=== PATIENT | male | born 1965 | race Caucasian/White ===

== ENCOUNTER 2017-12-29 09:04 | Observation (INO) ==
[2017-12-29] MEDS ORDERED: Ondansetron 4 MG/2 ML VIAL IVP PRN (09:26)
[2017-12-29] MEDS ORDERED: 0.9 % Sodium Chloride 1,000 ML IVC ONE ×5 (09:26→19:47)
[2017-12-29] MEDS ORDERED: *HR* FentaNYL (PF) 100 MCG/2 ML VIAL IVP ONE ×2 (09:26→11:19)
--- NOTE | 2017-12-29 09:42 | Emergency Department Note ---
Disposition Clinical Impression: Weakness generalized Rhabdomyolysis Qualifiers: Rhabdomyolysis type: traumatic Encounter type: initial encounter Qualified Code (s): T79.6XXA - Traumatic ischemia of muscle, initial encounter Disposition: Admitted As Inpatient Condition: Fair Time of Disposition: 13:53 Fall HPI - General Chief Complaint: ED Fall Stated Complaint: weakness/Fall Time Seen by Provider: 12/29/17 09:07 Source: patient, EMS Mode of arrival: ambulatory Limitations: altered mental status Nursing Notes Reviewed: Yes Vital Signs Reviewed: Yes - History of Present Illness HPI Narrative: 52 yo male cc head and neck pain after a fall three days ago, mechanical fall from standing after getting out of bed and was feeling very weak. He hit his head on the nightstand next to the bed. Patient did not have a loss of consciousness but has sudden onset of neck and pain in back of his head. Due to his weakness he was unable to go any further but was able to climb back into the bed. Patient states he stayed in bed for 3 days after which he tried to get out of bed this morning but fell back into the bed weak. A friend of his daughter came by and noticed him screaming for help. She called EMS. Patient states he got sharp pain in the middle of the spine from his lower cervical spine to his mid thoracic. Patient states the pain 10 out of 10, sharp , constant and worse with movement. Patient denies any recent illness viral or bacterial. - Related Data Home Medications Medication Instructions Recorded Confirmed Albuterol Sulfate [Ventolin Hfa] 2 puff IH Q4-6H PRN 12/29/17 12/29/17 Buspirone HCl [Buspar] 10 mg PO TID 12/29/17 12/29/17 Gabapentin [Neurontin] 800 mg PO QID 12/29/17 12/29/17 HydrOXYzine Pamoate [Vistaril] 50 mg PO TID 12/29/17 12/29/17 Nortriptyline HCl 50 mg PO BID 12/29/17 12/29/17 OLANZapine [Zyprexa] 20 mg PO DAILY 12/29/17 12/29/17 Allergies Allergy/AdvReac Type Severity Reaction Status Date / Time No Known Allergies Allergy Verified 04/02/17 06:02 Constitutional: Reports: weakness. Denies: fever, chills ENT ED: Denies: congestion Cardiovascular: Denies: chest pain Respiratory: Denies: cough Gastrointestinal: Denies: abdominal pain Musculoskeletal: Reports: back pain, neck pain Neurological: Reports: weakness. Denies: headache Fall PMH - Past Medical History Medical history: Reports: non-contributory Surgical history: Reports: non-contributory Psychiatric history: Reports: bipolar - Social History Smoking Status: Current every day smoker Alcohol use: Reports: none Drug use: Reports: none Physical Exam Vital Signs Temperature 98.4 F 12/29/17 09:06 Pulse Rate 73 12/29/17 09:06 Respiratory Rate 15 12/29/17 09:06 Blood Pressure 115/77 12/29/17 09:06 O2 Sat by Pulse Oximetry 93 12/29/17 09:06 Temperature 98.4 F 12/29/17 09:06 Pulse Rate 107 12/29/17 10:36 Respiratory Rate 18 12/29/17 10:36 Blood Pressure 124/75 12/29/17 10:36 O2 Sat by Pulse Oximetry 97 12/29/17 10:36 Oxygen Delivery Oxygen Delivery Nasal Cannula CONSTITUTIONAL: Alert and oriented X3, Pt looks unwell but not toxic. GCS 15, poorly nourished HEAD: Normocephalic; atraumatic. EYES: PERRL, no scleral icterus. NOSE: The nose is normal in appearance without rhinorrhea Mouth: oral mucosa very dry. RESP: Normal chest excursion with respiration; breath sounds clear and equal bilaterally; no wheezes, rhonchi, or rales CARD: Regular rhythm, without murmurs, rub or gallop ABD: Non-distended; non-tender, soft,without rigidity, rebound or guarding SKIN: Normal for age and race; warm and dry; no apparent lesions EXTREMITIES: Pulses are 2 plus and equal times 4 extremities, no peripheral edema or calf muscle pain. Bilateral LE extremely weak against gravity. NEUROLOGICAL: Patient is alert and oriented times three. Cranial nerves III- XII are intact. Sensory and motor functions are intact. Strength is 5/5 for flexion and extension in all 4 extremities. Patellar DTRS are equal and intact. Finger to nose testing is equal and normal bilaterally. No dysdiadochokinesis - General Limitations: no limitations General appearance: alert Course - Reevaluation(s) Reevaluation #1: CK elevated for Rhabdo Pt doing well. Time: 11:03 Reevaluation #2: Repeat dose of fentanyl ordered Time: 11:30 Reevaluation #3: LP accomplished and samples walked down to the lab. Time: 13:15 - Consultations Consultation #1: Dr. Cornejo, the [facility] has accepted Pt for admission at 1117hrs Time: 11:17 Vital Signs Temperature 98.4 F 12/29/17 09:06 Pulse Rate 73 12/29/17 09:06 Respiratory Rate 15 12/29/17 09:06 Blood Pressure 115/77 12/29/17 09:06 O2 Sat by Pulse Oximetry 93 12/29/17 09:06 Temperature 104.0 F H 12/29/17 19:34 Pulse Rate 129 12/29/17 19:34 Respiratory Rate 20 12/29/17 19:34 Blood Pressure 80/47 12/29/17 19:34 O2 Sat by Pulse Oximetry 96 12/29/17 19:34 Oxygen Delivery Oxygen Delivery Nasal Cannula Fall - MDM Narrative Medical decision making narrative: ground level mechanical fall secondary to extreme weakness x 3days ago Pt was be. Pt hit head on night stand, no loss of consciousness. Patient concerns me for possible intracranial hemorrhage, spinal cord injury, rhabdomyolysis, Guillain-[place]. Patient's CK came back elevated at 1657, and patient started on fluids for rhabdomyolysis, and Willis place for strict I/O to monitor renal function. Patient given fentanyl for pain, Lumbar puncture was accomplished. CSF studies sent off to the lab. Current plan is for admission for rhabdomyolysis, generalized weakness with bilateral lower extremities extremely weak when compared to upper extremities. Need to rule out causes for possible ascending weakness of Guillain[place], as well as possible spinal cord injury. Recommend MRI of spine since CT scans were negative for fractures. Patient understands and agrees to treatment and decision for admission. Patient 's daughter at bedside informed of the workup at her father's request. She also agrees with decision for admission. Patient CSF study came back positive for elevated proteins greater than 200 and neutrophils of 169, and placed on droplet precautions for concerns for meningitis but after review by infectious disease and feels more likely viral meningitis. Dr. Cornejo, the [facility] has accepted Pt for admission at 1117hrs - Lab Data Lab results reviewed: Yes I reviewed the patient's lab results. Lab results narrative: Short CBC 12/29/17 Range/Units 09:35 WBC 14.0 H (4.3-11.1) K/mcL Hgb 13.7 (12.9-16.9) g/dL Hct 40.9 (37.5-50.1) % Plt Count 187 (140-400) K/mcL Neutrophils # 12.2 H (1.6-8.9) K/mcL BMP 12/29/17 Range/Units 09:35 Sodium 136 (136-145) mEq/L Potassium 3.2 L (3.5-5.1) mEq/L Chloride 102 (98-107) mEq/L Carbon Dioxide 24 (23-29) mEq/L BUN 20 (6-20) mg/dL Creatinine 1.17 (0.70-1.30) mg/dL Glucose 113 H (70-105) mg/dL Calcium 9.4 (8.6-10.3) mg/dL Cardiac Enzymes 12/29/17 Range/Units 09:35 Troponin I 0.03 (< 0.04) ng/mL Liver Function 12/29/17 Range/Units 09:35 Total Bilirubin 0.8 (0.3-1.0) mg/dL AST 64 H (13-39) Units/L ALT 27 (7-52) Units/L Alkaline Phosphatase 72 (34-104) Units/L Albumin 3.7 (3.5-5.7) g/dL Result diagrams: 12/29/17 09:35 12/29/17 09:35 Lab Results 12/29/17 12/29/17 12/29/17 Range/Units 09:35 09:35 09:35 WBC 14.0 H (4.3-11.1) K/mcL RBC 4.96 (4.19-5.50) M/mcL Hgb 13.7 (12.9-16.9) g/dL Hct 40.9 (37.5-50.1) % MCV 82.5 L (83.0-100.0) fL MCH 27.6 L (28.0-33.3) pg MCHC 33.5 (31.6-35.5) g/dL RDW 13.7 (11.5-14.5) % Plt Count 187 (140-400) K/mcL MPV 10.1 (9.4-12.4) fL Immature Gran % 0.9 (0-4) % Seg Neutrophils % 86.7 % Lymphocytes % 5.0 % Monocytes % 7.3 % Eosinophils % 0.0 % Basophils % 0.1 % Neutrophils # 12.2 H (1.6-8.9) K/mcL Lymphocytes # 0.7 (0.6-4.6) K/mcL Monocytes # 1.0 (0.0-1.3) K/mcL Eosinophils # 0.0 (0.0-0.6) K/mcL Basophils # 0.0 (0.0-0.2) K/mcL Sodium 136 (136-145) mEq/L Potassium 3.2 L (3.5-5.1) mEq/L Chloride 102 (98-107) mEq/L Carbon Dioxide 24 (23-29) mEq/L BUN 20 (6-20) mg/dL Creatinine 1.17 (0.70-1.30) mg/dL Est GFR ( Amer) > 60 (> 60) Est GFR (Non-Af Amer) > 60 (> 60) BUN/Creatinine Ratio 17 (6-26) Glucose 113 H (70-105) mg/dL Calculated Osmolality 285 (280-300) Calcium 9.4 (8.6-10.3) mg/dL Total Bilirubin 0.8 (0.3-1.0) mg/dL AST 64 H (13-39) Units/L ALT 27 (7-52) Units/L Alkaline Phosphatase 72 (34-104) Units/L Creatine Kinase 1857 H (30-223) Units/L Troponin I 0.03 (< 0.04) ng/mL Serum Total Protein 7.6 (6.4-8.9) g/dL Albumin 3.7 (3.5-5.7) g/dL Globulin 3.9 H (2.4-3.5) g/dL Albumin/Globulin Ratio 0.9 L (1.1-2.2) TSH 0.434 (0.340-5.600) mcIU/mL Urine Color (Yellow) Urine Clarity (Clear) Urine pH (5.0-8.0) pH Units Ur Specific [place] (1.010-1.025) Urine Protein (Neg-Trace) mg/dL Urine Glucose (UA) (Normal) mg/dL Urine Ketones (Negative) mg/dL Urine Blood (Negative) Urine Nitrite (Negative) Urine Bilirubin (Negative) Urine Urobilinogen (Normal) mg/dL Ur Leukocyte Esterase (Negative) Urine Microscopic RBC (0-3) per hpf Urine Microscopic WBC (0-3) per hpf Ur Squamous Epith Cells (None-Few) per lpf Ur Renal Epithelial Cell (None-Few) per hpf Urine Bacteria (None-Few) per hpf Hyaline Casts (None-Few) per lpf Urine Mucus (Few) Ur Culture Indicated? (NO) 12/29/17 Range/Units 11:30 WBC (4.3-11.1) K/mcL RBC (4.19-5.50) M/mcL Hgb (12.9-16.9) g/dL Hct (37.5-50.1) % MCV (83.0-100.0) fL MCH (28.0-33.3) pg MCHC (31.6-35.5) g/dL RDW (11.5-14.5) % Plt Count (140-400) K/mcL MPV (9.4-12.4) fL Immature Gran % (0-4) % Seg Neutrophils % % Lymphocytes % % Monocytes % % Eosinophils % % Basophils % % Neutrophils # (1.6-8.9) K/mcL Lymphocytes # (0.6-4.6) K/mcL Monocytes # (0.0-1.3) K/mcL Eosinophils # (0.0-0.6) K/mcL Basophils # (0.0-0.2) K/mcL Sodium (136-145) mEq/L Potassium (3.5-5.1) mEq/L Chloride (98-107) mEq/L Carbon Dioxide (23-29) mEq/L BUN (6-20) mg/dL Creatinine (0.70-1.30) mg/dL Est GFR ( Amer) (> 60) Est GFR (Non-Af Amer) (> 60) BUN/Creatinine Ratio (6-26) Glucose (70-105) mg/dL Calculated Osmolality (280-300) Calcium (8.6-10.3) mg/dL Total Bilirubin (0.3-1.0) mg/dL AST (13-39) Units/L ALT (7-52) Units/L Alkaline Phosphatase (34-104) Units/L Creatine Kinase (30-223) Units/L Troponin I (< 0.04) ng/mL Serum Total Protein (6.4-8.9) g/dL Albumin (3.5-5.7) g/dL Globulin (2.4-3.5) g/dL Albumin/Globulin Ratio (1.1-2.2) TSH (0.340-5.600) mcIU/mL Urine Color Dark Yellow (Yellow) Urine Clarity Hazy (Clear) Urine pH 6.5 (5.0-8.0) pH Units Ur Specific [place] 1.025 (1.010-1.025) Urine Protein 30 H (Neg-Trace) mg/dL Urine Glucose (UA) Normal (Normal) mg/dL Urine Ketones Trace H (Negative) mg/dL Urine Blood Negative (Negative) Urine Nitrite Positive A (Negative) Urine Bilirubin Small H (Negative) Urine Urobilinogen Normal (Normal) mg/dL Ur Leukocyte Esterase Negative (Negative) Urine Microscopic RBC 0-3 (0-3) per hpf Urine Microscopic WBC 3-5 H (0-3) per hpf Ur Squamous Epith Cells Moderate H (None-Few) per lpf Ur Renal Epithelial Cell Few (None-Few) per hpf Urine Bacteria Many H (None-Few) per hpf Hyaline Casts None Seen (None-Few) per lpf Urine Mucus Few (Few) Ur Culture Indicated? YES A (NO) - Radiology Data Radiology results reviewed: Yes I reviewed the patient's radiology results. Cervical Spine CT 12/29/17 09:24 IMPRESSION: No acute abnormality of the cervical spine. Postoperative changes in the cervical spine as described above. D/ / Albin Bray MD / Albin Bray MD Interpreting Provider: Albin Bray MD Head CT 12/29/17 09:24 IMPRESSION: No acute intracranial abnormality. D/ / Jayson Londono MD / Jayson Londono MD Interpreting Provider: Jayson Londono MD Lumbar Spine CT 12/29/17 09:24 IMPRESSION: Multilevel degenerative disc disease of the thoracolumbar spine. No convincing evidence for acute fracture or malalignment. 4 mm right upper lobe pulmonary nodule. Dedicated CT of the chest recommended for further evaluation on a nonemergent/outpatient basis. . D/ / Cliff Huitron MD / Cliff Huitron MD Interpreting Provider: Cliff Huitron MD Thoracic Spine CT 12/29/17 09:24 IMPRESSION: Multilevel degenerative disc disease of the thoracolumbar spine. No convincing evidence for acute fracture or malalignment. 4 mm right upper lobe pulmonary nodule. Dedicated CT of the chest recommended for further evaluation on a nonemergent/outpatient basis. . D/ / Cliff Huitron MD / Cliff Huitron MD Interpreting Provider: Cliff Huitron MD - EKG Data EKG attestation: Yes I reviewed and interpreted this EKG. EKG shows normal: sinus rhythm Rate: tachycardia Rhythm: NSR ST segment depression in: v4 When compared to previous EKG there are: changes noted (04/02/2017) Interpretation: nonspecific ST-T wave changes Attestation Statement - Attestation Attestation: I, Oscar Hankins, examined this patient and my medical decision-making was reviewed with the HRBP/PA/Advanced Practice Nurse/Resident Physician. I agree with the documented findings, disposition and treatment plan as described except to the extent set forth below. History limitations: Patient condition 52-year-old male presents emergency Department with concerns of weakness. Patient states he fell 3 days ago while getting out of his bed, he was able to pull himself back into the bed however he has been unable to move or ambulate since that time. Patient reports pain and lack of sensation to the bilateral lower extremities. He also reports he is unable to flex his hips or knees secondary to weakness. Reflexes are present to the bilateral patellar area. CT of the head and spine are negative for acute fracture or intracranial hemorrhage. Patient has elevated CPK which coincides with his history of being confined to his bed. Initial troponin negative. Lumbar puncture was performed with the resident after a discussion of risks and benefits with the patient and with family. He had elevated white count in his CSF and he was placed on empiric droplet precautions and given 2 g of ceftriaxone until we had further results. I also had concerns of possible Guillain-[place] variant. Neurologist states that this is unlikely with elevated white blood cell count in the CSF. Patient will be admitted to hospital for further care and evaluation.
[2017-12-29 10:28] LABS: Basophils % 0.1 %; Hematocrit 40.9 % (37.5-50.1); Hemoglobin 13.7 g/dL (12.9-16.9); Immature Granulocytes % 0.9 % (0-4); Lymphocytes # 0.7 K/mcL (0.6-4.6); Mean Corpuscular HGB Conc 33.5 g/dL (31.6-35.5); Mean Corpuscular Hemoglobin 27.6 pg (28.0-33.3); Mean Corpuscular Volume 82.5 fL (83.0-100.0); Mean Platelet Volume 10.1 fL (9.4-12.4); Monocytes % 7.3 %; Neutrophils # 12.2 K/mcL (1.6-8.9); Platelet Count 187 K/mcL (140-400); Red Blood Count 4.96 M/mcL (4.19-5.50); Red Cell Distribution Width 13.7 % (11.5-14.5); Segmented Neutrophils % 86.7 %
[2017-12-29 10:31] LABS: Alanine Aminotransferase 27 Units/L (7-52); Albumin 3.7 g/dL (3.5-5.7); Albumin/Globulin Ratio 0.9 (1.1-2.2); Alkaline Phosphatase 72 Units/L (34-104); Aspartate Amino Transferase 64 Units/L (13-39); BUN/Creatinine Ratio 17 (6-26); Bilirubin,Total 0.8 mg/dL (0.3-1.0); Blood Urea Nitrogen 20 mg/dL (6-20); Calcium 9.4 mg/dL (8.6-10.3); Carbon Dioxide 24 mEq/L (23-29); Chloride 102 mEq/L (98-107); Creatine Kinase 1857 Units/L (30-223); Globulin 3.9 g/dL (2.4-3.5); Glucose 113 mg/dL (70-105); Osmolality,Calculated 285 (280-300); Potassium 3.2 mEq/L (3.5-5.1); Sodium 136 mEq/L (136-145); Total Protein 7.6 g/dL (6.4-8.9); eGFR For African Americans > 60 (> 60); eGFR For Non-African Americans > 60 (> 60)
[2017-12-29 10:42] LABS: Thyroid Stimulating Hormone 0.434 mcIU/mL (0.340-5.600)
[2017-12-29 11:42] LABS: Bilirubin,Urine Small (Negative); Blood,Urine Negative (Negative); Color,Urine Dark Yellow (Yellow); Glucose,Urine (UA) Normal (Normal); Ketones,Urine Trace mg/dL (Negative); Leukocyte Esterase,Urine Negative (Negative); Nitrite,Urine Positive (Negative); PH,Urine 6.5 pH Units (5.0-8.0); Protein,Urine 30 mg/dL (Neg-Trace); Specific Gravity,Urine 1.025 (1.010-1.025); Urobilinogen,Urine Normal (Normal)
[2017-12-29 11:44] LABS: Bacteria,Urine Many per hpf (None-Few); Hyaline Casts,Urine None Seen per lpf (None-Few); RBC,Urine 0-3 per hpf (0-3); Squamous Epithelial Cell,Urine Moderate per lpf (None-Few)
[2017-12-29 11:45] LABS: Clarity,Urine Hazy (Clear)
[2017-12-29 11:59] LABS: Mucus,Urine Few (Few)
[2017-12-29 12:00] LABS: Renal Epithelial Cells,Urine Few per hpf (None-Few)
--- NOTE | 2017-12-29 13:00 | Internal Med History&Physical ---
Date of Encounter: 12/29/17 Time of Encounter: 12:58 Assessment and Plan (1) Weakness of both lower extremities Current visit: No Status: Acute CT-Lumbar spine neg for fx or dx MRI L-spine pending Neurology consulted LP done and CSF labs pending (2) Rhabdomyolysis Current visit: No Status: Acute Qualifiers: Rhabdomyolysis type: traumatic Encounter type: initial encounter Qualified Code(s): T79.6XXA - Traumatic ischemia of muscle, initial encounter (3) Acute chest wall pain Current visit: No Status: Acute S/p fall hitting chest on night stand CXR pending Troponin nl but continue to trend (4) UTI (urinary tract infection) Current visit: No Status: Acute Rocephin started Qualifiers: Urinary tract infection type: site unspecified Hematuria presence: without hematuria Qualified Code(s): N39.0 - Urinary tract infection, site not specified Internal Medicine - H&P: HPI Chief complaint: fall History of present illness: 52 year old man who presented in the ER this am c/o of head and neck pain after a fall three days ago. He describes a mechanical fall from standing height landing on a carpeted floor and hitting his chest on the night stand. He hit his head on the floor (he thinks). He recalls he did not pass out and fall but tripped and fell. He lay on the floor about two hours before friends staying with him helped him back into bed where he sttayed for three days. He states he could not feel or move his legs at the time he was placed in bed and EMS was not called. He denies using ETOH or illicit drugs. Today he continues to state he cannot fell or move either leg, but withdrew his hip and lower extremity when either toe was squeezed. He felt pain too. He appears to have a UTI and has a leukocytosis. A UDS was ordered and the ER attending performed a LP. Labs are pending. His CT-head, C-spine, T-spine and L-Spine do not show acute fractures or dislocations. An MRI L-spine is also pending. He's A&Ox3 and hemodymaically stable. Additionally his CK is elevated raising concern for impending rhabdomyolysis but he has normal renal function now. . Past Med Surg Social Fam HX - Past Medical History Medical history: non-contributory Psychiatric history: bipolar - Past Surgical History Surgical History: non-contributory - Social History Smoking Status: Current every day smoker Smokeless Tobacco Status: No Alcohol use: none Drug use: none Internal Medicine - H&P: Meds Albuterol Sulfate [Ventolin Hfa] 2 puff IH Q4-6H PRN 12/29/17 [History] Buspirone HCl [Buspar] 10 mg PO TID 12/29/17 [History] Gabapentin [Neurontin] 800 mg PO QID 12/29/17 [History] HydrOXYzine Pamoate [Vistaril] 50 mg PO TID 12/29/17 [History] Nortriptyline HCl 50 mg PO BID 12/29/17 [History] OLANZapine [Zyprexa] 20 mg PO DAILY 12/29/17 [History] 3 Allergy/AdvReac Type Severity Reaction Status Date / Time No Known Allergies Allergy Verified 04/02/17 06:02 All Systems PM: A 10-system review of systems was performed and is negative for pertinent findings except as documented above in the HPI. - Constitutional Constitutional: falls, lethargy, weakness, no anorexia, no chills, no excessive sweating - EENT Eyes: no blurry vision, no change in vision, no diplopia, no photophobia, no seeing flashes, no tunnel vision Nose, mouth and throat: no bleeding gums, no dry mouth, no mouth lesions, no nasal congestion, no nasal obstruction - Cardiovascular Cardiovascular ROS IM: chest pain, no diaphoresis, no dyspnea, no edema, no irregular heart rhythm, no palpitations - Respiratory Respiratory: pain on inspiration, no cough, no dyspnea, no hemoptysis - Genitourinary Genitourinary ROS male: no dysuria, no nocturia, no urinary frequency, no urinary hesitancy, no urinary incontinence - Musculoskeletal Musculoskeletal ROS IM: muscle weakness, numbness, no atrophy, no deformity, no muscle cramps - Integumentary Integumentary IM: no erythema, no rash, no jaundice - Neurological Neurological ROS: abnormal movements, focal weakness, frequent falls, numbness, no loss of vision, no memory loss, no paresthesias, no radicular pain, no tingling - Psychiatric Psychiatric: no hallucinations, no suicidal ideation - Allergic/Immunologic Allergic/Immunologic: no tongue swelling, no throat swelling - Constitutional Vitals: Temp Pulse Resp BP Pulse Ox 98.4 F 113 14 126/76 94 12/29/17 09:06 12/29/17 12:11 12/29/17 12:11 12/29/17 12:11 12/29/17 12:11 General appearance: Present: mild distress, A&O X 3, pleasant - Head Head exam: Present: atraumatic, normocephalic - Eye Eye exam: Present: conjunctival injection, PERRL, conjuntiva pink, sclera anicteric. Absent: nystagmus Pupils: Present: PERRL - Neck Neck exam general surgery: Present: supple, trachea midline. Absent: lymphadenopathy - Respiratory Respiratory exam: Present: CTAB. Absent: accessory muscle use, rales, rhonchi, wheezes - Cardiovascular Cardiovascular exam: Present: RRR, +S1, +S2. Absent: diastolic murmur, gallop, rubs, systolic murmur - GI/Abdominal GI/Abdominal exam: Present: normal bowel sounds, soft, no peritoneal signs. Absent: distended, tenderness - Extremities Exam Extremities exam: Present: warm, radial pulses palpable and symmetrical. Absent : calf tenderness, cyanotic, pedal edema - Neurological Exam Neurological exam: Present: CN II-XII intact, oriented X3, no focal deficits. Absent: pronater drift, facial droop, speech deficit - Skin Skin exam: Present: abrasion, dry, intact. Absent: petechiae, rash Internal Med - H&P Results - Labs CBC & Chem 7: 12/29/17 09:35 12/29/17 09:35 Labs: Short CBC 12/29/17 Range/Units 09:35 WBC 14.0 H (4.3-11.1) K/mcL Hgb 13.7 (12.9-16.9) g/dL Hct 40.9 (37.5-50.1) % Plt Count 187 (140-400) K/mcL Neutrophils # 12.2 H (1.6-8.9) K/mcL BMP 12/29/17 09:35 Sodium 136 Potassium 3.2 L Chloride 102 Carbon Dioxide 24 BUN 20 Creatinine 1.17 Glucose 113 H Calcium 9.4 Cardiac Enzymes 12/29/17 Range/Units 09:35 Troponin I 0.03 (< 0.04) ng/mL Liver Function 12/29/17 Range/Units 09:35 Total Bilirubin 0.8 (0.3-1.0) mg/dL AST 64 H (13-39) Units/L ALT 27 (7-52) Units/L Alkaline Phosphatase 72 (34-104) Units/L Albumin 3.7 (3.5-5.7) g/dL Urine 12/29/17 Range/Units 11:30 Urine Color Dark Yellow (Yellow) Urine Clarity Hazy (Clear) Urine pH 6.5 (5.0-8.0) pH Units Ur Specific [place] 1.025 (1.010-1.025) Urine Protein 30 H (Neg-Trace) mg/dL Urine Glucose (UA) Normal (Normal) mg/dL - Impressions ITS Impressions Cervical Spine CT 12/29/17 09:24 IMPRESSION: No acute abnormality of the cervical spine. Postoperative changes in the cervical spine as described above. D/ / Albin Bray MD / Albin Bray MD Interpreting Provider: Albin Bray MD Head CT 12/29/17 09:24 IMPRESSION: No acute intracranial abnormality. D/ / Jayson Londono MD / Jayson Londono MD Interpreting Provider: Jayson Londono MD Lumbar Spine CT 12/29/17 09:24 IMPRESSION: Multilevel degenerative disc disease of the thoracolumbar spine. No convincing evidence for acute fracture or malalignment. 4 mm right upper lobe pulmonary nodule. Dedicated CT of the chest recommended for further evaluation on a nonemergent/outpatient basis. . D/ / Cliff Huitron MD / Cliff Huitron MD Interpreting Provider: Cliff Huitron MD Thoracic Spine CT 12/29/17 09:24
[2017-12-29] MEDS ORDERED: cefTRIAXone 1,000 MG in Water for inj. (sterile) 10 ML IVP SCH (14:00)
[2017-12-29 14:01] LABS: Red Blood Cell,CSF < 0.002 M/mcL
[2017-12-29 15:41] LABS: Glucose,CSF 55 mg/dL (40-70); Total Protein,CSF > 200 mg/dL (15-45)
[2017-12-29] MEDS: hydrOXYzine pamoate 25 MG CAPSULE PO SCH ×2 (15:49→19:12)
[2017-12-29] MEDS: Gabapentin 400 MG CAPSULE PO SCH ×2 (15:50→19:22)
[2017-12-29] MEDS ORDERED: CefTRIAXone 1,000 MG VIAL ONE (15:54)
--- NOTE | 2017-12-29 16:11 | Neurology - Consult Note ---
<Nicanor Franklin - Last Filed: 12/29/17 17:01> Date of Encounter: 12/29/17 Time of Encounter: 16:00 Assessment and Plan (1) Meningeoencephalitis, bacterial Current Visit: Yes Status: Acute 52yo male with AMS, nucal ragidity, diaphoresis and generalized weakness described as ascending has findings concerning for meningeoencephalitis. Supporting laboratory results: WBC 14, CSF nucleated cells 169, bands cells 11, glucose 55, segmented neutrophils 85, protein >200. - CSF Gram stain negative for bacteria or cells There is possibility for meningitis ( preserved glucose is less likely for bacterial, but does not rule out) there is a possibility of [place] with elevated protein and no bacteria but less likely with nucleated cells 169. Will add Meningioencephalitis coverage including coverage for Listeria and cryptococcus. Plan: - Ampicillin 2gm - Vancomycin dosed by pharmacy - Ceftriaxone 2gm Q12hrs - Acyclovir Labs to add: HSV 1&2 of CSF, Cryptococcus antigen (Lab no longer dose Ink stain) Discussed with Hospitalist Dr. Rodriguez regarding findings and recommendations and he will consult Infectious Disease. (2) Weakness generalized Current Visit: No Status: Acute Mr. Carrasco 52yo male brought to the emergency department secondary to a fall and progressive weakness over the past few days. His mental status is not quite clear and he demonstrates signs of delirium, historical facts are not accurate. He does complain of weakness, numbness and loss of sensation bilateral lower extremities, difficulty with exhibit carpenter and coordination in his upper extremities. His generalized appearance he looks uncomfortable and diaphoretic. He resists flexion of his neck and says it is too painful. Clinical examination demonstrates poor muscle strength in bilateral lower extremities, numerous injuries on the anterior shins and knees and split toenail on the left hallux likely secondary to poor sensation. Patient denies feeling up light touch to bilateral lower extremities. He demonstrates poor coordination of bilateral upper extremities and very poor exhibit carpenter. CT imaging of the spine demonstrates status post posterior instrumented fusion at C2-3 and C6-7. There is minimal lucency surrounding the bilateral C2 screws , may be related to minimal hardware loosening. The patient is status post bilateral laminectomies at C2 and C3. There is no evidence of an acute cervical spine fracture. CT imaging of the lumbar spine has multilevel degenerative disc disease no evidence of fracture or malignancies. Supporting laboratory results: WBC 14, MCV 82, creatinine kinase 1857, CSF nucleated cells 169, bands cells 11, glucose 55, segmented neutrophils 85, protein >200. - CSF Gram stain negative for bacteria or cells - No current drug screen, previous drug screens positive for benzodiazepines and cocaine There is possibility for meningitis ( preserved glucose is less likely for bacterial) there is a possibility of [place] with elevated protein and no bacteria but less likely with nucleated cells 169. Plan: - MRI of the lumbar spine - Patient may benefit from MRI of the brain and cervical spine - UDS with hx of Cocaine (3) Rhabdomyolysis Current Visit: No Status: Acute CK elevated at 1857 maybe elevated secondary to prolonged period of down time secondary to fall - review of his previous UDS screens they have been positive for Cocaine and Benzodiazapines, Cocaine could also be a factor in elevated CK. Qualifiers: Rhabdomyolysis type: traumatic Encounter type: initial encounter Qualified Code(s): T79.6XXA - Traumatic ischemia of muscle, initial encounter (4) History of cervical fracture Current Visit: Yes Status: Acute Mr Carrasco was seen in the emergency department in 03/03 secondary to a fall down stairs resulting in nondisplaced fractures of C3-C4 spinous processes and DISH. At that time it was documented that he had Cerebellar function: finger to nose: Abnormal Left, Motor strength - LUE: 0/5, Motor strength - LLE: 1/5, Motor strength - RUE: 4/5, Motor strength - RLE: 4/5, diandra neglect: Present on left, Babinski sign: Present on left (Up going on the left lower extremity). At that time sensory was intact to light touch and pin prick. CT scan from today 12/29/2017: FINDINGS: BONES/ALIGNMENT: There is bridging anterior osteophytes, likely related to DISH. The patient is status post posterior instrumented fusion at C2-3 and C6-7. There is minimal lucency surrounding the bilateral C2 screws, may be related to minimal hardware loosening. The patient is status post bilateral laminectomies at C2 and C3. There is no evidence of an acute cervical spine fracture. There is osseous fusion of C4 and C5 spinous processes and bilateral facet joints. There is mild splaying of the spinous processes at C7 and T1, likely chronic. There is normal alignment of the cervical spine. DEGENERATIVE CHANGES: There is multilevel degenerative disc disease with disc space narrowing, endplate changes and endplate osteophyte formation. SOFT TISSUES: There is no prevertebral soft tissue swelling. Today he demonstrated diffuse weakness as discussed in the physical examination , Babinski sign: Present bilaterally more so on the left. - Likely has residual neurologic deficits vs. findings secondary to cervical injury. Plan: - Continue to monitor inpatient - Lumbar MRI pending. History of Present Illness Chief complaint: Weakness HPI: Mr. Carrasco is a 52 year old male who presents as a poor historian was seen and evaluated patient bedside this afternoon. His presentation of his current medical situation is up visiting clearly. From what he is saying he started having numbness tingling and weakness starting in his toes and working its way up his lower extremities over the past few days. He has been feeling very weak and having difficulty getting up and moving around and states that he has loss of sensation in his lower extremities. He states that he fell at home and is unsure if he had his head, neck, back but thinks it may have been his chest. When asked about his upper extremities as he demonstrates diminished ability to exhibit carpenter or smooth coordination he states that he is having difficulty over the past 4 days has progressively gotten worse to. He is unable to provide any further medical history without episodes of delirium. Past Med Surg Social Fam HX - Past Medical History Medical history: non-contributory Psychiatric history: bipolar - Past Surgical History Surgical History: non-contributory - Social History Smoking Status: Current every day smoker Smokeless Tobacco Status: No Alcohol use: none Drug use: none Medications and Allergies Albuterol Sulfate [Ventolin Hfa] 2 puff IH Q4-6H PRN 12/29/17 [History] Buspirone HCl [Buspar] 10 mg PO TID 12/29/17 [History] Gabapentin [Neurontin] 800 mg PO QID 12/29/17 [History] HydrOXYzine Pamoate [Vistaril] 50 mg PO TID 12/29/17 [History] Nortriptyline HCl 50 mg PO BID 12/29/17 [History] OLANZapine [Zyprexa] 20 mg PO DAILY 12/29/17 [History] 3 Allergy/AdvReac Type Severity Reaction Status Date / Time No Known Allergies Allergy Verified 04/02/17 06:02 ROS unobtainable: due to mental status All Systems: A 10-system review of systems was performed and is negative for pertinent findings except as documented above in the HPI. Physical Examination - Vital Signs Vital Signs: Initial Vital Signs Temp Pulse Resp BP Pulse Ox 98.4 F 73 15 115/77 93 12/29/17 09:06 12/29/17 09:06 12/29/17 09:06 12/29/17 09:06 12/29/17 09:06 - Exam Exam: + nuchal ragidity + Babinski reflex - Constitutional General appearance: uncomfortable, acutely ill - Neurologic Sensorimotor examination: rigidity (There appears to be rigidity in his neck and he has slight extension while laying at rest.) Detailed motor examination: other Motor examination - right side: 1/5: exhibit carpenter, 2/5: wrist flexion, wrist extension, hip flexors, quadriceps, toe extension (EHL), plantarflexion, 3/5: deltoids, biceps, triceps Motor examination - left side: 1/5: exhibit carpenter, 2/5: triceps, wrist flexion, hip flexors, quadriceps, toe extension (EHL), plantarflexion, 3/5: deltoids, biceps Posture: rigid Mental Status Examination: oriented to person, opens eyes to voice, rambling Cranial nerve examination: no facial asymmetry is present Results - Laboratory Findings CBC and BMP: 12/29/17 09:35 12/29/17 09:35 Abnormal lab findings: Abnormal lab results WBC 14.0 K/mcL (4.3-11.1) H 12/29/17 09:35 MCV 82.5 fL (83.0-100.0) L 12/29/17 09:35 MCH 27.6 pg (28.0-33.3) L 12/29/17 09:35 Neutrophils # 12.2 K/mcL (1.6-8.9) H 12/29/17 09:35 Potassium 3.2 mEq/L (3.5-5.1) L 12/29/17 09:35 Glucose 113 mg/dL (70-105) H 12/29/17 09:35 AST 64 Units/L (13-39) H 12/29/17 09:35 Creatine Kinase 1857 Units/L (30-223) H 12/29/17 09:35 Globulin 3.9 g/dL (2.4-3.5) H 12/29/17 09:35 Albumin/Globulin Ratio 0.9 (1.1-2.2) L 12/29/17 09:35 Vitamin B12 207 pg/mL (250-1100) L 12/29/17 13:51 Urine Protein 30 mg/dL (Neg-Trace) H 12/29/17 11:30 Urine Ketones Trace mg/dL (Negative) H 12/29/17 11:30 Urine Nitrite Positive (Negative) A 12/29/17 11:30 Urine Bilirubin Small (Negative) H 12/29/17 11:30 Urine Microscopic WBC 3-5 per hpf (0-3) H 12/29/17 11:30 Ur Squamous Epith Cells Moderate per lpf (None-Few) H 12/29/17 11:30 Urine Bacteria Many per hpf (None-Few) H 12/29/17 11:30 Ur Culture Indicated? YES (NO) A 12/29/17 11:30 CSF Tot Nucleated Cells 169 TNC/mcL (0-5) H* 12/29/17 13:15 CSF Total Protein > 200 mg/dL (15-45) H 12/29/17 13:15 Consult Discharge Plan - Plan Referrals: NONE,PCP [Primary Care Provider] - <Tiffany Avila I - Last Filed: 12/29/17 21:33> Date of Encounter: 12/29/17 History of Present Illness HPI: Mr. Carrasco is a 52 year old male All Systems: A 10-system review of systems was performed and is negative for pertinent findings except as documented above in the HPI. Physical Examination - Vital Signs Vital Signs: Initial Vital Signs Temp Pulse Resp BP Pulse Ox 98.4 F 73 15 115/77 93 12/29/17 09:06 12/29/17 09:06 12/29/17 09:06 12/29/17 09:06 12/29/17 09:06 Results - Laboratory Findings CBC and BMP: 12/29/17 09:35 12/29/17 09:35 Abnormal lab findings: Abnormal lab results WBC 14.0 K/mcL (4.3-11.1) H 12/29/17 09:35 MCV 82.5 fL (83.0-100.0) L 12/29/17 09:35 MCH 27.6 pg (28.0-33.3) L 12/29/17 09:35 Neutrophils # 12.2 K/mcL (1.6-8.9) H 12/29/17 09:35 Potassium 3.2 mEq/L (3.5-5.1) L 12/29/17 09:35 Glucose 113 mg/dL (70-105) H 12/29/17 09:35 POC Glucose 133 (58-89) H 12/29/17 11:19 AST 64 Units/L (13-39) H 12/29/17 09:35 Creatine Kinase 1857 Units/L (30-223) H 12/29/17 09:35 Globulin 3.9 g/dL (2.4-3.5) H 12/29/17 09:35 Albumin/Globulin Ratio 0.9 (1.1-2.2) L 12/29/17 09:35 Vitamin B12 207 pg/mL (250-1100) L 12/29/17 13:51 Urine Protein 30 mg/dL (Neg-Trace) H 12/29/17 11:30 Urine Ketones Trace mg/dL (Negative) H 12/29/17 11:30 Urine Nitrite Positive (Negative) A 12/29/17 11:30 Urine Bilirubin Small (Negative) H 12/29/17 11:30 Urine Microscopic WBC 3-5 per hpf (0-3) H 12/29/17 11:30 Ur Squamous Epith Cells Moderate per lpf (None-Few) H 12/29/17 11:30 Urine Bacteria Many per hpf (None-Few) H 12/29/17 11:30 Ur Culture Indicated? YES (NO) A 12/29/17 11:30 CSF Tot Nucleated Cells 169 TNC/mcL (0-5) H* 12/29/17 13:15 CSF Total Protein > 200 mg/dL (15-45) H 12/29/17 13:15 - Attending Attestation Pt seen and examined agree with Resident documentation, my medical decision- making was reviewed with the Resident Physician, I agree with the documented findings, disposition and treatment plan as described except to the extent set forth below. Pt has significant abnormal CSF, suggest Broad spectrum antibiotic coverage as well as Acylovir, as cause seem to be more bacterial than viral , as far as weakness of both lower extremities is he is able to move with stimulation, and did t have flaccid paralysis, could be due to fall and laying down for some time, will get MRI of lumbar spine when stable, less likley GBS, specially CSF not consistent with it recommend ID input as well. will follow with you Tiffany Avila MD
[2017-12-29 17:19] LABS: Appearance,CSF Clear (Clear)
--- NOTE | 2017-12-29 17:50 | Event Note ---
Date of Encounter: 12/29/17 Time of Encounter: 17:41 I've spoken with infectious disease and he recommend Ceftriaxone 2g IVPB Q12 hours, Vancomycin with RPh dosing and Acylovir. No droplet precautions and no need for prophylaxic treatment of staff exposed per ID. We will try to determine his reaction and unless anaphylaxis go ahead with Rocephin. Otherwise change to Merrem. He's developed a 103.6 temp within the last few minutes. Give 1 gram IV tylenol.
[2017-12-29] MEDS ORDERED: Ketorolac 15 MG/ML VIAL IVP PRN (18:55)
[2017-12-29] MEDS ORDERED: Vancomycin 2,000 MG in D5% in Water 500 ML IVPB ONE (19:00)
[2017-12-29] MEDS: Acetaminophen IV 1,000 MG/100 ML INFUS..BTL IVPB ONE ×2 (19:06→23:21)
[2017-12-29] MEDS: cefTRIAXone 2,000 MG in Water for inj. (sterile) 20 ML 20 ML IVPB SCH (19:12)
[2017-12-29] MEDS: Acyclovir 750 MG in D5% in Water 250 ML IVPB SCH ×2 (19:22→23:24)
[2017-12-29] MEDS ORDERED: Ampicillin 2 GM in 0.9 % Sodium Chloride Mini Bag 100 ML IVPB SCH (20:00)
[2017-12-29] MEDS ORDERED: *HR* FentaNYL (PF) 100 MCG/2 ML VIAL IVP PRN (20:32)
[2017-12-29] MEDS ORDERED: Cyanocobalamin (B-12) 1,000 MCG/ML VIAL IM ONE (21:20)
[2017-12-29] MEDS: 0.9 % Sodium Chloride 1,000 ML IVC SCH (21:39)
[2017-12-29 21:55] LABS: ABG Base Excess -3 mEq/L (-2 to 3); ABG HCO3 22 mEq/L (21-27); ABG Oxygen Saturation 88 % (95-98); ABG PCO2 37 mmHg (35-45); ABG PH 7.38 pH Units (7.32-7.45); ABG PO2 55 mmHg (85-104); ABG TCO2 23 mEq/L (20-26)
[2017-12-29] MEDS ORDERED: Acetaminophen IV 1,000 MG/100 ML INFUS..BTL IVPB ONE (23:00)
[2017-12-29] MEDS ORDERED: Magnesium Sulfate 2 GM in D5% in Water 100 ML IVPB ONE (23:11)
[2017-12-29] MEDS: Pantoprazole 40 MG VIAL IVP SCH (23:43)
[2017-12-30 00:45] LABS: Adenovirus Not Detected (Not Detect); Coronavirus 229E Not Detected (Not Detect); Coronavirus HKU1 Not Detected (Not Detect); Coronavirus NL63 Not Detected (Not Detect); Coronavirus OC43 Not Detected (Not Detect); Human Metapneumovirus Not Detected (Not Detect); Human Rhinovirus/Enterovirus Not Detected (Not Detect)
[2017-12-30 00:46] LABS: Bordetella Pertussis Not Detected (Not Detect); Chlamydophila pneumoniae Not Detected (Not Detect); Influenza A Subtype 2009 H1 Not Detected (Not Detect); Influenza A Untypeable Not Detected (Not Detect); Influenza B Not Detected (Not Detect); Mycoplasma pneumoniae Not Detected (Not Detect); Parainfluenza Virus 1 Not Detected (Not Detect); Parainfluenza Virus 2 Not Detected (Not Detect); Parainfluenza Virus 3 Not Detected (Not Detect); Parainfluenza Virus 4 Not Detected (Not Detect); Respiratory Syncytial Virus Not Detected (Not Detect)
[2017-12-30] MEDS: Levalbuterol Neb 0.63 MG/3 ML IH SCH ×5 (01:10→21:15)
--- NOTE | 2017-12-30 04:14 | Event Note ---
Date of Encounter: 12/30/17 Time of Encounter: 03:15 I was approached by nurse of patient stating that she was concerned that the patient may have had a stroke. I immediately went to patient's bedside for evaluation. The patient was alert and orientedx3, however somewhat somnolent. 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 Cranial nerves 2-12 were grossly intact. The nurse did express concern that the left arm may have more weakness than the right, however I was not able to initially appreciate a significant difference. Additionally, the patient does have documented residual left sided weakness due to c-spine injury one year ago. I ordered a stat non-contrast head CT to ensure that no changes were present from prior exam. I contacted the Attending physician regarding my findings, and he agreed with stat head CT, and stated that he would come to examine the patient. I sought out Dr. Santoyo for second opinion, who found similar results with addition of complete loss of rectal tone. The CT of the head demonstrated no new acute findings. Based on these findings, we are not concerned for stroke, and we believe these symptoms and changes in neurological status is more associated with known encephalitis. CT of the head does rule out any significant edema, however we will schedule and MRI in the morning. We will continue regular neuro checks, and we will give particular attention to the patient's respiratory status in case he develops weakness in this musculature. The patient could be at risk for worsening respiratory status requiring ventilator assistance.
[2017-12-30] MEDS: Ketorolac 15 MG/ML VIAL IVP PRN ×2 (04:29→18:17)
[2017-12-30] MEDS: 0.9 % Sodium Chloride 1,000 ML IVC SCH ×3 (04:29→21:39)
[2017-12-30 05:53] LABS: Basophils % 0.2 %; Hematocrit 33.3 % (37.5-50.1); Immature Granulocytes % 0.7 % (0-4); Lymphocytes # 0.5 K/mcL (0.6-4.6); Lymphocytes % 4.5 %; Mean Corpuscular HGB Conc 33.3 g/dL (31.6-35.5); Mean Corpuscular Hemoglobin 27.6 pg (28.0-33.3); Mean Corpuscular Volume 82.8 fL (83.0-100.0); Mean Platelet Volume 9.6 fL (9.4-12.4); Monocytes # 0.7 K/mcL (0.0-1.3); Monocytes % 5.6 %; Neutrophils # 10.7 K/mcL (1.6-8.9); Platelet Count 138 K/mcL (140-400); Red Blood Count 4.02 M/mcL (4.19-5.50)
[2017-12-30 05:55] LABS: Hemoglobin 11.1 g/dL (12.9-16.9)
[2017-12-30 06:03] LABS: INR 1.1; Prothrombin Time 12.1 Seconds (9.4-12.1)
[2017-12-30 06:09] LABS: BUN/Creatinine Ratio 25 (6-26); Blood Urea Nitrogen 19 mg/dL (6-20); Carbon Dioxide 21 mEq/L (23-29); Chloride 109 mEq/L (98-107); Glucose 109 mg/dL (70-105); Osmolality,Calculated 283 (280-300); Potassium 3.9 mEq/L (3.5-5.1); Sodium 135 mEq/L (136-145); eGFR For African Americans > 60 (> 60); eGFR For Non-African Americans > 60 (> 60)
[2017-12-30 06:16] LABS: Platelet Estimate Decreased (Normal)
[2017-12-30 06:17] LABS: Toxic Vacuolation Present (Not Present)
--- NOTE | 2017-12-30 07:15 | Procedure Note ---
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 Consent: Detailed explanation of the procedure, treatment options, risks including but not limited to infection and bleeding, and benefits were explained to the patient. A verbal informed consent was obtained however the patient was unable to provide written consent due to muscle weakness. It was witnessed by nurse and attending. Technique: A time out was preformed identifying the correct procedure, the correct location with the nursing staff. The right neck was prepped with 2% chlorhexidine and draped with a full length sterile sheet in the usual fashion. The internal jugular vein was accessed under ultrasound guidance with an 18 gauge thin wall needle. A triple lumen was inserted via the seldinger technique. Blood was withdrawn from all lumens and flushed with normal saline. The catheter was sutured in place and a sterile dressing was applied over the site prior to removal of drapes. The patient tolerated the procedure well and there were no complications. Chest x ray: pending EBL: 5cc Complication: None Anesthesia: local Surgeon: Inocencio Camara Was there an medical assistant instructor present: Yes Cell Technician: Marilee Romeo Estimated blood loss (cc): 5 IV fluids (cc): 10 Specimen: None Pathology: none sent Condition: critical Disposition: ICU
--- NOTE | 2017-12-30 07:26 | Pulmonology Consult Note ---
<Inocencio Camara - Last Filed: 12/30/17 07:27> Date of Encounter: 12/30/17 Time of Encounter: 21:30 Assessment and Plan (1) Acute respiratory failure with hypoxia Current Visit: Yes Status: Acute Acute hypoxic respiratory failure Patient does have history of COPD, has had worsening respiratory status throughout his stay at the hospital He has been tachypneic, and has developed severe rails while on fluids for sepsis The patient has been placed on BiPAP and is oxygenating at 89% We will check NIF plus vital capacity, if vital capacity lower than 1 L and might need intubation Breathing treatments as needed We will watch this patient very carefully (2) Sepsis Current Visit: Yes Status: Acute 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 Suspected encephalitis, Temp 104, HR 125, RR 20, BP 68/42 Patient appears to be maintaining MAP > 70 on IVF, recieved total of 4.5 L normal saline He became fluid overloaded later in the morning, and fluids needed to be stopped at which time he became hypotensive with map <60 Dopamine was started peripherally to maintain BP initially while CVC was placed Patient BP will be maintained with pressors as needed Infectious disease was consulted from the ED, recommendations appreciated Qualifiers: Sepsis type: sepsis due to unspecified organism Qualified Code(s): A41.9 - Sepsis, unspecified organism (3) Meningeoencephalitis, bacterial Current Visit: Yes Status: 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 Gram stain initially negative Head CT negative in ED, repeat overnight negative. MRI of the head pending Patient was placed on IV antibiotics including Ampicillin, vancomycin, ceftriaxone, and acyclovir Neurology is on board, appreciate recommendations - may need to start IVIG We will closely watch respiratory status and be prepared to intubate if needed (4) COPD (chronic obstructive pulmonary disease) Current Visit: Yes Status: Acute COPD without acute exacerbation The patient has documented history of COPD Physical exam consistent, wheezes present, rhonchi throughout The patient is on broad spectrum antibiotics We will check NIF and Vital Capacity, May require intubation Breathing treatments as needed Qualifiers: COPD type: unspecified COPD Qualified Code(s): J44.9 - Chronic obstructive pulmonary disease, unspecified (5) History of cervical fracture Current Visit: No Status: Chronic History of cervical fracture with repair about one year ago, stable (6) DVT prophylaxis Current Visit: Yes Status: Acute SQ Heparin History of Present Illness Consult date: 12/29/17 Requesting physician: Inocencio Camara Reason for consult: other (Septic shock) Chief complaint: Meningioencephalitis History of present illness: Mr. Carrasco is a 52-year-old gentleman with history of cervical fracture status post surgical repair one year ago, COPD, psychiatric complaints who presented to the emergency department with pain in his head and hip after a mechanical fall at home approximately 3 days ago. The patient has been developing severe pain ever since the fall. Apparently he called for help from her friend earlier today, and when his friend came he called EMS for him. Apparently the patient was experiencing total weakness in both of his legs as well as loss of sensation in his legs. He was taken to the edema ER at which time imaging was done of his entire axial spine as well as his head which did not demonstrate any acute injuries. While in the emergency room the patient did have a lumbar puncture which demonstrated elevated protein and white blood cells and his CSF. Further, the patient developed rapidly a high fever of 104 and began to become very hypotensive. Neurology and infectious disease for consultation and began treatment for meningeal encephalitis. He was admitted by the hospitalist to the ICU where he could receive treatment for severe sepsis, and possibly pressors. The patient did state that he was having problems with his legs, however he was now able to move them again. The patient received IV Tylenol and Toradol which did bring his fevers down, however he did have hypotension throughout the night. Apparently at around 4 AM the patient did develop severe weakness bordering on paralysis as well as complete loss of sensation in his lower extremities, and started to develop severe weakness in his hands and distal upper extremity. At that time the patient received a repeat head CT which did not demonstrate any acute changes. Further, the patient continued to become more hypotensive and somnolent. Upon speaking to the patient, he states that he's feeling significantly worse. He does admit to flu vaccine in september. Past Med Surg Social Fam HX - Past Medical History Medical history: non-contributory Psychiatric history: bipolar - Past Surgical History Surgical History: non-contributory - Social History Smoking Status: Current every day smoker Smokeless Tobacco Status: No Alcohol use: none Drug use: none Medications and Allergies Albuterol Sulfate [Ventolin Hfa] 2 puff IH Q4-6H PRN 12/29/17 [History] Buspirone HCl [Buspar] 10 mg PO TID 12/29/17 [History] Gabapentin [Neurontin] 800 mg PO QID 12/29/17 [History] HydrOXYzine Pamoate [Vistaril] 50 mg PO TID 12/29/17 [History] Nortriptyline HCl 50 mg PO BID 12/29/17 [History] OLANZapine [Zyprexa] 20 mg PO DAILY 12/29/17 [History] 3 Allergy/AdvReac Type Severity Reaction Status Date / Time No Known Allergies Allergy Verified 04/02/17 06:02 All Systems: A 10-system review of systems was performed and is negative for pertinent findings except as documented above in the HPI. Review of Systems: Constitutional: Admits to fevers, chills, generalized fatigue Head/Neck: Admits to SHANE, neck stiffness EENT: Denies vision changes/blurriness, rhinorrhea, congestion, sore throat CVS: Admits to intermittent chest pain. Denies palpitations, JAMES, orthopnea, edema, PND Pulm: Admits to SOB that is worsening, cough with sputum, wheezing, pleuritic pain. Denies hemoptysis GI: Denies abdominal pain, nausea, vomiting, diarrhea, constipation, melena, hematemasis : Denies dysuria, increased frequency, urgency, hematuria, urinary incontinence Heme: Denies ease of bleeding or bruising MSK: Admits to weakness/paralysis in his lower extremities, and in his hands. He does have chronic left sided weakness following cervical spin injury one year ago. Skin: Denies rashes, ulcers, color changes Neuro: Admits to SHANE, parasthesias/paralysis. Denies confusion, disorientation, loss of consciousness Physical Examination Vital Signs: Vital Signs, Last 4 Hours Temp Pulse Resp BP Pulse Ox 12/30/17 06:00 98 14 86/57 94 12/30/17 05:41 21 78/53 88 12/30/17 05:35 98 20 68/42 89 12/30/17 05:15 102 12/30/17 04:20 97.9 F 12/30/17 04:00 97 16 92/66 95 12/30/17 03:47 19 99/70 95 Gen: Vitals noted. Patient is mildly to moderately distressed at time of exam. AAOx3 HEENT: PERRL/EOMI, oropharynx clear, Normocephalic, atraumatic Neck: Supple. No adenopathy. Cardiac: RRR but rapid, no murmur, +S1/S2 Pulmonary: B/L wheezes L>R with worsening rhonchi throughout and developing coarse rales bibasilarly Abdomen: soft, nontender, BS noted, no guarding Back: Nontender throughout. Extremities: no BLE edema, nontender calf, no cyanosis or clubbing Neuro: A&Ox3. CN 2-12 grossly intact. 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 There is no sensation in the LEs b/l Reflexes: 2/4 in b/l LE DTRs at patellar and achilles. 2/4 in UEs at brachioradialis Babinski positive b/l Results - Laboratory Findings CBC and BMP: 12/30/17 05:42 12/30/17 05:42 ABG ABG pH 7.38 pH Units (7.32-7.45) 12/29/17 21:49 ABG pCO2 37 mmHg (35-45) 12/29/17 21:49 ABG pO2 55 mmHg (85-104) L 12/29/17 21:49 ABG O2 Saturation 88 % (95-98) L 12/29/17 21:49 PT/INR, D-dimer PT 12.1 Seconds (9.4-12.1) 12/30/17 05:42 Abnormal lab findings: Abnormal lab results WBC 12.0 K/mcL (4.3-11.1) H 12/30/17 05:42 RBC 4.02 M/mcL (4.19-5.50) L 12/30/17 05:42 Hgb 11.1 g/dL (12.9-16.9) L D 12/30/17 05:42 Hct 33.3 % (37.5-50.1) L 12/30/17 05:42 MCV 82.8 fL (83.0-100.0) L 12/30/17 05:42 MCH 27.6 pg (28.0-33.3) L 12/30/17 05:42 Plt Count 138 K/mcL (140-400) L 12/30/17 05:42 Neutrophils # 10.7 K/mcL (1.6-8.9) H 12/30/17 05:42 Lymphocytes # 0.5 K/mcL (0.6-4.6) L 12/30/17 05:42 Toxic Vacuolation Present (Not Present) A 12/30/17 05:42 Platelet Estimate Decreased (Normal) L 12/30/17 05:42 ABG pO2 55 mmHg (85-104) L 12/29/17 21:49 ABG O2 Saturation 88 % (95-98) L 12/29/17 21:49 ABG Base Excess -3 mEq/L (-2 to 3) L 12/29/17 21:49 Sodium 135 mEq/L (136-145) L 12/30/17 05:42 Chloride 109 mEq/L (98-107) H 12/30/17 05:42 Carbon Dioxide 21 mEq/L (23-29) L 12/30/17 05:42 Glucose 109 mg/dL (70-105) H 12/30/17 05:42 POC Glucose 158 (58-89) H 12/29/17 21:17 Calcium 8.0 mg/dL (8.6-10.3) L 12/30/17 05:42 AST 64 Units/L (13-39) H 12/29/17 09:35 Creatine Kinase 821 Units/L (30-223) H 12/29/17 22:36 Globulin 3.9 g/dL (2.4-3.5) H 12/29/17 09:35 Albumin/Globulin Ratio 0.9 (1.1-2.2) L 12/29/17 09:35 Prealbumin 3.4 mg/dL (17.0-34.0) L 12/29/17 22:31 Vitamin B12 207 pg/mL (250-1100) L 12/29/17 13:51 Urine Protein 30 mg/dL (Neg-Trace) H 12/29/17 11:30 Urine Ketones Trace mg/dL (Negative) H 12/29/17 11:30 Urine Nitrite Positive (Negative) A 12/29/17 11:30 Urine Bilirubin Small (Negative) H 12/29/17 11:30 Urine Microscopic WBC 3-5 per hpf (0-3) H 12/29/17 11:30 Ur Squamous Epith Cells Moderate per lpf (None-Few) H 12/29/17 11:30 Urine Bacteria Many per hpf (None-Few) H 12/29/17 11:30 Ur Culture Indicated? YES (NO) A 12/29/17 11:30 CSF Tot Nucleated Cells 169 TNC/mcL (0-5) H* 12/29/17 13:15 CSF Total Protein > 200 mg/dL (15-45) H 12/29/17 13:15 - Microbiology Findings Microbiology Findings: Microbiology, Last 48 Hours 12/29/17 23:37 Legionella Antigen - Final Urine,Catheterized Streptococcus pneumoniae Antigen (M - Final 12/29/17 13:15 Gram Stain - Final Cerebral Spinal Fluid - Clinical Findings Intake & Output: Intake & Output 12/29/17 12/29/17 12/30/17 15:59 23:59 07:59 Intake Total 1000 / 2000 1730 / 1730 1531 / 1531 Output Total 1200 / 1200 350 / 350 550 / 550 Balance -200 / 800 1380 / 1380 981 / 981 Weight 91.7 kg 91.7 kg Consult Discharge Plan - Plan Referrals: NONE,PCP [Primary Care Provider] - <Moshe Tee - Last Filed: 12/30/17 13:06> Date of Encounter: 12/30/17 All Systems: A 10-system review of systems was performed and is negative for pertinent findings except as documented above in the HPI. Physical Examination Vital Signs: Vital Signs, Last 4 Hours Temp Pulse Resp BP Pulse Ox 12/30/17 12:36 98.1 F 12/30/17 11:00 90 13 108/70 96 12/30/17 10:46 20 96 12/30/17 10:00 85 13 96/63 96 12/30/17 09:00 97.5 F L 96 19 102/67 93 Results - Laboratory Findings CBC and BMP: 12/30/17 05:42 12/30/17 05:42 ABG ABG pH 7.38 pH Units (7.32-7.45) 12/29/17 21:49 ABG pCO2 37 mmHg (35-45) 12/29/17 21:49 ABG pO2 55 mmHg (85-104) L 12/29/17 21:49 ABG O2 Saturation 88 % (95-98) L 12/29/17 21:49 PT/INR, D-dimer PT 12.1 Seconds (9.4-12.1) 12/30/17 05:42 Abnormal lab findings: Abnormal lab results WBC 12.0 K/mcL (4.3-11.1) H 12/30/17 05:42 RBC 4.02 M/mcL (4.19-5.50) L 12/30/17 05:42 Hgb 11.1 g/dL (12.9-16.9) L D 12/30/17 05:42 Hct 33.3 % (37.5-50.1) L 12/30/17 05:42 MCV 82.8 fL (83.0-100.0) L 12/30/17 05:42 MCH 27.6 pg (28.0-33.3) L 12/30/17 05:42 Plt Count 138 K/mcL (140-400) L 12/30/17 05:42 Neutrophils # 10.7 K/mcL (1.6-8.9) H 12/30/17 05:42 Lymphocytes # 0.5 K/mcL (0.6-4.6) L 12/30/17 05:42 Toxic Vacuolation Present (Not Present) A 12/30/17 05:42 Platelet Estimate Decreased (Normal) L 12/30/17 05:42 ABG pO2 55 mmHg (85-104) L 12/29/17 21:49 ABG O2 Saturation 88 % (95-98) L 12/29/17 21:49 ABG Base Excess -3 mEq/L (-2 to 3) L 12/29/17 21:49 Sodium 135 mEq/L (136-145) L 12/30/17 05:42 Chloride 109 mEq/L (98-107) H 12/30/17 05:42 Carbon Dioxide 21 mEq/L (23-29) L 12/30/17 05:42 Glucose 109 mg/dL (70-105) H 12/30/17 05:42 POC Glucose 158 (58-89) H 12/29/17 21:17 Calcium 8.0 mg/dL (8.6-10.3) L 12/30/17 05:42 AST 64 Units/L (13-39) H 12/29/17 09:35 Creatine Kinase 821 Units/L (30-223) H 12/29/17 22:36 Globulin 3.9 g/dL (2.4-3.5) H 12/29/17 09:35 Albumin/Globulin Ratio 0.9 (1.1-2.2) L 12/29/17 09:35 Prealbumin 3.4 mg/dL (17.0-34.0) L 12/29/17 22:31 Vitamin B12 207 pg/mL (250-1100) L 12/29/17 13:51 Urine Protein 30 mg/dL (Neg-Trace) H 12/29/17 11:30 Urine Ketones Trace mg/dL (Negative) H 12/29/17 11:30 Urine Nitrite Positive (Negative) A 12/29/17 11:30 Urine Bilirubin Small (Negative) H 12/29/17 11:30 Urine Microscopic WBC 3-5 per hpf (0-3) H 12/29/17 11:30 Ur Squamous Epith Cells Moderate per lpf (None-Few) H 12/29/17 11:30 Urine Bacteria Many per hpf (None-Few) H 12/29/17 11:30 Ur Culture Indicated? YES (NO) A 12/29/17 11:30 CSF Tot Nucleated Cells 169 TNC/mcL (0-5) H* 12/29/17 13:15 CSF Total Protein > 200 mg/dL (15-45) H 12/29/17 13:15 - Microbiology Findings Microbiology Findings: Microbiology, Last 48 Hours 12/29/17 23:37 Legionella Antigen - Final Urine,Catheterized Streptococcus pneumoniae Antigen (M - Final 12/29/17 13:15 Gram Stain - Final Cerebral Spinal Fluid - Clinical Findings Intake & Output: Intake & Output 12/29/17 12/30/17 12/30/17 23:59 07:59 15:59 Intake Total 1730 / 1730 1781 / 1781 Output Total 350 / 350 550 / 550 325 / 325 Balance 1380 / 1380 1231 / 1231 -325 / -325 Weight 91.7 kg 91.7 kg - Attending Attestation I examined this patient and my medical decision-making was reviewed with the Resident Physician. I agree with the documented findings, disposition and treatment plan as described except to the extent set forth below. Patient seen and examined. Labs, radiology, chart personally reviewed. Agree with resident's history and physical, assessment, plan with following comments: REFERRAL AGENT: Patient follows commands, Patient has neurodeficit sensory and motor mainly in the lower extremities which is asymmetrical and he remained to have reflexes. I have discussed with neurologist and also infectious disease to follow up with patient. Since picture is not clear I have treated patient with IVIG and patient clinically felt better after that. The picture is favoring infectious etiology, however we will wait for more recommendations and there is possibility that patient might need to be transferred to [place]. Pulmonary: Acceptable oxygenation and ventilation on noninvasive ventilation and patient has history of smoking. I have checked his NIF and vital capacity and both are good numbers and no need for mechanical invasive invasion. We will continue monitoring. Will start patient on bronchodilators. Cardiovascular: Patient is requiring dopamine and echocardiogram to check his cardiac function. GI: Nutrition per dietary and GI prophylaxis per routine Heme: DVT prophylaxis per routine ID: Continue antibiotics and plan to de-escalation. Patient's lactic acid is not elevated however his hypotensive and requiring dopamine with all his picture septic shock in the differential diagnosis Renal; urine out put and renal funtion reviewed Endorcine: blood glucose is monitored Lines: all lines checked and no evidence of infections Skin: skin care to prevent pressure ulcers per nursing routine care I spent 45 min of Critical Care time with this patient. It involved decision making of high complexity to assess, manipulate, and support vital organ system failure and/or to prevent further life threatening deterioration of the patient' s condition. The time involved in the performance of separately reportable procedures was not counted toward critical care time.
[2017-12-30] MEDS: cefTRIAXone 2,000 MG in Water for inj. (sterile) 20 ML 20 ML IVPB SCH ×2 (08:13→18:17)
[2017-12-30] MEDS: Vancomycin 1,500 MG in D5% in Water 250 ML IVPB SCH ×2 (08:13→18:19)
[2017-12-30] MEDS: Pantoprazole 40 MG VIAL IVP SCH (08:13)
[2017-12-30] MEDS ORDERED: *HR* Heparin 5,000 UNIT/ML VIAL SQ SCH (08:15)
[2017-12-30] MEDS ORDERED: OLANZapine 10 MG TAB.RAPDIS PO SCH (09:00)
[2017-12-30] MEDS ORDERED: Thiamine (B-1) 100 MG in 0.9 % Sodium Chloride 50 ML IVPB SCH (09:15)
[2017-12-30] MEDS ORDERED: IVIG (wt based) 5 GM/50 ML INFUS..BTL IVC ONE (09:40)
[2017-12-30] MEDS ORDERED: Immune Globulin, Gamma (IGG) 10 GM/100 ML INFUS..BTL IVC ONE (09:45)
[2017-12-30] MEDS ORDERED: Immune Globulin, Gamma (IGG) 20 GM/200 ML INFUS..BTL IVC ONE (09:45)
[2017-12-30] MEDS ORDERED: Immune Globulin, Gamma (IGG) 5 GM/50 ML INFUS..BTL IVC ONE (09:45)
[2017-12-30] MEDS: Budesonide/Formoterol 160/4.5 MDI IH SCH ×2 (10:46→21:15)
--- NOTE | 2017-12-30 11:15 | Infectious Disease Consult ---
Date of Encounter: 12/30/17 Time of Encounter: 08:45 Assessment and Plan (1) Septic shock Status: Acute Assessment and plan: Patient presented with an elevated temperature at 104.4, tachycardia at 130, tachypnea at 20 and leukocytosis of 14.0 Suspected source of infection being meningeoencephalitis and pneumonia Patient received 5 L of fluids in the ER is still required pressor support with dopamine in order to maintain blood pressure in the 80s to 90s systolic He has had extensive imaging performed including CTs of his head, cervical, lumbar, and thoracic spine, MRI of his brain, thoracic and lumbar spine, and chest x-ray The CT of the spine and head showed no acute abnormalities and redemonstrated hardware is cervical vertebra CT of lumbar and thoracic spine showed degenerative disc changes and incidental pulmonary nodule MRI of the lumbar spine shows mild spinal canal stenosis at L2-L3 and L3-L4 MRI of brain showed moderate chronic small vessel ischemic disease, but no acute findings or evidence of encephalitis MRI of thoracic spine showed question of epidural hematoma as 3 mm max thickness and not contributing to spinal canal narrowing Chest x-ray showed some right greater than left infiltrates and vascular congestion (2) Meningeoencephalitis, 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 He does report having mild photophobia on exam. White count elevated to 14.0 Lumbar puncture showed increased protein and nucleated cells, decreased glucose , and mildly elevated white blood cell count. Although one would expect a greater number of white blood cells, his CSF findings are concerning for bacterial meningitis Patient also has/had some encephalopathy being slightly lethargic suggestive of encephalopathy contributing Encephalitis was not seen on imaging nor were any acute cranial findings Some degenerative disease and spinal canal stenosis were observed however Patient was started on ampicillin, ceftriaxone, vancomycin, and acyclovir in the emergency room We will stop the ampicillin Continue ceftriaxone, vancomycin, and acyclovir We will wait for results of CSF Gram stain and cultures We will obtain additional lab work investigating potential pathogen responsible , including: HSV 1 and 2 PCR in the CSF, VZV PCR in the CSF, AFB smear and the CSF, VDRL and the CSF, strep pneumo antigen (3) Pneumonia Status: Acute Assessment and plan: Patient does report mild cough that the nurse says is productive of thick brownish mucus. Pulmonary exam reveals right greater than left rhonchi and chest x-ray suggest pulmonary infiltrates. These findings suggest pneumonia. Streptococcus pneumoniae could cause both pneumonia and meningeal encephalitis Patient is on ceftriaxone and vancomycin already and these will likely treat his pneumonia Will obtain strep pneumo antigen as above Qualifiers: Pneumonia type: due to unspecified organism Laterality: right Lung location: unspecified part of lung Qualified Code(s): J18.9 - Pneumonia, unspecified organism (4) Hepatitis C Status: Chronic Assessment and plan: Patient reports having history of hepatitis C. He also reports history of IV drug usage with last use 3 months ago. Qualifiers: Viral hepatitis chronicity: unspecified Hepatic coma status: without hepatic coma Qualified Code(s): B19.20 - Unspecified viral hepatitis C without hepatic coma (5) Drug abuse, IV Status: Acute Assessment and plan: Patient reports having history of IV drug usage. Reports he is trying to stop those last usage was 3 months ago. He does report that his girlfriend also uses IV drugs and that recently she has stopped using pain needles. (6) Tobacco use Status: Acute Assessment and plan: Patient has 20 year smoking history, smoking 1 PPD. 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 Carrasco is a 52 year old male with prior medical history of COPD, hepatitis C, IV drug use, and prior cervical spine injury following fall in 03/03. He presented to [facility] on 12/29/17 having suffered a fall at home while getting out of bed and was noticed to have significant weakness in bilateral lower extremities. He was admitted under concerns for meningeoencephalitis. Neurology and infectious disease were consulted at the time of admission for concerns recommendations for meningeoencephalitis. Patient arrived at [facility] via squad having been found down at home for 2 hours. He reportedly had a fall on getting out of bed during which time he had his chest on a nightstand and his head on the floor. Due to the weakness in his lower extremities he was unable to stand up and had been on the floor. He does report that he had been feeling under the weather for several days prior to this incident, not having moved much from bed since last . Since that time he has felt like he has had a mild headache, fatigue, and general body aches. He does report that he has had worsened weakness the last 3 days from his baseline. Following his fall with neck injury last year he required hardware for fusion and C 12/20 and 04/23 and developed DISH. This event left him with residual neurological deficits including numbness in bilateral lower extremities up to and including the saddle region. Since that incident he also reports having occasional neck pain, neck stiffness and mild headaches. He does report having history of hepatitis C and history of IV drug use with last usage 3 months ago. Currently he lives at home alone, without pets, as his girlfriend is currently incarcerated. He reports that she also uses IV drugs that recently she has not been using clean needles. He denies having any sick exposures, exposures to children, or travel. 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 At the time of presentation he was found to have a highly elevated temperature at 104.2, tachycardia of 136, and tachypnea up to 24. He was initially slightly encephalopathic at presentation, but did improve shortly thereafter. He was complaining of slight headache, but it was unclear whether he had nuclear rigidity even his previous neck surgeries. He was also having leukocytosis of 14.0 and underwent lumbar puncture that showed a significant quantity of protein and nucleated cells. Given his blood glucose at the time of presentation, his glucose was reduced. A UA obtained at the time of admission is suggestive of UTI. Although his prior cervical injury had left him with residual deficits, he appeared to have significantly worsened to the point were he couldn't walk and had significant weakness in his upper extremities as well. Imaging was obtained with CT head and neck that showed no acute findings, CT of the lumbar and thoracic spine that showed degenerative changes but no acute findings, lumbar MRI showed mild spinal stenosis in L2-4, Brain MRI that showed chronic small vessel disease without evidence of abnormality or encephalitis, Thoracic spine MRI showed epidural hematoma (3 mm max, non-contributory to stenosis), and CXR that shows improved aeration of the lung bases with R>L infiltrates. He was started on acyclovir, ceftriaxone, ampicillin, and vancomycin at presentation. He was given 5 L of fluids total, but was still having problems maintain his blood pressure necessitating starting dopamine to help bolster his bp. At this time, the patient has not had elevation in his temperature since 1930 yesterday, but continues to have tachycardia, tachypnea, and requiring oxymask to maintain oxygenation in the mid-90s.His WBC went down to 12 and hemoglobin went down to 11.1. A respiratory infection panel did not show any pathogens. CC: Manuel Mann MD Past Med Surg Social Fam HX - Past Medical History Medical history: COPD, other (Hepatitis C, prior neck injury with hardware in C2 -C3 and C6-C7, significant bilateral lower extremity numbness with saddle anesthesia) Psychiatric history: bipolar - Past Surgical History Surgical History: non-contributory - Social History Smoking Status: Current every day smoker Smokeless Tobacco Status: No Alcohol use: none Drug use: none Infectious Disease-CN:Meds Albuterol Sulfate [Ventolin Hfa] 2 puff IH Q4-6H PRN 12/29/17 [History] Buspirone HCl [Buspar] 10 mg PO TID 12/29/17 [History] Gabapentin [Neurontin] 800 mg PO QID 12/29/17 [History] HydrOXYzine Pamoate [Vistaril] 50 mg PO TID 12/29/17 [History] Nortriptyline HCl 50 mg PO BID 12/29/17 [History] OLANZapine [Zyprexa] 20 mg PO DAILY 12/29/17 [History] 3 Allergy/AdvReac Type Severity Reaction Status Date / Time No Known Allergies Allergy Verified 04/02/17 06:02 Review of systems: Gen: Denies fever, denies chills, denies diaphoresis, reports weakness and fatigue CV: Denies chest pain, denies palpitations HEENT: Denies photophobia, denies photophobia, denies vision changes, denies floaters in vision, denies sore throat, denies difficulty swallowing Resp: Denies shortness of breath, reports mild, nonproductive cough, denies changes in phlegm production GI: Denies nausea, denies vomiting, denies abdominal pain, denies constipation, denies diarrhea MSK: denies arthralgia, reports significant lower extremity weakness and significant upper extremity weakness, reports chronic loss of sensation in bilateral lower extremities, reports significant neck stiffness at baseline Neuro: Reports mild headache, denies confusion, reports focal weakness, reports chronic numbness, denies vision changes Skin: Denies bruising, denies rash : Denies flank pain, denies dysuria, denies hematuria Exam - Constitutional Vitals: Temp Pulse Resp BP Pulse Ox 97.5 F L 87 13 108/70 96 12/30/17 09:00 12/30/17 11:00 12/30/17 11:00 12/30/17 11:00 12/30/17 11:00 - Additional findings Additional findings: General: Cooperative, pleasant, moderate to severe acute distress, alert and oriented 3, answers questions appropriately HEENT: Normocephalic, atraumatic, neck stiff and tender to palpation and movement, uncertain nuchal rigidity due to prior traumatic injuries, photophobia present, trachea midline, Conjunctiva pink, sclera anicteric, EOMI, PERRL, oral mucosa dry Respiratory: Diffuse, bilateral wheezes and rhonchi present R>L Cardiovascular: Tachycardia, regular rhythm, S1 and S2 present, no murmurs/rubs/ gallops/clicks appreciated GI/abdominal: Nondistended, nontender, soft, normal bowel sounds, no peritoneal signs Extremities: No calf tenderness, noncyanotic, no pedal edema appreciated, warm, lower extremity pulses palpable and symmetrical Neurological: Alert and oriented 3, cranial nerves II through XII grossly intact without deficits, finger to nose inaccurate in uncertain with right hand , unable to perform with left hand, flat surfacer jewel strength 3/5 in right hand, 2/5 in left hand, strength 0/5 in right lower extremity, 1/5 in left lower extremity, Babinski upturned in bilateral lower extremities Skin: Dry, intact, normal color Infectious Disease CN: Results - Labs CBC & Chem 7: 12/30/17 05:42 12/30/17 05:42 Cultures: Cultures 12/29/17 23:37 Legionella Antigen - Final Urine,Catheterized Streptococcus pneumoniae Antigen (M - Final 12/29/17 13:15 Gram Stain - Final Cerebral Spinal Fluid Serology: Serology 12/29/17 12/29/17 Range/Units 23:37 13:15 CSF Volume 4.0 mL CSF Appearance Clear (Clear) CSF Color Colorless (Colorless) CSF RBC < 0.002 (0.000 - 0.002) M/mcL CSF Tot Nucleated Cells 169 H* (0-5) TNC/mcL CSF Seg Neutrophils 85.0 % CSF Band Neutrophils % 11.0 % CSF Lymphocytes % 4.0 % CSF Glucose 55 (40-70) mg/dL CSF Xanth Comm Not Observed (Not Observe) CSF Total Protein > 200 H (15-45) mg/dL Chlamy pneumoniae PCR Not Detected (Not Detect) Adenovirus (PCR) Not Detected (Not Detect) B. pertussis DNA (PCR) Not Detected (Not Detect) B.parapertussis DNA PCR Not Detected (Not Detect) Coronavirus OC43 (PCR) Not Detected (Not Detect) Coronavirus HKU1 (PCR) Not Detected (Not Detect) Coronavirus 229E (PCR) Not Detected (Not Detect) Coronavirus NL63 (PCR) Not Detected (Not Detect) Human Metapneumovir PCR Not Detected (Not Detect) Influenza A (H1) PCR Not Detected (Not Detect) Influ A (H1N1/09) PCR Not Detected (Not Detect) Influenza A (H3) PCR Not Detected (Not Detect) Influenza A Untype (PCR) Not Detected (Not Detect) Influenza Type B (PCR) Not Detected (Not Detect) M.pneumoniae DNA (PCR) Not Detected (Not Detect) Parainfluenza 1 (PCR) Not Detected (Not Detect) Parainfluenza 2 (PCR) Not Detected (Not Detect) Parainfluenza 3 (PCR) Not Detected (Not Detect) Parainfluenza 4 (PCR) Not Detected (Not Detect) RSV (PCR) Not Detected (Not Detect) Entero/Rhino (PCR) Not Detected (Not Detect) - Imaging and Cardiology Other Images Additional comments: CT cervical spine CT head CT lumbar spine CT thoracic spine MRI lumbar spine Head CT Brain MRI Chest x-ray Thoracic spine MRI Consult Discharge Plan - Plan Referrals: NONE,PCP [Primary Care Provider] - - Attending Attestation I examined this patient and my medical decision-making was reviewed with the Resident Physician. I agree with the documented findings, disposition and treatment plan as described except to the extent set forth below. This is an addendum to original report dictated by resident physician. Please refer to residents note for full detail. Patient is a 52-year-old gentleman who has a past medical history significant for COPD, hepatitis C and history of cervical spine injury requiring surgeries of the cervical spine with residual weakness in the upper and lower extremities and chronic neck pain also has a pulse social history positive for tobacco use and IV drug use who denies any travel outside of the [place], denies any sick contacts, denies any incarceration was in the usual state of health until about a week or 2 prior to admission. Patient tells me that he started having cough and worsening headache and neck pain. Patient apparently has smokers cough but has been getting progressively worse. Patient states that no children or grandchildren visited him home. Patient apparently fell and was found at home on the floor for a few hours and couldnt get up. On presentation patient was febrile with a MAXIMUM TEMPERATURE of 104.2, tachycardic and tachypneic. Patient also had leukocytosis. The lumbar puncture was obtained and revealed pleocytosis, elevated proteins over 200 and glucose of 55. I received a phone call yesterday from the hospitalist on the case asking for recommendations. Currently patient appears sick and is laying in bed with severe headache 9 out of 10 and neck pain is 9 out of 10. Patient tells me his neck pain is usually 3- 4 out of 10. Patient also has photophobia and has significant rhonchi bilaterally lungs worse on the left. Patients abdomen is fairly benign. Skin exam is unremarkable. 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 Differential diagnosis on him is vast. Patient already had an LP with Gram stain and cultures are pending. Gram stain is negative for gram-negative diplococci. Patient also had Cryptococcus and urine legionella and pneumococcal antigen ordered. Rest infection panel has been negative. Discussed also with neurology. MRI noted. At this point we will check HSV, VZV PCR in the CSF. Well also do and AFB smear on the CSF. Well check VDRL and the CSF and continue current treatment with ceftriaxone and vancomycin and acyclovir. Well discuss with pharmacy to see if there are dosing acyclovir appropriately at 10 mg/kg every 8 hours. Maybe theyre using ideal body weight is the patient weighs 92 kg and his ideal body weight I think would be about 75-77 kg. Patient does not need isolation at this point..
[2017-12-30] MEDS: Gabapentin 400 MG CAPSULE PO SCH ×4 (11:18→19:56)
[2017-12-30] MEDS: hydrOXYzine pamoate 25 MG CAPSULE PO SCH ×3 (11:18→19:56)
[2017-12-30] MEDS: Acyclovir 750 MG in D5% in Water 250 ML IVPB SCH ×2 (11:25→18:18)
--- NOTE | 2017-12-30 14:32 | Electrocardiograph Report ---
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
--- NOTE | 2017-12-30 15:51 | Neurology Progress Note ---
Date of Encounter: 12/30/17 Time of Encounter: 07:35 Assessment and Plan (1) Meningeoencephalitis, bacterial Current Visit: Yes Status: Suspected CSF analysis seems to be consistent with meningeal encephalitis. Though possibility of bacterial but so far Gram stain has been negative considering significant neutrophil counts and significantly elevated white counts bacterial in the differential suggested to continue on broad-spectrum antibiotics along with acyclovir Follow ID recommendations. MRI of the brain reviewed and did not show any acute abnormality and particularly no evidence of any ischemia and no evidence of any abnormality in the temporal lobes (2) Weakness of both lower extremities Current Visit: No Status: Acute And also an history of weakness both lower extremities that been having for quite some time and gradually getting worse he was using a walker earlier but in the last week or so he has gotten significantly worse to the point that he been having difficulty with ambulation. Certainly peripheral disorder like GBS is in the differential but considering the CSF analysis is seems to be less likely despite possible that he could have both conditions at the same time or perhaps it may have triggered by the infection but at the same time with the decrease in sensation I would suggest checking his thoracic spine and lumbar spine did not show any evidence of caudina equina and he has a significant critical stenosis that would explain his weakness but at the same time other thoracic abnormalities could produce same symptoms in fact I do have to exclude any structural abnormalities in particularly any abscess as well as possibility of transverse myelitis likely in the thoracic area as he did not have much symptoms in the upper extremities will get an MRI of his thoracic spine in the meantime he will continue on his other medications as well as antibiotics as per ID recommendations. Also has a low vitamin B12 that has been replaced is also on time and suggested to continue on it as well as probably contributing to his weakness in the lower extremities Subjective Interval history: The patient seen as an follow-up from yesterday. Seems to be more awake and able to follow commands able to answer questions more appropriate less lethargic as he was yesterday. Patient remains on broad-spectrum antibiotics as well as on acyclovir started due to abnormal CSF profile. MRI of the lumbar spine did not show any acute abnormality except some degenerative changes. CT scan of the head was negative. This morning patient did have an episode of generalized weakness and not able to respond with generalized weakness and increasing weakness in the lower extremities. Stat CT scan of the head was negative. He has also had a MRI of the brain this morning. Continued to have weakness in both lower extremities right more than the left Objective - Constitutional Vitals: Temp Pulse Resp BP Pulse Ox 98.1 F 111 18 127/75 93 12/30/17 12:36 12/30/17 15:00 12/30/17 15:00 12/30/17 15:00 12/30/17 15:00 - Neurological Exam Sensorimotor examination: Present: intact, rigidity (There appears to be rigidity in his neck and he has slight extension while laying at rest.) Motor Examination: Present: other Motor examination - right side: 3/5: hip flexors, tibialis Anterior, quadriceps , toe extension (EHL), plantarflexion, 4/5: deltoids, biceps, triceps, wrist flexion, wrist extension, drain tiler Motor examination - left side: 3/5: hip flexors, drain tiler, quadriceps, tibialis Anterior, toe extension (EHL), plantarflexion, 4/5: deltoids, biceps, triceps, wrist flexion, wrist extension Sensation intact: Present: other (Decreased to pinprick in both lower extremities more on the right than on the left pubic tubercle to the deep pain) Reflexes: Biceps: 1+, Triceps: 1+, Brachioradialis: 1+, Patella: 1+, Achilles: 1 + Mental Status Examination: Present: awake, alert, oriented to person, follows commands appropriately, answers questions appropriately, opens eyes to voice, opens eyes to noxious stimulation, follows simple commands, localizes noxious stimulation Cranial nerve examination: Present: PERRL, EOMI, visual arnold intact, no facial asymmetry is present Results - Laboratory Findings CBC and BMP: 12/30/17 05:42 12/30/17 05:42 Abnormal lab findings: Abnormal lab results WBC 12.0 K/mcL (4.3-11.1) H 12/30/17 05:42 RBC 4.02 M/mcL (4.19-5.50) L 12/30/17 05:42 Hgb 11.1 g/dL (12.9-16.9) L D 12/30/17 05:42 Hct 33.3 % (37.5-50.1) L 12/30/17 05:42 MCV 82.8 fL (83.0-100.0) L 12/30/17 05:42 MCH 27.6 pg (28.0-33.3) L 12/30/17 05:42 Plt Count 138 K/mcL (140-400) L 12/30/17 05:42 Neutrophils # 10.7 K/mcL (1.6-8.9) H 12/30/17 05:42 Lymphocytes # 0.5 K/mcL (0.6-4.6) L 12/30/17 05:42 Toxic Vacuolation Present (Not Present) A 12/30/17 05:42 Platelet Estimate Decreased (Normal) L 12/30/17 05:42 ABG pO2 55 mmHg (85-104) L 12/29/17 21:49 ABG O2 Saturation 88 % (95-98) L 12/29/17 21:49 ABG Base Excess -3 mEq/L (-2 to 3) L 12/29/17 21:49 Sodium 135 mEq/L (136-145) L 12/30/17 05:42 Chloride 109 mEq/L (98-107) H 12/30/17 05:42 Carbon Dioxide 21 mEq/L (23-29) L 12/30/17 05:42 Glucose 109 mg/dL (70-105) H 12/30/17 05:42 POC Glucose 158 (58-89) H 12/29/17 21:17 Calcium 8.0 mg/dL (8.6-10.3) L 12/30/17 05:42 AST 64 Units/L (13-39) H 12/29/17 09:35 Creatine Kinase 821 Units/L (30-223) H 12/29/17 22:36 Myoglobin 194 ng/mL (28-72) H 12/29/17 13:51 Globulin 3.9 g/dL (2.4-3.5) H 12/29/17 09:35 Albumin/Globulin Ratio 0.9 (1.1-2.2) L 12/29/17 09:35 Prealbumin 3.4 mg/dL (17.0-34.0) L 12/29/17 22:31 Vitamin B12 207 pg/mL (250-1100) L 12/29/17 13:51 Urine Protein 30 mg/dL (Neg-Trace) H 12/29/17 11:30 Urine Ketones Trace mg/dL (Negative) H 12/29/17 11:30 Urine Nitrite Positive (Negative) A 12/29/17 11:30 Urine Bilirubin Small (Negative) H 12/29/17 11:30 Urine Microscopic WBC 3-5 per hpf (0-3) H 12/29/17 11:30 Ur Squamous Epith Cells Moderate per lpf (None-Few) H 12/29/17 11:30 Urine Bacteria Many per hpf (None-Few) H 12/29/17 11:30 Ur Culture Indicated? YES (NO) A 12/29/17 11:30 CSF Tot Nucleated Cells 169 TNC/mcL (0-5) H* 12/29/17 13:15 CSF Total Protein > 200 mg/dL (15-45) H 12/29/17 13:15 Consult Discharge Plan - Plan Referrals: NONE,PCP [Primary Care Provider] -
[2017-12-30] MEDS ORDERED: *HR* LORazepam 2 MG/ML VIAL IVP ONE (15:54)
[2017-12-30] MEDS ORDERED: Cyanocobalamin (B-12) 1,000 MCG/ML VIAL IM ONE (16:01)
--- NOTE | 2017-12-30 17:40 | Event Note ---
<Arlyn Silva - Last Filed: 12/30/17 17:37> Date of Encounter: 12/30/17 Time of Encounter: 17:37 MRI thoracic spine demonstrated an epidural hematoma that is 3mm without compressing the spinal cord. Neurology was notified and stated that heparin should be stopped. Spine surgeon was consulted and agreed to come see the patient. Consider transfer to [facility]. <Moshe Tee - Last Filed: 12/30/17 20:24> Date of Encounter: 12/30/17 Dr. Mejia was called immediately after MRI result was available. Discussed with the resident and I was available at the time Dr. Mejia called ICU and talked to Dr. Silva. I have talked to charge nurse and if this is complicated and needs to be transferred, then will arrange it for the patient.
--- NOTE | 2017-12-30 18:46 | Electrocardiograph Report ---
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
[2017-12-30] MEDS ORDERED: Acetaminophen IV 1,000 MG/100 ML INFUS..BTL IVPB ONE (20:09)
[2017-12-30 22:14] VITALS: BP 83/52
--- NOTE | 2017-12-30 23:12 | Discharge Summary ---
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 (4) COPD (chronic obstructive pulmonary disease) Priority: Secondary Status: Acute Qualifiers: COPD type: unspecified COPD Qualified Code(s): J44.9 - Chronic obstructive pulmonary disease, unspecified (5) UTI (urinary tract infection) Priority: Secondary Status: Acute Qualifiers: Urinary tract infection type: site unspecified Hematuria presence: without hematuria Qualified Code(s): N39.0 - Urinary tract infection, site not specified (6) History of cervical fracture Priority: Secondary Status: Chronic (7) DVT prophylaxis Priority: Secondary Status: Acute - Discharge Medications Home Medications: Albuterol Sulfate [Ventolin Hfa] 2 puff IH Q4-6H PRN 12/29/17 [History] Buspirone HCl [Buspar] 10 mg PO TID 12/29/17 [History] Gabapentin [Neurontin] 800 mg PO QID 12/29/17 [History] HydrOXYzine Pamoate [Vistaril] 50 mg PO TID 12/29/17 [History] Nortriptyline HCl 50 mg PO BID 12/29/17 [History] OLANZapine [Zyprexa] 20 mg PO DAILY 12/29/17 [History] Albuterol Sulfate [Albuterol Inhaler] 2 puff IH Q4H PRN inhaler 12/30/17 [Rx] Aspirin 81 mg PO DAILY tab.chew 12/30/17 [Rx] Budesonide/Formoterol 160/4.5 [Symbicort 160/4.5] 2 puff IH BIDR inhaler [Rx] Ketorolac [Toradol] 15 mg IVP Q6HR PRN vial 12/30/17 [Rx] Levalbuterol Neb [Xopenex Neb] 0.63 mg IH [id number] vial.neb 12/30/17 [Rx] Pantoprazole [Protonix] 40 mg IVP DAILY vial 12/30/17 [Rx] Allergies/Adverse Reactions: 3 Allergy/AdvReac Type Severity Reaction Status Date / Time No Known Allergies Allergy Verified 04/02/17 06:02 Labs on day of discharge: Labs from last 24 hours 12/30/17 12/30/17 12/30/17 05:42 05:42 05:42 WBC RBC Hgb Hct MCV MCH MCHC RDW Plt Count MPV Immature Gran % Seg Neutrophils % Lymphocytes % Monocytes % Eosinophils % Basophils % Neutrophils # Lymphocytes # Monocytes # Eosinophils # Basophils # Toxic Vacuolation Platelet Estimate PT 12.1 INR 1.1 Sodium 135 L Potassium 3.9 Chloride 109 H Carbon Dioxide 21 L BUN 19 Creatinine 0.75 Est GFR ( Amer) > 60 Est GFR (Non-Af Amer) > 60 BUN/Creatinine Ratio 25 Glucose 109 H POC Glucose Calculated Osmolality 283 Lactic Acid Calcium 8.0 L Magnesium Creatine Kinase Myoglobin Troponin I B-Natriuretic Peptide 76 Prealbumin Chlamy pneumoniae PCR Adenovirus (PCR) B. pertussis DNA (PCR) B.parapertussis DNA PCR Coronavirus OC43 (PCR) Coronavirus HKU1 (PCR) Coronavirus 229E (PCR) Coronavirus NL63 (PCR) Human Metapneumovir PCR Influenza A (H1) PCR Influ A (H1N1/09) PCR Influenza A (H3) PCR Influenza A Untype (PCR) Influenza Type B (PCR) M.pneumoniae DNA (PCR) Parainfluenza 1 (PCR) Parainfluenza 2 (PCR) Parainfluenza 3 (PCR) Parainfluenza 4 (PCR) RSV (PCR) Entero/Rhino (PCR) 12/30/17 12/30/17 12/30/17 05:42 05:42 05:41 WBC 12.0 H RBC 4.02 L Hgb 11.1 L D Hct 33.3 L MCV 82.8 L MCH 27.6 L MCHC 33.3 RDW 14.0 Plt Count 138 L MPV 9.6 Immature Gran % 0.7 Seg Neutrophils % 89.0 Lymphocytes % 4.5 Monocytes % 5.6 Eosinophils % 0.0 Basophils % 0.2 Neutrophils # 10.7 H Lymphocytes # 0.5 L Monocytes # 0.7 Eosinophils # 0.0 Basophils # 0.0 Toxic Vacuolation Present A Platelet Estimate Decreased L PT INR Sodium Potassium Chloride Carbon Dioxide BUN Creatinine Est GFR ( Amer) Est GFR (Non-Af Amer) BUN/Creatinine Ratio Glucose POC Glucose Calculated Osmolality Lactic Acid 0.9 Calcium Magnesium Creatine Kinase Myoglobin Troponin I < 0.03 B-Natriuretic Peptide Prealbumin Chlamy pneumoniae PCR Adenovirus (PCR) B. pertussis DNA (PCR) B.parapertussis DNA PCR Coronavirus OC43 (PCR) Coronavirus HKU1 (PCR) Coronavirus 229E (PCR) Coronavirus NL63 (PCR) Human Metapneumovir PCR Influenza A (H1) PCR Influ A (H1N1) PCR Influenza A (H3) PCR Influenza A Untype (PCR) Influenza Type B (PCR) M.pneumoniae DNA (PCR) Parainfluenza 1 (PCR) Parainfluenza 2 (PCR) Parainfluenza 3 (PCR) Parainfluenza 4 (PCR) RSV (PCR) Entero/Rhino (PCR) 12/29/17 12/29/17 12/29/17 23:37 22:36 22:36 WBC RBC Hgb Hct MCV MCH MCHC RDW Plt Count MPV Immature Gran % Seg Neutrophils % Lymphocytes % Monocytes % Eosinophils % Basophils % Neutrophils # Lymphocytes # Monocytes # Eosinophils # Basophils # Toxic Vacuolation Platelet Estimate PT INR Sodium Potassium Chloride Carbon Dioxide BUN Creatinine Est GFR ( Amer) Est GFR (Non-Af Amer) BUN/Creatinine Ratio Glucose POC Glucose Calculated Osmolality Lactic Acid 1.4 Calcium Magnesium 1.7 Creatine Kinase Myoglobin Troponin I B-Natriuretic Peptide Prealbumin Chlamy pneumoniae PCR Not Detected Adenovirus (PCR) Not Detected B. pertussis DNA (PCR) Not Detected B.parapertussis DNA PCR Not Detected Coronavirus OC43 (PCR) Not Detected Coronavirus HKU1 (PCR) Not Detected Coronavirus 229E (PCR) Not Detected Coronavirus NL63 (PCR) Not Detected Human Metapneumovir PCR Not Detected Influenza A (H1) PCR Not Detected Influ A (H1N1/) PCR Not Detected Influenza A (H3) PCR Not Detected Influenza A Untype (PCR) Not Detected Influenza Type B (PCR) Not Detected M.pneumoniae DNA (PCR) Not Detected Parainfluenza 1 (PCR) Not Detected Parainfluenza 2 (PCR) Not Detected Parainfluenza 3 (PCR) Not Detected Parainfluenza 4 (PCR) Not Detected RSV (PCR) Not Detected Entero/Rhino (PCR) Not Detected 12/29/17 12/29/17 12/29/17 22:36 22:31 21:17 WBC RBC Hgb Hct MCV MCH MCHC RDW Plt Count MPV Immature Gran % Seg Neutrophils % Lymphocytes % Monocytes % Eosinophils % Basophils % Neutrophils # Lymphocytes # Monocytes # Eosinophils # Basophils # Toxic Vacuolation Platelet Estimate PT INR Sodium Potassium Chloride Carbon Dioxide BUN Creatinine Est GFR ( Amer) Est GFR (Non-Af Amer) BUN/Creatinine Ratio Glucose POC Glucose 158 H Calculated Osmolality Lactic Acid Calcium Magnesium Creatine Kinase 821 H Myoglobin Troponin I B-Natriuretic Peptide Prealbumin 3.4 L Chlamy pneumoniae PCR Adenovirus (PCR) B. pertussis DNA (PCR) B.parapertussis DNA PCR Coronavirus OC43 (PCR) Coronavirus HKU1 (PCR) Coronavirus 229E (PCR) Coronavirus NL63 (PCR) Human Metapneumovir PCR Influenza A (H1) PCR Influ A (H1N1) PCR Influenza A (H3) PCR Influenza A Untype (PCR) Influenza Type B (PCR) M.pneumoniae DNA (PCR) Parainfluenza 1 (PCR) Parainfluenza 2 (PCR) Parainfluenza 3 (PCR) Parainfluenza 4 (PCR) RSV (PCR) Entero/Rhino (PCR) 12/29/17 13:51 WBC RBC Hgb Hct MCV MCH MCHC RDW Plt Count MPV Immature Gran % Seg Neutrophils % Lymphocytes % Monocytes % Eosinophils % Basophils % Neutrophils # Lymphocytes # Monocytes # Eosinophils # Basophils # Toxic Vacuolation Platelet Estimate PT INR Sodium Potassium Chloride Carbon Dioxide BUN Creatinine Est GFR ( Amer) Est GFR (Non-Af Amer) BUN/Creatinine Ratio Glucose POC Glucose Calculated Osmolality Lactic Acid Calcium Magnesium Creatine Kinase Myoglobin 194 H Troponin I B-Natriuretic Peptide Prealbumin Chlamy pneumoniae PCR Adenovirus (PCR) B. pertussis DNA (PCR) B.parapertussis DNA PCR Coronavirus OC43 (PCR) Coronavirus HKU1 (PCR) Coronavirus 229E (PCR) Coronavirus NL63 (PCR) Human Metapneumovir PCR Influenza A (H1) PCR Influ A (H1N1/) PCR Influenza A (H3) PCR Influenza A Untype (PCR) Influenza Type B (PCR) M.pneumoniae DNA (PCR) Parainfluenza 1 (PCR) Parainfluenza 2 (PCR) Parainfluenza 3 (PCR) Parainfluenza 4 (PCR) RSV (PCR) Entero/Rhino (PCR) - Impressions ITS Impressions Lumbar Spine MRI 12/29/17 13:55 IMPRESSION: 1. No acute abnormality identified of the lumbar spine. 2. Degenerative changes contribute to mild spinal canal stenosis at L2-L3 and L3-L4. 3. Degenerative changes contribute to neural foraminal narrowing as above. D/ / Jerome Monzon MD / Jerome Monzon MD Interpreting Provider: Jerome Monzon MD Head CT 12/30/17 02:50 IMPRESSION: No acute intracranial abnormality or mass. Stable exam. If there is ongoing concern for stroke, recommend further evaluation with MRI. Stable mild white matter disease which likely reflects sequela of chronic microvascular ischemia. Paranasal sinusitis. D/ / Greg Stevenson / Greg Stevenson Interpreting Provider: Greg Stevenson Brain MRI 12/30/17 04:16 IMPRESSION: Moderate chronic small vessel ischemic disease within the periventricular white matter with associated mild cerebral atrophy. No evidence of acute intracranial abnormality or MRI evidence for encephalitis. Mild paranasal sinus disease. D/ / 12/30/2017 11:03:40 Aleksandar Parada MD / roseann Interpreting Provider: Aleksandar Parada MD Chest X-Ray 12/30/17 06:47 IMPRESSION: Right IJ central line appears in satisfactory position without evidence of pneumothorax. Bibasilar airspace disease could be related to atelectasis and/or infiltrate. Recommend follow-up to ensure resolution. D/ / Froilan Dias MD / Froilan Dias MD Interpreting Provider: Froilan Dias MD Thoracic Spine MRI 12/30/17 13:44 IMPRESSION: Limited by motion artifact. Question of epidural hematoma along the posterior aspect of the mid thoracic spinal canal measuring up to 3 mm in maximal thickness, without contributing to spinal canal narrowing. Follow-up imaging is recommended. Mild degenerative disc disease. Spinal canal narrowing, mild at T11-12. No foraminal narrowing. D/ / Albin Bray MD / Albin Bray MD Interpreting Provider: Albin Bray MD Chest X-Ray 12/30/17 15:01 IMPRESSION: Some improved aeration at the lung bases bilaterally, with right greater than left infiltrates. Improved vascular congestion. D/ / Ismael Yuen MD / Ismael Yuen MD Interpreting Provider: Ismael Yuen MD Date of admission: 12/29/17 13:10 Primary care physician: PCP NONE Consults: 12/29/17 13:57 Consult to Neurology [CONS] Routine Consulting Provider: Neurology [facility] Reason for Consult: Pt states he cannot feel his legs cannot feel legs Time Notified: 14:00 Call Completed: No 12/29/17 18:04 Consult to Infectious Diseases [CONS] Routine Consulting Provider: Infectious [facility] Reason for Consult: concern for meningitis Time Notified: 17:30 Call Completed: Yes 12/30/17 04:18 Consult to Pulmonology [CONS] Routine Consulting Provider: [facility]m [facility] Reason for Consult: encephalitis Call Completed: No 12/30/17 17:29 Consult to Orthopedic Surgery [CONS] Routine Consulting Provider: Orthopedics [facility] Reason for Consult: epidural hematoma not compressing the spinal cord Call Completed: Yes Discharging clinician: Inocencio Camara Anticipated date of discharge: 12/30/17 - Patient Status Disposition: Transfer Critical Access Hosp Condition: Serious Functional capacity at discharge: bed bound Overall status at discharge: patient is not back to baseline - Discharge Instructions Follow Up With: NONE,PCP [Primary Care Provider] - - Diet and Activity Activity: other (as directed by physicians at [facility]) Diet: other (NPO) - Hospital Course Hospital course: Mr. Carrasco is a 52 year old male with history of COPD and cervical fracture status post surgical repair who presents to the ED yesterday with complaints of headache and hip pain following a mechanical fall approximately 3 days prior. The patient also complained of ascending muscle weakness and loss of sensation in his legs which should been occurring over the past few days. he says that this has never happened before. In the ED he did not have any of these symptoms present and had full muscle strength in his lower extremities. At that time he also had a lumbar puncture which demonstrated an increasein protein and WBCs but did not grow anything on culture thus far. While in the ED , the Patient developed severe fever of 104, became tachycardic, tachypneic, and hypotensive. At this time it was noted that he became very somnolent, and appeared encephalopathic. He did have CT of the head and the entirety of his axial spine, which did not indicate any acute process. The patient was given a total of 3L bolus normal saline, and was placed on maintenance fluids, which appeared to maintain his blood pressure at an acceptable level. At the recommendation of ID and Neuro, the patient was placed on Ampicillin, ceftriaxone, vancomycin, and acyclovir. He was admitted to the ICU with presumptive diagnosis of meningeoencephalitis, sepsis, and hypoxic respiratory failure. Later in the night, the patient developed worsening hypoxia, significant rales and rhonchi in the right lung suspicious for pulmonary edema and possible pneumonia. The patient's fluids were stopped, and he became hypotensive without fluids and required addition of dopamine for hemodynamic support. A central line was placed. Further, the patient again complained of loss of motor and sensory function in his lower extremeties. Prompt exam demostrated total paresis of lower extremities from the level of the pelvis down , with mildly positive babinski b/l, and lack of rectal tone. Additionally, the patient developed weakness in his distal upper extremities b/l, and could not form a community administrator. A stat head CT demonstrated no acute changes, and so an MRI was ordered which also demonstrated no acute findings. MRI of the T-spine showed small 3mm spinal hematoma on the posterior wall of the spinal canal without narrowing. The patient was started on IVIG due to his symptoms. Dr. Nunez was called for consultation and expressed that he would see the patient, however he specified later that he did not believe this was a surgical emergency and did not intend to see the patient until the following day. At this time, transfer to [facility] was initiated for prompt neurosurgical evaluation. I discussed the case with Dr. Mckeon, neurosurgeon, who agreed to see this patient promptly but requested the patient be admitted to medicine service. The patient was accepted to the MICU at [facility] by Dr. Dominic Reinoso. - Time Spent with Patient Total time spent providing and/or coordinating discharge services: Greater than 30 minutes Physical Examination Vital Signs: Vital Signs, Last 4 Hours Temp Pulse Resp BP Pulse Ox 12/30/17 22:00 114 27 83/52 98 12/30/17 21:34 15 85/64 93 12/30/17 21:00 114 14 86/52 92 12/30/17 20:33 117 12/30/17 20:26 101.6 F H 12/30/17 20:10 117 14 98/59 95 12/30/17 19:50 117 12/30/17 19:45 113 14 99/56 95 Gen: Vitals noted. Patient is mildly to moderately distressed at time of exam, patient appears anxious. AAOx3 HEENT: PERRL/EOMI, oropharynx clear, Normocephalic, atraumatic Neck: Supple. No adenopathy. Cardiac: RRR but rapid, no murmur, +S1/S2 Pulmonary: B/L wheezes L>R with worsening rhonchi throughout and developing coarse rales bibasilarly Abdomen: soft, nontender, BS noted, no guarding Back: Nontender throughout. Extremities: no BLE edema, nontender calf, no cyanosis or clubbing Neuro: A&Ox3 but confused and encephalopathic. CN 2-12 grossly intact. Motor: LUE 3/5 with worsened strength distal in the hands RUE 3/5 with worsened strength distal in the hands but mildly improved community administrator compared to L LLE 3/5, no movement RLE 4/5, no movement Sensation: full sensation to light, dull, sharp touch in b/l upper and lower extremeties Reflexes: 2/4 in b/l LE DTRs at patellar and achilles. 2/4 in UEs at brachioradialis <Moshe Tee M - Last Filed: 12/31/17 06:15> Date of Encounter: 12/31/17 Labs on day of discharge: Labs from last 24 hours 12/30/17 12/30/17 12/30/17 11:38 05:42 05:42 Immature Gran % 0.7 Seg Neutrophils % 89.0 Lymphocytes % 4.5 Monocytes % 5.6 Eosinophils % 0.0 Basophils % 0.2 Neutrophils # 10.7 H Lymphocytes # 0.5 L Monocytes # 0.7 Eosinophils # 0.0 Basophils # 0.0 Toxic Vacuolation Present A Platelet Estimate Decreased L POC Glucose 109 H Myoglobin Troponin I B-Natriuretic Peptide 76 12/30/17 12/30/17 12/29/17 05:42 02:48 13:51 Immature Gran % Seg Neutrophils % Lymphocytes % Monocytes % Eosinophils % Basophils % Neutrophils # Lymphocytes # Monocytes # Eosinophils # Basophils # Toxic Vacuolation Platelet Estimate POC Glucose 99 H Myoglobin 194 H Troponin I < 0.03 B-Natriuretic Peptide - Impressions ITS Impressions Lumbar Spine MRI 12/29/17 13:55 IMPRESSION: 1. No acute abnormality identified of the lumbar spine. 2. Degenerative changes contribute to mild spinal canal stenosis at L2-L3 and L3-L4. 3. Degenerative changes contribute to neural foraminal narrowing as above. D/ / Jerome Monzon MD / Jerome Monzon MD Interpreting Provider: Jerome Monzon MD Head CT 12/30/17 02:50 IMPRESSION: No acute intracranial abnormality or mass. Stable exam. If there is ongoing concern for stroke, recommend further evaluation with MRI. Stable mild white matter disease which likely reflects sequela of chronic microvascular ischemia. Paranasal sinusitis. D/ / Greg Stevenson / Greg Stevenson Interpreting Provider: Greg Stevenson Brain MRI 12/30/17 04:16 IMPRESSION: Moderate chronic small vessel ischemic disease within the periventricular white matter with associated mild cerebral atrophy. No evidence of acute intracranial abnormality or MRI evidence for encephalitis. Mild paranasal sinus disease. D/ / 12/30/2017 11:03:40 Aleksandar Parada MD / roseann Interpreting Provider: Aleksandar Parada MD Chest X-Ray 12/30/17 06:47 IMPRESSION: Right IJ central line appears in satisfactory position without evidence of pneumothorax. Bibasilar airspace disease could be related to atelectasis and/or infiltrate. Recommend follow-up to ensure resolution. D/ / Froilan Dias MD / Froilan Dias MD Interpreting Provider: Froilan Dias MD Thoracic Spine MRI 12/30/17 13:44 IMPRESSION: Limited by motion artifact. Question of epidural hematoma along the posterior aspect of the mid thoracic spinal canal measuring up to 3 mm in maximal thickness, without contributing to spinal canal narrowing. Follow-up imaging is recommended. Mild degenerative disc disease. Spinal canal narrowing, mild at T11-12. No foraminal narrowing. D/ / Albin Bray MD / Albin Bray MD Interpreting Provider: Albin Bray MD Chest X-Ray 12/30/17 15:01 IMPRESSION: Some improved aeration at the lung bases bilaterally, with right greater than left infiltrates. Improved vascular congestion. D/ / Ismael Yuen MD / Ismael Yuen MD Interpreting Provider: Ismael Yuen MD Date of admission: 12/29/17 13:10 Primary care physician: PCP NONE Consults: 12/29/17 13:57 Consult to Neurology [CONS] Routine Consulting Provider: [facility] Reason for Consult: Pt states he cannot feel his legs cannot feel legs Time Notified: 14:00 Call Completed: No 12/29/17 18:04 Consult to Infectious Diseases [CONS] Routine Consulting Provider: Infectious Disease [place] Reason for Consult: concern for meningitis Time Notified: 17:30 Call Completed: Yes 12/30/17 04:18 Consult to Pulmonology [CONS] Routine Consulting Provider: [facility]m [facility] Reason for Consult: encephalitis Call Completed: No - Hospital Course Hospital course: Mr. Carrasco is a 52 year old male - Time Spent with Patient Total time spent providing and/or coordinating discharge services: - Attending Attestation I examined this patient and my medical decision-making was reviewed with the Resident Physician. I agree with the documented findings, disposition and treatment plan as described except to the extent set forth below. Patient condition was deteriorating from the admission and he had no neurological deficits mainly in his lower extremities which was asymmetrical. I have discussed with the neurologist as well as the infectious disease regarding his management. His respiratory status was carefully monitored with measuring vital capacity and negative inspiratory force and patient was tolerating BiPAP. Patient had multiple images and most critical on Ivers[place] MRI of the spine with evidence of hematoma. Dr. Mejia was consulted to evaluate the patient and his assessment was to evaluate the patient next day because it was not emergency in his opinion for that reason patient was transferred to [facility] because he remained to have neurological deficits and he was accepted there subsequently he was transferred to after. I had discussed with the resident regarding the transfer and urgency for intervention due to his presentation. Neurologist has agreed with the transfer as well. Time arranging transfer was greater than 1 hour.
[2017-12-30] MEDS ORDERED: Aminoglycoside Consult 1 EACH MC ONE (23:41)
--- NOTE | 2017-12-31 | Event Note ---
<Inocencio Camara - Last Filed: 12/30/17 23:57> Date of Encounter: 12/30/17 Time of Encounter: 21:00 The patient continues to be encephalopathic. The patient had not yet been evaluated by Dr. Nunez, so I called and spoke with him. He expressed that based on all tests and imaging, as well as his understanding of the patient's clinical status at this time, he has no indication that the patient requires emergent surgical intervention at this time and that he will wait until the morning to see and evaluate the patient. At this time, I spoke with Dr. Tee who agreed that transfer to another hospital for prompt neurosurgical evaluation is appropriate. I spoke with the patient and his daughter and they agreed to the plan. Transfer to [facility] was arranged immediately. <Moshe Tee - Last Filed: 12/31/17 06:17> Date of Encounter: 12/31/17 I examined this patient and my medical decision-making was reviewed with the Resident Physician. I agree with the documented findings, disposition and treatment plan as described except to the extent set forth below. Dr. Camara and I we discussed this case and in my opinion he needs urgent intervention and patient will be transferred to [facility] for neurosurgical evaluation.
[2017-12-31] MEDS ORDERED: Aspirin 81 MG TAB.CHEW PO SCH (09:00)
[2017-12-31 15:19] LABS: HSV 2 Glycoprotein G IgG CSF 0.09 IV (<=0.89)
[2017-12-31 17:12] LABS: Amphetamines NEGATIVE ng/mL (Cutoff 30); Barbiturates NEGATIVE ng/mL (Cutoff 75); Benzodiazepines NEGATIVE ng/mL (Cutoff 75); Cocaine NEGATIVE ng/mL (Cutoff 30); Methadone NEGATIVE ng/mL (Cutoff 40); Opiates NEGATIVE ng/mL (Cutoff 30); Phencyclidine NEGATIVE ng/mL (Cutoff 15)
[2018-01-01 09:51] LABS: Methamphetamines POSITIVE ng/mL (Cutoff 30)
[2018-01-01 09:58] LABS: Mycoplasma pneumoniae IgG 0.52 U/L (<=0.09)
[2018-01-02 18:00] LABS: HSV Source CSF
[2018-01-03 07:14] LABS: HSV 1 Glycoprotein G IgG CSF 6.43 IV (<=0.89)
[2018-01-03 13:50] LABS: Norbuprenorphine 2.7 ng/mL
[2018-01-03 15:03] LABS: Methylenedioxyamphetamine <20 ng/mL; Methylenedioxymethamphetamine <20 ng/mL
[2018-01-05 07:17] LABS: Buprenorphine <1.0 ng/mL; Methamphetamine Confirmation 48 ng/mL; Methylenedioxyethylamphetamine <20 ng/mL
== END 2017-12-30 23:42 | disposition critical access hospital (66) ==
LOC: EMEROO 09:04 → 2SOUTHHOLD 09:04 → ICNU 21:29
PROVIDERS: ADMIT Student in an Organized Health Care Education/Training Program; ATTEND Internal Medicine

== ENCOUNTER 2018-06-30 21:38 | Observation (INO) ==
[2018-06-30] MEDS ORDERED: 0.9 % Sodium Chloride 1,000 ML IVC ONE (21:58)
--- NOTE | 2018-06-30 22:02 | Emergency Department Note ---
Disposition Clinical Impression: Pressure ulcer of sacral region, stage 4 Fever Qualifiers: Fever type: due to other condition Qualified Code(s): R50.81 - Fever presenting with conditions classified elsewhere Sepsis Qualifiers: Sepsis type: sepsis due to unspecified organism Qualified Code(s): A41.9 - Sepsis, unspecified organism Disposition: Admitted As Inpatient Condition: Good Instructions: Fever in Adults (ED), Sepsis (GEN) Forms: ED Satisfaction Letter, Work/School Release Time of Disposition: 00:52 Fever HPI - General Chief Complaint: ED General Medical Stated Complaint: rule out sepsis Time Seen by Provider: 06/30/18 21:52 Source: patient, EMS Limitations: no limitations Nursing Notes Reviewed: Yes Vital Signs Reviewed: Yes - History of Present Illness HPI Narrative: This is a 52-year-old male with a history of 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 He also reports nausea. He denies shortness of breath. He denies vomiting or diarrhea. - Related Data Home Medications Medication Instructions Recorded Confirmed Albuterol Sulfate [Ventolin Hfa] 2 puff IH Q4-6H PRN 12/29/17 12/29/17 Buspirone HCl [Buspar] 10 mg PO TID 12/29/17 12/29/17 Gabapentin [Neurontin] 800 mg PO QID 12/29/17 12/29/17 HydrOXYzine Pamoate [Vistaril] 50 mg PO TID 12/29/17 12/29/17 Nortriptyline HCl 50 mg PO BID 12/29/17 12/29/17 OLANZapine [Zyprexa] 20 mg PO DAILY 12/29/17 12/29/17 Previous Rx's Medication Instructions Recorded Albuterol Sulfate [Albuterol 2 puff IH Q4H PRN inhaler 12/30/17 Inhaler] Aspirin 81 mg PO DAILY tab.chew 12/30/17 Budesonide/Formoterol 160/4.5 2 puff IH BIDR inhaler 12/30/17 [Symbicort 160/4.5] Ketorolac [Toradol] 15 mg IVP Q6HR PRN vial 12/30/17 Levalbuterol Neb [Xopenex Neb] 0.63 mg IH [id number] vial.neb 12/30/17 Pantoprazole [Protonix] 40 mg IVP DAILY vial 12/30/17 Allergies Allergy/AdvReac Type Severity Reaction Status Date / Time No Known Allergies Allergy Verified 04/02/17 06:02 All systems ED: reviewed and negative except as stated. Constitutional: Reports: fever Gastrointestinal: Reports: nausea Fever PMH - Past Medical History Medical history: Reports: COPD, GERD, hepatitis, other Surgical history: Reports: non-contributory Psychiatric history: Reports: bipolar, schizophrenia - Social History Smoking Status: Current every day smoker Alcohol use: Reports: none Drug use: Reports: none Physical Exam - General Limitations: no limitations General appearance: alert - Head Head exam: atraumatic, normocephalic, normal inspection - Neck Neck exam: Present: normal inspection, full ROM, trachea midline - Chest Chest inspection: Present: normal inspection, symmetric chest wall rise - Respiratory Respiratory exam: Present: normal lung sounds bilaterally - Cardiovascular Cardiovascular exam: Present: tachycardia, normal heart sounds, systolic murmur - Abdominal Exam Abdominal exam: Present: soft, Non-Tender - Extremities Exam Extremities exam: Present: normal inspection, normal capillary refill. Absent: tenderness, pedal edema - Neurological Exam Neurological exam: Present: alert, oriented X3 - Psychiatric Psychiatric exam: Present: normal affect, normal mood - Skin Skin exam: Present: warm, dry, other (There is an approximately 10 cm x 14 cm sacral pressure ulcer that is certainly stage IV plus.) Course Course Narrative: This is a 52-year-old male with sacral pressure ulcers and symptoms concerning for serious infection. Vancomycin and then Zosyn were given for antimicrobial coverage IV fluid was given Vital Signs Temperature 99.4 F 06/30/18 21:43 Pulse Rate 121 06/30/18 21:43 Respiratory Rate 19 06/30/18 21:43 Blood Pressure 108/68 06/30/18 21:43 O2 Sat by Pulse Oximetry 98 06/30/18 21:43 Temperature 99.4 F 06/30/18 21:43 Pulse Rate 102 06/30/18 23:33 Respiratory Rate 16 06/30/18 23:33 Blood Pressure 100/57 06/30/18 23:33 O2 Sat by Pulse Oximetry 98 06/30/18 23:33 Oxygen Delivery Oxygen Delivery Room Air Fever - Lab Data Lab results reviewed: Yes I reviewed the patient's lab results. Lab results narrative: CBC shows grossly doses of 12.9 with anemia at 10.4 and 32.6 CMP was unremarkable UA showed no bacteria but a large number of white cells and moderate leukocyte esterase Result diagrams: 06/30/18 22:01 06/30/18 22:01 Lab Results 06/30/18 06/30/18 06/30/18 Range/Units 22:01 22:01 22:01 WBC 12.9 H (4.3-11.1) K/mcL RBC 3.83 L (4.19-5.50) M/mcL Hgb 10.4 L (12.9-16.9) g/dL Hct 32.6 L (37.5-50.1) % MCV 85.1 (83.0-100.0) fL MCH 27.2 L (28.0-33.3) pg MCHC 31.9 (31.6-35.5) g/dL RDW 17.0 H (11.5-14.5) % Plt Count 385 (140-400) K/mcL MPV 8.7 L (9.4-12.4) fL Immature Gran % 0.5 (0-4) % Seg Neutrophils % 66.3 % Lymphocytes % 22.0 % Monocytes % 8.4 % Eosinophils % 2.6 % Basophils % 0.2 % Neutrophils # 8.5 (1.6-8.9) K/mcL Lymphocytes # 2.8 (0.6-4.6) K/mcL Monocytes # 1.1 (0.0-1.3) K/mcL Eosinophils # 0.3 (0.0-0.6) K/mcL Basophils # 0.0 (0.0-0.2) K/mcL Sodium 131 L (136-145) mEq/L Potassium 4.2 (3.5-5.1) mEq/L Chloride 100 (98-107) mEq/L Carbon Dioxide 23 (23-29) mEq/L BUN 13 (6-20) mg/dL Creatinine 0.56 L (0.70-1.30) mg/dL Est GFR ( Amer) > 60 (> 60) Est GFR (Non-Af Amer) > 60 (> 60) BUN/Creatinine Ratio 23 (6-26) Glucose 112 H (70-105) mg/dL Calculated Osmolality 273 L (280-300) Lactic Acid 1.4 (0.5-2.2) mmol/L Calcium 9.0 (8.6-10.3) mg/dL Phosphorus 3.5 (2.7-4.5) mg/dL Magnesium 1.6 (1.6-2.6) mg/dL Total Bilirubin 0.4 (0.3-1.0) mg/dL Direct Bilirubin 0.1 (0.0-0.2) mg/dL Indirect Bilirubin 0.3 (0.0-1.2) mg/dL AST 17 (13-39) Units/L ALT 9 (7-52) Units/L Alkaline Phosphatase 54 (34-104) Units/L Troponin I < 0.03 (< 0.04) ng/mL Serum Total Protein 6.9 (6.4-8.9) g/dL Albumin 3.1 L (3.5-5.7) g/dL Globulin 3.8 H (2.4-3.5) g/dL Albumin/Globulin Ratio 0.8 L (1.1-2.2) Urine Color (Yellow) Urine Clarity (Clear) Urine pH (5.0-8.0) pH Units Ur Specific [place] (1.010-1.025) Urine Protein (Neg-Trace) mg/dL Urine Glucose (UA) (Normal) mg/dL Urine Ketones (Negative) mg/dL Urine Blood (Negative) Urine Nitrite (Negative) Urine Bilirubin (Negative) Urine Urobilinogen (Normal) mg/dL Ur Leukocyte Esterase (Negative) Urine Microscopic RBC (0-3) per hpf Urine Microscopic WBC (0-3) per hpf Ur Squamous Epith Cells (None-Few) per lpf Urine Bacteria (None-Few) per hpf Hyaline Casts (None-Few) per lpf Urine Mucus (Few) Ur Culture Indicated? (NO) 06/30/18 Range/Units 22:09 WBC (4.3-11.1) K/mcL RBC (4.19-5.50) M/mcL Hgb (12.9-16.9) g/dL Hct (37.5-50.1) % MCV (83.0-100.0) fL MCH (28.0-33.3) pg MCHC (31.6-35.5) g/dL RDW (11.5-14.5) % Plt Count (140-400) K/mcL MPV (9.4-12.4) fL Immature Gran % (0-4) % Seg Neutrophils % % Lymphocytes % % Monocytes % % Eosinophils % % Basophils % % Neutrophils # (1.6-8.9) K/mcL Lymphocytes # (0.6-4.6) K/mcL Monocytes # (0.0-1.3) K/mcL Eosinophils # (0.0-0.6) K/mcL Basophils # (0.0-0.2) K/mcL Sodium (136-145) mEq/L Potassium (3.5-5.1) mEq/L Chloride (98-107) mEq/L Carbon Dioxide (23-29) mEq/L BUN (6-20) mg/dL Creatinine (0.70-1.30) mg/dL Est GFR ( Amer) (> 60) Est GFR (Non-Af Amer) (> 60) BUN/Creatinine Ratio (6-26) Glucose (70-105) mg/dL Calculated Osmolality (280-300) Lactic Acid (0.5-2.2) mmol/L Calcium (8.6-10.3) mg/dL Phosphorus (2.7-4.5) mg/dL Magnesium (1.6-2.6) mg/dL Total Bilirubin (0.3-1.0) mg/dL Direct Bilirubin (0.0-0.2) mg/dL Indirect Bilirubin (0.0-1.2) mg/dL AST (13-39) Units/L ALT (7-52) Units/L Alkaline Phosphatase (34-104) Units/L Troponin I (< 0.04) ng/mL Serum Total Protein (6.4-8.9) g/dL Albumin (3.5-5.7) g/dL Globulin (2.4-3.5) g/dL Albumin/Globulin Ratio (1.1-2.2) Urine Color Red A (Yellow) Urine Clarity Turbid A (Clear) Urine pH 5.5 (5.0-8.0) pH Units Ur Specific [place] 1.026 H (1.010-1.025) Urine Protein >=300 H (Neg-Trace) mg/dL Urine Glucose (UA) 100 H (Normal) mg/dL Urine Ketones 15 H (Negative) mg/dL Urine Blood Large H (Negative) Urine Nitrite Positive A (Negative) Urine Bilirubin Moderate H (Negative) Urine Urobilinogen Normal (Normal) mg/dL Ur Leukocyte Esterase Moderate H (Negative) Urine Microscopic RBC TNTC H (0-3) per hpf Urine Microscopic WBC TNTC H (0-3) per hpf Ur Squamous Epith Cells Many H (None-Few) per lpf Urine Bacteria None Seen (None-Few) per hpf Hyaline Casts None Seen (None-Few) per lpf Urine Mucus Many H (Few) Ur Culture Indicated? NO. A (NO) - EKG Data EKG attestation: Yes I reviewed and interpreted this EKG. EKG results narrative: EKG shows sinus tachycardia, 119 bpm, normal intervals, normal axis, normal ST and T waves
[2018-06-30 22:15] LABS: Basophils % 0.2 %; Eosinophils # 0.3 K/mcL (0.0-0.6); Eosinophils % 2.6 %; Hematocrit 32.6 % (37.5-50.1); Hemoglobin 10.4 g/dL (12.9-16.9); Immature Granulocytes % 0.5 % (0-4); Lymphocytes # 2.8 K/mcL (0.6-4.6); Mean Corpuscular HGB Conc 31.9 g/dL (31.6-35.5); Mean Corpuscular Hemoglobin 27.2 pg (28.0-33.3); Mean Corpuscular Volume 85.1 fL (83.0-100.0); Mean Platelet Volume 8.7 fL (9.4-12.4); Monocytes # 1.1 K/mcL (0.0-1.3); Monocytes % 8.4 %; Neutrophils # 8.5 K/mcL (1.6-8.9); Platelet Count 385 K/mcL (140-400); Red Blood Count 3.83 M/mcL (4.19-5.50); Segmented Neutrophils % 66.3 %
[2018-06-30 22:20] LABS: Bilirubin,Urine Moderate (Negative); Blood,Urine Large (Negative); Clarity,Urine Turbid (Clear); Color,Urine Red (Yellow); Glucose,Urine (UA) 100 mg/dL (Normal); Ketones,Urine 15 mg/dL (Negative); Leukocyte Esterase,Urine Moderate (Negative); Nitrite,Urine Positive (Negative); PH,Urine 5.5 pH Units (5.0-8.0); Protein,Urine >=300 mg/dL (Neg-Trace); Specific Gravity,Urine 1.026 (1.010-1.025); Urobilinogen,Urine Normal (Normal)
[2018-06-30 22:22] LABS: Bacteria,Urine None Seen per hpf (None-Few); RBC,Urine TNTC per hpf (0-3); Squamous Epithelial Cell,Urine Many per lpf (None-Few); WBC,Urine TNTC per hpf (0-3)
[2018-06-30 22:37] LABS: Troponin I < 0.03 ng/mL (< 0.04)
[2018-06-30 22:38] LABS: Alanine Aminotransferase 9 Units/L (7-52); Albumin 3.1 g/dL (3.5-5.7); Albumin/Globulin Ratio 0.8 (1.1-2.2); Alkaline Phosphatase 54 Units/L (34-104); Aspartate Amino Transferase 17 Units/L (13-39); BUN/Creatinine Ratio 23 (6-26); Bilirubin,Direct 0.1 mg/dL (0.0-0.2); Bilirubin,Indirect 0.3 mg/dL (0.0-1.2); Bilirubin,Total 0.4 mg/dL (0.3-1.0); Blood Urea Nitrogen 13 mg/dL (6-20); Carbon Dioxide 23 mEq/L (23-29); Chloride 100 mEq/L (98-107); Globulin 3.8 g/dL (2.4-3.5); Glucose 112 mg/dL (70-105); Magnesium 1.6 mg/dL (1.6-2.6); Osmolality,Calculated 273 (280-300); Phosphorous 3.5 mg/dL (2.7-4.5); Potassium 4.2 mEq/L (3.5-5.1); Sodium 131 mEq/L (136-145); Total Protein 6.9 g/dL (6.4-8.9); eGFR For Non-African Americans > 60 (> 60)
[2018-06-30 22:44] LABS: Hyaline Casts,Urine None Seen per lpf (None-Few); Mucus,Urine Many (Few)
[2018-07-01] MEDS ORDERED: Piperacillin/Tazobactam 3.375 GM in 0.9 % Sodium Chloride Mini Bag 100 ML IVPB ONE (00:39)
[2018-07-01] MEDS: 0.9 % Sodium Chloride 1,000 ML IVC SCH ×5 (00:53→21:45)
[2018-07-01] MEDS ORDERED: Aminoglycoside Consult 1 EACH MC ONE (01:03)
[2018-07-01] MEDS ORDERED: Gabapentin 300 MG CAPSULE PO ONE (01:12)
[2018-07-01] MEDS ORDERED: *HR* FentaNYL (PF) 100 MCG/2 ML VIAL IVP ONE (01:12)
[2018-07-01] MEDS ORDERED: Acetaminophen 325 MG TABLET PO PRN (02:23)
[2018-07-01] MEDS ORDERED: Naloxone 0.4 MG/ML INJ IVP PRN (02:23)
[2018-07-01] MEDS ORDERED: *HR* HYDROcodone/Acet 5/325 mg TABLET PO PRN (02:23)
[2018-07-01] MEDS ORDERED: Isovue-370 500 ML INFUS..BTL IV ONE (02:45)
--- NOTE | 2018-07-01 02:50 | Internal Med History&Physical ---
<LynneChiraggiselbeena - Last Filed: 07/01/18 03:11> Date of Encounter: 07/01/18 Internal Medicine - H&P: HPI History of present illness: Mr. Carrasco is a 52 year old male Internal Medicine - H&P: Meds Albuterol Sulfate [Ventolin Hfa] 2 puff IH Q4-6H PRN 12/29/17 [History] Buspirone HCl [Buspar] 10 mg PO TID 12/29/17 [History] Gabapentin [Neurontin] 800 mg PO QID 12/29/17 [History] HydrOXYzine Pamoate [Vistaril] 50 mg PO TID 12/29/17 [History] Nortriptyline HCl 50 mg PO BID 12/29/17 [History] OLANZapine [Zyprexa] 20 mg PO DAILY 12/29/17 [History] Albuterol Sulfate [Albuterol Inhaler] 2 puff IH Q4H PRN inhaler 12/30/17 [Rx] Aspirin 81 mg PO DAILY tab.chew 12/30/17 [Rx] Budesonide/Formoterol 160/4.5 [Symbicort 160/4.5] 2 puff IH BIDR inhaler [Rx] Ketorolac [Toradol] 15 mg IVP Q6HR PRN vial 12/30/17 [Rx] Levalbuterol Neb [Xopenex Neb] 0.63 mg IH [id number] vial.neb 12/30/17 [Rx] Pantoprazole [Protonix] 40 mg IVP DAILY vial 12/30/17 [Rx] 3 Allergy/AdvReac Type Severity Reaction Status Date / Time No Known Allergies Allergy Verified 04/02/17 06:02 All Systems PM: A 10-system review of systems was performed and is negative for pertinent findings except as documented above in the HPI. - Constitutional Vitals: Temp Pulse Resp BP Pulse Ox 97.8 F 104 16 105/65 98 07/01/18 02:47 07/01/18 02:47 07/01/18 02:47 07/01/18 02:47 07/01/18 02:47 Internal Med - H&P Results - Labs CBC & Chem 7: 06/30/18 22:01 06/30/18 22:01 - Attending Attestation The patient is a 52-year-old male with a history of COPD who became paraplegic after spinal surgery for removal of a mass, unspecified. He has been in a fdc ever since and is brought in now for complaints of generalized malaise, abdominal pain and concerns for an infection due to formation and extension of decubitus ulcers. He was noted tachycardic and has reports of fever from the fdc, seen here to have mild leukocytosis as well. Urinalysis was obtained from the port of his Willis catheter and remarkable for leukocyte esterase, nitrites and white blood cells. There was also concern that his that he was also might be infected and for these reasons he has been started on broad-spectrum antibiotics of vancomycin and PIP/tazo. On my physical exam he is lying in bed in no acute distress but feels on well as per him and says his stomach is queasy. He reports feeling more cold than usual and occasionally sweaty. He reports being on antibiotics recently being treated in "[place]" which he says was for his back. On my exam he has pale skin and is able to move both lower extremities with minute movements which he says is new. His decubitus ulcers were reviewed and while large and extensive affecting his trochanter and lumbosacral area, they are non-foul smelling and without purulence with no extension to the bone visualized. Borders appear clean. Based on the local assessment of these wounds they do not appear acutely infected however he may have recently underwent wound care and his recent course of antibiotics may have helped. His urinalysis is of greater concern and will follow-up with a culture. For now, based on his history of prior infections and MRSA it is prudent to keep him on vancomycin for these 24 hours after which this can be discontinued pending further results. Obtain a contrast CT of the area and continue coverage for gram-negative enteric organisms and anaerobes. Can narrow antibiotic based on urine culture results as well. Wound care nurse necessary for adequate dressing. Obtain records from [facility] to see what was done for him recently so we do not duplicate measures. Further mgmt per resident's note. - Time Spent With Patient Total time spent is greater than 50% in coordination of care (as documented) at patient's floor/unit and/or counseling patient: <Uriah Whittaker - Last Filed: 07/01/18 03:57> Date of Encounter: 07/01/18 Time of Encounter: 02:47 Internal Medicine - H&P: HPI Chief complaint: fevers Admitted From: Emergency Dept Plans for Post Hospital Care: [facility] History of present illness: Mr. Carrasco is a 52 year old male with past medical history of COPD, paraplegia secondary to spinal mass removal who presents to emergency department with complaint of fevers. He is presenting from senior living facility where he states that he has had fevers off and on for the past couple weeks and states they have measured as high as 102 with associated chills in upper extremities. He does state he is getting over a upper respiratory infection with a productive cough with thin white sputum. He admit to some nausea without vomiting, denies abdominal pain, changes in bowel movements, dysuria or frequency. Due to his paraplegia, patient does have a chronic indwelling Willis catheter. He is also known to have extensive sacral decubitus ulcers. He states that he has had multiple treatments in [place] including antibiotics but is unsure what kind. In the ED, vitals were significant for tachycardia of 121, temperature 99.4. Labs significant for WBC elevation of 12.9, low albumin at 3.1, urinalysis showing White blood cells, leukocyte esterase, nitrates with epithelial cells. He does have previous urine cultures that did grow MRSA. Past medical history as above Past surgical history includes multiple orthopedic involving spine in [place] Past social history: Current smoker approximately 8 cigarettes per day, denies alcohol use, states he is a former drug user and has been on Suboxone the past. Past Med Surg Social [facility] - Past Medical History Medical history: COPD, GERD, hepatitis, other Additional medical history: spinal stenosis, anemia, encephalopathy, GI hemorrhage,MRSA, osteomyelitis, pressure ulcer Psychiatric history: bipolar, schizophrenia - Past Surgical History Surgical History: non-contributory Additional surgical history: back/spine surgery - Social History Smoking Status: Current every day smoker Smokeless Tobacco Status: No Alcohol use: none Drug use: none All Systems PM: A 10-system review of systems was performed and is negative for pertinent findings except as documented above in the HPI. - Constitutional Constitutional: chills, fever(s), weakness, no anorexia - Cardiovascular Cardiovascular ROS IM: no chest pain, no diaphoresis, no dyspnea, no dyspnea on exertion, no edema, no orthopnea, no palpitations - Respiratory Respiratory: cough, chest congestion, change in phlegm color, no dyspnea, no dyspnea on exertion - Gastrointestinal Gastrointestinal: nausea, no abdominal pain, no constipation, no diarrhea, no hematochezia, no loose stools, no vomiting - Genitourinary Genitourinary ROS male: no dysuria, no urinary frequency - Musculoskeletal Musculoskeletal ROS IM: muscle weakness, numbness - Neurological Neurological ROS: numbness, weakness, no tingling - Constitutional Vitals: Temp Pulse Resp BP Pulse Ox 99.4 F 105 16 115/71 100 06/30/18 21:43 07/01/18 01:04 07/01/18 01:04 07/01/18 01:04 07/01/18 01:04 Exam: Gen.: Vitals noted. No acute distress. AAOx3, resting comfortably in bed HEENT: PERRL/EOMI, oropharynx clear, Normocephalic, atraumatic, moist membranes Cardiac: RRR, no murmur, +S1/S2. Mildly tachycardic. Pulmonary: CTA bilaterally, no wheezes, rales or rhonchi, equal chest expansion Abdomen: soft, nontender, BS noted, no guarding Integumentary: Extensive lumbosacral decubitus ulcers 4, largest one measuring 10 cm x 6 cm and approximately 1.5 cm in depth. No purulent drainage or foul smell. Borders are clear. MSK: 2/5 muscle strength in lower extremities consistent with his baseline Extremities: no BLE edema, nontender calf, no cyanosis or clubbing. pale, cool limbs Neuro: A&Ox3, moves all extremities with twitching of lower extremities. Numbness of bilateral lower extremity with decreased sensation, more prominent distally Psych: Appropriate mood and behavior Internal Med - H&P Results - Labs CBC & Chem 7: 06/30/18 22:01 06/30/18 22:01 - Assessment and plan (1) Sepsis Current Visit: Yes Status: Acute Assessment and plan: - 2/4 of SIRS criteria with heart rate in presentation of 121, WBC of 12.9. Patient also states he was febrile prior to presentation with a MAXIMUM TEMPERATURE of 102 - Lactic acid within normal limits at 1.4 - Previous culture results show MRSA in the urine - Most likely source is urinary tract infection as below however also may be related to extensive sacral ulcers - Patient states he has had multiple antibiotics in [place], but is unsure which ones - Blood cultures, urine cultures obtained emergency department. We will also obtain wound cultures to de-escalate antibiotics Plan - Continue vancomycin, Zosyn - Follow up on culture results - Wound care. Daily dressing changes. - We will continue giving fluids which has been improving his heart rate - Obtain CT scan as below to rule out osteomyelitis. Also CRP, ESR Qualifiers: Sepsis type: sepsis due to unspecified organism Qualified Code(s): A41.9 - Sepsis, unspecified organism (2) UTI (urinary tract infection) Current Visit: Yes Status: Acute Assessment and plan: - Urinalysis in emergency room positive for white blood cells, leukocyte esterase, nitrites - Previous urine cultures have grown MRSA positive - Does meet sepsis criteria as above - We will start on vancomycin and Zosyn and follow up urine cultures and blood cultures obtained in ED - Willis catheter in place secondary to incontinence with wounds Qualifiers: Urinary tract infection type: acute cystitis Hematuria presence: with hematuria Qualified Code(s): N30.01 - Acute cystitis with hematuria (3) Pressure ulcer of sacral region, stage 4 Current Visit: Yes Status: Chronic Assessment and plan: - Extensive sacral decubitus ulcers as noted and physical exam - Possible source of infection however no purulence or foul smell was noted - No visible bone - Wound care has been consulted Plan - Daily wound care and dressing changes - We will obtain ESR and CRP - We will obtain CT with contrast of the lumbar region to rule out osteomyelitis - Antibiotics as above vancomycin and Zosyn - We will obtain records from [place] (4) Weakness of both lower extremities Current Visit: Yes Status: Chronic Assessment and plan: Chronic at Baseline secondary to spinal mass removal surgery (5) COPD (chronic obstructive pulmonary disease) Current Visit: Yes Status: Chronic Assessment and plan: - Does not appear to be in acute exacerbation - Patient counseled about smoking cessation and he states he is trying Qualifiers: COPD type: emphysema Emphysema type: unspecified Qualified Code(s): J43.9 - Emphysema, unspecified (6) Tobacco use Current Visit: Yes Status: Chronic Assessment and plan: Patient states he is trying to quit and is down to 8 cigarettes per day. We agreed that full cessation is highly beneficial. He was offered a nicotine patch and is declining at this time (7) Fever Current Visit: Yes Status: Acute Assessment and plan: As above for sepsis, likely infectious in etiology Qualifiers: Fever type: due to other condition Qualified Code(s): R50.81 - Fever presenting with conditions classified elsewhere (8) Drug abuse, IV Current Visit: Yes Status: Chronic Assessment and plan: Patient states he has a history of IV drug use however states it has been years. He explains to me it was heroin, however cocaine and demonstrated per chart review most recently 1 year ago. Of note for chart review, he is hepatitis C positive. We will obtain a UDS (9) DVT prophylaxis Current Visit: Yes Status: Acute Assessment and plan: Heparin 5000 units every 12 hours - Time Spent With Patient Total time spent is greater than 50% in coordination of care (as documented) at patient's floor/unit and/or counseling patient:
[2018-07-01] MEDS: *HR* OxyCODONE Immed Rel 5 MG TABLET PO PRN ×3 (03:56→19:15)
[2018-07-01] MEDS ORDERED: Ondansetron 4 MG/2 ML VIAL IVP PRN (05:00)
[2018-07-01 06:18] LABS: Basophils % 0.5 %; Eosinophils # 0.3 K/mcL (0.0-0.6); Eosinophils % 3.4 %; Hematocrit 30.3 % (37.5-50.1); Hemoglobin 9.5 g/dL (12.9-16.9); Immature Granulocytes % 0.4 % (0-4); Lymphocytes # 2.2 K/mcL (0.6-4.6); Mean Corpuscular HGB Conc 31.4 g/dL (31.6-35.5); Mean Corpuscular Hemoglobin 27.1 pg (28.0-33.3); Mean Corpuscular Volume 86.3 fL (83.0-100.0); Mean Platelet Volume 8.9 fL (9.4-12.4); Monocytes # 0.8 K/mcL (0.0-1.3); Monocytes % 9.5 %; Neutrophils # 4.7 K/mcL (1.6-8.9); Platelet Count 282 K/mcL (140-400); Red Blood Count 3.51 M/mcL (4.19-5.50); Red Cell Distribution Width 17.1 % (11.5-14.5); Segmented Neutrophils % 59.2 %
[2018-07-01] MEDS: *HR* Heparin 5,000 UNIT/ML VIAL SQ SCH ×3 (06:21→20:19)
[2018-07-01 06:38] LABS: BUN/Creatinine Ratio 21 (6-26); Blood Urea Nitrogen 9 mg/dL (6-20); Calcium 8.5 mg/dL (8.6-10.3); Carbon Dioxide 23 mEq/L (23-29); Chloride 106 mEq/L (98-107); Glucose 99 mg/dL (70-105); Osmolality,Calculated 277 (280-300); Potassium 3.8 mEq/L (3.5-5.1); Sodium 134 mEq/L (136-145); eGFR For Non-African Americans > 60 (> 60)
[2018-07-01] MEDS: Piperacillin/Tazobactam 3.375 GM in 0.9 % Sodium Chloride Mini Bag 100 ML IVPB SCH ×2 (08:50→15:03)
--- NOTE | 2018-07-01 10:40 | Sepsis Event Note ---
Sepsis Reassessment Note - Evaluation Sepsis Screen: No Definite Risk Current Stage of Sepsis: sepsis Possible Source of Sepsis: genitourinary - Focused Exam Date of Encounter: 07/01/18 Time of Encounter: 10:39 Vital Signs: Vital Signs Temp Pulse Resp BP Pulse Ox 07/01/18 09:07 100 07/01/18 07:07 97.5 F L 86 16 107/69 100 07/01/18 05:59 98.1 F 101 16 87/54 98 07/01/18 02:47 97.8 F 104 16 105/65 98 07/01/18 01:04 105 16 115/71 100 Respiratory Exam: Present: CTA bilaterally Cardiovascular Exam: Present: tachycardia, S1, S2. Absent: murmur, rubs Capillary Refill: < 2 seconds Peripheral Pulse Strength: 3+ normal Peripheral Pulse Location: Radial Skin Exam: pale - Reassessment Comments Comments: decubitis sacral ulcer with areas of questionable purulence and brown borders
[2018-07-01] MEDS ORDERED: traMADol 50 MG TABLET PO PRN ×2 (13:17→13:29)
[2018-07-01] MEDS ORDERED: Albuterol 2.5 MG/3 ML NEBULIZER IH PRN (13:17)
[2018-07-01] MEDS ORDERED: Famotidine 20 MG TABLET PO SCH (13:30)
--- NOTE | 2018-07-01 13:41 | Internal Med Progress Note ---
<Irene Fofana - Last Filed: 07/01/18 18:25> Hospitalist Progress Note - Encounter Date of Encounter: 07/01/18 Time of Encounter: 13:34 - Subjective Interval History: 52 year old male with history of paraplegia secondary to spinal surgery, lives at half-way, has indwelling mccallum catheter and stage 4 sacral decubitus ulcer, previously had PICC line and IV antibiotics for spinal surgery. Admitted 07/01 with fevers and sepsis. UA positive for leukocyte esterase and WBCs. BC and UC pending. Started on vancomycin and zosyn due to history of MRSA UTI. Subjective Patient complains of pain in his leg, back, and sacral ulcers. Has mild nausea, no vomiting or abdominal pain. Continues to have subjective fevers. - Exam Vitals: Temp Pulse Resp BP Pulse Ox 97.5 F L 102 20 104/59 99 07/01/18 10:45 07/01/18 10:45 07/01/18 10:45 07/01/18 10:45 07/01/18 10:45 Exam: Gen.: No acute distress. AAOx3, resting comfortably in bed HEENT: PERRL/EOMI, oropharynx clear, poor dentition, Normocephalic, atraumatic, moist membranes Cardiac: RRR, no murmur, +S1/S2. Mildly tachycardic. Pulmonary: CTA bilaterally, no wheezes, rales or rhonchi, equal chest expansion Abdomen: soft, nontender, BS noted, no guarding Integumentary: Extensive lumbosacral decubitus ulcers 4, largest one measuring 10 cm x 6 cm and approximately 1.5 cm in depth. No purulent drainage but there is a foul smell. Borders are clear. MSK: 2/5 muscle strength in lower extremities consistent with his baseline Extremities: no BLE edema, nontender calf, no cyanosis or clubbing. pale, cool limbs Neuro: A&Ox3, moves all extremities with twitching of lower extremities. Numbness of bilateral lower extremity with decreased sensation, more prominent distally Psych: Appropriate mood and behavior - Assessment and Plan (1) Osteomyelitis of coccyx Status: Acute Assessment and Plan: - Chronic vs acute on chronic - Per ID recommendations, will d/c Vanc/Zosyn and undergo IR guided biopsy and pathology tomorrow -Discussed case with surgery who recommended transfer to [facility] given need for pressure-relieving beds and potential for needing higher acuity of care, following and offered debridement if necessary - Patient was offered transfer to [facility] for higher level of care but he wants to think about it overnight - Continue daily rechecks, appreciate ID recommendations - Previously on IV abx, was sent home on PO doxycycline for chronic immunosuppressive therapy after spinal surgery (2) Pressure ulcer of sacral region, stage 4 Status: Chronic Assessment and Plan: - Wound consult - Cultures pending - Has transitioned to osteomyelitis but unsure if acutely infected (3) COPD (chronic obstructive pulmonary disease) Status: Chronic Assessment and Plan: - Continue to monitor vitals, not hypoxic at this time (4) Weakness of both lower extremities Status: Chronic Assessment and Plan: Chronic at Baseline secondary to spinal mass removal surgery (5) Tobacco use Status: Chronic Assessment and Plan: Patient states he is trying to quit and is down to 8 cigarettes per day. We agreed that full cessation is highly beneficial. He was offered a nicotine patch and is declining at this time (6) DVT prophylaxis Status: Acute Assessment and Plan: Heparin 5000 units every 8 hours (7) Fever Status: Acute Assessment and Plan: - On presentation the patient was afebrile but at home it was up to 102F, currently afebrile - Will attempt to identify source, likely urinary vs decubitis ulcer infection vs URI given recent congestion and cough - cultures pending, will recheck CBC in am - Time Spent with Patient Total time spent is greater than 50% in coordination of care (as documented) at patient's floor/unit and/or counseling patient: Greater than 35 minutes Internal Medicine: Result - Labs CBC & Chem 7: 07/01/18 05:31 07/01/18 05:31 Labs: Short CBC 07/01/18 Range/Units 05:31 WBC 8.0 (4.3-11.1) K/mcL Hgb 9.5 L (12.9-16.9) g/dL Hct 30.3 L (37.5-50.1) % Plt Count 282 (140-400) K/mcL Neutrophils # 4.7 (1.6-8.9) K/mcL BMP 07/01/18 05:31 Sodium 134 L Potassium 3.8 Chloride 106 Carbon Dioxide 23 BUN 9 Creatinine 0.42 L Glucose 99 Calcium 8.5 L - Impressions Impressions Lumbar Spine CT 07/01/18 08:00 IMPRESSION: Deep sacral decubitus ulcer with evidence of osteomyelitis involving the mid coccyx. [id number] lumbar spondylosis. No spinal stenosis or significant foraminal stenosis. D/ / Omar Santos MD / Omar Santos MD Interpreting Provider: Omar Santos MD Consult Discharge Plan - Plan Referrals: Jayson Gutierrez, PAC [Primary Care Provider] - <Aftab Cornejo - Last Filed: 07/02/18 21:00> Hospitalist Progress Note - Encounter Date of Encounter: 07/02/18 - Exam Vitals: Temp Pulse Resp BP Pulse Ox 97.7 F 100 18 96/52 99 07/02/18 15:08 07/02/18 15:08 07/02/18 15:08 07/02/18 15:08 07/02/18 15:08 - Assessment and Plan (1) Sepsis Status: Acute (2) Osteomyelitis of coccyx Status: Acute (3) Weakness of both lower extremities Status: Chronic (4) UTI (urinary tract infection) Status: Acute (5) COPD (chronic obstructive pulmonary disease) Status: Chronic (6) DVT prophylaxis Status: Acute (7) Drug abuse, IV Status: Chronic (8) Tobacco use Status: Chronic (9) Pressure ulcer of sacral region, stage 4 Status: Chronic - Time Spent with Patient Total time spent is greater than 50% in coordination of care (as documented) at patient's floor/unit and/or counseling patient: Internal Medicine: Result - Labs CBC & Chem 7: 07/02/18 04:48 07/02/18 04:48 Labs: Short CBC 07/02/18 Range/Units 04:48 WBC 9.6 (4.3-11.1) K/mcL Hgb 9.2 L (12.9-16.9) g/dL Hct 29.1 L (37.5-50.1) % Plt Count 298 (140-400) K/mcL Neutrophils # 5.8 (1.6-8.9) K/mcL BMP 07/02/18 04:48 Sodium 134 L Potassium 4.0 Chloride 104 Carbon Dioxide 23 BUN 6 Creatinine 0.44 L Glucose 91 Calcium 8.8 - ABG Interpretation ABG results: PT/INR, D-dimer PT 14.1 Seconds (9.4-12.1) H 07/02/18 13:28 - Attending Attestation I examined this patient and my medical decision-making was reviewed with the Resident Physician Dr. Vasquez. I agree with the documented findings, disposition and treatment plan as described except to the extent set forth below. <Irene Fofana - Last Filed: 07/01/18 18:25> (3) COPD (chronic obstructive pulmonary disease) Qualifiers: COPD type: emphysema Emphysema type: unspecified Qualified Code(s): J43.9 - Emphysema, unspecified (7) Fever Qualifiers: Fever type: due to other condition Qualified Code(s): R50.81 - Fever presenting with conditions classified elsewhere <Aftab Cornejo - Last Filed: 07/02/18 21:00> (1) Sepsis Qualifiers: Sepsis type: sepsis due to unspecified organism Qualified Code(s): A41.9 - Sepsis, unspecified organism (4) UTI (urinary tract infection) Qualifiers: Urinary tract infection type: acute cystitis Hematuria presence: with hematuria Qualified Code(s): N30.01 - Acute cystitis with hematuria (5) COPD (chronic obstructive pulmonary disease) Qualifiers: COPD type: emphysema Emphysema type: unspecified Qualified Code(s): J43.9 - Emphysema, unspecified
[2018-07-01 14:51] LABS: Bilirubin,Urine Negative (Negative); Blood,Urine Negative (Negative); Clarity,Urine Clear (Clear); Color,Urine Yellow (Yellow); Glucose,Urine (UA) Normal (Normal); Ketones,Urine Negative (Negative); Leukocyte Esterase,Urine Negative (Negative); Nitrite,Urine Negative (Negative); PH,Urine 6.5 pH Units (5.0-8.0); Protein,Urine Negative (Neg-Trace); Specific Gravity,Urine > 1.030 (1.010-1.025); Urobilinogen,Urine Normal (Normal)
[2018-07-01] MEDS: Gabapentin 300 MG CAPSULE PO SCH ×2 (15:03→20:20)
[2018-07-01] MEDS: Baclofen 10 MG TABLET PO SCH ×2 (15:03→20:20)
--- NOTE | 2018-07-01 16:20 | Infectious Disease Consult ---
Date of Encounter: 07/01/18 Time of Encounter: 16:11 Assessment and Plan (1) Sepsis Status: Acute Assessment and plan: The patient had to search criteria on admission plus fevers documented at the halfway. Etiology unclear. He does have what appears to be osteomyelitis of the coccyx, but I am unsure if this is new osteomyelitis or findings left over from his previously treated osteomyelitis. He does report some upper respiratory tract infection symptoms that are improved. White blood cell count has normalized. Tachycardia has resolved and he has not had any documented fevers here. Blood culture obtained 1 set emergency department is pending. Repeat blood cultures 2 sets now. Qualifiers: Qualified Code(s): A41.9 - Sepsis, unspecified organism (2) Osteomyelitis of coccyx Status: Acute Assessment and plan: Location: Mid coccyx per CT of L-spine. Cause of organism: Unclear. Unsure if this is acute osteomyelitis versus chronic. The patient has received 12 weeks of various IV antibiotics for osteomyelitis. Previously, cultures were positive for Morganella, Klebsiella, yeast, and Pseudomonas. He received 6 weeks of IV ertapenem and fluconazole. He then received an additional 6 weeks of IV cefepime and by mouth Flagyl. He was also given oral doxycycline for chronic oral suppressive therapy or the infection in his back due to the presence of hardware. We have recommended transfer to [facility] for further evaluation by plastic surgery and wound care. The patient has declined and states he wants to think about it. ESR is elevated at 85 with a CRP of 46. Wound culture has been obtained and is pending Recommend holding additional antibiotics at this point. If the patient becomes toxic or spikes a fever, then can restart broad-spectrum antibiotics. I would like to get cultures via CT-guided biopsy per interventional radiology tomorrow before restarting antibiotics if at all possible. Consult IR to assist with CT-guided biopsy. Send specimens for culture, aerobic and anaerobic, and pathology. Can restart vancomycin and Zosyn after the procedure or if the patient becomes acutely ill/toxic. Duration of treatment depends on the clinical picture. Monitor renal function and for drug toxicity and dose-adjust antibiotics (3) Pressure ulcer of sacral region, stage 4 Status: Chronic Assessment and plan: Location: Sacrum/coccyx. Etiology: Likely secondary from poor offloading and lack of wound care. Wound care team consulted and recommend general surgery to evaluate. General surgery recommends transfer to [facility] for plastic surgery and wound care evaluation given the extent of his wounds, but the patient currently declines transfer and wants to think about it. Dressing changes per the wound care/general surgery teams. (4) Weakness of both lower extremities Status: Chronic Assessment and plan: Residual from previous surgeries. Recommend PT/OT to evaluate. (5) Tobacco use Status: Chronic (6) Hepatitis C Status: Chronic Assessment and plan: Secondary to previous history of IVDU. Reports last IVDU in November 2017. Consider checking HIV status. Qualifiers: Qualified Code(s): B19.20 - Unspecified viral hepatitis C without hepatic coma Infectious Disease HPI - Data of Consult Patient: known to practice within the last 3 years Consult date: 07/01/18 Requesting Physician: Nick Jose MD Primary Care Provider: Jayson Gutierrez - Consult Narrative Reason for consult: Sacral osteomyelitis History of present illness: Mr. Carrasco is a 52 year old male with a past medical history of COPD, GERD, hepatitis C, spinal stenosis, bipolar disorder, schizophrenia, GI bleed, status post cervical fusion in February 2017, status post epidural abscess evacuation and laminectomy in December 2017, MRSA bacteremia in December 2017, and osteomyelitis of the sacrum in March 2018 status post 12 weeks of IV antibiotic therapy completed on June 22. The patient was admitted to the hospital June 30 for fever. We are consulted July 01 for further recommendations for osteomyelitis of the coccyx. Briefly, the patient is a 52-year-old male with past medical history as stated above. The patient is noted to the ID services were consulted on this case when he was hospitalized here back in December. At that time, the patient came in with altered mental status and concern for bacterial meningitis. He ended up having some progressive paralysis to the bilateral lower extremities underwent an MRI of the lumbar spine that revealed findings consistent with an epidural abscess. He was subsequently transferred to [facility] where he underwent treatment for MRSA bacteremia and epidural abscess. On December 31, he had an I&D and C5-T1 laminectomy. He was treated with 8 weeks of IV vancomycin and by mouth rifampin, which were discontinued on March 09. He was then started on oral doxycycline for chronic suppressive therapy given the hardware in his neck. In March, the patient was admitted at [facility] and was noted to have regression of the decubitus ulcers that he had developed while hospitalized. He underwent an MRI that showed ostial myelitis of the sacrum. Cultures at that time grew out Morganella, Klebsiella and yeast. He was discharged to complete a 6-8 week course of IV ertapenem and fluconazole. He followed up with the geriatrics Department at [facility] and had a repeat wound culture on May 01 that grew out Pseudomonas. The ertapenem was discontinued and he was started on cefepime 2 g IV every 8 hours and by mouth Flagyl with plans to complete an additional 6 weeks. The oral fluconazole and oral doxycycline were continued as well. On May 14, the patient was seen back in the office and was complaining of nausea and vomiting since changing his medications. Since the most recent wound culture did not grow any anaerobes or yeast, the Flagyl and fluconazole were discontinued to see if that would help with his nausea and vomiting. He was seen by [facility] infectious disease on June 22 and the cefepime was discontinued with plans to continue the doxycycline for an additional 3 months. Apparently, the patient has had low-grade fevers for about the past week since he came to the ER for evaluation. Upon arrival, the patient was afebrile. He was tachycardic and had a mild leukocytosis. Laboratory studies revealed a normal kidney function and normal lactic acid. Troponin was negative. LFTs were normal. His urinalysis appeared contaminated. Blood cultures were obtained 1 set and are pending. He was started empirically on Vanco and Zosyn and admitted to the hospital for further evaluation. Since admission, the patient's leukocytosis has resolved. He had a CT of the L- spine that showed findings consistent with ostial myelitis of the mid coccyx. His ESR is elevated at 85 with a CRP of 46. General surgery has been consulted to assist with wound care and they are recommending transfer to [facility]. We have been asked to evaluate and make further recommendations. During my exam today, the patient endorses a history as stated above. He states that last week he had some upper respiratory tract system symptoms that made him think he had bronchitis. He states the halfway physician put him on a 5 day course of Mucinex which did not seem to really help his symptoms. He states he had low-grade fevers at that time as well. He states overall his URI symptoms have improved, but he continues to have low-grade fevers. He denies any headache. He does report chronic neck pain from his recent surgery. He denies any chest pain, shortness of breath, or cough. He reports some intermittent nausea, but denies vomiting. He denies abdominal pain. He does have a chronic indwelling Willis catheter. He states his appetite has been okay. He is not able to tell me if the wounds are getting better or if they are worse. He states that overall his paresis is improving and he is able to move his legs a little bit. The patient currently resides in a local extended care facility. He smokes about half pack cigarettes per day. He denies any alcohol or illicit drug use. He is hep C positive due to previous history of IV drug use. CC: Nick Jose MD Past Med Surg Social Fam HX - Past Medical History Attestation: Yes The following information was validated with the patient. Source: patient, old records reviewed, nursing notes reviewed Medical history: COPD, GERD, hepatitis, other Additional medical history: spinal stenosis, anemia, encephalopathy, GI hemorrhage,MRSA, osteomyelitis, pressure ulcer Psychiatric history: bipolar, schizophrenia - Past Surgical History Surgical History: non-contributory Additional surgical history: back/spine surgery, evacuation of epidural abscess , I&D, C5-T1 laminectomy December 2017 - Social History Smoking Status: Current every day smoker Packs per day: 0.5 Smokeless Tobacco Status: No Alcohol use: none Drug use: none Occupational status: disabled Current living situation: [facility] Activity Level: Bed bound Recent Out of Country Travel Within the Last 8 Weeks: No Exposure or Possible Exposure to Illness During Travel: No Infectious Disease-CN:Meds Aspirin 81 mg PO DAILY tab.chew 12/30/17 [Rx] Albuterol Neb [Proventil Neb] 2.5 mg IH Q6H PRN 07/01/18 [History] Baclofen [Lioresal] 10 mg PO TID 07/01/18 [History] Dicyclomine [Bentyl] 10 mg PO DAILY 07/01/18 [History] Doxycycline Hyclate [Vibramycin] 100 mg PO BID 07/01/18 [History] Famotidine [Heartburn Prevention] 20 mg PO Q12H 07/01/18 [History] Fluticasone/Vilanterol [Breo Ellipta 100-25 Mcg INH] 1 puff IH DAILY 07/01/18 [ History] Gabapentin [Neurontin] 600 mg PO TID 07/01/18 [History] Heparin 5,000 unit SQ Q12HR 07/01/18 [History] Iron Polysaccharide Complex [Ferrex 150] 150 mg PO BID 07/01/18 [History] Lactobacillus Acidophilus [Acidophilus Lactobacillus] 2 cap PO BID 07/01/18 [ History] Nortriptyline [Pamelor] 25 mg PO HS 07/01/18 [History] OLANZapine [Zyprexa] 7.5 mg PO DAILY 07/01/18 [History] Polyethylene Glycol 3350 [MiraLAX Powder Bulk 17.9 Oz] 1 scoop PO DAILY [History] Tramadol HCl [Ultram] 50 mg PO Q8H PRN 07/01/18 [History] Valproic Acid (As Sodium Salt) [Valproic Acid] 500 mg PO HS 07/01/18 [History] metroNIDAZOLE [Flagyl] 500 mg PO TID 07/01/18 [History] 3 Allergy/AdvReac Type Severity Reaction Status Date / Time No Known Allergies Allergy Verified 04/02/17 06:02 All systems: reviewed and no additional remarkable complaints except as stated Exam - Constitutional Vitals: Temp Pulse Resp BP Pulse Ox 98.0 F 91 18 99/62 91 07/01/18 16:06 07/01/18 16:06 07/01/18 16:06 07/01/18 16:06 07/01/18 16:06 General appearance: average body habitus, cooperative, no acute distress - Head Head exam: Present: atraumatic, normal inspection, normocephalic - Eye Eye exam: Present: EOMI, normal appearance, PERRL Pupils: Present: normal accommodation - ENT ENT exam: Present: mucous membranes moist - Neck Neck exam: Present: normal inspection - Respiratory Respiratory exam: Present: CTAB. Absent: rales, respiratory distress, rhonchi, wheezes - Cardiovascular Cardiovascular exam: Present: RRR, +S1, +S2 - GI/Abdominal GI/Abdominal exam: Present: normal bowel sounds, soft. Absent: distended, tenderness Additional comments: Willis catheter noted to be draining clear urine. - Extremities Exam Extremities exam: Present: normal inspection. Absent: joint swelling, pedal edema, tenderness - Back Exam Back exam: Present: normal inspection. Absent: paraspinal tenderness, vertebral tenderness Additional comments: Multiple stage IV decubitus ulcers noted to the sacrum and coccyx and bilateral buttocks. Wound beds appear pink and moist with some slough. There is a foul odor, but no obvious purulent drainage. No erythema or fluctuance noted. - Neurological Exam Neurological exam: Present: alert, oriented X3. Absent: no focal deficits ( Paresis noted to the bilateral lower extremities) - Psychiatric Psychiatric exam: Present: normal affect, normal mood - Skin Skin exam: Present: dry, intact, normal color, warm Infectious Disease CN: Results - Labs CBC & Chem 7: 07/02/18 04:48 07/02/18 04:48 Serology: Serology 07/01/18 Range/Units 13:30 Urine Color Yellow (Yellow) Urine Clarity Clear (Clear) Urine pH 6.5 (5.0-8.0) pH Units Ur Specific [place] > 1.030 H (1.010-1.025) Urine Protein Negative (Neg-Trace) mg/dL Urine Glucose (UA) Normal (Normal) mg/dL Urine Ketones Negative (Negative) mg/dL Urine Blood Negative (Negative) Urine Nitrite Negative (Negative) Urine Bilirubin Negative (Negative) Urine Urobilinogen Normal (Normal) mg/dL Ur Leukocyte Esterase Negative (Negative) Consult Discharge Plan - Plan Referrals: Jayson Gutierrez, PAC [Primary Care Provider] - - Attending Attestation I examined this patient and my medical decision-making was reviewed with the Resident Physician. I agree with the documented findings, disposition and treatment plan as described except to the extent set forth below. This is an addendum to original report dictated by Nataly Hartley CNP. Please refer to Nataly's note for full detail. Patient is a 50-year-old gentleman with extensive past medical history mentioned below and multiple psychiatric history who had an epidural abscess evacuation a maximum December 2017 with status post hemiparesis. 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 Patient has been treated at [facility]. Patient was on IV antibiotics for 6 weeks followed by doxycycline for quite some time. Patient initially was being transferred to [facility] by then decided to stay. At this point patient appears comfortable lying in bed. His wound appears deep stage IV but no visible bone. MRI is reviewed. We were asked to evaluate the patient and make further recommendations. At this point unsure this is acute osteomyelitis versus acute on chronic versus just delayed radiological findings post treatment. Patient's inflammatory markers are elevated at ESR 85 and CRP 46. Wound cultures were obtained and still pending. Broad-spectrum antibiotics were initially started. We were asked to evaluate the patient and make further recommendations. Hold antibiotics currently unless signs of sepsis appear Once we get CT-guided biopsy her IR then we can resume broad-spectrum antibiotics until cultures finalize and then we will tailor antibiotics accordingly. Monitor for drug toxicity I had a very long discussion with the patient I explained to him that aggressive surgical intervention is keeping to his improvement. He tells me he will think about it and make a decision by the morning.
--- NOTE | 2018-07-01 17:29 | Electrocardiograph Report ---
[address] [place], [place] [address] Test Date: 2018-06-30 Pat Name: Fausto Carrasco Department: Room: 2A45 Gender: M Clinic Administrator: : 1965 Requested By: Nick Jose Order Number: [id number] Reading MD: Zulay Ramires Measurements Intervals [place] Rate: 119 P: 75 [place]: 143 QRS: 27 QRSD: 82 T: 63 QT: 307 QTc: 432 Interpretive Statements Sinus tachycardia Probable left atrial enlargement Electronically Signed On 07-01-2018 17:27:56 EDT by Zulay Ramires
[2018-07-01] MEDS ORDERED: *HR* Heparin 5,000 UNIT/ML VIAL SQ SCH (18:00)
[2018-07-01] MEDS: Lactobacillus 1 EACH CAP.SPRINK PO SCH (20:20)
[2018-07-01] MEDS: Iron Polysaccharide Complex 150 MG CAPSULE PO SCH (20:20)
[2018-07-01] MEDS ORDERED: Valproic Acid 250 MG CAPSULE PO SCH (21:00)
[2018-07-01] MEDS: *HR* HYDROcodone/Acet 5/325 mg TABLET PO PRN (21:45)
[2018-07-01] MEDS: Budesonide/Formoterol 160/4.5 MDI IH SCH (22:35)
[2018-07-02] MEDS: *HR* OxyCODONE Immed Rel 5 MG TABLET PO PRN ×2 (04:50→13:57)
[2018-07-02] MEDS: *HR* Heparin 5,000 UNIT/ML VIAL SQ SCH ×2 (04:55→13:49)
[2018-07-02 05:34] LABS: Basophils % 0.3 %; Eosinophils # 0.3 K/mcL (0.0-0.6); Eosinophils % 2.8 %; Hematocrit 29.1 % (37.5-50.1); Hemoglobin 9.2 g/dL (12.9-16.9); Immature Granulocytes % 0.3 % (0-4); Lymphocytes # 2.6 K/mcL (0.6-4.6); Lymphocytes % 27.5 %; Mean Corpuscular HGB Conc 31.6 g/dL (31.6-35.5); Mean Corpuscular Hemoglobin 27.2 pg (28.0-33.3); Mean Corpuscular Volume 86.1 fL (83.0-100.0); Mean Platelet Volume 8.5 fL (9.4-12.4); Monocytes # 0.9 K/mcL (0.0-1.3); Monocytes % 8.9 %; Neutrophils # 5.8 K/mcL (1.6-8.9); Platelet Count 298 K/mcL (140-400); Red Blood Count 3.38 M/mcL (4.19-5.50); Red Cell Distribution Width 16.6 % (11.5-14.5); Segmented Neutrophils % 60.2 %
[2018-07-02 05:50] LABS: BUN/Creatinine Ratio 14 (6-26); Blood Urea Nitrogen 6 mg/dL (6-20); Calcium 8.8 mg/dL (8.6-10.3); Carbon Dioxide 23 mEq/L (23-29); Chloride 104 mEq/L (98-107); Glucose 91 mg/dL (70-105); Osmolality,Calculated 275 (280-300); Sodium 134 mEq/L (136-145); eGFR For Non-African Americans > 60 (> 60)
[2018-07-02] MEDS: Budesonide/Formoterol 160/4.5 MDI IH SCH (07:35)
[2018-07-02] MEDS ORDERED: 0.9 % Sodium Chloride 1,000 ML IVC ONE ×2 (08:37→15:47)
[2018-07-02] MEDS ORDERED: Piperacillin/Tazobactam 3.375 GM in 0.9 % Sodium Chloride Mini Bag 100 ML IVPB STA (08:46)
--- NOTE | 2018-07-02 08:50 | Internal Med Progress Note ---
Hospitalist Progress Note - Encounter Date of Encounter: 07/02/18 Time of Encounter: 08:48 - Exam Vitals: Temp Pulse Resp BP Pulse Ox 97.6 F 112 18 91/53 99 07/02/18 08:29 07/02/18 08:29 07/02/18 08:29 07/02/18 08:29 07/02/18 08:29 Exam: Gen.: NAD. AAOx3 HEENT: PERRL/EOMI, MMM Cardiac: RRR, no murmur, +S1/S2. Mildly tachycardic. Pulmonary: CTA bilaterally, no wheezes, rales or rhonchi, equal chest expansion Abdomen: soft, nontender, BS noted, no guarding Integumentary: Extensive lumbosacral decubitus ulcers 4, largest one measuring 10 cm x 6 cm and approximately 1.5 cm in depth. No purulent drainage. - Assessment and Plan (1) Sepsis Current Visit: Yes Status: Acute Assessment and Plan: - 2/4 of SIRS criteria with heart rate in presentation of 121, WBC of 12.9. Patient also states he was febrile prior to presentation with a MAXIMUM TEMPERATURE of 102 Source is likely OM of coccyx versus UTI. OM was seen on CT exam, UA c/w UTI. - Lactic acid within normal limits at 1.4 - Previous culture results show MRSA in the urine - Most likely source is urinary tract infection as below however also may be related to extensive sacral ulcers - Patient states he has had multiple antibiotics in [place], but is unsure which ones - Blood cultures, urine cultures obtained emergency department. We will also obtain wound cultures to de-escalate antibiotics Antibiotics were held when patient was stable for IR guided bone biopsy. However patient hypotensive and tachycardic and there is concern for sepsis returning. Unfortunately, we will need to resume Vanc/Zosyn instead of waiting for bone biopsy. We will give IV fluids and monitor hemodynamics. Patient agrees to transfer to [facility]. When patient hemodynamically stable, will arrange for this. Follow-up Today repeat LA and repeat BCx. (2) Osteomyelitis of coccyx Current Visit: Yes Status: Acute (3) Weakness of both lower extremities Current Visit: Yes Status: Chronic Assessment and Plan: Chronic at Baseline secondary to spinal mass removal surgery (4) UTI (urinary tract infection) Current Visit: Yes Status: Acute Assessment and Plan: - Urinalysis in emergency room positive for white blood cells, leukocyte esterase, nitrites - Previous urine cultures have grown MRSA positive - Does meet sepsis criteria as above - We will start on vancomycin and Zosyn and follow up urine cultures and blood cultures obtained in ED - Willis catheter in place secondary to incontinence with wounds (5) COPD (chronic obstructive pulmonary disease) Current Visit: Yes Status: Chronic Assessment and Plan: - Does not appear to be in acute exacerbation - Patient counseled about smoking cessation and he states he is trying (6) DVT prophylaxis Current Visit: Yes Status: Acute Assessment and Plan: Heparin 5000 units every 12 hours (7) Drug abuse, IV Current Visit: Yes Status: Chronic Assessment and Plan: Patient states he has a history of IV drug use however states it has been years. He explains to me it was heroin, however cocaine and demonstrated per chart review most recently 1 year ago. Of note for chart review, he is hepatitis C positive. We will obtain a UDS (8) Tobacco use Current Visit: Yes Status: Chronic Assessment and Plan: Patient states he is trying to quit and is down to 8 cigarettes per day. We agreed that full cessation is highly beneficial. He was offered a nicotine patch and is declining at this time (9) Pressure ulcer of sacral region, stage 4 Current Visit: Yes Status: Chronic Assessment and Plan: - Extensive sacral decubitus ulcers as noted and physical exam - Possible source of infection however no purulence or foul smell was noted - No visible bone - Wound care has been consulted Plan - Daily wound care and dressing changes - We will obtain ESR and CRP - We will obtain CT with contrast of the lumbar region to rule out osteomyelitis - Antibiotics as above vancomycin and Zosyn - We will obtain records from [place] - Time Spent with Patient Total time spent is greater than 50% in coordination of care (as documented) at patient's floor/unit and/or counseling patient: Internal Medicine: Result - Labs CBC & Chem 7: 07/02/18 04:48 07/02/18 04:48 Labs: Short CBC 07/02/18 Range/Units 04:48 WBC 9.6 (4.3-11.1) K/mcL Hgb 9.2 L (12.9-16.9) g/dL Hct 29.1 L (37.5-50.1) % Plt Count 298 (140-400) K/mcL Neutrophils # 5.8 (1.6-8.9) K/mcL BMP 07/02/18 04:48 Sodium 134 L Potassium 4.0 Chloride 104 Carbon Dioxide 23 BUN 6 Creatinine 0.44 L Glucose 91 Calcium 8.8 Urine 07/01/18 Range/Units 13:30 Urine Color Yellow (Yellow) Urine Clarity Clear (Clear) Urine pH 6.5 (5.0-8.0) pH Units Ur Specific [place] > 1.030 H (1.010-1.025) Urine Protein Negative (Neg-Trace) mg/dL Urine Glucose (UA) Normal (Normal) mg/dL - Impressions Impressions Lumbar Spine CT 07/01/18 08:00 IMPRESSION: Deep sacral decubitus ulcer with evidence of osteomyelitis involving the mid coccyx. [id number] lumbar spondylosis. No spinal stenosis or significant foraminal stenosis. D/ / Omar Santos MD / Omar Santos MD Interpreting Provider: Omar Santos MD Consult Discharge Plan - Plan Referrals: Jayson Gutierrez, PAC [Primary Care Provider] - (1) Sepsis Qualifiers: Sepsis type: sepsis due to unspecified organism Qualified Code(s): A41.9 - Sepsis, unspecified organism (4) UTI (urinary tract infection) Qualifiers: Urinary tract infection type: acute cystitis Hematuria presence: with hematuria Qualified Code(s): N30.01 - Acute cystitis with hematuria (5) COPD (chronic obstructive pulmonary disease) Qualifiers: COPD type: emphysema Emphysema type: unspecified Qualified Code(s): J43.9 - Emphysema, unspecified
[2018-07-02] MEDS ORDERED: Aspirin 81 MG TAB.CHEW PO SCH (09:00)
[2018-07-02] MEDS ORDERED: (Fluticasone/Vilanterol [Breo Ellipta 100-25 Mcg Inh]) IH SCH (09:00)
[2018-07-02] MEDS: *HR* HYDROcodone/Acet 5/325 mg TABLET PO PRN (09:00)
[2018-07-02] MEDS ORDERED: OLANZapine 5 MG TAB.RAPDIS PO SCH (09:00)
[2018-07-02] MEDS: Baclofen 10 MG TABLET PO SCH ×2 (09:00→13:48)
[2018-07-02] MEDS: Iron Polysaccharide Complex 150 MG CAPSULE PO SCH (09:01)
[2018-07-02] MEDS: Famotidine 20 MG TABLET PO SCH ×2 (09:01→16:58)
[2018-07-02] MEDS: Lactobacillus 1 EACH CAP.SPRINK PO SCH (09:02)
[2018-07-02] MEDS: Gabapentin 300 MG CAPSULE PO SCH ×2 (09:03→13:48)
[2018-07-02] MEDS: 0.9 % Sodium Chloride 1,000 ML IVC SCH (10:11)
--- NOTE | 2018-07-02 10:25 | Discharge Summary ---
<Irene Fofana - Last Filed: 07/02/18 17:47> Orders not resulted at time of discharge: Pending orders 07/01/18 13:30 Culture,Wound [RM] Routine 07/02/18 10:00 Culture,Blood [BC] Stat 07/02/18 10:05 Lactic Acid Stat 07/03/18 04:00 BMP [Basic Metabolic Panel] AM 0400 Complete Blood Count [HEME] AM 0400 07/04/18 04:00 BMP [Basic Metabolic Panel] AM 0400 Complete Blood Count [HEME] AM 0400 07/05/18 04:00 BMP [Basic Metabolic Panel] AM 0400 Complete Blood Count [HEME] AM 0400 07/06/18 04:00 BMP [Basic Metabolic Panel] AM 0400 Complete Blood Count [HEME] AM 0400 Date of Encounter: 07/02/18 Time of Encounter: 10:18 - Discharge Diagnosis (1) Osteomyelitis of coccyx Priority: Primary Status: Acute (2) Pressure ulcer of sacral region, stage 4 Priority: Secondary Status: Chronic (3) COPD (chronic obstructive pulmonary disease) Priority: Secondary Status: Chronic Qualifiers: COPD type: emphysema Emphysema type: unspecified Qualified Code(s): J43.9 - Emphysema, unspecified (4) Weakness of both lower extremities Priority: Secondary Status: Chronic (5) Tobacco use Priority: Secondary Status: Chronic (6) DVT prophylaxis Priority: Secondary Status: Acute Hospital course: Mr. Carrasco is a 52 year old male with history of osteomyelitis and weakness of bilateral lower extremities as a result of spinal surgery at [facility] in December 2017 who presented on 07/01/18 with fever. Initially the patient's source was unknown but given his extensive decubius ulcer and catheter it was believed to be UTI vs osteomyelitis. Workup including CBC revealed leukocytosis, tachycardia , and hypotension. He was started on vancomycin and zosyn. Surgery consulted who recommended transfer to [facility] due to his high level of aftercare needs after debridement and possibility of plastic surgery intervention. The patient declined immediate transfer to [facility] thus ID recommended discontinuance of antibiotics to proceed with IR guided biopsy and pathology. Overnight the patient became hypotensive and he responded well to a 1L bolus thus repeat lactate and blood cultures were drawn. Vancomycin/Zosyn were resumed. He is now amenable to transfer. Given another 1 L bolus prior to transport. He will be transferred to [facility]. He has been accepted by Dr. Lopez. All questions answered. The patient is stable for transfer. Discharge discussed with: patient Time spent discussing smoking cessation with patient: 3 to 10 minutes - Time Spent with Patient Total time spent providing and/or coordinating discharge services: Greater than 30 minutes - Discharge Medications Home Medications: Aspirin 81 mg PO DAILY tab.chew 12/30/17 [Rx] Albuterol Neb [Proventil Neb] 2.5 mg IH Q6H PRN 07/01/18 [History] Baclofen [Lioresal] 10 mg PO TID 07/01/18 [History] Dicyclomine [Bentyl] 10 mg PO DAILY 07/01/18 [History] Doxycycline Hyclate [Vibramycin] 100 mg PO BID 07/01/18 [History] Famotidine [Heartburn Prevention] 20 mg PO Q12H 07/01/18 [History] Fluticasone/Vilanterol [Breo Ellipta 100-25 Mcg INH] 1 puff IH DAILY 07/01/18 [ History] Gabapentin [Neurontin] 600 mg PO TID 07/01/18 [History] Heparin 5,000 unit SQ Q12HR 07/01/18 [History] Iron Polysaccharide Complex [Ferrex 150] 150 mg PO BID 07/01/18 [History] Lactobacillus Acidophilus [Acidophilus Lactobacillus] 2 cap PO BID 07/01/18 [ History] Nortriptyline [Pamelor] 25 mg PO HS 07/01/18 [History] OLANZapine [Zyprexa] 7.5 mg PO DAILY 07/01/18 [History] Polyethylene Glycol 3350 [MiraLAX Powder Bulk 17.9 Oz] 1 scoop PO DAILY [History] Tramadol HCl [Ultram] 50 mg PO Q8H PRN 07/01/18 [History] Valproic Acid (As Sodium Salt) [Valproic Acid] 500 mg PO HS 07/01/18 [History] metroNIDAZOLE [Flagyl] 500 mg PO TID 07/01/18 [History] Allergies/Adverse Reactions: 3 Allergy/AdvReac Type Severity Reaction Status Date / Time No Known Allergies Allergy Verified 04/02/17 06:02 Date of admission: 07/01/18 01:02 Primary care physician: Jayson Gutierrez Consults: 07/01/18 09:32 Consult to Wound Care [CONS] Routine Reason for Consult: multiple wounds Call Completed: Yes 07/01/18 11:06 Consult to Electrotherapist [CONS] Routine Reason for SW Consult: rtn wmp 07/01/18 12:21 Consult to Infectious Diseases [CONS] Routine Consulting Provider: Infectious Disease Catherine Reason for Consult: osteomyelitis Time Notified: 12:22 Call Completed: Yes 07/01/18 13:44 Consult to Surgery [CONS] Routine Consulting Provider: Surgery Catherine Surgical Reason for Consult: extensive wounds on buttocks and lower extremities Call Completed: Yes 07/01/18 18:24 Consult to Interventional Radiology [CONS] Routine Consulting Provider: Radiology Interventional Cols Reason for Consult: osteomyelitis, ID recommends IR guided biopsy/culture Call Completed: Yes 07/02/18 08:48 Consult to Occupational Therapy [CONS] Routine Comment: Evaluate, develop and implement POC Reason for Consult: pt needs pre-cert to rtn to [facility] Does patient have active BEDREST order?: No Is patient medically & hemodynamically stable?: Yes Consult to Physical Therapy [CONS] Routine Comment: Evaluate, develop and implement POC Reason for Consult: pts needs pre-cert to rtn to [facility] Does patient have active BEDREST order?: No Is patient medically & hemodynamically stable?: Yes Discharging clinician: Irene Fofana Anticipated date of discharge: 07/02/18 - Constitutional Vitals: Temp Pulse Resp BP Pulse Ox 97.6 F 112 18 91/53 99 07/02/18 08:29 07/02/18 08:29 07/02/18 08:29 07/02/18 08:29 07/02/18 08:29 General appearance: Present: A&O X 3, pleasant, no acute distress Exam: General: NAD. AAOx3 HEENT: PERRL/EOMI, MMM Cardiac: Regular rhythm, no murmur, +S1/S2. Tachycardic Pulmonary: CTA bilaterally, no wheezes, rales or rhonchi, equal chest expansion Abdomen: soft, nontender, BS noted, no guarding Integumentary: Extensive lumbosacral decubitus ulcers 4, largest one measuring 10 cm x 6 cm and approximately 1.5 cm in depth. No purulent drainage but foul- smelling. Extremities: Atrophied lower extremities Psych: Normal mood and affect - Patient Status Disposition: Transfer Intermediate Care Fac Condition: Fair Overall status at discharge: patient is not back to baseline - Discharge Instructions Follow Up With: Jayson Gutierrez, PAC [Primary Care Provider] - <Aftab Cornejo - Last Filed: 07/02/18 21:01> Orders not resulted at time of discharge: Pending orders 07/01/18 13:30 Culture,Wound [RM] Routine 07/02/18 10:00 Culture,Blood [BC] Stat Date of Encounter: 07/02/18 - Discharge Diagnosis (1) Sepsis Status: Acute Qualifiers: Sepsis type: sepsis due to unspecified organism Qualified Code(s): A41.9 - Sepsis, unspecified organism (2) Osteomyelitis of coccyx Status: Acute (3) Weakness of both lower extremities Status: Chronic (4) UTI (urinary tract infection) Status: Acute Qualifiers: Urinary tract infection type: acute cystitis Hematuria presence: with hematuria Qualified Code(s): N30.01 - Acute cystitis with hematuria (5) COPD (chronic obstructive pulmonary disease) Status: Chronic Qualifiers: COPD type: emphysema Emphysema type: unspecified Qualified Code(s): J43.9 - Emphysema, unspecified (6) DVT prophylaxis Status: Acute (7) Drug abuse, IV Status: Chronic (8) Tobacco use Status: Chronic (9) Pressure ulcer of sacral region, stage 4 Status: Chronic Hospital course: Mr. Carrasco is a 52 year old male - Time Spent with Patient Total time spent providing and/or coordinating discharge services: Date of admission: 07/01/18 01:02 Primary care physician: Jayson Gutierrez Consults: 07/01/18 09:32 Consult to Wound Care [CONS] Routine Reason for Consult: multiple wounds Call Completed: Yes 07/01/18 11:06 Consult to Electrotherapist [CONS] Routine Reason for SW Consult: rtn wmp 07/01/18 12:21 Consult to Infectious Diseases [CONS] Routine Consulting Provider: Infectious Disease Catherine Reason for Consult: osteomyelitis Time Notified: 12:22 Call Completed: Yes 07/01/18 13:44 Consult to Surgery [CONS] Routine Consulting Provider: Surgery Ewen Surgical Reason for Consult: extensive wounds on buttocks and lower extremities Call Completed: Yes 07/01/18 18:24 Consult to Interventional Radiology [CONS] Routine Consulting Provider: Radiology Interventional Cols Reason for Consult: osteomyelitis, ID recommends IR guided biopsy/culture Call Completed: Yes 07/02/18 08:48 Consult to Physical Therapy [CONS] Routine Comment: Evaluate, develop and implement POC Reason for Consult: pts needs pre-cert to rtn to [facility] Does patient have active BEDREST order?: No Is patient medically & hemodynamically stable?: Yes - Constitutional Vitals: Temp Pulse Resp BP Pulse Ox 97.7 F 100 18 96/52 99 07/02/18 15:08 07/02/18 15:08 07/02/18 15:08 07/02/18 15:08 07/02/18 15:08 - Attending Attestation I examined this patient and my medical decision-making was reviewed with the Resident Physician Dr. Vasquez. I agree with the documented findings, disposition and treatment plan as described except to the extent set forth below.
[2018-07-02] MEDS: Piperacillin/Tazobactam 3.375 GM in 0.9 % Sodium Chloride Mini Bag 100 ML IVPB SCH ×2 (11:00→16:57)
--- NOTE | 2018-07-02 11:20 | Infectious Disease Progress No ---
Date of Encounter: 07/02/18 Time of Encounter: 09:30 - Assessment and Plan (1) Sepsis Current Visit: Yes Status: Acute The patient had two SIRS criteria on admission plus fevers documented at the shelter. Etiology unclear. He does have what appears to be osteomyelitis of the coccyx, but I am unsure if this is new osteomyelitis or findings left over from his previously treated osteomyelitis. He does report some upper respiratory tract infection symptoms that are improved. White blood cell count has normalized. Tachycardia noted this morning. Afebrile. Blood pressure is a little low, but could be secondary to narcotic pain medication. Blood culture obtained 1 set emergency department is NGTD. Repeat blood cultures 2 sets now. Check lactic acid. IV fluids per the primary team. Antibiotics re-started per the primary team this AM. Qualifiers: Sepsis type: sepsis due to unspecified organism Qualified Code(s): A41.9 - Sepsis, unspecified organism (2) Osteomyelitis of coccyx Current Visit: Yes Status: Acute Location: Mid coccyx per CT of L-spine. Cause of organism: Unclear. Unsure if this is acute osteomyelitis versus chronic. The patient has received 12 weeks of various IV antibiotics for osteomyelitis. Previously, cultures were positive for Morganella, Klebsiella, yeast, and Pseudomonas. He received 6 weeks of IV ertapenem and fluconazole. He then received an additional 6 weeks of IV cefepime and by mouth Flagyl. He was also given oral doxycycline for chronic oral suppressive therapy or the infection in his back due to the presence of hardware. We have recommended transfer to [facility] for further evaluation by plastic surgery and wound care. The patient initially declined, but is now agreeable to transfer. ESR is elevated at 85 with a CRP of 46. Wound culture has been obtained and is pending Antibiotics started this morning due to concern that the patient's blood pressure was low and his heart rate was elevated. Consult IR to assist with CT-guided biopsy. Send specimens for culture, aerobic and anaerobic, and pathology. Continue Vancomycin IV. Pharmacy to dose. Goal trough ~15. Continue Zosyn 3.375 grams IV Q8H. Duration of treatment depends on the clinical picture. Monitor renal function and for drug toxicity and dose-adjust antibiotics (3) Pressure ulcer of sacral region, stage 4 Current Visit: Yes Status: Chronic Location: Sacrum/coccyx. Etiology: Likely secondary from poor offloading and lack of wound care. Wound care team consulted and recommend general surgery to evaluate. General surgery recommends transfer to [facility] for plastic surgery and wound care evaluation given the extent of his wounds. Patient initially declined, but is now agreeable to transfer. Dressing changes per the wound care/general surgery teams. (4) Weakness of both lower extremities Current Visit: Yes Status: Chronic Residual from previous surgeries. Recommend PT/OT to evaluate. (5) Tobacco use Current Visit: Yes Status: Chronic (6) Hepatitis C Current Visit: No Status: Chronic Secondary to previous history of IVDU. Reports last IVDU in November 2017. Consider checking HIV status. Qualifiers: Viral hepatitis chronicity: unspecified Hepatic coma status: without hepatic coma Qualified Code(s): B19.20 - Unspecified viral hepatitis C without hepatic coma (7) Pressure ulcer of both feet, unstageable Current Visit: Yes Status: Acute Location: Bilateral heels. Likely pressure-related due to the patient's paresis. Wound care to evaluate. May need to consider Podiatry consult for possible debridement. Also consider imaging of the bilateral feet. The patient was unable to tolerate evaluation of the left foot due to pain in his legs, but the right foot ulcer is necrotic. Recommend aggressive wound care and offloading. - Subjective Interval history: Patient seen and examined. No acute events noted overnight. Patient states he feels a little better today. Denies fevers, chills, or rigors. Denies chest pain , shortness of breath, or cough. Denies nausea, vomiting, or diarrhea. Had a BM yesterday. Willis catheter remains patent, draining clear yellow urine. He states he feels a little hungry this morning but did not get any breakfast. Denies oral thrush or new skin lesions. Complains of chronic pain in his back and muscle spasms to the BLE. Per the primary team, concern that the patient is tachycardic and hypotensive. WBC and lactic acid remain normal. Clinically, the patient does not appear toxic. He did receive pain medication which could have impacted his blood pressure. Antibiotics and fluid bolus were initiated by the primary team this morning. The patient is now agreeable to transfer to [facility]. Infect Dis PN-Objective Data - Labs CBC & Chem 7: 07/02/18 04:48 07/02/18 04:48 Labs: Laboratory Results - last 24 hr 0807/02/18 07/02/18 13:30 04:48 04:48 WBC 9.6 RBC 3.38 L Hgb 9.2 L Hct 29.1 L MCV 86.1 MCH 27.2 L MCHC 31.6 RDW 16.6 H Plt Count 298 MPV 8.5 L Immature Gran % 0.3 Seg Neutrophils % 60.2 Lymphocytes % 27.5 Monocytes % 8.9 Eosinophils % 2.8 Basophils % 0.3 Neutrophils # 5.8 Lymphocytes # 2.6 Monocytes # 0.9 Eosinophils # 0.3 Basophils # 0.0 Sodium 134 L Potassium 4.0 Chloride 104 Carbon Dioxide 23 BUN 6 Creatinine 0.44 L Est GFR ( Amer) > 60 Est GFR (Non-Af Amer) > 60 BUN/Creatinine Ratio 14 Glucose 91 Calculated Osmolality 275 L Lactic Acid Calcium 8.8 Urine Color Yellow Urine Clarity Clear Urine pH 6.5 Ur Specific [place] > 1.030 H Urine Protein Negative Urine Glucose (UA) Normal Urine Ketones Negative Urine Blood Negative Urine Nitrite Negative Urine Bilirubin Negative Urine Urobilinogen Normal Ur Leukocyte Esterase Negative 07/02/18 10:05 WBC RBC Hgb Hct MCV MCH MCHC RDW Plt Count MPV Immature Gran % Seg Neutrophils % Lymphocytes % Monocytes % Eosinophils % Basophils % Neutrophils # Lymphocytes # Monocytes # Eosinophils # Basophils # Sodium Potassium Chloride Carbon Dioxide BUN Creatinine Est GFR ( Amer) Est GFR (Non-Af Amer) BUN/Creatinine Ratio Glucose Calculated Osmolality Lactic Acid 1.2 Calcium Urine Color Urine Clarity Urine pH Ur Specific [place] Urine Protein Urine Glucose (UA) Urine Ketones Urine Blood Urine Nitrite Urine Bilirubin Urine Urobilinogen Ur Leukocyte Esterase Cultures: Cultures 07/02/18 10:00 Blood Culture - Preliminary Peripheral Venipuncture Culture is incubating and being continuously monitored for growth. Final report to follow. 07/02/18 10:05 Blood Culture - Preliminary Peripheral Venipuncture Culture is incubating and being continuously monitored for growth. Final report to follow. Serology 07/01/18 Range/Units 13:30 Urine Color Yellow (Yellow) Urine Clarity Clear (Clear) Urine pH 6.5 (5.0-8.0) pH Units Ur Specific [place] > 1.030 H (1.010-1.025) Urine Protein Negative (Neg-Trace) mg/dL Urine Glucose (UA) Normal (Normal) mg/dL Urine Ketones Negative (Negative) mg/dL Urine Blood Negative (Negative) Urine Nitrite Negative (Negative) Urine Bilirubin Negative (Negative) Urine Urobilinogen Normal (Normal) mg/dL Ur Leukocyte Esterase Negative (Negative) Exam - Constitutional Vitals: Temp Pulse Resp BP Pulse Ox 98.0 F 90 18 114/70 98 07/02/18 10:20 07/02/18 10:20 07/02/18 10:20 07/02/18 10:20 07/02/18 10:20 General appearance: average body habitus, cooperative, no acute distress - Head Head exam: Present: atraumatic, normal inspection, normocephalic - Eye Eye exam: Present: EOMI, normal appearance, PERRL Pupils: Present: normal accommodation - ENT ENT exam: Present: mucous membranes moist - Neck Neck exam: Present: normal inspection - Respiratory Respiratory exam: Present: CTAB. Absent: rales, respiratory distress, rhonchi, wheezes - Cardiovascular Cardiovascular exam: Present: +S1, +S2, tachycardia. Absent: irregular rhythm - GI/Abdominal GI/Abdominal exam: Present: normal bowel sounds, soft. Absent: distended, tenderness Additional comments: Willis catheter noted to be draining clear yellow urine. - Extremities Exam Extremities exam: Absent: joint swelling, pedal edema, tenderness Additional comments: Heel protector boots noted to the bilateral feet. Right foot dressing removed and large unstageable pressure ulcer noted to the right heel with 100% eschar. No tenderness of fluctuance noted. Patient unable to tolerate removal of the left foot dressing at this time. - Back Exam Back exam: Absent: normal inspection (Dressings noted to the decubitus ulcers appear C/D/I. Patient's pain prevents him from allowing me complete assessment of the wound. Foul odor noted.) - Neurological Exam Neurological exam: Present: alert, oriented X3. Absent: strengths equal and symetr throughout (Weakness noted to the BLE, but GRANT x 4 on command.) - Psychiatric Psychiatric exam: Present: normal affect, normal mood - Skin Skin exam: Present: dry, intact, normal color, warm Consult Discharge Plan - Plan Referrals: Jayson Gutierrez, PAC [Primary Care Provider] - - Attending Attestation I examined this patient and my medical decision-making was reviewed with the awilda martin CNP. I agree with the documented findings, disposition and treatment plan as described except to the extent set forth below.
[2018-07-02 14:11] LABS: INR 1.3; Prothrombin Time 14.1 Seconds (9.4-12.1)
[2018-07-02 15:12] VITALS: BP 96/52
== END 2018-07-02 17:05 ==
LOC: EMEROOARM 21:38 → 2ANU 21:38 → SUATTDRO 07-01 01:02 → 2ANU 07-01 01:33
PROVIDERS: ADMIT Family Medicine; ATTEND Student in an Organized Health Care Education/Training Program

== ENCOUNTER 2018-07-27 22:03 | Inpatient (IN) ==
[2018-07-27] MEDS ORDERED: Isovue-370 500 ML INFUS..BTL IV ONE (22:37)
[2018-07-27] MEDS ORDERED: Vancomycin 1,000 MG in D5% in Water 250 ML IVPB ONE (22:41)
[2018-07-27] MEDS ORDERED: Piperacillin/Tazobactam 3.375 GM in 0.9 % Sodium Chloride Mini Bag 100 ML IVPB ONE (22:41)
[2018-07-27] MEDS ORDERED: Acetaminophen 325 MG TABLET PO ONE (22:41)
[2018-07-27] MEDS ORDERED: 0.9 % Sodium Chloride 1,000 ML IVC ONE (22:41)
[2018-07-27 23:32] LABS: Basophils # 0.1 K/mcL (0.0-0.2); Basophils % 0.5 %; Eosinophils # 0.8 K/mcL (0.0-0.6); Eosinophils % 5.7 %; Hematocrit 27.6 % (37.5-50.1); Hemoglobin 8.7 g/dL (12.9-16.9); Immature Granulocytes % 0.7 % (0-4); Lymphocytes # 3.1 K/mcL (0.6-4.6); Mean Corpuscular HGB Conc 31.5 g/dL (31.6-35.5); Mean Corpuscular Hemoglobin 27.9 pg (28.0-33.3); Mean Corpuscular Volume 88.5 fL (83.0-100.0); Mean Platelet Volume 8.3 fL (9.4-12.4); Monocytes # 0.8 K/mcL (0.0-1.3); Monocytes % 6.1 %; Neutrophils # 8.5 K/mcL (1.6-8.9); Platelet Count 355 K/mcL (140-400); Red Blood Count 3.12 M/mcL (4.19-5.50); Red Cell Distribution Width 15.8 % (11.5-14.5)
[2018-07-27 23:52] LABS: BUN/Creatinine Ratio 33 (6-26); Blood Urea Nitrogen 17 mg/dL (6-20); Calcium 9.7 mg/dL (8.6-10.3); Carbon Dioxide 25 mEq/L (23-29); Chloride 99 mEq/L (98-107); Glucose 112 mg/dL (70-105); Osmolality,Calculated 274 (280-300); Potassium 4.3 mEq/L (3.5-5.1); Sodium 131 mEq/L (136-145); eGFR For Non-African Americans > 60 (> 60)
[2018-07-28 00:10] LABS: Bilirubin,Urine Negative (Negative); Blood,Urine Moderate (Negative); Clarity,Urine Cloudy (Clear); Color,Urine Yellow (Yellow); Glucose,Urine (UA) Normal (Normal); Ketones,Urine Negative (Negative); Leukocyte Esterase,Urine Negative (Negative); Nitrite,Urine Negative (Negative); Protein,Urine Trace mg/dL (Neg-Trace); Specific Gravity,Urine 1.011 (1.010-1.025); Urobilinogen,Urine Normal (Normal)
[2018-07-28 00:12] LABS: Bacteria,Urine None Seen per hpf (None-Few); Hyaline Casts,Urine None Seen per lpf (None-Few); Squamous Epithelial Cell,Urine Few per lpf (None-Few); WBC,Urine 0-3 per hpf (0-3)
--- NOTE | 2018-07-28 00:57 | Emergency Department Note ---
Disposition Clinical Impression: Fever, Tachycardia, Fatigue Disposition: Admitted As Inpatient Condition: Fair Fever HPI - General Chief Complaint: ED Fever Stated Complaint: elevated temp Time Seen by Provider: 07/27/18 22:07 Source: EMS Mode of arrival: ambulatory Limitations: no limitations, physical limitation Nursing Notes Reviewed: Yes Vital Signs Reviewed: Yes - History of Present Illness HPI Narrative: 52-year-old male presents emergency Department with concerns of fever at the nursing care facility and fatigue. Patient is paraplegic from the waist down and lives at an extended care facility full-time. He apparently was concerned about possible shortness of breath and a cough at the nursing facility, he has not coughed during my evaluation and is satting 100%. Patient has a very large decubitus ulcer which she states is chronic but is unsure if it has been worsening. Patient has a chronic Willis which is filled with dark cloudy urine. Patient is a poor historian and is unable to give me a full history regarding his case presentation. - Related Data Home Medications Medication Instructions Recorded Confirmed Albuterol Neb [Proventil Neb] 2.5 mg IH Q6H PRN 07/01/18 07/28/18 Baclofen [Lioresal] 5 mg PO TID 07/01/18 07/28/18 Doxycycline Hyclate [Vibramycin] 100 mg PO BID 07/01/18 07/28/18 Famotidine [Heartburn Prevention] 20 mg PO Q12H 07/01/18 07/28/18 Gabapentin [Neurontin] 400 mg PO TID 07/01/18 07/28/18 Heparin 5,000 unit SQ Q8H 07/01/18 07/28/18 Iron Polysaccharide Complex 150 mg PO BID 07/01/18 07/28/18 [Ferrex 150] Nortriptyline [Pamelor] 25 mg PO HS 07/01/18 07/28/18 Tramadol HCl [Ultram] 50 mg PO Q8H PRN 07/01/18 07/28/18 Valproic Acid (As Sodium Salt) 500 mg PO Q8H 07/01/18 07/28/18 [Valproic Acid] Ascorbic Acid [Vitamin C] 500 mg PO DAILY 07/28/18 07/28/18 Budesonide/Formoterol 80/4.5 2 puff IH BID 07/28/18 07/28/18 [Symbicort 80/4.5] Ertapenem [INVanz] 1,000 mg IVPB DAILY 07/28/18 07/28/18 Lactulose [Enulose] 30 gm PO TIDWM 07/28/18 07/28/18 Lidocaine [Aspercreme] 1 each TP DAILY 07/28/18 07/28/18 Melatonin [Melatin] 3 mg PO HS 07/28/18 07/28/18 Multivitamin [Multivitamins] 1 each PO DAILY 07/28/18 07/28/18 OLANZapine [Zyprexa] 10 mg PO QPM 07/28/18 07/28/18 Zinc Sulfate 220 mg PO BID 07/28/18 07/28/18 Previous Rx's Medication Instructions Recorded Aspirin 81 mg PO DAILY tab.chew 12/30/17 Allergies Allergy/AdvReac Type Severity Reaction Status Date / Time No Known Allergies Allergy Verified 07/24/18 18:38 All systems ED: reviewed and negative except as stated. Review of Systems: As Per HPI Fever PMH - Past Medical History Medical history: Reports: COPD, GERD, hepatitis, other Surgical history: Reports: non-contributory Psychiatric history: Reports: bipolar, schizophrenia - Social History Smoking Status: Current every day smoker Alcohol use: Reports: none Drug use: Reports: none Physical Exam General: Alert and in no acute distress Skin: Warm, dry, large sacral decubitus ulcer Head: Normocephalic and atraumatic Neck: Supple, trachea midline and no tenderness Cardiovascular: Tachycardia, no murmur, normal perfusion Respiratory: Rhonchi in the bilateral lower lung arnold. Musculoskeletal: Paraplegic of lower extremities, moving upper extremities well GI: Soft, nontender, nondistended. Bowel sounds present Neuro: Answering questions with slow and slurred speech although he answers them correctly. Moving upper extremities well, paraplegic of lower extremities - General Limitations: physical limitation General appearance: lethargic Course Vital Signs Temperature 98.3 F 07/27/18 22:12 Pulse Rate 122 07/27/18 22:12 Respiratory Rate 16 07/27/18 22:12 Blood Pressure 103/61 07/27/18 22:12 O2 Sat by Pulse Oximetry 99 07/27/18 22:12 Temperature 97.9 F 07/28/18 12:02 Pulse Rate 114 07/28/18 12:02 Respiratory Rate 17 07/28/18 12:02 Blood Pressure 88/57 07/28/18 12:02 O2 Sat by Pulse Oximetry 100 07/28/18 12:02 Oxygen Delivery Oxygen Delivery Room Air Fever - MDM Narrative Medical decision making narrative: Patient likely has source of infection of decubitus ulcer. Patient started on antibiotics after the initial evaluation. He has been increasingly fatigued at the [facility] facility. Laboratory evaluation and imaging pending at this time. Patient care transferred to Dr. Don pending further evaluation and likely admission to the hospital - Medical Records Medical records reviewed: Yes I reviewed the patient's medical records. - Lab Data Lab results reviewed: Yes I reviewed the patient's lab results. Result diagrams: 07/27/18 23:21 07/27/18 23:21 Lab Results 07/27/18 07/27/18 07/27/18 Range/Units 23:21 23:21 23:45 WBC 13.3 H (4.3-11.1) K/mcL RBC 3.12 L (4.19-5.50) M/mcL Hgb 8.7 L (12.9-16.9) g/dL Hct 27.6 L (37.5-50.1) % MCV 88.5 (83.0-100.0) fL MCH 27.9 L (28.0-33.3) pg MCHC 31.5 L (31.6-35.5) g/dL RDW 15.8 H (11.5-14.5) % Plt Count 355 (140-400) K/mcL MPV 8.3 L (9.4-12.4) fL Immature Gran % 0.7 (0-4) % Seg Neutrophils % 64.0 % Lymphocytes % 23.0 % Monocytes % 6.1 % Eosinophils % 5.7 % Basophils % 0.5 % Neutrophils # 8.5 (1.6-8.9) K/mcL Lymphocytes # 3.1 (0.6-4.6) K/mcL Monocytes # 0.8 (0.0-1.3) K/mcL Eosinophils # 0.8 H (0.0-0.6) K/mcL Basophils # 0.1 (0.0-0.2) K/mcL Sodium 131 L (136-145) mEq/L Potassium 4.3 (3.5-5.1) mEq/L Chloride 99 (98-107) mEq/L Carbon Dioxide 25 (23-29) mEq/L BUN 17 (6-20) mg/dL Creatinine 0.51 L (0.70-1.30) mg/dL Est GFR ( Amer) > 60 (> 60) Est GFR (Non-Af Amer) > 60 (> 60) BUN/Creatinine Ratio 33 H (6-26) Glucose 112 H (70-105) mg/dL Calculated Osmolality 274 L (280-300) Calcium 9.7 (8.6-10.3) mg/dL Urine Color Yellow (Yellow) Urine Clarity Cloudy A (Clear) Urine pH 6.0 (5.0-8.0) pH Units Ur Specific [place] 1.011 (1.010-1.025) Urine Protein Trace (Neg-Trace) mg/dL Urine Glucose (UA) Normal (Normal) mg/dL Urine Ketones Negative (Negative) mg/dL Urine Blood Moderate H (Negative) Urine Nitrite Negative (Negative) Urine Bilirubin Negative (Negative) Urine Urobilinogen Normal (Normal) mg/dL Ur Leukocyte Esterase Negative (Negative) Urine Microscopic RBC 5-15 H (0-3) per hpf Urine Microscopic WBC 0-3 (0-3) per hpf Ur Squamous Epith Cells Few (None-Few) per lpf Urine Bacteria None Seen (None-Few) per hpf Hyaline Casts None Seen (None-Few) per lpf Ur Culture Indicated? NO (NO) S.B.A.R. - S.B.A.R. Transition of Care: Patient care transferred to Dr. Don at 0100 pending imaging and likely admission to hospital
[2018-07-28] MEDS ORDERED: 0.9 % Sodium Chloride 1,000 ML IVC SCH (02:00)
[2018-07-28] MEDS: 0.9 % Sodium Chloride 1,000 ML IVC SCH ×3 (04:26→18:23)
[2018-07-28] MEDS: Gabapentin 400 MG CAPSULE PO SCH ×4 (11:17→21:11)
[2018-07-28] MEDS ORDERED: Naloxone 0.4 MG/ML INJ IVP PRN (14:44)
[2018-07-28] MEDS ORDERED: Piperacillin/Tazobactam 3.375 GM in 0.9 % Sodium Chloride Mini Bag 100 ML IVPB SCH (16:00)
--- NOTE | 2018-07-28 16:14 | Internal Med History&Physical ---
Date of Encounter: 07/28/18 Time of Encounter: 10:00 Internal Medicine - H&P: HPI Chief complaint: Fevers Admitted From: Long-term Nursing Facility Plans for Post Hospital Care: Transfer [facility] History of present illness: Patient is a 52-year-old male with past medical history significant for spinal stenosis and paraplegic, mood disorder and hepatitis C who was recently discharged on 07/02/18 for the same symptoms of fever and found to have acute versus chronic sacral osteomyelitis and was transferred to [facility] by the recommendations of general surgery due to possible intervention from plastic surgery. Patient again presents from the [facility] with fevers and in the ER CT of the abdomen/ pelvis showed a large sacral decubitus ulcer with underlying osseous irregularity involving the sacrum and coccyx, (possibly the left ischium and left greater trochanter as well) suggesting osteomyelitis. Patient with a slight white blood cell count of 13.3 and afebrile. Patients sacral wound cultures last time (07/01/18) grew Proteus mirabilis and Morganella which were both only sensitive to ertapenem and tobramycin. Patient will be admitted to medical surgical floor with a general surgery and infectious disease consult for evaluation. Past Med Surg Social Fam HX - Past Medical History Medical history: COPD, GERD, hepatitis, other Additional medical history: spinal stenosis, anemia, encephalopathy, GI hemorrhage,MRSA, osteomyelitis, pressure ulcer Psychiatric history: bipolar, schizophrenia - Past Surgical History Surgical History: non-contributory Additional surgical history: back/spine surgery, evacuation of epidural abscess , I&D, C5-T1 laminectomy December 2017 - Social History Smoking Status: Current every day smoker Smokeless Tobacco Status: No Alcohol use: none Drug use: none - Additional Family History Additional family history: Noncontributory Internal Medicine - H&P: Meds Aspirin 81 mg PO DAILY tab.chew 12/30/17 [Rx] Albuterol Neb [Proventil Neb] 2.5 mg IH Q6H PRN 07/01/18 [History] Baclofen [Lioresal] 5 mg PO TID 07/01/18 [History] Doxycycline Hyclate [Vibramycin] 100 mg PO BID 07/01/18 [History] Famotidine [Heartburn Prevention] 20 mg PO Q12H 07/01/18 [History] Gabapentin [Neurontin] 400 mg PO TID 07/01/18 [History] Heparin 5,000 unit SQ Q8H 07/01/18 [History] Iron Polysaccharide Complex [Ferrex 150] 150 mg PO BID 07/01/18 [History] Nortriptyline [Pamelor] 25 mg PO HS 07/01/18 [History] Tramadol HCl [Ultram] 50 mg PO Q8H PRN 07/01/18 [History] Valproic Acid (As Sodium Salt) [Valproic Acid] 500 mg PO Q8H 07/01/18 [History] Ascorbic Acid [Vitamin C] 500 mg PO DAILY 07/28/18 [History] Budesonide/Formoterol 80/4.5 [Symbicort 80/4.5] 2 puff IH BID 07/28/18 [History ] Ertapenem [INVanz] 1,000 mg IVPB DAILY 07/28/18 [History] Lactulose [Enulose] 30 gm PO TIDWM 07/28/18 [History] Lidocaine [Aspercreme] 1 each TP DAILY 07/28/18 [History] Melatonin [Melatin] 3 mg PO HS 07/28/18 [History] Multivitamin [Multivitamins] 1 each PO DAILY 07/28/18 [History] OLANZapine [Zyprexa] 10 mg PO QPM 07/28/18 [History] Zinc Sulfate 220 mg PO BID 07/28/18 [History] 3 Allergy/AdvReac Type Severity Reaction Status Date / Time No Known Allergies Allergy Verified 07/24/18 18:38 All Systems PM: A 10-system review of systems was performed and is negative for pertinent findings except as documented above in the HPI. - Constitutional Vitals: Temp Pulse Resp BP Pulse Ox 97.8 F 102 12 130/72 100 07/28/18 16:03 07/28/18 16:03 07/28/18 16:03 07/28/18 16:03 07/28/18 16:03 General appearance: Present: A&O X 3, no acute distress Exam: As below - Eye Eye exam: Present: normal appearance - ENT ENT exam: Present: mucous membranes moist - Respiratory Respiratory exam: Present: CTAB. Absent: accessory muscle use, rales, rhonchi, wheezes - Cardiovascular Cardiovascular exam: Present: RRR, +S1, +S2. Absent: diastolic murmur, gallop, rubs, systolic murmur - GI/Abdominal GI/Abdominal exam: Present: soft - Extremities Exam Extremities exam: Absent: pedal edema - Neurological Exam Neurological exam: Present: alert - Psychiatric Psychiatric exam: Present: normal mood - Skin Skin exam: Present: erythema (Patient with large decubitus sacral ulcer which is packed with surrounding erythematous rim) Internal Med - H&P Results - Labs CBC & Chem 7: 07/27/18 23:21 07/27/18 23:21 - Impressions ITS Impressions Abdomen/Pelvis CT 07/28/18 22:38 IMPRESSION: Large sacral decubitus ulcer with underlying osseous irregularity involving the sacrum and coccyx, (possibly the left ischium and left greater trochanter as well) suggesting osteomyelitis. Circumferential urinary bladder wall thickening may be seen with cystitis. Nondependent foci of gas are presumably from Willis catheterization, although may also be seen in the setting of infection. Large colonic stool volume without evidence of obstruction. Query constipation. Foci of gas within the right periumbilical ventral abdominal soft tissues are presumably related to medication administration. No overlying skin thickening. D/ / Greg Stevenson / Greg Stevenson Interpreting Provider: Greg Stevenson - Assessment and plan (1) Fever Current Visit: Yes Status: Acute Assessment and plan: Patient presents for ECF due to fevers although has been afebrile so far since admission. Suspect fevers could be secondary to sacral osteomyelitis and management as below Qualifiers: Encounter type: initial encounter Qualified Code(s): T88.3XXA - Malignant hyperthermia due to anesthesia, initial encounter (2) Osteomyelitis of coccyx Current Visit: No Status: Acute Assessment and plan: Patient was recently discharged on 07/02/18 for the same symptoms of fever and found to have acute versus chronic sacral osteomyelitis and was transferred to [facility] by the recommendations of general surgery due to possible intervention from plastic surgery. CT of the abdomen/pelvis showed a large sacral decubitus ulcer with underlying osseous irregularity involving the sacrum and coccyx, (possibly the left ischium and left greater trochanter as well) suggesting osteomyelitis. Patients sacral wound cultures last time (07/01/18) grew Proteus mirabilis and Morganella which were both only sensitive to ertapenem and tobramycin. Infectious disease consulted with recommendations to start patient on ertapenem and will await general surgery was recommendations for potential debridement. (3) Pressure ulcer of sacral region, stage 4 Current Visit: No Status: Chronic Assessment and plan: Patient with sacral ulcer and concerns for osteomyelitis as above. Wound care consulted and appreciate recommendations (4) Pressure ulcer of both feet, unstageable Current Visit: No Status: Acute Assessment and plan: Wound care consulted and appreciate recommendations (5) Hepatitis C Current Visit: No Status: Chronic Assessment and plan: Suspect secondary to history of IV drug use Patient with a history of IV drug use in November 2017 Qualifiers: Viral hepatitis chronicity: unspecified Hepatic coma status: without hepatic coma Qualified Code(s): B19.20 - Unspecified viral hepatitis C without hepatic coma (6) Mood disorder Current Visit: Yes Status: Acute Assessment and plan: Continue home medications (7) Tobacco use Current Visit: No Status: Chronic Assessment and plan: Smoking cessation (8) DVT prophylaxis Current Visit: No Status: Acute Assessment and plan: lovenox subcutaneous - Time Spent With Patient Total time spent is greater than 50% in coordination of care (as documented) at patient's floor/unit and/or counseling patient:
[2018-07-28] MEDS ORDERED: Albuterol 2.5 MG/3 ML NEBULIZER IH PRN (18:05)
[2018-07-28] MEDS ORDERED: traMADol 50 MG TABLET PO PRN (18:05)
[2018-07-28] MEDS: traMADol 50 MG TABLET PO PRN ×2 (18:22→21:09)
[2018-07-28] MEDS: Budesonide/Formoterol 80/4.5 MDI IH SCH (20:47)
[2018-07-28] MEDS ORDERED: Ertapenem 1,000 MG in 0.9 % Sodium Chloride Mini Bag 100 ML IVPB SCH (21:00)
[2018-07-28] MEDS: Baclofen 10 MG TABLET PO SCH (21:09)
[2018-07-28] MEDS: Iron Polysaccharide Complex 150 MG CAPSULE PO SCH (21:09)
[2018-07-28] MEDS: Melatonin 3 MG TABLET PO SCH (21:10)
[2018-07-28] MEDS: Zinc Sulfate 220 MG CAPSULE PO SCH (21:10)
[2018-07-28] MEDS: Famotidine 20 MG TABLET PO SCH (21:13)
[2018-07-28] MEDS: Valproic Acid 250 MG CAPSULE PO SCH (22:50)
[2018-07-29] MEDS: *HR* Heparin 5,000 UNIT/ML VIAL SQ SCH ×4 (00:30→22:07)
[2018-07-29] MEDS: 0.9 % Sodium Chloride 1,000 ML IVC SCH ×2 (04:42→14:33)
[2018-07-29 05:06] LABS: Hematocrit 23.9 % (37.5-50.1); Hemoglobin 7.3 g/dL (12.9-16.9); Mean Corpuscular HGB Conc 30.5 g/dL (31.6-35.5); Mean Corpuscular Hemoglobin 26.9 pg (28.0-33.3); Mean Corpuscular Volume 88.2 fL (83.0-100.0); Mean Platelet Volume 8.2 fL (9.4-12.4); Platelet Count 286 K/mcL (140-400); Red Blood Count 2.71 M/mcL (4.19-5.50); Red Cell Distribution Width 16.2 % (11.5-14.5)
[2018-07-29 05:22] LABS: BUN/Creatinine Ratio 31 (6-26); Blood Urea Nitrogen 16 mg/dL (6-20); Calcium 8.4 mg/dL (8.6-10.3); Carbon Dioxide 30 mEq/L (23-29); Chloride 105 mEq/L (98-107); Glucose 103 mg/dL (70-105); Osmolality,Calculated 287 (280-300); Potassium 3.9 mEq/L (3.5-5.1); Sodium 138 mEq/L (136-145); eGFR For Non-African Americans > 60 (> 60)
[2018-07-29] MEDS: Valproic Acid 250 MG CAPSULE PO SCH ×3 (05:44→22:07)
[2018-07-29] MEDS: Famotidine 20 MG TABLET PO SCH ×2 (05:44→18:49)
[2018-07-29] MEDS ORDERED: *HR* Enoxaparin 40 MG/0.4 ML SYRINGE SQ SCH (06:00)
[2018-07-29] MEDS: Zinc Sulfate 220 MG CAPSULE PO SCH ×2 (10:06→22:08)
[2018-07-29] MEDS: Baclofen 10 MG TABLET PO SCH ×3 (10:06→22:07)
[2018-07-29] MEDS: Iron Polysaccharide Complex 150 MG CAPSULE PO SCH ×2 (10:06→22:08)
[2018-07-29] MEDS: Ertapenem 1,000 MG in 0.9 % Sodium Chloride Mini Bag 100 ML IVPB SCH (10:06)
[2018-07-29] MEDS: Aspirin 81 MG TAB.CHEW PO SCH (10:07)
[2018-07-29] MEDS: Gabapentin 400 MG CAPSULE PO SCH ×4 (10:07→22:08)
[2018-07-29] MEDS: Multivit/Ca/Min/Fe/FA 1 TAB TABLET PO SCH (10:07)
[2018-07-29] MEDS: Ascorbic Acid 500 MG TABLET PO SCH (10:07)
[2018-07-29] MEDS: Lactulose Oral Soln 20 GM/30 ML UDC PO SCH ×3 (10:08→15:44)
[2018-07-29] MEDS: Budesonide/Formoterol 80/4.5 MDI IH SCH ×2 (10:36→19:19)
[2018-07-29] MEDS: Trolamine Salicylate/Aloe Vera 35.4 GM TUBE TP SCH (14:33)
--- NOTE | 2018-07-29 15:00 | General Surgery Consult Note ---
Date of Encounter: 07/29/18 Time of Encounter: 14:54 Assessment and Plan (1) Pressure ulcer of sacral region, stage 4 Current Visit: Yes Status: Chronic Continue current wound care orders. No acute surgical intervention indicated. No debridement indicated. Can follow-up in wound care one week after d/c (first available), (2) Osteomyelitis of coccyx Current Visit: Yes Status: Acute see assessment and plan above (3) Pressure ulcer of both feet, unstageable Current Visit: Yes Status: Acute Daily wound care feet/ankle: apply gentamycin ointment to eschar. Then apply santyl sheree thick. Cover with a saline moistened gauze. Cover with a dry dressing. Tape to secure. Pressure reduction booties. pressure reduction mattress History of Present Illness Consult date: 07/28/18 (Dr. Mathieu Malloy) Reason for consult: wound care (possible osteomyolitis; possible debridement) Requesting physician: Lj Ramos History of present illness: Surgery has been consulted for recommendations regarding wound care and/or possible osteomyolitis. Past medical ,surgical, and social history reviewed per EMR and updated accordingly. Pt presented from skilled nursing on 07/28/2018 d/t concerns of fever at the skilled nursing. He is know paraplegic and most recently admitted then transferred to [facility] in June 2018. At that time he underwent a diverting colostomy d/t severity of osteomyolitis and decubiti. He reports he was d.c.'d back to ECF on 30 days of doxycycline. Pt reports he is adherent to turning recommendations, but review of chart shows non-adherence. He is somewhat of a poor historian making subjective information difficult and limited. Most information is obtained via chart review as noted above. He states he is unable to remember the names of procedures or diagnoses. Presently he denies discomfort. Past Med Surg Social Fam HX - Past Medical History Source: old records reviewed Medical history: COPD, GERD, hepatitis, other Additional medical history: spinal stenosis, anemia, encephalopathy, GI hemorrhage,MRSA, osteomyelitis, pressure ulcer Psychiatric history: bipolar, schizophrenia - Past Surgical History Additional surgical history: back/spine surgery, evacuation of epidural abscess , I&D, C5-T1 laminectomy December 2017 - Social History Smoking Status: Current every day smoker Smokeless Tobacco Status: No Alcohol use: none Drug use: none Occupational status: unemployed Current living situation: [facility] Activity Level: Bed bound Recent Out of Country Travel Within the Last 8 Weeks: No Exposure or Possible Exposure to Illness During Travel: No Medications and Allergies Aspirin 81 mg PO DAILY tab.chew 12/30/17 [Rx] Albuterol Neb [Proventil Neb] 2.5 mg IH Q6H PRN 07/01/18 [History] Baclofen [Lioresal] 5 mg PO TID 07/01/18 [History] Doxycycline Hyclate [Vibramycin] 100 mg PO BID 07/01/18 [History] Famotidine [Heartburn Prevention] 20 mg PO Q12H 07/01/18 [History] Gabapentin [Neurontin] 400 mg PO TID 07/01/18 [History] Heparin 5,000 unit SQ Q8H 07/01/18 [History] Iron Polysaccharide Complex [Ferrex 150] 150 mg PO BID 07/01/18 [History] Nortriptyline [Pamelor] 25 mg PO HS 07/01/18 [History] Tramadol HCl [Ultram] 50 mg PO Q8H PRN 07/01/18 [History] Valproic Acid (As Sodium Salt) [Valproic Acid] 500 mg PO Q8H 07/01/18 [History] Ascorbic Acid [Vitamin C] 500 mg PO DAILY 07/28/18 [History] Budesonide/Formoterol 80/4.5 [Symbicort 80/4.5] 2 puff IH BID 07/28/18 [History ] Ertapenem [INVanz] 1,000 mg IVPB DAILY 07/28/18 [History] Lactulose [Enulose] 30 gm PO TIDWM 07/28/18 [History] Lidocaine [Aspercreme] 1 each TP DAILY 07/28/18 [History] Melatonin [Melatin] 3 mg PO HS 07/28/18 [History] Multivitamin [Multivitamins] 1 each PO DAILY 07/28/18 [History] OLANZapine [Zyprexa] 10 mg PO QPM 07/28/18 [History] Zinc Sulfate 220 mg PO BID 07/28/18 [History] 3 Allergy/AdvReac Type Severity Reaction Status Date / Time No Known Allergies Allergy Verified 07/24/18 18:38 Review of Systems ROS unobtainable: other (poor historian, denies pain) All systems PM: The remainder of the systems were reviewed and are negative General Surgery Exam Initial Vital Signs Temp Pulse Resp BP Pulse Ox 98.3 F 122 16 103/61 99 07/27/18 22:12 07/27/18 22:12 07/27/18 22:12 07/27/18 22:12 07/27/18 22:12 - General physical appearance no distress, chronically ill - Eyes normal ocular movement - ENT poor care home ([facility]) - Neck trachea midline - Respiratory normal respiratory effort - Integumentary Integumentary general surgery: Present: warm and dry, other (multiple decubitus ulcers (see wound care notes)) - Musculoskeletal Present: other (paraplegia) - Psychiatric Psychiatric general surgery: Present: oriented to person, oriented to place Exam Initial Vital Signs Temp Pulse Resp BP Pulse Ox 98.3 F 122 16 103/61 99 07/27/18 22:12 07/27/18 22:12 07/27/18 22:12 07/27/18 22:12 07/27/18 22:12 Results - Labs 07/29/18 04:51 07/29/18 04:51 Abnormal lab results RBC 2.71 M/mcL (4.19-5.50) L 07/29/18 04:51 Hgb 7.3 g/dL (12.9-16.9) L 07/29/18 04:51 Hct 23.9 % (37.5-50.1) L 07/29/18 04:51 MCH 26.9 pg (28.0-33.3) L 07/29/18 04:51 MCHC 30.5 g/dL (31.6-35.5) L 07/29/18 04:51 RDW 16.2 % (11.5-14.5) H 07/29/18 04:51 MPV 8.2 fL (9.4-12.4) L 07/29/18 04:51 Eosinophils # 0.8 K/mcL (0.0-0.6) H 07/27/18 23:21 Carbon Dioxide 30 mEq/L (23-29) H 07/29/18 04:51 Creatinine 0.51 mg/dL (0.70-1.30) L 07/29/18 04:51 BUN/Creatinine Ratio 31 (6-26) H 07/29/18 04:51 POC Glucose 107 mg/dL (70-99) H 07/28/18 11:44 Calcium 8.4 mg/dL (8.6-10.3) L 07/29/18 04:51 Urine Clarity Cloudy (Clear) A 07/27/18 23:45 Urine Blood Moderate (Negative) H 07/27/18 23:45 Urine Microscopic RBC 5-15 per hpf (0-3) H 07/27/18 23:45 Diabetes panel 07/29/18 Range/Units 04:51 Sodium 138 (136-145) mEq/L Potassium 3.9 (3.5-5.1) mEq/L Chloride 105 (98-107) mEq/L Carbon Dioxide 30 H (23-29) mEq/L BUN 16 (6-20) mg/dL Creatinine 0.51 L (0.70-1.30) mg/dL Glucose 103 (70-105) mg/dL Calcium 8.4 L (8.6-10.3) mg/dL Calcium panel 07/29/18 Range/Units 04:51 Calcium 8.4 L (8.6-10.3) mg/dL Pituitary panel 07/29/18 Range/Units 04:51 Sodium 138 (136-145) mEq/L Potassium 3.9 (3.5-5.1) mEq/L Chloride 105 (98-107) mEq/L Carbon Dioxide 30 H (23-29) mEq/L BUN 16 (6-20) mg/dL Creatinine 0.51 L (0.70-1.30) mg/dL Glucose 103 (70-105) mg/dL Calcium 8.4 L (8.6-10.3) mg/dL Adrenal panel 07/29/18 Range/Units 04:51 Sodium 138 (136-145) mEq/L Potassium 3.9 (3.5-5.1) mEq/L Chloride 105 (98-107) mEq/L Carbon Dioxide 30 H (23-29) mEq/L BUN 16 (6-20) mg/dL Creatinine 0.51 L (0.70-1.30) mg/dL Glucose 103 (70-105) mg/dL Calcium 8.4 L (8.6-10.3) mg/dL All other labs normal. - Imaging CT scan - abdomen: report reviewed CT scan - pelvis: report reviewed Consult Discharge Plan - Plan Referrals: Jayson Gutierrez, PAC [Primary Care Provider] -
--- NOTE | 2018-07-29 15:24 | Infectious Disease Consult ---
Date of Encounter: 07/29/18 Time of Encounter: 15:22 Assessment and Plan (1) Osteomyelitis of coccyx Status: Acute Assessment and plan: CT of the abdomen and pelvis reveals large sacral decubitus ulcer with underlying osseous irregularity involving the sacrum and coccyx. Possibly the left ischium and left greater filippo as well suggesting osteomyelitis. Most recent culture from 07/01/18 grew Proteus mirabilis S: Ertapenem, Zosyn, tobramycin and Morganella Morgagni S: Carbapenems, aminoglycosides, Bactrim I did speak with radiology to discuss the CT findings and this appears to be acute on chronic osteomyelitis Need to get records from [facility] to see what antibiotics he was discharged home the most recent time We will need to check inflammatory markers including ESR and CRP Agree with starting ertapenem Monitor labs and for drug toxicity Duration of treatment likely 6-8 weeks Appreciate surgery's recommendation, might need plastics, we will defer decision to transfer back to [facility] to the hospitalist team Patient needs to be in contact isolation (2) Pressure ulcer of sacral region, stage 4 Status: Chronic Assessment and plan: Surgery following Aggressive wound care Might benefit from an air mattress (3) COPD (chronic obstructive pulmonary disease) Status: Chronic Qualifiers: COPD type: emphysema Emphysema type: unspecified Qualified Code(s): J43.9 - Emphysema, unspecified (4) Drug abuse, IV Status: Chronic (5) Hepatitis C Status: Chronic Qualifiers: Viral hepatitis chronicity: unspecified Hepatic coma status: without hepatic coma Qualified Code(s): B19.20 - Unspecified viral hepatitis C without hepatic coma (6) History of cervical fracture Status: Chronic Infectious Disease HPI - Data of Consult Patient: new to practice Consult date: 07/29/18 Requesting Physician: Lj Ramos Primary Care Provider: Jayson Gutierrez - Consult Narrative Reason for consult: osteomyelitis History of present illness: Mr. Carrasco is a 52 year old male Patient is a 52-year-old gentleman who presented to [facility] on 07/28/2018 with fever and we are consulted for sacral osteomyelitis. Patient is a 52-year-old gentleman with extensive past medical history including COPD, GERD, hepatitis C, spinal stenosis, bipolars disorder and schizophrenia GI bleed with history of cervical fusion in February 2017 and epidural abscess with evacuation and laminectomy in December 2017 and her history of MRSA bacteremia in December 2017 and osteomyelitis of the sacrum in March 2018 at [facility] and he grew Morganella, Klebsiella and yeast. Patient was discharged on 8 week course of IV ertapenem and fluconazole. Patient apparently had a follow-up appointment at [facility] on May 01 and at that time another culture was obtained and it grew pseudomonas. There is a 10 and was given discontinue that the patient was started on cefepime and Flagyl for another 6 weeks. Patient was seen by us couple weeks ago for tachycardia leukocytosis and likely osteomyelitis. Patient at that time we will start with empiric vancomycin and Zosyn. Cultures were obtained at that time and grew Proteus mirabilis that is fatima resistant with exception of ertapenem, Zosyn and tobramycin and grew Morganella that was also multidrug resistant with the exception of cefepime, ertapenem, gentamicin, imipenem, tobramycin and Bactrim. On that admission patient ESR was 85 and CRP was 46. Patient was continued on vancomycin and Zosyn and then later transferred to [facility] for further workup and evaluation. We will attempt to get the [facility] records On further questioning patient is alert and oriented does not appear toxic. I asked him what they did the last time at [facility] and apparently they did a diverting colostomy.. CC: Lj Ramos Past Med Surg Social Fam HX - Past Medical History Medical history: COPD, GERD, hepatitis, other Additional medical history: spinal stenosis, anemia, encephalopathy, GI hemorrhage,MRSA, osteomyelitis, pressure ulcer Psychiatric history: bipolar, schizophrenia - Past Surgical History Surgical History: non-contributory Additional surgical history: back/spine surgery, evacuation of epidural abscess , I&D, C5-T1 laminectomy December 2017 - Social History Smoking Status: Current every day smoker Smokeless Tobacco Status: No Alcohol use: none Drug use: none Infectious Disease-CN:Meds Aspirin 81 mg PO DAILY tab.chew 12/30/17 [Rx] Albuterol Neb [Proventil Neb] 2.5 mg IH Q6H PRN 07/01/18 [History] Baclofen [Lioresal] 5 mg PO TID 07/01/18 [History] Doxycycline Hyclate [Vibramycin] 100 mg PO BID 07/01/18 [History] Famotidine [Heartburn Prevention] 20 mg PO Q12H 07/01/18 [History] Gabapentin [Neurontin] 400 mg PO TID 07/01/18 [History] Heparin 5,000 unit SQ Q8H 07/01/18 [History] Iron Polysaccharide Complex [Ferrex 150] 150 mg PO BID 07/01/18 [History] Nortriptyline [Pamelor] 25 mg PO HS 07/01/18 [History] Tramadol HCl [Ultram] 50 mg PO Q8H PRN 07/01/18 [History] Valproic Acid (As Sodium Salt) [Valproic Acid] 500 mg PO Q8H 07/01/18 [History] Ascorbic Acid [Vitamin C] 500 mg PO DAILY 07/28/18 [History] Budesonide/Formoterol 80/4.5 [Symbicort 80/4.5] 2 puff IH BID 07/28/18 [History ] Ertapenem [INVanz] 1,000 mg IVPB DAILY 07/28/18 [History] Lactulose [Enulose] 30 gm PO TIDWM 07/28/18 [History] Lidocaine [Aspercreme] 1 each TP DAILY 07/28/18 [History] Melatonin [Melatin] 3 mg PO HS 07/28/18 [History] Multivitamin [Multivitamins] 1 each PO DAILY 07/28/18 [History] OLANZapine [Zyprexa] 10 mg PO QPM 07/28/18 [History] Zinc Sulfate 220 mg PO BID 07/28/18 [History] 3 Allergy/AdvReac Type Severity Reaction Status Date / Time No Known Allergies Allergy Verified 07/24/18 18:38 Review of systems: 10 point review of systems done, negative other for what mentioned in history of present illness. Exam - Constitutional Vitals: Temp Pulse Resp BP Pulse Ox 98.0 F 102 16 98/61 96 07/29/18 11:58 07/29/18 11:58 07/29/18 11:58 07/29/18 11:58 07/29/18 11:58 General appearance: no acute distress, no febrile - Head Head exam: Present: atraumatic, normocephalic - Eye Eye exam: Present: EOMI, PERRL, sclera anicteric - ENT ENT exam: Present: mucous membranes moist Additional comments: No oral lesions - Neck Neck exam: Present: full ROM, normal inspection - Respiratory Respiratory exam: Present: CTAB. Absent: wheezes - Cardiovascular Cardiovascular exam: Present: RRR, +S1, +S2 - GI/Abdominal Additional comments: Soft, nontender, colostomy bag intact with normal consistency stool - Extremities Exam Extremities exam: Present: full ROM, normal inspection - Back Exam Additional comments: Multiple stage IV decubitus ulcer. There is no surrounding erythema or obvious drainage. - Neurological Exam Neurological exam: Present: alert, oriented X3 - Skin Skin exam: Present: normal color. Absent: rash Infectious Disease CN: Results - Labs CBC & Chem 7: 07/29/18 04:51 07/29/18 04:51 Consult Discharge Plan - Plan Referrals: WoundCare,Clinic [Other] (Please follow up one week after discharge, in the Wound Care Clinic. Thank you) Jayson Gutierrez, PAC [Primary Care Provider] -
[2018-07-29] MEDS: traMADol 50 MG TABLET PO PRN (15:51)
--- NOTE | 2018-07-29 18:21 | Internal Med Progress Note ---
Hospitalist Progress Note - Encounter Date of Encounter: 07/29/18 Time of Encounter: 11:00 - Subjective Interval History: Patient with history of spinal stenosis and paraplegic with sacral decubitus ulcer presents from [facility] due to fever. CT of the abdomen/pelvis showed large sacral decubitus ulcer with concerns for osteomyelitis Patient does not have much feeling due to paralysis but leukocytosis has resolved and patient has been afebrile since starting on ertapenem which was sensitive to Proteus mirabilis and Morganella grown on 07/01/18 - Exam Vitals: Temp Pulse Resp BP Pulse Ox 98.0 F 102 16 98/61 96 07/29/18 11:58 07/29/18 11:58 07/29/18 11:58 07/29/18 11:58 07/29/18 11:58 Exam: Gen.: Nonacute distress, alert and oriented 3 ENT: Mucosal membranes moist Cardiovascular: Normal S1 and S2 regular rate rhythm no murmurs rubs or gallops Abdomen: Soft, nontender and nondistended with positive bowel sounds Extremities: No lower extremity edema Skin: Normal color - Assessment and Plan (1) Fever Current Visit: Yes Status: Acute Assessment and Plan: Patient presents for ECF due to fevers although has been afebrile so far since admission. Suspect fevers could be secondary to sacral osteomyelitis and management as below (2) Osteomyelitis of coccyx Current Visit: Yes Status: Acute Assessment and Plan: Patient was recently discharged on 07/02/18 for the same symptoms of fever and found to have acute versus chronic sacral osteomyelitis and was transferred to [facility] by the recommendations of general surgery due to possible intervention from plastic surgery. CT of the abdomen/pelvis showed a large sacral decubitus ulcer with underlying osseous irregularity involving the sacrum and coccyx, (possibly the left ischium and left greater trochanter as well) suggesting osteomyelitis. Patients sacral wound cultures last time (07/01/18) grew Proteus mirabilis and Morganella which were both only sensitive to ertapenem and tobramycin. Infectious disease consulted with recommendations to start patient on ertapenem Patient's leukocytosis has resolved and has been afebrile. Appreciate any further recommendations (3) Pressure ulcer of sacral region, stage 4 Current Visit: Yes Status: Chronic Assessment and Plan: Patient with sacral ulcer and concerns for osteomyelitis as above. Wound care consulted and appreciate recommendations (4) Pressure ulcer of both feet, unstageable Current Visit: Yes Status: Acute Assessment and Plan: Wound care consulted and appreciate recommendations (5) Hepatitis C Current Visit: No Status: Chronic Assessment and Plan: Suspect secondary to history of IV drug use Patient with a history of IV drug use in November 2017 (6) Mood disorder Current Visit: Yes Status: Acute Assessment and Plan: Continue home medications (7) Tobacco use Current Visit: No Status: Chronic Assessment and Plan: Smoking cessation DVT Prophylaxis: lovenox subcutaneous - Time Spent with Patient Total time spent is greater than 50% in coordination of care (as documented) at patient's floor/unit and/or counseling patient: Internal Medicine: Result - Labs CBC & Chem 7: 07/29/18 04:51 07/29/18 04:51 Labs: Short CBC 07/29/18 Range/Units 04:51 WBC 9.6 (4.3-11.1) K/mcL Hgb 7.3 L (12.9-16.9) g/dL Hct 23.9 L (37.5-50.1) % Plt Count 286 (140-400) K/mcL BMP 07/29/18 04:51 Sodium 138 Potassium 3.9 Chloride 105 Carbon Dioxide 30 H BUN 16 Creatinine 0.51 L Glucose 103 Calcium 8.4 L Consult Discharge Plan - Plan Referrals: WoundCare,Clinic [Other] (Please follow up one week after discharge, in the Wound Care Clinic. Thank you) Jayson Gutierrez, PAC [Primary Care Provider] - (1) Fever Qualifiers: Encounter type: initial encounter Qualified Code(s): T88.3XXA - Malignant hyperthermia due to anesthesia, initial encounter (5) Hepatitis C Qualifiers: Viral hepatitis chronicity: unspecified Hepatic coma status: without hepatic coma Qualified Code(s): B19.20 - Unspecified viral hepatitis C without hepatic coma
[2018-07-29] MEDS: OLANZapine 5 MG TAB.RAPDIS PO SCH (18:49)
[2018-07-29] MEDS: Melatonin 3 MG TABLET PO SCH (22:08)
[2018-07-30] MEDS: *HR* Heparin 5,000 UNIT/ML VIAL SQ SCH ×3 (05:39→20:08)
[2018-07-30] MEDS: Valproic Acid 250 MG CAPSULE PO SCH ×3 (05:39→20:08)
[2018-07-30] MEDS: 0.9 % Sodium Chloride 1,000 ML IVC SCH ×3 (05:39→14:45)
[2018-07-30] MEDS: Famotidine 20 MG TABLET PO SCH ×2 (05:39→18:36)
--- NOTE | 2018-07-30 09:47 | Internal Med Progress Note ---
Hospitalist Progress Note - Encounter Date of Encounter: 07/30/18 Time of Encounter: 11:00 - Subjective Interval History: Patient with history of spinal stenosis and paraplegic with sacral decubitus ulcer presents from ECF due to fever. CT of the abdomen/pelvis showed large sacral decubitus ulcer with concerns for osteomyelitis Patient has been afebrile and leukocytosis has resolved since starting on ertapenem - Exam Vitals: Temp Pulse Resp BP Pulse Ox 99.0 F 100 20 99/61 97 07/30/18 07:13 07/30/18 07:13 07/30/18 07:13 07/30/18 07:13 07/30/18 07:13 Exam: Gen.: Nonacute distress, alert and oriented 3 ENT: Mucosal membranes moist Cardiovascular: Normal S1 and S2 regular rate rhythm no murmurs rubs or gallops Abdomen: Soft, nontender and nondistended with positive bowel sounds Extremities: No lower extremity edema Skin: Normal color - Assessment and Plan (1) Fever Current Visit: Yes Status: Acute Assessment and Plan: Patient presents for ECF due to fevers although has been afebrile so far since admission. Suspect fevers could be secondary to sacral osteomyelitis and management as below (2) Osteomyelitis of coccyx Current Visit: Yes Status: Acute Assessment and Plan: Patient was recently discharged on 07/02/18 for the same symptoms of fever and found to have acute versus chronic sacral osteomyelitis and was transferred to [facility] by the recommendations of general surgery due to possible intervention from plastic surgery. CT of the abdomen/pelvis showed a large sacral decubitus ulcer with underlying osseous irregularity involving the sacrum and coccyx, (possibly the left ischium and left greater trochanter as well) suggesting osteomyelitis. Patients sacral wound cultures last time (07/01/18) grew Proteus mirabilis and Morganella which were both only sensitive to ertapenem and tobramycin. Patient's leukocytosis has resolved and has been afebrile. Continue day 3 of IV ertapenem Appreciate any further recommendations (3) Pressure ulcer of sacral region, stage 4 Current Visit: Yes Status: Chronic Assessment and Plan: Patient with sacral ulcer and concerns for osteomyelitis as above. Wound care consulted and appreciate recommendations (4) Pressure ulcer of both feet, unstageable Current Visit: Yes Status: Acute Assessment and Plan: Wound care consulted and appreciate recommendations (5) Hepatitis C Current Visit: No Status: Chronic Assessment and Plan: Suspect secondary to history of IV drug use Patient with a history of IV drug use in November 2017 (6) Mood disorder Current Visit: Yes Status: Acute Assessment and Plan: Continue home medications (7) Tobacco use Current Visit: No Status: Chronic Assessment and Plan: Smoking cessation DVT Prophylaxis: Subcutaneous heparin - Time Spent with Patient Total time spent is greater than 50% in coordination of care (as documented) at patient's floor/unit and/or counseling patient: Internal Medicine: Result - Labs CBC & Chem 7: 07/30/18 09:56 07/30/18 09:56 Consult Discharge Plan - Plan Referrals: WoundCare,Clinic [Other] (Please follow up one week after discharge, in the Wound Care Clinic. Thank you) Jayson Gutierrez, PAC [Primary Care Provider] - (1) Fever Qualifiers: Encounter type: initial encounter (5) Hepatitis C Qualifiers: Viral hepatitis chronicity: unspecified Hepatic coma status: without hepatic coma Qualified Code(s): B19.20 - Unspecified viral hepatitis C without hepatic coma
[2018-07-30] MEDS: Lactulose Oral Soln 20 GM/30 ML UDC PO SCH ×3 (10:04→18:36)
[2018-07-30] MEDS: Trolamine Salicylate/Aloe Vera 35.4 GM TUBE TP SCH (10:04)
[2018-07-30] MEDS: Aspirin 81 MG TAB.CHEW PO SCH (10:05)
[2018-07-30] MEDS: Iron Polysaccharide Complex 150 MG CAPSULE PO SCH ×2 (10:05→20:09)
[2018-07-30] MEDS: Ertapenem 1,000 MG in 0.9 % Sodium Chloride Mini Bag 100 ML IVPB SCH (10:06)
[2018-07-30] MEDS: Ascorbic Acid 500 MG TABLET PO SCH (10:07)
[2018-07-30] MEDS: Zinc Sulfate 220 MG CAPSULE PO SCH ×2 (10:07→20:09)
[2018-07-30] MEDS: Baclofen 10 MG TABLET PO SCH ×3 (10:07→20:08)
[2018-07-30] MEDS: Gabapentin 400 MG CAPSULE PO SCH ×3 (10:09→20:09)
[2018-07-30] MEDS: Gentamicin Oint 15 GM TUBE TP SCH (10:09)
[2018-07-30] MEDS: Multivit/Ca/Min/Fe/FA 1 TAB TABLET PO SCH (10:09)
[2018-07-30 10:12] LABS: Basophils % 0.3 %; Eosinophils # 0.5 K/mcL (0.0-0.6); Eosinophils % 5.6 %; Hematocrit 27.1 % (37.5-50.1); Hemoglobin 8.5 g/dL (12.9-16.9); Immature Granulocytes % 0.3 % (0-4); Lymphocytes # 2.2 K/mcL (0.6-4.6); Lymphocytes % 24.3 %; Mean Corpuscular HGB Conc 31.4 g/dL (31.6-35.5); Mean Corpuscular Hemoglobin 27.6 pg (28.0-33.3); Mean Platelet Volume 8.2 fL (9.4-12.4); Monocytes # 0.6 K/mcL (0.0-1.3); Monocytes % 6.5 %; Neutrophils # 5.7 K/mcL (1.6-8.9); Platelet Count 331 K/mcL (140-400); Red Blood Count 3.08 M/mcL (4.19-5.50); Red Cell Distribution Width 15.9 % (11.5-14.5)
[2018-07-30 10:34] LABS: BUN/Creatinine Ratio 18 (6-26); Blood Urea Nitrogen 9 mg/dL (6-20); Calcium 8.8 mg/dL (8.6-10.3); Carbon Dioxide 28 mEq/L (23-29); Chloride 103 mEq/L (98-107); Glucose 107 mg/dL (70-105); Osmolality,Calculated 281 (280-300); Potassium 3.9 mEq/L (3.5-5.1); Sodium 136 mEq/L (136-145); eGFR For Non-African Americans > 60 (> 60)
--- NOTE | 2018-07-30 15:14 | Infectious Disease Progress No ---
Date of Encounter: 07/30/18 Time of Encounter: 11:50 - Assessment and Plan (1) Sepsis Current Visit: No Status: Acute The patient had two SIRS criteria on admission. Likely secondary to osteomyelitis of the sacrum. Improved. WBC has normalized. Tachycardia has improved. Blood cultures drawn 07/27/18 are NGTD x 2 sets. Qualifiers: Sepsis type: sepsis due to unspecified organism Qualified Code(s): A41.9 - Sepsis, unspecified organism (2) Osteomyelitis of coccyx Current Visit: Yes Status: Acute CT of the abdomen and pelvis reveals large sacral decubitus ulcer with underlying osseous irregularity involving the sacrum and coccyx. Possibly the left ischium and left greater filippo as well suggesting osteomyelitis. Most recent culture from 07/01/18 grew Proteus mirabilis S: Ertapenem, Zosyn, tobramycin and Morganella Morgagni S: Carbapenems, aminoglycosides, Bactrim Dr. Durham did speak with radiology to discuss the CT findings and this appears to be acute on chronic osteomyelitis. Review of [facility] records reveals that the patient was discharged from [facility] on Ertapenem. We will need to check inflammatory markers including ESR and CRP. Continue Ertapenem 1 gram IV Q24H. Duration of treatment likely 6-8 weeks. Appreciate surgery's recommendation, might need plastics, we will defer decision to transfer back to [facility] to the hospitalist team. Continue contact isolation per protocol. Monitor renal function and for drug toxicity and dose-adjust antibiotics. (3) Pressure ulcer of sacral region, stage 4 Current Visit: Yes Status: Chronic Surgery following Aggressive wound care Might benefit from an air mattress (4) Pressure ulcer of both feet, unstageable Current Visit: Yes Status: Acute (5) Hepatitis C Current Visit: No Status: Chronic Qualifiers: Viral hepatitis chronicity: unspecified Hepatic coma status: without hepatic coma Qualified Code(s): B19.20 - Unspecified viral hepatitis C without hepatic coma (6) COPD (chronic obstructive pulmonary disease) Current Visit: No Status: Chronic Qualifiers: COPD type: emphysema Emphysema type: unspecified Qualified Code(s): J43.9 - Emphysema, unspecified (7) Epidural abscess Current Visit: Yes Status: Resolved Diagnosed in December. Discharged from [facility] on chronic oral doxycycline for chronic suppressive therapy due to hardware in his back. Start doxycycline 100mg PO BID. Per [facility], continue through 09/22/18. - Subjective Interval history: Patient seen and examined. No acute events noted overnight. Patient states overall he feels okay. Reports pain and spasms in the left thigh area. Denies fevers, chills, or rigors. Denies chest pain, shortness of breath, or cough. Denies nausea, vomiting, or diarrhea. Reports normal output from his colostomy. Denies oral thrush or skin lesions. Denies abdominal pain or appetite changes. Willis catheter remains patent draining clear yellow urine. Infect Dis PN-Objective Data - Labs CBC & Chem 7: 07/31/18 04:00 07/31/18 04:00 Exam - Constitutional Vitals: Temp Pulse Resp BP Pulse Ox 97.8 F 98 18 94/60 98 07/30/18 10:42 07/30/18 10:42 07/30/18 10:42 07/30/18 10:42 07/30/18 10:42 General appearance: cooperative, no acute distress, thin - Head Head exam: Present: atraumatic, normal inspection, normocephalic - Eye Eye exam: Present: EOMI, normal appearance, PERRL Pupils: Present: normal accommodation - ENT ENT exam: Present: mucous membranes moist - Neck Neck exam: Present: normal inspection - Respiratory Respiratory exam: Present: CTAB. Absent: rales, respiratory distress, rhonchi, wheezes - Cardiovascular Cardiovascular exam: Present: RRR, +S1, +S2 - GI/Abdominal GI/Abdominal exam: Present: normal bowel sounds, soft. Absent: distended, tenderness Additional comments: Colostomy noted to the left abdomen with small amount of liquid brown stool noted in the collection bag. Stoma is beefy red and moist. Wafer and collection bag remain intact. Willis catheter noted to be draining clear yellow urine. - Extremities Exam Extremities exam: Absent: joint swelling, normal inspection (Contractures and muscle wasting noted to the BLE.), pedal edema, tenderness Additional comments: Bilateral foot dressing and heel protector boots noted to the bilateral LE. - Back Exam Additional comments: Deferred per the patient's request. - Neurological Exam Neurological exam: Present: alert, oriented X3. Absent: no focal deficits ( Decreased movement and sensation noted to the BLE) - Psychiatric Psychiatric exam: Present: normal affect, normal mood - Skin Skin exam: Present: dry, intact, normal color, warm Consult Discharge Plan - Plan Referrals: WoundCare,Clinic [Other] (Please follow up one week after discharge, in the Wound Care Clinic. Thank you) Jayson Gutierrez, PAC [Primary Care Provider] - - Attending Attestation I examined this patient and my medical decision-making was reviewed with the Resident Physician. I agree with the documented findings, disposition and treatment plan as described except to the extent set forth below.
[2018-07-30] MEDS: OLANZapine 5 MG TAB.RAPDIS PO SCH (18:36)
[2018-07-30] MEDS: Doxycycline 100 MG CAPSULE PO SCH (20:09)
[2018-07-30] MEDS: Melatonin 3 MG TABLET PO SCH (20:09)
[2018-07-31] MEDS: 0.9 % Sodium Chloride 1,000 ML IVC SCH ×3 (01:29→10:15)
[2018-07-31 04:27] LABS: Basophils % 0.3 %; Eosinophils # 0.5 K/mcL (0.0-0.6); Eosinophils % 6.2 %; Hematocrit 25.3 % (37.5-50.1); Hemoglobin 7.9 g/dL (12.9-16.9); Immature Granulocytes % 0.4 % (0-4); Lymphocytes % 25.7 %; Mean Corpuscular HGB Conc 31.2 g/dL (31.6-35.5); Mean Corpuscular Hemoglobin 27.5 pg (28.0-33.3); Mean Corpuscular Volume 88.2 fL (83.0-100.0); Mean Platelet Volume 8.2 fL (9.4-12.4); Monocytes # 0.7 K/mcL (0.0-1.3); Monocytes % 9.2 %; Neutrophils # 4.4 K/mcL (1.6-8.9); Platelet Count 291 K/mcL (140-400); Red Blood Count 2.87 M/mcL (4.19-5.50); Red Cell Distribution Width 15.9 % (11.5-14.5); Segmented Neutrophils % 58.2 %
[2018-07-31 04:41] LABS: BUN/Creatinine Ratio 14 (6-26); Blood Urea Nitrogen 9 mg/dL (6-20); Calcium 8.7 mg/dL (8.6-10.3); Carbon Dioxide 26 mEq/L (23-29); Chloride 103 mEq/L (98-107); Glucose 114 mg/dL (70-105); Osmolality,Calculated 280 (280-300); Sodium 135 mEq/L (136-145); eGFR For Non-African Americans > 60 (> 60)
[2018-07-31] MEDS: Famotidine 20 MG TABLET PO SCH ×2 (05:20→17:07)
[2018-07-31] MEDS: Valproic Acid 250 MG CAPSULE PO SCH ×2 (05:20→17:15)
[2018-07-31] MEDS: *HR* Heparin 5,000 UNIT/ML VIAL SQ SCH ×2 (05:21→16:58)
[2018-07-31] MEDS: Lactulose Oral Soln 20 GM/30 ML UDC PO SCH ×3 (10:14→16:58)
[2018-07-31] MEDS: Gentamicin Oint 15 GM TUBE TP SCH (10:15)
[2018-07-31] MEDS: Trolamine Salicylate/Aloe Vera 35.4 GM TUBE TP SCH (10:16)
[2018-07-31] MEDS: Zinc Sulfate 220 MG CAPSULE PO SCH (10:19)
[2018-07-31] MEDS: Iron Polysaccharide Complex 150 MG CAPSULE PO SCH (10:20)
[2018-07-31] MEDS: Doxycycline 100 MG CAPSULE PO SCH (10:20)
[2018-07-31] MEDS: Baclofen 10 MG TABLET PO SCH ×2 (10:20→16:58)
[2018-07-31] MEDS: Gabapentin 400 MG CAPSULE PO SCH ×2 (10:20→16:58)
[2018-07-31] MEDS: Multivit/Ca/Min/Fe/FA 1 TAB TABLET PO SCH (10:21)
[2018-07-31] MEDS: Ascorbic Acid 500 MG TABLET PO SCH (10:21)
[2018-07-31] MEDS: Aspirin 81 MG TAB.CHEW PO SCH (10:21)
[2018-07-31] MEDS: Ertapenem 1,000 MG in 0.9 % Sodium Chloride Mini Bag 100 ML IVPB SCH (10:21)
--- NOTE | 2018-07-31 11:18 | Infectious Disease Progress No ---
Date of Encounter: 07/31/18 Time of Encounter: 11:16 - Assessment and Plan (1) Sepsis Current Visit: No Status: Acute The patient had two SIRS criteria on admission. Likely secondary to osteomyelitis of the sacrum. Improved. WBC has normalized. Tachycardia has improved. Blood cultures drawn 07/27/18 are NGTD x 2 sets. Qualifiers: Sepsis type: sepsis due to unspecified organism Qualified Code(s): A41.9 - Sepsis, unspecified organism (2) Osteomyelitis of coccyx Current Visit: Yes Status: Acute CT of the abdomen and pelvis reveals large sacral decubitus ulcer with underlying osseous irregularity involving the sacrum and coccyx. Possibly the left ischium and left greater filippo as well suggesting osteomyelitis. Most recent culture from 07/01/18 grew Proteus mirabilis S: Ertapenem, Zosyn, tobramycin and Morganella Morgagni S: Carbapenems, aminoglycosides, Bactrim Dr. Durham did speak with radiology to discuss the CT findings and this appears to be acute on chronic osteomyelitis. Review of [facility] records reveals that the patient was discharged from [facility] on Ertapenem. We will need to check inflammatory markers including ESR and CRP.--> 74 and 50, respectively. Continue Ertapenem 1 gram IV Q24H. Duration of treatment likely 6-8 weeks. Appreciate surgery's recommendation, might need plastics, we will defer decision to transfer back to [facility] to the hospitalist team. The patient is declining transfer to [facility] at this time despite discussing the risks, benefits, and alternatives. I advised him that without adequate debridement, the antibiotics cannot do what they are supposed to do. He continues to refuse transfer and states he wants to go back to [facility] and continue his physical therapy. Continue contact isolation per protocol. Monitor renal function and for drug toxicity and dose-adjust antibiotics. (3) Pressure ulcer of sacral region, stage 4 Current Visit: Yes Status: Chronic Surgery following Aggressive wound care Might benefit from an air mattress (4) Pressure ulcer of both feet, unstageable Current Visit: Yes Status: Acute (5) Hepatitis C Current Visit: No Status: Chronic Qualifiers: Viral hepatitis chronicity: unspecified Hepatic coma status: without hepatic coma Qualified Code(s): B19.20 - Unspecified viral hepatitis C without hepatic coma (6) COPD (chronic obstructive pulmonary disease) Current Visit: No Status: Chronic Qualifiers: COPD type: emphysema Emphysema type: unspecified Qualified Code(s): J43.9 - Emphysema, unspecified (7) Epidural abscess Current Visit: Yes Status: Resolved Diagnosed in December. Discharged from [facility] on chronic oral doxycycline for chronic suppressive therapy due to hardware in his back. Continue doxycycline 100mg PO BID. Per [facility], continue through 09/22/18. - Subjective Interval history: Patient seen and examined. No acute events noted overnight. Patient undergoing dressing changes during my exam. Denies chest pain, shortness of breath, or cough. Denies nausea, vomiting, or diarrhea. Willis catheter remains patient. Denies abdominal pain or appetite changes. Wants to go back to the [facility] to continue his therapy so he can walk again. He is declining transfer to [facility] for plastic surgery evaluation. Infect Dis PN-Objective Data - Labs CBC & Chem 7: 07/31/18 04:00 07/31/18 04:00 Labs: Laboratory Results - last 24 hr 07/31/18 07/31/18 04:00 04:00 WBC 7.6 RBC 2.87 L Hgb 7.9 L Hct 25.3 L MCV 88.2 MCH 27.5 L MCHC 31.2 L RDW 15.9 H Plt Count 291 MPV 8.2 L Immature Gran % 0.4 Seg Neutrophils % 58.2 Lymphocytes % 25.7 Monocytes % 9.2 Eosinophils % 6.2 Basophils % 0.3 Neutrophils # 4.4 Lymphocytes # 2.0 Monocytes # 0.7 Eosinophils # 0.5 Basophils # 0.0 Sodium 135 L Potassium 4.0 Chloride 103 Carbon Dioxide 26 BUN 9 Creatinine 0.63 L Est GFR ( Amer) > 60 Est GFR (Non-Af Amer) > 60 BUN/Creatinine Ratio 14 Glucose 114 H Calculated Osmolality 280 Calcium 8.7 Exam - Constitutional Vitals: Temp Pulse Resp BP Pulse Ox 98.4 F 107 16 95/57 97 07/31/18 07:14 07/31/18 07:14 07/31/18 07:14 07/31/18 07:14 07/31/18 07:14 General appearance: cooperative, no acute distress, thin - Head Head exam: Present: atraumatic, normal inspection, normocephalic - Eye Eye exam: Present: EOMI, normal appearance, PERRL Pupils: Present: normal accommodation - ENT ENT exam: Present: mucous membranes moist - Neck Neck exam: Present: normal inspection - Respiratory Respiratory exam: Present: CTAB. Absent: rales, respiratory distress, rhonchi, wheezes - Cardiovascular Cardiovascular exam: Present: RRR, +S1, +S2 - GI/Abdominal GI/Abdominal exam: Present: normal bowel sounds, soft. Absent: distended, tenderness Additional comments: Colostomy noted to the left abdomen with small amount of liquid brown stool noted in the bag. Willis catheter noted to be draining clear yellow urine. - Extremities Exam Extremities exam: Absent: joint swelling, pedal edema, tenderness Additional comments: Bilateral foot dressing and heel protector boots noted. - Neurological Exam Neurological exam: Present: alert, oriented X3. Absent: no focal deficits ( Decreased sensation and motor to the BLE.) - Psychiatric Psychiatric exam: Present: normal affect, normal mood - Skin Additional comments: Stage 4 decubitus ulcers noted to the left hip, left ischium, Right ischium, and sacrum. Wound beds are pink and moist with small amount of slough noted. Large amount of dark yellow drainage noted on old dressings. No foul odor, necrosis, or surrounding cellulitis noted.. Consult Discharge Plan - Plan Referrals: WoundCare,Clinic [Other] (Please follow up one week after discharge, in the Wound Care Clinic. Thank you) Jayson Gutierrez, PAC [Primary Care Provider] - - Attending Attestation I examined this patient and my medical decision-making was reviewed with the Resident Physician. I agree with the documented findings, disposition and treatment plan as described except to the extent set forth below.
[2018-07-31 14:02] VITALS: BP 100/62
[2018-07-31] MEDS: OLANZapine 5 MG TAB.RAPDIS PO SCH (17:07)
--- NOTE | 2018-07-31 17:36 | Discharge Summary ---
- NOTES TO OUTPATIENT PROVIDER Notes to Outpatient Provider: She will need to follow-up for persistent osteomyelitis and to complete a 6-8 week course of IV ertapenem Orders not resulted at time of discharge: Pending orders 08/01/18 04:00 Basic Metabolic Panel AM 0400 Complete Blood Count [HEME] AM 0400 08/02/18 04:00 Basic Metabolic Panel AM 0400 Complete Blood Count [HEME] AM 0400 Date of Encounter: 07/31/18 Time of Encounter: 11:00 - Discharge Diagnosis (1) Osteomyelitis of coccyx Priority: Primary Status: Acute (2) Pressure ulcer of sacral region, stage 4 Priority: Primary Status: Chronic (3) Pressure ulcer of both feet, unstageable Priority: Secondary Status: Acute (4) Hepatitis C Priority: Secondary Status: Chronic Qualifiers: Viral hepatitis chronicity: unspecified Hepatic coma status: without hepatic coma Qualified Code(s): B19.20 - Unspecified viral hepatitis C without hepatic coma (5) Mood disorder Priority: Secondary Status: Acute (6) Tobacco use Priority: Secondary Status: Chronic Hospital course: Patient is a 52-year-old male with past medical history significant for spinal stenosis and paraplegic, mood disorder and hepatitis C who was recently discharged on 07/02/18 for the same symptoms of fever and found to have acute versus chronic sacral osteomyelitis and was transferred to [facility] by the recommendations of general surgery due to possible intervention from plastic surgery. Patient again presents from the [facility] with fevers and in the ER CT of the abdomen/ pelvis showed a large sacral decubitus ulcer with underlying osseous irregularity involving the sacrum and coccyx, (possibly the left ischium and left greater trochanter as well) suggesting osteomyelitis. Patient with a slight white blood cell count of 13.3 and afebrile. Patients sacral wound cultures last time (07/01/18) grew Proteus mirabilis and Morganella which were both only sensitive to ertapenem and tobramycin. Patient will be admitted to medical surgical floor with a general surgery and infectious disease consult for evaluation. During patients hospital stay he was treated with IV ertapenem. Infectious disease was consulted with recommendations that patient be transferred to [facility] for evaluation and management by plastic surgery for deep debridement of bone due to persistent osteomyelitis. Patient however declined to be transferred to [facility] and [facility] Patient will therefore be discharged at patients wish [facility] to [facility] facility to continue a 6-8 week course of ertapenem. Patient will need to be follow-up for resolution of osteomyelitis. - Time Spent with Patient Total time spent providing and/or coordinating discharge services: Less than 30 minutes - Discharge Medications Home Medications: Aspirin 81 mg PO DAILY tab.chew 12/30/17 [Rx] Albuterol Neb [Proventil Neb] 2.5 mg IH Q6H PRN 07/01/18 [History] Baclofen [Lioresal] 5 mg PO TID 07/01/18 [History] Doxycycline Hyclate [Vibramycin] 100 mg PO BID 07/01/18 [History] Famotidine [Heartburn Prevention] 20 mg PO Q12H 07/01/18 [History] Gabapentin [Neurontin] 400 mg PO TID 07/01/18 [History] Heparin 5,000 unit SQ Q8H 07/01/18 [History] Iron Polysaccharide Complex [Ferrex 150] 150 mg PO BID 07/01/18 [History] Nortriptyline [Pamelor] 25 mg PO HS 07/01/18 [History] Tramadol HCl [Ultram] 50 mg PO Q8H PRN 07/01/18 [History] Valproic Acid (As Sodium Salt) [Valproic Acid] 500 mg PO Q8H 07/01/18 [History] Ascorbic Acid [Vitamin C] 500 mg PO DAILY 07/28/18 [History] Budesonide/Formoterol 80/4.5 [Symbicort 80/4.5] 2 puff IH BID 07/28/18 [History ] Ertapenem [INVanz] 1,000 mg IVPB DAILY 07/28/18 [History] Lactulose [Enulose] 30 gm PO TIDWM 07/28/18 [History] Lidocaine [Aspercreme] 1 each TP DAILY 07/28/18 [History] Melatonin [Melatin] 3 mg PO HS 07/28/18 [History] Multivitamin [Multivitamins] 1 each PO DAILY 07/28/18 [History] OLANZapine [Zyprexa] 10 mg PO QPM 07/28/18 [History] Zinc Sulfate 220 mg PO BID 07/28/18 [History] Allergies/Adverse Reactions: 3 Allergy/AdvReac Type Severity Reaction Status Date / Time No Known Allergies Allergy Verified 07/24/18 18:38 Date of admission: 07/30/18 10:49 Primary care physician: Jayson Gutierrez - Constitutional Vitals: Temp Pulse Resp BP Pulse Ox 98.0 F 96 14 100/62 97 07/31/18 14:00 07/31/18 14:00 07/31/18 14:00 07/31/18 14:00 07/31/18 14:00 General appearance: Present: A&O X 3, no acute distress Exam: Gen.: Nonacute distress, alert and oriented 3 ENT: Mucosal membranes moist Cardiovascular: Normal S1 and S2 regular rate rhythm no murmurs rubs or gallops Abdomen: Soft, nontender and nondistended with positive bowel sounds Extremities: No lower extremity edema Skin: Normal color - Patient Status Disposition: Transfer SNF Condition: Fair - Discharge Instructions Follow Up With: WoundCare,Clinic [Other] (Please follow up one week after discharge, in the Wound Care Clinic. Thank you) Jayson Gutierrez, PAC [Primary Care Provider] -
--- NOTE | 2018-07-31 17:39 | Physician Discharge Referral ---
ExtendedCare Referral Info Institutional Level of Care: Skilled - Diagnosis (1) Fever Status: Acute (2) Osteomyelitis of coccyx Status: Acute (3) Pressure ulcer of sacral region, stage 4 Status: Chronic (4) Pressure ulcer of both feet, unstageable Status: Acute (5) Hepatitis C Status: Chronic (6) Mood disorder Status: Acute (7) Tobacco use Status: Chronic - Transfer Medications Home Medications: Aspirin 81 mg PO DAILY tab.chew 12/30/17 [Rx] Albuterol Neb [Proventil Neb] 2.5 mg IH Q6H PRN 07/01/18 [History] Baclofen [Lioresal] 5 mg PO TID 07/01/18 [History] Doxycycline Hyclate [Vibramycin] 100 mg PO BID 07/01/18 [History] Famotidine [Heartburn Prevention] 20 mg PO Q12H 07/01/18 [History] Gabapentin [Neurontin] 400 mg PO TID 07/01/18 [History] Heparin 5,000 unit SQ Q8H 07/01/18 [History] Iron Polysaccharide Complex [Ferrex 150] 150 mg PO BID 07/01/18 [History] Nortriptyline [Pamelor] 25 mg PO HS 07/01/18 [History] Tramadol HCl [Ultram] 50 mg PO Q8H PRN 07/01/18 [History] Valproic Acid (As Sodium Salt) [Valproic Acid] 500 mg PO Q8H 07/01/18 [History] Ascorbic Acid [Vitamin C] 500 mg PO DAILY 07/28/18 [History] Budesonide/Formoterol 80/4.5 [Symbicort 80/4.5] 2 puff IH BID 07/28/18 [History ] Ertapenem [INVanz] 1,000 mg IVPB DAILY 07/28/18 [History] Lactulose [Enulose] 30 gm PO TIDWM 07/28/18 [History] Lidocaine [Aspercreme] 1 each TP DAILY 07/28/18 [History] Melatonin [Melatin] 3 mg PO HS 07/28/18 [History] Multivitamin [Multivitamins] 1 each PO DAILY 07/28/18 [History] OLANZapine [Zyprexa] 10 mg PO QPM 07/28/18 [History] Zinc Sulfate 220 mg PO BID 07/28/18 [History] Allergies/Adverse Reactions: 3 Allergy/AdvReac Type Severity Reaction Status Date / Time No Known Allergies Allergy Verified 07/24/18 18:38 - Respiratory Orders Smoking Cessation: Smoking cessation has been advised. For more information, call the [place] Tobacco Quit Line at 4-439-RVWH-NOW. CERTIFICATION: I certify that the transfer of the above named patient to an Extended Care Facility is necessary for the continuing treatment of the diagnosis listed. The above information is true and accurate reflection of patient's current condition. Confidential - Redisclosure prohibited without a patient's written consent.
== END 2018-07-31 19:36 | DRG 720 ==
LOC: EMEROOARM 22:03 → 2SOUTHHOLD 22:03 → SUATTDRO 07-28 02:06 → 2SOUTHHOLD 07-28 03:06 → 3ANU 07-28 17:57
PROVIDERS: ADMIT Pediatrics; ATTEND Hospitalist

== ENCOUNTER 2018-08-02 22:12 | Inpatient (IN) ==
[2018-08-02] MEDS ORDERED: Piperacillin/Tazobactam 3.375 GM in Water for inj. (sterile) 20 ML 20 ML IVP ONE (22:32)
[2018-08-02 23:05] LABS: Basophils # 0.1 K/mcL (0.0-0.2); Basophils % 0.4 %; Eosinophils # 0.8 K/mcL (0.0-0.6); Eosinophils % 6.1 %; Hematocrit 31.1 % (37.5-50.1); Hemoglobin 10.1 g/dL (12.9-16.9); Immature Granulocytes % 0.6 % (0-4); Lymphocytes # 3.2 K/mcL (0.6-4.6); Lymphocytes % 23.7 %; Mean Corpuscular HGB Conc 32.5 g/dL (31.6-35.5); Mean Corpuscular Hemoglobin 28.1 pg (28.0-33.3); Mean Corpuscular Volume 86.4 fL (83.0-100.0); Mean Platelet Volume 8.3 fL (9.4-12.4); Monocytes # 1.2 K/mcL (0.0-1.3); Monocytes % 8.6 %; Neutrophils # 8.1 K/mcL (1.6-8.9); Platelet Count 298 K/mcL (140-400); Red Cell Distribution Width 15.4 % (11.5-14.5); Segmented Neutrophils % 60.6 %
[2018-08-02 23:08] LABS: Bilirubin,Urine Negative (Negative); Blood,Urine Moderate (Negative); Clarity,Urine Clear (Clear); Color,Urine Yellow (Yellow); Glucose,Urine (UA) Normal (Normal); Ketones,Urine Negative (Negative); Leukocyte Esterase,Urine Negative (Negative); Nitrite,Urine Negative (Negative); PH,Urine 5.5 pH Units (5.0-8.0); Protein,Urine >=300 mg/dL (Neg-Trace); Specific Gravity,Urine >= 1.030 (1.010-1.025); Urobilinogen,Urine Normal (Normal)
[2018-08-02 23:10] LABS: INR 1.1; Prothrombin Time 12.4 Seconds (9.4-12.1)
[2018-08-02 23:13] LABS: Activated Partial Thrombo Time 31.6 Seconds (26.0-36.0)
--- NOTE | 2018-08-02 23:13 | Emergency Department Note ---
Disposition Clinical Impression: Tachycardia, Sacral decubitus ulcer, stage IV Sepsis Qualifiers: Sepsis type: sepsis due to unspecified organism Qualified Code(s): A41.9 - Sepsis, unspecified organism Osteomyelitis Qualifiers: Osteomyelitis type: other Osteomyelitis location: multiple sites Qualified Code (s): M86.8X0 - Other osteomyelitis, multiple sites Skin ulcer Qualifiers: Non-pressure ulcer stage: with necrosis of muscle Qualified Code(s): L98.493 - Non-pressure chronic ulcer of skin of other sites with necrosis of muscle Disposition: Admitted As Inpatient Condition: Serious Referrals: Jayson Gutierrez, PAC [Primary Care Provider] - Forms: ED Satisfaction Letter Time of Disposition: 00:47 General Adult HPI - General Chief complaint: ED Fever Stated complaint: Septic Time Seen by Provider: 08/02/18 22:29 Source: patient, EMS Limitations: no limitations Nursing Notes Reviewed: Yes Vital Signs Reviewed: Yes - History of Present Illness HPI Narrative: 52-year-old male presents from [facility] via EMS for evaluation of fever 104. Patient was discharged from this facility for an infection. Per EMS, this facility recommended transfer to [place] for continued management. Family patient refused thus discharged [place]. He presents for fever and continued concern for recurrence of this infection. ROS: Slight positive: As above Negative: Nausea, vomiting, cough, dyspnea, abdominal pain Pain Scale: 0 - Related Data Home Medications Medication Instructions Recorded Confirmed Albuterol Neb [Proventil Neb] 2.5 mg IH Q6H PRN 07/01/18 07/28/18 Baclofen [Lioresal] 5 mg PO TID 07/01/18 07/28/18 Doxycycline Hyclate [Vibramycin] 100 mg PO BID 07/01/18 07/28/18 Famotidine [Heartburn Prevention] 20 mg PO Q12H 07/01/18 07/28/18 Gabapentin [Neurontin] 400 mg PO TID 07/01/18 07/28/18 Heparin 5,000 unit SQ Q8H 07/01/18 07/28/18 Iron Polysaccharide Complex 150 mg PO BID 07/01/18 07/28/18 [Ferrex 150] Nortriptyline [Pamelor] 25 mg PO HS 07/01/18 07/28/18 Tramadol HCl [Ultram] 50 mg PO Q8H PRN 07/01/18 07/28/18 Valproic Acid (As Sodium Salt) 500 mg PO Q8H 07/01/18 07/28/18 [Valproic Acid] Ascorbic Acid [Vitamin C] 500 mg PO DAILY 07/28/18 07/28/18 Budesonide/Formoterol 80/4.5 2 puff IH BID 07/28/18 07/28/18 [Symbicort 80/4.5] Ertapenem [INVanz] 1,000 mg IVPB DAILY 07/28/18 07/28/18 Lactulose [Enulose] 30 gm PO TIDWM 07/28/18 07/28/18 Lidocaine [Aspercreme] 1 each TP DAILY 07/28/18 07/28/18 Melatonin [Melatin] 3 mg PO HS 07/28/18 07/28/18 Multivitamin [Multivitamins] 1 each PO DAILY 07/28/18 07/28/18 OLANZapine [Zyprexa] 10 mg PO QPM 07/28/18 07/28/18 Zinc Sulfate 220 mg PO BID 07/28/18 07/28/18 Previous Rx's Medication Instructions Recorded Aspirin 81 mg PO DAILY tab.chew 12/30/17 Allergies Allergy/AdvReac Type Severity Reaction Status Date / Time No Known Allergies Allergy Verified 08/02/18 22:22 All systems ED: reviewed and negative except as stated. Review of Systems: As Per HPI Past Medical History - Past Medical History Medical history: Reports: COPD, GERD, hepatitis, other Surgical history: Reports: non-contributory Psychiatric history: Reports: bipolar, schizophrenia - Social History Smoking Status: Current every day smoker Smokeless Tobacco Status: No Alcohol use: Reports: none Drug use: Reports: none Physical Exam Vital Signs Reviewed General: Patient is alert, oriented, and in no acute distress. Chronic indwelling Willis in place. Head: atraumatic, normocephalic Eye: normal appearance, PERRL, EOMI, no scleral icterus, no conjunctival injection ENT: mucous membranes moist, normal external ear exam Neck: normal inspection, trachea midline, full ROM Chest: normal inspection, symmetric chest rise Respiratory: Good respiratory effort. Bilateral breath sounds are clear without wheezing, crackles, or rhonchi. Cardiovascular: Regular rate and rhythm. No clicks, rubs, gallops, or murmors. Normal heart sounds. Abdomen: Bowel sounds present normoactive x-4 quadrants. Abdomen is soft, nondistended, and nontender. No guarding or rebound. No organomegaly noted. Musculoskeletal: Spontaneously moving all extremities.Extremity atrophy due to nonuse. Skin: warm, dry. Left lateral malleoli: Stage II ulcer approximately to 3 cm in diameter. Right heel: Stage II ulcer approximately 4-5 Center meters in diameter. Patient's sacrum and bilateral Botox have stage III ulcer with foul smell. Neuro: Alert and oriented x4. Sensation light touch intact. Psych: Patient's affect is appropriate for situation. - General Limitations: no limitations General appearance: alert Course Course Narrative: PMH: Spinal stenosis, paraplegia, mood disorder, hepatitis C. Chronic sacral osteomyelitis previously transferred to [facility] (June 2018 ) at the [facility] general surgery for possible plastic surgery intervention. Patient was admitted to 07/28 for fevers and subsequent sepsis. Blood cultures show no growth. Sacral decub ulcer cultures from June 2018 grew Proteus her bowels and Morganella sensitive to ertapenem and tobramycin. Patient was on ertapenem 1 g every 24-hour on last admission. Patient was offered and declined transfer to [facility]. EKG dated 2017 at 22:31 interpreted as sinus tachycardia with a rate of 129. KS 145, QTC 413. Normal axis. Nonspecific ST-T changes. Compared to previous dated 06/30/2018 showing no acute ischemic changes or comparison. Though afebrile on intake, patient is tachycardic with leukocytosis of 13.6. Leukocytosis nearly twice what it was 2 days ago. We will begin broad-spectrum antibiotics with the inclusion of ertapenem. Urinalysis drawn on fresh Willis catheter. Chest x-ray not taken secondary to patient's most likely source of skin versus urine. Lung sounds were clear. Vital Signs Temperature 99.5 F 08/02/18 22:23 Pulse Rate 126 08/02/18 22:23 Respiratory Rate 18 08/02/18 22:23 Blood Pressure 107/70 08/02/18 22:23 O2 Sat by Pulse Oximetry 98 08/02/18 22:23 Temperature 99.5 F 08/02/18 22:23 Pulse Rate 106 08/03/18 00:52 Respiratory Rate 14 08/03/18 00:52 Blood Pressure 106/61 08/03/18 00:52 O2 Sat by Pulse Oximetry 95 08/03/18 00:52 Oxygen Delivery Oxygen Delivery Room Air Medical Decision Making - Lab Data Result diagrams: 08/02/18 22:55 08/02/18 22:55 Lab Results 08/02/18 08/02/18 08/02/18 Range/Units 22:55 22:55 22:55 WBC 13.4 H D (4.3-11.1) K/mcL RBC 3.60 L (4.19-5.50) M/mcL Hgb 10.1 L D (12.9-16.9) g/dL Hct 31.1 L (37.5-50.1) % MCV 86.4 (83.0-100.0) fL MCH 28.1 (28.0-33.3) pg MCHC 32.5 (31.6-35.5) g/dL RDW 15.4 H (11.5-14.5) % Plt Count 298 (140-400) K/mcL MPV 8.3 L (9.4-12.4) fL Immature Gran % 0.6 (0-4) % Seg Neutrophils % 60.6 % Lymphocytes % 23.7 % Monocytes % 8.6 % Eosinophils % 6.1 % Basophils % 0.4 % Neutrophils # 8.1 (1.6-8.9) K/mcL Lymphocytes # 3.2 (0.6-4.6) K/mcL Monocytes # 1.2 (0.0-1.3) K/mcL Eosinophils # 0.8 H (0.0-0.6) K/mcL Basophils # 0.1 (0.0-0.2) K/mcL PT 12.4 H (9.4-12.1) Seconds INR 1.1 APTT 31.6 (26.0-36.0) Seconds Sodium 132 L (136-145) mEq/L Potassium 4.7 (3.5-5.1) mEq/L Chloride 99 (98-107) mEq/L Carbon Dioxide 27 (23-29) mEq/L BUN 22 H (6-20) mg/dL Creatinine 0.66 L (0.70-1.30) mg/dL Est GFR ( Amer) > 60 (> 60) Est GFR (Non-Af Amer) > 60 (> 60) BUN/Creatinine Ratio 33 H (6-26) Glucose 109 H (70-105) mg/dL Calculated Osmolality 278 L (280-300) Lactic Acid (0.5-2.2) mmol/L Calcium 9.5 (8.6-10.3) mg/dL Magnesium 2.0 (1.6-2.6) mg/dL Total Bilirubin 0.3 (0.3-1.0) mg/dL Direct Bilirubin 0.2 (0.0-0.2) mg/dL Indirect Bilirubin 0.1 (0.0-1.2) mg/dL AST 26 (13-39) Units/L ALT 29 (7-52) Units/L Alkaline Phosphatase 80 (34-104) Units/L Troponin I < 0.03 (< 0.04) ng/mL Serum Total Protein 7.1 (6.4-8.9) g/dL Albumin 3.0 L (3.5-5.7) g/dL Globulin 4.1 H (2.4-3.5) g/dL Albumin/Globulin Ratio 0.7 L (1.1-2.2) Urine Color (Yellow) Urine Clarity (Clear) Urine pH (5.0-8.0) pH Units Ur Specific [place] (1.010-1.025) Urine Protein (Neg-Trace) mg/dL Urine Glucose (UA) (Normal) mg/dL Urine Ketones (Negative) mg/dL Urine Blood (Negative) Urine Nitrite (Negative) Urine Bilirubin (Negative) Urine Urobilinogen (Normal) mg/dL Ur Leukocyte Esterase (Negative) Urine Microscopic RBC (0-3) per hpf Urine Microscopic WBC (0-3) per hpf Ur Squamous Epith Cells (None-Few) per lpf Calcium Oxalate Crystal Amorphous Sediment (Few) Urine Bacteria (None-Few) per hpf Ur Culture Indicated? (NO) 08/02/18 08/02/18 08/03/18 Range/Units 22:55 22:57 00:41 WBC (4.3-11.1) K/mcL RBC (4.19-5.50) M/mcL Hgb (12.9-16.9) g/dL Hct (37.5-50.1) % MCV (83.0-100.0) fL MCH (28.0-33.3) pg MCHC (31.6-35.5) g/dL RDW (11.5-14.5) % Plt Count (140-400) K/mcL MPV (9.4-12.4) fL Immature Gran % (0-4) % Seg Neutrophils % % Lymphocytes % % Monocytes % % Eosinophils % % Basophils % % Neutrophils # (1.6-8.9) K/mcL Lymphocytes # (0.6-4.6) K/mcL Monocytes # (0.0-1.3) K/mcL Eosinophils # (0.0-0.6) K/mcL Basophils # (0.0-0.2) K/mcL PT (9.4-12.1) Seconds INR APTT (26.0-36.0) Seconds Sodium (136-145) mEq/L Potassium (3.5-5.1) mEq/L Chloride (98-107) mEq/L Carbon Dioxide (23-29) mEq/L BUN (6-20) mg/dL Creatinine (0.70-1.30) mg/dL Est GFR ( Amer) (> 60) Est GFR (Non-Af Amer) (> 60) BUN/Creatinine Ratio (6-26) Glucose (70-105) mg/dL Calculated Osmolality (280-300) Lactic Acid 0.7 (0.5-2.2) mmol/L Calcium (8.6-10.3) mg/dL Magnesium (1.6-2.6) mg/dL Total Bilirubin (0.3-1.0) mg/dL Direct Bilirubin (0.0-0.2) mg/dL Indirect Bilirubin (0.0-1.2) mg/dL AST (13-39) Units/L ALT (7-52) Units/L Alkaline Phosphatase (34-104) Units/L Troponin I (< 0.04) ng/mL Serum Total Protein (6.4-8.9) g/dL Albumin (3.5-5.7) g/dL Globulin (2.4-3.5) g/dL Albumin/Globulin Ratio (1.1-2.2) Urine Color Yellow Yellow (Yellow) Urine Clarity Clear Clear (Clear) Urine pH 5.5 6.0 (5.0-8.0) pH Units Ur Specific [place] >= 1.030 H >= 1.030 H (1.010-1.025) Urine Protein >=300 H 100 H (Neg-Trace) mg/dL Urine Glucose (UA) Normal Normal (Normal) mg/dL Urine Ketones Negative Negative (Negative) mg/dL Urine Blood Moderate H Small H (Negative) Urine Nitrite Negative Negative (Negative) Urine Bilirubin Negative Negative (Negative) Urine Urobilinogen Normal Normal (Normal) mg/dL Ur Leukocyte Esterase Negative Small H (Negative) Urine Microscopic RBC 5-15 H (0-3) per hpf Urine Microscopic WBC 3-5 H (0-3) per hpf Ur Squamous Epith Cells Moderate H (None-Few) per lpf Calcium Oxalate Crystal Present Amorphous Sediment Moderate H (Few) Urine Bacteria Few (None-Few) per hpf Ur Culture Indicated? NO (NO)
[2018-08-02 23:15] LABS: Amorphous Sediment,Urine Moderate (Few); Bacteria,Urine Few per hpf (None-Few); Squamous Epithelial Cell,Urine Moderate per lpf (None-Few)
[2018-08-02] MEDS ORDERED: Ertapenem 1,000 MG in 0.9 % Sodium Chloride Mini Bag 100 ML IVPB STA (23:15)
[2018-08-02 23:18] LABS: Calcium Oxalate Crystals,Urine Present
[2018-08-02] MEDS: 0.9 % Sodium Chloride 1,000 ML IVC SCH (23:19)
[2018-08-02 23:29] LABS: Alanine Aminotransferase 29 Units/L (7-52); Albumin/Globulin Ratio 0.7 (1.1-2.2); Alkaline Phosphatase 80 Units/L (34-104); Aspartate Amino Transferase 26 Units/L (13-39); BUN/Creatinine Ratio 33 (6-26); Bilirubin,Direct 0.2 mg/dL (0.0-0.2); Bilirubin,Indirect 0.1 mg/dL (0.0-1.2); Bilirubin,Total 0.3 mg/dL (0.3-1.0); Blood Urea Nitrogen 22 mg/dL (6-20); Calcium 9.5 mg/dL (8.6-10.3); Carbon Dioxide 27 mEq/L (23-29); Chloride 99 mEq/L (98-107); Globulin 4.1 g/dL (2.4-3.5); Glucose 109 mg/dL (70-105); Osmolality,Calculated 278 (280-300); Potassium 4.7 mEq/L (3.5-5.1); Sodium 132 mEq/L (136-145); Total Protein 7.1 g/dL (6.4-8.9); Troponin I < 0.03 ng/mL (< 0.04); eGFR For Non-African Americans > 60 (> 60)
[2018-08-03] MEDS: 0.9 % Sodium Chloride 1,000 ML IVC SCH ×3 (00:16→15:07)
[2018-08-03 00:58] LABS: Bilirubin,Urine Negative (Negative); Blood,Urine Small (Negative); Clarity,Urine Clear (Clear); Color,Urine Yellow (Yellow); Glucose,Urine (UA) Normal (Normal); Ketones,Urine Negative (Negative); Leukocyte Esterase,Urine Small (Negative); Nitrite,Urine Negative (Negative); Protein,Urine 100 mg/dL (Neg-Trace); Specific Gravity,Urine >= 1.030 (1.010-1.025); Urobilinogen,Urine Normal (Normal)
--- NOTE | 2018-08-03 00:59 | Emergency Department Note ---
Disposition Clinical Impression: Tachycardia, Sacral decubitus ulcer, stage IV Sepsis Qualifiers: Sepsis type: sepsis due to unspecified organism Qualified Code(s): A41.9 - Sepsis, unspecified organism Osteomyelitis Qualifiers: Osteomyelitis type: other Osteomyelitis location: multiple sites Qualified Code (s): M86.8X0 - Other osteomyelitis, multiple sites Skin ulcer Qualifiers: Non-pressure ulcer stage: with necrosis of muscle Qualified Code(s): L98.493 - Non-pressure chronic ulcer of skin of other sites with necrosis of muscle Disposition: Admitted As Inpatient Condition: Serious General Adult HPI - General Chief complaint: ED Fever Stated complaint: Septic Time Seen by Provider: 08/02/18 22:29 Source: patient, EMS Limitations: no limitations Nursing Notes Reviewed: Yes Vital Signs Reviewed: Yes - History of Present Illness Pain Scale: 0 - Related Data Home Medications Medication Instructions Recorded Confirmed Albuterol Neb [Proventil Neb] 2.5 mg IH Q6H PRN 07/01/18 07/28/18 Baclofen [Lioresal] 5 mg PO TID 07/01/18 07/28/18 Doxycycline Hyclate [Vibramycin] 100 mg PO BID 07/01/18 07/28/18 Famotidine [Heartburn Prevention] 20 mg PO Q12H 07/01/18 07/28/18 Gabapentin [Neurontin] 400 mg PO TID 07/01/18 07/28/18 Heparin 5,000 unit SQ Q8H 07/01/18 07/28/18 Iron Polysaccharide Complex 150 mg PO BID 07/01/18 07/28/18 [Ferrex 150] Nortriptyline [Pamelor] 25 mg PO HS 07/01/18 07/28/18 Tramadol HCl [Ultram] 50 mg PO Q8H PRN 07/01/18 07/28/18 Valproic Acid (As Sodium Salt) 500 mg PO Q8H 07/01/18 07/28/18 [Valproic Acid] Ascorbic Acid [Vitamin C] 500 mg PO DAILY 07/28/18 07/28/18 Budesonide/Formoterol 80/4.5 2 puff IH BID 07/28/18 07/28/18 [Symbicort 80/4.5] Ertapenem [INVanz] 1,000 mg IVPB DAILY 07/28/18 07/28/18 Lactulose [Enulose] 30 gm PO TIDWM 07/28/18 07/28/18 Lidocaine [Aspercreme] 1 each TP DAILY 07/28/18 07/28/18 Melatonin [Melatin] 3 mg PO HS 07/28/18 07/28/18 Multivitamin [Multivitamins] 1 each PO DAILY 07/28/18 07/28/18 OLANZapine [Zyprexa] 10 mg PO QPM 07/28/18 07/28/18 Zinc Sulfate 220 mg PO BID 07/28/18 07/28/18 Previous Rx's Medication Instructions Recorded Aspirin 81 mg PO DAILY tab.chew 12/30/17 Allergies Allergy/AdvReac Type Severity Reaction Status Date / Time No Known Allergies Allergy Verified 08/02/18 22:22 Past Medical History - Past Medical History Medical history: Reports: COPD, GERD, hepatitis, other Surgical history: Reports: non-contributory Psychiatric history: Reports: bipolar, schizophrenia - Social History Smoking Status: Current every day smoker Smokeless Tobacco Status: No Alcohol use: Reports: none Drug use: Reports: none Physical Exam - General Limitations: no limitations General appearance: alert Course Vital Signs Temperature 99.5 F 08/02/18 22:23 Pulse Rate 126 08/02/18 22:23 Respiratory Rate 18 08/02/18 22:23 Blood Pressure 107/70 08/02/18 22:23 O2 Sat by Pulse Oximetry 98 08/02/18 22:23 Temperature 99.5 F 08/02/18 22:23 Pulse Rate 100 08/03/18 02:11 Respiratory Rate 12 08/03/18 02:11 Blood Pressure 116/69 08/03/18 02:11 O2 Sat by Pulse Oximetry 97 08/03/18 02:11 Oxygen Delivery Oxygen Delivery Room Air Medical Decision Making - Medical Records Medical records reviewed: Yes I reviewed the patient's medical records. - Lab Data Lab results reviewed: Yes I reviewed the patient's lab results. Result diagrams: 08/02/18 22:55 08/02/18 22:55 Lab Results 08/02/18 08/02/18 08/02/18 Range/Units 22:55 22:55 22:55 WBC 13.4 H D (4.3-11.1) K/mcL RBC 3.60 L (4.19-5.50) M/mcL Hgb 10.1 L D (12.9-16.9) g/dL Hct 31.1 L (37.5-50.1) % MCV 86.4 (83.0-100.0) fL MCH 28.1 (28.0-33.3) pg MCHC 32.5 (31.6-35.5) g/dL RDW 15.4 H (11.5-14.5) % Plt Count 298 (140-400) K/mcL MPV 8.3 L (9.4-12.4) fL Immature Gran % 0.6 (0-4) % Seg Neutrophils % 60.6 % Lymphocytes % 23.7 % Monocytes % 8.6 % Eosinophils % 6.1 % Basophils % 0.4 % Neutrophils # 8.1 (1.6-8.9) K/mcL Lymphocytes # 3.2 (0.6-4.6) K/mcL Monocytes # 1.2 (0.0-1.3) K/mcL Eosinophils # 0.8 H (0.0-0.6) K/mcL Basophils # 0.1 (0.0-0.2) K/mcL PT 12.4 H (9.4-12.1) Seconds INR 1.1 APTT 31.6 (26.0-36.0) Seconds Sodium 132 L (136-145) mEq/L Potassium 4.7 (3.5-5.1) mEq/L Chloride 99 (98-107) mEq/L Carbon Dioxide 27 (23-29) mEq/L BUN 22 H (6-20) mg/dL Creatinine 0.66 L (0.70-1.30) mg/dL Est GFR ( Amer) > 60 (> 60) Est GFR (Non-Af Amer) > 60 (> 60) BUN/Creatinine Ratio 33 H (6-26) Glucose 109 H (70-105) mg/dL Calculated Osmolality 278 L (280-300) Lactic Acid (0.5-2.2) mmol/L Calcium 9.5 (8.6-10.3) mg/dL Magnesium 2.0 (1.6-2.6) mg/dL Total Bilirubin 0.3 (0.3-1.0) mg/dL Direct Bilirubin 0.2 (0.0-0.2) mg/dL Indirect Bilirubin 0.1 (0.0-1.2) mg/dL AST 26 (13-39) Units/L ALT 29 (7-52) Units/L Alkaline Phosphatase 80 (34-104) Units/L Troponin I < 0.03 (< 0.04) ng/mL Serum Total Protein 7.1 (6.4-8.9) g/dL Albumin 3.0 L (3.5-5.7) g/dL Globulin 4.1 H (2.4-3.5) g/dL Albumin/Globulin Ratio 0.7 L (1.1-2.2) Urine Color (Yellow) Urine Clarity (Clear) Urine pH (5.0-8.0) pH Units Ur Specific [place]far[place] (1.010-1.025) Urine Protein (Neg-Trace) mg/dL Urine Glucose (UA) (Normal) mg/dL Urine Ketones (Negative) mg/dL Urine Blood (Negative) Urine Nitrite (Negative) Urine Bilirubin (Negative) Urine Urobilinogen (Normal) mg/dL Ur Leukocyte Esterase (Negative) Urine Microscopic RBC (0-3) per hpf Urine Microscopic WBC (0-3) per hpf Ur Squamous Epith Cells (None-Few) per lpf Calcium Oxalate Crystal Amorphous Sediment (Few) Urine Bacteria (None-Few) per hpf Hyaline Casts (None-Few) per lpf Urine Mucus (Few) Ur Culture Indicated? (NO) 08/02/18 08/02/18 08/03/18 Range/Units 22:55 22:57 00:41 WBC (4.3-11.1) K/mcL RBC (4.19-5.50) M/mcL Hgb (12.9-16.9) g/dL Hct (37.5-50.1) % MCV (83.0-100.0) fL MCH (28.0-33.3) pg MCHC (31.6-35.5) g/dL RDW (11.5-14.5) % Plt Count (140-400) K/mcL MPV (9.4-12.4) fL Immature Gran % (0-4) % Seg Neutrophils % % Lymphocytes % % Monocytes % % Eosinophils % % Basophils % % Neutrophils # (1.6-8.9) K/mcL Lymphocytes # (0.6-4.6) K/mcL Monocytes # (0.0-1.3) K/mcL Eosinophils # (0.0-0.6) K/mcL Basophils # (0.0-0.2) K/mcL PT (9.4-12.1) Seconds INR APTT (26.0-36.0) Seconds Sodium (136-145) mEq/L Potassium (3.5-5.1) mEq/L Chloride (98-107) mEq/L Carbon Dioxide (23-29) mEq/L BUN (6-20) mg/dL Creatinine (0.70-1.30) mg/dL Est GFR ( Amer) (> 60) Est GFR (Non-Af Amer) (> 60) BUN/Creatinine Ratio (6-26) Glucose (70-105) mg/dL Calculated Osmolality (280-300) Lactic Acid 0.7 (0.5-2.2) mmol/L Calcium (8.6-10.3) mg/dL Magnesium (1.6-2.6) mg/dL Total Bilirubin (0.3-1.0) mg/dL Direct Bilirubin (0.0-0.2) mg/dL Indirect Bilirubin (0.0-1.2) mg/dL AST (13-39) Units/L ALT (7-52) Units/L Alkaline Phosphatase (34-104) Units/L Troponin I (< 0.04) ng/mL Serum Total Protein (6.4-8.9) g/dL Albumin (3.5-5.7) g/dL Globulin (2.4-3.5) g/dL Albumin/Globulin Ratio (1.1-2.2) Urine Color Yellow Yellow (Yellow) Urine Clarity Clear Clear (Clear) Urine pH 5.5 6.0 (5.0-8.0) pH Units Ur Specific [place] >= 1.030 H >= 1.030 H (1.010-1.025) Urine Protein >=300 H 100 H (Neg-Trace) mg/dL Urine Glucose (UA) Normal Normal (Normal) mg/dL Urine Ketones Negative Negative (Negative) mg/dL Urine Blood Moderate H Small H (Negative) Urine Nitrite Negative Negative (Negative) Urine Bilirubin Negative Negative (Negative) Urine Urobilinogen Normal Normal (Normal) mg/dL Ur Leukocyte Esterase Negative Small H (Negative) Urine Microscopic RBC 5-15 H 3-5 H (0-3) per hpf Urine Microscopic WBC 3-5 H 5-15 H (0-3) per hpf Ur Squamous Epith Cells Moderate H Few (None-Few) per lpf Calcium Oxalate Crystal Present Amorphous Sediment Moderate H (Few) Urine Bacteria Few Few (None-Few) per hpf Hyaline Casts None Seen (None-Few) per lpf Urine Mucus Few (Few) Ur Culture Indicated? NO YES A (NO) - Radiology Data Radiology results reviewed: Yes I reviewed the patient's radiology results. Chest X-Ray 08/03/18 00:54 IMPRESSION: Left basilar atelectasis or pneumonia. D/ / Lambert Alfonso MD / Lambert Alfonso MD Interpreting Provider: Lambert Alfonso MD - EKG Data EKG #1 EKG attestation: Yes I reviewed and interpreted this EKG. EKG results narrative: EKG shows a sinus tachycardia with ventricular rate of 129. Nonspecific ST elevation, probable normal early repolarization. Attestation Statement - Attestation Attestation: I, Derek Packer MD, personally evaluated this patient and discussed their management with the resident physician. I reviewed the resident's note and agree with the documented findings, medical decision making, and plan of care. 52-year-old male who appears much older than actual age presents to the emergency department from a local group home for probable sepsis. Patient was recently in the hospital here for sepsis and transferred to the group home. long term reported he spiked a temperature to 104 tonight. He has a large infected sacral decubitus which is dressed. Patient appears somewhat drowsy however he responds appropriately to verbal stimuli and answers questions appropriately. He is oriented 3. No cyanosis or diaphoresis. He complains of pain in his lower back and sacral area which is chronic. He denies chest pain. He denies feeling short of breath. On examination patient is a cachectic male in no acute distress. He responds to verbal stimuli and is oriented. There is no cyanosis or diaphoresis. Mucous membranes are extremely dry. Patient is hot to touch. Breath sounds are decreased but equal bilaterally. No definite rales or wheezes noted. Heart is tachycardic and regular. Abdomen is soft with normal bowel sounds. No obvious tenderness. Patient has a large deep sacral decubitus with some greenish drainage and foul odor. Labs reviewed. EKG shows a sinus tachycardia. Blood cultures obtained and antibiotics initiated. The hospitalist, Dr. Batista, was consulted and accepted admission of the patient.
[2018-08-03] MEDS ORDERED: Ertapenem 1,000 MG in 0.9 % Sodium Chloride Mini Bag 100 ML IVPB STA ×2 (01:02→01:16)
[2018-08-03 01:07] LABS: Bacteria,Urine Few per hpf (None-Few); Hyaline Casts,Urine None Seen per lpf (None-Few); Mucus,Urine Few (Few); Squamous Epithelial Cell,Urine Few per lpf (None-Few)
[2018-08-03] MEDS ORDERED: Naloxone 0.4 MG/ML INJ IVP PRN ×2 (01:07→01:13)
--- NOTE | 2018-08-03 01:22 | Internal Med History&Physical ---
Date of Encounter: 08/04/18 Time of Encounter: 01:16 Internal Medicine - H&P: HPI Chief complaint: Fever History of present illness: Patient is 52 y/o male wiith past medical history significant for spinal stenosis and paraplegic, mood disorder and hepatitis C who was recently discharged 3 days ago for treatment of acute versus chronic sacral osteomyelitis and discharged on IV antibiotics. Patient again presents from the [facility] with a reported fever spike of 104. Patient found to be mildly tachycardic in the 120s. His laboratory findings are again notable for a slight white blood cell count of 13.3 and afebrile. Patients sacral wound cultures last time (07/01/18) grew Proteus mirabilis and Morganella which were both only sensitive to ertapenem. Patient was seen by Infectious disease with recommendations that patient be transferred to [facility] for evaluation and management by plastic surgery for deep debridement of bone due to persistent osteomyelitis. Patient however declined to be transferred to [facility] and wished to be transferred back to [facility] facility. Patient currently denies any fever, chills or pain. Past Med Surg Social Fam HX - Past Medical History Medical history: COPD, GERD, hepatitis, other Additional medical history: spinal stenosis, anemia, encephalopathy, GI hemorrhage,MRSA, osteomyelitis, pressure ulcer Psychiatric history: bipolar, schizophrenia - Past Surgical History Surgical History: non-contributory Additional surgical history: back/spine surgery, evacuation of epidural abscess , I&D, C5-T1 laminectomy December 2017 - Social History Smoking Status: Current every day smoker Smokeless Tobacco Status: No Alcohol use: none Drug use: none - Family History Father Living Status: Hx Family Cardiac Disorders: Yes ([place]) Mother Living Status: Hx Family Cancer: Yes Internal Medicine - H&P: Meds Aspirin 81 mg PO DAILY tab.chew 12/30/17 [Rx] Albuterol Neb [Proventil Neb] 2.5 mg IH Q6H PRN 07/01/18 [History] Baclofen [Lioresal] 5 mg PO TID 07/01/18 [History] Doxycycline Hyclate [Vibramycin] 100 mg PO BID 07/01/18 [History] Famotidine [Heartburn Prevention] 20 mg PO Q12H 07/01/18 [History] Gabapentin [Neurontin] 400 mg PO TID 07/01/18 [History] Heparin 5,000 unit SQ Q8H 07/01/18 [History] Iron Polysaccharide Complex [Ferrex 150] 150 mg PO BID 07/01/18 [History] Nortriptyline [Pamelor] 25 mg PO HS 07/01/18 [History] Tramadol HCl [Ultram] 50 mg PO Q8H PRN 07/01/18 [History] Valproic Acid (As Sodium Salt) [Valproic Acid] 500 mg PO Q8H 07/01/18 [History] Ascorbic Acid [Vitamin C] 500 mg PO DAILY 07/28/18 [History] Budesonide/Formoterol 80/4.5 [Symbicort 80/4.5] 2 puff IH BID 07/28/18 [History ] Ertapenem [INVanz] 1,000 mg IVPB DAILY 07/28/18 [History] Lactulose [Enulose] 30 gm PO TIDWM 07/28/18 [History] Lidocaine [Aspercreme] 1 each TP DAILY 07/28/18 [History] Melatonin [Melatin] 3 mg PO HS 07/28/18 [History] Multivitamin [Multivitamins] 1 each PO DAILY 07/28/18 [History] OLANZapine [Zyprexa] 10 mg PO QPM 07/28/18 [History] Zinc Sulfate 220 mg PO BID 07/28/18 [History] 3 Allergy/AdvReac Type Severity Reaction Status Date / Time No Known Allergies Allergy Verified 08/02/18 22:22 All Systems PM: A 10-system review of systems was performed and is negative for pertinent findings except as documented above in the HPI. - Constitutional Constitutional: no chills, no fever(s), no night sweats - EENT Eyes: no change in vision, no discharge, no pain, no photophobia Ears: no ear discharge, no ear pain, no tinnitus Nose, mouth and throat: no dysphagia, no nasal discharge, no neck pain, no sore throat - Cardiovascular Cardiovascular ROS IM: no chest pain, no diaphoresis, no dyspnea, no lightheadedness, no palpitations, no syncope - Respiratory Respiratory: no cough, no dyspnea, no wheezing, no excessive phlegm production - Gastrointestinal Gastrointestinal: no abdominal pain, no diarrhea, no hematemesis, no hematochezia, no melena, no nausea, no vomiting - Musculoskeletal Musculoskeletal ROS IM: no numbness, no tingling - Integumentary Integumentary IM: no rash, no unusual bruising - Neurological Neurological ROS: no confusion, no convulsions, no focal weakness, no numbness, no tingling, no tremor(s) - Hematologic/Lymphatic Hematologic/Lymphatic: no easy bruising - Constitutional Vitals: Temp Pulse Resp BP Pulse Ox 99.5 F 106 14 106/61 95 08/02/18 22:23 08/03/18 00:52 08/03/18 00:52 08/03/18 00:52 08/03/18 00:52 Exam: General: Alert and oriented 3. Patient lying in bed in no acute distress Skin: Several large decubitus ulcers. The largest one measuring approximately 10 cm in diameter. No evidence of drainage or surrounding erythema. Foul- smelling. 4 cm ulcer near the left [place]. No evidence of surrounding erythema or purulent drainage 5 cm ulcer involving the right heel with black eschar covering the wound. HEENT:EOM, pupils equal, round and reactive. Cardiovascular:Normal S1 & S2, no rubs, murmurs or gallops. No JVD. Pulse regular. Lungs:Normal breath sounds, no wheezes or crackles. Abdomen:Soft, non-tender, no rigidity. Extremities:No deformity, no edema or tenderness, no joint swelling or clubbing. Neurological:Normal cognition and motor skills. Pulses:Carotid and radial pulses normal +2. Rest of the physical exam is non contributory Internal Med - H&P Results - Labs CBC & Chem 7: 08/04/18 05:48 08/04/18 05:48 - Assessment and plan (1) Fever Current Visit: Yes Status: Acute Assessment and plan: Reported fever of 104 at [facility] facility in the setting of multiple large sacral ulcers and Osteomyelitis. Patient currently afebrile. Will obtain blood cultures. Add Vanco and switched to meropenem for broader spectrum coverage. ID and Wound care consult. Qualifiers: Fever type: unspecified Qualified Code(s): R50.9 - Fever, unspecified (2) Osteomyelitis Current Visit: Yes Status: Acute Assessment and plan: Currently on long-term Ertapenem at facility for treatment of osteomyelitis involving the sacrum and coccyx. We will switch to meropenem and add vancomycin for broader spectrum coverage in the setting of fever and elevated white blood cell count. Qualifiers: Osteomyelitis type: other Osteomyelitis location: multiple sites Qualified Code(s): M86.8X0 - Other osteomyelitis, multiple sites (3) Sepsis Current Visit: Yes Status: Acute Assessment and plan: Patient presents with fever and elevated white blood cell count with likely source of infection underlying osteomyelitis and decubitus ulcers. No evidence of severe sepsis or septic shock. Lactic acid 0.7. Extend spectrum of antibiotic coverage. Supportive care. Qualifiers: Sepsis type: sepsis due to unspecified organism Qualified Code(s): A41.9 - Sepsis, unspecified organism (4) Pressure ulcer of sacral region, stage 4 Current Visit: Yes Status: Chronic Assessment and plan: During previous admission, Infectious disease recommended that patient be transferred to [facility] for evaluation and management by plastic surgery for deep debridement of bone due to persistent osteomyelitis. I reiterated to the patient that evaluation by plastic surgery would be needed. Unclear if he is more amenable at this time. (5) Tachycardia Current Visit: Yes Status: Acute Assessment and plan: Tachycardia with a heart rate in the 120s upon presentation. Sinus rhythm. Heart rate has responded to fluid administration. We will continue to monitor on telemetry. (6) DVT prophylaxis Current Visit: Yes Status: Acute Assessment and plan: Subcutaneous heparin - Time Spent With Patient Total time spent is greater than 50% in coordination of care (as documented) at patient's floor/unit and/or counseling patient:
[2018-08-03] MEDS ORDERED: Piperacillin/Tazobactam 3.375 GM in 0.9 % Sodium Chloride Mini Bag 100 ML IVP ONE (06:00)
[2018-08-03] MEDS: *HR* Heparin 5,000 UNIT/ML VIAL SQ SCH ×2 (08:01→15:06)
[2018-08-03 08:17] LABS: Basophils % 0.3 %; Eosinophils # 0.7 K/mcL (0.0-0.6); Eosinophils % 6.4 %; Hematocrit 27.5 % (37.5-50.1); Hemoglobin 8.7 g/dL (12.9-16.9); Immature Granulocytes % 0.6 % (0-4); Lymphocytes # 2.1 K/mcL (0.6-4.6); Lymphocytes % 19.3 %; Mean Corpuscular HGB Conc 31.6 g/dL (31.6-35.5); Mean Corpuscular Hemoglobin 27.8 pg (28.0-33.3); Mean Corpuscular Volume 87.9 fL (83.0-100.0); Mean Platelet Volume 8.5 fL (9.4-12.4); Monocytes % 9.2 %; Platelet Count 236 K/mcL (140-400); Red Blood Count 3.13 M/mcL (4.19-5.50); Red Cell Distribution Width 15.4 % (11.5-14.5); Segmented Neutrophils % 64.2 %
[2018-08-03 08:37] LABS: Alanine Aminotransferase 23 Units/L (7-52); Albumin 2.5 g/dL (3.5-5.7); Albumin/Globulin Ratio 0.7 (1.1-2.2); Alkaline Phosphatase 68 Units/L (34-104); Aspartate Amino Transferase 19 Units/L (13-39); BUN/Creatinine Ratio 37 (6-26); Bilirubin,Total 0.3 mg/dL (0.3-1.0); Blood Urea Nitrogen 18 mg/dL (6-20); Calcium 8.9 mg/dL (8.6-10.3); Carbon Dioxide 29 mEq/L (23-29); Chloride 101 mEq/L (98-107); Globulin 3.4 g/dL (2.4-3.5); Glucose 108 mg/dL (70-105); Osmolality,Calculated 278 (280-300); Potassium 3.8 mEq/L (3.5-5.1); Sodium 133 mEq/L (136-145); Total Protein 5.9 g/dL (6.4-8.9); eGFR For Non-African Americans > 60 (> 60)
[2018-08-03] MEDS ORDERED: Ertapenem 1,000 MG in 0.9 % Sodium Chloride Mini Bag 100 ML IVPB SCH (09:00)
[2018-08-03] MEDS: Meropenem 1,000 MG in 0.9 % Sodium Chloride Mini Bag 100 ML IVPB SCH ×2 (09:08→15:05)
--- NOTE | 2018-08-03 11:22 | Infectious Disease Consult ---
Date of Encounter: 08/03/18 Time of Encounter: 11:18 Assessment and Plan (1) Sepsis Status: Acute Assessment and plan: The patient had two SIRS Criteria on admission plus fever at the F. Etiology unclear. The patient does have known osteomyelitis of the sacrum/coccyx , but has been on appropriate antibiotic therapy. Additionally, his CXR shows possible PNA. He also has a large pressure ulcer to the right heel, although clinically it does not appear infected. He also has a RUE PICC line, but it does not appear infected on exam. Improved. WBC has normalized. Tachycardia improved. He has been afebrile since admission. Blood culture drawn 08/02/18 x 1 set is pending. Repeat blood cultures x 2 sets now. Qualifiers: Sepsis type: sepsis due to unspecified organism Qualified Code(s): A41.9 - Sepsis, unspecified organism (2) Osteomyelitis Status: Acute Assessment and plan: CT of the abdomen and pelvis completed during his most recent hospitalization reveals large sacral decubitus ulcer with underlying osseous irregularity involving the sacrum and coccyx. Possibly the left ischium and left greater trochanter as well suggesting osteomyelitis. Most recent culture from 07/01/18 grew Proteus mirabilis S: Ertapenem, Zosyn, tobramycin and Morganella Morgagni S: Carbapenems, aminoglycosides, Bactrim Dr. Durham did speak with radiology to discuss the CT findings and this appears to be acute on chronic osteomyelitis. Review of [facility] records reveals that the patient was discharged from [facility] on Ertapenem. The patient declines exammination of the wounds today, but documentation reveals grossly purulent drainage and foul odor from the wounds. He again declines transfer to [facility] despite our recommendations. Repeat ESR and CRP. Continue Meropenem 1 gram IV Q8H. Continue Vancomycin IV. Pharmacy to dose. Goal trough ~15. Duration of treatment likely 6-8 weeks. Again recommend transfer to [facility] for wound care and plastic surgery evaluation. Continue contact isolation per protocol. Monitor renal function and for drug toxicity and dose-adjust antibiotics. Qualifiers: Osteomyelitis type: other Osteomyelitis location: multiple sites Qualified Code(s): M86.8X0 - Other osteomyelitis, multiple sites (3) Pneumonia Status: Suspected Assessment and plan: Causative organism: Unclear. CXR shows left basilar atelectasis vs. PNA. Get RIP. Check S. pneumo and Legionella UATs. Send sputum for culture if the patient is able to provide an adequate specimen. Get CT chest with contrast to evaluate. Continue Vanc and Talib as above. Duration of treatment depends on the clinical picture. Monitor renal function and for drug toxicity and dose-adjust antibiotics. Qualifiers: Pneumonia type: due to unspecified organism Laterality: right Lung location: unspecified part of lung Qualified Code(s): J18.9 - Pneumonia, unspecified organism (4) UTI (urinary tract infection) Status: Suspected Assessment and plan: Urinalysis positive for pyuria, but the patient is asymptomatic, although I'm not sure if the patient has full sensation of his bladder given his paresis to the BLE. Await urine culture that is pending. Continue antibiotics as above. If positive for UTI, recommend mccallum catheter exchange. Qualifiers: Urinary tract infection type: acute cystitis Hematuria presence: with hematuria Qualified Code(s): N30.01 - Acute cystitis with hematuria (5) Pressure ulcer of both feet, unstageable Status: Acute Assessment and plan: Location: Right heel and left lateral ankle. Likely secondary to ongoing pressure. Clinically, does not appear infected, but there is a large amount of eschar noted. Recommend podiatry to evaluate. Wound care per the Podiatry team. (6) Pressure ulcer of sacral region, stage 4 Status: Chronic Assessment and plan: Follows with [facility] wound care. Aggressive offloading and wound care required. Recommend transfer to [facility] for plastic surgery evaluation. (7) Weakness of both lower extremities Status: Chronic (8) COPD (chronic obstructive pulmonary disease) Status: Chronic Qualifiers: COPD type: emphysema Emphysema type: unspecified Qualified Code(s): J43.9 - Emphysema, unspecified (9) Hepatitis C Status: Chronic Qualifiers: Viral hepatitis chronicity: unspecified Hepatic coma status: without hepatic coma Qualified Code(s): B19.20 - Unspecified viral hepatitis C without hepatic coma (10) Tobacco use Status: Chronic (11) Epidural abscess Status: Resolved Assessment and plan: Diagnosed in December. Discharged from [facility] on chronic oral doxycycline for chronic suppressive therapy due to hardware in his back. Continue Vancomycin as above for now, but re-start doxycycline if/when Vanc is stopped. Per [facility], continue through 09/22/18. Infectious Disease HPI - Data of Consult Patient: known to practice within the last 3 years Consult date: 08/03/18 Requesting Physician: Wilbur Batista MD Primary Care Provider: Jayson Gutierrez - Consult Narrative Reason for consult: Fever History of present illness: Mr. Carrasco is a 52 year old male with past medical history of COPD, GERD, hepatitis C, spinal stenosis, bipolar disorder, status post cervical fusion in February 2017, and epidural abscess with evacuation of laminectomy in December 2017 with multiple chronic sacral decubitus ulcers stage IV currently undergoing treatment for chronic osteomyelitis. The patient was admitted to the hospital August 02 for fever. We are consulted August 03 for further recommendations for fever. Briefly, the patient is a 52-year-old male with past medical history as stated above. The patient is well-known to the ID service as we have been consulted on his case in the past. Most recently, the patient was admitted to the hospital on July 28 for fever. While hospitalized, the patient remained afebrile, but imaging revealed acute osteomyelitis of the sacral region. We recommended that he be transferred to [facility] for evaluation by the plastic surgery and wound care team as he had been established with them previously, but the patient declined. His white blood cell count normalized and he remained afebrile so he was discharged back to the extended care facility on Friday on Iv Ertapenem. Apparently, yesterday, he developed a fever of 100.4 and came back to the emergency room for evaluation. Upon arrival, the patient was afebrile, but he was tachycardic and have leukocytosis with neutrophilic predominance. His lactic acid and serum creatinine levels were normal. LFTs were within normal limits. Urine was negative. Urinalysis was obtained that appeared contaminated. He had a chest x-ray that showed left basilar atelectasis or pneumonia. Peripheral blood cultures were obtained 1 set and he was admitted to the hospital for further evaluation. Since admission, the patient has remained afebrile. His tachycardia has improved. His white blood cell count is normal today. Repeat urinalysis is positive for small amounts of leukocyte esterase, 5-15 white blood cells, and few bacteria. Culture is pending. Currently, the patient is on Vanco and meropenem. We have been asked to evaluate and make further recommendations. During my exam today, the patient states that she overall he has been feeling fine. He reports chronic neck, back, and bilateral lower extremity pain that are at baseline. He states that his heart rate was a little elevated after he worked with physical therapy, and he thinks that is why they sent him to the emergency department. He denies any headache or dizziness. He denies any congestion, earache, or sore throat. He denies any chest pain, shortness of breath, or cough. He denies any nausea, vomiting, diarrhea, constipation. He reports the output from his colostomy has been adequate. He denies any abdominal pain or appetite changes. The patient currently lives at the [facility]. He smokes 1 pack cigarettes per day. He denies any alcohol or illicit drug use currently. He does have a history of IV drug use that led to an epidural abscess back in December. He is hep C positive. Denies HIV or tuberculosis or other chronic infectious diseases. CC: Wilbur Batista MD Past Med Surg Social Fam HX - Past Medical History Attestation: Yes The following information was validated with the patient. Source: patient, old records reviewed, nursing notes reviewed Medical history: COPD, GERD, hepatitis, other Additional medical history: spinal stenosis, anemia, encephalopathy, GI hemorrhage,MRSA, osteomyelitis, pressure ulcer Psychiatric history: bipolar, schizophrenia - Past Surgical History Surgical History: non-contributory Additional surgical history: back/spine surgery, evacuation of epidural abscess , I&D, C5-T1 laminectomy December 2017 - Social History Smoking Status: Current every day smoker Smokeless Tobacco Status: No Alcohol use: none Drug use: none - Family History Father Living Status: Hx Family Cardiac Disorders: Yes ([place]) Mother Living Status: Hx Family Cancer: Yes Infectious Disease-CN:Meds Aspirin 81 mg PO DAILY tab.chew 12/30/17 [Rx] Albuterol Neb [Proventil Neb] 2.5 mg IH Q6H PRN 07/01/18 [History] Baclofen [Lioresal] 5 mg PO TID 07/01/18 [History] Doxycycline Hyclate [Vibramycin] 100 mg PO BID 07/01/18 [History] Famotidine [Heartburn Prevention] 20 mg PO Q12H 07/01/18 [History] Gabapentin [Neurontin] 400 mg PO TID 07/01/18 [History] Heparin 5,000 unit SQ Q8H 07/01/18 [History] Iron Polysaccharide Complex [Ferrex 150] 150 mg PO DAILY 07/01/18 [History] Nortriptyline [Pamelor] 25 mg PO HS 07/01/18 [History] Tramadol HCl [Ultram] 50 mg PO Q8H PRN 07/01/18 [History] Valproic Acid (As Sodium Salt) [Valproic Acid] 500 mg PO Q8H 07/01/18 [History] Ascorbic Acid [Vitamin C] 500 mg PO BID 07/28/18 [History] Budesonide/Formoterol 80/4.5 [Symbicort 80/4.5] 2 puff IH BID 07/28/18 [History ] Ertapenem [INVanz] 1,000 mg IVPB DAILY 07/28/18 [History] Lactulose [Enulose] 20 gm PO TIDWM 07/28/18 [History] Lidocaine [Aspercreme] 1 each TP DAILY 07/28/18 [History] Melatonin [Melatin] 3 mg PO HS 07/28/18 [History] Multivitamin [Multivitamins] 1 each PO DAILY 07/28/18 [History] OLANZapine [Zyprexa] 10 mg PO QPM 07/28/18 [History] Zinc Sulfate 220 mg PO BID 07/28/18 [History] 0.9 % Sodium Chloride [Monoject Prefill] 1 appl IV BID 08/04/18 [History] Acetaminophen [Tylenol] 650 mg PO Q8H PRN 08/04/18 [History] Patient Taking Own Medication [Patient Taking Own Medication] 30 ml IR Q12H PRN 08/04/18 [History] 3 Allergy/AdvReac Type Severity Reaction Status Date / Time No Known Allergies Allergy Verified 08/02/18 22:22 All systems: reviewed and no additional remarkable complaints except as stated Exam - Constitutional Vitals: Temp Pulse Resp BP Pulse Ox 97.5 F L 94 18 117/70 99 08/03/18 11:04 08/03/18 11:04 08/03/18 11:04 08/03/18 11:04 08/03/18 11:04 General appearance: cooperative, no acute distress, thin - Head Head exam: Present: atraumatic, normal inspection, normocephalic - Eye Eye exam: Present: EOMI, normal appearance, PERRL Pupils: Present: normal accommodation - ENT ENT exam: Present: mucous membranes dry - Neck Neck exam: Present: normal inspection - Respiratory Respiratory exam: Present: CTAB. Absent: rales, respiratory distress, rhonchi, wheezes - Cardiovascular Cardiovascular exam: Present: RRR, +S1, +S2 - GI/Abdominal GI/Abdominal exam: Present: normal bowel sounds, soft. Absent: distended, tenderness Additional comments: Mccallum catheter noted to be draining clear yellow urine. Colostomy noted to the left side of the abdomen was soft brown stool noted in the collection bag. - Extremities Exam Extremities exam: Absent: joint swelling, normal inspection (Contractures noted to the bilateral lower extremities with severe muscle atrophy.), pedal edema, tenderness Additional comments: Unstageable ulcer noted to the right heel with large area of necrosis. No foul odor or drainage noted. No surrounding fluctuance, erythema, or tenderness noted. Brand grade 2 ulcer noted to the lateral aspect of the left ankle. Wound bed is pink and dry with scant yellow drainage noted. No surrounding erythema, fluctuance, tenderness, or warmth noted. Superficial ulcerations noted to the medial and lateral aspects of the left foot without evidence of infection. - Back Exam Additional comments: Deferred per patient request. - Neurological Exam Neurological exam: Present: alert, oriented X3, no focal deficits (Moves all extremities 4 on command with severe weakness noted to the bilateral lower extremities) - Psychiatric Psychiatric exam: Present: normal affect, normal mood - Skin Skin exam: Present: dry, intact, normal color, warm - Additional findings Additional findings: PICC line noted to the right upper extremity with transparent dressing clean, dry, and intact. No surrounding erythema, warmth, fluctuance, or tenderness noted. Infectious Disease CN: Results - Labs CBC & Chem 7: 08/04/18 05:48 08/04/18 05:48 Consult Discharge Plan - Plan Referrals: Jayson Gutierrez, PAC [Primary Care Provider] - - Attending Attestation I examined this patient and my medical decision-making was reviewed with the Resident Physician. I agree with the documented findings, disposition and treatment plan as described except to the extent set forth below. Patient is a 50-year-old gentleman with a unfortunate past medical history who is well-known to our service who has severe osteomyelitis of the coccyx with large decubitus ulcer of the sacrum and coccyx presented last week with sepsis like picture. At that time recommended patient gets transferred to [facility] for plastics to the aggressive debridement. Cultures grew Proteus mirabilis and Morganella morganii. We treated the patient with ertapenem. Patient apparently was transferred back to the senior care. Came back with sepsis like picture. Assessment and plan: Sepsis could be still due to the osteomyelitis but there is a possibility of new pneumonia Continue ertapenem And vancomycin check urine legionella and pneumococcal antigen repeat blood cultures monitor labs and for drug toxicity prognosis is guarded I still recommended patient gets transferred to [facility] without treatment with aggressive debridement and removal "he was having continuous nidus of infection and he will never get better.
--- NOTE | 2018-08-03 11:31 | Internal Med Progress Note ---
Hospitalist Progress Note - Encounter Date of Encounter: 08/03/18 Time of Encounter: 09:20 - Subjective Interval History: Pt was seen and assessed at [facility] at 0920. He is alert, awake, good historian. Pt states that he does not want to go to [facility] for surgical debridement. Medication list has not been reconciled yet, no home meds have been restarted. Pt is aware that he will be here for a few days and that he will be seen by ID again. Per primary RN, pt is refusing to be turned, she is going to order a bed that will turn him. - Exam Vitals: Temp Pulse Resp BP Pulse Ox 97.5 F L 94 18 117/70 99 08/03/18 11:04 08/03/18 11:04 08/03/18 11:04 08/03/18 11:04 08/03/18 11:04 Exam: General: Pt resting quietly on bed, no distress. Skin: pwd, no rashes, lesions, redness, pt with pressure ulcers that were present prior to admission. Neurological: Pt is alert and awake, oriented x 3, Speech is clear, PERRLA, EOMI , no nystagmus, no pronator drift. strength equal x 4 extremities HEENT: mucous mumbranes moist, no conjuctival pallor Neck: supple, no tracheal deviation, no lymphadenopathy, tenderness, no thyromegaly Heart: S1S2 heard without gallops, clicks, murmurs, no bradycardia or tachycardia, bilateral radial pulses palpable +2. Lungs: clear throughout without wheezing, rales, or ronchi, respirations are unlabored Abdomen: soft and non tender with bowel sound present, no hepatomegaly. Psych: Normal affect with good eye contact - Assessment and Plan (1) DVT prophylaxis Current Visit: Yes Status: Acute Assessment and Plan: Heparin SQ (2) Sepsis Current Visit: Yes Status: Acute Assessment and Plan: Pt admitted with fever, leukocytosis. Likely source decubitus ulcers and osteomyelitis. Lactic 0.7 on admission Leukocytosis and fever resolved today, but pt was hypotensive and tachycardic this a.m. Vitals increased to q1h and pt was given a 500ml bolus, vitals returned to baseline. Vitals q4h Continue to monitor closely for sepsis/SIRS IVF, IV antibiotics, cardic monitor, vitals q4 h, monitor labs. (3) Pressure ulcer of sacral region, stage 4 Current Visit: Yes Status: Chronic Assessment and Plan: Chronic. Pt was to be transferred to [facility] last admission for surgical debridement of bone due to persistent osteomyelitis. Pt declined last time and his condition improved, he was sent back to [facility]. Returns for same symptoms and today was not agreeable to transfer to [facility]. Pt is also refusing to be turned per primary RN. New bed is being ordered per primary RN. ID is following and we appreciate their recommendations. Continue IV Vanco and Meropenem (4) Fever Current Visit: No Status: Resolved Assessment and Plan: Resolved. Plan as above. (5) Tachycardia Current Visit: Yes Status: Acute Assessment and Plan: Tachycardia with a heart rate in the 120s upon presentation ,rate has slowed to 90s today. Monitor remains NSR. Secondary to fever and sepsis. Plan as above. Continue telemetry. (6) Osteomyelitis Current Visit: Yes Status: Acute Assessment and Plan: Currently on long-term Ertapenem at facility for treatment of osteomyelitis involving the sacrum and coccyx. Meropenem and Vancomycin have been added Pt septic on arrival, has responded well to IVF and IV antibiotics. Pt was to be transferred to [facility] for surgical debridement of bone last admission , pt declined and his condition improved. He was sent back to [facility] and continue IV antibiotics, however, he has returned with fever, leukocytosis. Again, he has declined transfer. ID following, We appreciate their recommendations. Continue IV antibiotics Monitor labs and vitals DVT Prophylaxis: As above - Time Spent with Patient Total time spent is greater than 50% in coordination of care (as documented) at patient's floor/unit and/or counseling patient: less than 15 minutes Plan of Care Discussed with: patient Internal Medicine: Result - Labs CBC & Chem 7: 08/03/18 08:08 08/03/18 08:08 Labs: Short CBC 08/03/18 Range/Units 08:08 WBC 10.9 (4.3-11.1) K/mcL Hgb 8.7 L (12.9-16.9) g/dL Hct 27.5 L (37.5-50.1) % Plt Count 236 (140-400) K/mcL Neutrophils # 7.0 (1.6-8.9) K/mcL BMP 08/03/18 08:08 Sodium 133 L Potassium 3.8 Chloride 101 Carbon Dioxide 29 BUN 18 Creatinine 0.49 L Glucose 108 H Calcium 8.9 Liver Function 08/03/18 Range/Units 08:08 Total Bilirubin 0.3 (0.3-1.0) mg/dL AST 19 (13-39) Units/L ALT 23 (7-52) Units/L Alkaline Phosphatase 68 (34-104) Units/L Albumin 2.5 L (3.5-5.7) g/dL - ABG Interpretation ABG results: PT/INR, D-dimer PT 12.4 Seconds (9.4-12.1) H 08/02/18 22:55 Consult Discharge Plan - Plan Referrals: Jayson Gutierrez, PAC [Primary Care Provider] - (2) Sepsis Qualifiers: Sepsis type: sepsis due to unspecified organism Qualified Code(s): A41.9 - Sepsis, unspecified organism (4) Fever Qualifiers: Encounter type: initial encounter (6) Osteomyelitis Qualifiers: Osteomyelitis type: other Osteomyelitis location: multiple sites Qualified Code(s): M86.8X0 - Other osteomyelitis, multiple sites
[2018-08-03 14:37] LABS: Hematocrit 27.5 % (37.5-50.1); Hemoglobin 8.8 g/dL (12.9-16.9)
[2018-08-03 22:02] LABS: Hematocrit 26.6 % (37.5-50.1); Hemoglobin 8.4 g/dL (12.9-16.9)
[2018-08-04] MEDS: Meropenem 1,000 MG in 0.9 % Sodium Chloride Mini Bag 100 ML IVPB SCH ×3 (00:25→16:15)
[2018-08-04] MEDS: *HR* Heparin 5,000 UNIT/ML VIAL SQ SCH ×3 (00:26→16:15)
[2018-08-04] MEDS: traMADol 50 MG TABLET PO PRN (01:21)
[2018-08-04 06:47] LABS: Basophils % 0.3 %; Eosinophils # 0.7 K/mcL (0.0-0.6); Eosinophils % 9.8 %; Hematocrit 25.7 % (37.5-50.1); Hemoglobin 8.2 g/dL (12.9-16.9); Immature Granulocytes % 0.1 % (0-4); Lymphocytes # 1.8 K/mcL (0.6-4.6); Mean Corpuscular HGB Conc 31.9 g/dL (31.6-35.5); Mean Corpuscular Hemoglobin 27.3 pg (28.0-33.3); Mean Corpuscular Volume 85.7 fL (83.0-100.0); Mean Platelet Volume 8.8 fL (9.4-12.4); Monocytes # 0.5 K/mcL (0.0-1.3); Monocytes % 7.1 %; Neutrophils # 4.2 K/mcL (1.6-8.9); Platelet Count 262 K/mcL (140-400); Red Cell Distribution Width 15.2 % (11.5-14.5); Segmented Neutrophils % 57.7 %
[2018-08-04 07:19] LABS: BUN/Creatinine Ratio 22 (6-26); Blood Urea Nitrogen 10 mg/dL (6-20); Carbon Dioxide 26 mEq/L (23-29); Chloride 104 mEq/L (98-107); Glucose 94 mg/dL (70-105); Osmolality,Calculated 281 (280-300); Sodium 136 mEq/L (136-145); eGFR For Non-African Americans > 60 (> 60)
[2018-08-04] MEDS: Gabapentin 400 MG CAPSULE PO SCH ×3 (07:50→21:44)
[2018-08-04] MEDS ORDERED: Gabapentin 400 MG CAPSULE PO SCH (09:00)
[2018-08-04 11:53] LABS: Adenovirus Not Detected (Not Detect); Bordetella Pertussis Not Detected (Not Detect); Chlamydophila pneumoniae Not Detected (Not Detect); Coronavirus 229E Not Detected (Not Detect); Coronavirus HKU1 Not Detected (Not Detect); Coronavirus NL63 Not Detected (Not Detect); Coronavirus OC43 Not Detected (Not Detect); Human Metapneumovirus Not Detected (Not Detect); Human Rhinovirus/Enterovirus Not Detected (Not Detect); Influenza A Subtype 2009 H1 Not Detected (Not Detect); Influenza A Untypeable Not Detected (Not Detect); Influenza B Not Detected (Not Detect); Mycoplasma pneumoniae Not Detected (Not Detect); Parainfluenza Virus 1 Not Detected (Not Detect); Parainfluenza Virus 2 Not Detected (Not Detect); Parainfluenza Virus 3 Not Detected (Not Detect); Parainfluenza Virus 4 Not Detected (Not Detect); Respiratory Syncytial Virus Not Detected (Not Detect)
[2018-08-04] MEDS ORDERED: VALPROIC ACID PO SCH (13:00)
[2018-08-04] MEDS ORDERED: Valproic Acid Oral Soln 250 MG/5 ML UDC PO SCH (13:45)
--- NOTE | 2018-08-04 14:47 | Infectious Disease Progress No ---
Date of Encounter: 08/04/18 Time of Encounter: 10:30 - Assessment and Plan (1) Sepsis Current Visit: Yes Status: Acute The patient had two SIRS Criteria on admission plus fever at the F. Etiology unclear. The patient does have known osteomyelitis of the sacrum/coccyx , but has been on appropriate antibiotic therapy. Additionally, his CXR shows possible PNA. He also has a large pressure ulcer to the right heel, although clinically it does not appear infected. He also has a RUE PICC line, but it does not appear infected on exam. Improved. WBC has normalized. Tachycardia improved. He has been afebrile since admission. Blood culture drawn 08/02/18 x 1 set is no growth to date. Repeat blood cultures x 2 sets drawn 08/03/18 are pending. Qualifiers: Sepsis type: sepsis due to unspecified organism Qualified Code(s): A41.9 - Sepsis, unspecified organism (2) Osteomyelitis Current Visit: Yes Status: Acute CT of the abdomen and pelvis completed during his most recent hospitalization reveals large sacral decubitus ulcer with underlying osseous irregularity involving the sacrum and coccyx. Possibly the left ischium and left greater trochanter as well suggesting osteomyelitis. Most recent culture from 07/01/18 grew Proteus mirabilis S: Ertapenem, Zosyn, tobramycin and Morganella Morgagni S: Carbapenems, aminoglycosides, Bactrim Dr. Durham did speak with radiology to discuss the CT findings and this appears to be acute on chronic osteomyelitis. Review of [facility] records reveals that the patient was discharged from [facility] on Ertapenem. The patient declines exammination of the wounds again today, but documentation reveals grossly purulent drainage and foul odor from the wounds. He again declines transfer to [facility] despite our recommendations. Repeat ESR and CRP.--> 89, 91 Continue Meropenem 1 gram IV Q8H. Continue Vancomycin IV. Pharmacy to dose. Goal trough ~15. Duration of treatment likely 6-8 weeks. Again recommend transfer to [facility] for wound care and plastic surgery evaluation. Continue contact isolation per protocol. Monitor renal function and for drug toxicity and dose-adjust antibiotics. Qualifiers: Osteomyelitis type: other Osteomyelitis location: multiple sites Qualified Code(s): M86.8X0 - Other osteomyelitis, multiple sites (3) Pneumonia Current Visit: No Status: Suspected Causative organism: Unclear. CXR shows left basilar atelectasis vs. PNA. Get RIP.--> negative. Check S. pneumo and Legionella UATs.--> negative. Send sputum for culture if the patient is able to provide an adequate specimen. Get CT chest with contrast to evaluate. Continue Vanc and Talib as above. Duration of treatment depends on the clinical picture. Monitor renal function and for drug toxicity and dose-adjust antibiotics. Qualifiers: Pneumonia type: due to unspecified organism Laterality: right Lung location: unspecified part of lung Qualified Code(s): J18.9 - Pneumonia, unspecified organism (4) UTI (urinary tract infection) Current Visit: No Status: Ruled-out Urinalysis positive for pyuria, but the patient is asymptomatic, although I'm not sure if the patient has full sensation of his bladder given his paresis to the BLE. Urine culture negative. Qualifiers: Urinary tract infection type: acute cystitis Hematuria presence: with hematuria Qualified Code(s): N30.01 - Acute cystitis with hematuria (5) Pressure ulcer of both feet, unstageable Current Visit: No Status: Acute Location: Right heel and left lateral ankle. Likely secondary to ongoing pressure. Clinically, does not appear infected, but there is a large amount of eschar noted. Recommend podiatry to evaluate. Wound care per the Podiatry team. (6) Pressure ulcer of sacral region, stage 4 Current Visit: Yes Status: Chronic Follows with [facility] wound care. Aggressive offloading and wound care required. Recommend transfer to [facility] for plastic surgery evaluation. (7) Weakness of both lower extremities Current Visit: No Status: Chronic (8) COPD (chronic obstructive pulmonary disease) Current Visit: No Status: Chronic Qualifiers: COPD type: emphysema Emphysema type: unspecified Qualified Code(s): J43.9 - Emphysema, unspecified (9) Hepatitis C Current Visit: No Status: Chronic Qualifiers: Viral hepatitis chronicity: unspecified Hepatic coma status: without hepatic coma Qualified Code(s): B19.20 - Unspecified viral hepatitis C without hepatic coma (10) Tobacco use Current Visit: No Status: Chronic (11) Epidural abscess Current Visit: Yes Status: Resolved Diagnosed in December. Discharged from [facility] on chronic oral doxycycline for chronic suppressive therapy due to hardware in his back. Continue Vancomycin as above for now, but re-start doxycycline if/when Vanc is stopped. Per [facility], continue through 09/22/18. - Subjective Interval history: Patient seen and examined. No acute events noted overnight. Patient states overall he feels the same. Denies any fevers, chills, rigors. Denies chest pain, shortness of breath, or cough. Denies nausea, vomiting, diarrhea, or constipation. Denies abdominal pain and states his Willis catheter remains patent. Reports good output from his colostomy. Denies appetite changes. Reports some mild back pain. Denies oral thrush or new skin lesions. Infect Dis PN-Objective Data - Labs CBC & Chem 7: 08/04/18 05:48 08/04/18 05:48 Labs: Laboratory Results - last 24 hr 08/03/18 08/03/18 08/03/18 15:03 15:03 20:00 WBC RBC Hgb 8.4 L Hct 26.6 L MCV MCH MCHC RDW Plt Count MPV Immature Gran % Seg Neutrophils % Lymphocytes % Monocytes % Eosinophils % Basophils % Neutrophils # Lymphocytes # Monocytes # Eosinophils # Basophils # ESR 89 H Sodium Potassium Chloride Carbon Dioxide BUN Creatinine Est GFR ( Amer) Est GFR (Non-Af Amer) BUN/Creatinine Ratio Glucose Calculated Osmolality Calcium C-Reactive Protein 91 H Vancomycin Trough Chlamy pneumoniae PCR Adenovirus (PCR) B. pertussis DNA (PCR) B.parapertussis DNA PCR Coronavirus OC43 (PCR) Coronavirus HKU1 (PCR) Coronavirus 229E (PCR) Coronavirus NL63 (PCR) Human Metapneumovir PCR Influenza A (H1) PCR Influ A (H1N1/09) PCR Influenza A (H3) PCR Influenza A Untype (PCR) Influenza Type B (PCR) M.pneumoniae DNA (PCR) Parainfluenza 1 (PCR) Parainfluenza 2 (PCR) Parainfluenza 3 (PCR) Parainfluenza 4 (PCR) RSV (PCR) Entero/Rhino (PCR) 08/04/18 08/04/18 08/04/18 05:48 05:48 05:57 WBC 7.2 RBC 3.00 L Hgb 8.2 L Hct 25.7 L MCV 85.7 MCH 27.3 L MCHC 31.9 RDW 15.2 H Plt Count 262 MPV 8.8 L Immature Gran % 0.1 Seg Neutrophils % 57.7 Lymphocytes % 25.0 Monocytes % 7.1 Eosinophils % 9.8 Basophils % 0.3 Neutrophils # 4.2 Lymphocytes # 1.8 Monocytes # 0.5 Eosinophils # 0.7 H Basophils # 0.0 ESR Sodium 136 Potassium 4.0 Chloride 104 Carbon Dioxide 26 BUN 10 Creatinine 0.45 L Est GFR ( Amer) > 60 Est GFR (Non-Af Amer) > 60 BUN/Creatinine Ratio 22 Glucose 94 Calculated Osmolality 281 Calcium 9.0 C-Reactive Protein Vancomycin Trough Chlamy pneumoniae PCR Not Detected Adenovirus (PCR) Not Detected B. pertussis DNA (PCR) Not Detected B.parapertussis DNA PCR Not Detected Coronavirus OC43 (PCR) Not Detected Coronavirus HKU1 (PCR) Not Detected Coronavirus 229E (PCR) Not Detected Coronavirus NL63 (PCR) Not Detected Human Metapneumovir PCR Not Detected Influenza A (H1) PCR Not Detected Influ A (H1N1) PCR Not Detected Influenza A (H3) PCR Not Detected Influenza A Untype (PCR) Not Detected Influenza Type B (PCR) Not Detected M.pneumoniae DNA (PCR) Not Detected Parainfluenza 1 (PCR) Not Detected Parainfluenza 2 (PCR) Not Detected Parainfluenza 3 (PCR) Not Detected Parainfluenza 4 (PCR) Not Detected RSV (PCR) Not Detected Entero/Rhino (PCR) Not Detected 08/04/18 11:14 WBC RBC Hgb Hct MCV MCH MCHC RDW Plt Count MPV Immature Gran % Seg Neutrophils % Lymphocytes % Monocytes % Eosinophils % Basophils % Neutrophils # Lymphocytes # Monocytes # Eosinophils # Basophils # ESR Sodium Potassium Chloride Carbon Dioxide BUN Creatinine Est GFR ( Amer) Est GFR (Non-Af Amer) BUN/Creatinine Ratio Glucose Calculated Osmolality Calcium C-Reactive Protein Vancomycin Trough 20 H Chlamy pneumoniae PCR Adenovirus (PCR) B. pertussis DNA (PCR) B.parapertussis DNA PCR Coronavirus OC43 (PCR) Coronavirus HKU1 (PCR) Coronavirus 229E (PCR) Coronavirus NL63 (PCR) Human Metapneumovir PCR Influenza A (H1) PCR Influ A (H1N1) PCR Influenza A (H3) PCR Influenza A Untype (PCR) Influenza Type B (PCR) M.pneumoniae DNA (PCR) Parainfluenza 1 (PCR) Parainfluenza 2 (PCR) Parainfluenza 3 (PCR) Parainfluenza 4 (PCR) RSV (PCR) Entero/Rhino (PCR) Cultures: Cultures 08/03/18 15:05 Blood Culture - Preliminary Peripheral Venipuncture Culture is incubating and being continuously monitored for growth. Final report to follow. 08/03/18 15:00 Blood Culture - Preliminary Peripheral Venipuncture Culture is incubating and being continuously monitored for growth. Final report to follow. 08/03/18 13:59 Legionella Antigen - Final Urine,[place] Streptococcus pneumoniae Antigen (M - Final Serology 08/04/18 Range/Units 05:57 Chlamy pneumoniae PCR Not Detected (Not Detect) Adenovirus (PCR) Not Detected (Not Detect) B. pertussis DNA (PCR) Not Detected (Not Detect) B.parapertussis DNA PCR Not Detected (Not Detect) Coronavirus OC43 (PCR) Not Detected (Not Detect) Coronavirus HKU1 (PCR) Not Detected (Not Detect) Coronavirus 229E (PCR) Not Detected (Not Detect) Coronavirus NL63 (PCR) Not Detected (Not Detect) Human Metapneumovir PCR Not Detected (Not Detect) Influenza A (H1) PCR Not Detected (Not Detect) Influ A (H1N1/09) PCR Not Detected (Not Detect) Influenza A (H3) PCR Not Detected (Not Detect) Influenza A Untype (PCR) Not Detected (Not Detect) Influenza Type B (PCR) Not Detected (Not Detect) M.pneumoniae DNA (PCR) Not Detected (Not Detect) Parainfluenza 1 (PCR) Not Detected (Not Detect) Parainfluenza 2 (PCR) Not Detected (Not Detect) Parainfluenza 3 (PCR) Not Detected (Not Detect) Parainfluenza 4 (PCR) Not Detected (Not Detect) RSV (PCR) Not Detected (Not Detect) Entero/Rhino (PCR) Not Detected (Not Detect) Exam - Constitutional Vitals: Temp Pulse Resp BP Pulse Ox 98.1 F 102 16 99/59 98 08/04/18 11:14 08/04/18 11:14 08/04/18 11:14 08/04/18 11:14 08/04/18 11:14 General appearance: cooperative, no acute distress, thin - Head Head exam: Present: atraumatic, normal inspection, normocephalic - Eye Eye exam: Present: EOMI, normal appearance, PERRL Pupils: Present: normal accommodation - ENT ENT exam: Present: mucous membranes moist - Neck Neck exam: Present: normal inspection - Respiratory Respiratory exam: Present: CTAB. Absent: rales, respiratory distress, rhonchi, wheezes - Cardiovascular Cardiovascular exam: Present: RRR, +S1, +S2 - GI/Abdominal GI/Abdominal exam: Present: normal bowel sounds, soft. Absent: distended, tenderness Additional comments: Willis catheter remains patent draining clear yellow urine. Colostomy noted to the left side of the abdomen with small amount of dark brown formed stool noted in the bag. - Extremities Exam Extremities exam: Absent: joint swelling, normal inspection (Contractures noted to the bilateral lower extremities with severe muscle atrophy noted.), pedal edema, tenderness Additional comments: Bilateral foot dressings are clean, dry, and intact. Heel boots noted to the bilateral lower extremities. - Back Exam Additional comments: Deferred per patient request. - Neurological Exam Neurological exam: Present: alert, oriented X3. Absent: no focal deficits ( Decreased sensation and movement noted to the bilateral lower extremities) - Psychiatric Psychiatric exam: Present: normal affect, normal mood - Skin Skin exam: Present: dry, intact, normal color, warm - Additional findings Additional findings: PICC line noted to the right upper extremity with transparent dressing clean, dry, and intact. Consult Discharge Plan - Plan Referrals: Jayson Gutierrez, PAC [Primary Care Provider] -
[2018-08-04] MEDS ORDERED: Albuterol 2.5 MG/3 ML NEBULIZER IH PRN (16:00)
[2018-08-04] MEDS: Famotidine 20 MG TABLET PO SCH (16:14)
[2018-08-04] MEDS: Baclofen 10 MG TABLET PO SCH ×2 (16:15→21:45)
[2018-08-04] MEDS: Lactulose Oral Soln 20 GM/30 ML UDC PO SCH (16:16)
[2018-08-04] MEDS: OLANZapine 10 MG TAB.RAPDIS PO SCH (16:46)
--- NOTE | 2018-08-04 17:30 | Electrocardiograph Report ---
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
--- NOTE | 2018-08-04 18:35 | Internal Med Progress Note ---
Hospitalist Progress Note - Encounter Date of Encounter: 08/04/18 Time of Encounter: 18:35 - Subjective Interval History: Pt refuses to be transferred. States he would like to follow up out pt in 2 weeks with plastics. Pt also refusing dressing changes. He denies, fever, chills, N/V, diarrhea. Denies CP or SOB. - Exam Vitals: Temp Pulse Resp BP Pulse Ox 98.1 F 94 16 93/59 99 08/04/18 15:29 08/04/18 15:29 08/04/18 15:29 08/04/18 15:29 08/04/18 15:29 Exam: General: Alert and oriented 3. Patient lying in bed in no acute distress Skin: Several large decubitus ulcers. The largest one measuring approximately 10 cm in diameter. No evidence of drainage or surrounding erythema. Foul- smelling. 4 cm ulcer near the left [place]. No evidence of surrounding erythema or purulent drainage 5 cm ulcer involving the right heel with black eschar covering the wound. HEENT:EOM, pupils equal, round and reactive. Cardiovascular:Normal S1 & S2, no rubs, murmurs or gallops. No JVD. Pulse regular. Lungs:Normal breath sounds, no wheezes or crackles. Abdomen:Soft, non-tender, no rigidity. Extremities:No deformity, no edema or tenderness, no joint swelling or clubbing. Neurological:Normal cognition and motor skills. Pulses:Carotid and radial pulses normal +2. Rest of the physical exam is non contributory - Assessment and Plan (1) Osteomyelitis of coccyx Current Visit: No Status: Acute Assessment and Plan: Pt being followed by ID and CT reviewed with raiolopgist and appears to be acute on chronic OM. Most recent culture from 07/01/18 grew Proteus mirabilis S: Ertapenem, Zosyn, tobramycin and Morganella Morgagni S: Carbapenems, aminoglycosides, Bactrim. patient declines exammination of the wounds again today, but documentation reveals grossly purulent drainage and foul odor from the wounds. He again declines transfer to [facility] despite our recommendations. Currently on Vanc, Meropenem with plan to treat for 6-8 weeks. (2) Pressure ulcer of sacral region, stage 4 Current Visit: Yes Status: Chronic Assessment and Plan: Wound care consult (3) Fever Current Visit: Yes Status: Acute Assessment and Plan: Resolved. (4) Tachycardia Current Visit: Yes Status: Acute Assessment and Plan: improving (5) Hepatitis C Current Visit: No Status: Chronic (6) Drug abuse, IV Current Visit: No Status: Chronic (7) Abnormal urinalysis Current Visit: Yes Status: Acute Assessment and Plan: Will send for culture and await results (8) Medical non-compliance Current Visit: Yes Status: Acute Assessment and Plan: Pt refusing dressing changes and refusing to be transferred to [facility] for plastic surgery evaluation. DVT Prophylaxis: Heparin - Summary of Assessment and Plan Summary of Assessment and Plan: Patient is 52 y/o male wiith past medical history significant for spinal stenosis and paraplegic, mood disorder and hepatitis C who was recently discharged 3 days ago for treatment of acute versus chronic sacral osteomyelitis and discharged on IV antibiotics. Patient again presents from the [facility] with a reported fever spike of 104. Patient found to be mildly tachycardic in the 120s. His laboratory findings are again notable for a slight white blood cell count of 13.3 and afebrile. Patients sacral wound cultures last time (07/01/18) grew Proteus mirabilis and Morganella which were both only sensitive to ertapenem. Patient was seen by Infectious disease with recommendations that patient be transferred to [facility] for evaluation and management by plastic surgery for deep debridement of bone due to persistent osteomyelitis. Patient however declined to be transferred to [facility] and wished to be transferred back to custodial facility. Patient currently denies any fever, chills or pain. - Time Spent with Patient Total time spent is greater than 50% in coordination of care (as documented) at patient's floor/unit and/or counseling patient: 25 - 35 minutes Plan of Care Discussed with: patient Internal Medicine: Result - Labs CBC & Chem 7: 08/04/18 05:48 08/04/18 05:48 Labs: Short CBC 08/03/18 08/04/18 Range/Units 20:00 05:48 WBC 7.2 (4.3-11.1) K/mcL Hgb 8.4 L 8.2 L (12.9-16.9) g/dL Hct 26.6 L 25.7 L (37.5-50.1) % Plt Count 262 (140-400) K/mcL Neutrophils # 4.2 (1.6-8.9) K/mcL BMP 08/04/18 05:48 Sodium 136 Potassium 4.0 Chloride 104 Carbon Dioxide 26 BUN 10 Creatinine 0.45 L Glucose 94 Calcium 9.0 - ABG Interpretation ABG results: PT/INR, D-dimer PT 12.4 Seconds (9.4-12.1) H 08/02/18 22:55 - Impressions Impressions Chest CT 08/04/18 17:00 IMPRESSION: No convincing evidence of pneumonia is identified. There is mild airspace disease within the lower lungs bilaterally, seen mainly within a dependent location, which is most likely atelectasis. There is mild bronchial wall thickening which suggests acute and/or chronic bronchitis. There is a background of emphysema. Nodular opacity within the right lung apex measuring approximately 5 mm. Follow-up recommendations below. RECOMMENDATIONS: Fleischner Society guidelines for follow-up and management of incidentally detected pulmonary nodules: Single Solid Nodule: Nodule size less than 6 mm In a low-risk patient, no routine follow-up. In a high-risk patient, optional CT at 12 months. - Low risk patients include individuals with minimal or absent history of smoking and other known risk factors. - High risk patients include individuals with a history or smoking or known risk factors. Radiology 2017 http://pubs.rsna.org/doi/full/10.1148/radiol.6440179889 D/ / Dorian Nazario MD / Dorian Nazario MD Interpreting Provider: Dorian Nazario MD Consult Discharge Plan - Plan Referrals: Jayson Gutierrez, PAC [Primary Care Provider] - (3) Fever Qualifiers: Fever type: malignant hyperthermia due to anesthesia Encounter type: initial encounter Qualified Code(s): T88.3XXA - Malignant hyperthermia due to anesthesia, initial encounter (5) Hepatitis C Qualifiers: Viral hepatitis chronicity: unspecified Hepatic coma status: without hepatic coma Qualified Code(s): B19.20 - Unspecified viral hepatitis C without hepatic coma
--- NOTE | 2018-08-04 19:09 | Podiatry Consult Note ---
Date of Encounter: 08/04/18 Time of Encounter: 07:00 Assessment and Plan (1) Pressure ulcer of right heel, unstageable Current visit: Yes Status: Acute Discussed condition and my findings with the patient. This appears to be a dry stable eschar. Does not appear infected clinically. Did order an x-ray to evaluate the underlying bone this wound is been present for a while. We will perform wound care with Santyl daily on this area. Continue with offloading boot to reduce pressure on heel. (2) Pressure ulcer of left ankle, stage 3 Current visit: Yes Status: Acute Discussed condition with patient and clinically the wound does not appear infected. Did order an x-ray to rule out any underlying infection as the wound is over the fibula bone but does not probe to the bone currently. Will use santyl for woundcare. Continue with offloading boot as this wound is do to pressure. History of Present Illness HPI: 52 year old male who is a paraplegic with a past medical history significant for spinal stenosis, mood disorder and hepatitis C who was recently admitted with a sacral wound and osteomyelitis being treated with IV antibiotics. Patient had a fever and was readmitted from [facility]. He says the wounds on the feet have been present for approximately 2 months. He says the long term takes care of them. He says since january of this year he has been paralyzed and it started with a tumor on his spine. He says he woke up and could not walk. Previously recommended the doctors at [place] had recommended transfer to [facility] for his sacral wound and osteomyelitis and it is reported the patient declined. Patient noted to have a pressure wound bilateral and podiatry was consulted. Past Med Surg Social Fam HX - Past Medical History Medical history: COPD, GERD, hepatitis, other Additional medical history: spinal stenosis, anemia, encephalopathy, GI hemorrhage,MRSA, osteomyelitis, pressure ulcer Psychiatric history: bipolar, schizophrenia - Past Surgical History Surgical History: non-contributory Additional surgical history: back/spine surgery, evacuation of epidural abscess , I&D, C5-T1 laminectomy December 2017 - Social History Smoking Status: Current every day smoker Smokeless Tobacco Status: No Alcohol use: none Drug use: none - Family History Father Living Status: Hx Family Cardiac Disorders: Yes ([place]) Mother Living Status: Hx Family Cancer: Yes Medications and Allergies Aspirin 81 mg PO DAILY tab.chew 12/30/17 [Rx] Albuterol Neb [Proventil Neb] 2.5 mg IH Q6H PRN 07/01/18 [History] Baclofen [Lioresal] 5 mg PO TID 07/01/18 [History] Doxycycline Hyclate [Vibramycin] 100 mg PO BID 07/01/18 [History] Famotidine [Heartburn Prevention] 20 mg PO Q12H 07/01/18 [History] Gabapentin [Neurontin] 400 mg PO TID 07/01/18 [History] Heparin 5,000 unit SQ Q8H 07/01/18 [History] Iron Polysaccharide Complex [Ferrex 150] 150 mg PO DAILY 07/01/18 [History] Nortriptyline [Pamelor] 25 mg PO HS 07/01/18 [History] Tramadol HCl [Ultram] 50 mg PO Q8H PRN 07/01/18 [History] Valproic Acid (As Sodium Salt) [Valproic Acid] 500 mg PO Q8H 07/01/18 [History] Ascorbic Acid [Vitamin C] 500 mg PO BID 07/28/18 [History] Budesonide/Formoterol 80/4.5 [Symbicort 80/4.5] 2 puff IH BID 07/28/18 [History ] Ertapenem [INVanz] 1,000 mg IVPB DAILY 07/28/18 [History] Lactulose [Enulose] 20 gm PO TIDWM 07/28/18 [History] Lidocaine [Aspercreme] 1 each TP DAILY 07/28/18 [History] Melatonin [Melatin] 3 mg PO HS 07/28/18 [History] Multivitamin [Multivitamins] 1 each PO DAILY 07/28/18 [History] OLANZapine [Zyprexa] 10 mg PO QPM 07/28/18 [History] Zinc Sulfate 220 mg PO BID 07/28/18 [History] 0.9 % Sodium Chloride [Monoject Prefill] 1 appl IV BID 08/04/18 [History] Acetaminophen [Tylenol] 650 mg PO Q8H PRN 08/04/18 [History] Patient Taking Own Medication [Patient Taking Own Medication] 30 ml IR Q12H PRN 08/04/18 [History] 3 Allergy/AdvReac Type Severity Reaction Status Date / Time No Known Allergies Allergy Verified 08/02/18 22:22 All Systems Reviewed: The remainder of the systems were reviewed and are negative - Constitutional Constitutional: fever(s), no frequent falls - Cardiovascular Cardiovascular: no chest pain, no dyspnea - Respiratory Respiratory: no cough - Musculoskeletal Musculoskeletal: muscle cramps, muscle weakness, numbness Physical Exam - Constitutional Vitals: Temp Pulse Resp BP Pulse Ox 98.1 F 94 16 93/59 99 08/04/18 15:29 08/04/18 15:29 08/04/18 15:29 08/04/18 15:29 08/04/18 15:29 General appearance: cooperative, no acute distress, thin - Ankle & Foot Exam: in no acute distress Vasc: feet are warm to touch. minimal edema. Derm: posterior heel wound on the right 1hpr2lo has an eschar. no fluctuance. appears dry, no surrounding erythema. left lateral ankle 1.3cmx1.3cm wound with fibrogranular base. no fluctuance of either wound. no erythema of the soft tissue. no purulence expressed. Musc: unable to assess due to condition. patient is contracted on b/l extremities. muscle atrophy. paraplegic. Neuro: absent protective sensation Results - Labs Result Diagrams: 08/04/18 05:48 08/04/18 05:48 Labs: Abnormal lab results RBC 3.00 M/mcL (4.19-5.50) L 08/04/18 05:48 Hgb 8.2 g/dL (12.9-16.9) L 08/04/18 05:48 Hct 25.7 % (37.5-50.1) L 08/04/18 05:48 MCH 27.3 pg (28.0-33.3) L 08/04/18 05:48 RDW 15.2 % (11.5-14.5) H 08/04/18 05:48 MPV 8.8 fL (9.4-12.4) L 08/04/18 05:48 Eosinophils # 0.7 K/mcL (0.0-0.6) H 08/04/18 05:48 ESR 89 mm/hr (0-10) H 08/03/18 15:03 PT 12.4 Seconds (9.4-12.1) H 08/02/18 22:55 Creatinine 0.45 mg/dL (0.70-1.30) L 08/04/18 05:48 C-Reactive Protein 91 mg/L (Less than 10) H 08/03/18 15:03 Serum Total Protein 5.9 g/dL (6.4-8.9) L 08/03/18 08:08 Albumin 2.5 g/dL (3.5-5.7) L 08/03/18 08:08 Albumin/Globulin Ratio 0.7 (1.1-2.2) L 08/03/18 08:08 Ur Specific [place] >= 1.030 (1.010-1.025) H 08/03/18 00:41 Urine Protein 100 mg/dL (Neg-Trace) H 08/03/18 00:41 Urine Blood Small (Negative) H 08/03/18 00:41 Ur Leukocyte Esterase Small (Negative) H 08/03/18 00:41 Urine Microscopic RBC 3-5 per hpf (0-3) H 08/03/18 00:41 Urine Microscopic WBC 5-15 per hpf (0-3) H 08/03/18 00:41 Amorphous Sediment Moderate (Few) H 08/02/18 22:57 Ur Culture Indicated? YES (NO) A 08/03/18 00:41 Vancomycin Trough 20 mcg/mL (5-10) H 08/04/18 11:14 H & H 08/03/18 08/04/18 Range/Units 20:00 05:48 Hgb 8.4 L 8.2 L (12.9-16.9) g/dL Hct 26.6 L 25.7 L (37.5-50.1) % All other labs normal. Consult Discharge Plan - Plan Referrals: Jayson Gutierrez, PAC [Primary Care Provider] -
[2018-08-04] MEDS: Budesonide/Formoterol 80/4.5 MDI IH SCH (20:12)
[2018-08-04] MEDS: Valproic Acid 250 MG CAPSULE PO SCH (21:44)
[2018-08-04] MEDS: Melatonin 3 MG TABLET PO SCH (21:45)
[2018-08-05] MEDS: Meropenem 1,000 MG in 0.9 % Sodium Chloride Mini Bag 100 ML IVPB SCH ×3 (00:18→18:00)
[2018-08-05] MEDS: *HR* Heparin 5,000 UNIT/ML VIAL SQ SCH ×3 (00:18→17:55)
[2018-08-05] MEDS: traMADol 50 MG TABLET PO PRN (00:20)
[2018-08-05] MEDS: Valproic Acid 250 MG CAPSULE PO SCH ×3 (06:29→17:55)
[2018-08-05] MEDS: Famotidine 20 MG TABLET PO SCH ×2 (06:29→17:56)
[2018-08-05] MEDS: Iron Polysaccharide Complex 150 MG CAPSULE PO SCH (09:00)
[2018-08-05] MEDS: Lactulose Oral Soln 20 GM/30 ML UDC PO SCH (09:00)
[2018-08-05] MEDS: Aspirin 81 MG TAB.CHEW PO SCH (09:01)
[2018-08-05] MEDS: Baclofen 10 MG TABLET PO SCH ×3 (09:01→21:47)
[2018-08-05] MEDS: Gabapentin 400 MG CAPSULE PO SCH ×3 (09:01→21:47)
[2018-08-05] MEDS: Budesonide/Formoterol 80/4.5 MDI IH SCH ×2 (10:22→20:04)
[2018-08-05] MEDS ORDERED: Lactulose Oral Soln 20 GM/30 ML UDC PO PRN (10:54)
--- NOTE | 2018-08-05 13:59 | Infectious Disease Progress No ---
Date of Encounter: 08/05/18 Time of Encounter: 10:20 - Assessment and Plan (1) Sepsis Current Visit: Yes Status: Acute The patient had two SIRS Criteria on admission plus fever at the ECF. Etiology unclear. The patient does have known osteomyelitis of the sacrum/coccyx , but has been on appropriate antibiotic therapy. Additionally, his CXR shows possible PNA. He also has a large pressure ulcer to the right heel, although clinically it does not appear infected. He also has a RUE PICC line, but it does not appear infected on exam. Improved. WBC has normalized. Tachycardia improved. He has been afebrile since admission. Blood culture drawn 08/02/18 x 1 set is no growth to date. Repeat blood cultures x 2 sets drawn 08/03/18 are NGTD. Qualifiers: Sepsis type: sepsis due to unspecified organism Qualified Code(s): A41.9 - Sepsis, unspecified organism (2) Osteomyelitis Current Visit: Yes Status: Acute CT of the abdomen and pelvis completed during his most recent hospitalization reveals large sacral decubitus ulcer with underlying osseous irregularity involving the sacrum and coccyx. Possibly the left ischium and left greater trochanter as well suggesting osteomyelitis. Most recent culture from 07/01/18 grew Proteus mirabilis S: Ertapenem, Zosyn, tobramycin and Morganella Morgagni S: Carbapenems, aminoglycosides, Bactrim Dr. Durham did speak with radiology to discuss the CT findings and this appears to be acute on chronic osteomyelitis. Review of [facility] records reveals that the patient was discharged from [facility] on Ertapenem. The patient declines transfer to [facility] despite our recommendations, but states he is willing to see them as an outpatient. Repeat ESR and CRP.--> 89, 91 Discontinue Meropenem. Start Ertapenem 1 gram IV daily. Continue Vancomycin IV. Pharmacy to dose. Goal trough ~15. Duration of treatment likely 6-8 weeks. Again recommend transfer to [facility] for wound care and plastic surgery evaluation. Continue contact isolation per protocol. Monitor renal function and for drug toxicity and dose-adjust antibiotics. Qualifiers: Osteomyelitis type: other Osteomyelitis location: multiple sites Qualified Code(s): M86.8X0 - Other osteomyelitis, multiple sites (3) Pneumonia Current Visit: No Status: Ruled-out Ruled out. CXR shows left basilar atelectasis vs. PNA. Get RIP.--> negative. Check S. pneumo and Legionella UATs.--> negative. Send sputum for culture if the patient is able to provide an adequate specimen. CT chest negative for PNA. Qualifiers: Pneumonia type: due to unspecified organism Laterality: right Lung location: unspecified part of lung Qualified Code(s): J18.9 - Pneumonia, unspecified organism (4) UTI (urinary tract infection) Current Visit: No Status: Ruled-out Urinalysis positive for pyuria, but the patient is asymptomatic, although I'm not sure if the patient has full sensation of his bladder given his paresis to the BLE. Urine culture negative. Qualifiers: Urinary tract infection type: acute cystitis Hematuria presence: with hematuria Qualified Code(s): N30.01 - Acute cystitis with hematuria (5) Pressure ulcer of both feet, unstageable Current Visit: No Status: Acute Location: Right heel and left lateral ankle. Likely secondary to ongoing pressure. Clinically, does not appear infected, but there is a large amount of eschar noted. Podiatry consulted. Appreciate recommendations. Wound care per the Podiatry team. X-rays of the bilateral ankles negative for OM. (6) Pressure ulcer of sacral region, stage 4 Current Visit: Yes Status: Chronic Follows with [facility] wound care. Aggressive offloading and wound care required. Recommend transfer to [facility] for plastic surgery evaluation. (7) Weakness of both lower extremities Current Visit: No Status: Chronic (8) COPD (chronic obstructive pulmonary disease) Current Visit: No Status: Chronic Qualifiers: COPD type: emphysema Emphysema type: unspecified Qualified Code(s): J43.9 - Emphysema, unspecified (9) Hepatitis C Current Visit: No Status: Chronic Qualifiers: Viral hepatitis chronicity: unspecified Hepatic coma status: without hepatic coma Qualified Code(s): B19.20 - Unspecified viral hepatitis C without hepatic coma (10) Tobacco use Current Visit: No Status: Chronic (11) Epidural abscess Current Visit: Yes Status: Resolved Diagnosed in December. Discharged from [facility] on chronic oral doxycycline for chronic suppressive therapy due to hardware in his back. Continue Vancomycin as above for now, but re-start doxycycline if/when Vanc is stopped. Per [facility], continue through 09/22/18. - Subjective Interval history: Patient seen and examined. No acute events noted overnight. Patient states overall he feels the same. Denies any fevers, chills, rigors. Denies chest pain, shortness of breath, or cough. Denies nausea, vomiting, diarrhea, or constipation. Denies abdominal pain and states his Willis catheter remains patent. Reports good output from his colostomy. Denies appetite changes. Reports some mild back pain. Denies oral thrush or new skin lesions. Infect Dis PN-Objective Data - Labs CBC & Chem 7: 08/04/18 05:48 08/04/18 05:48 Cultures: Cultures 08/03/18 15:05 Blood Culture - Preliminary Peripheral Venipuncture Culture is incubating and being continuously monitored for growth. Final report to follow. 08/03/18 15:00 Blood Culture - Preliminary Peripheral Venipuncture Culture is incubating and being continuously monitored for growth. Final report to follow. 08/03/18 13:59 Legionella Antigen - Final Urine,[place] Streptococcus pneumoniae Antigen (M - Final Serology 08/04/18 Range/Units 05:57 Chlamy pneumoniae PCR Not Detected (Not Detect) Adenovirus (PCR) Not Detected (Not Detect) B. pertussis DNA (PCR) Not Detected (Not Detect) B.parapertussis DNA PCR Not Detected (Not Detect) Coronavirus OC43 (PCR) Not Detected (Not Detect) Coronavirus HKU1 (PCR) Not Detected (Not Detect) Coronavirus 229E (PCR) Not Detected (Not Detect) Coronavirus NL63 (PCR) Not Detected (Not Detect) Human Metapneumovir PCR Not Detected (Not Detect) Influenza A (H1) PCR Not Detected (Not Detect) Influ A (H1N1/09) PCR Not Detected (Not Detect) Influenza A (H3) PCR Not Detected (Not Detect) Influenza A Untype (PCR) Not Detected (Not Detect) Influenza Type B (PCR) Not Detected (Not Detect) M.pneumoniae DNA (PCR) Not Detected (Not Detect) Parainfluenza 1 (PCR) Not Detected (Not Detect) Parainfluenza 2 (PCR) Not Detected (Not Detect) Parainfluenza 3 (PCR) Not Detected (Not Detect) Parainfluenza 4 (PCR) Not Detected (Not Detect) RSV (PCR) Not Detected (Not Detect) Entero/Rhino (PCR) Not Detected (Not Detect) - Impressions Impressions Chest CT 08/04/18 17:00 IMPRESSION: No convincing evidence of pneumonia is identified. There is mild airspace disease within the lower lungs bilaterally, seen mainly within a dependent location, which is most likely atelectasis. There is mild bronchial wall thickening which suggests acute and/or chronic bronchitis. There is a background of emphysema. Nodular opacity within the right lung apex measuring approximately 5 mm. Follow-up recommendations below. RECOMMENDATIONS: Fleischner Society guidelines for follow-up and management of incidentally detected pulmonary nodules: Single Solid Nodule: Nodule size less than 6 mm In a low-risk patient, no routine follow-up. In a high-risk patient, optional CT at 12 months. - Low risk patients include individuals with minimal or absent history of smoking and other known risk factors. - High risk patients include individuals with a history or smoking or known risk factors. Radiology 2017 http://pubs.rsna.org/doi/full/10.1148/radiol.8310446073 D/ / Dorian Nazario MD / Dorian Nazario MD Interpreting Provider: Dorian Nazario MD Ankle X-Ray 08/04/18 19:58 IMPRESSION: No convincing radiographic evidence of osteomyelitis. D/ / Dorian Nazario MD / Dorian Nazario MD Interpreting Provider: Dorian Nazario MD Ankle X-Ray 08/04/18 19:58 IMPRESSION: Ulceration of the heel. No definite radiographic evidence of osteomyelitis. D/ / Dorian Nazario MD / Dorian Nazario MD Interpreting Provider: Dorian Nazario MD Exam - Constitutional Vitals: Temp Pulse Resp BP Pulse Ox 98.0 F 89 18 98/57 98 08/05/18 11:26 08/05/18 11:26 08/05/18 11:26 08/05/18 11:26 08/05/18 11:26 General appearance: cooperative, no acute distress, thin - Head Head exam: Present: atraumatic, normal inspection, normocephalic - Eye Eye exam: Present: EOMI, normal appearance, PERRL Pupils: Present: normal accommodation - ENT ENT exam: Present: mucous membranes moist - Neck Neck exam: Present: normal inspection - Respiratory Respiratory exam: Present: CTAB. Absent: rales, respiratory distress, rhonchi, wheezes - Cardiovascular Cardiovascular exam: Present: RRR, +S1, +S2 - GI/Abdominal GI/Abdominal exam: Present: normal bowel sounds, soft. Absent: distended, tenderness Additional comments: Colostomy noted to the left abdomen with small amount of soft brown stool noted in the collection bag. Willis catheter noted to be draining clear yellow urine. - Extremities Exam Extremities exam: Absent: joint swelling, normal inspection (Contractures and muscle atrophy noted to the BLE.), pedal edema, tenderness Additional comments: Bilateral foot dressings C/D/I. - Back Exam Additional comments: Dressing to the sacrum/coccyx and buttocks with moderate amount of dark green drainage. No surrounding erythema or tenderness noted. - Neurological Exam Neurological exam: Present: alert, oriented X3. Absent: no focal deficits ( Diminished movement and sensation noted to the BLE.) - Psychiatric Psychiatric exam: Present: normal affect, normal mood - Skin Skin exam: Present: dry, intact, normal color, warm Consult Discharge Plan - Plan Referrals: Jayson Gutierrez, PAC [Primary Care Provider] -
[2018-08-05] MEDS: OLANZapine 10 MG TAB.RAPDIS PO SCH (17:55)
--- NOTE | 2018-08-05 18:01 | Discharge Summary ---
- NOTES TO OUTPATIENT PROVIDER Notes to Outpatient Provider: PCP in 5 to 7 days Orders not resulted at time of discharge: Pending orders 08/03/18 13:59 Culture,Sputum with Gram Stain [RM] Routine 08/03/18 15:05 Culture,Blood [BC] Stat 08/05/18 04:00 Basic Metabolic Panel AM 0400 Complete Blood Count [HEME] AM 0400 08/05/18 10:13 C diff [C.difficile Toxin PCR (>=2yo)] [MOLMIC] Stat 08/05/18 16:05 RACH [EV ankle brachial index BI] Routine 08/06/18 04:00 Basic Metabolic Panel AM 0400 Complete Blood Count [HEME] AM 0400 08/06/18 06:00 Vancomycin,Trough Timed Vancomycin for 6 to 8 weeks then restart Doxycycline when Vancomycin is stopped and continue till 10/02/2018 per [facility] recommendation. Date of Encounter: 08/07/18 Time of Encounter: 17:58 - Discharge Diagnosis (1) Osteomyelitis of coccyx Priority: Primary Status: Acute Assessment and Plan: Pt being followed by ID and CT reviewed with radiologist and appears to be acute on chronic OM. Most recent culture from 07/01/18 grew Proteus mirabilis S: Ertapenem, Zosyn, tobramycin and Morganella Morgagni S: Carbapenems, aminoglycosides, Bactrim. Patient declines examination of the wounds again today, but documentation reveals grossly purulent drainage and foul odor from the wounds. He again declines transfer to [facility] despite our recommendations. Given history of epidural abscess, ID checked CT cervical, thoracic, and lumbar spines, and they where all negative for acute abnormality. Vancomycin has been discontinued. Currently Meropenem with plan to treat for 6 weeks. Also will be on Doxycycline chronically. Thoracic spine CT/CT thoracic spine w con IMPRESSION: 1. New C7-T1 destructive endplate changes with surrounding vertebral body sclerosis consistent with chronic osteomyelitis. If there is clinical concern for acute osteomyelitis, MRI would be recommended for further evaluation. 2. No evidence of epidural abscess in the thoracic spine, however CT is insensitive to abnormalities within the spinal canal. Cervical spine CT/CT cervical spine w con IMPRESSION: Postsurgical changes compatible with posterior fusion at C2-3 and at C6-7. Laminectomy at C4-5, new since previous exam. Suspected old discitis/osteomyelitis at C7-T1. No gross evidence for abscess. MRI, however, is a better modality for evaluation of the contents of the spinal canal and for evaluation of epidural abscess. Lumbar spine CT/CT lumbar spine w con IMPRESSION: 1. No acute abnormality of the lumbar spine. 2. Partially imaged soft tissue swelling over the left sacrum similar to prior study and consistent with cellulitis. No underlying erosive osseous change to suggest osteomyelitis, although the sacrum and coccyx are incompletely imaged. 3. Mild spinal canal stenosis at L2-3 and L3-4 secondary to disc bulges. D/ / Aldair Ceballos / Aldair Ceballos (2) Pressure ulcer of sacral region, stage 4 Priority: Primary Status: Chronic Assessment and Plan: Wound care consult (3) Fever Priority: Primary Status: Acute Assessment and Plan: Resolved. Qualifiers: Fever type: malignant hyperthermia due to anesthesia Encounter type: initial encounter Qualified Code(s): T88.3XXA - Malignant hyperthermia due to anesthesia, initial encounter (4) Tachycardia Priority: Primary Status: Acute Assessment and Plan: Improving (5) Hepatitis C Priority: Secondary Status: Chronic Qualifiers: Viral hepatitis chronicity: unspecified Hepatic coma status: without hepatic coma Qualified Code(s): B19.20 - Unspecified viral hepatitis C without hepatic coma (6) Drug abuse, IV Priority: Secondary Status: Chronic (7) Abnormal urinalysis Priority: Secondary Status: Acute Assessment and Plan: Will send for culture and await results (8) Medical non-compliance Priority: Primary Status: Acute Assessment and Plan: Pt refusing dressing changes and refusing to be transferred to [facility] for plastic surgery evaluation. Hospital course: Mr. Carrasco is a 52 year old male wiith past medical history significant for spinal stenosis and paraplegic, mood disorder and hepatitis C who was recently discharged 3 days ago for treatment of acute versus chronic sacral osteomyelitis and discharged on IV antibiotics. Patient again presents from the [facility] with a reported fever spike of 104. Patient found to be mildly tachycardic in the 120s. His laboratory findings are again notable for a slight white blood cell count of 13.3 and afebrile. Patients sacral wound cultures last time (07/01/18) grew Proteus mirabilis and Morganella which were both only sensitive to ertapenem. Patient was seen by Infectious disease with recommendations that patient be transferred to [facility] for evaluation and management by plastic surgery for deep debridement of bone due to persistent osteomyelitis. Patient however declined to be transferred to [facility] and [facility]. Patient currently denies any fever, chills or pain. Discharge discussed with: patient - Time Spent with Patient Total time spent providing and/or coordinating discharge services: Greater than 30 minutes - Discharge Medications Home Medications: Aspirin 81 mg PO DAILY tab.chew 12/30/17 [Rx] Albuterol Neb [Proventil Neb] 2.5 mg IH Q6H PRN 07/01/18 [History] Baclofen [Lioresal] 5 mg PO TID 07/01/18 [History] Doxycycline Hyclate [Vibramycin] 100 mg PO BID 07/01/18 [History] Famotidine [Heartburn Prevention] 20 mg PO Q12H 07/01/18 [History] Gabapentin [Neurontin] 400 mg PO TID 07/01/18 [History] Heparin 5,000 unit SQ Q8H 07/01/18 [History] Iron Polysaccharide Complex [Ferrex 150] 150 mg PO DAILY 07/01/18 [History] Nortriptyline [Pamelor] 25 mg PO HS 07/01/18 [History] Valproic Acid (As Sodium Salt) [Valproic Acid] 500 mg PO Q8H 07/01/18 [History] Ascorbic Acid [Vitamin C] 500 mg PO BID 07/28/18 [History] Budesonide/Formoterol 80/4.5 [Symbicort 80/4.5] 2 puff IH BID 07/28/18 [History ] Lactulose [Enulose] 20 gm PO TIDWM 07/28/18 [History] Lidocaine [Aspercreme] 1 each TP DAILY 07/28/18 [History] Melatonin [Melatin] 3 mg PO HS 07/28/18 [History] Multivitamin [Multivitamins] 1 each PO DAILY 07/28/18 [History] OLANZapine [Zyprexa] 10 mg PO QPM 07/28/18 [History] Zinc Sulfate 220 mg PO BID 07/28/18 [History] 0.9 % Sodium Chloride [Monoject Prefill] 1 appl IV BID 08/04/18 [History] Acetaminophen [Tylenol] 650 mg PO Q8H PRN 08/04/18 [History] Patient Taking Own Medication [Patient Taking Own Medication] 30 ml IR Q12H PRN 08/04/18 [History] Meropenem [Merrem] 1,000 mg IVPB Q8HR #30 vial 08/07/18 [Rx] Tramadol HCl [Ultram] 50 mg PO Q8H PRN 10 Days #30 tablet 08/07/18 [Rx] Allergies/Adverse Reactions: 3 Allergy/AdvReac Type Severity Reaction Status Date / Time No Known Allergies Allergy Verified 08/02/18 22:22 Date of admission: 08/03/18 01:10 Primary care physician: Jayson Gutierrez Consults: 08/03/18 03:29 Consult to Infectious Diseases [CONS] Routine Consulting Provider: Infectious Disease Catherine Reason for Consult: Decubitis Ulcer complicated by Osteomylitis Call Completed: No 08/03/18 05:05 Consult to Pastoral Services [CONS] Routine Comment: 08/03/18 05:59 Consult to Wound Care [CONS] Routine Reason for Consult: Patient has multiple extensive wounds and ulcers located on the buttock area. Call Completed: No 08/04/18 14:55 Consult to Podiatry [CONS] Routine Consulting Provider: [facility] Reason for Consult: Right heel ulcer, ? source of sepsis Time Notified: 14:55 Call Completed: Yes Discharging clinician: Kaelyn Alcala Anticipated date of discharge: 08/07/18 - Constitutional Vitals: Temp Pulse Resp BP Pulse Ox 98.0 F 89 18 98/57 98 08/05/18 11:26 08/05/18 11:26 08/05/18 11:26 08/05/18 11:26 08/05/18 11:26 Exam: General: Alert and oriented 3. Patient lying in bed in no acute distress Skin: Several large decubitus ulcers. The largest one measuring approximately 10 cm in diameter. No evidence of drainage or surrounding erythema. Foul- smelling. 4 cm ulcer near the left Bartok. No evidence of surrounding erythema or purulent drainage 5 cm ulcer involving the right heel with black eschar covering the wound. HEENT:EOM, pupils equal, round and reactive. Cardiovascular:Normal S1 & S2, no rubs, murmurs or gallops. No JVD. Pulse regular. Lungs:Normal breath sounds, no wheezes or crackles. Abdomen:Soft, non-tender, no rigidity. Extremities:No deformity, no edema or tenderness, no joint swelling or clubbing. Neurological:Normal cognition and motor skills. Pulses:Carotid and radial pulses normal +2. Rest of the physical exam is non contributory - Patient Status Disposition: Transfer SNF Condition: Serious Overall status at discharge: patient is not back to baseline - Discharge Instructions Follow Up With: Jayson Gutierrez PAC [Primary Care Provider] - - Diet and Activity Activity: as per physical therapy Diet: regular diet
--- NOTE | 2018-08-05 18:17 | Physician Discharge Referral ---
ExtendedCare Referral Info Provider in Charge after Transfer: PCP Institutional Level of Care: Skilled - Diagnosis (1) Osteomyelitis of coccyx Priority: Primary Status: Acute (2) Pressure ulcer of sacral region, stage 4 Priority: Primary Status: Chronic (3) Fever Priority: Primary Status: Acute (4) Tachycardia Priority: Primary Status: Acute (5) Hepatitis C Priority: Secondary Status: Chronic (6) Drug abuse, IV Priority: Secondary Status: Chronic (7) Abnormal urinalysis Priority: Secondary Status: Acute (8) Medical non-compliance Priority: Secondary Status: Acute - Transfer Medications Home Medications: Aspirin 81 mg PO DAILY tab.chew 12/30/17 [Rx] Albuterol Neb [Proventil Neb] 2.5 mg IH Q6H PRN 07/01/18 [History] Baclofen [Lioresal] 5 mg PO TID 07/01/18 [History] Doxycycline Hyclate [Vibramycin] 100 mg PO BID 07/01/18 [History] Famotidine [Heartburn Prevention] 20 mg PO Q12H 07/01/18 [History] Gabapentin [Neurontin] 400 mg PO TID 07/01/18 [History] Heparin 5,000 unit SQ Q8H 07/01/18 [History] Iron Polysaccharide Complex [Ferrex 150] 150 mg PO DAILY 07/01/18 [History] Nortriptyline [Pamelor] 25 mg PO HS 07/01/18 [History] Tramadol HCl [Ultram] 50 mg PO Q8H PRN 07/01/18 [History] Valproic Acid (As Sodium Salt) [Valproic Acid] 500 mg PO Q8H 07/01/18 [History] Ascorbic Acid [Vitamin C] 500 mg PO BID 07/28/18 [History] Budesonide/Formoterol 80/4.5 [Symbicort 80/4.5] 2 puff IH BID 07/28/18 [History ] Ertapenem [INVanz] 1,000 mg IVPB DAILY 07/28/18 [History] Lactulose [Enulose] 20 gm PO TIDWM 07/28/18 [History] Lidocaine [Aspercreme] 1 each TP DAILY 07/28/18 [History] Melatonin [Melatin] 3 mg PO HS 07/28/18 [History] Multivitamin [Multivitamins] 1 each PO DAILY 07/28/18 [History] OLANZapine [Zyprexa] 10 mg PO QPM 07/28/18 [History] Zinc Sulfate 220 mg PO BID 07/28/18 [History] 0.9 % Sodium Chloride [Monoject Prefill] 1 appl IV BID 08/04/18 [History] Acetaminophen [Tylenol] 650 mg PO Q8H PRN 08/04/18 [History] Patient Taking Own Medication [Patient Taking Own Medication] 30 ml IR Q12H PRN 08/04/18 [History] Allergies/Adverse Reactions: 3 Allergy/AdvReac Type Severity Reaction Status Date / Time No Known Allergies Allergy Verified 08/02/18 22:22 - Respiratory Orders Smoking Cessation: Smoking cessation has been advised. For more information, call the [place] Tobacco Quit Line at 7-528-QGEY-NOW. - Ancillary Orders May use pressure relief devices daily prn - Advance Directives Code Status: Full Code - Rehabiliation Orders Rehab Orders: Evaluation for Physical Therapy - Diet Orders Regular CERTIFICATION: I certify that the transfer of the above named patient to an Extended Care Facility is necessary for the continuing treatment of the diagnosis listed. The above information is true and accurate reflection of patient's current condition. Confidential - Redisclosure prohibited without a patient's written consent.
--- NOTE | 2018-08-05 18:31 | Internal Med Progress Note ---
Hospitalist Progress Note - Encounter Date of Encounter: 08/05/18 Time of Encounter: 18:24 - Subjective Interval History: Pt refuses to be transferred. States he would like to follow up out pt in 2 weeks with plastics. Pt also refusing dressing changes. He denies, fever, chills, N/V, diarrhea. Denies CP or SOB. - Exam Vitals: Temp Pulse Resp BP Pulse Ox 98.0 F 89 18 98/57 98 08/05/18 11:26 08/05/18 11:26 08/05/18 11:26 08/05/18 11:08/05/18 11:26 Exam: General: Alert and oriented 3. Patient lying in bed in no acute distress Skin: Several large decubitus ulcers. The largest one measuring approximately 10 cm in diameter. No evidence of drainage or surrounding erythema. Foul- smelling. 4 cm ulcer near the left Bartok. No evidence of surrounding erythema or purulent drainage 5 cm ulcer involving the right heel with black eschar covering the wound. HEENT:EOM, pupils equal, round and reactive. Cardiovascular:Normal S1 & S2, no rubs, murmurs or gallops. No JVD. Pulse regular. Lungs:Normal breath sounds, no wheezes or crackles. Abdomen:Soft, non-tender, no rigidity. Extremities:No deformity, no edema or tenderness, no joint swelling or clubbing. Neurological:Normal cognition and motor skills. Pulses:Carotid and radial pulses normal +2. Rest of the physical exam is non contributory - Assessment and Plan (1) Osteomyelitis of coccyx Current Visit: No Status: Acute Assessment and Plan: Pt being followed by ID and CT reviewed with raiolopgist and appears to be acute on chronic OM. Most recent culture from 07/01/18 grew Proteus mirabilis S: Ertapenem, Zosyn, tobramycin and Morganella Morgagni S: Carbapenems, aminoglycosides, Bactrim. patient had wound dressing change done.documentation on admission revealed purulent drainage and foul odor from the wounds. He again declines transfer to [facility] despite our recommendations. LIZ Dced Meropenem and started on INvanz. Debating on Vanc for 6-8 weeks. Would like patient's to stay 1 -2 more days. (2) Pressure ulcer of sacral region, stage 4 Current Visit: Yes Status: Chronic Assessment and Plan: Wound care consulting (3) Fever Current Visit: Yes Status: Acute Assessment and Plan: Resolved. (4) Tachycardia Current Visit: Yes Status: Acute Assessment and Plan: Improving (5) Hepatitis C Current Visit: No Status: Chronic (6) Drug abuse, IV Current Visit: No Status: Chronic (7) Abnormal urinalysis Current Visit: Yes Status: Acute Assessment and Plan: Will send for culture and await results (8) Medical non-compliance Current Visit: Yes Status: Acute Assessment and Plan: Pt refusing dressing changes 08/04/18 but finally agreed to it today. Pt refusing to be transferred to [facility] for plastic surgery evaluation. DVT Prophylaxis: Heparin - Summary of Assessment and Plan Summary of Assessment and Plan: Patient is 52 y/o male wiith past medical history significant for spinal stenosis and paraplegic, mood disorder and hepatitis C who was recently discharged 3 days ago for treatment of acute versus chronic sacral osteomyelitis and discharged on IV antibiotics. Patient again presents from the [facility] with a reported fever spike of 104. Patient found to be mildly tachycardic in the 120s. His laboratory findings are again notable for a slight white blood cell count of 13.3 and afebrile. Patients sacral wound cultures last time (07/01/18) grew Proteus mirabilis and Morganella which were both only sensitive to ertapenem. Patient was seen by Infectious disease with recommendations that patient be transferred to [facility] for evaluation and management by plastic surgery for deep debridement of bone due to persistent osteomyelitis. Patient however declined to be transferred to [facility] and [facility]. Patient currently denies any fever, chills or pain. - Time Spent with Patient Total time spent is greater than 50% in coordination of care (as documented) at patient's floor/unit and/or counseling patient: less than 15 minutes Internal Medicine: Result - Labs CBC & Chem 7: 08/04/18 05:48 08/04/18 05:48 - ABG Interpretation ABG results: PT/INR, D-dimer PT 12.4 Seconds (9.4-12.1) H 08/02/18 22:55 - Impressions Impressions Chest CT 08/04/18 17:00 IMPRESSION: No convincing evidence of pneumonia is identified. There is mild airspace disease within the lower lungs bilaterally, seen mainly within a dependent location, which is most likely atelectasis. There is mild bronchial wall thickening which suggests acute and/or chronic bronchitis. There is a background of emphysema. Nodular opacity within the right lung apex measuring approximately 5 mm. Follow-up recommendations below. RECOMMENDATIONS: Fleischner Society guidelines for follow-up and management of incidentally detected pulmonary nodules: Single Solid Nodule: Nodule size less than 6 mm In a low-risk patient, no routine follow-up. In a high-risk patient, optional CT at 12 months. - Low risk patients include individuals with minimal or absent history of smoking and other known risk factors. - High risk patients include individuals with a history or smoking or known risk factors. Radiology 2017 http://pubs.rsna.org/doi/full/10.1148/radiol.[email or web address] D/ / Dorian Nazario MD / Dorian Nazario MD Interpreting Provider: Dorian Nazario MD Ankle X-Ray 08/04/18 19:58 IMPRESSION: No convincing radiographic evidence of osteomyelitis. D/ / Dorian Nazario MD / Dorian Nazario MD Interpreting Provider: Dorian Nazario MD Ankle X-Ray 08/04/18 19:58 IMPRESSION: Ulceration of the heel. No definite radiographic evidence of osteomyelitis. D/ / Dorian Nazario MD / Dorian Nazario MD Interpreting Provider: Dorian Nazario MD Consult Discharge Plan - Plan Referrals: Jayson Gutierrez, PAC [Primary Care Provider] - (3) Fever Qualifiers: Fever type: malignant hyperthermia due to anesthesia Encounter type: initial encounter Qualified Code(s): T88.3XXA - Malignant hyperthermia due to anesthesia, initial encounter (5) Hepatitis C Qualifiers: Viral hepatitis chronicity: unspecified Hepatic coma status: without hepatic coma Qualified Code(s): B19.20 - Unspecified viral hepatitis C without hepatic coma
[2018-08-05] MEDS: Melatonin 3 MG TABLET PO SCH (21:47)
[2018-08-06] MEDS: *HR* Heparin 5,000 UNIT/ML VIAL SQ SCH ×3 (00:32→16:04)
[2018-08-06] MEDS: Valproic Acid 250 MG CAPSULE PO SCH ×3 (00:35→16:04)
[2018-08-06] MEDS: Meropenem 1,000 MG in 0.9 % Sodium Chloride Mini Bag 100 ML IVPB SCH ×3 (00:35→16:03)
[2018-08-06] MEDS: Famotidine 20 MG TABLET PO SCH ×2 (00:37→12:42)
[2018-08-06] MEDS: Budesonide/Formoterol 80/4.5 MDI IH SCH ×2 (07:36→21:19)
[2018-08-06 08:20] LABS: BUN/Creatinine Ratio 21 (6-26); Blood Urea Nitrogen 11 mg/dL (6-20); Calcium 9.6 mg/dL (8.6-10.3); Carbon Dioxide 29 mEq/L (23-29); Chloride 102 mEq/L (98-107); Glucose 91 mg/dL (70-105); Osmolality,Calculated 281 (280-300); Potassium 4.2 mEq/L (3.5-5.1); Sodium 136 mEq/L (136-145); eGFR For Non-African Americans > 60 (> 60)
[2018-08-06 08:24] LABS: Basophils % 0.4 %; Eosinophils # 0.7 K/mcL (0.0-0.6); Hematocrit 29.7 % (37.5-50.1); Hemoglobin 9.3 g/dL (12.9-16.9); Immature Granulocytes % 0.4 % (0-4); Lymphocytes # 2.4 K/mcL (0.6-4.6); Lymphocytes % 29.6 %; Mean Corpuscular HGB Conc 31.3 g/dL (31.6-35.5); Mean Corpuscular Hemoglobin 27.8 pg (28.0-33.3); Mean Corpuscular Volume 88.7 fL (83.0-100.0); Mean Platelet Volume 8.9 fL (9.4-12.4); Monocytes # 0.7 K/mcL (0.0-1.3); Monocytes % 8.1 %; Neutrophils # 4.4 K/mcL (1.6-8.9); Platelet Count 317 K/mcL (140-400); Red Blood Count 3.35 M/mcL (4.19-5.50); Segmented Neutrophils % 53.5 %
[2018-08-06] MEDS: Iron Polysaccharide Complex 150 MG CAPSULE PO SCH (09:02)
[2018-08-06] MEDS: Aspirin 81 MG TAB.CHEW PO SCH (09:02)
[2018-08-06] MEDS: Gabapentin 400 MG CAPSULE PO SCH ×3 (09:02→21:22)
[2018-08-06] MEDS: Baclofen 10 MG TABLET PO SCH ×3 (09:02→21:21)
--- NOTE | 2018-08-06 13:47 | Internal Med Progress Note ---
Hospitalist Progress Note - Encounter Date of Encounter: 08/06/18 Time of Encounter: 13:35 - Subjective Interval History: Pt refuses to be transferred. States he would like to follow up out pt in 2 weeks with plastics. Pt also refusing dressing changes. He denies, fever, chills, N/V, diarrhea. Denies CP or SOB. - Exam Vitals: Temp Pulse Resp BP Pulse Ox 97.4 F L 98 17 97/63 99 08/06/18 10:13 08/06/18 10:13 08/06/18 10:13 08/06/18 10:13 08/06/18 10:13 Exam: General: Alert and oriented 3. Patient lying in bed in no acute distress Skin: Several large decubitus ulcers. The largest one measuring approximately 10 cm in diameter. No evidence of drainage or surrounding erythema. Foul- smelling. 4 cm ulcer near the left Bartok. No evidence of surrounding erythema or purulent drainage 5 cm ulcer involving the right heel with black eschar covering the wound. HEENT:EOM, pupils equal, round and reactive. Cardiovascular:Normal S1 & S2, no rubs, murmurs or gallops. No JVD. Pulse regular. Lungs:Normal breath sounds, no wheezes or crackles. Abdomen:Soft, non-tender, no rigidity. Extremities:No deformity, no edema or tenderness, no joint swelling or clubbing. Neurological:Normal cognition and motor skills. Pulses:Carotid and radial pulses normal +2. Rest of the physical exam is non contributory - Assessment and Plan (1) Osteomyelitis of coccyx Current Visit: No Status: Acute Assessment and Plan: Pt being followed by ID and CT reviewed with radiologist and appears to be acute on chronic OM. Most recent culture from 07/01/18 grew Proteus mirabilis S: Ertapenem, Zosyn, tobramycin and Morganella Morgagni S: Carbapenems, aminoglycosides, Bactrim. Patient had wound dressing change done.documentation on admission revealed purulent drainage and foul odor from the wounds. He again declines transfer to [facility] despite our recommendations. ID continuing Meropenem and Vanc for now. Debating on Vanc for 6-8 weeks. Plan on re imaging the pt's CT lumbar, thoracic, and cervical spine to rule out abscess. Would like patient's to stay 1 -2 more days. (2) Pressure ulcer of sacral region, stage 4 Current Visit: Yes Status: Chronic Assessment and Plan: Wound care consulting. (3) Fever Current Visit: Yes Status: Acute Assessment and Plan: Resolved. (4) Tachycardia Current Visit: Yes Status: Acute Assessment and Plan: Resolved (5) Hepatitis C Current Visit: No Status: Chronic (6) Drug abuse, IV Current Visit: No Status: Chronic (7) Abnormal urinalysis Current Visit: Yes Status: Acute Assessment and Plan: Urine culture no growth (8) Medical non-compliance Current Visit: Yes Status: Acute Assessment and Plan: Pt was refusing dressing changes 08/04/18 but finally agreed to it today. Pt refusing to be transferred to [facility] for plastic surgery evaluation. DVT Prophylaxis: Heparin - Summary of Assessment and Plan Summary of Assessment and Plan: Patient is 52 y/o male wiith past medical history significant for spinal stenosis and paraplegic, mood disorder and hepatitis C who was recently discharged 3 days ago for treatment of acute versus chronic sacral osteomyelitis and discharged on IV antibiotics. Patient again presents from the [facility] with a reported fever spike of 104. Patient found to be mildly tachycardic in the 120s. His laboratory findings are again notable for a slight white blood cell count of 13.3 and afebrile. Patients sacral wound cultures last time (07/01/18) grew Proteus mirabilis and Morganella which were both only sensitive to ertapenem. Patient was seen by Infectious disease with recommendations that patient be transferred to [facility] for evaluation and management by plastic surgery for deep debridement of bone due to persistent osteomyelitis. Patient however declined to be transferred to [facility] and wished to be transferred back [facility]. Patient currently denies any fever, chills or pain. - Time Spent with Patient Total time spent is greater than 50% in coordination of care (as documented) at patient's floor/unit and/or counseling patient: 25 - 35 minutes Plan of Care Discussed with: patient Internal Medicine: Result - Labs CBC & Chem 7: 08/06/18 04:00 08/06/18 04:00 Labs: Short CBC 08/06/18 Range/Units 04:00 WBC 8.3 (4.3-11.1) K/mcL Hgb 9.3 L (12.9-16.9) g/dL Hct 29.7 L (37.5-50.1) % Plt Count 317 (140-400) K/mcL Neutrophils # 4.4 (1.6-8.9) K/mcL BMP 08/06/18 04:00 Sodium 136 Potassium 4.2 Chloride 102 Carbon Dioxide 29 BUN 11 Creatinine 0.53 L Glucose 91 Calcium 9.6 - ABG Interpretation ABG results: PT/INR, D-dimer PT 12.4 Seconds (9.4-12.1) H 08/02/18 22:55 Consult Discharge Plan - Plan Referrals: Jayson Gutierrez, PAC [Primary Care Provider] - (3) Fever Qualifiers: Fever type: malignant hyperthermia due to anesthesia Encounter type: initial encounter Qualified Code(s): T88.3XXA - Malignant hyperthermia due to anesthesia, initial encounter (5) Hepatitis C Qualifiers: Viral hepatitis chronicity: unspecified Hepatic coma status: without hepatic coma Qualified Code(s): B19.20 - Unspecified viral hepatitis C without hepatic coma
--- NOTE | 2018-08-06 14:08 | Infectious Disease Progress No ---
Date of Encounter: 08/06/18 Time of Encounter: 11:25 - Assessment and Plan (1) Sepsis Current Visit: Yes Status: Acute The patient had two SIRS Criteria on admission plus fever at the ECF. Etiology unclear. The patient does have known osteomyelitis of the sacrum/coccyx , but has been on appropriate antibiotic therapy. Additionally, his CXR shows possible PNA. He also has a large pressure ulcer to the right heel, although clinically it does not appear infected. He also has a RUE PICC line, but it does not appear infected on exam. Improved. WBC has normalized. Tachycardia improved. He has been afebrile since admission. Blood culture drawn 08/02/18 x 1 set is no growth to date. Repeat blood cultures x 2 sets drawn 08/03/18 are NGTD. Given the patient's history of epidural abscess, will check CT of the cervical, thoracic, and lumbar spines to evaluation for recurrence of infection. If negative, can discontinue Vancomycin and discharge to ECF on Meropenem and oral doxycycline. Qualifiers: Sepsis type: sepsis due to unspecified organism Qualified Code(s): A41.9 - Sepsis, unspecified organism (2) Osteomyelitis Current Visit: Yes Status: Acute CT of the abdomen and pelvis completed during his most recent hospitalization reveals large sacral decubitus ulcer with underlying osseous irregularity involving the sacrum and coccyx. Possibly the left ischium and left greater trochanter as well suggesting osteomyelitis. Most recent culture from 07/01/18 grew Proteus mirabilis S: Ertapenem, Zosyn, tobramycin and Morganella Morgagni S: Carbapenems, aminoglycosides, Bactrim. Repeat cultures from [facility] on 07/11 were positive for PSEA. Dr. Durham did speak with radiology to discuss the CT findings and this appears to be acute on chronic osteomyelitis. Review of [facility] records reveals that the patient was discharged from [facility] on Ertapenem. The patient declines transfer to [facility] despite our recommendations, but states he is willing to see them as an outpatient. Repeat ESR and CRP.--> 89, 91 Continue meropenem 1 gram IV Q8H. Continue Vancomycin IV. Pharmacy to dose. Goal trough ~15. Duration of treatment likely 6-8 weeks. Again recommend transfer to [facility] for wound care and plastic surgery evaluation. Continue contact isolation per protocol. Monitor renal function and for drug toxicity and dose-adjust antibiotics. Qualifiers: Osteomyelitis type: other Osteomyelitis location: multiple sites Qualified Code(s): M86.8X0 - Other osteomyelitis, multiple sites (3) Pressure ulcer of both feet, unstageable Current Visit: No Status: Acute Location: Right heel and left lateral ankle. Likely secondary to ongoing pressure. Clinically, does not appear infected, but there is a large amount of eschar noted. Podiatry consulted. Appreciate recommendations. Wound care per the Podiatry team. X-rays of the bilateral ankles negative for OM. (4) Pressure ulcer of sacral region, stage 4 Current Visit: Yes Status: Chronic Follows with [facility] wound care. Aggressive offloading and wound care required. Recommend transfer to [facility] for plastic surgery evaluation. (5) Weakness of both lower extremities Current Visit: No Status: Chronic (6) COPD (chronic obstructive pulmonary disease) Current Visit: No Status: Chronic Qualifiers: COPD type: emphysema Emphysema type: unspecified Qualified Code(s): J43.9 - Emphysema, unspecified (7) Hepatitis C Current Visit: No Status: Chronic Qualifiers: Viral hepatitis chronicity: unspecified Hepatic coma status: without hepatic coma Qualified Code(s): B19.20 - Unspecified viral hepatitis C without hepatic coma (8) Tobacco use Current Visit: No Status: Chronic (9) Epidural abscess Current Visit: Yes Status: Resolved Diagnosed in December. Discharged from [facility] on chronic oral doxycycline for chronic suppressive therapy due to hardware in his back. Get CT of the cervical, thoracic, and lumbar spines to evaluate for recurrence given the patient's recent history of fevers. Continue Vancomycin as above for now, but re-start doxycycline if/when Vanc is stopped. Per [facility], continue through 09/22/18. - Subjective Interval history: Patient seen and examined. No acute events noted overnight. Patient states overall he feels the same. Denies any fevers, chills, rigors. Denies chest pain, shortness of breath, or cough. Denies nausea, vomiting, diarrhea, or constipation. Denies abdominal pain and states his Willis catheter remains patent. Reports good output from his colostomy. Denies appetite changes. Reports some mild back pain. Denies oral thrush or new skin lesions. Infect Dis PN-Objective Data - Labs CBC & Chem 7: 08/06/18 04:00 08/06/18 04:00 Labs: Laboratory Results - last 24 hr 08/06/18 08/06/18 08/06/18 04:00 04:00 06:00 WBC 8.3 RBC 3.35 L Hgb 9.3 L Hct 29.7 L MCV 88.7 MCH 27.8 L MCHC 31.3 L RDW 15.0 H Plt Count 317 MPV 8.9 L Immature Gran % 0.4 Seg Neutrophils % 53.5 Lymphocytes % 29.6 Monocytes % 8.1 Eosinophils % 8.0 Basophils % 0.4 Neutrophils # 4.4 Lymphocytes # 2.4 Monocytes # 0.7 Eosinophils # 0.7 H Basophils # 0.0 Sodium 136 Potassium 4.2 Chloride 102 Carbon Dioxide 29 BUN 11 Creatinine 0.53 L Est GFR ( Amer) > 60 Est GFR (Non-Af Amer) > 60 BUN/Creatinine Ratio 21 Glucose 91 Calculated Osmolality 281 Calcium 9.6 Vancomycin Trough 16 H Cultures: Cultures 08/03/18 15:05 Blood Culture - Preliminary Peripheral Venipuncture Culture is incubating and being continuously monitored for growth. Final report to follow. 08/03/18 15:00 Blood Culture - Preliminary Peripheral Venipuncture Culture is incubating and being continuously monitored for growth. Final report to follow. 08/03/18 13:59 Legionella Antigen - Final Urine,[place] Streptococcus pneumoniae Antigen (M - Final Serology 08/04/18 Range/Units 05:57 Chlamy pneumoniae PCR Not Detected (Not Detect) Adenovirus (PCR) Not Detected (Not Detect) B. pertussis DNA (PCR) Not Detected (Not Detect) B.parapertussis DNA PCR Not Detected (Not Detect) Coronavirus OC43 (PCR) Not Detected (Not Detect) Coronavirus HKU1 (PCR) Not Detected (Not Detect) Coronavirus 229E (PCR) Not Detected (Not Detect) Coronavirus NL63 (PCR) Not Detected (Not Detect) Human Metapneumovir PCR Not Detected (Not Detect) Influenza A (H1) PCR Not Detected (Not Detect) Influ A (H1N1/09) PCR Not Detected (Not Detect) Influenza A (H3) PCR Not Detected (Not Detect) Influenza A Untype (PCR) Not Detected (Not Detect) Influenza Type B (PCR) Not Detected (Not Detect) M.pneumoniae DNA (PCR) Not Detected (Not Detect) Parainfluenza 1 (PCR) Not Detected (Not Detect) Parainfluenza 2 (PCR) Not Detected (Not Detect) Parainfluenza 3 (PCR) Not Detected (Not Detect) Parainfluenza 4 (PCR) Not Detected (Not Detect) RSV (PCR) Not Detected (Not Detect) Entero/Rhino (PCR) Not Detected (Not Detect) Exam - Constitutional Vitals: Temp Pulse Resp BP Pulse Ox 97.4 F L 98 17 97/63 99 08/06/18 10:13 08/06/18 10:13 08/06/18 10:13 08/06/18 10:13 08/06/18 10:13 General appearance: cooperative, no acute distress, thin - Head Head exam: Present: atraumatic, normal inspection, normocephalic - Eye Eye exam: Present: EOMI, normal appearance, PERRL Pupils: Present: normal accommodation - ENT ENT exam: Present: mucous membranes moist - Neck Neck exam: Present: normal inspection - Respiratory Respiratory exam: Present: CTAB. Absent: rales, respiratory distress, rhonchi, wheezes - Cardiovascular Cardiovascular exam: Present: RRR, +S1, +S2 - GI/Abdominal GI/Abdominal exam: Present: normal bowel sounds, soft. Absent: distended, tenderness Additional comments: Colostomy noted to the left abdomen with soft brown stool noted in the collection bag. Willis catheter noted to be draining clear yellow urine. - Extremities Exam Extremities exam: Absent: joint swelling, normal inspection (Contractures noted to the BLE), pedal edema, tenderness - Neurological Exam Neurological exam: Present: alert, oriented X3. Absent: no focal deficits ( Diminished sensation and movement noted to the BLE.) - Psychiatric Psychiatric exam: Present: normal affect, normal mood - Skin Skin exam: Present: dry, intact, normal color, warm Consult Discharge Plan - Plan Referrals: Jayson Gutierrez, PAC [Primary Care Provider] - - Attending Attestation I examined this patient and my medical decision-making was reviewed with the Resident Physician. I agree with the documented findings, disposition and treatment plan as described except to the extent set forth below.
[2018-08-06] MEDS: OLANZapine 10 MG TAB.RAPDIS PO SCH (17:42)
[2018-08-06] MEDS ORDERED: Isovue-370 500 ML INFUS..BTL IV ONE (18:27)
[2018-08-06] MEDS: Melatonin 3 MG TABLET PO SCH (21:22)
[2018-08-06] MEDS: traMADol 50 MG TABLET PO PRN (21:35)
[2018-08-07] MEDS: *HR* Heparin 5,000 UNIT/ML VIAL SQ SCH ×3 (02:13→15:15)
[2018-08-07] MEDS: Meropenem 1,000 MG in 0.9 % Sodium Chloride Mini Bag 100 ML IVPB SCH ×3 (02:13→15:13)
[2018-08-07] MEDS: Valproic Acid 250 MG CAPSULE PO SCH ×3 (02:15→15:16)
[2018-08-07] MEDS: Famotidine 20 MG TABLET PO SCH ×2 (02:16→11:38)
[2018-08-07] MEDS: Budesonide/Formoterol 80/4.5 MDI IH SCH (07:44)
[2018-08-07] MEDS: Aspirin 81 MG TAB.CHEW PO SCH (07:47)
[2018-08-07] MEDS: Iron Polysaccharide Complex 150 MG CAPSULE PO SCH (07:47)
[2018-08-07] MEDS: Baclofen 10 MG TABLET PO SCH ×2 (07:48→15:16)
[2018-08-07] MEDS: Gabapentin 400 MG CAPSULE PO SCH ×2 (07:48→15:16)
[2018-08-07 11:25] VITALS: BP 93/64
[2018-08-07] MEDS: traMADol 50 MG TABLET PO PRN (11:38)
--- NOTE | 2018-08-07 12:32 | Infectious Disease Progress No ---
Date of Encounter: 08/07/18 Time of Encounter: 12:30 - Assessment and Plan (1) Sepsis Current Visit: Yes Status: Acute The patient had two SIRS Criteria on admission plus fever at the ECF. Etiology unclear. The patient does have known osteomyelitis of the sacrum/coccyx , but has been on appropriate antibiotic therapy. Additionally, his CXR shows possible PNA. He also has a large pressure ulcer to the right heel, although clinically it does not appear infected. He also has a RUE PICC line, but it does not appear infected on exam. Improved. WBC has normalized. Tachycardia improved. He has been afebrile since admission. Blood culture drawn 08/02/18 x 1 set is no growth to date. Repeat blood cultures x 2 sets drawn 08/03/18 are NGTD. Given the patient's history of epidural abscess, will check CT of the cervical, thoracic, and lumbar spines to evaluation for recurrence of infection. --> negative for acute abnormality. Discontinue Vancomycin. Start PO doxycycline 100mg PO BID. Continue Meropenem 1 gram IV Q8H. Qualifiers: Sepsis type: sepsis due to unspecified organism Qualified Code(s): A41.9 - Sepsis, unspecified organism (2) Osteomyelitis Current Visit: Yes Status: Acute CT of the abdomen and pelvis completed during his most recent hospitalization reveals large sacral decubitus ulcer with underlying osseous irregularity involving the sacrum and coccyx. Possibly the left ischium and left greater trochanter as well suggesting osteomyelitis. Most recent culture from 07/01/18 grew Proteus mirabilis S: Ertapenem, Zosyn, tobramycin and Morganella Morgagni S: Carbapenems, aminoglycosides, Bactrim. Repeat cultures from [facility] on 07/11 were positive for PSEA. Dr. Durham did speak with radiology to discuss the CT findings and this appears to be acute on chronic osteomyelitis. Review of [facility] records reveals that the patient was discharged from [facility] on Ertapenem. The patient declines transfer to [facility] despite our recommendations, but states he is willing to see them as an outpatient. Repeat ESR and CRP.--> 89, 91 Continue meropenem 1 gram IV Q8H. Discontinue vancomycin. Duration of treatment likely 6-8 weeks. Again recommend transfer to [facility] for wound care and plastic surgery evaluation. Patient refuses transfer there, but is agreeable to follow up with wound care and ID there. Continue contact isolation per protocol. Monitor renal function and for drug toxicity and dose-adjust antibiotics. Qualifiers: Osteomyelitis type: other Osteomyelitis location: multiple sites Qualified Code(s): M86.8X0 - Other osteomyelitis, multiple sites (3) Pneumonia Current Visit: No Status: Ruled-out Ruled out. CXR shows left basilar atelectasis vs. PNA. Get RIP.--> negative. Check S. pneumo and Legionella UATs.--> negative. Send sputum for culture if the patient is able to provide an adequate specimen. CT chest negative for PNA. Qualifiers: Pneumonia type: due to unspecified organism Laterality: right Lung location: unspecified part of lung Qualified Code(s): J18.9 - Pneumonia, unspecified organism (4) UTI (urinary tract infection) Current Visit: No Status: Ruled-out Urinalysis positive for pyuria, but the patient is asymptomatic, although I'm not sure if the patient has full sensation of his bladder given his paresis to the BLE. Urine culture negative. Qualifiers: Urinary tract infection type: acute cystitis Hematuria presence: with hematuria Qualified Code(s): N30.01 - Acute cystitis with hematuria (5) Pressure ulcer of both feet, unstageable Current Visit: No Status: Acute Location: Right heel and left lateral ankle. Likely secondary to ongoing pressure. Clinically, does not appear infected, but there is a large amount of eschar noted. Podiatry consulted. Appreciate recommendations. Wound care per the Podiatry team. X-rays of the bilateral ankles negative for OM. (6) Pressure ulcer of sacral region, stage 4 Current Visit: Yes Status: Chronic Follows with [facility] wound care. Aggressive offloading and wound care required. Recommend transfer to [facility] for plastic surgery evaluation. (7) Weakness of both lower extremities Current Visit: No Status: Chronic (8) COPD (chronic obstructive pulmonary disease) Current Visit: No Status: Chronic Qualifiers: COPD type: emphysema Emphysema type: unspecified Qualified Code(s): J43.9 - Emphysema, unspecified (9) Hepatitis C Current Visit: No Status: Chronic Qualifiers: Viral hepatitis chronicity: unspecified Hepatic coma status: without hepatic coma Qualified Code(s): B19.20 - Unspecified viral hepatitis C without hepatic coma (10) Tobacco use Current Visit: No Status: Chronic (11) Epidural abscess Current Visit: Yes Status: Resolved Diagnosed in December. Discharged from [facility] on chronic oral doxycycline for chronic suppressive therapy due to hardware in his back. Get CT of the cervical, thoracic, and lumbar spines to evaluate for recurrence given the patient's recent history of fevers. Vanc/doxycycline recommendations as above. Per [facility], continue through 09/22/18. - Subjective Interval history: Patient seen and examined. No acute events noted overnight. Patient states overall he feels the same. Denies any fevers, chills, rigors. Denies chest pain, shortness of breath, or cough. Denies nausea, vomiting, diarrhea, or constipation. Denies abdominal pain and states his Willis catheter remains patent. Reports good output from his colostomy. Denies appetite changes. Reports some mild back pain. Denies oral thrush or new skin lesions. Infect Dis PN-Objective Data - Labs CBC & Chem 7: 08/06/18 04:00 08/06/18 04:00 Labs: Laboratory Results - last 24 hr 08/06/18 10:38 Nasal Screen MRSA (PCR) Negative Cultures: Cultures 08/03/18 15:05 Blood Culture - Preliminary Peripheral Venipuncture Culture is incubating and being continuously monitored for growth. Final report to follow. 08/03/18 15:00 Blood Culture - Preliminary Peripheral Venipuncture Culture is incubating and being continuously monitored for growth. Final report to follow. 08/03/18 13:59 Legionella Antigen - Final Urine,[place] Streptococcus pneumoniae Antigen (M - Final Serology 08/06/18 08/04/18 Range/Units 10:38 05:57 Nasal Screen MRSA (PCR) Negative (Negative) Chlamy pneumoniae PCR Not Detected (Not Detect) Adenovirus (PCR) Not Detected (Not Detect) B. pertussis DNA (PCR) Not Detected (Not Detect) B.parapertussis DNA PCR Not Detected (Not Detect) Coronavirus OC43 (PCR) Not Detected (Not Detect) Coronavirus HKU1 (PCR) Not Detected (Not Detect) Coronavirus 229E (PCR) Not Detected (Not Detect) Coronavirus NL63 (PCR) Not Detected (Not Detect) Human Metapneumovir PCR Not Detected (Not Detect) Influenza A (H1) PCR Not Detected (Not Detect) Influ A (H1N1/09) PCR Not Detected (Not Detect) Influenza A (H3) PCR Not Detected (Not Detect) Influenza A Untype (PCR) Not Detected (Not Detect) Influenza Type B (PCR) Not Detected (Not Detect) M.pneumoniae DNA (PCR) Not Detected (Not Detect) Parainfluenza 1 (PCR) Not Detected (Not Detect) Parainfluenza 2 (PCR) Not Detected (Not Detect) Parainfluenza 3 (PCR) Not Detected (Not Detect) Parainfluenza 4 (PCR) Not Detected (Not Detect) RSV (PCR) Not Detected (Not Detect) Entero/Rhino (PCR) Not Detected (Not Detect) - Impressions Impressions Cervical Spine CT 08/06/18 14:30 IMPRESSION: Postsurgical changes compatible with posterior fusion at C2-3 and at C6-7. Laminectomy at C4-5, new since previous exam. Suspected old discitis/osteomyelitis at C7-T1. No gross evidence for abscess. MRI, however, is a better modality for evaluation of the contents of the spinal canal and for evaluation of epidural abscess. D/ / 08/06/2018 20:32:26 Aleksandar Parada MD / ejssa Interpreting Provider: Aleksandar Parada MD Lumbar Spine CT 08/06/18 14:30 IMPRESSION: 1. No acute abnormality of the lumbar spine. 2. Partially imaged soft tissue swelling over the left sacrum similar to prior study and consistent with cellulitis. No underlying erosive osseous change to suggest osteomyelitis, although the sacrum and coccyx are incompletely imaged. 3. Mild spinal canal stenosis at L2-3 and L3-4 secondary to disc bulges. D/ / Aldair Ceballos / Aldair Ceballos Interpreting Provider: Aldair Ceballos Thoracic Spine CT 08/06/18 14:30 IMPRESSION: 1. New C7-T1 destructive endplate changes with surrounding vertebral body sclerosis consistent with chronic osteomyelitis. If there is clinical concern for acute osteomyelitis, MRI would be recommended for further evaluation. 2. No evidence of epidural abscess in the thoracic spine, however CT is insensitive to abnormalities within the spinal canal. D/ / Aldair Ceballos / Aldair Ceballos Interpreting Provider: Aldair Ceballos Exam - Constitutional Vitals: Temp Pulse Resp BP Pulse Ox 97.6 F 96 18 93/64 98 08/07/18 11:23 08/07/18 11:23 08/07/18 11:23 08/07/18 11:23 08/07/18 11:23 General appearance: cooperative, no acute distress, thin - Head Head exam: Present: atraumatic, normal inspection, normocephalic - Eye Eye exam: Present: EOMI, normal appearance, PERRL Pupils: Present: normal accommodation - ENT ENT exam: Present: mucous membranes moist - Neck Neck exam: Present: normal inspection - Respiratory Respiratory exam: Present: CTAB. Absent: rales, respiratory distress, rhonchi, wheezes - Cardiovascular Cardiovascular exam: Present: RRR, +S1, +S2 - GI/Abdominal GI/Abdominal exam: Present: normal bowel sounds, soft. Absent: distended, tenderness Additional comments: Colostomy noted to the left abdomen with formed brown stool noted in the collection bag. Willis catheter noted to be draining clear yellow urine. - Extremities Exam Extremities exam: Absent: joint swelling, normal inspection (Contractures and muscle atrophy noted to the BLE), pedal edema, tenderness Additional comments: Bilateral foot dressings C/D/I. - Neurological Exam Neurological exam: Present: alert, oriented X3. Absent: no focal deficits ( Diminished sensation and movement noted to the BLE.) - Psychiatric Psychiatric exam: Present: normal affect, normal mood - Skin Skin exam: Present: dry, intact, normal color, warm Consult Discharge Plan - Plan Referrals: Jayson Gutierrez, PAC [Primary Care Provider] -
--- NOTE | 2018-08-07 15:23 | Event Note ---
Date of Encounter: 08/07/18 Time of Encounter: 15:20 Discharge date 08/07/2018. Refer to discharge summary note started 08/05/2018 but completed 08/07/2018. DC held on 08/05/2018 per ID request. Actual date of encounter 08/07/2018.
--- NOTE | 2018-08-07 15:24 | Physician Discharge Referral ---
Extended[facility] Referral Info Provider in Charge after Transfer: PCP Institutional Level of Care: Skilled - Diagnosis (1) Osteomyelitis of coccyx Status: Acute (2) Pressure ulcer of sacral region, stage 4 Status: Chronic (3) Fever Status: Acute (4) Tachycardia Status: Acute (5) Hepatitis C Status: Chronic (6) Drug abuse, IV Status: Chronic (7) Abnormal urinalysis Status: Acute (8) Medical non-compliance Status: Acute - Transfer Medications Prescriptions: Meropenem [Merrem] 1,000 mg IVPB Q8HR #30 vial Tramadol HCl [Ultram] 50 mg PO Q8H PRN 10 Days #30 tablet PRN Reason: Pain Home Medications: Aspirin 81 mg PO DAILY tab.chew 12/30/17 [Rx] Albuterol Neb [Proventil Neb] 2.5 mg IH Q6H PRN 07/01/18 [History] Baclofen [Lioresal] 5 mg PO TID 07/01/18 [History] Doxycycline Hyclate [Vibramycin] 100 mg PO BID 07/01/18 [History] Famotidine [Heartburn Prevention] 20 mg PO Q12H 07/01/18 [History] Gabapentin [Neurontin] 400 mg PO TID 07/01/18 [History] Heparin 5,000 unit SQ Q8H 07/01/18 [History] Iron Polysaccharide Complex [Ferrex 150] 150 mg PO DAILY 07/01/18 [History] Nortriptyline [Pamelor] 25 mg PO HS 07/01/18 [History] Valproic Acid (As Sodium Salt) [Valproic Acid] 500 mg PO Q8H 07/01/18 [History] Ascorbic Acid [Vitamin C] 500 mg PO BID 07/28/18 [History] Budesonide/Formoterol 80/4.5 [Symbicort 80/4.5] 2 puff IH BID 07/28/18 [History ] Lactulose [Enulose] 20 gm PO TIDWM 07/28/18 [History] Lidocaine [Aspercreme] 1 each TP DAILY 07/28/18 [History] Melatonin [Melatin] 3 mg PO HS 07/28/18 [History] Multivitamin [Multivitamins] 1 each PO DAILY 07/28/18 [History] OLANZapine [Zyprexa] 10 mg PO QPM 07/28/18 [History] Zinc Sulfate 220 mg PO BID 07/28/18 [History] 0.9 % Sodium Chloride [Monoject Prefill] 1 appl IV BID 08/04/18 [History] Acetaminophen [Tylenol] 650 mg PO Q8H PRN 08/04/18 [History] Patient Taking Own Medication [Patient Taking Own Medication] 30 ml IR Q12H PRN 08/04/18 [History] Meropenem [Merrem] 1,000 mg IVPB Q8HR #30 vial 08/07/18 [Rx] Tramadol HCl [Ultram] 50 mg PO Q8H PRN 10 Days #30 tablet 08/07/18 [Rx] Allergies/Adverse Reactions: 3 Allergy/AdvReac Type Severity Reaction Status Date / Time No Known Allergies Allergy Verified 08/02/18 22:22 - Respiratory Orders Smoking Cessation: Smoking cessation has been advised. For more information, call the [place] Tobacco Quit Line at 6-381-PPMP-NOW. - Advance Directives Code Status: Full Code - Mobility Orders Other - Rehabiliation Orders Rehab Orders: Evaluation for Physical Therapy, Evaluation for Occupational Therapy - Diet Orders Regular CERTIFICATION: I certify that the transfer of the above named patient to an Extended Care Facility is necessary for the continuing treatment of the diagnosis listed. The above information is true and accurate reflection of patient's current condition. Confidential - Redisclosure prohibited without a patient's written consent.
[2018-08-07] MEDS: OLANZapine 10 MG TAB.RAPDIS PO SCH (17:15)
[2018-08-07] MEDS ORDERED: Aminoglycoside Consult 1 EACH MC ONE (17:36)
[2018-08-07] MEDS ORDERED: Doxycycline 100 MG CAPSULE PO SCH (21:00)
== END 2018-08-07 17:37 | DRG 720 ==
LOC: 3ANU 22:12 → EMEROOARM 22:12 → SUATTDRO 08-03 01:10 → 3ANU 08-03 02:45
PROVIDERS: ADMIT Internal Medicine; ATTEND Internal Medicine

== ENCOUNTER 2018-09-09 04:41 | Inpatient (IN) ==
[2018-09-09 05:30] LABS: Basophils % 0.2 %; Eosinophils # 0.6 K/mcL (0.0-0.6); Eosinophils % 4.8 %; Hematocrit 31.4 % (37.5-50.1); Hemoglobin 9.9 g/dL (12.9-16.9); Immature Granulocytes % 0.5 % (0-4); Lymphocytes # 2.4 K/mcL (0.6-4.6); Lymphocytes % 19.7 %; Mean Corpuscular HGB Conc 31.5 g/dL (31.6-35.5); Mean Corpuscular Hemoglobin 26.3 pg (28.0-33.3); Mean Corpuscular Volume 83.5 fL (83.0-100.0); Mean Platelet Volume 8.7 fL (9.4-12.4); Monocytes # 1.2 K/mcL (0.0-1.3); Monocytes % 9.6 %; Platelet Count 351 K/mcL (140-400); Red Blood Count 3.76 M/mcL (4.19-5.50); Red Cell Distribution Width 15.9 % (11.5-14.5); Segmented Neutrophils % 65.2 %
[2018-09-09 05:37] LABS: INR 1.2; Prothrombin Time 13.1 Seconds (9.4-12.1)
[2018-09-09 05:40] LABS: Activated Partial Thrombo Time 32.6 Seconds (26.0-36.0)
--- NOTE | 2018-09-09 05:47 | Emergency Department Note ---
Disposition Clinical Impression: Osteomyelitis of sacrum Fever Qualifiers: Fever type: unspecified Qualified Code(s): R50.9 - Fever, unspecified Disposition: Admitted As Inpatient Condition: Serious Fever HPI - General Chief Complaint: ED Fever Stated Complaint: poss sepsis Time Seen by Provider: 09/09/18 04:44 Source: patient, EMS, other ([facility] document) Mode of arrival: EMS Limitations: other (dementia, difficult to understand) Nursing Notes Reviewed: Yes Vital Signs Reviewed: Yes (BP historically low) - History of Present Illness Pt Subjective Complaint: other ("I rolled off the bed so they made me come in here." Fever and concerns for sepsis per [facility] report) Onset (ago): hour(s) Maximum Temperature Reported: 99 F Temperature Source: oral Context: sick contacts, recent antibiotic use (on Doxy for osteomyelitis of sacrum second to sacral decubitus ulcers) Associated symptoms: Denies: chills, rigors, myalgias, headache, rhinorrhea, nasal congestion, sore throat, stiff neck, cough, chest pain, dyspnea, abdominal pain, nausea, vomiting, diarrhea, dysuria, rash, altered mental status, night sweats, weight loss, other Improves with: nothing Worsens with: nothing Treatments prior to arrival fever: none - Related Data Home Medications Medication Instructions Recorded Confirmed RX: Albuterol Neb [Proventil Neb] 2.5 mg IH Q6H PRN 07/01/18 09/09/18 RX: Baclofen [Lioresal] 5 mg PO TID 07/01/18 09/09/18 RX: Doxycycline Hyclate 100 mg PO BID 07/01/18 09/09/18 [Vibramycin] RX: Famotidine [Heartburn 20 mg PO Q12H 07/01/18 09/09/18 Prevention] RX: Gabapentin [Neurontin] 600 mg PO TID 07/01/18 09/09/18 RX: Heparin 5,000 unit SQ Q8H 07/01/18 09/09/18 RX: Iron Polysaccharide Complex 150 mg PO DAILY 07/01/18 09/09/18 [Ferrex 150] RX: Nortriptyline [Pamelor] 25 mg PO HS 07/01/18 09/09/18 RX: Valproic Acid (As Sodium Salt) 500 mg PO Q8H 07/01/18 09/09/18 [Valproic Acid] RX: Ascorbic Acid [Vitamin C] 500 mg PO BID 07/28/18 09/09/18 RX: Budesonide/Formoterol 80/4.5 2 puff IH BID 07/28/18 09/09/18 [Symbicort 80/4.5] RX: Lactulose [Enulose] 20 gm PO TIDWM 07/28/18 09/09/18 RX: Lidocaine [Aspercreme] 1 each TP DAILY 07/28/18 09/09/18 RX: Melatonin [Melatin] 3 mg PO HS 07/28/18 09/09/18 RX: Multivitamin [Multivitamins] 1 each PO DAILY 07/28/18 09/09/18 RX: OLANZapine [Zyprexa] 10 mg PO QPM 07/28/18 09/09/18 RX: Zinc Sulfate 220 mg PO BID 07/28/18 09/09/18 RX: Acetaminophen [Tylenol] 650 mg PO Q8H PRN 08/04/18 09/09/18 RX: Patient Taking Own Medication 30 ml IR Q12H PRN 08/04/18 09/09/18 Amino Acids/Protein Hydrolys 30 ml PO BID 09/09/18 09/09/18 [Pro-Stat Awc Liquid] Buspirone HCl [Buspar] 5 mg PO TID 09/09/18 09/09/18 Previous Rx's Medication Instructions Recorded RX: Aspirin 81 mg PO DAILY tab.chew 12/30/17 RX: Tramadol HCl [Ultram] 50 mg PO Q8H PRN 10 Days #30 tablet 08/07/18 Allergies Allergy/AdvReac Type Severity Reaction Status Date / Time No Known Allergies Allergy Verified 08/02/18 22:22 All systems ED: reviewed and negative except as stated. Review of Systems: As Per HPI Constitutional: Denies: fever, chills, weakness Eyes: Denies: vision change ENT ED: Denies: ear pain, throat pain, congestion, dysphagia Cardiovascular: Denies: chest pain, palpitations, dyspnea on exertion Respiratory: Denies: cough, dyspnea, wheezes Gastrointestinal: Denies: abdominal pain, nausea, vomiting, diarrhea Genitourinary: Denies: dysuria, hematuria Musculoskeletal: Denies: back pain, neck pain, joint swelling Neurological: Denies: headache, weakness, vertigo Endocrine: Reports: fatigue. Denies: heat or cold intolerance, polydipsia, polyuria Hematological/Lymphatic: Denies: easy bleeding, easy bruising Fever PMH - Past Medical History Medical history: Reports: COPD, GERD, hepatitis, other Reports: Paraplegia/Quadriplegia Surgical history: Reports: non-contributory Surgical history: Reports: orthopedic, other Psychiatric history: Reports: bipolar, schizophrenia - Social History Smoking Status: Current every day smoker Alcohol use: Reports: none Drug use: Reports: none Physical Exam - General Limitations: no limitations General appearance: alert, in no apparent distress - Head Head exam: atraumatic, normocephalic, normal inspection - Eye Eye exam: Present: normal appearance. Absent: scleral icterus, conjunctival injection, periorbital swelling - ENT ENT exam: mucous membranes dry - Neck Neck exam: Present: normal inspection, full ROM, trachea midline. Absent: tenderness, meningismus - Expanded Neck Exam Neck exam focused ED: Absent: midline tenderness, paraspinal tenderness, tenderness (other), anterior neck swelling - Chest Chest inspection: Present: normal inspection - Respiratory Respiratory exam: Present: normal lung sounds bilaterally. Absent: respiratory distress, wheezes, stridor, accessory muscle use, prolonged expiratory phase - Cardiovascular Cardiovascular exam: Present: normal rhythm, tachycardia - Abdominal Exam Abdominal exam: Present: soft, Non-Tender, scar, other (colostomy). Absent: distention, guarding, rebound, rigidity, mass, pulsatile mass - Extremities Exam Extremities exam: Present: normal capillary refill, other (ulcer on left anterior knee). Absent: tenderness, joint swelling - Expanded Lower Extremity Exam Hip/Pelvis exam: Present: erythema (lateral left - stage three decubitus ulcer), pelvis stable. Absent: normal inspection, tenderness, swelling, deformity, dislocation, external rotation, internal rotation, shortening Upper leg exam: Absent: tenderness Knee exam: Present: other (left anterior ulceration - healing). Absent: tenderness, erythema Lower leg exam: Present: normal inspection. Absent: tenderness Ankle exam: Present: normal inspection. Absent: tenderness Foot/toe exam: Present: normal inspection. Absent: tenderness Neurovascular/Tendon exam: Present: normal capillary refill. Absent: pulse deficit, sensory deficit, pallor, normal 2-point discrimination, normal fine/light touch, foot drop, significant pain with passive ROM of distal joint Gait: not tested/not observed - Back Exam Back exam: Absent: normal inspection, paraspinal tenderness, vertebral tenderness, rashes - Neurological Exam Neurological exam: Present: alert, oriented X3 - Psychiatric Psychiatric exam: Present: normal mood, flat affect - Skin Skin exam: Present: warm, dry, intact, normal color - Expanded Skin Exam Type of lesion: Present: other (decubitus ulcers - stage 3 - left sacrum, left hip, left perineum) Distribution: genitals, LLE Description: Present: erythematous, swelling, discharge. Absent: tenderness Course Course Narrative: Patient was sent from [facility] for evaluation of fever and concern for sepsis. Patient has history of lower extremity paresis and weakness, status post epidural abscess and meningitis. He has had recurrent sacral decubitus ulcers and now osteomyelitis of the sacrum, thus was sent to [facility] for diverting colostomy earlier this year. He also has an indwelling Willis. He is a very poor historian and at times is difficult to understand. He states that he does not have dementia or Alzheimer's as it states on his [facility] record. He states that he does not have a wound on his backside that it is "just a little red". He is unable to describe why he has his multiple medical problems. On exam he is A&Ox3, no complaints of pain. He has three large decubitus ulcers - one on left buttock, one in perineum and one on lateral left hip. All are draining purulent foul smelling fluid. Mild erythema surrounding all as well. Labs, EKG, cultures and fluids ordered. Case discussed with Dr. Packer. He has had face to face time with the patient and agrees with the assessment and plan. Case discussed with Jonatan Tao CNP at shift change. She will take over care of t his patient. Vital Signs Temperature 99.5 F 09/09/18 04:45 Pulse Rate 112 09/09/18 04:45 Respiratory Rate 16 09/09/18 04:45 Blood Pressure 98/61 09/09/18 04:45 O2 Sat by Pulse Oximetry 95 09/09/18 04:45 Temperature 97.9 F 09/09/18 19:24 Pulse Rate 88 09/09/18 19:24 Respiratory Rate 14 09/09/18 19:24 Blood Pressure 103/61 09/09/18 19:24 O2 Sat by Pulse Oximetry 95 09/09/18 19:24 Oxygen Delivery Oxygen Delivery Room Air Fever - Lab Data Result diagrams: 09/09/18 05:13 09/09/18 05:13 Lab Results 09/09/18 09/09/18 09/09/18 Range/Units 05:13 05:13 05:13 WBC 12.3 H (4.3-11.1) K/mcL RBC 3.76 L (4.19-5.50) M/mcL Hgb 9.9 L (12.9-16.9) g/dL Hct 31.4 L (37.5-50.1) % MCV 83.5 (83.0-100.0) fL MCH 26.3 L (28.0-33.3) pg MCHC 31.5 L (31.6-35.5) g/dL RDW 15.9 H (11.5-14.5) % Plt Count 351 (140-400) K/mcL MPV 8.7 L (9.4-12.4) fL Immature Gran % 0.5 (0-4) % Seg Neutrophils % 65.2 % Lymphocytes % 19.7 % Monocytes % 9.6 % Eosinophils % 4.8 % Basophils % 0.2 % Neutrophils # 8.0 (1.6-8.9) K/mcL Lymphocytes # 2.4 (0.6-4.6) K/mcL Monocytes # 1.2 (0.0-1.3) K/mcL Eosinophils # 0.6 (0.0-0.6) K/mcL Basophils # 0.0 (0.0-0.2) K/mcL PT 13.1 H (9.4-12.1) Seconds INR 1.2 APTT 32.6 (26.0-36.0) Seconds Sodium 134 L (136-145) mEq/L Potassium 4.1 (3.5-5.1) mEq/L Chloride 100 (98-107) mEq/L Carbon Dioxide 27 (23-29) mEq/L BUN 20 (6-20) mg/dL Creatinine 0.74 (0.70-1.30) mg/dL Est GFR ( Amer) > 60 (> 60) Est GFR (Non-Af Amer) > 60 (> 60) BUN/Creatinine Ratio 27 H (6-26) Glucose 103 (70-105) mg/dL Calculated Osmolality 281 (280-300) Lactic Acid (0.5-2.2) mmol/L Calcium 9.6 (8.6-10.3) mg/dL Phosphorus 3.1 (2.7-4.5) mg/dL Magnesium 1.8 (1.6-2.6) mg/dL Total Bilirubin 0.3 (0.3-1.0) mg/dL Direct Bilirubin 0.1 (0.0-0.2) mg/dL Indirect Bilirubin 0.2 (0.0-1.2) mg/dL AST 12 L (13-39) Units/L ALT 8 (7-52) Units/L Alkaline Phosphatase 74 (34-104) Units/L Troponin I < 0.03 (< 0.04) ng/mL Serum Total Protein 6.9 (6.4-8.9) g/dL Albumin 3.0 L (3.5-5.7) g/dL Globulin 3.9 H (2.4-3.5) g/dL Albumin/Globulin Ratio 0.8 L (1.1-2.2) Urine Color (Yellow) Urine Clarity (Clear) Urine pH (5.0-8.0) pH Units Ur Specific [place] (1.010-1.025) Urine Protein (Neg-Trace) mg/dL Urine Glucose (UA) (Normal) mg/dL Urine Ketones (Negative) mg/dL Urine Blood (Negative) Urine Nitrite (Negative) Urine Bilirubin (Negative) Urine Urobilinogen (Normal) mg/dL Ur Leukocyte Esterase (Negative) Urine Microscopic RBC (0-3) per hpf Urine Microscopic WBC (0-3) per hpf Ur Squamous Epith Cells (None-Few) per lpf Urine Bacteria (None-Few) per hpf Hyaline Casts (None-Few) per lpf Ur Culture Indicated? (NO) 09/09/18 09/09/18 Range/Units 05:13 05:35 WBC (4.3-11.1) K/mcL RBC (4.19-5.50) M/mcL Hgb (12.9-16.9) g/dL Hct (37.5-50.1) % MCV (83.0-100.0) fL MCH (28.0-33.3) pg MCHC (31.6-35.5) g/dL RDW (11.5-14.5) % Plt Count (140-400) K/mcL MPV (9.4-12.4) fL Immature Gran % (0-4) % Seg Neutrophils % % Lymphocytes % % Monocytes % % Eosinophils % % Basophils % % Neutrophils # (1.6-8.9) K/mcL Lymphocytes # (0.6-4.6) K/mcL Monocytes # (0.0-1.3) K/mcL Eosinophils # (0.0-0.6) K/mcL Basophils # (0.0-0.2) K/mcL PT (9.4-12.1) Seconds INR APTT (26.0-36.0) Seconds Sodium (136-145) mEq/L Potassium (3.5-5.1) mEq/L Chloride (98-107) mEq/L Carbon Dioxide (23-29) mEq/L BUN (6-20) mg/dL Creatinine (0.70-1.30) mg/dL Est GFR ( Amer) (> 60) Est GFR (Non-Af Amer) (> 60) BUN/Creatinine Ratio (6-26) Glucose (70-105) mg/dL Calculated Osmolality (280-300) Lactic Acid 1.4 (0.5-2.2) mmol/L Calcium (8.6-10.3) mg/dL Phosphorus (2.7-4.5) mg/dL Magnesium (1.6-2.6) mg/dL Total Bilirubin (0.3-1.0) mg/dL Direct Bilirubin (0.0-0.2) mg/dL Indirect Bilirubin (0.0-1.2) mg/dL AST (13-39) Units/L ALT (7-52) Units/L Alkaline Phosphatase (34-104) Units/L Troponin I (< 0.04) ng/mL Serum Total Protein (6.4-8.9) g/dL Albumin (3.5-5.7) g/dL Globulin (2.4-3.5) g/dL Albumin/Globulin Ratio (1.1-2.2) Urine Color Dark Yellow (Yellow) Urine Clarity Cloudy A (Clear) Urine pH 7.0 (5.0-8.0) pH Units Ur Specific [place] 1.028 H (1.010-1.025) Urine Protein 100 H (Neg-Trace) mg/dL Urine Glucose (UA) Normal (Normal) mg/dL Urine Ketones Trace H (Negative) mg/dL Urine Blood Small H (Negative) Urine Nitrite Positive A (Negative) Urine Bilirubin Negative (Negative) Urine Urobilinogen Normal (Normal) mg/dL Ur Leukocyte Esterase Large H (Negative) Urine Microscopic RBC 30-50 H (0-3) per hpf Urine Microscopic WBC TNTC H (0-3) per hpf Ur Squamous Epith Cells Moderate H (None-Few) per lpf Urine Bacteria Many H (None-Few) per hpf Hyaline Casts None Seen (None-Few) per lpf Ur Culture Indicated? YES A (NO) Attestation Statement - Attestation Attestation: I, Derek Packer MD, personally evaluated this patient and discussed their management with the midlevel provicer, PAC/DUST HANDLER. I reviewed the midlevel provider's note and agree with the documented findings, medical decision making, and plan of care. 52-year-old male sent from a local [facility] for possible sepsis. Patient developed a fever and generalized weakness tonight at the [facility]. He has a prior history of sepsis episodes. He has multiple infected sacral decubiti. He also has a chronic indwelling Willis catheter with chronic urinary infection. On examination patient is a well-developed well-nourished male in no acute distress. He is alert. No cyanosis or diaphoresis. Breath sounds are equal bilaterally. Heart regular with a mild tachycardia. Abdomen soft with present bowel sounds. Nontender to palpation. Labs reviewed. EKG shows sinus tachycardia with ventricular rate of 109. No acute ST segment elevation or depression. No arrhythmia or ectopy. Chest x-ray negative. The hospitalist, Dr. Abdi, was consulted and accepted admission of the patient.
[2018-09-09] MEDS: 0.9 % Sodium Chloride 1,000 ML IVC SCH ×4 (05:49→20:23)
[2018-09-09 05:52] LABS: Troponin I < 0.03 ng/mL (< 0.04)
[2018-09-09 05:54] LABS: Alanine Aminotransferase 8 Units/L (7-52); Albumin/Globulin Ratio 0.8 (1.1-2.2); Alkaline Phosphatase 74 Units/L (34-104); Aspartate Amino Transferase 12 Units/L (13-39); BUN/Creatinine Ratio 27 (6-26); Bilirubin,Direct 0.1 mg/dL (0.0-0.2); Bilirubin,Indirect 0.2 mg/dL (0.0-1.2); Bilirubin,Total 0.3 mg/dL (0.3-1.0); Blood Urea Nitrogen 20 mg/dL (6-20); Calcium 9.6 mg/dL (8.6-10.3); Carbon Dioxide 27 mEq/L (23-29); Chloride 100 mEq/L (98-107); Globulin 3.9 g/dL (2.4-3.5); Glucose 103 mg/dL (70-105); Magnesium 1.8 mg/dL (1.6-2.6); Osmolality,Calculated 281 (280-300); Phosphorous 3.1 mg/dL (2.7-4.5); Potassium 4.1 mEq/L (3.5-5.1); Sodium 134 mEq/L (136-145); Total Protein 6.9 g/dL (6.4-8.9); eGFR For Non-African Americans > 60 (> 60)
[2018-09-09 05:57] LABS: Bilirubin,Urine Negative (Negative); Blood,Urine Small (Negative); Clarity,Urine Cloudy (Clear); Color,Urine Dark Yellow (Yellow); Glucose,Urine (UA) Normal (Normal); Ketones,Urine Trace mg/dL (Negative); Leukocyte Esterase,Urine Large (Negative); Nitrite,Urine Positive (Negative); Protein,Urine 100 mg/dL (Neg-Trace); Specific Gravity,Urine 1.028 (1.010-1.025); Urobilinogen,Urine Normal (Normal)
[2018-09-09 05:58] LABS: Bacteria,Urine Many per hpf (None-Few); Hyaline Casts,Urine None Seen per lpf (None-Few); RBC,Urine 30-50 per hpf (0-3); Squamous Epithelial Cell,Urine Moderate per lpf (None-Few); WBC,Urine TNTC per hpf (0-3)
--- NOTE | 2018-09-09 07:34 | Emergency Department Note ---
Disposition Clinical Impression: Osteomyelitis of sacrum Fever Qualifiers: Fever type: unspecified Qualified Code(s): R50.9 - Fever, unspecified Disposition: Admitted As Inpatient Condition: Serious Fever HPI - General Chief Complaint: ED Fever Stated Complaint: poss sepsis Time Seen by Provider: 09/09/18 04:44 Source: patient, EMS, other ([facility] document) Mode of arrival: EMS Limitations: no limitations - History of Present Illness Context: sick contacts, recent antibiotic use (on Doxy for osteomyelitis of sacrum second to sacral decubitus ulcers) Associated symptoms: Denies: chills, rigors, myalgias, headache, rhinorrhea, nasal congestion, sore throat, stiff neck, cough, chest pain, dyspnea, abdominal pain, nausea, vomiting, diarrhea, dysuria, rash, altered mental status, night sweats, weight loss, other Treatments prior to arrival fever: none - Related Data Home Medications Medication Instructions Recorded Confirmed Albuterol Neb [Proventil Neb] 2.5 mg IH Q6H PRN 07/01/18 08/04/18 Baclofen [Lioresal] 5 mg PO TID 07/01/18 08/04/18 Doxycycline Hyclate [Vibramycin] 100 mg PO BID 07/01/18 08/04/18 Famotidine [Heartburn Prevention] 20 mg PO Q12H 07/01/18 08/04/18 Gabapentin [Neurontin] 400 mg PO TID 07/01/18 08/04/18 Heparin 5,000 unit SQ Q8H 07/01/18 08/04/18 Iron Polysaccharide Complex 150 mg PO DAILY 07/01/18 08/04/18 [Ferrex 150] Nortriptyline [Pamelor] 25 mg PO HS 07/01/18 08/04/18 Valproic Acid (As Sodium Salt) 500 mg PO Q8H 07/01/18 08/04/18 [Valproic Acid] Ascorbic Acid [Vitamin C] 500 mg PO BID 07/28/18 08/04/18 Budesonide/Formoterol 80/4.5 2 puff IH BID 07/28/18 08/04/18 [Symbicort 80/4.5] Lactulose [Enulose] 20 gm PO TIDWM 07/28/18 08/04/18 Lidocaine [Aspercreme] 1 each TP DAILY 07/28/18 08/04/18 Melatonin [Melatin] 3 mg PO HS 07/28/18 08/04/18 Multivitamin [Multivitamins] 1 each PO DAILY 07/28/18 08/04/18 OLANZapine [Zyprexa] 10 mg PO QPM 07/28/18 08/04/18 Zinc Sulfate 220 mg PO BID 07/28/18 08/04/18 0.9 % Sodium Chloride [Monoject 1 appl IV BID 08/04/18 08/04/18 Prefill] Acetaminophen [Tylenol] 650 mg PO Q8H PRN 08/04/18 08/04/18 Patient Taking Own Medication 30 ml IR Q12H PRN 08/04/18 08/04/18 Previous Rx's Medication Instructions Recorded Aspirin 81 mg PO DAILY tab.chew 12/30/17 Meropenem [Merrem] 1,000 mg IVPB Q8HR #30 vial 08/07/18 Tramadol HCl [Ultram] 50 mg PO Q8H PRN 10 Days #30 tablet 08/07/18 Allergies Allergy/AdvReac Type Severity Reaction Status Date / Time No Known Allergies Allergy Verified 08/02/18 22:22 Constitutional: Denies: fever, chills, weakness Eyes: Denies: vision change ENT ED: Denies: ear pain, throat pain, congestion, dysphagia Cardiovascular: Denies: chest pain, palpitations, dyspnea on exertion Respiratory: Denies: cough, dyspnea, wheezes Gastrointestinal: Denies: abdominal pain, nausea, vomiting, diarrhea Genitourinary: Denies: dysuria, hematuria Musculoskeletal: Denies: back pain, neck pain, joint swelling Neurological: Denies: headache, weakness, vertigo Endocrine: Reports: fatigue. Denies: heat or cold intolerance, polydipsia, polyuria Hematological/Lymphatic: Denies: easy bleeding, easy bruising Fever PMH - Past Medical History Medical history: Reports: COPD, GERD, hepatitis, other Reports: Paraplegia/Quadriplegia Surgical history: Reports: non-contributory Surgical history: Reports: orthopedic, other Psychiatric history: Reports: bipolar, schizophrenia - Social History Smoking Status: Current every day smoker Alcohol use: Reports: none Drug use: Reports: none Physical Exam - General Limitations: no limitations General appearance: alert, in no apparent distress Course Vital Signs Temperature 99.5 F 09/09/18 04:45 Pulse Rate 112 09/09/18 04:45 Respiratory Rate 16 09/09/18 04:45 Blood Pressure 98/61 09/09/18 04:45 O2 Sat by Pulse Oximetry 95 09/09/18 04:45 Temperature 99.5 F 09/09/18 04:45 Pulse Rate 95 09/09/18 06:32 Respiratory Rate 16 09/09/18 06:32 Blood Pressure 103/48 09/09/18 06:32 O2 Sat by Pulse Oximetry 98 09/09/18 06:32 Oxygen Delivery Oxygen Delivery Room Air Fever - MDM Narrative Medical decision making narrative: Received report from Kim REYNAGA. 52-year-old male sent from [facility] for evaluation of fever and possible sepsis. Patient has current osteomyelitis and open wound. Patient is on doxycycline. Patient was found to fever and gene ralized weakness in [facility]. History of epidural abscess and meningitis, IV drug abuse. Patient's temperature was 99.5, Pulse > 100 in ER, Blood pressure 90s/60s, open wound with pus drainage in sacrum area. white cell 12 elevated, negative lactic acid, positive Nitrite. Pt is given IV fluids and vancomycin. Spoke with hospitalist Dr. Abdi. pt is accepted for IV antibiotics. - Lab Data Result diagrams: 09/09/18 05:13 09/09/18 05:13 Lab Results 09/09/18 09/09/18 09/09/18 Range/Units 05:13 05:13 05:13 WBC 12.3 H (4.3-11.1) K/mcL RBC 3.76 L (4.19-5.50) M/mcL Hgb 9.9 L (12.9-16.9) g/dL Hct 31.4 L (37.5-50.1) % MCV 83.5 (83.0-100.0) fL MCH 26.3 L (28.0-33.3) pg MCHC 31.5 L (31.6-35.5) g/dL RDW 15.9 H (11.5-14.5) % Plt Count 351 (140-400) K/mcL MPV 8.7 L (9.4-12.4) fL Immature Gran % 0.5 (0-4) % Seg Neutrophils % 65.2 % Lymphocytes % 19.7 % Monocytes % 9.6 % Eosinophils % 4.8 % Basophils % 0.2 % Neutrophils # 8.0 (1.6-8.9) K/mcL Lymphocytes # 2.4 (0.6-4.6) K/mcL Monocytes # 1.2 (0.0-1.3) K/mcL Eosinophils # 0.6 (0.0-0.6) K/mcL Basophils # 0.0 (0.0-0.2) K/mcL PT 13.1 H (9.4-12.1) Seconds INR 1.2 APTT 32.6 (26.0-36.0) Seconds Sodium 134 L (136-145) mEq/L Potassium 4.1 (3.5-5.1) mEq/L Chloride 100 (98-107) mEq/L Carbon Dioxide 27 (23-29) mEq/L BUN 20 (6-20) mg/dL Creatinine 0.74 (0.70-1.30) mg/dL Est GFR ( Amer) > 60 (> 60) Est GFR (Non-Af Amer) > 60 (> 60) BUN/Creatinine Ratio 27 H (6-26) Glucose 103 (70-105) mg/dL Calculated Osmolality 281 (280-300) Lactic Acid (0.5-2.2) mmol/L Calcium 9.6 (8.6-10.3) mg/dL Phosphorus 3.1 (2.7-4.5) mg/dL Magnesium 1.8 (1.6-2.6) mg/dL Total Bilirubin 0.3 (0.3-1.0) mg/dL Direct Bilirubin 0.1 (0.0-0.2) mg/dL Indirect Bilirubin 0.2 (0.0-1.2) mg/dL AST 12 L (13-39) Units/L ALT 8 (7-52) Units/L Alkaline Phosphatase 74 (34-104) Units/L Troponin I < 0.03 (< 0.04) ng/mL Serum Total Protein 6.9 (6.4-8.9) g/dL Albumin 3.0 L (3.5-5.7) g/dL Globulin 3.9 H (2.4-3.5) g/dL Albumin/Globulin Ratio 0.8 L (1.1-2.2) Urine Color (Yellow) Urine Clarity (Clear) Urine pH (5.0-8.0) pH Units Ur Specific [place] (1.010-1.025) Urine Protein (Neg-Trace) mg/dL Urine Glucose (UA) (Normal) mg/dL Urine Ketones (Negative) mg/dL Urine Blood (Negative) Urine Nitrite (Negative) Urine Bilirubin (Negative) Urine Urobilinogen (Normal) mg/dL Ur Leukocyte Esterase (Negative) Urine Microscopic RBC (0-3) per hpf Urine Microscopic WBC (0-3) per hpf Ur Squamous Epith Cells (None-Few) per lpf Urine Bacteria (None-Few) per hpf Hyaline Casts (None-Few) per lpf Ur Culture Indicated? (NO) 09/09/18 09/09/18 Range/Units 05:13 05:35 WBC (4.3-11.1) K/mcL RBC (4.19-5.50) M/mcL Hgb (12.9-16.9) g/dL Hct (37.5-50.1) % MCV (83.0-100.0) fL MCH (28.0-33.3) pg MCHC (31.6-35.5) g/dL RDW (11.5-14.5) % Plt Count (140-400) K/mcL MPV (9.4-12.4) fL Immature Gran % (0-4) % Seg Neutrophils % % Lymphocytes % % Monocytes % % Eosinophils % % Basophils % % Neutrophils # (1.6-8.9) K/mcL Lymphocytes # (0.6-4.6) K/mcL Monocytes # (0.0-1.3) K/mcL Eosinophils # (0.0-0.6) K/mcL Basophils # (0.0-0.2) K/mcL PT (9.4-12.1) Seconds INR APTT (26.0-36.0) Seconds Sodium (136-145) mEq/L Potassium (3.5-5.1) mEq/L Chloride (98-107) mEq/L Carbon Dioxide (23-29) mEq/L BUN (6-20) mg/dL Creatinine (0.70-1.30) mg/dL Est GFR ( Amer) (> 60) Est GFR (Non-Af Amer) (> 60) BUN/Creatinine Ratio (6-26) Glucose (70-105) mg/dL Calculated Osmolality (280-300) Lactic Acid 1.4 (0.5-2.2) mmol/L Calcium (8.6-10.3) mg/dL Phosphorus (2.7-4.5) mg/dL Magnesium (1.6-2.6) mg/dL Total Bilirubin (0.3-1.0) mg/dL Direct Bilirubin (0.0-0.2) mg/dL Indirect Bilirubin (0.0-1.2) mg/dL AST (13-39) Units/L ALT (7-52) Units/L Alkaline Phosphatase (34-104) Units/L Troponin I (< 0.04) ng/mL Serum Total Protein (6.4-8.9) g/dL Albumin (3.5-5.7) g/dL Globulin (2.4-3.5) g/dL Albumin/Globulin Ratio (1.1-2.2) Urine Color Dark Yellow (Yellow) Urine Clarity Cloudy A (Clear) Urine pH 7.0 (5.0-8.0) pH Units Ur Specific [place] 1.028 H (1.010-1.025) Urine Protein 100 H (Neg-Trace) mg/dL Urine Glucose (UA) Normal (Normal) mg/dL Urine Ketones Trace H (Negative) mg/dL Urine Blood Small H (Negative) Urine Nitrite Positive A (Negative) Urine Bilirubin Negative (Negative) Urine Urobilinogen Normal (Normal) mg/dL Ur Leukocyte Esterase Large H (Negative) Urine Microscopic RBC 30-50 H (0-3) per hpf Urine Microscopic WBC TNTC H (0-3) per hpf Ur Squamous Epith Cells Moderate H (None-Few) per lpf Urine Bacteria Many H (None-Few) per hpf Hyaline Casts None Seen (None-Few) per lpf Ur Culture Indicated? YES A (NO)
[2018-09-09] MEDS ORDERED: Naloxone 0.4 MG/ML INJ IVP PRN (08:24)
--- NOTE | 2018-09-09 08:27 | Internal Med History&Physical ---
Date of Encounter: 09/09/18 Time of Encounter: 08:27 Internal Medicine - H&P: HPI Chief complaint: Fever History of present illness: Mr. Carrasco is a 52 year old male with history of sacral decubitus ulcers and now osteomyelitis of the sacrum, lower extremity paresis and weakness, status post epidural abscess and meningitis that presented for evaluation of fever and possible sepsis. He has diverting colostomy and indwelling Willis. The patient is sleepy and most of the history was obtained from medical records Past Med Surg Social Fam HX - Past Medical History Medical history: COPD, GERD, hepatitis, other Additional medical history: spinal stenosis, anemia, encephalopathy, GI hemorrhage,MRSA, osteomyelitis, pressure ulcer Psychiatric history: bipolar, schizophrenia - Past Surgical History Surgical History: non-contributory Additional surgical history: back/spine surgery, evacuation of epidural abscess, I&D, C5-T1 laminectomy December 2017 - Social History Smoking Status: Current every day smoker Smokeless Tobacco Status: No Alcohol use: none Drug use: none - Family History Father Living Status: Hx Family Cardiac Disorders: Yes ([place]) Mother Living Status: Hx Family Cancer: Yes Internal Medicine - H&P: Meds RX: Aspirin 81 mg PO DAILY tab.chew 12/30/17 [Rx] RX: Albuterol Neb [Proventil Neb] 2.5 mg IH Q6H PRN 07/01/18 [History] RX: Baclofen [Lioresal] 5 mg PO TID 07/01/18 [History] RX: Doxycycline Hyclate [Vibramycin] 100 mg PO BID 07/01/18 [History] RX: Famotidine [Heartburn Prevention] 20 mg PO Q12H 07/01/18 [History] RX: Gabapentin [Neurontin] 600 mg PO TID 07/01/18 [History] RX: Heparin 5,000 unit SQ Q8H 07/01/18 [History] RX: Iron Polysaccharide Complex [Ferrex 150] 150 mg PO DAILY 07/01/18 [History] RX: Nortriptyline [Pamelor] 25 mg PO HS 07/01/18 [History] RX: Valproic Acid (As Sodium Salt) [Valproic Acid] 500 mg PO Q8H 07/01/18 [History] RX: Ascorbic Acid [Vitamin C] 500 mg PO BID 07/28/18 [History] RX: Budesonide/Formoterol 80/4.5 [Symbicort 80/4.5] 2 puff IH BID 07/28/18 [History] RX: Lactulose [Enulose] 20 gm PO TIDWM 07/28/18 [History] RX: Lidocaine [Aspercreme] 1 each TP DAILY 07/28/18 [History] RX: Melatonin [Melatin] 3 mg PO HS 07/28/18 [History] RX: Multivitamin [Multivitamins] 1 each PO DAILY 07/28/18 [History] RX: OLANZapine [Zyprexa] 10 mg PO QPM 07/28/18 [History] RX: Zinc Sulfate 220 mg PO BID 07/28/18 [History] RX: Acetaminophen [Tylenol] 650 mg PO Q8H PRN 08/04/18 [History] RX: Patient Taking Own Medication 30 ml IR Q12H PRN 08/04/18 [History] RX: Tramadol HCl [Ultram] 50 mg PO Q8H PRN 10 Days #30 tablet 08/07/18 [Rx] RX: Amino Acids/Protein Hydrolys [Pro-Stat Awc Liquid] 30 ml PO BID 09/09/18 [History] RX: Buspirone HCl [Buspar] 5 mg PO TID 09/09/18 [History] Ertapenem [INVanz] 1,000 mg IVPB DAILY 14 Days #14 vial 09/11/18 [Rx] Allergy/AdvReac Type Severity Reaction Status Date / Time No Known Allergies Allergy Verified 08/02/18 22:22 ROS unobtainable: due to mental status All Systems PM: A 10-system review of systems was performed and is negative for pertinent findings except as documented above in the HPI. - Constitutional Vitals: Temp Pulse Resp BP Pulse Ox 99.5 F 95 16 121/58 98 09/09/18 04:45 09/09/18 06:32 09/09/18 08:00 09/09/18 08:00 09/09/18 06:32 General appearance: Present: A&O X 3 Exam: as below - Head Head exam: Present: atraumatic, normocephalic - Neck Neck exam general surgery: Present: supple, trachea midline. Absent: lymphadenopathy - Respiratory Respiratory exam: Present: CTAB. Absent: accessory muscle use, rales, rhonchi, wheezes - Cardiovascular Cardiovascular exam: Present: RRR, +S1, +S2. Absent: diastolic murmur, gallop, rubs, systolic murmur - Extremities Exam Extremities exam: Present: warm, radial pulses palpable and symmetrical. Absent: calf tenderness, cyanotic, pedal edema Internal Med - H&P Results - Labs CBC & Chem 7: 09/10/18 03:45 09/10/18 03:45 Labs: Short CBC 09/09/18 Range/Units 05:13 WBC 12.3 H (4.3-11.1) K/mcL Hgb 9.9 L (12.9-16.9) g/dL Hct 31.4 L (37.5-50.1) % Plt Count 351 (140-400) K/mcL Neutrophils # 8.0 (1.6-8.9) K/mcL BMP 09/09/18 05:13 Sodium 134 L Potassium 4.1 Chloride 100 Carbon Dioxide 27 BUN 20 Creatinine 0.74 Glucose 103 Calcium 9.6 Cardiac Enzymes 09/09/18 Range/Units 05:13 Troponin I < 0.03 (< 0.04) ng/mL Liver Function 09/09/18 Range/Units 05:13 Total Bilirubin 0.3 (0.3-1.0) mg/dL Direct Bilirubin 0.1 (0.0-0.2) mg/dL AST 12 L (13-39) Units/L ALT 8 (7-52) Units/L Alkaline Phosphatase 74 (34-104) Units/L Albumin 3.0 L (3.5-5.7) g/dL Urine 09/09/18 Range/Units 05:35 Urine Color Dark Yellow (Yellow) Urine Clarity Cloudy A (Clear) Urine pH 7.0 (5.0-8.0) pH Units Ur Specific [place] 1.028 H (1.010-1.025) Urine Protein 100 H (Neg-Trace) mg/dL Urine Glucose (UA) Normal (Normal) mg/dL - Impressions ITS Impressions Chest X-Ray 09/09/18 05:11 IMPRESSION: No acute process. D/ / Catarina Gerardo MD / Catarina Gerardo MD Interpreting Provider: Catarina Gerardo MD - Assessment and plan (1) Sepsis Status: Resolved Assessment and plan: ASSESSMENT: - Most likely 2/2 Decubitus, also UA is suggestive of UTI - We will continue ABs, and urine culture blood culture and adjust - CBCD, BMP in AM - Tylenol 650 mg PO q 4-6 hr PRN pain or fever -Protonix 40 mg IV QD -Heparin 5000 U SQ BID Qualifiers: Sepsis type: sepsis due to unspecified organism Qualified Code(s): A41.9 - Sepsis, unspecified organism (2) COPD (chronic obstructive pulmonary disease) Status: Chronic Assessment and plan: We will continue home meds and start patient on DuoNeb when necessary Qualifiers: COPD type: emphysema Emphysema type: unspecified Qualified Code(s): J43.9 - Emphysema, unspecified (3) Hepatitis C Status: Chronic Qualifiers: Viral hepatitis chronicity: unspecified Hepatic coma status: without hepatic coma Qualified Code(s): B19.20 - Unspecified viral hepatitis C without hepatic coma (4) Osteomyelitis of sacrum Status: Acute (5) DVT prophylaxis Status: Acute - Time Spent With Patient Total time spent is greater than 50% in coordination of care (as documented) at patient's floor/unit and/or counseling patient:
[2018-09-09] MEDS ORDERED: Vancomycin 500 MG in 0.9 % Sodium Chloride Mini Bag 100 ML IVPB ONE (08:54)
[2018-09-09] MEDS ORDERED: Vancomycin (wt based) 1,000 MG VIAL IVPB SCH (09:00)
--- NOTE | 2018-09-09 09:18 | Electrocardiograph Report ---
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
[2018-09-09 09:45] LABS: Chol/HDL Ratio 6.7 (0-4.9)
[2018-09-09] MEDS: Piperacillin/Tazobactam 3.375 GM in 0.9 % Sodium Chloride Mini Bag 100 ML IVPB SCH ×2 (15:46→23:48)
[2018-09-09] MEDS: Acetaminophen 325 MG TABLET PO PRN (20:41)
[2018-09-09] MEDS ORDERED: Acetaminophen IV 1,000 MG/100 ML INFUS..BTL IVPB ONE (22:32)
[2018-09-10 04:01] LABS: Hematocrit 28.4 % (37.5-50.1); Hemoglobin 8.5 g/dL (12.9-16.9); Mean Corpuscular HGB Conc 29.9 g/dL (31.6-35.5); Mean Corpuscular Hemoglobin 25.6 pg (28.0-33.3); Mean Corpuscular Volume 85.5 fL (83.0-100.0); Mean Platelet Volume 8.3 fL (9.4-12.4); Platelet Count 309 K/mcL (140-400); Red Blood Count 3.32 M/mcL (4.19-5.50); Red Cell Distribution Width 15.7 % (11.5-14.5)
[2018-09-10] MEDS ORDERED: *HR* OxyCODONE Immed Rel 5 MG TABLET PO ONE (04:09)
[2018-09-10 04:11] LABS: INR 1.2; Prothrombin Time 13.6 Seconds (9.4-12.1)
[2018-09-10 04:14] LABS: Activated Partial Thrombo Time 31.8 Seconds (26.0-36.0)
[2018-09-10 04:20] LABS: Alanine Aminotransferase 6 Units/L (7-52); Albumin 2.5 g/dL (3.5-5.7); Albumin/Globulin Ratio 0.8 (1.1-2.2); Alkaline Phosphatase 60 Units/L (34-104); Aspartate Amino Transferase 11 Units/L (13-39); BUN/Creatinine Ratio 19 (6-26); Bilirubin,Total 0.2 mg/dL (0.3-1.0); Blood Urea Nitrogen 12 mg/dL (6-20); Calcium 8.7 mg/dL (8.6-10.3); Carbon Dioxide 25 mEq/L (23-29); Chloride 108 mEq/L (98-107); Globulin 3.2 g/dL (2.4-3.5); Glucose 114 mg/dL (70-105); Magnesium 1.7 mg/dL (1.6-2.6); Osmolality,Calculated 287 (280-300); Phosphorous 3.3 mg/dL (2.7-4.5); Potassium 3.6 mEq/L (3.5-5.1); Sodium 138 mEq/L (136-145); Total Protein 5.7 g/dL (6.4-8.9); eGFR For Non-African Americans > 60 (> 60)
[2018-09-10] MEDS: Acetaminophen 325 MG TABLET PO PRN (10:58)
[2018-09-10] MEDS: Piperacillin/Tazobactam 3.375 GM in 0.9 % Sodium Chloride Mini Bag 100 ML IVPB SCH ×2 (11:20→22:30)
[2018-09-10] MEDS ORDERED: Albuterol 2.5 MG/3 ML NEBULIZER IH PRN (11:22)
[2018-09-10] MEDS: Valproic Acid 250 MG CAPSULE PO SCH ×2 (12:44→22:26)
[2018-09-10] MEDS: Lactulose Oral Soln 20 GM/30 ML UDC PO SCH ×2 (12:44→17:36)
[2018-09-10] MEDS: traMADol 50 MG TABLET PO PRN ×2 (12:45→22:32)
[2018-09-10] MEDS: Famotidine 20 MG TABLET PO SCH ×2 (12:45→23:57)
[2018-09-10] MEDS: Gabapentin 300 MG CAPSULE PO SCH ×2 (15:12→22:26)
[2018-09-10] MEDS: Baclofen 10 MG TABLET PO SCH ×2 (15:12→22:25)
[2018-09-10] MEDS: *HR* Heparin 5,000 UNIT/ML VIAL SQ SCH (17:43)
[2018-09-10] MEDS: OLANZapine 10 MG TAB.RAPDIS PO SCH (17:43)
[2018-09-10] MEDS: Budesonide/Formoterol 80/4.5 MDI IH SCH (20:18)
[2018-09-10] MEDS ORDERED: PROTEIN HYDROLYS PO SCH (21:00)
[2018-09-10] MEDS ORDERED: AMINO ACIDS PO SCH (21:00)
[2018-09-10] MEDS ORDERED: Melatonin 3 MG TABLET PO SCH (21:00)
--- NOTE | 2018-09-10 21:03 | Internal Med Progress Note ---
Hospitalist Progress Note - Encounter Date of Encounter: 09/10/18 Time of Encounter: 19:00 - Subjective Interval History: SUBJECTIVE: The patient feels better. He does not seem to be septic anymore. He is insisting for sending him back to his shelter. He does not want any changes to his treatments he was getting better. Denies chest pain. Denies difficulty breathing. Denies abdominal pain, nausea and vomiting. He continues to have low back pain. OBJECTIVE: Skin: Free of rash and discoloration. See description of his decubitus wounds in the area of low back and feetby the wound care nurse specialist. ENMT: Oral/pharyngeal mucosa is normal in appearance. Eyes: Sclera is white. There is no discharge from eyes. Respiratory: Normal breath sounds; no crackles or wheezes. CV: Heart is regular; no gallop or murmur. GI: Abdomen is soft and not tender. There is no palpable mass or visceromegaly. Neuro: There is no focal deficits. ASSESSMENT AND PLAN: It looks like this patient had sepsis at admission. Likely secondary to osteomyelitis in his coccyx/sacrum. See notes from the wound care nurse specialist. I am forced to get this patient back to the shelter tomorrow. Unless, I will be able to convince him to stay with us a low bit longer. I would like to know the results of his wound culture before sending [facility]. At this moment I will continue his IV vancomycin and IV Zosyn; the patient showed good response to that treatment. Chronic anemia. Secondary to the problems mentioned above. Stable. Chronic low back pain. We will continue his previously used analgesics. - Exam Vitals: Temp Pulse Resp BP Pulse Ox 98.4 F 87 19 131/69 94 09/10/18 19:28 09/10/18 19:28 09/10/18 20:18 09/10/18 19:28 09/10/18 20:18 Exam: xx - Assessment and Plan (1) Sepsis Current Visit: Yes Status: Acute (2) Osteomyelitis of sacrum Current Visit: Yes Status: Acute (3) Osteomyelitis of coccyx Current Visit: No Status: Acute (4) Anemia Current Visit: Yes Status: Chronic (5) Chronic low back pain Current Visit: Yes Status: Acute (6) COPD (chronic obstructive pulmonary disease) Current Visit: No Status: Chronic (7) Paraplegia Current Visit: Yes Status: Chronic - Time Spent with Patient Total time spent is greater than 50% in coordination of care (as documented) at patient's floor/unit and/or counseling patient: 25 - 35 minutes Plan of Care Discussed with: patient Internal Medicine: Result - Labs CBC & Chem 7: 09/10/18 03:45 09/10/18 03:45 Labs: Short CBC 09/10/18 Range/Units 03:45 WBC 8.7 (4.3-11.1) K/mcL Hgb 8.5 L (12.9-16.9) g/dL Hct 28.4 L (37.5-50.1) % Plt Count 309 (140-400) K/mcL BMP 09/10/18 03:45 Sodium 138 Potassium 3.6 Chloride 108 H Carbon Dioxide 25 BUN 12 Creatinine 0.62 L Glucose 114 H Calcium 8.7 Liver Function 09/10/18 Range/Units 03:45 Total Bilirubin 0.2 L (0.3-1.0) mg/dL AST 11 L (13-39) Units/L ALT 6 L (7-52) Units/L Alkaline Phosphatase 60 (34-104) Units/L Albumin 2.5 L (3.5-5.7) g/dL - ABG Interpretation ABG results: PT/INR, D-dimer PT 13.6 Seconds (9.4-12.1) H 09/10/18 03:45 Consult Discharge Plan - Plan Referrals: Jayson Gutierrez, PAC [Primary Care Provider] - (1) Sepsis Qualifiers: Sepsis type: sepsis due to unspecified organism Qualified Code(s): A41.9 - Sepsis, unspecified organism (4) Anemia Qualifiers: Anemia type: unspecified type Qualified Code(s): D64.9 - Anemia, unspecified (5) Chronic low back pain Qualifiers: Back pain laterality: midline Sciatica presence: without sciatica Qualified Code(s): M54.5 - Low back pain; G89.29 - Other chronic pain (6) COPD (chronic obstructive pulmonary disease) Qualifiers: COPD type: emphysema Emphysema type: unspecified Qualified Code(s): J43.9 - Emphysema, unspecified
[2018-09-10] MEDS: Ascorbic Acid 500 MG TABLET PO SCH (22:26)
[2018-09-10] MEDS: Zinc Sulfate 220 MG CAPSULE PO SCH (22:26)
[2018-09-11] MEDS: Piperacillin/Tazobactam 3.375 GM in 0.9 % Sodium Chloride Mini Bag 100 ML IVPB SCH ×2 (05:16→13:12)
[2018-09-11] MEDS: *HR* Heparin 5,000 UNIT/ML VIAL SQ SCH ×2 (05:17→18:55)
[2018-09-11] MEDS: Valproic Acid 250 MG CAPSULE PO SCH ×3 (05:17→18:55)
[2018-09-11] MEDS: Acetaminophen 325 MG TABLET PO PRN (05:34)
[2018-09-11] MEDS: Lactulose Oral Soln 20 GM/30 ML UDC PO SCH ×3 (08:39→16:51)
[2018-09-11] MEDS ORDERED: Iron Polysaccharide Complex 150 MG CAPSULE PO SCH (09:00)
[2018-09-11] MEDS ORDERED: Multivit/Ca/Min/Fe/FA 1 TAB TABLET PO SCH (09:00)
[2018-09-11] MEDS ORDERED: (Lidocaine [Aspercreme] 1 EACH) TP SCH (09:00)
[2018-09-11] MEDS ORDERED: Aspirin 81 MG TAB.CHEW PO SCH (09:00)
[2018-09-11] MEDS: Baclofen 10 MG TABLET PO SCH ×2 (10:00→16:45)
[2018-09-11] MEDS: Gabapentin 300 MG CAPSULE PO SCH ×2 (10:00→16:45)
[2018-09-11] MEDS: Zinc Sulfate 220 MG CAPSULE PO SCH (10:00)
[2018-09-11] MEDS: Ascorbic Acid 500 MG TABLET PO SCH (10:00)
[2018-09-11] MEDS: Famotidine 20 MG TABLET PO SCH (11:33)
[2018-09-11] MEDS: Budesonide/Formoterol 80/4.5 MDI IH SCH ×2 (11:42→19:45)
[2018-09-11 14:47] VITALS: BP 119/69
[2018-09-11] MEDS ORDERED: WATER FOR INJ IVP SCH (16:00)
[2018-09-11] MEDS ORDERED: MEROPENEM IVP SCH (16:00)
[2018-09-11] MEDS: OLANZapine 10 MG TAB.RAPDIS PO SCH (18:55)
--- NOTE | 2018-09-11 19:44 | Discharge Summary ---
Orders not resulted at time of discharge: Pending orders 09/09/18 05:35 Culture,Wound [RM] Stat 09/09/18 06:06 Culture,Blood [BC] Stat Date of Encounter: 09/11/18 Time of Encounter: 18:30 - Discharge Diagnosis (1) Decubitus ulcer, stage 4 with infection Priority: Primary Status: Acute (2) Sepsis Priority: Primary Status: Resolved Qualifiers: Sepsis type: sepsis due to unspecified organism Qualified Code(s): A41.9 - Sepsis, unspecified organism (3) Osteomyelitis of sacrum Priority: Primary Status: Acute (4) Osteomyelitis of coccyx Priority: Primary Status: Acute (5) Anemia Priority: Secondary Status: Chronic Qualifiers: Anemia type: unspecified type Qualified Code(s): D64.9 - Anemia, unspecified (6) Chronic low back pain Priority: Secondary Status: Chronic Qualifiers: Back pain laterality: midline Sciatica presence: without sciatica Qualified Code(s): M54.5 - Low back pain; G89.29 - Other chronic pain (7) COPD (chronic obstructive pulmonary disease) Priority: Secondary Status: Chronic Qualifiers: COPD type: emphysema Emphysema type: unspecified Qualified Code(s): J43.9 - Emphysema, unspecified (8) Paraplegia Priority: Secondary Status: Chronic Hospital course: HOSPITAL COURSE: The patient is a 52-year-old male. He became paraplegic at ICU when he got surgery for treatment of a mass in the area of lower spine. Subsequently, he developed osteomyelitis in sacrum and coccyx together with decubitus wound of lower back. He also developed some small decubitus wounds in the area of his feet. See description made by the wound care nurse specialist. We [facility] from his [facility] with symptoms/signs of early sepsis. We made the diagnosis of infected stage IV decubitus ulcer of sacral area. We put him on IV vancomycin and IV Zosyn. He quickly got better. Wound cultures are growing Proteus mirabilis sensitive to carbapenems. During this hospitalization the patient was demanding transfer to [facility] as soon as possible. He agreed only the treatments he was getting very. As soon as we got authorization for further stay at his SNF, we transferred him there. I requested 2 weeks of IV Invanz in that facility. He will continue treatments of his woundsas it was done before. The patient is under care of [facility] wound [facility]. CONDITION AT DISCHARGE: He feels good. His pain is under control. Fever and chills are gone. Skin: See wound care nurse specialist notes. Respiratory: Normal breath sounds with no crackles and wheezes bilaterally. CV: Heart is regular with no gallop or murmur. GI: Abdomen is flat and soft with no palpable mass or visceromegaly. Neuro exam: There is no focal deficits. Normal speech, swallowing and gait. SEE DISCHARGE ORDERS/MEDICATIONS.. - Time Spent with Patient Total time spent providing and/or coordinating discharge services: Greater than 30 minutes (45 minutes..) - Discharge Medications Prescriptions: Ertapenem [INVanz] 1,000 mg IVPB DAILY 14 Days #14 vial Home Medications: Aspirin 81 mg PO DAILY tab.chew 12/30/17 [Rx] Albuterol Neb [Proventil Neb] 2.5 mg IH Q6H PRN 07/01/18 [History] Baclofen [Lioresal] 5 mg PO TID 07/01/18 [History] Doxycycline Hyclate [Vibramycin] 100 mg PO BID 07/01/18 [History] Famotidine [Heartburn Prevention] 20 mg PO Q12H 07/01/18 [History] Gabapentin [Neurontin] 600 mg PO TID 07/01/18 [History] Heparin 5,000 unit SQ Q8H 07/01/18 [History] Iron Polysaccharide Complex [Ferrex 150] 150 mg PO DAILY 07/01/18 [History] Nortriptyline [Pamelor] 25 mg PO HS 07/01/18 [History] Valproic Acid (As Sodium Salt) [Valproic Acid] 500 mg PO Q8H 07/01/18 [History] Ascorbic Acid [Vitamin C] 500 mg PO BID 07/28/18 [History] Budesonide/Formoterol 80/4.5 [Symbicort 80/4.5] 2 puff IH BID 07/28/18 [History] Lactulose [Enulose] 20 gm PO TIDWM 07/28/18 [History] Lidocaine [Aspercreme] 1 each TP DAILY 07/28/18 [History] Melatonin [Melatin] 3 mg PO HS 07/28/18 [History] Multivitamin [Multivitamins] 1 each PO DAILY 07/28/18 [History] OLANZapine [Zyprexa] 10 mg PO QPM 07/28/18 [History] Zinc Sulfate 220 mg PO BID 07/28/18 [History] Acetaminophen [Tylenol] 650 mg PO Q8H PRN 08/04/18 [History] Patient Taking Own Medication 30 ml IR Q12H PRN 08/04/18 [History] Tramadol HCl [Ultram] 50 mg PO Q8H PRN 10 Days #30 tablet 08/07/18 [Rx] Amino Acids/Protein Hydrolys [Pro-Stat Awc Liquid] 30 ml PO BID 09/09/18 [Hi story] Buspirone HCl [Buspar] 5 mg PO TID 09/09/18 [History] Ertapenem [INVanz] 1,000 mg IVPB DAILY 14 Days #14 vial 09/11/18 [Rx] Allergies/Adverse Reactions: Allergy/AdvReac Type Severity Reaction Status Date / Time No Known Allergies Allergy Verified 08/02/18 22:22 Date of admission: 09/11/18 16:55 Primary care physician: Jayson Gutierrez Consults: 09/09/18 09:45 Consult to Textile Artist [CONS] Routine Reason for SW Consult: Pt from [facility] 09/09/18 16:21 Consult to Wound Care [CONS] Routine Reason for Consult: chronic pressure injuries Call Completed: No Discharging clinician: Liang Joseph Anticipated date of discharge: 09/11/18 - Constitutional Vitals: Temp Pulse Resp BP Pulse Ox 97.5 F L 83 13 119/69 94 09/11/18 14:39 09/11/18 14:39 09/11/18 14:39 09/11/18 14:39 09/11/18 14:39 General appearance: Present: A&O X 3, answers questions appropriately Exam: xx - Patient Status Disposition: Transfer SNF Condition: Fair Overall status at discharge: patient is back to baseline - Discharge Instructions Follow Up With: Jayson Gutierrez, PAC [Primary Care Provider] - Additional Instructions: WOUND CARE -- PREVIOUSLY USED IN HIS SNF.. FOLLOW-UP WITH WOUND CARE CANTER -- SCHEDULED BEFORE.. - Diet and Activity Activity: other (BED REST..) Diet: regular diet - VTE Deep Vein Thrombosis/Pulmonary Embolism Present on Admission: No
--- NOTE | 2018-09-11 19:45 | Physician Discharge Referral ---
ExtendedCare Referral Info Transfer To: SNF Provider in Charge: Zeny Joseph MD Provider in Charge after Transfer: Other (A SNF physician..) Institutional Level of Care: Skilled - Diagnosis (1) Decubitus ulcer, stage 4 with infection Priority: Primary Status: Acute (2) Sepsis Priority: Primary Status: Resolved (3) Osteomyelitis of sacrum Priority: Primary Status: Acute (4) Osteomyelitis of coccyx Priority: Primary Status: Acute (5) Anemia Priority: Secondary Status: Chronic (6) Chronic low back pain Priority: Secondary Status: Chronic (7) COPD (chronic obstructive pulmonary disease) Status: Chronic (8) Paraplegia Priority: Secondary Status: Chronic - Transfer Medications Prescriptions: Ertapenem [INVanz] 1,000 mg IVPB DAILY 14 Days #14 vial Home Medications: Aspirin 81 mg PO DAILY tab.chew 12/30/17 [Rx] Albuterol Neb [Proventil Neb] 2.5 mg IH Q6H PRN 07/01/18 [History] Baclofen [Lioresal] 5 mg PO TID 07/01/18 [History] Doxycycline Hyclate [Vibramycin] 100 mg PO BID 07/01/18 [History] Famotidine [Heartburn Prevention] 20 mg PO Q12H 07/01/18 [History] Gabapentin [Neurontin] 600 mg PO TID 07/01/18 [History] Heparin 5,000 unit SQ Q8H 07/01/18 [History] Iron Polysaccharide Complex [Ferrex 150] 150 mg PO DAILY 07/01/18 [History] Nortriptyline [Pamelor] 25 mg PO HS 07/01/18 [History] Valproic Acid (As Sodium Salt) [Valproic Acid] 500 mg PO Q8H 07/01/18 [History] Ascorbic Acid [Vitamin C] 500 mg PO BID 07/28/18 [History] Budesonide/Formoterol 80/4.5 [Symbicort 80/4.5] 2 puff IH BID 07/28/18 [History] Lactulose [Enulose] 20 gm PO TIDWM 07/28/18 [History] Lidocaine [Aspercreme] 1 each TP DAILY 07/28/18 [History] Melatonin [Melatin] 3 mg PO HS 07/28/18 [History] Multivitamin [Multivitamins] 1 each PO DAILY 07/28/18 [History] OLANZapine [Zyprexa] 10 mg PO QPM 07/28/18 [History] Zinc Sulfate 220 mg PO BID 07/28/18 [History] Acetaminophen [Tylenol] 650 mg PO Q8H PRN 08/04/18 [History] Patient Taking Own Medication 30 ml IR Q12H PRN 08/04/18 [History] Tramadol HCl [Ultram] 50 mg PO Q8H PRN 10 Days #30 tablet 08/07/18 [Rx] Amino Acids/Protein Hydrolys [Pro-Stat Awc Liquid] 30 ml PO BID 09/09/18 [History] Buspirone HCl [Buspar] 5 mg PO TID 09/09/18 [History] Ertapenem [INVanz] 1,000 mg IVPB DAILY 14 Days #14 vial 09/11/18 [Rx] Allergies/Adverse Reactions: Allergy/AdvReac Type Severity Reaction Status Date / Time No Known Allergies Allergy Verified 08/02/18 22:22 - Respiratory Orders None Smoking Cessation: Smoking cessation has been advised. For more information, call the [place] Tobacco Quit Line at 2-671-VCBS-NOW. - Mobility Orders Bedrest - Rehabiliation Orders Rehab Potential: Poor - Treatments List/Other: WOUND CARE -- PREVIOUSLY USED AT SNF.. - Diet Orders Regular CERTIFICATION: I certify that the transfer of the above named patient to an Extended Care Facility is necessary for the continuing treatment of the diagnosis listed. The above information is true and accurate reflection of patient's current condition. Confidential - Redisclosure prohibited without a patient's written consent.
[2018-09-11] MEDS ORDERED: Doxycycline 100 MG CAPSULE PO SCH (21:00)
[2018-09-11] MEDS ORDERED: Aminoglycoside Consult 1 EACH MC ONE (21:28)
== END 2018-09-11 21:29 | DRG 720 ==
LOC: EMEROOARM 04:41 → 3ANU 04:41 → SUATTDRO 06:55 → 3ANU 08:02
PROVIDERS: ADMIT Internal Medicine; ATTEND Internal Medicine

== ENCOUNTER 2018-10-14 21:11 | Observation (INO) ==
[2018-10-14] MEDS ORDERED: 0.9 % Sodium Chloride 1,000 ML IVC ONE (21:23)
--- NOTE | 2018-10-14 21:39 | Emergency Department Note ---
Disposition Clinical Impression: Weakness of both lower extremities, Pressure ulcer of sacral region, stage 4 Urinary tract infection Qualifiers: Urinary tract infection type: site unspecified Hematuria presence: without hematuria Qualified Code(s): N39.0 - Urinary tract infection, site not specified Sepsis Qualifiers: Sepsis type: sepsis due to unspecified organism Qualified Code(s): A41.9 - Sepsis, unspecified organism Disposition: Admitted As Inpatient Condition: Fair Time of Disposition: 01:22 General Adult HPI - General Chief complaint: ED General Medical Stated complaint: sepsis Time Seen by Provider: 10/14/18 21:15 Source: patient, EMS Mode of arrival: EMS Limitations: no limitations Nursing Notes Reviewed: Yes Vital Signs Reviewed: Yes - History of Present Illness HPI Narrative: 53-year-old male with history of chronic decubitus ulcers and bilateral lower extremity weakness presents emergency department via EMS from [facility] with concern for elevated heart rate and fever. Initial concern is for infection. Patient reports that he is been feeling short of breath and has been coughing recently. He is also complaining of abdominal pain. The pain is mostly in the lower quadrants mostly suprapubic. Denies any nausea or vomiting. He presents with a chronic Willis catheter states no issues with it. He also has decubitus ulcers that he states wound care is currently treating him for it. Pain Scale: 8 - Related Data Home Medications Medication Instructions Recorded Confirmed Albuterol Neb [Proventil Neb] 2.5 mg IH Q6H PRN 07/01/18 09/18/18 Baclofen [Lioresal] 5 mg PO TID 07/01/18 09/18/18 Famotidine [Heartburn Prevention] 20 mg PO Q12H 07/01/18 09/18/18 Gabapentin [Neurontin] 600 mg PO TID 07/01/18 09/18/18 Heparin 5,000 unit SQ Q8H 07/01/18 09/18/18 Iron Polysaccharide Complex 150 mg PO DAILY 07/01/18 09/18/18 [Ferrex 150] Nortriptyline [Pamelor] 25 mg PO HS 07/01/18 09/18/18 Ascorbic Acid [Vitamin C] 500 mg PO BID 07/28/18 09/18/18 Budesonide/Formoterol 80/4.5 2 puff IH BID 09/11/18 11/02/18 [Symbicort 80/4.5] Lactulose [Enulose] 20 gm PO TIDWM 07/28/18 09/18/18 Lidocaine [Aspercreme] 1 each TP DAILY 07/28/18 09/18/18 Melatonin [Melatin] 3 mg PO HS 07/28/18 09/18/18 Multivitamin [Multivitamins] 1 each PO DAILY 07/28/18 09/18/18 OLANZapine [Zyprexa] 10 mg PO QPM 07/28/18 09/18/18 Zinc Sulfate 220 mg PO BID 07/28/18 09/18/18 Acetaminophen [Tylenol] 650 mg PO Q8H PRN 08/04/18 09/18/18 Patient Taking Own Medication 30 ml IR Q12H PRN 08/04/18 09/18/18 Amino Acids/Protein Hydrolys 30 ml PO BID 09/09/18 09/18/18 [Pro-Stat Awc Liquid] Buspirone HCl [Buspar] 5 mg PO TID 09/09/18 09/18/18 Valproic Acid [Depakene] 500 mg PO Q8H 09/18/18 09/18/18 Previous Rx's Medication Instructions Recorded Aspirin 81 mg PO DAILY tab.chew 12/30/17 Tramadol HCl [Ultram] 50 mg PO Q8H PRN 10 Days #30 tablet 08/07/18 Allergies Allergy/AdvReac Type Severity Reaction Status Date / Time No Known Allergies Allergy Verified 08/02/18 22:22 All systems ED: reviewed and negative except as stated. Review of Systems: As Per HPI Constitutional: Reports: fever ENT ED: Denies: congestion Cardiovascular: Denies: chest pain Respiratory: Reports: cough, dyspnea Gastrointestinal: Reports: abdominal pain. Denies: nausea, vomiting Genitourinary: Denies: urgency, dysuria Musculoskeletal: Denies: back pain Integumentary: Denies: rash, abrasion Neurological: Reports: weakness Past Medical History - Past Medical History Attestation: Yes The following information was validated with the patient. Source: patient, old records reviewed Medical history: Reports: COPD, GERD, hepatitis, other Surgical history: Reports: non-contributory Psychiatric history: Reports: bipolar, schizophrenia - Social History Smoking Status: Current every day smoker Smokeless Tobacco Status: No Alcohol use: Reports: none Drug use: Reports: none Physical Exam - General Limitations: no limitations General appearance: alert, in no apparent distress, other (Chronically ill) - Head Head exam: atraumatic, normocephalic, normal inspection - Eye Eye exam: Present: normal appearance, PERRL, EOMI - ENT ENT exam: normal oropharynx, mucous membranes dry, other (edentulous) - Chest Chest inspection: Present: normal inspection, symmetric chest wall rise. Absent: tenderness - Respiratory Respiratory exam: Present: normal lung sounds bilaterally. Absent: respiratory distress, wheezes - Cardiovascular Cardiovascular exam: Present: regular rate, normal rhythm, normal heart sounds - Abdominal Exam Abdominal exam: Present: soft, tenderness, normal bowel sounds. Absent: Non- Tender, distention, guarding, rebound, rigidity Abdominal tenderness: Present: suprapubic - Male exam: Present: normal inspection, circumcised, other (Willis catheter in place, it appeared the catheter was clamped) - Extremities Exam Extremities exam: Present: other (Bilateral decubitus ulcers to the heels) - Back Exam Back exam: Present: other (Large extensive decubitus ulcer to the sacral lumbar region) - Neurological Exam Neurological exam: Present: alert, oriented X3 - Expanded Neurological Exam Patient oriented to: Present: person, place, time Speech: Present: fluid speech Motor strength - LUE: 4/5 Motor strength - RUE: 4/5 Motor strength - LLE: 1/5 Motor strength - RLE: 1/5 Coma Scale Eye Opening: Spontaneous Coma Scale Motor Response: Obeys Commands Coma Scale Verbal Response: Oriented Coma Scale Total: 15 - Psychiatric Psychiatric exam: Present: normal affect, normal mood - Expanded Skin Exam 1 - Decubitus ulcers, spares the inter-gluteal fold, crepitus or eschar 2 - Decubitus ulcers to the inner thigh, spares the scrotum Course Course Narrative: Patient presents with concern for sepsis as he presents with elevated heart rate and reported fever at nursing facility. Patient is afebrile here. He is awake alert and oriented to person place and time. He is complaining of some abdominal discomfort. During my examination we realized his Willis catheter was clamped and when it was on clamped he immediately had urine output that was cloudy and purulent. He had almost a total of 1.5 L of urine output. He also says extensive decubitus ulcers to sacral region and inner thighs. Otherwise patient's blood pressure is stable. Sepsis workup initiated. Also obtain a CT of the abdomen as well as a chest x-ray to evaluate for other sources of infection. - Reevaluation(s) Reevaluation #1: Urinalysis is consistent with infection. Review of his prior urine culture shows that he is sensitive to Zosyn. Will treat with Zosyn at this time. Chest x-ray does not reveal pneumonia. His lactate is 1.1. His magnesium is low at 1.1 and will replete. His hemoglobin is stable. His white blood cell count is significantly elevated at 20. Concern for sepsis likely urinary. Will admit him to the hospital for continued treatment and the wound care. Patients in agreement with this plan. He is not meet septic shock. - Consultations Consultation #1: Spoke with on-call hospitalist louann Han to admit for UTI, sepsis, chr onic decubitus ulcers. No further orders at this time Vital Signs Temperature 98.6 F 10/14/18 21:14 Pulse Rate 126 10/14/18 21:14 Respiratory Rate 16 10/14/18 21:14 Blood Pressure 148/72 10/14/18 21:14 O2 Sat by Pulse Oximetry 98 10/14/18 21:14 Temperature 98.6 F 10/14/18 21:14 Pulse Rate 94 10/15/18 01:22 Respiratory Rate 14 10/15/18 02:57 Blood Pressure 106/54 10/15/18 02:57 O2 Sat by Pulse Oximetry 97 10/15/18 01:22 Oxygen Delivery Oxygen Delivery Room Air Medical Decision Making - MDM Narrative Medical decision making narrative: Patient was discussed with my attending physician who agrees with ED management and final disposition. They independently evaluated the patient. Please refer to their attestation to this encounter for additional information. This note was generated by [employer] voice recognition software and as a result grammatical or spelling errors may occur using this program. - Medical Records Medical records reviewed: Yes I reviewed the patient's medical records. - Lab Data Lab results reviewed: Yes I reviewed the patient's lab results. Result diagrams: 11/28/18 21:24 10/14/18 21:24 Lab Results 10/14/18 10/14/18 10/14/18 Range/Units 21:24 21:24 21:24 WBC 20.3 H (4.3-11.1) K/mcL RBC 3.44 L (4.19-5.50) M/mcL Hgb 8.6 L (12.9-16.9) g/dL Hct 27.9 L (37.5-50.1) % MCV 81.1 L (83.0-100.0) fL MCH 25.0 L (28.0-33.3) pg MCHC 30.8 L (31.6-35.5) g/dL RDW 15.9 H (11.5-14.5) % Plt Count 226 (140-400) K/mcL MPV 9.0 L (9.4-12.4) fL Immature Gran % 0.8 (0-4) % Seg Neutrophils % 78.1 % Lymphocytes % 12.3 % Monocytes % 7.8 % Eosinophils % 0.8 % Basophils % 0.2 % Neutrophils # 15.8 H (1.6-8.9) K/mcL Lymphocytes # 2.5 (0.6-4.6) K/mcL Monocytes # 1.6 H (0.0-1.3) K/mcL Eosinophils # 0.2 (0.0-0.6) K/mcL Basophils # 0.1 (0.0-0.2) K/mcL PT 15.3 H (9.4-12.1) Seconds INR 1.4 APTT 34.7 (26.0-36.0) Seconds Sodium (136-145) mEq/L Potassium (3.5-5.1) mEq/L Chloride (98-107) mEq/L Carbon Dioxide (23-29) mEq/L BUN (6-20) mg/dL Creatinine (0.70-1.30) mg/dL Est GFR ( Amer) (> 60) Est GFR (Non-Af Amer) (> 60) BUN/Creatinine Ratio (6-26) Glucose (70-105) mg/dL Calculated Osmolality (280-300) Lactic Acid (0.5-2.2) mmol/L Calcium (8.6-10.3) mg/dL Phosphorus (2.7-4.5) mg/dL Magnesium (1.6-2.6) mg/dL Total Bilirubin (0.3-1.0) mg/dL Direct Bilirubin (0.0-0.2) mg/dL Indirect Bilirubin (0.0-1.2) mg/dL AST (13-39) Units/L ALT (7-52) Units/L Alkaline Phosphatase (34-104) Units/L Troponin I (< 0.04) ng/mL Serum Total Protein (6.4-8.9) g/dL Albumin (3.5-5.7) g/dL Globulin (2.4-3.5) g/dL Albumin/Globulin Ratio (1.1-2.2) Urine Color Dark Yellow (Yellow) Urine Clarity Turbid A (Clear) Urine pH 5.5 (5.0-8.0) pH Units Ur Specific [place] 1.018 (1.010-1.025) Urine Protein 100 H (Neg-Trace) mg/dL Urine Glucose (UA) Normal (Normal) mg/dL Urine Ketones Trace H (Negative) mg/dL Urine Blood Large H (Negative) Urine Nitrite Positive A (Negative) Urine Bilirubin Negative (Negative) Urine Urobilinogen Normal (Normal) mg/dL Ur Leukocyte Esterase Large H (Negative) Urine Microscopic RBC 5-15 H (0-3) per hpf Urine Microscopic WBC TNTC H (0-3) per hpf Urine Bacteria Moderate H (None-Few) per hpf Ur Culture Indicated? YES A (NO) 10/14/18 10/14/18 Range/Units 21:24 21:24 WBC (4.3-11.1) K/mcL RBC (4.19-5.50) M/mcL Hgb (12.9-16.9) g/dL Hct (37.5-50.1) % MCV (83.0-100.0) fL MCH (28.0-33.3) pg MCHC (31.6-35.5) g/dL RDW (11.5-14.5) % Plt Count (140-400) K/mcL MPV (9.4-12.4) fL Immature Gran % (0-4) % Seg Neutrophils % % Lymphocytes % % Monocytes % % Eosinophils % % Basophils % % Neutrophils # (1.6-8.9) K/mcL Lymphocytes # (0.6-4.6) K/mcL Monocytes # (0.0-1.3) K/mcL Eosinophils # (0.0-0.6) K/mcL Basophils # (0.0-0.2) K/mcL PT (9.4-12.1) Seconds INR APTT (26.0-36.0) Seconds Sodium 134 L (136-145) mEq/L Potassium 4.4 (3.5-5.1) mEq/L Chloride 99 (98-107) mEq/L Carbon Dioxide 27 (23-29) mEq/L BUN 19 (6-20) mg/dL Creatinine 0.86 (0.70-1.30) mg/dL Est GFR ( Amer) > 60 (> 60) Est GFR (Non-Af Amer) > 60 (> 60) BUN/Creatinine Ratio 22 (6-26) Glucose 107 H (70-105) mg/dL Calculated Osmolality 281 (280-300) Lactic Acid 1.1 (0.5-2.2) mmol/L Calcium 9.1 (8.6-10.3) mg/dL Phosphorus 2.9 (2.7-4.5) mg/dL Magnesium 1.1 L (1.6-2.6) mg/dL Total Bilirubin 0.4 (0.3-1.0) mg/dL Direct Bilirubin 0.0 (0.0-0.2) mg/dL Indirect Bilirubin 0.4 (0.0-1.2) mg/dL AST 8 L (13-39) Units/L ALT 6 L (7-52) Units/L Alkaline Phosphatase 77 (34-104) Units/L Troponin I < 0.03 (< 0.04) ng/mL Serum Total Protein 6.7 (6.4-8.9) g/dL Albumin 2.7 L (3.5-5.7) g/dL Globulin 4.0 H (2.4-3.5) g/dL Albumin/Globulin Ratio 0.7 L (1.1-2.2) Urine Color (Yellow) Urine Clarity (Clear) Urine pH (5.0-8.0) pH Units Ur Specific [place] (1.010-1.025) Urine Protein (Neg-Trace) mg/dL Urine Glucose (UA) (Normal) mg/dL Urine Ketones (Negative) mg/dL Urine Blood (Negative) Urine Nitrite (Negative) Urine Bilirubin (Negative) Urine Urobilinogen (Normal) mg/dL Ur Leukocyte Esterase (Negative) Urine Microscopic RBC (0-3) per hpf Urine Microscopic WBC (0-3) per hpf Urine Bacteria (None-Few) per hpf Ur Culture Indicated? (NO) - Radiology Data Radiology results reviewed: Yes I reviewed the patient's radiology results. Chest X-Ray 10/14/18 21:23 IMPRESSION: Stable chest without acute process. D/ / Lamin Wall MD / Lamin Wall MD Interpreting Provider: Lamin Wall MD Abdomen/Pelvis CT 10/14/18 21:24 IMPRESSION: There is unchanged thickening of the wall of the urinary bladder. There is perivesical fat stranding. Correlate for possible acute cystitis. There is unchanged thickening of the wall of the rectum with perirectal fat stranding. There are unchanged decubitus ulcers involving the sacrum, both ischial tuberosities and left greater trochanter with adjacent bone changes consistent with osteomyelitis. Debris or mucous plugs filling the left lower lobe bronchi. This may represent debris from aspiration and/or mucous plugs. D/ / Scout Loomis MD / Scout Loomis MD Interpreting Provider: Scout Loomis MD - EKG Data EKG #1 EKG attestation: Yes I reviewed and interpreted this EKG. EKG results narrative: EKG performed 2122 sinus tachycardia 126 beats per minute, normal axis, poor R wave progression, no ST elevation or depression, intervals appear within normal limits. Compared to prior EKG performed 09/18/2018 shows similar consistent findings of sinus rhythm 76 beats per minute. No acute ischemic changes. Attestation Statement - Attestation Attestation: I, Oscar Hankins, examined this patient and my medical decision-making was reviewed with the [employer]IC/PA/Advanced Practice Nurse/Resident Physician. I agree with the documented findings, disposition and treatment plan as described except to the extent set forth below. 53-year-old male presents emergency Department with concerns of tachycardia and possible sepsis. Patient has large decubitus ulcers. He had tenderness to palpation of the abdomen on the initial evaluation. Also on initial evaluation and noted that his Willis catheter had been clamped for an unknown period of time. After was clamped he drained almost a liter and a half of urine which was had a purulent appearance. Patient was given antibiotics emergency department and he will be admitted to hospitalist for further care and evaluation.
[2018-10-14 21:44] LABS: Basophils # 0.1 K/mcL (0.0-0.2); Basophils % 0.2 %; Eosinophils # 0.2 K/mcL (0.0-0.6); Eosinophils % 0.8 %; Hematocrit 27.9 % (37.5-50.1); Hemoglobin 8.6 g/dL (12.9-16.9); Immature Granulocytes % 0.8 % (0-4); Lymphocytes # 2.5 K/mcL (0.6-4.6); Lymphocytes % 12.3 %; Mean Corpuscular HGB Conc 30.8 g/dL (31.6-35.5); Mean Corpuscular Volume 81.1 fL (83.0-100.0); Monocytes # 1.6 K/mcL (0.0-1.3); Monocytes % 7.8 %; Neutrophils # 15.8 K/mcL (1.6-8.9); Platelet Count 226 K/mcL (140-400); Red Blood Count 3.44 M/mcL (4.19-5.50); Red Cell Distribution Width 15.9 % (11.5-14.5); Segmented Neutrophils % 78.1 %
[2018-10-14 21:47] LABS: Bilirubin,Urine Negative (Negative); Blood,Urine Large (Negative); Clarity,Urine Turbid (Clear); Color,Urine Dark Yellow (Yellow); Glucose,Urine (UA) Normal (Normal); Ketones,Urine Trace mg/dL (Negative); Leukocyte Esterase,Urine Large (Negative); Nitrite,Urine Positive (Negative); PH,Urine 5.5 pH Units (5.0-8.0); Protein,Urine 100 mg/dL (Neg-Trace); Specific Gravity,Urine 1.018 (1.010-1.025); Urobilinogen,Urine Normal (Normal)
[2018-10-14 22:02] LABS: INR 1.4; Prothrombin Time 15.3 Seconds (9.4-12.1)
[2018-10-14 22:05] LABS: Activated Partial Thrombo Time 34.7 Seconds (26.0-36.0); Alanine Aminotransferase 6 Units/L (7-52); Albumin 2.7 g/dL (3.5-5.7); Albumin/Globulin Ratio 0.7 (1.1-2.2); Alkaline Phosphatase 77 Units/L (34-104); Aspartate Amino Transferase 8 Units/L (13-39); BUN/Creatinine Ratio 22 (6-26); Bilirubin,Indirect 0.4 mg/dL (0.0-1.2); Bilirubin,Total 0.4 mg/dL (0.3-1.0); Blood Urea Nitrogen 19 mg/dL (6-20); Calcium 9.1 mg/dL (8.6-10.3); Carbon Dioxide 27 mEq/L (23-29); Chloride 99 mEq/L (98-107); Glucose 107 mg/dL (70-105); Magnesium 1.1 mg/dL (1.6-2.6); Osmolality,Calculated 281 (280-300); Phosphorous 2.9 mg/dL (2.7-4.5); Potassium 4.4 mEq/L (3.5-5.1); Sodium 134 mEq/L (136-145); Total Protein 6.7 g/dL (6.4-8.9); Troponin I < 0.03 ng/mL (< 0.04); eGFR For Non-African Americans > 60 (> 60)
[2018-10-14 22:10] LABS: WBC,Urine TNTC per hpf (0-3)
[2018-10-14 22:11] LABS: Bacteria,Urine Moderate per hpf (None-Few)
[2018-10-14] MEDS ORDERED: Piperacillin/Tazobactam 3.375 GM in Water for inj. (sterile) 20 ML 20 ML IVP ONE (22:30)
[2018-10-14] MEDS ORDERED: D5% in 0.45% NACL 1,000 ML IVC ONE (22:47)
[2018-10-15] MEDS ORDERED: 0.9 % Sodium Chloride 1,000 ML IVC SCH (01:45)
--- NOTE | 2018-10-15 02:34 | Internal Med History&Physical ---
Addendum entered and electronically signed by Nick Jose MD 10/15/18 07:31: I saw and evaluated the patient. I reviewed the residents note, performed my own physical examination and agree with findings and plan as documented in the residents note. Patient seen and examined on 10/15/18. Patient presented with abdominal pain, with a clamped mccallum catheter. This abdominal pain was improved after mccallum catheter was unclamped. Has a long history of UTIs, growing various organisms on culture. Patient was started on zosyn in the ER, as UA indicated infection. Continue to monitor. Original Note: Date of Encounter: 10/15/18 Time of Encounter: 02:33 Internal Medicine - H&P: HPI Chief complaint: Abdominal Pain/ Back Pain Admitted From: [facility] Plans for Post Hospital Care[facility] History of present illness: Mr. Carrasco is a 53 year old male with PMHx significant for paraplegia, chronic osteomyelitis, multiple decubitus ulcers, chronic anemia, mood disorders, epidural abscess, COPD, GERD who presents to the ED from [facility] due to abdominal pain/ back pain, and elevated HR with fever. Pt is a poor historian, and most of information was obtained via chart review. Per ED physician, pt initially complained of abdominal pain. Associated with cough, mild dyspnea. Pain was noted to be in suprapubic region. Pt denied headache, ear pain, SOB, chest pain, nausea, vomiting, diarrhea. Pt has indwelling mccallum catheter, and reports having no problem with catheter. Also has multiple decubi tus ulcers managed by wound care. Pt has multiple previous admissions over the course of the past three months with similar symptoms. On exam, ED physician Dr. Eagle noted that patient's Mccallum catheter was clamped, and when it was unclamped, pt immediately had nearly 1.5L cloudy, purulent urine output. Afterwards, pt reported relief of abdominal symptoms. Currently resting comfortably in no acute distress at time of my exam. In the ED, pt was evaluated for sepsis, possibly secondary to urinary infection and/or decubitus ulcers. Remained afebrile here (reported to be febrile at nursing facility), but found to be tachycardic with leukocytosis, and had a UA suggestive of UTI. Lactic acid was normal. Blood cultures were drawn, and Urine culture was sent. CXR was not suggestive of pneumonia, and EKG was similar to previous EKGs. Trop was negative. Mg was low and was repleted in th e ED. Pt was treated with Zosyn, as previous urine cultures showed sensitivity to Zosyn, and was given IVF. Initial Vitals in the ED: T = 98.6; HR = 126; RR = 16; BP = 148/72; O2 on RA = 98% CBC: WBC = 20.3; Hb/Hct = 8.6/27.9; Plts = 226 BMP: Within normal limits Mg = 1.1 --> repleted in the ED Lactic Acid = 1.1 Trop: Negative UA: Dark, Turbid urine; Large blood; Positive Nitrites; Large Leuk Est; WBC TNTC --> Pending Urine Culture Most recent urine cultures (09/09/18) have grown Proteus Mirabilis: sensitive only to Carbapenems, tobramycin and Zosyn Previous Urine Cultures (12/29/17) have grown MRSA: Pansensitive except Bactrim and oxacillin CXR: Stable without acute process CT Abd/Pelvis w/o contrast: - There is unchanged thickening of the wall of the urinary bladder. There is perivesical fat stranding. Correlate for possible acute cystitis. - There is unchanged thickening of the wall of the rectum with perirectal fat stranding. - There are unchanged decubitus ulcers involving the sacrum, both ischial tuberosities and left greater trochanter with adjacent bone changes consistent with osteomyelitis. - Debris or mucous plugs filling the left lower lobe bronchi. This may represent debris from aspiration and/or mucous plugs. EKG: Sinus tachycardia; HR = 126; Normal axis; poor R wave progression; No acute ST changes; normal intervals; similar to previous EKGs Patient to be admitted to hospitalist floor for management of sepsis, UTI, and chronic decubitus ulcers. Past Med Surg Social Fam HX - Past Medical History Source: old records reviewed Medical history: COPD, GERD, hepatitis (Hepatitis C), other Additional medical history: spinal stenosis, anemia, encephalopathy, GI hemorrhage,MRSA, osteomyelitis, pressure ulcer Psychiatric history: bipolar, schizophrenia - Past Surgical History Surgical History: colostomy, orthopedic, other Additional surgical history: back/spine surgery, evacuation of epidural abscess, I&D, C5-T1 laminectomy December 2017 - Social History Smoking Status: Current every day smoker Smokeless Tobacco Status: No Alcohol use: none Drug use: none - Family History Father Living Status: Hx Family Cardiac Disorders: Yes ([place]) Mother Living Status: Hx Family Cancer: Yes Internal Medicine - H&P: Meds Aspirin 81 mg PO DAILY tab.chew 12/30/17 [Rx] Albuterol Neb [Proventil Neb] 2.5 mg IH Q6H PRN 07/01/18 [History] Baclofen [Lioresal] 5 mg PO TID 07/01/18 [History] Famotidine [Heartburn Prevention] 20 mg PO Q12H 07/01/18 [History] Gabapentin [Neurontin] 600 mg PO TID 07/01/18 [History] Heparin 5,000 unit SQ Q8H 07/01/18 [History] Iron Polysaccharide Complex [Ferrex 150] 150 mg PO DAILY 07/01/18 [History] Nortriptyline [Pamelor] 25 mg PO HS 07/01/18 [History] Ascorbic Acid [Vitamin C] 500 mg PO BID 07/28/18 [History] Budesonide/Formoterol 80/4.5 [Symbicort 80/4.5] 2 puff IH BID 07/28/18 [History] Lactulose [Enulose] 20 gm PO TIDWM 07/28/18 [History] Lidocaine [Aspercreme] 1 each TP DAILY 07/28/18 [History] Melatonin [Melatin] 3 mg PO HS 07/28/18 [History] Multivitamin [Multivitamins] 1 each PO DAILY 07/28/18 [History] OLANZapine [Zyprexa] 10 mg PO QPM 07/28/18 [History] Zinc Sulfate 220 mg PO BID 07/28/18 [History] Acetaminophen [Tylenol] 650 mg PO Q8H PRN 08/04/18 [History] Patient Taking Own Medication 30 ml IR Q12H PRN 08/04/18 [History] Tramadol HCl [Ultram] 50 mg PO Q8H PRN 10 Days #30 tablet 08/07/18 [Rx] Amino Acids/Protein Hydrolys [Pro-Stat Awc Liquid] 30 ml PO BID 09/09/18 [History] Buspirone HCl [Buspar] 5 mg PO TID 09/09/18 [History] Valproic Acid [Depakene] 500 mg PO Q8H 09/18/18 [History] Allergy/AdvReac Type Severity Reaction Status Date / Time No Known Allergies Allergy Verified 08/02/18 22:22 All Systems PM: A 10-system review of systems was performed and is negative for pertinent findings except as documented above in the HPI. - Constitutional Constitutional: weakness, no anorexia, no chills, no fatigue, no fever(s), no lethargy, no malaise - EENT Eyes: no change in vision Nose, mouth and throat: no dry mouth, no facial pain, no nasal congestion, no neck pain - Cardiovascular Cardiovascular ROS IM: no chest pain, no dyspnea - Respiratory Respiratory: cough, no dyspnea, no hemoptysis - Gastrointestinal Gastrointestinal: abdominal pain, no constipation, no diarrhea, no nausea, no vomiting - Genitourinary Genitourinary ROS male: no dysuria, no urinary frequency, no urinary urgency - Musculoskeletal Musculoskeletal ROS IM: no back pain, no myalgias, no neck pain - Integumentary Integumentary IM: non-healing lesions, skin ulcer, sores - Neurological Neurological ROS: confusion, no headache(s) - Constitutional Vitals: Temp Pulse Resp BP Pulse Ox 98.6 F 94 16 104/64 97 10/14/18 21:14 10/15/18 01:22 10/15/18 01:22 10/15/18 01:22 10/15/18 01:22 General appearance: Present: cooperative, A&O X 3, pleasant, no acute distress, answers questions appropriately Exam: GEN: AOx3; NAD; resting comfortably in bed; Paraplegic; Chronic Indwelling mccallum catheter HEENT: Atraumatic, normocephalic, EOMI, mucous membranes moist CARDIO: RRR, no murmurs, rubs, gallops PULM: CTAB, no wheezes, rales, rhonchi ABD: Soft, non-distended, non-tender; bowel sounds present; no guarding or rebound NEURO: AOx3; CN 2-12 intact; 5/5 strength upper extremities; paraplegia of lower extremities EXT: No lower extremity edema; bandaging of bilateral feet; multiple sacral decubitus ulcers in various stages of healing Internal Med - H&P Results - Labs CBC & Chem 7: 10/14/18 21:24 10/14/18 21:24 Labs: Short CBC 10/14/18 Range/Units 21:24 WBC 20.3 H (4.3-11.1) K/mcL Hgb 8.6 L (12.9-16.9) g/dL Hct 27.9 L (37.5-50.1) % Plt Count 226 (140-400) K/mcL Neutrophils # 15.8 H (1.6-8.9) K/mcL BMP 10/14/18 21:24 Sodium 134 L Potassium 4.4 Chloride 99 Carbon Dioxide 27 BUN 19 Creatinine 0.86 Glucose 107 H Calcium 9.1 Cardiac Enzymes 10/14/18 Range/Units 21:24 Troponin I < 0.03 (< 0.04) ng/mL Liver Function 10/14/18 Range/Units 21:24 Total Bilirubin 0.4 (0.3-1.0) mg/dL Direct Bilirubin 0.0 (0.0-0.2) mg/dL AST 8 L (13-39) Units/L ALT 6 L (7-52) Units/L Alkaline Phosphatase 77 (34-104) Units/L Albumin 2.7 L (3.5-5.7) g/dL Urine 10/14/18 Range/Units 21:24 Urine Color Dark Yellow (Yellow) Urine Clarity Turbid A (Clear) Urine pH 5.5 (5.0-8.0) pH Units Ur Specific [place] 1.018 (1.010-1.025) Urine Protein 100 H (Neg-Trace) mg/dL Urine Glucose (UA) Normal (Normal) mg/dL - Impressions ITS Impressions Chest X-Ray 10/14/18 21:23 IMPRESSION: Stable chest without acute process. D/ / Lamin Wall MD / Lamin Wall MD Interpreting Provider: Lamin Wall MD Abdomen/Pelvis CT 10/14/18 21:24 IMPRESSION: There is unchanged thickening of the wall of the urinary bladder. There is perivesical fat stranding. Correlate for possible acute cystitis. There is unchanged thickening of the wall of the rectum with perirectal fat stranding. There are unchanged decubitus ulcers involving the sacrum, both ischial tuberosities and left greater trochanter with adjacent bone changes consistent with osteomyelitis. Debris or mucous plugs filling the left lower lobe bronchi. This may represent debris from aspiration and/or mucous plugs. D/ / Scout Loomis MD / Scout Loomis MD Interpreting Provider: Scout Loomis MD - Assessment and plan (1) Sepsis Current Visit: Yes Status: Acute Assessment and plan: Mr. Carrasco is a 53 year old male with PMHx significant for paraplegia, chronic osteomyelitis, multiple decubitus ulcers, chronic anemia, mood disorders, epidural abscess, COPD, GERD who presents to the ED from [facility] due to abdominal pain/ back pain, and elevated HR with fever. Pt met sepsis criteria on admission: Initial Vitals in the ED: T = 98.6; HR = 126; RR = 16; BP = 148/72; O2 on RA = 98% CBC: WBC = 20.3; Hb/Hct = 8.6/27.9; Plts = 226 Lactic Acid = 1.1 UA: Dark, Turbid urine; Large blood; Positive Nitrites; Large Leuk Est; WBC TNTC --> Pending Urine Culture CXR: Stable without acute process Status post IVF, IV Zosyn in the ED. Sepsis likely secondary to UTI, possibly secondary to sacral decubitus ulcers. Remains afebrile currently. Tachycardia has resolved PLAN: Cont IVF Cont Zosyn - previous urine cultures grew Proteus Mirabilis which is susceptible to Zosyn Follow up blood cultures; follow up urine culture - adjustment treatment acco rdingly Monitor vitals; monitor for fevers CBC in the AM Treat empirically based on previous urine cultures Wound care recommendations appreciated Qualifiers: Sepsis type: sepsis due to unspecified organism Qualified Code(s): A41.9 - Sepsis, unspecified organism (2) UTI (urinary tract infection) Current Visit: No Status: Ruled-out Assessment and plan: ED physician Dr. Eagle noted that patient's Mccallum catheter was clamped, and when it was unclamped, pt immediately had nearly 1.5L cloudy, purulent urine output. Afterwards, pt reported relief of abdominal symptoms. Hx of multiple UTIs in the past, with multiple admissions to rule out sepsis. UA: Dark, Turbid urine; Large blood; Positive Nitrites; Large Leuk Est; WBC TNTC --> Pending Urine Culture Most recent urine cultures (09/09/18) have grown Proteus Mirabilis: sensitive only to Carbapenems and Zosyn Previous Urine Cultures (12/29/17) have grown MRSA: Pansensitive except Bactrim and oxacillin PLAN: Cont IVF Cont Zosyn - previous urine cultures have grown proteus mirabilis which is susceptible to zosyn Follow up urine cultures Cont with indwelling mccallum catheter Monitor Is & Os Qualifiers: Urinary tract infection type: acute cystitis Hematuria presence: with hematuria Qualified Code(s): N30.01 - Acute cystitis with hematuria (3) Pressure ulcer Current Visit: No Status: Acute Assessment and plan: Hx of multiple decubitus ulcers in various stages PLAN: Wound care recommendations appreciated Qualifiers: Pressure injury location: sacral region Pressure injury stage: stage 4 Qualified Code(s): L89.154 - Pressure ulcer of sacral region, stage 4 (4) COPD (chronic obstructive pulmonary disease) Current Visit: No Status: Chronic Assessment and plan: O2 sats 94-97 on room air PE: CTAB, no wheezes, rales, rhonchi PLAN: Cont home meds Duonebs PRN Qualifiers: COPD type: emphysema Emphysema type: unspecified Qualified Code(s): J43.9 - Emphysema, unspecified (5) Hepatitis C Current Visit: No Status: Chronic Assessment and plan: Chronic PLAN: Follow up outpatient Qualifiers: Viral hepatitis chronicity: unspecified Hepatic coma status: without hepatic coma Qualified Code(s): B19.20 - Unspecified viral hepatitis C without hepatic coma (6) Osteomyelitis of sacrum Current Visit: No Status: Chronic Assessment and plan: Chronic (7) Hypomagnesemia Current Visit: Yes Status: Acute Assessment and plan: Mg in ED = 1.1 Replaced PLAN: Monitor Mg Replete as needed (8) Anemia Current Visit: No Status: Chronic Assessment and plan: Chronic Anemia Hb/Hct on admission = 8.6/27.9 PLAN: Cont to monitor CBC Qualifiers: Anemia type: unspecified type Qualified Code(s): D64.9 - Anemia, unspecified (9) Mood disorder Current Visit: No Status: Acute Assessment and plan: Cont home meds (10) Paraplegia Current Visit: No Status: Chronic Assessment and plan: Chronic (11) DVT prophylaxis Current Visit: No Status: Acute Assessment and plan: Heparin SQ BID - Time Spent With Patient Total time spent is greater than 50% in coordination of care (as documented) at patient's floor/unit and/or counseling patient: less than 15 minutes
[2018-10-15] MEDS ORDERED: Naloxone 0.4 MG/ML INJ IVP PRN (02:35)
[2018-10-15 04:59] LABS: Basophils % 0.1 %; Eosinophils # 0.4 K/mcL (0.0-0.6); Eosinophils % 1.8 %; Hematocrit 25.5 % (37.5-50.1); Hemoglobin 7.9 g/dL (12.9-16.9); Immature Granulocytes % 0.7 % (0-4); Lymphocytes # 2.2 K/mcL (0.6-4.6); Lymphocytes % 11.1 %; Mean Corpuscular Hemoglobin 25.3 pg (28.0-33.3); Mean Corpuscular Volume 81.7 fL (83.0-100.0); Monocytes # 1.6 K/mcL (0.0-1.3); Monocytes % 7.9 %; Neutrophils # 15.7 K/mcL (1.6-8.9); Platelet Count 202 K/mcL (140-400); Red Blood Count 3.12 M/mcL (4.19-5.50); Red Cell Distribution Width 15.9 % (11.5-14.5); Segmented Neutrophils % 78.4 %
[2018-10-15 05:14] LABS: BUN/Creatinine Ratio 26 (6-26); Blood Urea Nitrogen 18 mg/dL (6-20); Carbon Dioxide 27 mEq/L (23-29); Chloride 101 mEq/L (98-107); Glucose 99 mg/dL (70-105); Osmolality,Calculated 280 (280-300); Potassium 3.9 mEq/L (3.5-5.1); Sodium 134 mEq/L (136-145); eGFR For Non-African Americans > 60 (> 60)
[2018-10-15] MEDS: *HR* Heparin 5,000 UNIT/ML VIAL SQ SCH ×2 (05:38→17:19)
[2018-10-15] MEDS: Budesonide/Formoterol 80/4.5 MDI IH SCH ×2 (08:26→20:27)
[2018-10-15] MEDS: Ipratropium/Albuterol Neb 3 ML IH SCH ×5 (08:26→23:30)
[2018-10-15] MEDS: Valproic Acid 250 MG CAPSULE PO SCH ×3 (08:37→16:31)
[2018-10-15] MEDS: Piperacillin/Tazobactam 3.375 GM in 0.9 % Sodium Chloride Mini Bag 100 ML IVPB SCH ×2 (08:38→15:56)
--- NOTE | 2018-10-15 09:18 | Electrocardiograph Report ---
[address] [place], [place] [address] Test Date: 2018-10-14 Pat Name: Fausto Carrasco Department: [id number] Room: 2A36 Gender: M [employer]: : 1965 Requested By: Aldair Eagle Order Number: [id number] Reading MD: Duy Lock Measurements Intervals [place] Rate: 126 P: 76 [place]: 148 QRS: 45 QRSD: 84 T: 72 QT: 292 QTc: 423 Interpretive Statements Sinus tachycardia Poor R-wave progression Electronically Signed On 10-15-2018 9:16:19 EST by Duy Lock
[2018-10-15] MEDS: 0.9 % Sodium Chloride 1,000 ML IVC SCH (14:11)
--- NOTE | 2018-10-15 14:24 | Event Note ---
Date of Encounter: 10/15/18 Time of Encounter: 14:15 I have seen and evaluated the patient at bedside. patient in mild distress due to lower back pain. he denies nausea, vomiting, abdominal pain, fever/chills Physical exam Vitals: reviewed General: Alert and orientedx4. In mild distress due to back pain Skin: multiple stage IV sacral ulcers with foul smelling secretion. HEENT: EOM, pupils equal, round and reactive. Cardiovascular: RRR, Normal S1 & S2, no rubs, murmurs or gallops. Lungs: Clear to auscultation bilaterally, no wheezes or crackles. Abdomen: Soft, non-tender, no rigidity. Extremities: Paraplejic. Neurological: Normal cognition. Rest of the physical exam is non contributory Assessment and Plan: 1. Sepsis most likely due to UTI vs sacral decubitus ulcer 2. Multiple Stage IV sacral ulcers 3. Urinary tract infection 4. Anemia 5. COPD 6. Hx of Hep C 7. VTE prophylaxis 8. Osteomyelitis of the schial tuberosities and left greater trochante Plan: IV fluids increased to 125mls/hr Nebs PRN started on Vancomycin per phamacy dosing due to Osteo Surgery consulted ID consulted Heparin subQ for DVT prophylaxis Wound care wound culture and gram stain.
--- NOTE | 2018-10-15 15:26 | General Surgery Consult Note ---
<Katrin Lambert - Last Filed: 10/15/18 15:37> Date of Encounter: 10/15/18 Time of Encounter: 15:20 Assessment and Plan (1) Pressure ulcer of sacral region, stage 4 Current Visit: Yes Status: Chronic No acute surgical intervention indicated at this time. Patient has been seen in July and September by the surgical service. He was recommended to follow-up in wound care but has yet to do so. For the sacral and gluteal decubitus ulcers, he is recommended to have the areas packed with Dakin's soaked Kerlix. Cover with ABD pads. Tape to secure. Follow-up in wound care in one week after d/c (2) Pressure ulcer of both feet, unstageable Current Visit: No Status: Acute Apply sanytl, ncikle thick. Cover with saline moistened gauze. Wrap in Kerlix. Keep feet in heel protectors. Pressure reduction mattress (3) Monserrat infection of genital region Current Visit: Yes Status: Acute Apply miconazole 2% extra thick to the scrotum. Elevate scrotum with size 7 or 8 tube gauze or a towel (4) Osteomyelitis Current Visit: No Status: Chronic management per primary team Qualifiers: Osteomyelitis type: other Osteomyelitis location: multiple sites Qualified Code(s): M86.8X0 - Other osteomyelitis, multiple sites History of Present Illness Consult date: 10/15/18 (Dr. Brock Lyle) Reason for consult: other Requesting physician: Dylon Torres History of present illness: Surgery has been consult did for recommendations regarding wound care. Patient's past medical, surgical, social, and family history's have been reviewed and updated were indicated. Fausto is a 52-year-old male who is been seen by [facility] in July and September 2018 for extensive sacral decubitus ulcers (stage IV, history of osteomyelitis, history of paraplegia, and bilateral foot ulcers. He was last seen September 18, 2018 at which time he was recommended to continue sample to the bilateral foot ulcers and Dakins to the sacreal ulcers, follow-up in wound care in one week. The patient did not follow-up in wound care. Patient is paraplegic secondary to a fall down a flight of stairs leading to a spinal cord injury and residual leg weakness. He had a colostomy placed at [facility] a few months ago, admits to previous oral and IV drug use but hasn't been using recently. He from [facility] due to abdominal and back pain, elevated heart rate, and fever. He was noted to have a urinary tract infection. A CT scan of the abdomen and pelvis without contrast noted unchanged thickening of the wall bladder, unchanged decubitus ulcers involving the sacrum, both of the ischial tuberousities, left greater trochanter, with adjacent bone changes consistent with osteomyelitis. Jasmin or mucous plug was also noted in the left lower bronchi. He was admitted for spesis. He denies pain in the decubitus ulcers, headache, dizziness, chills, nausea, vomiting, changes in bowel habits. Past Med Surg Social Fam HX - Past Medical History Source: patient, old records reviewed Medical history: COPD, GERD, hepatitis, other Additional medical history: spinal stenosis, anemia, encephalopathy, GI hemorrhage,MRSA, osteomyelitis, pressure ulcer Psychiatric history: bipolar, schizophrenia - Past Surgical History Surgical History: non-contributory Additional surgical history: back/spine surgery, evacuation of epidural abscess, I&D, C5-T1 laminectomy December 2017 - Social History Smoking Status: Current every day smoker Packs per day: 1/2 Smokeless Tobacco Status: No Alcohol use: none Drug use: none - Family History Father Living Status: Hx Family Cardiac Disorders: Yes ([place]) Mother Living Status: Hx Family Cancer: Yes Medications and Allergies RX: Albuterol Neb [Proventil Neb] 2.5 mg IH Q6H PRN 07/01/18 [History] RX: Baclofen [Lioresal] 10 mg PO TID 07/01/18 [History] RX: Famotidine [Heartburn Prevention] 20 mg PO Q12H 07/01/18 [History] RX: Gabapentin [Neurontin] 600 mg PO TID 07/01/18 [History] RX: Heparin 5,000 unit SQ Q8H 07/01/18 [History] RX: Iron Polysaccharide Complex [Ferrex 150] 150 mg PO DAILY 07/01/18 [History] RX: Nortriptyline [Pamelor] 25 mg PO HS 07/01/18 [History] RX: Ascorbic Acid [Vitamin C] 500 mg PO BID 07/28/18 [History] RX: Budesonide/Formoterol 80/4.5 [Symbicort 80/4.5] 2 puff IH BID 07/28/18 [History] RX: Lactulose [Enulose] 20 gm PO TIDWM 07/28/18 [History] RX: Lidocaine [Aspercreme] 1 each TP DAILY 07/28/18 [History] RX: Melatonin [Melatin] 3 mg PO HS 07/28/18 [History] RX: Multivitamin [Multivitamins] 1 each PO DAILY 07/28/18 [History] RX: OLANZapine [Zyprexa] 10 mg PO QPM 07/28/18 [History] RX: Zinc Sulfate 220 mg PO BID 07/28/18 [History] RX: Acetaminophen [Tylenol] 650 mg PO Q8H PRN 08/04/18 [History] RX: Tramadol HCl [Ultram] 50 mg PO Q8H PRN 10 Days #30 tablet 08/07/18 [Rx] RX: Amino Acids/Protein Hydrolys [Pro-Stat Awc Liquid] 30 ml PO BID 09/09/18 [History] RX: Buspirone HCl [Buspar] 5 mg PO TID 09/09/18 [History] Valproic Acid [Depakene] 500 mg PO Q8H 09/18/18 [History] RX: Doxycycline Hyclate 100 mg PO BID 10/15/18 [History] Allergy/AdvReac Type Severity Reaction Status Date / Time No Known Allergies Allergy Verified 08/02/18 22:22 Review of Systems All systems PM: reviewed and no additional remarkable complaints except as stated All systems PM: The remainder of the systems were reviewed and are negative General Surgery Exam Initial Vital Signs Temp Pulse Resp BP Pulse Ox 98.6 F 126 16 148/72 98 10/14/18 21:14 10/14/18 21:14 10/14/18 21:14 10/14/18 21:14 10/14/18 21:14 - General physical appearance no distress, chronically ill - Neck trachea midline - Respiratory normal respiratory effort - Cardiovascular Cardiovascular exam: Present: RRR - Abdomen Abdomen general surgery: Present: bowel sounds present, soft, non tender - Integumentary Integumentary general surgery: Present: other (Extensive decubiti, see wound measurements per RN) - Neurologic Present: other (paraplegia) - Musculoskeletal Present: other (paraplegia) - Psychiatric Psychiatric general surgery: Present: appropriate Exam Initial Vital Signs Temp Pulse Resp BP Pulse Ox 98.6 F 126 16 148/72 98 10/14/18 21:14 10/14/18 21:14 10/14/18 21:14 10/14/18 21:14 10/14/18 21:14 Results - Labs 10/15/18 04:40 10/15/18 04:40 Abnormal lab results WBC 20.0 K/mcL (4.3-11.1) H 10/15/18 04:40 RBC 3.12 M/mcL (4.19-5.50) L 10/15/18 04:40 Hgb 7.9 g/dL (12.9-16.9) L 10/15/18 04:40 Hct 25.5 % (37.5-50.1) L 10/15/18 04:40 MCV 81.7 fL (83.0-100.0) L 10/15/18 04:40 MCH 25.3 pg (28.0-33.3) L 10/15/18 04:40 MCHC 31.0 g/dL (31.6-35.5) L 10/15/18 04:40 RDW 15.9 % (11.5-14.5) H 10/15/18 04:40 MPV 9.0 fL (9.4-12.4) L 10/15/18 04:40 Neutrophils # 15.7 K/mcL (1.6-8.9) H 10/15/18 04:40 Monocytes # 1.6 K/mcL (0.0-1.3) H 10/15/18 04:40 PT 15.3 Seconds (9.4-12.1) H 10/14/18 21:24 Sodium 134 mEq/L (136-145) L 10/15/18 04:40 Magnesium 1.3 mg/dL (1.6-2.6) L 10/15/18 04:40 AST 8 Units/L (13-39) L 10/14/18 21:24 ALT 6 Units/L (7-52) L 10/14/18 21:24 Albumin 2.7 g/dL (3.5-5.7) L 10/14/18 21:24 Globulin 4.0 g/dL (2.4-3.5) H 10/14/18 21:24 Albumin/Globulin Ratio 0.7 (1.1-2.2) L 10/14/18 21:24 Urine Clarity Turbid (Clear) A 10/14/18 21:24 Urine Protein 100 mg/dL (Neg-Trace) H 10/14/18 21:24 Urine Ketones Trace mg/dL (Negative) H 10/14/18 21:24 Urine Blood Large (Negative) H 10/14/18 21:24 Urine Nitrite Positive (Negative) A 10/14/18 21:24 Ur Leukocyte Esterase Large (Negative) H 10/14/18 21:24 Urine Microscopic RBC 5-15 per hpf (0-3) H 10/14/18 21:24 Urine Microscopic WBC TNTC per hpf (0-3) H 10/14/18 21:24 Urine Bacteria Moderate per hpf (None-Few) H 10/14/18 21:24 Ur Culture Indicated? YES (NO) A 10/14/18 21:24 Diabetes panel 10/14/18 10/15/18 Range/Units 21:24 04:40 Sodium 134 L 134 L (136-145) mEq/L Potassium 4.4 3.9 (3.5-5.1) mEq/L Chloride 99 101 (98-107) mEq/L Carbon Dioxide 27 27 (23-29) mEq/L BUN 19 18 (6-20) mg/dL Creatinine 0.86 0.70 (0.70-1.30) mg/dL Glucose 107 H 99 (70-105) mg/dL Calcium 9.1 9.0 (8.6-10.3) mg/dL AST 8 L (13-39) Units/L ALT 6 L (7-52) Units/L Alkaline Phosphatase 77 (34-104) Units/L Albumin 2.7 L (3.5-5.7) g/dL Calcium panel 10/14/18 10/15/18 Range/Units 21:24 04:40 Calcium 9.1 9.0 (8.6-10.3) mg/dL Phosphorus 2.9 (2.7-4.5) mg/dL Albumin 2.7 L (3.5-5.7) g/dL Pituitary panel 10/14/18 10/15/18 Range/Units 21:24 04:40 Sodium 134 L 134 L (136-145) mEq/L Potassium 4.4 3.9 (3.5-5.1) mEq/L Chloride 99 101 (98-107) mEq/L Carbon Dioxide 27 27 (23-29) mEq/L BUN 19 18 (6-20) mg/dL Creatinine 0.86 0.70 (0.70-1.30) mg/dL Glucose 107 H 99 (70-105) mg/dL Calcium 9.1 9.0 (8.6-10.3) mg/dL Adrenal panel 10/14/18 10/15/18 Range/Units 21:24 04:40 Sodium 134 L 134 L (136-145) mEq/L Potassium 4.4 3.9 (3.5-5.1) mEq/L Chloride 99 101 (98-107) mEq/L Carbon Dioxide 27 27 (23-29) mEq/L BUN 19 18 (6-20) mg/dL Creatinine 0.86 0.70 (0.70-1.30) mg/dL Glucose 107 H 99 (70-105) mg/dL Calcium 9.1 9.0 (8.6-10.3) mg/dL Total Bilirubin 0.4 (0.3-1.0) mg/dL AST 8 L (13-39) Units/L ALT 6 L (7-52) Units/L Alkaline Phosphatase 77 (34-104) Units/L Albumin 2.7 L (3.5-5.7) g/dL All other labs normal. - Imaging CT scan - abdomen: report reviewed CT scan - pelvis: report reviewed Consult Discharge Plan - Plan Referrals: NONE,PCP [Primary Care Provider] - ([facility]) <Brock Lyle - Last Filed: 10/16/18 19:24> Date of Encounter: 10/16/18 Assessment and Plan (1) Pressure ulcer of sacral region, stage 4 Current Visit: Yes Status: Chronic (2) Pressure ulcer of both feet, unstageable Current Visit: No Status: Acute (3) Osteomyelitis Current Visit: No Status: Chronic Qualifiers: Osteomyelitis type: other Osteomyelitis location: multiple sites Qualified Code(s): M86.8X0 - Other osteomyelitis, multiple sites (4) Monserrat infection of genital region Current Visit: Yes Status: Acute Review of Systems All systems PM: The remainder of the systems were reviewed and are negative General Surgery Exam Initial Vital Signs Temp Pulse Resp BP Pulse Ox 98.6 F 126 16 148/72 98 10/14/18 21:14 10/14/18 21:14 10/14/18 21:14 10/14/18 21:14 10/14/18 21:14 Exam Initial Vital Signs Temp Pulse Resp BP Pulse Ox 98.6 F 126 16 148/72 98 10/14/18 21:14 10/14/18 21:14 10/14/18 21:14 10/14/18 21:14 10/14/18 21:14 Results - Labs 10/16/18 15:03 10/16/18 04:00 Abnormal lab results WBC 20.0 K/mcL (4.3-11.1) H 10/15/18 04:40 RBC 3.12 M/mcL (4.19-5.50) L 10/15/18 04:40 Hgb 7.9 g/dL (12.9-16.9) L 10/15/18 04:40 Hct 25.5 % (37.5-50.1) L 10/15/18 04:40 MCV 81.7 fL (83.0-100.0) L 10/15/18 04:40 MCH 25.3 pg (28.0-33.3) L 10/15/18 04:40 MCHC 31.0 g/dL (31.6-35.5) L 10/15/18 04:40 RDW 15.9 % (11.5-14.5) H 10/15/18 04:40 MPV 9.0 fL (9.4-12.4) L 10/15/18 04:40 Neutrophils # 15.7 K/mcL (1.6-8.9) H 10/15/18 04:40 Monocytes # 1.6 K/mcL (0.0-1.3) H 10/15/18 04:40 PT 15.3 Seconds (9.4-12.1) H 10/14/18 21:24 Sodium 134 mEq/L (136-145) L 10/15/18 04:40 Magnesium 1.3 mg/dL (1.6-2.6) L 10/15/18 04:40 AST 8 Units/L (13-39) L 10/14/18 21:24 ALT 6 Units/L (7-52) L 10/14/18 21:24 Albumin 2.7 g/dL (3.5-5.7) L 10/14/18 21:24 Globulin 4.0 g/dL (2.4-3.5) H 10/14/18 21:24 Albumin/Globulin Ratio 0.7 (1.1-2.2) L 10/14/18 21:24 Urine Clarity Turbid (Clear) A 10/14/18 21:24 Urine Protein 100 mg/dL (Neg-Trace) H 10/14/18 21:24 Urine Ketones Trace mg/dL (Negative) H 10/14/18 21:24 Urine Blood Large (Negative) H 10/14/18 21:24 Urine Nitrite Positive (Negative) A 10/14/18 21:24 Ur Leukocyte Esterase Large (Negative) H 10/14/18 21:24 Urine Microscopic RBC 5-15 per hpf (0-3) H 10/14/18 21:24 Urine Microscopic WBC TNTC per hpf (0-3) H 10/14/18 21:24 Urine Bacteria Moderate per hpf (None-Few) H 10/14/18 21:24 Ur Culture Indicated? YES (NO) A 10/14/18 21:24 Diabetes panel 10/14/18 10/15/18 Range/Units 21:24 04:40 Sodium 134 L 134 L (136-145) mEq/L Potassium 4.4 3.9 (3.5-5.1) mEq/L Chloride 99 101 (98-107) mEq/L Carbon Dioxide 27 27 (23-29) mEq/L BUN 19 18 (6-20) mg/dL Creatinine 0.86 0.70 (0.70-1.30) mg/dL Glucose 107 H 99 (70-105) mg/dL Calcium 9.1 9.0 (8.6-10.3) mg/dL AST 8 L (13-39) Units/L ALT 6 L (7-52) Units/L Alkaline Phosphatase 77 (34-104) Units/L Albumin 2.7 L (3.5-5.7) g/dL Calcium panel 10/14/18 10/15/18 Range/Units 21:24 04:40 Calcium 9.1 9.0 (8.6-10.3) mg/dL Phosphorus 2.9 (2.7-4.5) mg/dL Albumin 2.7 L (3.5-5.7) g/dL Pituitary panel 10/14/18 10/15/18 Range/Units 21:24 04:40 Sodium 134 L 134 L (136-145) mEq/L Potassium 4.4 3.9 (3.5-5.1) mEq/L Chloride 99 101 (98-107) mEq/L Carbon Dioxide 27 27 (23-29) mEq/L BUN 19 18 (6-20) mg/dL Creatinine 0.86 0.70 (0.70-1.30) mg/dL Glucose 107 H 99 (70-105) mg/dL Calcium 9.1 9.0 (8.6-10.3) mg/dL Adrenal panel 10/14/18 10/15/18 Range/Units 21:24 04:40 Sodium 134 L 134 L (136-145) mEq/L Potassium 4.4 3.9 (3.5-5.1) mEq/L Chloride 99 101 (98-107) mEq/L Carbon Dioxide 27 27 (23-29) mEq/L BUN 19 18 (6-20) mg/dL Creatinine 0.86 0.70 (0.70-1.30) mg/dL Glucose 107 H 99 (70-105) mg/dL Calcium 9.1 9.0 (8.6-10.3) mg/dL Total Bilirubin 0.4 (0.3-1.0) mg/dL AST 8 L (13-39) Units/L ALT 6 L (7-52) Units/L Alkaline Phosphatase 77 (34-104) Units/L Albumin 2.7 L (3.5-5.7) g/dL All other labs normal. - Attending Attestation patient seen and examined. i have reviewed all labs, imaging, and notes. i agree with the above assessment and plan.
[2018-10-15] MEDS: Famotidine 20 MG/2 ML VIAL IVP SCH (17:18)
[2018-10-15] MEDS: Miconazole 2% ointment 114 GM TUBE TP SCH (20:04)
[2018-10-15] MEDS: OLANZapine 10 MG TAB.RAPDIS PO SCH (20:04)
[2018-10-15] MEDS: traMADol 50 MG TABLET PO PRN (22:02)
[2018-10-16] MEDS: 0.9 % Sodium Chloride 1,000 ML IVC SCH ×4 (00:03→21:31)
[2018-10-16] MEDS: Piperacillin/Tazobactam 3.375 GM in 0.9 % Sodium Chloride Mini Bag 100 ML IVPB SCH ×4 (00:03→23:49)
[2018-10-16] MEDS: Ipratropium/Albuterol Neb 3 ML IH SCH ×7 (03:57→23:10)
[2018-10-16] MEDS: *HR* Heparin 5,000 UNIT/ML VIAL SQ SCH (05:27)
[2018-10-16] MEDS: Famotidine 20 MG/2 ML VIAL IVP SCH ×2 (05:27→16:44)
[2018-10-16 05:56] LABS: Basophils % 0.1 %; Eosinophils # 0.3 K/mcL (0.0-0.6); Eosinophils % 2.6 %; Hematocrit 24.2 % (37.5-50.1); Hemoglobin 7.1 g/dL (12.9-16.9); Immature Granulocytes % 0.7 % (0-4); Lymphocytes # 1.8 K/mcL (0.6-4.6); Lymphocytes % 15.4 %; Mean Corpuscular HGB Conc 29.3 g/dL (31.6-35.5); Mean Corpuscular Hemoglobin 24.3 pg (28.0-33.3); Mean Corpuscular Volume 82.9 fL (83.0-100.0); Monocytes # 0.7 K/mcL (0.0-1.3); Monocytes % 5.8 %; Neutrophils # 8.6 K/mcL (1.6-8.9); Platelet Count 190 K/mcL (140-400); Red Blood Count 2.92 M/mcL (4.19-5.50); Red Cell Distribution Width 16.1 % (11.5-14.5); Segmented Neutrophils % 75.4 %
[2018-10-16 06:04] LABS: BUN/Creatinine Ratio 17 (6-26); Blood Urea Nitrogen 12 mg/dL (6-20); Calcium 8.4 mg/dL (8.6-10.3); Carbon Dioxide 26 mEq/L (23-29); Chloride 107 mEq/L (98-107); Glucose 91 mg/dL (70-105); Magnesium 1.3 mg/dL (1.6-2.6); Osmolality,Calculated 287 (280-300); Phosphorous 2.7 mg/dL (2.7-4.5); Potassium 3.7 mEq/L (3.5-5.1); Sodium 139 mEq/L (136-145); eGFR For Non-African Americans > 60 (> 60)
[2018-10-16] MEDS: traMADol 50 MG TABLET PO PRN (06:09)
[2018-10-16] MEDS: Budesonide/Formoterol 80/4.5 MDI IH SCH ×2 (07:47→19:59)
[2018-10-16] MEDS: Valproic Acid 250 MG CAPSULE PO SCH ×3 (08:09→16:19)
[2018-10-16] MEDS: Miconazole 2% ointment 114 GM TUBE TP SCH ×2 (08:22→20:56)
[2018-10-16] MEDS: Gabapentin 300 MG CAPSULE PO SCH ×3 (08:24→20:56)
--- NOTE | 2018-10-16 12:39 | Infectious Disease Consult ---
Date of Encounter: 10/16/18 Time of Encounter: 12:07 Assessment and Plan (1) Sepsis Status: Acute Assessment and plan: had 2 sirs criteria on admission likely secondary to osteomyelitis or UTI or both Qualifiers: Sepsis type: sepsis due to unspecified organism Qualified Code(s): A41.9 - Sepsis, unspecified organism (2) Osteomyelitis of coccyx Status: Acute Assessment and plan: causative organism proteus MDR history of MRSA currently on vancomycin/zosyn continue current antibiotics duration of treatment depends on clinical picture goal vanco about 15 monitor labs and for drug toxicity check baseline ESR/CrP consider transfer to tertiary center for plastic surgery service. Will defer decision to the hospitalist team (3) Urinary tract infection Status: Acute Assessment and plan: causative organism unknown on vancomycin and zosyn await cultures to finalize sepsis improved Qualifiers: Urinary tract infection type: site unspecified Hematuria presence: without hematuria Qualified Code(s): N39.0 - Urinary tract infection, site not specified (4) Decubitus ulcer, stage 4 with infection Status: Acute (5) Pressure ulcer of sacral region, stage 4 Status: Chronic (6) Epidural abscess Status: Acute Assessment and plan: h/o with mrsa treated with IV vancomycin on doxycycline suppresive therapy indefinitely continue doxycycline 100 mg po bid (7) Sacral decubitus ulcer Status: Acute Qualifiers: Pressure injury stage: stage 4 Qualified Code(s): L89.154 - Pressure ulcer of sacral region, stage 4 (8) Paraplegia Status: Chronic Infectious Disease HPI - Data of Consult Requesting Physician: Dylon Torres MD Primary Care Provider: PCP NONE - Consult Narrative Reason for consult: "Osteomyelitis. Sepsis" History of present illness: Mr. Carrasco is a 53 year old male Patient is a 53-year-old gentleman who presented to [facility] on 10/14/2018 with weakness of both lower extremities and a sacral ulcer stage IV, we are consulted today for sepsis and osteomyelitis. Patient is a 53-year-old gentleman who has an extensive past medical history including bipolar disorder, schizophrenia, hepatitis, chronic wound secondary to paraplegia and epidural abscess and history of MRSA in the left heel and the right heel on the left buttock who was recently seen by us on 09/18/2018 for sepsis like picture and was noted to have possible aspiration pneumonia, and osteomyelitis of the coccyx, ischium. Patient was discharged on Invanz, vancomycin and doxycycline and was transferred to [facility] for plastics evaluate. Not sure what was done [facility] but we will try to get the records. This time, per medical records, patient apparently has been having weakness of both lower extremity, abdominal pain and back pain, elevated heart rate any fever. Patient was transferred from [facility] to the emergency department. Since admission, patient has been afebrile, tachycardic and tachypneic times. Presenting labs revealed a WBC of 20,000 with 78% neutrophils no bands. Chemistry revealed a BUN of 19 creatinine 0.86, lactic acid 1.1 normal AST ALT a nd alkaline phosphatase. A urinalysis was obtained and it showed pyuria and cultures were sent. Patient also had a MRSA screen which came back negative. Blood cultures 2 were obtained on 10/06/2018 and are no growth to date. CT abdomen and pelvis 10/14/2018: There is unchanged thickening of the wall of the urinary bladder. There is perivascular fat stranding correlate with possible acute cystitis. There is unchanged thickening of the wall of the rectum with perirectal fat stranding. There are unchanged decubitus ulcers involving the sacrum, both ischial tuberosities and left greater trochanter with adjacent bone changes consistent with osteomyelitis. Debris and mucus plugging the left lower lobe bronchi. Patient was started on vancomycin and Zosyn and we were asked to evaluate the patient make further recommendations. Patient appears comfortable lying in bed. Review of system is limited. He tells me that he did not go to [facility] and [facility]. Patient abdominal and back pain appears to be under control. CC: Dylon Torres MD Past Med Surg Social Fam HX - Past Medical History Medical history: COPD, GERD, hepatitis, other Additional medical history: spinal stenosis, anemia, encephalopathy, GI hemorrhage,MRSA, osteomyelitis, pressure ulcer Psychiatric history: bipolar, schizophrenia - Past Surgical History Surgical History: non-contributory Additional surgical history: back/spine surgery, evacuation of epidural abscess, I&D, C5-T1 laminectomy December 2017 - Social History Smoking Status: Current every day smoker Packs per day: 1/2 Smokeless Tobacco Status: No Alcohol use: none Drug use: none - Family History Father Living Status: Hx Family Cardiac Disorders: Yes ([place]) Mother Living Status: Hx Family Cancer: Yes Infectious Disease-CN:Meds Albuterol Neb [Proventil Neb] 2.5 mg IH Q6H PRN 07/01/18 [History] Baclofen [Lioresal] 10 mg PO TID 07/01/18 [History] Famotidine [Heartburn Prevention] 20 mg PO Q12H 07/01/18 [History] Gabapentin [Neurontin] 600 mg PO TID 07/01/18 [History] Heparin 5,000 unit SQ Q8H 07/01/18 [History] Iron Polysaccharide Complex [Ferrex 150] 150 mg PO DAILY 07/01/18 [History] Nortriptyline [Pamelor] 25 mg PO HS 07/01/18 [History] Ascorbic Acid [Vitamin C] 500 mg PO BID 07/28/18 [History] Budesonide/Formoterol 80/4.5 [Symbicort 80/4.5] 2 puff IH BID 07/28/18 [History] Lactulose [Enulose] 20 gm PO TIDWM 07/28/18 [History] Lidocaine [Aspercreme] 1 each TP DAILY 07/28/18 [History] Melatonin [Melatin] 3 mg PO HS 07/28/18 [History] Multivitamin [Multivitamins] 1 each PO DAILY 07/28/18 [History] OLANZapine [Zyprexa] 10 mg PO QPM 07/28/18 [History] Zinc Sulfate 220 mg PO BID 07/28/18 [History] Acetaminophen [Tylenol] 650 mg PO Q8H PRN 08/04/18 [History] Tramadol HCl [Ultram] 50 mg PO Q8H PRN 10 Days #30 tablet 08/07/18 [Rx] Amino Acids/Protein Hydrolys [Pro-Stat Awc Liquid] 30 ml PO BID 09/09/18 [History] Buspirone HCl [Buspar] 5 mg PO TID 09/09/18 [History] Valproic Acid [Depakene] 500 mg PO Q8H 09/18/18 [History] Doxycycline Hyclate 100 mg PO BID 10/15/18 [History] Allergy/AdvReac Type Severity Reaction Status Date / Time No Known Allergies Allergy Verified 08/02/18 22:22 Review of systems: 10 point review of systems done, negative other for what is mentioned in history of present illness. Exam - Constitutional Vitals: Temp Pulse Resp BP Pulse Ox 98.1 F 85 16 117/69 96 10/16/18 11:29 10/16/18 11:29 10/16/18 11:29 10/16/18 11:29 10/16/18 11:29 General appearance: cooperative, no acute distress, no febrile - Head Head exam: Present: atraumatic, normocephalic - Eye Eye exam: Present: EOMI, PERRL, sclera anicteric - ENT ENT exam: Present: mucous membranes dry Additional comments: No oral lesions - Neck Neck exam: Present: full ROM. Absent: meningismus - Respiratory Additional comments: Her sounds audible both lung arnold. Poor inspiratory effort. - Cardiovascular Cardiovascular exam: Present: RRR, +S1, +S2 - GI/Abdominal GI/Abdominal exam: Present: normal bowel sounds, soft. Absent: tenderness - Extremities Exam Additional comments: Muscle wasting and contractures lower extremities. Multiple decubitus ulcers a different healing. No obvious pus or foul smelling or surrounding cellulitis. - Neurological Exam Neurological exam: Present: alert, oriented X3 Additional comments: Paraplegic - Psychiatric Psychiatric exam: Present: normal affect, normal mood - Skin Skin exam: Present: normal color. Absent: rash Infectious Disease CN: Results - Labs CBC & Chem 7: 10/16/18 15:03 10/16/18 04:00 Cultures: Cultures 10/14/18 21:24 Blood Culture - Preliminary Peripheral Venipuncture Culture is incubating and being continuously monitor ed for growth. Final report to follow. 10/14/18 21:24 Blood Culture - Preliminary Peripheral Venipuncture Culture is incubating and being continuously monitored for growth. Final report to follow. Serology: Serology 10/15/18 10/14/18 Range/Units 11:21 21:24 Urine Color Dark Yellow (Yellow) Urine Clarity Turbid A (Clear) Urine pH 5.5 (5.0-8.0) pH Units Ur Specific [place] 1.018 (1.010-1.025) Urine Protein 100 H (Neg-Trace) mg/dL Urine Glucose (UA) Normal (Normal) mg/dL Urine Ketones Trace H (Negative) mg/dL Urine Blood Large H (Negative) Urine Nitrite Positive A (Negative) Urine Bilirubin Negative (Negative) Urine Urobilinogen Normal (Normal) mg/dL Ur Leukocyte Esterase Large H (Negative) Urine Microscopic RBC 5-15 H (0-3) per hpf Urine Microscopic WBC TNTC H (0-3) per hpf Urine Bacteria Moderate H (None-Few) per hpf Ur Culture Indicated? YES A (NO) Nasal Screen MRSA (PCR) Negative (Negative) Consult Discharge Plan - Plan Referrals: NONE,PCP [Primary Care Provider] - ([facility])
--- NOTE | 2018-10-16 14:58 | Internal Med Progress Note ---
Hospitalist Progress Note - Encounter Date of Encounter: 10/16/18 Time of Encounter: 14:56 - Subjective Interval History: I have seen and evaluated the patient. he reports that his pain is better controlled. denies chest pain, shortness of breath, nausea or vomiting - Exam Vitals: Temp Pulse Resp BP Pulse Ox 98.1 F 85 16 117/69 96 10/16/18 11:29 10/16/18 11:29 10/16/18 11:29 10/16/18 11:29 10/16/18 11:29 Exam: Vitals: reviewed General: Alert and orientedx4. Mild distress due to back pain Skin: multiple stage IV sacral ulcers with foul smelling secretion. Cardiovascular: RRR, Normal S1 & S2, no rubs, murmurs or gallops. Lungs: Clear to auscultation bilaterally, no wheezes or crackles. Abdomen: Soft, non-tender, no rigidity. NABS in all 4 quadrants Extremities: Paraplejic. Neurological: Normal cognition. Rest of the physical exam is non contributory - Assessment and Plan (1) Sepsis Current Visit: Yes Status: Acute Assessment and Plan: improving/resolving. no longer tachycardic or hypotensive. sepsis due to complicated UTI. Plan: Decrease IV fluids to 75mls/hr. On normal saline continue broad spectrum antibiotics coverage Blood culture: no growth, pending final report urine culture pending (2) Osteomyelitis of sacrum Current Visit: No Status: Chronic Assessment and Plan: Patient reported that he is aware of having an infection in his bones but he does not recall being treated for it. Patient on broad spectrum antibiotics with vancomycin per pharmacy dosing piperacillin/Tazobactam 3.375mg/IV Q8HRs ID consulted to determine whether this patient should be treated for Osteo and the potential length of antibiotics coverage. (3) Hypomagnesemia Current Visit: Yes Status: Acute Assessment and Plan: electrolyte replaced. repeat mag level in the morning. (4) Pressure ulcer of sacral region, stage 4 Current Visit: Yes Status: Chronic Assessment and Plan: surgery consulted recommended no intervention surgical intervention. recommended the areas packed with Dakin's soaked Kerlix. Cover with ABD pads. Tape to secure. daily wound care (5) Complicated UTI (urinary tract infection) Current Visit: No Status: Acute Assessment and Plan: plan of care as per problem #1. (6) Anemia Current Visit: No Status: Chronic Assessment and Plan: H&H dropped from *.6&27.9 on presentation to 7.1&24.2. No active signs of bleeding. possible dilution as patient has received almost three litters of IV fluids a part of the resuscitation. Serial H&H Q6HRs, will consider transfusion if Hb <7, Hct <23 or patient becomes symptomatic FOBT sent Iron panel type and screen. cross match 1 unit of PRBCs. (7) COPD (chronic obstructive pulmonary disease) Current Visit: No Status: Chronic Assessment and Plan: Not on acute exacerbation. Chest is clear to auscultation bilaterally. On bronchodilators when necessary. Continue Symbicort. (8) Hepatitis C Current Visit: No Status: Chronic Assessment and Plan: outpatient follow up. DVT Prophylaxis: Heparin has been discontinued, due to drop in H&H rule out GI bleed. Intermittent pneumatic compression for DVT prophylaxis. - Summary of Assessment and Plan Summary of Assessment and Plan: Patient to remain in the hospital due to sepsis, due to complicated UTI, acute on chronic ulcer Osteomyelitis. on broad-spectrum IT IV antibiotics - Time Spent with Patient Total time spent is greater than 50% in coordination of care (as documented) at patient's floor/unit and/or counseling patient: Greater than 35 minutes (45) Plan of Care Discussed with: patient (and the nurse.) Internal Medicine: Result - Labs CBC & Chem 7: 10/16/18 04:00 10/16/18 04:00 Labs: Short CBC 10/16/18 Range/Units 04:00 WBC 11.5 H (4.3-11.1) K/mcL Hgb 7.1 L (12.9-16.9) g/dL Hct 24.2 L (37.5-50.1) % Plt Count 190 (140-400) K/mcL Neutrophils # 8.6 (1.6-8.9) K/mcL BMP 10/16/18 04:00 Sodium 139 Potassium 3.7 Chloride 107 Carbon Dioxide 26 BUN 12 Creatinine 0.71 Glucose 91 Calcium 8.4 L - ABG Interpretation ABG results: PT/INR, D-dimer PT 15.3 Seconds (9.4-12.1) H 10/14/18 21:24 Consult Discharge Plan - Plan Referrals: NONE,PCP [Primary Care Provider] - ([facility]) (1) Sepsis Qualifiers: Sepsis type: sepsis due to unspecified organism Qualified Code(s): A41.9 - Sepsis, unspecified organism (6) Anemia Qualifiers: Anemia type: unspecified type Qualified Code(s): D64.9 - Anemia, unspecified (7) COPD (chronic obstructive pulmonary disease) Qualifiers: COPD type: emphysema Emphysema type: unspecified Qualified Code(s): J43.9 - Emphysema, unspecified (8) Hepatitis C Qualifiers: Viral hepatitis chronicity: unspecified Hepatic coma status: without hepatic coma Qualified Code(s): B19.20 - Unspecified viral hepatitis C without hepatic coma
[2018-10-16 15:20] LABS: Basophils % 0.2 %; Eosinophils # 0.3 K/mcL (0.0-0.6); Hemoglobin 8.1 g/dL (12.9-16.9); Immature Granulocytes % 0.6 % (0-4); Lymphocytes # 1.5 K/mcL (0.6-4.6); Lymphocytes % 16.8 %; Mean Corpuscular Hemoglobin 24.8 pg (28.0-33.3); Mean Corpuscular Volume 82.8 fL (83.0-100.0); Mean Platelet Volume 9.5 fL (9.4-12.4); Monocytes # 0.5 K/mcL (0.0-1.3); Monocytes % 5.6 %; Neutrophils # 6.4 K/mcL (1.6-8.9); Platelet Count 195 K/mcL (140-400); Red Blood Count 3.26 M/mcL (4.19-5.50); Red Cell Distribution Width 16.2 % (11.5-14.5); Segmented Neutrophils % 73.8 %
[2018-10-16] MEDS: OLANZapine 10 MG TAB.RAPDIS PO SCH (20:56)
[2018-10-17] MEDS: Ipratropium/Albuterol Neb 3 ML IH SCH ×6 (04:12→23:35)
[2018-10-17] MEDS: Famotidine 20 MG/2 ML VIAL IVP SCH ×2 (05:02→17:35)
[2018-10-17 05:18] LABS: Basophils % 0.3 %; Eosinophils # 0.4 K/mcL (0.0-0.6); Eosinophils % 4.6 %; Hematocrit 26.2 % (37.5-50.1); Immature Granulocytes % 0.5 % (0-4); Lymphocytes # 1.4 K/mcL (0.6-4.6); Lymphocytes % 18.3 %; Mean Corpuscular HGB Conc 30.5 g/dL (31.6-35.5); Mean Corpuscular Hemoglobin 24.9 pg (28.0-33.3); Mean Corpuscular Volume 81.6 fL (83.0-100.0); Mean Platelet Volume 9.2 fL (9.4-12.4); Monocytes # 0.6 K/mcL (0.0-1.3); Monocytes % 7.3 %; Neutrophils # 5.3 K/mcL (1.6-8.9); Platelet Count 200 K/mcL (140-400); Red Blood Count 3.21 M/mcL (4.19-5.50); Red Cell Distribution Width 16.1 % (11.5-14.5)
[2018-10-17 05:39] LABS: % Iron Saturation 13 % (20-55); BUN/Creatinine Ratio 17 (6-26); Blood Urea Nitrogen 10 mg/dL (6-20); Calcium 8.7 mg/dL (8.6-10.3); Carbon Dioxide 26 mEq/L (23-29); Chloride 106 mEq/L (98-107); Glucose 90 mg/dL (70-105); Iron 22 mcg/dL (65-175); Magnesium 1.4 mg/dL (1.6-2.6); Osmolality,Calculated 285 (280-300); Phosphorous 3.1 mg/dL (2.7-4.5); Potassium 3.9 mEq/L (3.5-5.1); Sodium 138 mEq/L (136-145); Transferrin 117 mg/dL (203-362); eGFR For Non-African Americans > 60 (> 60)
[2018-10-17] MEDS: Budesonide/Formoterol 80/4.5 MDI IH SCH ×2 (07:29→20:11)
[2018-10-17] MEDS: 0.9 % Sodium Chloride 1,000 ML IVC SCH (08:58)
[2018-10-17] MEDS: traMADol 50 MG TABLET PO PRN (08:59)
[2018-10-17] MEDS: Valproic Acid 250 MG CAPSULE PO SCH ×3 (08:59→16:13)
[2018-10-17] MEDS: Gabapentin 300 MG CAPSULE PO SCH ×3 (08:59→21:28)
[2018-10-17] MEDS: Piperacillin/Tazobactam 3.375 GM in 0.9 % Sodium Chloride Mini Bag 100 ML IVPB SCH ×2 (09:00→16:13)
[2018-10-17] MEDS: Miconazole 2% ointment 114 GM TUBE TP SCH ×2 (09:01→21:29)
--- NOTE | 2018-10-17 11:03 | Internal Med Progress Note ---
Hospitalist Progress Note - Encounter Date of Encounter: 10/17/18 Time of Encounter: 11:01 - Subjective Interval History: I have seen and evaluated the patient. Patient reports feeling better, denies chest pain, abdominal pain, nausea or vomiting. Report 3/10 lower back pain - Exam Vitals: Temp Pulse Resp BP Pulse Ox 97.8 F 72 18 148/75 100 10/17/18 07:32 10/17/18 07:32 10/17/18 07:32 10/17/18 07:32 10/17/18 09:04 Exam: Vitals: reviewed General: Alert and orientedx4. still in Mild distress due to back pain Skin: multiple stage IV sacral ulcers with foul smelling secretion. Cardiovascular: RRR, Normal S1 & S2, no rubs, murmurs or gallops. Lungs: Clear to auscultation bilaterally, no wheezes or crackles. Abdomen: Soft, non-tender, no rigidity. NABS in all 4 quadrants. Colostomy bag. Extremities: Paraplejic. Neurological: Normal cognition. Rest of the physical exam is non contributory - Assessment and Plan (1) Complicated UTI (urinary tract infection) Current Visit: No Status: Acute Assessment and Plan: urine culture: growing gram negative rods. pending sensitivity and specificity On piperacillin/tazobactam 3.375mg/IV Q8HRs will repeat UA. (2) Osteomyelitis of sacrum Current Visit: No Status: Chronic Assessment and Plan: ID consulted recommended to continue patient on vancomycin, per pharmacy dosing Will call ID to discuss length of antibiotics therapy PO vs IV for discharge planning. (3) Sepsis Current Visit: Yes Status: Resolved Assessment and Plan: sepsis picture on presentation has resolved. will discontinue IV fluids. Encourage PO intake continue broad spectrum IV antibiotics (4) Hypomagnesemia Current Visit: Yes Status: Acute Assessment and Plan: electrolyte being replaced. given 1gm/IV will re-check level post replacement. (5) Pressure ulcer of sacral region, stage 4 Current Visit: Yes Status: Chronic Assessment and Plan: ID recommended to transfer the patient to a facility with plastic surgery service I discussed with the patient about transferring him to a center with that service but the patient refused. He reports that he has been told to follow up with the plastic surgery service at [facility] in a month. stated that he is going to consider about being transferred there now and will get back to me. Wound care per wound care and surgery recommendations. (6) Anemia Current Visit: No Status: Chronic Assessment and Plan: H&H stable. Iron deficiency FOBT pending will start ferrous sulfate If H&H continues to trend down will consider GI consult. (7) COPD (chronic obstructive pulmonary disease) Current Visit: No Status: Chronic Assessment and Plan: no on acute exacerbation. continue bronchodilators therapy PRN. and symbicort. (8) Hepatitis C Current Visit: No Status: Chronic DVT Prophylaxis: Heparin has been on hold pending FOBT mechanical DVT prophylaxis - Summary of Assessment and Plan Summary of Assessment and Plan: Patient to remain in the hospital pending urine sensitivity and specificity. Potential discharge tomorrow. - Time Spent with Patient Total time spent is greater than 50% in coordination of care (as documented) at patient's floor/unit and/or counseling patient: Greater than 35 minutes (45) Plan of Care Discussed with: patient (and the nurse.) Internal Medicine: Result - Labs CBC & Chem 7: 10/17/18 04:56 10/17/18 04:56 Labs: Short CBC 10/16/18 10/17/18 Range/Units 15:03 04:56 WBC 8.6 7.6 (4.3-11.1) K/mcL Hgb 8.1 L 8.0 L (12.9-16.9) g/dL Hct 27.0 L 26.2 L (37.5-50.1) % Plt Count 195 200 (140-400) K/mcL Neutrophils # 6.4 5.3 (1.6-8.9) K/mcL BMP 10/17/18 04:56 Sodium 138 Potassium 3.9 Chloride 106 Carbon Dioxide 26 BUN 10 Creatinine 0.60 L Glucose 90 Calcium 8.7 - ABG Interpretation ABG results: PT/INR, D-dimer PT 15.3 Seconds (9.4-12.1) H 10/14/18 21:24 Consult Discharge Plan - Plan Referrals: NONE,PCP [Primary Care Provider] - ([facility]MP) (3) Sepsis Qualifiers: Sepsis type: sepsis due to unspecified organism Qualified Code(s): A41.9 - Sepsis, unspecified organism (6) Anemia Qualifiers: Anemia type: unspecified type Qualified Code(s): D64.9 - Anemia, unspecified (7) COPD (chronic obstructive pulmonary disease) Qualifiers: COPD type: emphysema Emphysema type: unspecified Qualified Code(s): J43.9 - Emphysema, unspecified (8) Hepatitis C Qualifiers: Viral hepatitis chronicity: unspecified Hepatic coma status: without hepatic coma Qualified Code(s): B19.20 - Unspecified viral hepatitis C without hepatic coma
[2018-10-17] MEDS ORDERED: *HR* Alteplase (Cathflo) 2 MG VIAL IVP ONE (14:46)
[2018-10-17 16:21] LABS: Bilirubin,Urine Negative (Negative); Blood,Urine Small (Negative); Clarity,Urine Cloudy (Clear); Color,Urine Yellow (Yellow); Glucose,Urine (UA) Normal (Normal); Ketones,Urine Trace mg/dL (Negative); Leukocyte Esterase,Urine Large (Negative); Nitrite,Urine Negative (Negative); Protein,Urine 30 mg/dL (Neg-Trace); Specific Gravity,Urine 1.006 (1.010-1.025); Urobilinogen,Urine Normal (Normal)
[2018-10-17 16:23] LABS: Bacteria,Urine None Seen per hpf (None-Few); Hyaline Casts,Urine None Seen per lpf (None-Few); RBC,Urine 15-30 per hpf (0-3); Squamous Epithelial Cell,Urine None Seen per lpf (None-Few); WBC,Urine TNTC per hpf (0-3)
[2018-10-17] MEDS: OLANZapine 10 MG TAB.RAPDIS PO SCH (21:29)
[2018-10-18] MEDS: Piperacillin/Tazobactam 3.375 GM in 0.9 % Sodium Chloride Mini Bag 100 ML IVPB SCH ×3 (00:27→17:19)
[2018-10-18] MEDS ORDERED: Aminoglycoside Consult 1 EACH MC ONE (02:42)
[2018-10-18 03:14] LABS: Basophils % 0.3 %; Eosinophils # 0.3 K/mcL (0.0-0.6); Eosinophils % 3.7 %; Hematocrit 25.7 % (37.5-50.1); Hemoglobin 7.9 g/dL (12.9-16.9); Immature Granulocytes % 0.8 % (0-4); Lymphocytes # 1.8 K/mcL (0.6-4.6); Lymphocytes % 25.7 %; Mean Corpuscular HGB Conc 30.7 g/dL (31.6-35.5); Mean Corpuscular Hemoglobin 24.9 pg (28.0-33.3); Mean Corpuscular Volume 81.1 fL (83.0-100.0); Monocytes # 0.7 K/mcL (0.0-1.3); Monocytes % 9.1 %; Neutrophils # 4.3 K/mcL (1.6-8.9); Platelet Count 195 K/mcL (140-400); Red Blood Count 3.17 M/mcL (4.19-5.50); Red Cell Distribution Width 16.3 % (11.5-14.5); Segmented Neutrophils % 60.4 %
[2018-10-18 03:22] LABS: BUN/Creatinine Ratio 18 (6-26); Blood Urea Nitrogen 12 mg/dL (6-20); Calcium 9.1 mg/dL (8.6-10.3); Carbon Dioxide 27 mEq/L (23-29); Chloride 103 mEq/L (98-107); Glucose 94 mg/dL (70-105); Magnesium 1.4 mg/dL (1.6-2.6); Osmolality,Calculated 280 (280-300); Phosphorous 2.8 mg/dL (2.7-4.5); Potassium 4.1 mEq/L (3.5-5.1); Sodium 135 mEq/L (136-145); eGFR For Non-African Americans > 60 (> 60)
[2018-10-18] MEDS: Ipratropium/Albuterol Neb 3 ML IH SCH ×5 (03:41→20:05)
[2018-10-18] MEDS: Famotidine 20 MG/2 ML VIAL IVP SCH ×2 (05:42→17:38)
[2018-10-18] MEDS: Budesonide/Formoterol 80/4.5 MDI IH SCH ×2 (07:27→20:05)
[2018-10-18] MEDS: Valproic Acid 250 MG CAPSULE PO SCH ×3 (09:51→17:18)
[2018-10-18] MEDS: Gabapentin 300 MG CAPSULE PO SCH ×3 (09:51→18:06)
[2018-10-18] MEDS: Miconazole 2% ointment 114 GM TUBE TP SCH ×2 (09:55→21:59)
[2018-10-18] MEDS: traMADol 50 MG TABLET PO PRN ×2 (09:58→18:06)
[2018-10-18] MEDS: Magnesium Oxide 400 MG TABLET PO SCH (10:01)
--- NOTE | 2018-10-18 13:24 | Internal Med Progress Note ---
Hospitalist Progress Note - Encounter Date of Encounter: 10/18/18 Time of Encounter: 13:18 - Subjective Interval History: I have seen and evaluated the patient. reports that he wants to be discharged [facility] explained to him that he will be discharge tomorrow morning. he reported understanding. reports back pain, denies nausea or vom iting. - Exam Vitals: Temp Pulse Resp BP Pulse Ox 98.2 F 72 18 112/70 95 10/18/18 11:50 10/18/18 11:50 10/18/18 11:50 10/18/18 11:50 10/18/18 11:50 Exam: Vitals: reviewed General: Alert and orientedx4. in mild distress due to back pain Skin: multiple stage IV sacral ulcers. Cardiovascular: RRR, Normal S1 & S2, no rubs, murmurs or gallops. Lungs: Clear to auscultation bilaterally, no wheezes or crackles. Abdomen: Soft, non-tender, no rigidity. NABS in all 4 quadrants Extremities: Paraplejic. Neurological: Normal cognition. Rest of the physical exam is non contributory - Assessment and Plan (1) Complicated UTI (urinary tract infection) Current Visit: No Status: Acute Assessment and Plan: Urine culture growing multiple organisms. Proteus. And Klebsiella pneumonia MDRO patient is on Piperacillin/tazobactam 3.375mg/IV Q8HRs patient will likely need treatment with a carbapenem, will discuss with ID Blood culture: no growth, pending final report (2) Osteomyelitis of sacrum Current Visit: No Status: Chronic Assessment and Plan: patient on vancomycin per pharmacy dosing patient refused to be transferred to a facility with plastic surgery care as recommended by ID (3) Sepsis Current Visit: Yes Status: Resolved (4) Hypomagnesemia Current Visit: Yes Status: Acute Assessment and Plan: electrolyte being replaced. 2gm of magnesium IV x1. repeat level in the morning (5) Pressure ulcer of sacral region, stage 4 Current Visit: Yes Status: Chronic Assessment and Plan: wound care per wound care nurse and surgery recommendations on Tramadol 50mg/PO Q6HR PRN for pain control (6) Anemia Current Visit: No Status: Chronic Assessment and Plan: Iron deficiency. started on ferrous sulfate. H&H stable. will consider transfusing 1 unit of PRBCs if Hb<7, Hct <23 or patient becomes symptomatic. (7) COPD (chronic obstructive pulmonary disease) Current Visit: No Status: Chronic Assessment and Plan: Not an acute exacerbation. Continue bronchodilator when necessary. Incentive spirometry. On Symbicort. (8) Hepatitis C Current Visit: No Status: Chronic Assessment and Plan: outpatient follow up. DVT Prophylaxis: will resume heparin 5000 units subcutaneous twice a day. FOBT negative - Summary of Assessment and Plan Summary of Assessment and Plan: Patient to remain in the hospital pending outpatient antibiotics clarification. Potential discharge tomorrow. - Time Spent with Patient Total time spent is greater than 50% in coordination of care (as documented) at patient's floor/unit and/or counseling patient: Greater than 35 minutes (45) Plan of Care Discussed with: patient (and the nurse.) Internal Medicine: Result - Labs CBC & Chem 7: 10/18/18 02:38 10/18/18 02:38 Labs: Short CBC 10/18/18 Range/Units 02:38 WBC 7.1 (4.3-11.1) K/mcL Hgb 7.9 L (12.9-16.9) g/dL Hct 25.7 L (37.5-50.1) % Plt Count 195 (140-400) K/mcL Neutrophils # 4.3 (1.6-8.9) K/mcL BMP 10/18/18 02:38 Sodium 135 L Potassium 4.1 Chloride 103 Carbon Dioxide 27 BUN 12 Creatinine 0.67 L Glucose 94 Calcium 9.1 Urine 10/17/18 Range/Units 15:55 Urine Color Yellow (Yellow) Urine Clarity Cloudy A (Clear) Urine pH 8.0 (5.0-8.0) pH Units Ur Specific [place] 1.006 L (1.010-1.025) Urine Protein 30 H (Neg-Trace) mg/dL Urine Glucose (UA) Normal (Normal) mg/dL - ABG Interpretation ABG results: PT/INR, D-dimer PT 15.3 Seconds (9.4-12.1) H 10/14/18 21:24 - VTE Documentation of Mechanical Device: Intermittent pneumatic compression device Consult Discharge Plan - Plan Referrals: NONE,PCP [Primary Care Provider] - ([facility]MP) (3) Sepsis Qualifiers: Sepsis type: sepsis due to unspecified organism Qualified Code(s): A41.9 - Sepsis, unspecified organism (6) Anemia Qualifiers: Anemia type: unspecified type Qualified Code(s): D64.9 - Anemia, unspecified (7) COPD (chronic obstructive pulmonary disease) Qualifiers: COPD type: emphysema Emphysema type: unspecified Qualified Code(s): J43.9 - Emphysema, unspecified (8) Hepatitis C Qualifiers: Viral hepatitis chronicity: unspecified Hepatic coma status: without hepatic coma Qualified Code(s): B19.20 - Unspecified viral hepatitis C without hepatic coma
[2018-10-18] MEDS: *HR* Heparin 5,000 UNIT/ML VIAL SQ SCH (17:19)
[2018-10-18] MEDS: OLANZapine 10 MG TAB.RAPDIS PO SCH (21:59)
[2018-10-19] MEDS: Ipratropium/Albuterol Neb 3 ML IH SCH ×5 (00:02→16:03)
[2018-10-19] MEDS: Piperacillin/Tazobactam 3.375 GM in 0.9 % Sodium Chloride Mini Bag 100 ML IVPB SCH ×2 (00:15→08:44)
[2018-10-19] MEDS: Famotidine 20 MG/2 ML VIAL IVP SCH (04:15)
[2018-10-19] MEDS: *HR* Heparin 5,000 UNIT/ML VIAL SQ SCH (04:15)
[2018-10-19] MEDS: Budesonide/Formoterol 80/4.5 MDI IH SCH (07:35)
[2018-10-19] MEDS: Magnesium Oxide 400 MG TABLET PO SCH (08:43)
[2018-10-19] MEDS: Valproic Acid 250 MG CAPSULE PO SCH ×2 (08:43→12:55)
[2018-10-19] MEDS: Gabapentin 300 MG CAPSULE PO SCH (08:43)
[2018-10-19] MEDS: Miconazole 2% ointment 114 GM TUBE TP SCH (08:45)
[2018-10-19] MEDS ORDERED: *HR* Alteplase (Cathflo) 2 MG VIAL IVP ONE (09:01)
--- NOTE | 2018-10-19 09:12 | Discharge Summary ---
- NOTES TO OUTPATIENT PROVIDER Notes to Outpatient Provider: Follow-up with infectious disease within 1-2 weeks of hospital discharge. Follow-up with wound care within a week of hospital discharge. Orders not resulted at time of discharge: Pending orders 10/14/18 21:24 Culture,Blood [BC] Stat 10/19/18 04:00 Basic Metabolic Panel AM 0400 CBC [Complete Blood Count] [HEME] AM 0400 Magnesium AM 0400 Phosphorous AM 0400 Vancomycin,Trough Timed Date of Encounter: 10/19/18 Time of Encounter: 09:04 - Discharge Diagnosis (1) Complicated UTI (urinary tract infection) Priority: Primary Status: Acute (2) Osteomyelitis of sacrum Priority: Secondary Status: Chronic (3) Sepsis Priority: Secondary Status: Resolved Qualifiers: Sepsis type: sepsis due to unspecified organism Qualified Code(s): A41.9 - Sepsis, unspecified organism (4) Hypomagnesemia Priority: Secondary Status: Resolved (5) Pressure ulcer of sacral region, stage 4 Priority: Secondary Status: Chronic (6) Anemia Priority: Secondary Status: Chronic Qualifiers: Anemia type: unspecified type Qualified Code(s): D64.9 - Anemia, unspecified (7) COPD (chronic obstructive pulmonary disease) Priority: Secondary Status: Chronic Qualifiers: COPD type: emphysema Emphysema type: unspecified Qualified Code(s): J43.9 - Emphysema, unspecified (8) Hepatitis C Priority: Secondary Status: Chronic Qualifiers: Viral hepatitis chronicity: unspecified Hepatic coma status: without hepatic coma Qualified Code(s): B19.20 - Unspecified viral hepatitis C without hepatic coma Hospital course: Mr. Carrasco is a 53 year old male PMHx significant for paraplegia, chronic osteomyelitis, multiple decubitus ulcers, chronic anemia, mood disorders, epidural abscess, COPD, GERD who presents to the ED from [facility] due to abdominal pain/ back pain, and elevated HR with fever. Patient admitted to the hospital due to hypotension secondary to sepsis. Patient found to have a UTI, urine culture grew Klebsiella pneumonia MRDO, and proteous. A CT of the abdomen/Pelvis done: There is unchanged thickening of the wall of the urinary bladder. There is perivesical fat stranding. Correlate for possible acute cystitis. There is unchanged thickening of the wall of the rectum with perirectal fat stranding. There are unchanged decubitus ulcers involving the sacrum, both ischial tuberosities and left greater trochanter with adjacent bone changes consistent with osteomyelitis. Debris or mucous plugs filling the left lower lobe bronchi. This may represent debris from aspiration and/or mucous plugs. Due to chronic stage IV sacral decubitus ulcer, surgery was consulted, recommended: No acute surgical intervention indicated at this time. Patient has been seen in July and September by the surgical service. He was recommended to follow-up in wound care but has yet to do so. For the sacral and gluteal decubitus ulcers, he is recommended to have the areas packed with Dakin's soaked Kerlix. Cover with ABD pads. Tape to secure. Follow-up in wound care in one week after d/c. ID recommended the patient to be transferred to a center with a plastic surgery service. Option discusses with the patient but her refused. Blood culture: no growth. Patient hypotension resolved with IV hydration and IV broad spectrum antibiotics. due to MRDO organism in the urine ID recommended the patient to be D?C on ertapenem 1gm/IV daily x6 weeks. 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 Patient acute symptoms have resolved and patient is hemodynamically stable to be discharge to [facility] on IV antibiotics to complete 6 weeks of therapy. - Time Spent with Patient Total time spent providing and/or coordinating discharge services: Greater than 30 minutes (45) - Discharge Medications Prescriptions: Collagenase Oint [Santyl] 1 appl TP DAILY 30 Days #3 tube Doxycycline Hyclate 100 mg PO BID 60 Days #90 capsule Ertapenem Sodium [Invanz] 1 gm IJ DAILY 45 Days #45 vial Ferrous Sulfate 325 mg PO BIDWM 30 Days #60 tablet Gabapentin [Neurontin] 600 mg PO TID 30 Days #90 capsule Magnesium Oxide [Mag-Ox] 400 mg PO DAILY 30 Days #30 tablet Sodium Hypochlorite 0.5% [Dakin's (Full-Strength 0.5%)] 1 appl TP DAILY 30 Days #3 bottle Tramadol HCl [Ultram] 50 mg PO Q8H PRN 10 Days #30 tablet PRN Reason: Pain Home Medications: Albuterol Neb [Proventil Neb] 2.5 mg IH Q6H PRN 07/01/18 [History] Baclofen [Lioresal] 10 mg PO TID 07/01/18 [History] Famotidine [Heartburn Prevention] 20 mg PO Q12H 07/01/18 [History] Gabapentin [Neurontin] 600 mg PO TID 07/01/18 [History] Heparin 5,000 unit SQ Q8H 07/01/18 [History] Iron Polysaccharide Complex [Ferrex 150] 150 mg PO DAILY 07/01/18 [History] Nortriptyline [Pamelor] 25 mg PO HS 07/01/18 [History] Ascorbic Acid [Vitamin C] 500 mg PO BID 07/28/18 [History] Budesonide/Formoterol 80/4.5 [Symbicort 80/4.5] 2 puff IH BID 07/28/18 [History] Lactulose [Enulose] 20 gm PO TIDWM 07/28/18 [History] Lidocaine [Aspercreme] 1 each TP DAILY 07/28/18 [History] Melatonin [Melatin] 3 mg PO HS 07/28/18 [History] Multivitamin [Multivitamins] 1 each PO DAILY 07/28/18 [History] OLANZapine [Zyprexa] 10 mg PO QPM 07/28/18 [History] Zinc Sulfate 220 mg PO BID 07/28/18 [History] Acetaminophen [Tylenol] 650 mg PO Q8H PRN 08/04/18 [History] Amino Acids/Protein Hydrolys [Pro-Stat Awc Liquid] 30 ml PO BID 09/09/18 [History] Buspirone HCl [Buspar] 5 mg PO TID 09/09/18 [History] Valproic Acid [Depakene] 500 mg PO Q8H 09/18/18 [History] Collagenase Oint [Santyl] 1 appl TP DAILY 30 Days #3 tube 10/19/18 [Rx] Doxycycline Hyclate 100 mg PO BID 60 Days #90 capsule 10/19/18 [Rx] Ertapenem Sodium [Invanz] 1 gm IJ DAILY 45 Days #45 vial 10/19/18 [Rx] Ferrous Sulfate 325 mg PO BIDWM 30 Days #60 tablet 10/19/18 [Rx] Gabapentin [Neurontin] 600 mg PO TID 30 Days #90 capsule 10/19/18 [Rx] Magnesium Oxide [Mag-Ox] 400 mg PO DAILY 30 Days #30 tablet 10/19/18 [Rx] Sodium Hypochlorite 0.5% [Dakin's (Full-Strength 0.5%)] 1 appl TP DAILY 30 Days #3 bottle 10/19/18 [Rx] Tramadol HCl [Ultram] 50 mg PO Q8H PRN 10 Days #30 tablet 10/19/18 [Rx] Allergies/Adverse Reactions: Allergy/AdvReac Type Severity Reaction Status Date / Time No Known Allergies Allergy Verified 08/02/18 22:22 Date of admission: 10/15/18 02:41 Primary care physician: PCP NONE Consults: 10/15/18 04:38 Consult to Wound Care [CONS] Routine Reason for Consult: Hx multiple sacral decubitus ulcers Call Completed: No 10/15/18 08:56 Consult to [employer] [CONS] Routine Reason for SW Consult: rtn WMP 10/15/18 13:14 Consult to Surgery [CONS] Routine Consulting Provider: Dylon Torres Reason for Consult: Stage IV decubitus ulcer. Call Completed: No 10/15/18 14:23 Consult to Infectious Diseases [CONS] Routine Consulting Provider: Infectious Disease Catherine Reason for Consult: Osteomyelitis. Sepsis Call Completed: No - Constitutional Vitals: Temp Pulse Resp BP Pulse Ox 97.5 F L 98 18 107/64 97 10/19/18 07:21 10/19/18 07:21 10/19/18 07:21 10/19/18 07:21 10/19/18 07:21 General appearance: Present: cooperative, A&O X 3, pleasant, no acute distress, answers questions appropriately Exam: Vitals: reviewed General: Alert and orientedx4. in mild distress due to back pain Skin: multiple stage IV sacral ulcers. Cardiovascular: RRR, Normal S1 & S2, no rubs, murmurs or gallops. Lungs: Clear to auscultation bilaterally, no wheezes or crackles. Abdomen: Soft, non-tender, no rigidity. NABS in all 4 quadrants Extremities: Paraplejic. Neurological: Normal cognition. Psych: Affect appropriate. Rest of the physical exam is non contributory - Patient Status Disposition: Transfer LTC Condition: Good Functional capacity at discharge: bed bound - Discharge Instructions Follow Up With: NONE,PCP [Primary Care Provider] - (WMP) - Diet and Activity Activity: as per physical therapy Diet: advance to your usual diet - VTE Documentation of Mechanical Device: Intermittent pneumatic compression device
--- NOTE | 2018-10-19 09:29 | Physician Discharge Referral ---
ExtendedCare Referral Info Transfer To: [facility] - Diagnosis (1) Complicated UTI (urinary tract infection) Priority: Primary Status: Acute (2) Osteomyelitis of sacrum Priority: Secondary Status: Chronic (3) Sepsis Priority: Secondary Status: Resolved (4) Hypomagnesemia Priority: Secondary Status: Resolved (5) Pressure ulcer of sacral region, stage 4 Priority: Secondary Status: Chronic (6) Anemia Priority: Secondary Status: Chronic (7) COPD (chronic obstructive pulmonary disease) Priority: Secondary Status: Chronic (8) Hepatitis C Priority: Secondary Status: Chronic Prognosis: Fair Aware of Diagnosis: Patient Aware of Prognosis: Patient - Transfer Medications Prescriptions: Collagenase Oint [Santyl] 1 appl TP DAILY 30 Days #3 tube Doxycycline Hyclate 100 mg PO BID 60 Days #90 capsule Ertapenem Sodium [Invanz] 1 gm IJ DAILY 45 Days #45 vial Ferrous Sulfate 325 mg PO BIDWM 30 Days #60 tablet Gabapentin [Neurontin] 600 mg PO TID 30 Days #90 capsule Magnesium Oxide [Mag-Ox] 400 mg PO DAILY 30 Days #30 tablet Sodium Hypochlorite 0.5% [Dakin's (Full-Strength 0.5%)] 1 appl TP DAILY 30 Days #3 bottle Tramadol HCl [Ultram] 50 mg PO Q8H PRN 10 Days #30 tablet PRN Reason: Pain Home Medications: Albuterol Neb [Proventil Neb] 2.5 mg IH Q6H PRN 07/01/18 [History] Baclofen [Lioresal] 10 mg PO TID 07/01/18 [History] Famotidine [Heartburn Prevention] 20 mg PO Q12H 07/01/18 [History] Gabapentin [Neurontin] 600 mg PO TID 07/01/18 [History] Heparin 5,000 unit SQ Q8H 07/01/18 [History] Iron Polysaccharide Complex [Ferrex 150] 150 mg PO DAILY 07/01/18 [History] Nortriptyline [Pamelor] 25 mg PO HS 07/01/18 [History] Ascorbic Acid [Vitamin C] 500 mg PO BID 07/28/18 [History] Budesonide/Formoterol 80/4.5 [Symbicort 80/4.5] 2 puff IH BID 07/28/18 [History] Lactulose [Enulose] 20 gm PO TIDWM 07/28/18 [History] Lidocaine [Aspercreme] 1 each TP DAILY 07/28/18 [History] Melatonin [Melatin] 3 mg PO HS 07/28/18 [History] Multivitamin [Multivitamins] 1 each PO DAILY 07/28/18 [History] OLANZapine [Zyprexa] 10 mg PO QPM 07/28/18 [History] Zinc Sulfate 220 mg PO BID 07/28/18 [History] Acetaminophen [Tylenol] 650 mg PO Q8H PRN 08/04/18 [History] Amino Acids/Protein Hydrolys [Pro-Stat Awc Liquid] 30 ml PO BID 09/09/18 [History] Buspirone HCl [Buspar] 5 mg PO TID 09/09/18 [History] Valproic Acid [Depakene] 500 mg PO Q8H 09/18/18 [History] Collagenase Oint [Santyl] 1 appl TP DAILY 30 Days #3 tube 10/19/18 [Rx] Doxycycline Hyclate 100 mg PO BID 60 Days #90 capsule 10/19/18 [Rx] Ertapenem Sodium [Invanz] 1 gm IJ DAILY 45 Days #45 vial 10/19/18 [Rx] Ferrous Sulfate 325 mg PO BIDWM 30 Days #60 tablet 10/19/18 [Rx] Gabapentin [Neurontin] 600 mg PO TID 30 Days #90 capsule 10/19/18 [Rx] Magnesium Oxide [Mag-Ox] 400 mg PO DAILY 30 Days #30 tablet 10/19/18 [Rx] Sodium Hypochlorite 0.5% [Dakin's (Full-Strength 0.5%)] 1 appl TP DAILY 30 Days #3 bottle 10/19/18 [Rx] Tramadol HCl [Ultram] 50 mg PO Q8H PRN 10 Days #30 tablet 10/19/18 [Rx] Allergies/Adverse Reactions: Allergy/AdvReac Type Severity Reaction Status Date / Time No Known Allergies Allergy Verified 08/02/18 22:22 - Respiratory Orders None Smoking Cessation: Smoking cessation has been advised. For more information, call the [place] Tobacco Quit Line at 5-305-WGRV-NOW. - Advance Directives Code Status: Full Code - Mobility Orders Bedrest - Rehabiliation Orders Rehab Potential: Fair Rehab Orders: Evaluation for Physical Therapy, Evaluation for Occupational Therapy - Treatments Skin tear care topically daily PRN per policy - Diet Orders Regular CERTIFICATION: I certify that the transfer of the above named patient to an Extended Care Facility is necessary for the continuing treatment of the diagnosis listed. The above information is true and accurate reflection of patient's current condition. Confidential - Redisclosure prohibited without a patient's written consent.
[2018-10-19] MEDS ORDERED: Doxycycline 100 MG CAPSULE PO SCH ×2 (10:30→11:00)
[2018-10-19] MEDS ORDERED: Ertapenem 1,000 MG in 0.9 % Sodium Chloride Mini Bag 100 ML IVPB SCH (11:00)
[2018-10-19] MEDS: traMADol 50 MG TABLET PO PRN (12:54)
[2018-10-19 16:17] VITALS: BP 104/57
[2018-10-19] MEDS ORDERED: Famotidine 20 MG TABLET PO SCH (16:30)
--- NOTE | 2018-10-20 15:59 | Infectious Disease Progress No ---
Date of Encounter: 10/19/18 Time of Encounter: 15:56 - Assessment and Plan (1) Sepsis Status: Resolved had 2 sirs criteria on admission likely secondary to osteomyelitis or UTI or both Qualifiers: Sepsis type: sepsis due to unspecified organism Qualified Code(s): A41.9 - Sepsis, unspecified organism (2) Osteomyelitis of coccyx Status: Acute causative organism proteus MDR history of MRSA currently on vancomycin/zosyn Previous cultures reviewed. Patient only has gram-negative rods from his wounds. Stop the vancomycin and do the ertapenem. Discussed with the hospitalist team. Ertapenem for 6 weeks. While ertapenem we need to check weekly CBC, BMP, ESR and CRP Patient's wound will not improve unless we do aggressive wound care and probable plastic surgery for graft placement Continue doxycycline orally for history of cervical osteomyelitis with hardware present Duration of doxycycline indefinitely Follow-up with me in clinic in 2 weeks Prognosis guarded (3) Urinary tract infection Status: Acute Secondary to Proteus and Klebsiella pneumoniae multidrug resistant organism Continue ertapenem Qualifiers: Urinary tract infection type: site unspecified Hematuria presence: without hematuria Qualified Code(s): N39.0 - Urinary tract infection, site not specified (4) Decubitus ulcer, stage 4 with infection Status: Acute (5) Pressure ulcer of sacral region, stage 4 Status: Chronic (6) Epidural abscess Status: Acute /o with mrsa treated with IV vancomycin on doxycycline suppresive therapy indefinitely continue doxycycline 100 mg po bid (7) Sacral decubitus ulcer Status: Acute Qualifiers: Pressure injury stage: stage 4 Qualified Code(s): L89.154 - Pressure ulcer of sacral region, stage 4 (8) Paraplegia Status: Chronic - Subjective Interval history: Patient seen and examined. Appears comfortable area no acute distress. Nursing staff and the nursing seen us when the room about to change them so we turned the patient all looked at the wounds together. Wounds look viable with paying basis no obvious discharge but they are deep deep stage V with no signs of improvement based on how I have seen them before. Vital signs noted Labs reviewed Infect Dis PN-Objective Data - Labs CBC & Chem 7: 10/18/18 02:38 10/18/18 02:38 Cultures: Cultures 10/14/18 21:24 Blood Culture - Final Peripheral Venipuncture No growth. Final report. 10/14/18 21:24 Blood Culture - Final Peripheral Venipuncture No growth. Final report. 10/14/18 21:24 Urine Culture - Final Urine,[place] Klebsiella pneumoniae MDRO Proteus mirabilis Serology 10/17/18 10/17/18 10/16/18 Range/Units 15:55 15:52 07:30 Urine Color Yellow (Yellow) Urine Clarity Cloudy A (Clear) Urine pH 8.0 (5.0-8.0) pH Units Ur Specific [place] 1.006 L (1.010-1.025) Urine Protein 30 H (Neg-Trace) mg/dL Urine Glucose (UA) Normal (Normal) mg/dL Urine Ketones Trace H (Negative) mg/dL Urine Blood Small H (Negative) Urine Nitrite Negative (Negative) Urine Bilirubin Negative (Negative) Urine Urobilinogen Normal (Normal) mg/dL Ur Leukocyte Esterase Large H (Negative) Urine Microscopic RBC 15-30 H (0-3) per hpf Urine Microscopic WBC TNTC H (0-3) per hpf Ur Squamous Epith Cells None Seen (None-Few) per lpf Urine Bacteria None Seen (None-Few) per hpf Hyaline Casts None Seen (None-Few) per lpf Ur Culture Indicated? (NO) Nasal Screen MRSA (PCR) Negative (Negative) Stool Occult Blood Negative (Negative) 10/15/18 10/14/18 Range/Units 11:21 21:24 Urine Color Dark Yellow (Yellow) Urine Clarity Turbid A (Clear) Urine pH 5.5 (5.0-8.0) pH Units Ur Specific [place] 1.018 (1.010-1.025) Urine Protein 100 H (Neg-Trace) mg/dL Urine Glucose (UA) Normal (Normal) mg/dL Urine Ketones Trace H (Negative) mg/dL Urine Blood Large H (Negative) Urine Nitrite Positive A (Negative) Urine Bilirubin Negative (Negative) Urine Urobilinogen Normal (Normal) mg/dL Ur Leukocyte Esterase Large H (Negative) Urine Microscopic RBC 5-15 H (0-3) per hpf Urine Microscopic WBC TNTC H (0-3) per hpf Ur Squamous Epith Cells (None-Few) per lpf Urine Bacteria Moderate H (None-Few) per hpf Hyaline Casts (None-Few) per lpf Ur Culture Indicated? YES A (NO) Nasal Screen MRSA (PCR) Negative (Negative) Stool Occult Blood (Negative) Exam - Constitutional Vitals: Temp Pulse Resp BP Pulse Ox 98.6 F 106 15 104/57 99 10/19/18 16:11 10/19/18 16:11 10/19/18 16:11 10/19/18 16:11 10/19/18 16:11 General appearance: no acute distress, no febrile - Respiratory Respiratory exam: Present: CTAB. Absent: wheezes - Cardiovascular Cardiovascular exam: Present: RRR, +S1, +S2 - GI/Abdominal GI/Abdominal exam: Present: soft. Absent: tenderness - Back Exam Additional comments: Multiple decubitus ulcers at least 5 for each one diameter 5-6 cm stage V with no obvious pus or surrounding erythema. Good viable tissue at the bases but no granulation tissue noted - VTE Documentation of Mechanical Device: Intermittent pneumatic compression device Consult Discharge Plan - Plan Instructions: Urinary Tract Infection in Men (DC), Sepsis (DC) Referrals: NONE,PCP [Primary Care Provider] - ([facility]) Prescriptions: Collagenase Oint [Santyl] 1 appl TP DAILY 30 Days #3 tube Doxycycline Hyclate 100 mg PO BID 60 Days #90 capsule Ertapenem Sodium [Invanz] 1 gm IJ DAILY 45 Days #45 vial Ferrous Sulfate 325 mg PO BIDWM 30 Days #60 tablet Gabapentin [Neurontin] 600 mg PO TID 30 Days #90 capsule Magnesium Oxide [Mag-Ox] 400 mg PO DAILY 30 Days #30 tablet Sodium Hypochlorite 0.5% [Dakin's (Full-Strength 0.5%)] 1 appl TP DAILY 30 Days #3 bottle Tramadol HCl [Ultram] 50 mg PO Q8H PRN 10 Days #30 tablet PRN Reason: Pain
== END 2018-10-19 17:24 ==
LOC: 2ANU 21:11 → EMEROOARM 21:11 → SUATTDRO 10-15 02:41 → 2ANU 10-15 03:52
PROVIDERS: ADMIT Family Medicine; ATTEND Internal Medicine

== ENCOUNTER 2018-12-09 19:18 | Inpatient (IN) ==
[2018-12-09] MEDS ORDERED: 0.9 % Sodium Chloride 1,000 ML IVC ONE ×3 (20:04→23:45)
[2018-12-09] MEDS ORDERED: Piperacillin/Tazobactam 3.375 GM in 0.9 % Sodium Chloride Mini Bag 100 ML IVPB ONE (20:38)
[2018-12-09] MEDS ORDERED: Vancomycin (wt based) 1,000 MG VIAL IV ONE (20:39)
--- NOTE | 2018-12-09 20:42 | Emergency Department Note ---
Disposition Clinical Impression: Sacral decubitus ulcer, Weakness of both lower extremities, COPD (chronic obstructive pulmonary disease), Pressure ulcer of right heel, unstageable, Leg ulcer, Anemia, Tachycardia, Abnormal urinalysis Disposition: Admitted As Inpatient General Adult HPI - General Chief complaint: ED Fever Stated complaint: Fever Time Seen by Provider: 12/09/18 20:04 Source: patient, EMS Limitations: no limitations - History of Present Illness HPI Narrative: 53-year-old male comes in from the skilled nursing via EMS with concerns for fever. The patient has recently been treated with vancomycin and is on doxycycline currently. The patient denies any chest pain shortness of breath or abdominal pain no vomiting or diarrhea. He has known decubitus ulcer in the sacral area as well as the right heel and left leg. The patient is not known to be diabetic. The reports that he has a fever and high heart rate. There is no history of convulsion or confusion. The patient describes a history of spinal surgery secondary to injury with chronic weakness in the upper or lower extremities. There is no history of cough runny nose or pain or sore throat. The patient has an abdominal ostomy bag as well as a [place]ills[place] catheter in situ. Pain Scale: 8 - Related Data Home Medications Medication Instructions Recorded Confirmed Albuterol Neb [Proventil Neb] 2.5 mg IH Q6H PRN 07/01/18 10/15/18 Baclofen [Lioresal] 10 mg PO TID 07/01/18 10/15/18 Famotidine [Heartburn Prevention] 20 mg PO Q12H 07/01/18 10/15/18 Gabapentin [Neurontin] 600 mg PO TID 07/01/18 10/15/18 Heparin 5,000 unit SQ Q8H 07/01/18 10/15/18 Iron Polysaccharide Complex 150 mg PO DAILY 07/01/18 10/15/18 [Ferrex 150] Nortriptyline [Pamelor] 25 mg PO HS 07/01/18 10/15/18 Ascorbic Acid [Vitamin C] 500 mg PO BID 07/28/18 10/15/18 Budesonide/Formoterol 80/4.5 2 puff IH BID 07/28/18 10/15/18 [Symbicort 80/4.5] Lactulose [Enulose] 20 gm PO TIDWM 07/28/18 10/15/18 Lidocaine [Aspercreme] 1 each TP DAILY 07/28/18 10/15/18 Melatonin [Melatin] 3 mg PO HS 07/28/18 10/15/18 Multivitamin [Multivitamins] 1 each PO DAILY 07/28/18 10/15/18 OLANZapine [Zyprexa] 10 mg PO QPM 07/28/18 10/15/18 Zinc Sulfate 220 mg PO BID 07/28/18 10/15/18 Acetaminophen [Tylenol] 650 mg PO Q8H PRN 08/04/18 10/15/18 Amino Acids/Protein Hydrolys 30 ml PO BID 09/09/18 10/15/18 [Pro-Stat Awc Liquid] Buspirone HCl [Buspar] 5 mg PO TID 09/09/18 10/15/18 Valproic Acid [Depakene] 500 mg PO Q8H 09/18/18 10/15/18 Previous Rx's Medication Instructions Recorded Doxycycline Hyclate 100 mg PO BID 60 Days #90 capsule 10/19/18 Tramadol HCl [Ultram] 50 mg PO Q8H PRN 10 Days #30 tablet 10/19/18 Allergies Allergy/AdvReac Type Severity Reaction Status Date / Time No Known Allergies Allergy Verified 08/02/18 22:22 All systems ED: reviewed and negative except as stated. Past Medical History - Past Medical History Medical history: Reports: COPD, dementia, GERD, hepatitis, other Surgical history: Reports: non-contributory Psychiatric history: Reports: bipolar, schizophrenia - Social History Smoking Status: Current every day smoker Smokeless Tobacco Status: No Alcohol use: Reports: none Drug use: Reports: none Physical Exam - General Limitations: no limitations General appearance: alert, in no apparent distress - Head Head exam: atraumatic, normocephalic, normal inspection - Eye Eye exam: Present: normal appearance, PERRL, EOMI - ENT ENT exam: normal exam, normal oropharynx, mucous membranes moist - Neck Neck exam: Present: normal inspection, full ROM, trachea midline - Chest Chest inspection: Present: symmetric chest wall rise. Absent: tenderness - Respiratory Respiratory exam: Present: normal lung sounds bilaterally - Cardiovascular Cardiovascular exam: Present: normal rhythm, tachycardia - Abdominal Exam Abdominal exam: Present: soft, Non-Tender, normal bowel sounds, other (Ostomy bag noted). Absent: tenderness, distention, guarding, rebound, rigidity - Extremities Exam Extremities exam: Present: normal capillary refill, other (Right heel ulcer, left leg ulcer, or blackening of the skin crepitance or fluctuance.). Absent: pedal edema, joint swelling, calf tenderness - Expanded Lower Extremity Exam Neurovascular/Tendon exam: Present: normal capillary refill. Absent: motor deficit, sensory deficit, tendon deficit, extremity cold to touch, pallor - Back Exam Back exam: Present: full ROM, other (Very large sacral decubitus with complete skin breakdown and deep tissue penetration.). Absent: tenderness, CVA tenderness (L), vertebral tenderness - Neurological Exam Neurological exam: Present: alert, oriented X3, CN II-XII intact. Absent: motor sensory deficit - Psychiatric Psychiatric exam: Present: normal affect - Skin Skin exam: Absent: intact Course Vital Signs Temperature 99.5 F 12/09/18 19:33 Pulse Rate 120 12/09/18 19:33 Respiratory Rate 18 12/09/18 19:33 Blood Pressure 122/77 12/09/18 19:33 O2 Sat by Pulse Oximetry 98 12/09/18 19:33 Temperature 99.5 F 12/09/18 19:33 Pulse Rate 120 12/09/18 19:33 Respiratory Rate 20 12/09/18 23:34 Blood Pressure 98/56 12/09/18 23:34 O2 Sat by Pulse Oximetry 98 12/09/18 19:33 Oxygen Delivery Oxygen Delivery Room Air Medical Decision Making - [facility] Narrative Medical decision making narrative: The patient presented with concerns for fever from the skilled nursing. Per report he was recently treated with vancomycin is currently taking doxycycline. Clinical examination reveals a very large deep sacral decubitus ulcer with potential osteomyelitis, left leg ulcer and heel ulcer also noted. The patient low-grade temperature here but lactic acid and white count were negative. The patient had an element of tachycardia and was given IV fluids, blood cultures were sent. Vancomycin and Zosyn were initiated. Chest x-ray negative. Willis catheter noted with abnormal urinalysis. The patient may be developing early sepsis. Based on his tachycardia and marked sacral decubitus changes with recent antibiotic therapy and low-grade fever with multiple comorbidities including chronic debility and weakness in the extremities, I thought it would be appropriate to admit the patient to the hospital. CT pelvis has been ordered and is pending. I discussed the case with the hospitalist on-call who has accepted the patient to their care. The patient is agreeable. - Lab Data Lab results reviewed: Yes I reviewed the patient's lab results. Result diagrams: 12/09/18 20:27 12/09/18 20:27 Lab Results 12/09/18 12/09/18 12/09/18 Range/Units 20:27 20:27 20:27 WBC 10.9 (4.3-11.1) K/mcL RBC 3.41 L (4.19-5.50) M/mcL Hgb 8.2 L (12.9-16.9) g/dL Hct 26.8 L (37.5-50.1) % MCV 78.6 L (83.0-100.0) fL MCH 24.0 L (28.0-33.3) pg MCHC 30.6 L (31.6-35.5) g/dL RDW 17.0 H (11.5-14.5) % Plt Count 216 (140-400) K/mcL MPV 9.3 L (9.4-12.4) fL Immature Gran % 0.3 (0-4) % Seg Neutrophils % 63.4 % Lymphocytes % 23.8 % Monocytes % 8.2 % Eosinophils % 4.0 % Basophils % 0.3 % Neutrophils # 6.9 (1.6-8.9) K/mcL Lymphocytes # 2.6 (0.6-4.6) K/mcL Monocytes # 0.9 (0.0-1.3) K/mcL Eosinophils # 0.4 (0.0-0.6) K/mcL Basophils # 0.0 (0.0-0.2) K/mcL PT 13.7 H (9.4-12.1) Seconds INR 1.2 APTT 34.0 (26.0-36.0) Seconds Sodium 133 L (136-145) mEq/L Potassium 3.6 (3.5-5.1) mEq/L Chloride 101 (98-107) mEq/L Carbon Dioxide 27 (23-29) mEq/L BUN 12 (6-20) mg/dL Creatinine 0.67 L (0.70-1.30) mg/dL Est GFR ( Amer) > 60 (> 60) Est GFR (Non-Af Amer) > 60 (> 60) BUN/Creatinine Ratio 18 (6-26) Glucose 110 H (70-105) mg/dL Calculated Osmolality 276 L (280-300) Lactic Acid (0.5-2.2) mmol/L Calcium 9.3 (8.6-10.3) mg/dL Total Bilirubin 0.3 (0.3-1.0) mg/dL Direct Bilirubin 0.0 (0.0-0.2) mg/dL Indirect Bilirubin 0.3 (0.0-1.2) mg/dL AST 9 L (13-39) Units/L ALT 9 (7-52) Units/L Alkaline Phosphatase 76 (34-104) Units/L Troponin I < 0.03 (< 0.04) ng/mL C-Reactive Protein (Less than 10) mg/L Serum Total Protein 6.7 (6.4-8.9) g/dL Albumin 2.9 L (3.5-5.7) g/dL Globulin 3.8 H (2.4-3.5) g/dL Albumin/Globulin Ratio 0.8 L (1.1-2.2) Ur Specimen Adequacy Urine Color (Yellow) Urine Clarity (Clear) Urine pH (5.0-8.0) pH Units Ur Specific [place] (1.010-1.025) Urine Protein (Neg-Trace) mg/dL Urine Glucose (UA) (Normal) mg/dL Urine Ketones (Negative) mg/dL Urine Blood (Negative) Urine Nitrite (Negative) Urine Bilirubin (Negative) Urine Urobilinogen (Normal) mg/dL Ur Leukocyte Esterase (Negative) Urine Microscopic RBC (0-3) per hpf Urine Microscopic WBC (0-3) per hpf Urine Bacteria (None-Few) per hpf Urine Mucus (Few) Urine Yeast (None Seen) per hpf Ur Culture Indicated? (NO) 12/09/18 12/09/18 12/09/18 Range/Units 20:27 20:27 22:01 WBC (4.3-11.1) K/mcL RBC (4.19-5.50) M/mcL Hgb (12.9-16.9) g/dL Hct (37.5-50.1) % MCV (83.0-100.0) fL MCH (28.0-33.3) pg MCHC (31.6-35.5) g/dL RDW (11.5-14.5) % Plt Count (140-400) K/mcL MPV (9.4-12.4) fL Immature Gran % (0-4) % Seg Neutrophils % % Lymphocytes % % Monocytes % % Eosinophils % % Basophils % % Neutrophils # (1.6-8.9) K/mcL Lymphocytes # (0.6-4.6) K/mcL Monocytes # (0.0-1.3) K/mcL Eosinophils # (0.0-0.6) K/mcL Basophils # (0.0-0.2) K/mcL PT (9.4-12.1) Seconds INR APTT (26.0-36.0) Seconds Sodium (136-145) mEq/L Potassium (3.5-5.1) mEq/L Chloride (98-107) mEq/L Carbon Dioxide (23-29) mEq/L BUN (6-20) mg/dL Creatinine (0.70-1.30) mg/dL Est GFR ( Amer) (> 60) Est GFR (Non-Af Amer) (> 60) BUN/Creatinine Ratio (6-26) Glucose (70-105) mg/dL Calculated Osmolality (280-300) Lactic Acid 1.2 (0.5-2.2) mmol/L Calcium (8.6-10.3) mg/dL Total Bilirubin (0.3-1.0) mg/dL Direct Bilirubin (0.0-0.2) mg/dL Indirect Bilirubin (0.0-1.2) mg/dL AST (13-39) Units/L ALT (7-52) Units/L Alkaline Phosphatase (34-104) Units/L Troponin I (< 0.04) ng/mL C-Reactive Protein 105 H (Less than 10) mg/L Serum Total Protein (6.4-8.9) g/dL Albumin (3.5-5.7) g/dL Globulin (2.4-3.5) g/dL Albumin/Globulin Ratio (1.1-2.2) Ur Specimen Adequacy See below A Urine Color Yellow (Yellow) Urine Clarity Cloudy A (Clear) Urine pH 5.5 (5.0-8.0) pH Units Ur Specific [place] 1.020 (1.010-1.025) Urine Protein 30 H (Neg-Trace) mg/dL Urine Glucose (UA) Normal (Normal) mg/dL Urine Ketones Negative (Negative) mg/dL Urine Blood Large H (Negative) Urine Nitrite Negative (Negative) Urine Bilirubin Negative (Negative) Urine Urobilinogen Normal (Normal) mg/dL Ur Leukocyte Esterase Large H (Negative) Urine Microscopic RBC 0-3 (0-3) per hpf Urine Microscopic WBC 15-30 H (0-3) per hpf Urine Bacteria Few (None-Few) per hpf Urine Mucus Few (Few) Urine Yeast Moderate H (None Seen) per hpf Ur Culture Indicated? YES A (NO) - Radiology Data Radiology results reviewed: Yes I reviewed the patient's radiology results.
[2018-12-09 20:47] LABS: Basophils % 0.3 %; Eosinophils # 0.4 K/mcL (0.0-0.6); Hematocrit 26.8 % (37.5-50.1); Hemoglobin 8.2 g/dL (12.9-16.9); Immature Granulocytes % 0.3 % (0-4); Lymphocytes # 2.6 K/mcL (0.6-4.6); Lymphocytes % 23.8 %; Mean Corpuscular HGB Conc 30.6 g/dL (31.6-35.5); Mean Corpuscular Volume 78.6 fL (83.0-100.0); Mean Platelet Volume 9.3 fL (9.4-12.4); Monocytes # 0.9 K/mcL (0.0-1.3); Monocytes % 8.2 %; Neutrophils # 6.9 K/mcL (1.6-8.9); Platelet Count 216 K/mcL (140-400); Red Blood Count 3.41 M/mcL (4.19-5.50); Segmented Neutrophils % 63.4 %
[2018-12-09 20:56] LABS: INR 1.2; Prothrombin Time 13.7 Seconds (9.4-12.1)
[2018-12-09 21:08] LABS: Alanine Aminotransferase 9 Units/L (7-52); Albumin 2.9 g/dL (3.5-5.7); Albumin/Globulin Ratio 0.8 (1.1-2.2); Alkaline Phosphatase 76 Units/L (34-104); Aspartate Amino Transferase 9 Units/L (13-39); BUN/Creatinine Ratio 18 (6-26); Bilirubin,Indirect 0.3 mg/dL (0.0-1.2); Bilirubin,Total 0.3 mg/dL (0.3-1.0); Blood Urea Nitrogen 12 mg/dL (6-20); Calcium 9.3 mg/dL (8.6-10.3); Carbon Dioxide 27 mEq/L (23-29); Chloride 101 mEq/L (98-107); Globulin 3.8 g/dL (2.4-3.5); Glucose 110 mg/dL (70-105); Osmolality,Calculated 276 (280-300); Potassium 3.6 mEq/L (3.5-5.1); Sodium 133 mEq/L (136-145); Total Protein 6.7 g/dL (6.4-8.9); eGFR For Non-African Americans > 60 (> 60)
[2018-12-09 21:09] LABS: Troponin I < 0.03 ng/mL (< 0.04)
[2018-12-09 22:10] LABS: Bilirubin,Urine Negative (Negative); Blood,Urine Large (Negative); Clarity,Urine Cloudy (Clear); Color,Urine Yellow (Yellow); Glucose,Urine (UA) Normal (Normal); Ketones,Urine Negative (Negative); Leukocyte Esterase,Urine Large (Negative); Nitrite,Urine Negative (Negative); PH,Urine 5.5 pH Units (5.0-8.0); Protein,Urine 30 mg/dL (Neg-Trace); Urobilinogen,Urine Normal (Normal)
[2018-12-09 22:13] LABS: WBC,Urine 15-30 per hpf (0-3)
[2018-12-09 22:14] LABS: Mucus,Urine Few (Few); RBC,Urine 0-3 per hpf (0-3); Yeast,Urine Moderate per hpf (None Seen)
[2018-12-09 22:15] LABS: Bacteria,Urine Few per hpf (None-Few)
[2018-12-09] MEDS ORDERED: Isovue-370 500 ML BOTTLE IVP ONE (22:49)
[2018-12-09] MEDS ORDERED: Aminoglycoside Consult 1 EACH MC ONE (23:36)
[2018-12-10] MEDS ORDERED: Acetaminophen 325 MG TABLET PO PRN (08:32)
[2018-12-10] MEDS ORDERED: Naloxone 0.4 MG/ML INJ IVP PRN (08:32)
[2018-12-10] MEDS ORDERED: Albuterol 2.5 MG/3 ML NEBULIZER IH PRN (08:37)
[2018-12-10] MEDS ORDERED: traMADol 50 MG TABLET PO PRN (08:37)
--- NOTE | 2018-12-10 08:52 | Internal Med History&Physical ---
Date of Encounter: 12/10/18 Time of Encounter: 08:44 Internal Medicine - H&P: HPI Chief complaint: fever Admitted From: Long-term Nursing Facility Plans for Post Hospital Care: [facility] [employer] Care History of present illness: Mr. Carrasco is a 53 year old male who has PMHx significant for paraplegia, chronic osteomyelitis, multiple decubitus ulcers, chronic anemia, mood disorders, epidural abscess, COPD, GERD who presented to the ED from [facility] for 2 dasy of fever. Patient has multiple chronic decubitus to the sacral, wound culture growing gram-negative bacteria he was just a discharge on October 19, 2018 with Invanz IV for 6 weeks. Patient has a PICC line, dwelling catheter, colostomy multiple decubitus developed low-grade fever in the facility for 2 days. He is alert oriented 3, denies productive cough, muscle aching, denies abdominal pain. wound examined with nurse. Large sacral decubitus with pus emperatriz justin. He has 2 set of blood culture done. UA showed UTI, CXR is negative. will do culture from PICC, wound. admit for possible UTI, and decubitus infection. Past Med Surg Social Fam HX - Past Medical History Medical history: COPD, dementia, GERD, hepatitis, other Additional medical history: spinal stenosis, anemia, encephalopathy, GI hemorrhage,MRSA, osteomyelitis, pressure ulcer Psychiatric history: bipolar, schizophrenia - Past Surgical History Surgical History: non-contributory Additional surgical history: back/spine surgery, evacuation of epidural abscess, I&D, C5-T1 laminectomy December 2017 - Social History Smoking Status: Current every day smoker Smokeless Tobacco Status: No Alcohol use: none Drug use: none - Family History Father Living Status: Hx Family Cardiac Disorders: Yes ([place]) Mother Living Status: Hx Family Cancer: Yes Internal Medicine - H&P: Meds Albuterol Neb [Proventil Neb] 2.5 mg IH Q6H PRN 07/01/18 [History] Baclofen [Lioresal] 10 mg PO TID 07/01/18 [History] Famotidine [Heartburn Prevention] 20 mg PO Q12H 07/01/18 [History] Gabapentin [Neurontin] 600 mg PO TID 07/01/18 [History] Heparin 5,000 unit SQ Q8H 07/01/18 [History] Iron Polysaccharide Complex [Ferrex 150] 150 mg PO DAILY 07/01/18 [History] Nortriptyline [Pamelor] 25 mg PO HS 07/01/18 [History] Ascorbic Acid [Vitamin C] 500 mg PO BID 07/28/18 [History] Budesonide/Formoterol 80/4.5 [Symbicort 80/4.5] 2 puff IH BID 07/28/18 [History] Lactulose [Enulose] 20 gm PO TIDWM 07/28/18 [History] Lidocaine [Aspercreme] 1 each TP DAILY 07/28/18 [History] Melatonin [Melatin] 3 mg PO HS 07/28/18 [History] Multivitamin [Multivitamins] 1 each PO DAILY 07/28/18 [History] OLANZapine [Zyprexa] 10 mg PO QPM 07/28/18 [History] Zinc Sulfate 220 mg PO BID 07/28/18 [History] Acetaminophen [Tylenol] 650 mg PO Q8H PRN 08/04/18 [History] Amino Acids/Protein Hydrolys [Pro-Stat Awc Liquid] 30 ml PO BID 09/09/18 [History] Buspirone HCl [Buspar] 5 mg PO TID 09/09/18 [History] Valproic Acid [Depakene] 500 mg PO Q8H 09/18/18 [History] Doxycycline Hyclate 100 mg PO BID 60 Days #90 capsule 10/19/18 [Rx] Tramadol HCl [Ultram] 50 mg PO Q8H PRN 10 Days #30 tablet 10/19/18 [Rx] Allergy/AdvReac Type Severity Reaction Status Date / Time No Known Allergies Allergy Verified 08/02/18 22:22 All Systems PM: A 10-system review of systems was performed and is negative for pertinent findings except as documented above in the HPI. - Constitutional Vitals: Temp Pulse Resp BP Pulse Ox 97.5 F L 97 20 98/62 98 12/10/18 07:58 12/10/18 07:58 12/10/18 07:58 12/10/18 07:58 12/10/18 07:58 General appearance: Present: A&O X 3 Exam: CONSTITUTIONAL: Patient appears as an age appropriate male well developed, in no acute distress. EYES Clear sclerae, bilateral pupils are equal, reactive to light and accommodation. Extraocular movements are intact RESPIRATORY: No accessory muscle use, bilateral clear to auscultation, no wheezing, no crackles/rales. CARDIOVASCULAR: Regular heart rate, normal S1 and S2, no murmurs GASTROINTESTINAL: bowel sounds present, soft, no tenderness. No hepatosplenomegaly. No bilateral CVA tenderness MUSCULOSKELETAL: Joints in normal range of motion, no clubbing, no edema, no cyanosis. Bilateral peripheral pulses 2+ LYMPHATIC no lymphadenopathy in neck, groin and axilla bilaterally, no thyromegaly. NEUROLOGIC: CN II to XII are grossly intact, paraplegia PSYCHIATRIC: Oriented x3, with good insight, mood is euthymic. No hallucinations or delusions. SKIN: Skin warm and dry, no rashes, multiple open wound to sacrum, ankle, heel Internal Med - H&P Results - Labs CBC & Chem 7: 12/09/18 20:27 12/09/18 20:27 Labs: Short CBC 12/09/18 Range/Units 20:27 WBC 10.9 (4.3-11.1) K/mcL Hgb 8.2 L (12.9-16.9) g/dL Hct 26.8 L (37.5-50.1) % Plt Count 216 (140-400) K/mcL Neutrophils # 6.9 (1.6-8.9) K/mcL BMP 12/09/18 20:27 Sodium 133 L Potassium 3.6 Chloride 101 Carbon Dioxide 27 BUN 12 Creatinine 0.67 L Glucose 110 H Calcium 9.3 Cardiac Enzymes 12/09/18 Range/Units 20:27 Troponin I < 0.03 (< 0.04) ng/mL Liver Function 12/09/18 Range/Units 20:27 Total Bilirubin 0.3 (0.3-1.0) mg/dL Direct Bilirubin 0.0 (0.0-0.2) mg/dL AST 9 L (13-39) Units/L ALT 9 (7-52) Units/L Alkaline Phosphatase 76 (34-104) Units/L Albumin 2.9 L (3.5-5.7) g/dL Urine 12/09/18 Range/Units 22:01 Urine Color Yellow (Yellow) Urine Clarity Cloudy A (Clear) Urine pH 5.5 (5.0-8.0) pH Units Ur Specific [place] 1.020 (1.010-1.025) Urine Protein 30 H (Neg-Trace) mg/dL Urine Glucose (UA) Normal (Normal) mg/dL - Impressions ITS Impressions Chest X-Ray 12/09/18 20:05 IMPRESSION: Stable chest with no evidence of acute disease. D/ / Brice Perry MD / Brice Perry MD Interpreting Provider: Brice Perry MD Pelvis CT 12/09/18 22:49 IMPRESSION: Findings suggest sacrococcygeal chronic osteomyelitis associated with decubitus ulcer, as seen previously. No abscess visualized. D/ / Inocencio Hampton MD / Inocencio Hampton MD Interpreting Provider: Inocencio Hampton MD - Assessment and plan (1) Fever Current Visit: Yes Status: Acute Assessment and plan: Patient did developed fever for 2 days, he has multiple sources for infection including PICC line, UTI, decubitus infection, we will draw culture from PICC line, do the wound culture, UC and BC are done in ER He was on Invanz for osteo will change to IV vancomycin and zosyn, consult ID Qualifiers: Fever type: malignant hyperthermia due to anesthesia Encounter type: initial encounter Qualified Code(s): T88.3XXA - Malignant hyperthermia due to anesthesia, initial encounter (2) Sacral decubitus ulcer Current Visit: Yes Status: Chronic Assessment and plan: patient has chronic stage 4 sacral decubitus with osteomyelitis, was on IV INVAnz at [facility] from 10/19--- for 6 weeks will consult wound care Qualifiers: Pressure injury stage: stage 4 Qualified Code(s): L89.154 - Pressure ulcer of sacral region, stage 4 (3) COPD (chronic obstructive pulmonary disease) Current Visit: Yes Status: Chronic Assessment and plan: no signs for acute exacerbation, contineu home regimen Qualifiers: COPD type: unspecified COPD Qualified Code(s): J44.9 - Chronic obstructive pulmonary disease, unspecified (4) Hepatitis C Current Visit: Yes Status: Chronic Qualifiers: Viral hepatitis chronicity: unspecified Hepatic coma status: without hepatic coma Qualified Code(s): B19.20 - Unspecified viral hepatitis C without hepatic coma (5) Tobacco use Current Visit: Yes Status: Chronic Assessment and plan: smoking cessation discussed, he has cut down to few cig daily (6) Mood disorder Current Visit: Yes Status: Chronic Assessment and plan: conitneu home meds (7) Pressure ulcer of right heel, unstageable Current Visit: Yes Status: Acute (8) Pressure ulcer of left ankle, stage 3 Current Visit: Yes Status: Chronic Assessment and plan: consult wound care (9) Osteomyelitis of sacrum Current Visit: Yes Status: Chronic Assessment and plan: will consult ID, CT was done, wound care consult, may need debridement (10) Paraplegia Current Visit: Yes Status: Chronic Assessment and plan: supportive care (11) Decubitus ulcer, stage 4 with infection Current Visit: No Status: Acute (12) Complicated UTI (urinary tract infection) Current Visit: Yes Status: Acute Assessment and plan: recurrent UTI from chronic dwelling mccallum pending culture, on zosyn (13) DVT prophylaxis Current Visit: Yes Status: Acute Assessment and plan: lovenox - Time Spent With Patient Total time spent is greater than 50% in coordination of care (as documented) at patient's floor/unit and/or counseling patient:
[2018-12-10] MEDS ORDERED: LIDOCAINE TP SCH (09:00)
[2018-12-10] MEDS ORDERED: [UNRECOGNIZED DRUG - OTHER] PO SCH (09:00)
[2018-12-10] MEDS ORDERED: PROTEIN HYDROLYS PO SCH (09:00)
[2018-12-10] MEDS ORDERED: AMINO ACIDS PO SCH (09:00)
[2018-12-10] MEDS ORDERED: DOXYCYCLINE HYCLATE 100 MG PO SCH (09:00)
[2018-12-10] MEDS: Budesonide/Formoterol 80/4.5 MDI IH SCH ×2 (11:13→20:14)
[2018-12-10] MEDS: Baclofen 10 MG TABLET PO SCH ×3 (12:04→20:25)
[2018-12-10] MEDS: Zinc Sulfate 220 MG CAPSULE PO SCH ×2 (12:04→20:23)
[2018-12-10] MEDS: Gabapentin 300 MG CAPSULE PO SCH ×3 (12:04→20:25)
[2018-12-10] MEDS: Ascorbic Acid 500 MG TABLET PO SCH ×2 (12:04→20:23)
[2018-12-10] MEDS: Lactulose Oral Soln 20 GM/30 ML UDC PO SCH ×2 (12:05→16:08)
[2018-12-10] MEDS: Iron Polysaccharide Complex 150 MG CAPSULE PO SCH (12:05)
[2018-12-10] MEDS: Multivit/Ca/Min/Fe/FA 1 TAB TABLET PO SCH (12:05)
[2018-12-10] MEDS: Piperacillin/Tazobactam 3.375 GM in 0.9 % Sodium Chloride Mini Bag 100 ML IVPB SCH ×2 (12:06→16:53)
[2018-12-10] MEDS: Valproic Acid 250 MG CAPSULE PO SCH ×3 (12:12→20:25)
--- NOTE | 2018-12-10 13:38 | Infectious Disease Consult ---
Date of Encounter: 12/10/18 Time of Encounter: 12:56 Assessment and Plan (1) Complicated UTI (urinary tract infection) Status: Acute Assessment and plan: Causative organism not clear. Urine cultures obtained results pending Previous urine cultures 10/14/2018: Klebsiella pneumoniae S: Carbapnem and zosyn (otherwise fatima resistant) and Proteus mirabilis S: Ertapenem, imipenem and Zosyn (otherwise fatima resistant). Placed patient in contact isolation Agree with Zosyn 3.375 g IV every 8 hours for now since normal creatinine clearance Duration of treatment likely 14 days depending on the clinical picture Based on the urine culture results might switch the patient to another IV antibiotics that will be easier to use as an outpatient setting. (2) Sacral decubitus ulcer Status: Chronic Qualifiers: Pressure injury stage: stage 4 Qualified Code(s): L89.154 - Pressure ulcer of sacral region, stage 4 (3) Osteomyelitis of coccyx Status: Acute Assessment and plan: Causative organism not clear No cultures were ever obtained but based on urine culture we decided to treat previously with ertapenem Received ertapenem IV (10/14/2018 - 12/03/2018) CT pelvis 12/10/2018: Sacrococcygeal chronic osteomyelitis associated with decubitus ulcer, seen previously. No abscess or fluid collection visualized. Check ESR, CRP, CBC and BMP Patient is on Zosyn for complicated UTI Chronic CT findings are expected in patient with chronic osteomyelitis that just finished treatment one week prior to admission Based on the left findings and inflammatory markers, consider a bone biopsy and send biopsy for cultures including routine, aerobic, anaerobic, fungal and AFB. If we can do this prior to initiating broad-spectrum antibiotics he might have a better culture results and would be able to tailor antibiotics accordingly. Prognosis guarded (4) Paraplegia Status: Chronic Infectious Disease HPI - Data of Consult Requesting Physician: Nick Jose MD Primary Care Provider: PCP NONE - Consult Narrative Reason for consult: Chronic osteomyelitis History of present illness: Mr. Carrasco is a 53 year old male presenting with fever consulted to ID for chronic osteomyelitis. PMH - History of sacral decubitus ulcer, weakness of both lower extremities, COPD (chronic obstructive pulmonary disease), pressure ulcer of right heel, leg ulcer, anemia, tachycardia, abnormal urinalysis - 12/07/18 Recently seen at [facility] ED for acute hematuria in his mccallum bag. Urinalysis showed negative nitrites, small luekocyte esterase, many squamousu epithelial cells. Urine was not cultured at the time and he was given 1 L of IVF - 12/03/18 Presented to [facility] for retained tubing and balloon from his mccallum catheter after he ran over it with his motorized wheelchair. Bladder U/S showed a possible blood clot but no evidence of mccallum catheter baloon or tip. CT of pelvis did not reveal foreign bodies in penis. He was discharged following results. - 10/19/19 Recently admitted to [facility] on 10/14 for sepsis secondary to osteomyelitis and or UTI where he was put on vancomycin/zosyn. Urine cultures showed klebseilla MRDO, and proteus mirabellis. Discharged on ertapenem for 6 weeks and doxycycline (for hx of cervical osteomyelitis w/ hardware) indefinitely. Presentation - 12/09/18 Patient presented to ED from half-way with complaints of low grade fever for 2 days. - Urinalysis with blood, leukocyte esterase, microscopic WBC. Culture sent in but not in system. - Vitals showed 99.5F, P120, RR 18-20, BP 122/77, O2 98%. - Labs WBC 10.9, Hgb 8.2, lactic acid 1.2, creatinine clearance 133.28. 2x peripheral IV blood cultures ordered. 2x PICC line cultures were ordered. - Imaging showed CXR negative for acute disease CT pelvis w/ contrast showed sacral decubitis ulcer with bony sclerosis and erosive changes, no abscess visualized. - PE showed large sacral decubitis ulcer with pus draining. - Meds: Zosyn 3.375 and vancoymcin started Currently patient has a PICC line, indwelling catheter due to paraplegia, colostomy, multiple decubitus ulcers. Today - Vitals: 98.2F, P108, RR17, BP 106/62, 96% of room air. - no CBC or BMP ordered for today, creatinine clearance 133.28 - ABX: Zosyn 3.375 Q8HR, Vancoymcin BID CC: Nick Jose MD Past Med Surg Social Fam HX - Past Medical History Medical history: COPD, dementia, GERD, hepatitis, other Additional medical history: spinal stenosis, anemia, encephalopathy, GI hemorrhage,MRSA, osteomyelitis, pressure ulcer Psychiatric history: bipolar, schizophrenia - Past Surgical History Surgical History: non-contributory Additional surgical history: back/spine surgery, evacuation of epidural abscess, I&D, C5-T1 laminectomy December 2017 - Social History Smoking Status: Current every day smoker Smokeless Tobacco Status: No Alcohol use: none Drug use: none - Family History Father Living Status: Hx Family Cardiac Disorders: Yes ([place]) Mother Living Status: Hx Family Cancer: Yes Infectious Disease-CN:Meds RX: Albuterol Neb [Proventil Neb] 2.5 mg IH Q6H PRN 07/01/18 [History] RX: Baclofen [Lioresal] 10 mg PO TID 07/01/18 [History] RX: Famotidine [Heartburn Prevention] 20 mg PO Q12H 07/01/18 [History] RX: Gabapentin [Neurontin] 600 mg PO TID 07/01/18 [History] RX: Heparin 5,000 unit SQ Q8H 07/01/18 [History] RX: Iron Polysaccharide Complex [Ferrex 150] 150 mg PO DAILY 07/01/18 [History] RX: Nortriptyline [Pamelor] 25 mg PO HS 07/01/18 [History] RX: Ascorbic Acid [Vitamin C] 500 mg PO BID 07/28/18 [History] RX: Budesonide/Formoterol 80/4.5 [Symbicort 80/4.5] 2 puff IH BID 07/28/18 [History] RX: Lactulose [Enulose] 20 gm PO TIDWM 07/28/18 [History] RX: Lidocaine [Aspercreme] 1 each TP DAILY 07/28/18 [History] RX: Melatonin [Melatin] 3 mg PO HS 07/28/18 [History] RX: Multivitamin [Multivitamins] 1 each PO DAILY 07/28/18 [History] RX: OLANZapine [Zyprexa] 10 mg PO QPM 07/28/18 [History] RX: Zinc Sulfate 220 mg PO BID 07/28/18 [History] RX: Acetaminophen [Tylenol] 650 mg PO Q8H PRN 08/04/18 [History] RX: Amino Acids/Protein Hydrolys [Pro-Stat Awc Liquid] 30 ml PO BID 09/09/18 [History] RX: Buspirone HCl [Buspar] 5 mg PO TID 09/09/18 [History] RX: Valproic Acid [Depakene] 500 mg PO Q8H 09/18/18 [History] RX: Doxycycline Hyclate 100 mg PO BID 60 Days #90 capsule 10/19/18 [Rx] RX: Tramadol HCl [Ultram] 50 mg PO Q8H PRN 10 Days #30 tablet 10/19/18 [Rx] Allergy/AdvReac Type Severity Reaction Status Date / Time No Known Allergies Allergy Verified 08/02/18 22:22 Exam - Constitutional Vitals: Temp Pulse Resp BP Pulse Ox 98.4 F 103 18 100/69 95 12/10/18 11:01 12/10/18 11:01 12/10/18 11:15 12/10/18 11:01 12/10/18 11:15 - Head Head exam: Present: atraumatic, normal inspection - Eye Eye exam: Present: EOMI, normal appearance - Neck Neck exam: Present: full ROM, normal inspection - Respiratory Respiratory exam: Present: CTAB. Absent: rales, respiratory distress, stridor, wheezes - Cardiovascular Cardiovascular exam: Present: RRR, +S1, +S2 - GI/Abdominal Additional comments: Ostomy in abdomen. NT/ND. - Extremities Exam Extremities exam: Present: normal capillary refill, normal inspection - Expanded Neurological Exam Speech: Present: fluid speech Sensory exam: lower extremity light touch: Abnormal Left, Abnormal Right, lower extremity pin prick: Abnormal Left, Abnormal Right, lower extremity temperature: Abnormal Left, Abnormal Right, upper extremity light touch: Normal, Abnormal Left, upper extremity pin prick: Normal, Abnormal Left Neuro motor strength exam: LUE: 3, RUE: 3, LLE: 0, RLE: 0 - Psychiatric Psychiatric exam: Present: normal affect, normal mood - Skin Skin exam: Present: dry, intact, warm Infectious Disease CN: Results - Labs CBC & Chem 7: 12/11/18 09:45 12/11/18 05:30 Cultures: Cultures 12/10/18 08:34 Blood Culture - Preliminary Peripheral Central Cath, Picc Culture is incubating and being continuously monitored for growth. Final report to follow. 12/09/18 20:27 Blood Culture - Preliminary Peripheral Venipuncture Culture is incubating and being continuously monitored for growth. Final report to follow. 12/09/18 20:27 Blood Culture - Preliminary Peripheral Venipuncture Culture is incubating and being continuously monitored for growth. Final report to follow. Serology: Serology 12/09/18 Range/Units 22:01 Ur Specimen Adequacy See below A Urine Color Yellow (Yellow) Urine Clarity Cloudy A (Clear) Urine pH 5.5 (5.0-8.0) pH Units Ur Specific [place] 1.020 (1.010-1.025) Urine Protein 30 H (Neg-Trace) mg/dL Urine Glucose (UA) Normal (Normal) mg/dL Urine Ketones Negative (Negative) mg/dL Urine Blood Large H (Negative) Urine Nitrite Negative (Negative) Urine Bilirubin Negative (Negative) Urine Urobilinogen Normal (Normal) mg/dL Ur Leukocyte Esterase Large H (Negative) Urine Microscopic RBC 0-3 (0-3) per hpf Urine Microscopic WBC 15-30 H (0-3) per hpf Urine Bacteria Few (None-Few) per hpf Urine Mucus Few (Few) Urine Yeast Moderate H (None Seen) per hpf Ur Culture Indicated? YES A (NO) Consult Discharge Plan - Plan Referrals: NONE,PCP [Primary Care Provider] - - Attending Attestation I examined this patient and my medical decision-making was reviewed with the Resident Physician. I agree with the documented findings, disposition and treatment plan as described except to the extent set forth below. This is an addendum to original report dictated by resident physician. Please refer to resident's note for full detail. Patient is a 53-year-old gentleman who presented here as a transfer from the half-way after currently has a fever at the half-way. Patient tells me he did not even know he had a fever. Denied any rigors denies any chills denies any complaints. Review of system is negative for any headache or URI symptoms. Patient denies any sinus pressure or runny nose or rhinorrhea. No sore throat. Patient denies any cough chest pain or shortness of breath it. Patient denies any nausea or vomiting diarrhea or constipation or abdominal pain. Patient denies any muscle ache or joint pain or swelling. When we talked to the patient he did not have any symptoms and he thinks probably the fever is from his wound. I asked if she saw plastics at [facility] and he told me he did but he has not been to go that route. The asked him why, he said because the asked him to quit smoking and he is not willing to do that. (1) Complicated UTI (urinary tract infection) Status: Acute Assessment and plan: Causative organism not clear. Urine cultures obtained results pending Previous urine cultures 10/14/2018: Klebsiella pneumoniae S: Carbapnem and zosyn (otherwise fatima resistant) and Proteus mirabilis S: Ertapenem, imipenem and Zosyn (otherwise fatima resistant). Placed patient in contact isolation Agree with Zosyn 3.375 g IV every 8 hours for now since normal creatinine clearance Duration of treatment likely 14 days depending on the clinical picture Based on the urine culture results might switch the patient to another IV antibiotics that will be easier to use as an outpatient setting. (2) Sacral decubitus ulcer Status: Chronic Qualifiers: Pressure injury stage: stage 4 Qualified Code(s): L89.154 - Pressure ulcer of sacral region, stage 4 (3) Osteomyelitis of coccyx Status: Acute Assessment and plan: Causative organism not clear No cultures were ever obtained but based on urine culture we decided to treat previously with ertapenem Received ertapenem IV (10/14/2018 - 12/03/2018) CT pelvis 12/10/2018: Sacrococcygeal chronic osteomyelitis associated with decubitus ulcer, seen previously. No abscess or fluid collection visualized. Check ESR, CRP, CBC and BMP Patient is on Zosyn for complicated UTI Chronic CT findings are expected in patient with chronic osteomyelitis that just finished treatment one week prior to admission Based on the left findings and inflammatory markers, consider a bone biopsy and send biopsy for cultures including routine, aerobic, anaerobic, fungal and AFB. If we can do this prior to initiating broad-spectrum antibiotics he might have a better culture results and would be able to tailor antibiotics accordingly. Prognosis guarded
[2018-12-10] MEDS: Famotidine 20 MG TABLET PO SCH (16:06)
[2018-12-10] MEDS: OLANZapine 10 MG TAB.RAPDIS PO SCH (16:52)
[2018-12-10] MEDS: Doxycycline 100 MG CAPSULE PO SCH ×2 (16:53→20:23)
[2018-12-10] MEDS ORDERED: *HR* OxyCODONE/APAP 5/325 TABLET PO PRN (17:51)
[2018-12-10] MEDS: Melatonin 3 MG TABLET PO SCH (20:23)
--- NOTE | 2018-12-10 22:22 | Electrocardiograph Report ---
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
[2018-12-11] MEDS: Piperacillin/Tazobactam 3.375 GM in 0.9 % Sodium Chloride Mini Bag 100 ML IVPB SCH ×4 (00:31→22:45)
[2018-12-11] MEDS: *HR* Enoxaparin 40 MG/0.4 ML SYRINGE SQ SCH (05:12)
[2018-12-11 06:19] LABS: BUN/Creatinine Ratio 16 (6-26); Blood Urea Nitrogen 11 mg/dL (6-20); Calcium 9.3 mg/dL (8.6-10.3); Carbon Dioxide 26 mEq/L (23-29); Chloride 106 mEq/L (98-107); Glucose 84 mg/dL (70-105); Magnesium 1.2 mg/dL (1.6-2.6); Osmolality,Calculated 289 (280-300); Sodium 140 mEq/L (136-145); eGFR For Non-African Americans > 60 (> 60)
[2018-12-11] MEDS ORDERED: traMADol 50 MG TABLET PO PRN (08:43)
--- NOTE | 2018-12-11 08:44 | Infectious Disease Progress No ---
Date of Encounter: 12/11/18 Time of Encounter: 08:42 - Assessment and Plan (1) Complicated UTI (urinary tract infection) Current Visit: Yes Status: Acute Causative organism not clear. Urine cultures obtained results pending Previous urine cultures 10/14/2018: Klebsiella pneumoniae S: Carbapnem and zosyn (otherwise fatima resistant) and Proteus mirabilis S: Ertapenem, imipenem and Zosyn (otherwise fatima resistant). Placed patient in contact isolation Agree with Zosyn 3.375 g IV every 8 hours for now since normal creatinine clearance Duration of treatment likely 14 days depending on the clinical picture Based on the urine culture results might switch the patient to another IV antibiotics that will be easier to use as an outpatient setting. (2) Sacral decubitus ulcer Current Visit: Yes Status: Chronic Qualifiers: Pressure injury stage: stage 4 Qualified Code(s): L89.154 - Pressure ulcer of sacral region, stage 4 (3) Osteomyelitis of coccyx Current Visit: No Status: Acute Causative organism not clear No cultures were ever obtained but based on urine culture we decided to treat previously with ertapenem Received ertapenem IV (10/14/2018 - 12/03/2018) CT pelvis 12/10/2018: Sacrococcygeal chronic osteomyelitis associated with decubitus ulcer, seen previously. No abscess or fluid collection visualized. Check ESR, CRP, CBC and BMP Patient is on Zosyn for complicated UTI Chronic CT findings are expected in patient with chronic osteomyelitis that just finished treatment one week prior to admission Based on the left findings and inflammatory markers, consider a bone biopsy and send biopsy for cultures including routine, aerobic, anaerobic, fungal and AFB. If we can do this prior to initiating broad-spectrum antibiotics he might have a better culture results and would be able to tailor antibiotics accordingly. Prognosis guarded (4) Paraplegia Current Visit: Yes Status: Chronic - Subjective Interval history: Patient reports no acute events overnight and is in no distress. He states he is having mild back pain from back surgery that is being controlled on percocet. Denies CP, SOB, abdominal pain, nigtht sweats, chills. Infect Dis PN-Objective Data - Labs CBC & Chem 7: 12/11/18 09:45 12/11/18 05:30 Labs: Laboratory Results - last 24 hr 12/11/18 12/11/18 05:30 05:30 ESR >= 130 H Sodium 140 Potassium 4.0 Chloride 106 Carbon Dioxide 26 BUN 11 Creatinine 0.70 Est GFR ( Amer) > 60 Est GFR (Non-Af Amer) > 60 BUN/Creatinine Ratio 16 Glucose 84 Calculated Osmolality 289 Calcium 9.3 Magnesium 1.2 L Cultures: Cultures 12/10/18 08:34 Blood Culture - Preliminary Peripheral Central Cath, Picc Culture is incubating and being continuously monitored for growth. Final report to follow. 12/09/18 20:27 Blood Culture - Preliminary Peripheral Venipuncture Culture is incubating and being continuously monitored for growth. Final report to follow. 12/09/18 20:27 Blood Culture - Preliminary Peripheral Venipuncture Culture is incubating and being continuously monitored for growth. Final report to follow. Serology 12/09/18 Range/Units 22:01 Ur Specimen Adequacy See below A Urine Color Yellow (Yellow) Urine Clarity Cloudy A (Clear) Urine pH 5.5 (5.0-8.0) pH Units Ur Specific [place] 1.020 (1.010-1.025) Urine Protein 30 H (Neg-Trace) mg/dL Urine Glucose (UA) Normal (Normal) mg/dL Urine Ketones Negative (Negative) mg/dL Urine Blood Large H (Negative) Urine Nitrite Negative (Negative) Urine Bilirubin Negative (Negative) Urine Urobilinogen Normal (Normal) mg/dL Ur Leukocyte Esterase Large H (Negative) Urine Microscopic RBC 0-3 (0-3) per hpf Urine Microscopic WBC 15-30 H (0-3) per hpf Urine Bacteria Few (None-Few) per hpf Urine Mucus Few (Few) Urine Yeast Moderate H (None Seen) per hpf Ur Culture Indicated? YES A (NO) Exam - Constitutional Vitals: Temp Pulse Resp BP Pulse Ox 97.5 F L 97 20 98/59 96 12/11/18 07:21 12/11/18 07:21 12/11/18 07:21 12/11/18 07:21 12/11/18 07:21 - Head Head exam: Present: atraumatic, normal inspection - Eye Eye exam: Present: EOMI, normal appearance - Neck Neck exam: Present: full ROM, normal inspection - Respiratory Respiratory exam: Present: CTAB - Cardiovascular Cardiovascular exam: Present: RRR, +S1, +S2 - Extremities Exam Extremities exam: Present: normal capillary refill, normal inspection - Back Exam Additional comments: Patient has a decubitis ulcer which was not examined today because staff was about to clean patient. - Expanded Neurological Exam Neuro motor strength exam: LUE: 3, RUE: 3, LLE: 0, RLE: 0 - Psychiatric Psychiatric exam: Present: normal mood - Skin Skin exam: Present: dry, intact, warm Consult Discharge Plan - Plan Referrals: NONE,PCP [Primary Care Provider] - - Attending Attestation I examined this patient and my medical decision-making was reviewed with the Resident Physician. I agree with the documented findings, disposition and treatment plan as described except to the extent set forth below. Patient seen and examined. Agree with above findings and assessment and plan next At this point patient is doing clinically better. We will continue broad- spectrum antibiotics until cultures finalize imaging back. Prognosis is guarded at best. Patient continues to smoke and refuses to follow-up with plastic surgery.
--- NOTE | 2018-12-11 09:33 | Internal Med Progress Note ---
<Gladis Franklin - Last Filed: 12/11/18 14:26> Hospitalist Progress Note - Encounter Date of Encounter: 12/11/18 Time of Encounter: 09:33 - Subjective Interval History: Patient seen and examined at bedside this morning. He is lying in bed upon my arrival sleeping but arouses easily to voice. He states that he is currently co mfortable. He denies any pain, chest pain, shortness of breath, nausea, vomiting, abdominal pain. - Exam Vitals: Temp Pulse Resp BP Pulse Ox 97.5 F L 97 20 98/59 96 12/11/18 07:21 12/11/18 07:21 12/11/18 07:21 12/11/18 07:21 12/11/18 07:21 Exam: General: alert and oriented, frail, in NAD HEENT: NC/AT, PERRLA, EOMI, mucous membranes moist Cardio: RRR w/o MRG, pulses 2+ and Respiratory: LCTAB, no cyanosis or clubbing Abd: soft, non-tender, no guarding or rigidity, bs present Extremities: non-tender, no edema, pulses 2+ Skin: warm, dry, multiple wounds that are currently dr on his bilateral legs, right, he will sacrum and. Neuro: alert and oriented, paraplegia Psych: normal mood and affect - Assessment and Plan (1) Sacral decubitus ulcer Current Visit: Yes Status: Chronic Assessment and Plan: Patient has chronic stage 4 sacral decubitus with osteomyelitis, was on IV INVAnz at [facility] from 10/19--- for 6 weeks He presented after 2 days of fever with multiple sources for infection including indwelling mccallum, PICC and numerous pressure ulcers and wounds Decubitus ulcer on sacrum demonstrates purulent drainage--culture obtained, results pending Blood cultures obtained including PICC sample, results pending Nasal MRSA swab negative WBC 6.5, afebrile, VSS ID, general surgery and wound care have been consulted, appreciate their recommendations on wound management. Plan: -Continue wound care per General Surgery -Continue IV Zosyn pending culture results -Continue with pain control as ordered (2) Osteomyelitis of sacrum Current Visit: Yes Status: Chronic Assessment and Plan: Patient has completed 6 week course of abx for treament, CT findings consistent with healing disease ID has been consulted, appreciate their recommendations. Surgery has been consulted for evalution and management of wounds as patient may require debridement, appreciate their recommendations Wound care consulted Plan: -Continue wound care per ID and surgery (3) Pressure ulcer of right heel, unstageable Current Visit: Yes Status: Acute Assessment and Plan: Wound care per surgery and podiatry (4) Pressure ulcer of left ankle, stage 3 Current Visit: Yes Status: Chronic Assessment and Plan: Wound care per surgery and podiatry (5) UTI (urinary tract infection) Current Visit: No Status: Ruled-out Assessment and Plan: Recurrent UTI from chronic dwelling mccallum Previous urine cultures 10/14/2018: Klebsiella pneumoniae S: Carbapnem and zosyn (otherwise fatima resistant) and Proteus mirabilis S: Ertapenem, imipenem and Zosyn (otherwise fatima resistant). Culture pending Plan: -Await culture results, treatment course may change based on results -Continue zosyn, likely for 14 day course -Contact precautions -ID has been consulted, appreciate recommendations -Will need new mccallum placed prior to discharge (6) Paraplegia Current Visit: Yes Status: Chronic Assessment and Plan: Continue with regular turning and wound care to avoid worsening of pressure ulcers and wounds. (7) Hepatitis C Current Visit: Yes Status: Chronic Assessment and Plan: chronic (8) COPD (chronic obstructive pulmonary disease) Current Visit: Yes Status: Chronic Assessment and Plan: Not currently in exacerbation Plan: -Continue home meds. (9) Tobacco use Current Visit: Yes Status: Chronic Assessment and Plan: Encourage Cessation (10) Mood disorder Current Visit: Yes Status: Chronic Assessment and Plan: Chronic, continue home meds - Time Spent with Patient Total time spent is greater than 50% in coordination of care (as documented) at patient's floor/unit and/or counseling patient: Internal Medicine: Result - Labs CBC & Chem 7: 12/11/18 09:45 12/11/18 05:30 Labs: BMP 12/11/18 05:30 Sodium 140 Potassium 4.0 Chloride 106 Carbon Dioxide 26 BUN 11 Creatinine 0.70 Glucose 84 Calcium 9.3 - ABG Interpretation ABG results: PT/INR, D-dimer PT 13.7 Seconds (9.4-12.1) H 12/09/18 20:27 Consult Discharge Plan - Plan Referrals: Brock Lyle MD [Non-Partnered Physician] - 12/29/18 8:00 am (IN [facility]) NONE,PCP [Primary Care Provider] - <Griffin Biswas - Last Filed: 12/11/18 15:40> Hospitalist Progress Note - Encounter Date of Encounter: 12/11/18 Time of Encounter: 15:33 - Exam Vitals: Temp Pulse Resp BP Pulse Ox 97.8 F 94 20 113/75 98 12/11/18 11:21 12/11/18 11:21 12/11/18 11:21 12/11/18 11:21 12/11/18 11:21 - Assessment and Plan (1) Decubitus ulcer of left leg, unstageable Current Visit: Yes Status: Acute (2) Complicated UTI (urinary tract infection) Current Visit: Yes Status: Acute (3) Pressure ulcer of right heel, unstageable Current Visit: Yes Status: Acute (4) COPD (chronic obstructive pulmonary disease) Current Visit: Yes Status: Chronic (5) Hepatitis C Current Visit: Yes Status: Chronic (6) Mood disorder Current Visit: Yes Status: Chronic (7) Osteomyelitis of sacrum Current Visit: Yes Status: Chronic (8) Paraplegia Current Visit: Yes Status: Chronic (9) Sacral decubitus ulcer Current Visit: Yes Status: Chronic - Time Spent with Patient Total time spent is greater than 50% in coordination of care (as documented) at patient's floor/unit and/or counseling patient: Internal Medicine: Result - Labs CBC & Chem 7: 12/11/18 09:45 12/11/18 05:30 Labs: Short CBC 12/11/18 Range/Units 09:45 WBC 6.5 (4.3-11.1) K/mcL Hgb 8.0 L (12.9-16.9) g/dL Hct 26.8 L (37.5-50.1) % Plt Count 203 (140-400) K/mcL Neutrophils # 4.3 (1.6-8.9) K/mcL BMP 12/11/18 05:30 Sodium 140 Potassium 4.0 Chloride 106 Carbon Dioxide 26 BUN 11 Creatinine 0.70 Glucose 84 Calcium 9.3 - ABG Interpretation ABG results: PT/INR, D-dimer PT 13.7 Seconds (9.4-12.1) H 12/09/18 20:27 - Attending Attestation I saw evaluated and examined this patient and my medical decision-making was reviewed with the Resident Physician, Gladis Franklin. I agree with the documented findings, disposition and treatment plan as described except to any changes set forth below. We independently had [id number] contact with the patient. Patient is lying down in bed. Feels tired. Denies any chest pain or palpitations. No new episodes of fever this morning. Complains of worsening ba ck pain in his sacral region. General: Patient is alert, no acute distress, oriented x 3 ENT: Mucous membranes moist Respiratory: Good respiratory effort. Normal breath sounds. No wheezing or crackles. Cardiovascular: Regular rate and rhythm. s1 and s2 normal No clicks, rubs, gallops, or murmurs. No pedal edema Abdomen: Abdomen is soft, nontender. Bowel sounds are present Musculoskeletal: Paraplegia. Skin: Multiple decubitus ulcers involving the sacral region, bilateral heels in various stages. Neuro: Alert oriented x 3 normal cranial nerves, patient has paraplegia. Complicated urinary tract infection: Urine culture growing yeast. Could be colonized. Will follow up with infectious disease to see if this needs treatment. For now continue antibiotics. Chronic osteomyelitis of the sacrum/coccygeal region with stage IV decubitus ulcers: Continue Zosyn and doxycycline per infectious disease recommendations. Overall poor prognosis and healing ability of the ulcers given patient's reluctance to undergo plastic surgery. General surgery consulted for wound care management. We will follow recommendations. Decubitus ulcers on left leg: Continue local wound care. Paraplegia: Fall precautions. Continue supportive care. Percocet and tramadol for pain control. Mood disorder: Continue BuSpar, nortriptyline and Zyprexa DVT prophylaxis with subcutaneous Lovenox. <Gladis Franklin - Last Filed: 12/11/18 14:26> (1) Sacral decubitus ulcer Qualifiers: Pressure injury stage: stage 4 Qualified Code(s): L89.154 - Pressure ulcer of sacral region, stage 4 (5) UTI (urinary tract infection) Qualifiers: Urinary tract infection type: acute cystitis Hematuria presence: with hematuria Qualified Code(s): N30.01 - Acute cystitis with hematuria (7) Hepatitis C Qualifiers: Viral hepatitis chronicity: chronic Hepatic coma status: without hepatic coma Qualified Code(s): B18.2 - Chronic viral hepatitis C (8) COPD (chronic obstructive pulmonary disease) Qualifiers: COPD type: unspecified COPD Qualified Code(s): J44.9 - Chronic obstructive pulmonary disease, unspecified <Griffin Biswas - Last Filed: 12/11/18 15:40> (4) COPD (chronic obstructive pulmonary disease) Qualifiers: COPD type: unspecified COPD Qualified Code(s): J44.9 - Chronic obstructive pulmonary disease, unspecified (5) Hepatitis C Qualifiers: Viral hepatitis chronicity: chronic Hepatic coma status: without hepatic coma Qualified Code(s): B18.2 - Chronic viral hepatitis C (9) Sacral decubitus ulcer Qualifiers: Pressure injury stage: stage 4 Qualified Code(s): L89.154 - Pressure ulcer of sacral region, stage 4
[2018-12-11] MEDS: Iron Polysaccharide Complex 150 MG CAPSULE PO SCH (09:34)
[2018-12-11] MEDS: Valproic Acid 250 MG CAPSULE PO SCH ×3 (09:34→22:43)
[2018-12-11] MEDS: Doxycycline 100 MG CAPSULE PO SCH ×2 (09:34→22:43)
[2018-12-11] MEDS: Gabapentin 300 MG CAPSULE PO SCH ×3 (09:35→22:43)
[2018-12-11] MEDS: Multivit/Ca/Min/Fe/FA 1 TAB TABLET PO SCH (09:35)
[2018-12-11] MEDS: Famotidine 20 MG TABLET PO SCH ×2 (09:35→16:47)
[2018-12-11] MEDS: Baclofen 10 MG TABLET PO SCH ×3 (09:35→22:43)
[2018-12-11] MEDS: *HR* OxyCODONE/APAP 5/325 TABLET PO PRN ×3 (09:35→23:57)
[2018-12-11] MEDS: Zinc Sulfate 220 MG CAPSULE PO SCH ×2 (09:35→22:43)
[2018-12-11] MEDS: Ascorbic Acid 500 MG TABLET PO SCH ×2 (09:35→22:45)
[2018-12-11] MEDS: Lactulose Oral Soln 20 GM/30 ML UDC PO SCH ×3 (09:35→17:10)
[2018-12-11 10:12] LABS: Basophils % 0.3 %; Eosinophils # 0.4 K/mcL (0.0-0.6); Eosinophils % 5.8 %; Hematocrit 26.8 % (37.5-50.1); Immature Granulocytes % 0.3 % (0-4); Lymphocytes # 1.5 K/mcL (0.6-4.6); Lymphocytes % 22.8 %; Mean Corpuscular HGB Conc 29.9 g/dL (31.6-35.5); Mean Corpuscular Hemoglobin 24.1 pg (28.0-33.3); Mean Corpuscular Volume 80.7 fL (83.0-100.0); Mean Platelet Volume 8.7 fL (9.4-12.4); Monocytes # 0.3 K/mcL (0.0-1.3); Monocytes % 4.7 %; Neutrophils # 4.3 K/mcL (1.6-8.9); Platelet Count 203 K/mcL (140-400); Red Blood Count 3.32 M/mcL (4.19-5.50); Red Cell Distribution Width 16.8 % (11.5-14.5); Segmented Neutrophils % 66.1 %
[2018-12-11] MEDS: Budesonide/Formoterol 80/4.5 MDI IH SCH ×2 (10:43→21:50)
--- NOTE | 2018-12-11 13:19 | General Surgery Consult Note ---
<Katrin Lambert - Last Filed: 12/11/18 15:20> Date of Encounter: 12/11/18 Time of Encounter: 12:30 Assessment and Plan (1) Decubitus ulcer, stage 4 with infection Current Visit: No Status: Acute Multiple Stage IV decubitus ulcers involving the bilateral gluteal area, hips, and sacrum (see nursing wound assessment for full measurements). Daily wound care: Remove packing. Wash with antibacterial soap. Pat dry. Pack with 0.25% Dakin's solution. Cover with a dry dressing. Cover with ABD. Tape to secure. Air pressure loss mattress Follow-up with Dr. Lyle 12/29/2018 at 0800 in wound care. Pt is aware this is the last time we will reschedule his wound care appt d/ multiple no-show appointments. No acute surgical intervention. Surgery will follow from a distance (2) Paraplegia Current Visit: Yes Status: Chronic (3) Pressure ulcer Current Visit: Yes Status: Chronic Multiple Stage IV decubitus ulcers involving the bilateral gluteal area, hips, and sacrum (see nursing wound assessment for full measurements). Daily wound care: Remove packing. Wash with antibacterial soap. Pat dry. Pack wi th 0.25% Dakin's solution. Cover with a dry dressing. Cover with ABD. Tape to secure. Air pressure loss mattress Follow-up with Dr. Lyle 12/29/2018 at 0800 in wound care. Pt is aware this is the last time we will reschedule his wound care appt d/ multiple no-show appointments. No acute surgical intervention. Surgery will follow from a distance Qualifiers: Pressure injury location: contiguous region involving back, buttock, and hip Pressure injury stage: stage 4 Laterality: unspecified laterality Qualified Code(s): L89.44 - Pressure ulcer of contiguous site of back, buttock and hip, stage 4 (4) Decubitus ulcer of left leg, unstageable Current Visit: Yes Status: Acute Daily: Apply gentamicin ointment. Apply Santyl nickel thick. Cover with saline moistened gauze. Cover with 4 x 4. Cover with ABD. Wrap with Kerlix History of Present Illness Consult date: 12/10/18 (Dr. Mathieu Malloy) Reason for consult: wound care Requesting physician: Miguel Ángel Tao History of present illness: Surgery has been consulted for recommendations regarding wound care. Patient's past medical, surgical, social, and family history has been reviewed and updated in the electronic medical record where indicated. Fausto is a 53-year-old male who has been evaluated and advised to follow-up in wound care by [facility] in July, twice in September and again on this date. He has not followed up in wound care as directed and per record review, he is refusing treatments and turns. Per record review, he has been seen by us for extensive sacral, gluteal, and hip decubitus ulcers (stage IV and history of osteomyelitis). He is paraplegic secondary to a fall down a flight of stairs leading to a spinal cord injury and residual leg weakness. He had a colostomy placed at [facility] in 2017. He does admit to previous oral and IV drug use but has not been using. He presented again from [facility] with symptoms of a complicated urinary tract infection. His CT in September/2018 noted thickening of the wall bladder, unchanged decubitus ulcers involving the sacrum, both of the ishial tuberosities, left greater trochanter, with adjacent bone changes consistent with osteomyelitis. He was recommended to continue Dakin's solution packing in these areas and follow-up in wound care. He had a CT on his admission 12/10/2018 which noted sacral decubitus ulcer with only then soft tissue overlying the lower sacral/Bragg a genial segments where there is bony sclerosis and erosive changes suggestive of sacraococcygeal chronic osteomyelitis as previously seen. There is no abs cess visualized. He was seen by wound care nurse this visit who recommended a surgical consult to ensure the previously prescribed treatments are still recommended. Presently, he denies headache, dizziness, fever, chest pain, shortness of breath, lower extremity pain, or urinary signs or symptoms. He endorsed a low- grade fever prior to coming to the hospital. Past Med Surg Social Fam HX - Past Medical History Source: patient, old records reviewed Medical history: COPD, dementia, GERD, hepatitis, other Additional medical history: spinal stenosis, anemia, encephalopathy, GI he morrhage,MRSA, osteomyelitis, pressure ulcer Psychiatric history: bipolar, schizophrenia - Past Surgical History Surgical History: non-contributory Additional surgical history: back/spine surgery, evacuation of epidural abscess, I&D, C5-T1 laminectomy December 2017 - Social History Smoking Status: Current every day smoker Smokeless Tobacco Status: No Alcohol use: none Drug use: none - Family History Father Living Status: Hx Family Cardiac Disorders: Yes ([place]) Mother Living Status: Hx Family Cancer: Yes Medications and Allergies RX: Albuterol Neb [Proventil Neb] 2.5 mg IH Q6H PRN 07/01/18 [History] RX: Baclofen [Lioresal] 10 mg PO TID 07/01/18 [History] RX: Famotidine [Heartburn Prevention] 20 mg PO Q12H 07/01/18 [History] RX: Gabapentin [Neurontin] 600 mg PO TID 07/01/18 [History] RX: Heparin 5,000 unit SQ Q8H 07/01/18 [History] RX: Nortriptyline [Pamelor] 25 mg PO HS 07/01/18 [History] RX: Ascorbic Acid [Vitamin C] 500 mg PO BID 07/28/18 [History] RX: Budesonide/Formoterol 80/4.5 [Symbicort 80/4.5] 2 puff IH BID 07/28/18 [History] RX: Lactulose [Enulose] 20 gm PO TIDWM 07/28/18 [History] RX: Lidocaine [Aspercreme] 1 patch TP DAILY 07/28/18 [History] RX: Melatonin [Melatin] 3 mg PO HS 07/28/18 [History] RX: Multivitamin [Multivitamins] 1 tab PO DAILY 07/28/18 [History] RX: OLANZapine [Zyprexa] 10 mg PO QPM 07/28/18 [History] RX: Zinc Sulfate 220 mg PO BID 07/28/18 [History] RX: Acetaminophen [Tylenol] 650 mg PO Q8H PRN 08/04/18 [History] RX: Amino Acids/Protein Hydrolys [Pro-Stat Awc Liquid] 30 ml PO BID 09/09/18 [History] RX: Buspirone HCl [Buspar] 5 mg PO TID 09/09/18 [History] RX: Valproic Acid [Depakene] 500 mg PO Q8H 09/18/18 [History] RX: Doxycycline Hyclate 100 mg PO BID 60 Days #90 capsule 10/19/18 [Rx] RX: Tramadol HCl [Ultram] 50 mg PO Q8H PRN 10 Days #30 tablet 10/19/18 [Rx] Magnesium Oxide [Magnesium] 400 mg PO DAILY 12/11/18 [History] RX: Ferrous Sulfate 325 mg PO BID 12/11/18 [History] Allergy/AdvReac Type Severity Reaction Status Date / Time No Known Allergies Allergy Verified 08/02/18 22:22 Review of Systems All systems PM: reviewed and no additional remarkable complaints except as stated All systems PM: The remainder of the systems were reviewed and are negative General Surgery Exam Initial Vital Signs Temp Pulse Resp BP Pulse Ox 99.5 F 120 18 122/77 98 12/09/18 19:33 12/09/18 19:33 12/09/18 19:33 12/09/18 19:33 12/09/18 19:33 - General physical appearance chronically ill - Respiratory normal expansion, normal respiratory effort - Cardiovascular Cardiovascular exam: Present: RRR - Abdomen Abdomen general surgery: Present: bowel sounds present, soft, non tender, wound (Colostomy in place. Stoma is pink and moist) - Genitourinary Present: other (Scrotum is with stage I decubitus ulcers as well as yeast malodorous) - Integumentary Integumentary general surgery: Present: other (See assessment and plan) - Neurologic Present: other (Calm and cooperative) - Musculoskeletal Present: other (Paraplegia) - Psychiatric Psychiatric general surgery: Present: A&Ox3 Exam Initial Vital Signs Temp Pulse Resp BP Pulse Ox 99.5 F 120 18 122/77 98 12/09/18 19:33 12/09/18 19:33 12/09/18 19:33 12/09/18 19:33 12/09/18 19:33 Results - Labs 12/11/18 09:45 12/11/18 05:30 Abnormal lab results RBC 3.32 M/mcL (4.19-5.50) L 12/11/18 09:45 Hgb 8.0 g/dL (12.9-16.9) L 12/11/18 09:45 Hct 26.8 % (37.5-50.1) L 12/11/18 09:45 MCV 80.7 fL (83.0-100.0) L 12/11/18 09:45 MCH 24.1 pg (28.0-33.3) L 12/11/18 09:45 MCHC 29.9 g/dL (31.6-35.5) L 12/11/18 09:45 RDW 16.8 % (11.5-14.5) H 12/11/18 09:45 MPV 8.7 fL (9.4-12.4) L 12/11/18 09:45 ESR >= 130 mm/hr (0-10) H 12/11/18 05:30 PT 13.7 Seconds (9.4-12.1) H 12/09/18 20:27 Magnesium 1.2 mg/dL (1.6-2.6) L 12/11/18 05:30 AST 9 Units/L (13-39) L 12/09/18 20:27 C-Reactive Protein 96 mg/L (Less than 10) H 12/11/18 05:30 Albumin 2.9 g/dL (3.5-5.7) L 12/09/18 20:27 Globulin 3.8 g/dL (2.4-3.5) H 12/09/18 20:27 Albumin/Globulin Ratio 0.8 (1.1-2.2) L 12/09/18 20:27 Ur Specimen Adequacy See below A 12/09/18 22:01 Urine Clarity Cloudy (Clear) A 12/09/18 22:01 Urine Protein 30 mg/dL (Neg-Trace) H 12/09/18 22:01 Urine Blood Large (Negative) H 12/09/18 22:01 Ur Leukocyte Esterase Large (Negative) H 12/09/18 22:01 Urine Microscopic WBC 15-30 per hpf (0-3) H 12/09/18 22:01 Urine Yeast Moderate per hpf (None Seen) H 12/09/18 22:01 Ur Culture Indicated? YES (NO) A 12/09/18 22:01 Diabetes panel 12/11/18 Range/Units 05:30 Sodium 140 (136-145) mEq/L Potassium 4.0 (3.5-5.1) mEq/L Chloride 106 (98-107) mEq/L Carbon Dioxide 26 (23-29) mEq/L BUN 11 (6-20) mg/dL Creatinine 0.70 (0.70-1.30) mg/dL Glucose 84 (70-105) mg/dL Calcium 9.3 (8.6-10.3) mg/dL Calcium panel 12/11/18 Range/Units 05:30 Calcium 9.3 (8.6-10.3) mg/dL Pituitary panel 12/11/18 Range/Units 05:30 Sodium 140 (136-145) mEq/L Potassium 4.0 (3.5-5.1) mEq/L Chloride 106 (98-107) mEq/L Carbon Dioxide 26 (23-29) mEq/L BUN 11 (6-20) mg/dL Creatinine 0.70 (0.70-1.30) mg/dL Glucose 84 (70-105) mg/dL Calcium 9.3 (8.6-10.3) mg/dL Adrenal panel 12/11/18 Range/Units 05:30 Sodium 140 (136-145) mEq/L Potassium 4.0 (3.5-5.1) mEq/L Chloride 106 (98-107) mEq/L Carbon Dioxide 26 (23-29) mEq/L BUN 11 (6-20) mg/dL Creatinine 0.70 (0.70-1.30) mg/dL Glucose 84 (70-105) mg/dL Calcium 9.3 (8.6-10.3) mg/dL All other labs normal. - Imaging CT scan - abdomen: report reviewed CT scan - pelvis: report reviewed Consult Discharge Plan - Plan Referrals: Brock Lyle MD [Non-Partnered Physician] - 12/29/18 8:00 am (IN [facility]) NONE,PCP [Primary Care Provider] - (Patient is from [facility]) <Mathieu Malloy E - Last Filed: 12/15/18 08:05> Date of Encounter: 12/15/18 Assessment and Plan (1) Paraplegia Current Visit: Yes Status: Chronic (2) Decubitus ulcer, stage 4 with infection Current Visit: No Status: Acute (3) Pressure ulcer Current Visit: Yes Status: Chronic Qualifiers: Pressure injury location: contiguous region involving back, buttock, and hip Pressure injury stage: stage 4 Laterality: unspecified laterality Qualified Code(s): L89.44 - Pressure ulcer of contiguous site of back, buttock and hip, stage 4 (4) Decubitus ulcer of left leg, unstageable Current Visit: Yes Status: Acute The case was reviewed with our RESERVOIR CARETAKER. Agree with her assessment. Pt has been refractory to recommendations for care. Will lay out a plan for wound care. No surgical debridement necessary. Review of Systems All systems PM: The remainder of the systems were reviewed and are negative General Surgery Exam Initial Vital Signs Temp Pulse Resp BP Pulse Ox 99.5 F 120 18 122/77 98 12/09/18 19:33 12/09/18 19:33 12/09/18 19:33 12/09/18 19:33 12/09/18 19:33 Exam Initial Vital Signs Temp Pulse Resp BP Pulse Ox 99.5 F 120 18 122/77 98 12/09/18 19:33 12/09/18 19:33 12/09/18 19:33 12/09/18 19:33 12/09/18 19:33 Results - Labs 12/15/18 05:51 12/15/18 05:51 Abnormal lab results RBC 3.01 M/mcL (4.19-5.50) L 12/15/18 05:51 Hgb 7.1 g/dL (12.9-16.9) L 12/15/18 05:51 Hct 24.9 % (37.5-50.1) L 12/15/18 05:51 MCV 82.7 fL (83.0-100.0) L 12/15/18 05:51 MCH 23.6 pg (28.0-33.3) L 12/15/18 05:51 MCHC 28.5 g/dL (31.6-35.5) L 12/15/18 05:51 RDW 17.7 % (11.5-14.5) H 12/15/18 05:51 Plt Count 107 K/mcL (140-400) L 12/15/18 05:51 MPV 9.3 fL (9.4-12.4) L 12/15/18 05:51 Platelet Estimate Slight Decrease (Normal) L 12/15/18 05:51 Hypochromasia Present (Not Present) A 12/15/18 05:51 Anisocytosis 1+ (Not Present) A 12/15/18 05:51 ESR >= 130 mm/hr (0-10) H 12/11/18 05:30 PT 14.0 Seconds (9.4-12.1) H 12/14/18 07:16 Chloride 108 mEq/L (98-107) H 12/15/18 05:51 Magnesium 1.5 mg/dL (1.6-2.6) L 12/15/18 05:51 AST 9 Units/L (13-39) L 12/09/18 20:27 C-Reactive Protein 96 mg/L (Less than 10) H 12/11/18 05:30 Albumin 2.9 g/dL (3.5-5.7) L 12/09/18 20:27 Globulin 3.8 g/dL (2.4-3.5) H 12/09/18 20:27 Albumin/Globulin Ratio 0.8 (1.1-2.2) L 12/09/18 20:27 Ur Specimen Adequacy See below A 12/09/18 22:01 Urine Clarity Cloudy (Clear) A 12/09/18 22:01 Urine Protein 30 mg/dL (Neg-Trace) H 12/09/18 22:01 Urine Blood Large (Negative) H 12/09/18 22:01 Ur Leukocyte Esterase Large (Negative) H 12/09/18 22:01 Urine Microscopic WBC 15-30 per hpf (0-3) H 12/09/18 22:01 Urine Yeast Moderate per hpf (None Seen) H 12/09/18 22:01 Ur Culture Indicated? YES (NO) A 12/09/18 22:01 Diabetes panel 12/15/18 Range/Units 05:51 Sodium 142 (136-145) mEq/L Potassium 4.1 (3.5-5.1) mEq/L Chloride 108 H (98-107) mEq/L Carbon Dioxide 27 (23-29) mEq/L BUN 13 (6-20) mg/dL Creatinine 0.74 (0.70-1.30) mg/dL Glucose 78 (70-105) mg/dL Calcium 9.5 (8.6-10.3) mg/dL Calcium panel 12/15/18 Range/Units 05:51 Calcium 9.5 (8.6-10.3) mg/dL Pituitary panel 12/15/18 Range/Units 05:51 Sodium 142 (136-145) mEq/L Potassium 4.1 (3.5-5.1) mEq/L Chloride 108 H (98-107) mEq/L Carbon Dioxide 27 (23-29) mEq/L BUN 13 (6-20) mg/dL Creatinine 0.74 (0.70-1.30) mg/dL Glucose 78 (70-105) mg/dL Calcium 9.5 (8.6-10.3) mg/dL Adrenal panel 12/15/18 Range/Units 05:51 Sodium 142 (136-145) mEq/L Potassium 4.1 (3.5-5.1) mEq/L Chloride 108 H (98-107) mEq/L Carbon Dioxide 27 (23-29) mEq/L BUN 13 (6-20) mg/dL Creatinine 0.74 (0.70-1.30) mg/dL Glucose 78 (70-105) mg/dL Calcium 9.5 (8.6-10.3) mg/dL All other labs normal.
[2018-12-11] MEDS: Gentamicin Oint 15 GM TUBE TP SCH (14:59)
[2018-12-11] MEDS: OLANZapine 10 MG TAB.RAPDIS PO SCH (16:47)
--- NOTE | 2018-12-11 17:03 | Podiatry Consult Note ---
Date of Encounter: 12/11/18 Time of Encounter: 16:00 Assessment and Plan (1) Decubitus ulcer of left leg, unstageable Current visit: Yes Status: Acute Assessment: Pressure ulcer of left tibia measuring 9 x 3 cm. Eschar noted to wound bed, no fluctuance noted. Foul odor noted. Surrounding tissue erythematous, no streaking noted. Wound culture buttock returned gram negative rods Blood culture pending ESR >130 CRP 105 Blood glucose 110s today WBC 10.9 Plan: Xray of left tib/fib ordered to r/o OM, gas, abscess Cleansed with chlorhexidine soap. Covered with Santyl, 4x4 moist gauze, 4x4 dry gauze, and medipore. Nursing to change twice daily. Wound care orders placed. Recommend tight glycemic control to promote wound healing. (2) Pressure ulcer of right heel, stage 3 Current visit: Yes Status: Chronic Assessment: Stage 3 pressure ulcer of right calcaneous Wound bed pink in color with slough noted. Edges rolled. Surrounding tissue pink in color. Warm to touch. No edema, no erythema, no streaking, no foul odor. Does not probe to bone, no tunneling, no undermining noted. CFT <3 seconds No active drainage noted Plan: Xray ordered to r/o OM, gas, or abscess Nursing to change dressing BID. Place santyl to wound bed, cover with 4x4 dry gauze, and kerlex Heel medix boots ordered. Please keep feet elevated while in bed at all times. (3) Pressure ulcer of left ankle, stage 3 Current visit: Yes Status: Chronic Assessment: Stage 3 pressure ulcer to left lateral malleolus Yellow/brown drainage noted Wound bed pink in color, no undermining noted, no tunneling noted Surrounding tissue erythematous, no streaking noted, no foul odor noted Plan: Wound culture ordered. Nursing to collect Xray ordered of left lateral malleolus to r/o OM, abscess, or gas Cleanse wounds with 0.9 NS, cover with santyl, 4x4 dry gauze, and kerlex Local wound care BID. Nursing to change. Orders placed. Heel medix boots ordered to offload pressure. History of Present Illness HPI: Mr. Carrasco is a 53 year old male who presented 12/09/18 from [facility] for fever x 2 days. Patient has PMH of COPD, dementia, GERD, hepatitis, spinal stenosis, anemia, encephalopathy, GI hemorrhage, MRSA, osteomyelitis, pressure ulcer of coccyx and bilateral lower extremities, bipolar, schizophrenia, and weakness to BLE. Patient has previously been seen by podiatry inpatient, but has not followed outpatient. Patient is a poor historian and most information was obtained through charts. Previous ABIs on 08/05/18 returned normal hemodynamics of Right DP 0.89, Left DP 0.99, Left PT 0.98. It appears that patient has had both left lateral malleolus wound and right calcaneous wound since July of 2018. Left tibial wound appears to be a new wound. Patient denies any recent fevers, chills, nausea, vomiting, or diarrhea. Denies any chest pain, calf pain, or shortness of breath. , Past Med Surg Social Fam HX - Past Medical History Medical history: COPD, dementia, GERD, hepatitis, other Additional medical history: spinal stenosis, anemia, encephalopathy, GI hemorrhage,MRSA, osteomyelitis, pressure ulcer Psychiatric history: bipolar, schizophrenia - Past Surgical History Surgical History: non-contributory Additional surgical history: back/spine surgery, evacuation of epidural abscess, I&D, C5-T1 laminectomy December 2017 - Social History Smoking Status: Current every day smoker Smokeless Tobacco Status: No Alcohol use: none Drug use: none - Family History Father Living Status: Hx Family Cardiac Disorders: Yes ([place]) Mother Living Status: Hx Family Cancer: Yes Medications and Allergies Albuterol Neb [Proventil Neb] 2.5 mg IH Q6H PRN 07/01/18 [History] Baclofen [Lioresal] 10 mg PO TID 07/01/18 [History] Famotidine [Heartburn Prevention] 20 mg PO Q12H 07/01/18 [History] Gabapentin [Neurontin] 600 mg PO TID 07/01/18 [History] Heparin 5,000 unit SQ Q8H 07/01/18 [History] Nortriptyline [Pamelor] 25 mg PO HS 07/01/18 [History] Ascorbic Acid [Vitamin C] 500 mg PO BID 07/28/18 [History] Budesonide/Formoterol 80/4.5 [Symbicort 80/4.5] 2 puff IH BID 07/28/18 [History] Lactulose [Enulose] 20 gm PO TIDWM 07/28/18 [History] Lidocaine [Aspercreme] 1 patch TP DAILY 07/28/18 [History] Melatonin [Melatin] 3 mg PO HS 07/28/18 [History] Multivitamin [Multivitamins] 1 tab PO DAILY 07/28/18 [History] OLANZapine [Zyprexa] 10 mg PO QPM 07/28/18 [History] Zinc Sulfate 220 mg PO BID 07/28/18 [History] Acetaminophen [Tylenol] 650 mg PO Q8H PRN 08/04/18 [History] Amino Acids/Protein Hydrolys [Pro-Stat Awc Liquid] 30 ml PO BID 09/09/18 [History] Buspirone HCl [Buspar] 5 mg PO TID 09/09/18 [History] Valproic Acid [Depakene] 500 mg PO Q8H 09/18/18 [History] Doxycycline Hyclate 100 mg PO BID 60 Days #90 capsule 10/19/18 [Rx] Tramadol HCl [Ultram] 50 mg PO Q8H PRN 10 Days #30 tablet 10/19/18 [Rx] Ferrous Sulfate 325 mg PO BID 12/11/18 [History] Magnesium Oxide [Magnesium] 400 mg PO DAILY 12/11/18 [History] Allergy/AdvReac Type Severity Reaction Status Date / Time No Known Allergies Allergy Verified 08/02/18 22:22 All Systems Reviewed: The remainder of the systems were reviewed and are negative - Constitutional Constitutional: weakness, no fever(s) - Cardiovascular Cardiovascular: leg ulcers, other (bilateral foot ulcers), no chest pain, no dyspnea, no leg edema - Respiratory Respiratory: no cough, no dyspnea - Musculoskeletal Musculoskeletal: limited range of motion, muscle weakness, numbness, tingling Physical Exam - Constitutional Vitals: Temp Pulse Resp BP Pulse Ox 97.8 F 94 20 113/75 98 12/11/18 11:21 12/11/18 11:21 12/11/18 11:21 12/11/18 11:21 12/11/18 11:21 Exam: Constitiutional: Alert and oriented x 3. Poor historian. Cachectic Vascular: 1/4 DP/PT bilaterally, CFT <3 sec to all digits, warm to warm from tibia to toes bilaterally, no calf pain with squeeze bilaterally Neurologic: Absent sensation to touch, normal plantar response, abnormal position sense dorsiflexion/plantar flexion Dermatologic: Pressure ulcer stage 3 noted to right calcaneous wound bed pink with rolled edges, slough noted to edge of wound, pressure ulcer stage 3 noted to left lateral malleolus with yellow/brown drainage, does not probe to bone, no undermining or tunneling noted, pressure ulcer unstageable with eschar noted to left tibia measuring 9 x 3. Musculoskeletal: 2/5 muscle strength. Muscle atrophy noted to bilateral lower extremities Results - Labs Result Diagrams: 12/11/18 09:45 12/11/18 05:30 Labs: Abnormal lab results RBC 3.32 M/mcL (4.19-5.50) L 12/11/18 09:45 Hgb 8.0 g/dL (12.9-16.9) L 12/11/18 09:45 Hct 26.8 % (37.5-50.1) L 12/11/18 09:45 MCV 80.7 fL (83.0-100.0) L 12/11/18 09:45 MCH 24.1 pg (28.0-33.3) L 12/11/18 09:45 MCHC 29.9 g/dL (31.6-35.5) L 12/11/18 09:45 RDW 16.8 % (11.5-14.5) H 12/11/18 09:45 MPV 8.7 fL (9.4-12.4) L 12/11/18 09:45 ESR >= 130 mm/hr (0-10) H 12/11/18 05:30 PT 13.7 Seconds (9.4-12.1) H 12/09/18 20:27 Magnesium 1.2 mg/dL (1.6-2.6) L 12/11/18 05:30 AST 9 Units/L (13-39) L 12/09/18 20:27 C-Reactive Protein 96 mg/L (Less than 10) H 12/11/18 05:30 Albumin 2.9 g/dL (3.5-5.7) L 12/09/18 20:27 Globulin 3.8 g/dL (2.4-3.5) H 12/09/18 20:27 Albumin/Globulin Ratio 0.8 (1.1-2.2) L 12/09/18 20:27 Ur Specimen Adequacy See below A 12/09/18 22:01 Urine Clarity Cloudy (Clear) A 12/09/18 22:01 Urine Protein 30 mg/dL (Neg-Trace) H 12/09/18 22:01 Urine Blood Large (Negative) H 12/09/18 22:01 Ur Leukocyte Esterase Large (Negative) H 12/09/18 22:01 Urine Microscopic WBC 15-30 per hpf (0-3) H 12/09/18 22:01 Urine Yeast Moderate per hpf (None Seen) H 12/09/18 22:01 Ur Culture Indicated? YES (NO) A 12/09/18 22:01 H & H 12/11/18 Range/Units 09:45 Hgb 8.0 L (12.9-16.9) g/dL Hct 26.8 L (37.5-50.1) % All other labs normal. - Diagnostic results Ankle/Foot x-ray: pending Consult Discharge Plan - Plan Referrals: Brock Lyle MD [Non-Partnered Physician] - 12/29/18 8:00 am (IN [facility]) NONE,PCP [Primary Care Provider] -
[2018-12-11] MEDS: Melatonin 3 MG TABLET PO SCH (22:43)
[2018-12-12] MEDS: *HR* Enoxaparin 40 MG/0.4 ML SYRINGE SQ SCH (04:56)
[2018-12-12] MEDS: Gentamicin Oint 15 GM TUBE TP SCH (05:41)
[2018-12-12 06:50] LABS: Basophils % 0.2 %; Eosinophils # 0.5 K/mcL (0.0-0.6); Eosinophils % 6.7 %; Hematocrit 27.7 % (37.5-50.1); Hemoglobin 8.3 g/dL (12.9-16.9); Immature Granulocytes % 0.4 % (0-4); Lymphocytes % 24.6 %; Mean Corpuscular Hemoglobin 24.1 pg (28.0-33.3); Mean Corpuscular Volume 80.5 fL (83.0-100.0); Mean Platelet Volume 8.7 fL (9.4-12.4); Monocytes # 0.6 K/mcL (0.0-1.3); Monocytes % 6.9 %; Neutrophils # 4.9 K/mcL (1.6-8.9); Platelet Count 230 K/mcL (140-400); Red Blood Count 3.44 M/mcL (4.19-5.50); Red Cell Distribution Width 16.8 % (11.5-14.5); Segmented Neutrophils % 61.2 %
[2018-12-12] MEDS: *HR* OxyCODONE/APAP 5/325 TABLET PO PRN ×3 (07:13→21:30)
[2018-12-12 07:17] LABS: BUN/Creatinine Ratio 17 (6-26); Blood Urea Nitrogen 11 mg/dL (6-20); Calcium 9.4 mg/dL (8.6-10.3); Carbon Dioxide 26 mEq/L (23-29); Chloride 104 mEq/L (98-107); Glucose 98 mg/dL (70-105); Osmolality,Calculated 285 (280-300); Potassium 4.1 mEq/L (3.5-5.1); Sodium 138 mEq/L (136-145); eGFR For Non-African Americans > 60 (> 60)
[2018-12-12] MEDS: Baclofen 10 MG TABLET PO SCH ×3 (08:12→21:05)
[2018-12-12] MEDS: Multivit/Ca/Min/Fe/FA 1 TAB TABLET PO SCH (08:12)
[2018-12-12] MEDS: Doxycycline 100 MG CAPSULE PO SCH ×2 (08:12→21:02)
[2018-12-12] MEDS: Ascorbic Acid 500 MG TABLET PO SCH ×2 (08:12→21:05)
[2018-12-12] MEDS: Valproic Acid 250 MG CAPSULE PO SCH ×3 (08:12→21:04)
[2018-12-12] MEDS: Iron Polysaccharide Complex 150 MG CAPSULE PO SCH (08:12)
[2018-12-12] MEDS: Gabapentin 300 MG CAPSULE PO SCH ×3 (08:12→21:03)
[2018-12-12] MEDS: Famotidine 20 MG TABLET PO SCH ×2 (08:12→16:57)
[2018-12-12] MEDS: Lactulose Oral Soln 20 GM/30 ML UDC PO SCH ×3 (08:12→16:57)
[2018-12-12] MEDS: Zinc Sulfate 220 MG CAPSULE PO SCH ×2 (08:12→21:03)
[2018-12-12] MEDS: Piperacillin/Tazobactam 3.375 GM in 0.9 % Sodium Chloride Mini Bag 100 ML IVPB SCH ×2 (08:13→15:13)
--- NOTE | 2018-12-12 09:16 | Internal Med Progress Note ---
<Gladis Franklin - Last Filed: 12/12/18 10:05> Hospitalist Progress Note - Encounter Date of Encounter: 12/12/18 Time of Encounter: 09:32 - Subjective Interval History: Patient seen and examined at bedside this morning. He is lying in bed upon my arrival. He states that he is currently comfortable. He did have some nausea a nd abdominal pain yesterday when he had his pills on an empty stomach. He has not had any today. He denies any pain, chest pain, shortness of breath, nausea, vomiting, abdominal pain. - Exam Vitals: Temp Pulse Resp BP Pulse Ox 97.5 F L 90 16 103/68 99 12/12/18 07:39 12/12/18 07:39 12/12/18 07:39 12/12/18 07:39 12/12/18 08:23 Exam: General: alert and oriented, frail, in NAD HEENT: NC/AT, PERRLA, EOMI, mucous membranes moist Cardio: RRR w/o MRG, pulses 2+ and Respiratory: LCTAB, no cyanosis or clubbing Abd: soft, non-tender, no guarding or rigidity, bs present. Stoma left lower abdomen Extremities: non-tender, no edema, pulses 2+ Skin: warm, dry, multiple wounds that are currently dressed on his bilateral legs, and sacrum. He has heelmedix boots on b/l. 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 Klebsiella sensitive to ertapenem, imipenem and zosyn Blood cultures obtained including PICC sample, results pending Nasal MRSA swab negative WBC 6.5, afebrile, VSS ID, general surgery and wound care have been consulted, appreciate their recommendations on wound management. Overall poor prognosis and healing ability of the ulcers given patient's reluctance to undergo plastic surgery. BS have been well controlled. Plan: -Continue wound care per General Surgery -Continue IV Zosyn and doxycycline pending culture results -Continue with pain control as ordered -Tight glycemic control to promote wound healing. (2) Decubitus ulcer of left leg, unstageable Current Visit: Yes Status: Acute Assessment and Plan: Pressure ulcer of left tibia measuring 9 x 3 cm. Podiatry noted eschar to wound bed, no fluctuance noted. Foul odor noted. Surrounding tissue erythematous, no streaking noted. XR demonstrated findings concerning for possible osteomyelitis along the mid left tibia medial diaphysis. Plan: -Will get MRI of left LE to evaluate for osteomyelitis -Wound management per podiatry (3) Osteomyelitis of sacrum Current Visit: Yes Status: Chronic Assessment and Plan: Patient has completed 6 week course of abx for treament, CT findings consistent with healing disease ID has been consulted, appreciate their recommendations. Surgery has been consulted for evalution and management of wounds, will follow their recommendations Wound care consulted Plan: -Continue wound care per ID and surgery (4) Pressure ulcer of right heel, unstageable Current Visit: Yes Status: Acute Assessment and Plan: Wound care per surgery and podiatry (5) Pressure ulcer of left ankle, stage 3 Current Visit: Yes Status: Chronic Assessment and Plan: Wound care per surgery and podiatry (6) UTI (urinary tract infection) Current Visit: Yes Status: Acute Assessment and Plan: Recurrent UTI from chronic dwelling mccallum Previous urine cultures 10/14/2018: Klebsiella pneumoniae S: Carbapnem and zosyn (otherwise fatima resistant) and Proteus mirabilis S: Ertapenem, imipenem and Zosyn (otherwise fatima resistant). Culture growing gram negative rods and yeast. Yeast may be colonized, will consult with ID for treatment. Plan: -Await culture results, treatment course may change based on results -Continue zosyn and doxycycline, likely for 14 day course -Diflucan daily -Contact precautions -ID has been consulted, appreciate recommendations -Will need new mccallum placed prior to discharge (7) Paraplegia Current Visit: Yes Status: Chronic Assessment and Plan: Continue with regular turning and wound care to avoid worsening of pressure ulcers and wounds. Fall precautions. (8) COPD (chronic obstructive pulmonary disease) Current Visit: Yes Status: Chronic Assessment and Plan: Not currently in exacerbation Plan: -Continue home meds. (9) Mood disorder Current Visit: Yes Status: Chronic Assessment and Plan: Continue BuSpar, nortriptyline and Zyprexa (10) Hepatitis C Current Visit: Yes Status: Chronic Assessment and Plan: chronic (11) Tobacco use Current Visit: Yes Status: Chronic Assessment and Plan: Encourage cessation DVT Prophylaxis: lovenox SQ - Time Spent with Patient Total time spent is greater than 50% in coordination of care (as documented) at patient's floor/unit and/or counseling patient: Internal Medicine: Result - Labs CBC & Chem 7: 12/12/18 06:16 12/12/18 06:16 Labs: Short CBC 12/11/18 12/12/18 Range/Units 09:45 06:16 WBC 6.5 8.0 (4.3-11.1) K/mcL Hgb 8.0 L 8.3 L (12.9-16.9) g/dL Hct 26.8 L 27.7 L (37.5-50.1) % Plt Count 203 230 (140-400) K/mcL Neutrophils # 4.3 4.9 (1.6-8.9) K/mcL BMP 12/12/18 06:16 Sodium 138 Potassium 4.1 Chloride 104 Carbon Dioxide 26 BUN 11 Creatinine 0.63 L Glucose 98 Calcium 9.4 - ABG Interpretation ABG results: PT/INR, D-dimer PT 13.7 Seconds (9.4-12.1) H 12/09/18 20:27 - Impressions Impressions Foot X-Ray 12/11/18 16:26 IMPRESSION: No acute abnormality identified of the left foot. D/ / Inocencio Hampton MD / Inocencio Hampton MD Interpreting Provider: Inocencio Hampton MD Foot X-Ray 12/11/18 16:26 IMPRESSION: Large ulceration overlying the calcaneus without radiographic findings to suggest acute osteomyelitis. MRI could be performed for further evaluation, if clinically warranted. D/ / Wilder Hickman MD / Wilder Hickman MD Interpreting Provider: Wilder Hickman MD Tibia/Fibula X-Ray 12/11/18 16:26 IMPRESSION: Findings concerning for possible osteomyelitis along the mid left tibia medial diaphysis. Correlate with the area of interest. Additional evaluation with MRI should considered. Chronic versus subacute fracture is nondisplaced lateral fibular malleolus. Apparent ulceration soft tissues lateral lower left extremity. Correlate with physical findings. There appears to be medial collapse of the subchondral bone under the dome of the talus. Radiographs of the left ankle may be useful for additional characterization. D/ / Pavel Lira / Pavel Lira Interpreting Provider: Pavel Lira Consult Discharge Plan - Plan Referrals: Brock Lyle MD [Non-Partnered Physician] - 12/29/18 8:00 am (IN [facility]) NONE,PCP [Primary Care Provider] - <Griffin Biswas - Last Filed: 12/12/18 12:56> Hospitalist Progress Note - Encounter Date of Encounter: 12/12/18 Time of Encounter: 10:15 - Exam Vitals: Temp Pulse Resp BP Pulse Ox 97.6 F 90 17 98/61 97 12/12/18 11:19 12/12/18 11:19 12/12/18 11:19 12/12/18 11:19 12/12/18 11:19 - Assessment and Plan (1) Decubitus ulcer of left leg, unstageable Current Visit: Yes Status: Acute (2) Complicated UTI (urinary tract infection) Current Visit: Yes Status: Acute (3) Pressure ulcer of right heel, unstageable Current Visit: Yes Status: Acute (4) COPD (chronic obstructive pulmonary disease) Current Visit: Yes Status: Chronic (5) Hepatitis C Current Visit: Yes Status: Chronic (6) Mood disorder Current Visit: Yes Status: Chronic (7) Osteomyelitis of sacrum Current Visit: Yes Status: Chronic (8) Paraplegia Current Visit: Yes Status: Chronic (9) Sacral decubitus ulcer Current Visit: Yes Status: Chronic - Time Spent with Patient Total time spent is greater than 50% in coordination of care (as documented) at patient's floor/unit and/or counseling patient: Internal Medicine: Result - Labs CBC & Chem 7: 12/12/18 06:16 12/12/18 06:16 Labs: Short CBC 12/12/18 Range/Units 06:16 WBC 8.0 (4.3-11.1) K/mcL Hgb 8.3 L (12.9-16.9) g/dL Hct 27.7 L (37.5-50.1) % Plt Count 230 (140-400) K/mcL Neutrophils # 4.9 (1.6-8.9) K/mcL BMP 12/12/18 06:16 Sodium 138 Potassium 4.1 Chloride 104 Carbon Dioxide 26 BUN 11 Creatinine 0.63 L Glucose 98 Calcium 9.4 - ABG Interpretation ABG results: PT/INR, D-dimer PT 13.7 Seconds (9.4-12.1) H 12/09/18 20:27 - Impressions Impressions Foot X-Ray 12/11/18 16:26 IMPRESSION: No acute abnormality identified of the left foot. D/ / Inocencio Hampton MD / Inocencio Hampton MD Interpreting Provider: Inocencio Hampotn MD Foot X-Ray 12/11/18 16:26 IMPRESSION: Large ulceration overlying the calcaneus without radiographic findings to suggest acute osteomyelitis. MRI could be performed for further evaluation, if clinically warranted. D/ / Wilder Hickman MD / Wilder Hickman MD Interpreting Provider: Wilder Hickman MD Tibia/Fibula X-Ray 12/11/18 16:26 IMPRESSION: Findings concerning for possible osteomyelitis along the mid left tibia medial diaphysis. Correlate with the area of interest. Additional evaluation with MRI should considered. Chronic versus subacute fracture is nondisplaced lateral fibular malleolus. Apparent ulceration soft tissues lateral lower left extremity. Correlate with physical findings. There appears to be medial collapse of the subchondral bone under the dome of the talus. Radiographs of the left ankle may be useful for additional characterization. D/ / Pavel Lira / Pavel Lira Interpreting Provider: Pavel Lira - Attending Attestation I saw evaluated and examined this patient and my medical decision-making was reviewed with the Resident Physician, Gladis Franklin. I agree with the documented findings, disposition and treatment plan as described except to any changes set forth below. We independently had [id number] contact with the patient. Patient is doing better today. Denies any fevers or chills. Lying down in bed. Pain in his lower back is better controlled. No shortness of breath. No chest pain. General: Patient is alert, no acute distress, oriented x 3 ENT: Mucous membranes moist Respiratory: Good respiratory effort. Normal breath sounds. No wheezing or crackles. Cardiovascular: Regular rate and rhythm. s1 and s2 normal No clicks, rubs, gallops, or murmurs. No pedal edema Abdomen: Abdomen is soft, nontender. Bowel sounds are present Musculoskeletal: Paraplegia. Skin: Multiple decubitus ulcers involving the sacral region, bilateral heels in various stages. Neuro: Alert oriented x 3 normal cranial nerves, patient has paraplegia. Complicated urinary tract infection: Urine culture growing yeast and gram- negative rods. Continue Zosyn and fluconazole. Chronic osteomyelitis of the sacrum/coccygeal region with stage IV decubitus ulcers: Wound culture growing Klebsiella and another gram-negative rianna. Klebsiella is ESBL but sensitive to Zosyn. We will continue Zosyn. Decubitus ulcers on left leg: Continue local wound care. Podiatry consult appreciated. MRI of the foot ordered to look for underlying osteomyelitis. Paraplegia: Fall precautions. Continue supportive care. Percocet and tramadol for pain control. Mood disorder: Continue BuSpar, nortriptyline and Zyprexa DVT prophylaxis with subcutaneous Lovenox. <Gladis Franklin - Last Filed: 12/12/18 10:05> (1) Sacral decubitus ulcer Qualifiers: Pressure injury stage: stage 4 Qualified Code(s): L89.154 - Pressure ulcer of sacral region, stage 4 (6) UTI (urinary tract infection) Qualifiers: Urinary tract infection type: acute cystitis Hematuria presence: with hematuria Qualified Code(s): N30.01 - Acute cystitis with hematuria (8) COPD (chronic obstructive pulmonary disease) Qualifiers: COPD type: unspecified COPD Qualified Code(s): J44.9 - Chronic obstructive pulmonary disease, unspecified (10) Hepatitis C Qualifiers: Viral hepatitis chronicity: chronic Hepatic coma status: without hepatic coma Qualified Code(s): B18.2 - Chronic viral hepatitis C <Griffin Biswas - Last Filed: 12/12/18 12:56> (4) COPD (chronic obstructive pulmonary disease) Qualifiers: COPD type: unspecified COPD Qualified Code(s): J44.9 - Chronic obstructive pulmonary disease, unspecified (5) Hepatitis C Qualifiers: Viral hepatitis chronicity: chronic Hepatic coma status: without hepatic coma Qualified Code(s): B18.2 - Chronic viral hepatitis C (9) Sacral decubitus ulcer Qualifiers: Pressure injury stage: stage 4 Qualified Code(s): L89.154 - Pressure ulcer of sacral region, stage 4
[2018-12-12] MEDS ORDERED: Gadolinium Contrast Agent (WT Based) IV PRN (09:58)
[2018-12-12] MEDS: Fluconazole 200 MG/100 ML 200 MG/100 ML BAG IVPB SCH (10:41)
[2018-12-12] MEDS: Budesonide/Formoterol 80/4.5 MDI IH SCH ×2 (11:26→20:28)
[2018-12-12] MEDS: OLANZapine 10 MG TAB.RAPDIS PO SCH (16:57)
[2018-12-12] MEDS: Melatonin 3 MG TABLET PO SCH (21:06)
[2018-12-13] MEDS: Piperacillin/Tazobactam 3.375 GM in 0.9 % Sodium Chloride Mini Bag 100 ML IVPB SCH ×4 (00:41→23:31)
[2018-12-13] MEDS: 0.9 % Sodium Chloride 500 ML IVC SCH ×2 (01:45→02:22)
[2018-12-13] MEDS: *HR* Enoxaparin 40 MG/0.4 ML SYRINGE SQ SCH (04:45)
[2018-12-13] MEDS ORDERED: 0.9 % Sodium Chloride 500 ML IVC ONE (04:56)
--- NOTE | 2018-12-13 07:26 | Internal Med Progress Note ---
<Griffin Biswas - Last Filed: 12/13/18 13:02> Hospitalist Progress Note - Encounter Date of Encounter: 12/13/18 Time of Encounter: 09:50 - Exam Vitals: Temp Pulse Resp BP Pulse Ox 97.7 F 88 16 96/61 97 12/13/18 10:47 12/13/18 10:47 12/13/18 10:47 12/13/18 10:47 12/13/18 10:47 - Assessment and Plan (1) Decubitus ulcer of left leg, unstageable Current Visit: Yes Status: Acute (2) Complicated UTI (urinary tract infection) Current Visit: Yes Status: Acute (3) Pressure ulcer of right heel, unstageable Current Visit: Yes Status: Acute (4) COPD (chronic obstructive pulmonary disease) Current Visit: Yes Status: Chronic (5) Hepatitis C Current Visit: Yes Status: Chronic (6) Mood disorder Current Visit: Yes Status: Chronic (7) Osteomyelitis of sacrum Current Visit: Yes Status: Chronic (8) Paraplegia Current Visit: Yes Status: Chronic (9) Sacral decubitus ulcer Current Visit: Yes Status: Chronic - Time Spent with Patient Total time spent is greater than 50% in coordination of care (as documented) at patient's floor/unit and/or counseling patient: Internal Medicine: Result - Labs CBC & Chem 7: 12/13/18 08:40 12/13/18 08:40 Labs: Short CBC 12/13/18 Range/Units 08:40 WBC 6.4 (4.3-11.1) K/mcL Hgb 8.6 L (12.9-16.9) g/dL Hct 29.0 L (37.5-50.1) % Plt Count 168 (140-400) K/mcL Neutrophils # 3.6 (1.6-8.9) K/mcL BMP 12/13/18 08:40 Sodium 140 Potassium 4.0 Chloride 105 Carbon Dioxide 28 BUN 9 Creatinine 0.66 L Glucose 79 Calcium 9.5 - ABG Interpretation ABG results: PT/INR, D-dimer PT 13.7 Seconds (9.4-12.1) H 12/09/18 20:27 - Impressions Impressions Lower Extremity MRI 12/12/18 09:58 IMPRESSION: 1. Broad ulceration with moderate surrounding cellulitis along the anteromedial aspect of the left leg with exposure of the subjacent mid tibial diaphyseal cortex and subjacent cortical destruction as well as osteomyelitis of the mid left tibial diaphysis. 2. Ulcer at the lateral aspect of the left ankle with subjacent osteomyelitis at the lateral malleolus. 3. Moderate diffuse infectious myositis of the musculature of the left lower leg. 4. No acute fracture identified. The findings were sent to the Radiology Results Communication Center at 1:51 pm on 12/12/2018to be communicated to a licensed caregiver. D/ / 12/12/2018 13:56:26 Uriel Smith MD / Karen Gerardo Interpreting Provider: Uriel Smith MD Consult Discharge Plan - Plan Referrals: Brock Lyle MD [Non-Partnered Physician] - 12/29/18 8:00 am (IN [facility]) NONE,PCP [Primary Care Provider] - - Attending Attestation I saw evaluated and examined this patient and my medical decision-making was reviewed with the Resident Physician, Gladis Franklin. I agree with the documented findings, disposition and treatment plan as described except to any changes set forth below. We independently had [id number] contact with the patient. Patient apparently tried pulling out his Mccallum catheter last night and developed hematuria. He does not recollect why he did pull it out. Denies any pain at this time. No fevers or chills reported overnight. He does seem to be a bit c onfused this morning. General: Patient is alert, no acute distress, oriented x 2 ENT: Mucous membranes moist Respiratory: Good respiratory effort. Normal breath sounds. No wheezing or crackles. Cardiovascular: Regular rate and rhythm. s1 and s2 normal No clicks, rubs, gallops, or murmurs. No pedal edema Abdomen: Abdomen is soft, nontender. Bowel sounds are present Musculoskeletal: Paraplegia. Skin: Multiple decubitus ulcers involving the sacral region, bilateral heels in various stages. Neuro: Alert oriented x 3 normal cranial nerves, patient has paraplegia. Complicated urinary tract infection: Urine culture growing Acinetobacter, yeast. This is sensitive to Bactrim. Will discuss with ID tomorrow. For now start Bactrim. Patient is already on fluconazole. Chronic osteomyelitis of the sacrum/coccygeal region with stage IV decubitus ulcers: Wound culture from sacral wound growing Klebsiella that seems ESBL and providentia. Both are sensitive to Zosyn. Continue Zosyn. Decubitus ulcers on left leg with osteomyelitis per MRI: With underlying osteomyelitis. Podiatry following. On culture growing gram-negative rods. Paraplegia: Fall precautions. Continue supportive care. Percocet and tramadol for pain control. Patient at risk for continued worsening of decubitus ulcers. Continue prophylactic measures. Mood disorder: Continue BuSpar, nortriptyline and Zyprexa DVT prophylaxis with subcutaneous Lovenox. <Gladis Franklin - Last Filed: 12/13/18 13:15> Hospitalist Progress Note - Encounter Date of Encounter: 12/13/18 Time of Encounter: 08:32 - Subjective Interval History: Patient seen and examined at bedside this morning. He is lying in bed upon my arrival. He states that he is currently comfortable, that his pain is at a 5/10. He reports that he is anxious about the amount of antibiotics that he has on and became tearful during the exam. He denies any pain, chest pain, shortness of breath, nausea, vomiting, abdominal pain. - Exam Vitals: Temp Pulse Resp BP Pulse Ox 97.5 F L 94 18 96/54 96 12/13/18 04:50 12/13/18 04:50 12/13/18 04:50 12/13/18 05:40 12/13/18 04:50 Exam: General: alert and oriented, frail, in NAD HEENT: NC/AT, PERRLA, EOMI, mucous membranes moist Cardio: RRR w/o MRG, pulses 2+ and Respiratory: LCTAB, no cyanosis or clubbing Abd: soft, non-tender, no guarding or rigidity, bs present. Stoma left lower abdomen Extremities: non-tender, no edema, pulses 2+, PICC in place right UE Skin: warm, dry, multiple wounds that are currently dressed on his bilateral legs, and sacrum. He has heelmedix boots on b/l. Neuro: alert and oriented, paraplegia Psych: Tearful - Assessment and Plan (1) Sacral decubitus ulcer Current Visit: Yes Status: Chronic Assessment and Plan: Patient has chronic stage 4 sacral decubitus ulcer with osteomyelitis, completed course of IV INVAnz at [facility] from 10/19 x6 weeks He presented after 2 days of fever with multiple sources for infection including indwelling mccallum, PICC and numerous pressure ulcers and wounds Decubitus ulcer on sacrum demonstrates purulent drainage Wound culture growing gram Kelbsiella pneumoniae ESBL and Providencia stuartii, both sensitive to zosyn. Blood cultures obtained including PICC sample, results pending Nasal MRSA swab negative ID, general surgery and wound care have been consulted, appreciate their rec ommendations on wound management. Overall poor prognosis and healing ability of the ulcers given patient's reluctance to undergo plastic surgery. BS have been well controlled. Plan: -Continue wound care per General Surgery -Continue IV Zosyn and doxycycline pending culture results -Continue with pain control as ordered -Tight glycemic control to promote wound healing. (2) Decubitus ulcer of left leg, unstageable Current Visit: Yes Status: Acute Assessment and Plan: Pressure ulcer of left tibia measuring 9 x 3 cm. Podiatry noted eschar to wound bed, no fluctuance noted. Foul odor noted. Surrounding tissue erythematous, no streaking noted. XR demonstrated findings concerning for possible osteomyelitis along the mid left tibia medial diaphysis. MRI Left LE: Broad ulceration with moderate surrounding cellulitis along theanteromedial aspect of the left leg with exposure of the subjacent mid tibial diaphyseal cortex and subjacent cortical destruction as well as osteomyelitis of the mid left tibial diaphysis. Ulcer at the lateral aspect of the left ankle with subjacent osteomyelitis at the lateral malleolus. Moderate diffuse infectious myositis of the musculature of the left lower leg. Plan: -Continue zosyn as he has grown klebsiella in the past sensitive to zosyn and MRSA swab is negative -Further abx recs appreciated by ID -Wound management per podiatry (3) Osteomyelitis of sacrum Current Visit: Yes Status: Chronic Assessment and Plan: Patient has completed 6 week course of abx for treament, CT findings consistent with healing disease ID has been consulted, appreciate their recommendations. Surgery has been consulted for evalution and management of wounds, will follow their recommendations Wound care consulted Plan: -Continue wound care per ID and surgery (4) Pressure ulcer of right heel, unstageable Current Visit: Yes Status: Acute Assessment and Plan: Wound care per surgery and podiatry (5) Pressure ulcer of left ankle, stage 3 Current Visit: Yes Status: Chronic Assessment and Plan: Wound care per surgery and podiatry (6) UTI (urinary tract infection) Current Visit: Yes Status: Acute Assessment and Plan: Recurrent UTI from chronic dwelling mccallum Previous urine cultures 10/14/2018: Klebsiella pneumoniae S: Carbapnem and zosyn (otherwise fatima resistant) and Proteus mirabilis S: Ertapenem, imipenem and Zosyn (otherwise fatima resistant). Culture growing Acinetobacter baumannii MDRO sensitive only to TMP/SMX and yeast. Per nursing pt had large blood clot in mccallum bag. Pt reports pulling on mccallum, has hx of pulling mccallum out. Mccallum currently in place and bag will be changed. Will continue to monitor and further intervention will be done as needed. Plan: -Start Bactrim -Diflucan daily -Contact precautions -ID has been consulted, appreciate recommendations -Will need new mccallum placed prior to discharge (7) Paraplegia Current Visit: Yes Status: Chronic Assessment and Plan: Continue with regular turning and wound care to avoid worsening of pressure ulcers and wounds. Fall precautions. (8) COPD (chronic obstructive pulmonary disease) Current Visit: Yes Status: Chronic Assessment and Plan: Not currently in exacerbation Plan: -Continue home meds. (9) Mood disorder Current Visit: Yes Status: Chronic Assessment and Plan: Continue BuSpar, nortriptyline and Zyprexa (10) Hepatitis C Current Visit: Yes Status: Chronic Assessment and Plan: chronic (11) Tobacco use Current Visit: Yes Status: Chronic Assessment and Plan: Encourage cessation DVT Prophylaxis: lovenox SQ - Time Spent with Patient Total time spent is greater than 50% in coordination of care (as documented) at patient's floor/unit and/or counseling patient: Internal Medicine: Result - Labs CBC & Chem 7: 12/13/18 08:40 12/13/18 08:40 - ABG Interpretation ABG results: PT/INR, D-dimer PT 13.7 Seconds (9.4-12.1) H 12/09/18 20:27 - Impressions Impressions Lower Extremity MRI 12/12/18 09:58 IMPRESSION: 1. Broad ulceration with moderate surrounding cellulitis along the anteromedial aspect of the left leg with exposure of the subjacent mid tibial diaphyseal cortex and subjacent cortical destruction as well as osteomyelitis of the mid left tibial diaphysis. 2. Ulcer at the lateral aspect of the left ankle with subjacent osteomyelitis at the lateral malleolus. 3. Moderate diffuse infectious myositis of the musculature of the left lower leg. 4. No acute fracture identified. The findings were sent to the Radiology Results Communication Center at 1:51 pm on 12/12/2018to be communicated to a licensed caregiver. D/ / 12/12/2018 13:56:26 Uriel Smith MD / Karen Gerardo Interpreting Provider: Uriel Smith MD <Griffin Biswas - Last Filed: 12/13/18 13:02> (4) COPD (chronic obstructive pulmonary disease) Qualifiers: COPD type: chronic bronchitis Chronic bronchitis type: simple Qualified Code(s): J41.0 - Simple chronic bronchitis (5) Hepatitis C Qualifiers: Viral hepatitis chronicity: chronic Hepatic coma status: without hepatic coma Qualified Code(s): B18.2 - Chronic viral hepatitis C (9) Sacral decubitus ulcer Qualifiers: Pressure injury stage: stage 4 Qualified Code(s): L89.154 - Pressure ulcer of sacral region, stage 4 <Gladis Franklin - Last Filed: 12/13/18 13:15> (1) Sacral decubitus ulcer Qualifiers: Pressure injury stage: stage 4 Qualified Code(s): L89.154 - Pressure ulcer of sacral region, stage 4 (6) UTI (urinary tract infection) Qualifiers: Urinary tract infection type: acute cystitis Hematuria presence: with hematuria Qualified Code(s): N30.01 - Acute cystitis with hematuria (8) COPD (chronic obstructive pulmonary disease) Qualifiers: COPD type: chronic bronchitis Chronic bronchitis type: simple Qualified Code(s): J41.0 - Simple chronic bronchitis (10) Hepatitis C Qualifiers: Viral hepatitis chronicity: chronic Hepatic coma status: without hepatic coma Qualified Code(s): B18.2 - Chronic viral hepatitis C
[2018-12-13] MEDS: Iron Polysaccharide Complex 150 MG CAPSULE PO SCH (08:43)
[2018-12-13] MEDS: Fluconazole 200 MG/100 ML 200 MG/100 ML BAG IVPB SCH (08:43)
[2018-12-13] MEDS: Gabapentin 300 MG CAPSULE PO SCH ×3 (08:43→20:24)
[2018-12-13] MEDS: Baclofen 10 MG TABLET PO SCH ×3 (08:45→20:24)
[2018-12-13] MEDS: Multivit/Ca/Min/Fe/FA 1 TAB TABLET PO SCH (08:45)
[2018-12-13] MEDS: Famotidine 20 MG TABLET PO SCH ×2 (08:45→15:58)
[2018-12-13] MEDS: Valproic Acid 250 MG CAPSULE PO SCH ×3 (08:45→20:23)
[2018-12-13] MEDS: Lactulose Oral Soln 20 GM/30 ML UDC PO SCH ×3 (08:45→15:58)
[2018-12-13] MEDS: Zinc Sulfate 220 MG CAPSULE PO SCH ×2 (08:45→20:24)
[2018-12-13] MEDS: Doxycycline 100 MG CAPSULE PO SCH ×2 (08:45→20:23)
[2018-12-13] MEDS: Budesonide/Formoterol 80/4.5 MDI IH SCH ×2 (08:54→19:45)
[2018-12-13] MEDS: Ascorbic Acid 500 MG TABLET PO SCH ×2 (09:01→20:23)
[2018-12-13 09:31] LABS: Basophils % 0.3 %; Eosinophils # 0.4 K/mcL (0.0-0.6); Eosinophils % 6.7 %; Hemoglobin 8.6 g/dL (12.9-16.9); Immature Granulocytes % 0.5 % (0-4); Lymphocytes % 31.3 %; Mean Corpuscular HGB Conc 29.7 g/dL (31.6-35.5); Mean Corpuscular Volume 80.8 fL (83.0-100.0); Mean Platelet Volume 8.6 fL (9.4-12.4); Monocytes # 0.4 K/mcL (0.0-1.3); Monocytes % 5.9 %; Neutrophils # 3.6 K/mcL (1.6-8.9); Platelet Count 168 K/mcL (140-400); Red Blood Count 3.59 M/mcL (4.19-5.50); Segmented Neutrophils % 55.3 %
[2018-12-13 09:49] LABS: BUN/Creatinine Ratio 14 (6-26); Blood Urea Nitrogen 9 mg/dL (6-20); Calcium 9.5 mg/dL (8.6-10.3); Carbon Dioxide 28 mEq/L (23-29); Chloride 105 mEq/L (98-107); Glucose 79 mg/dL (70-105); Osmolality,Calculated 288 (280-300); Sodium 140 mEq/L (136-145); eGFR For Non-African Americans > 60 (> 60)
[2018-12-13] MEDS ORDERED: 0.9 % Sodium Chloride 250 ML ONE (13:15)
[2018-12-13] MEDS: *HR* OxyCODONE/APAP 5/325 TABLET PO PRN ×2 (15:57→23:30)
--- NOTE | 2018-12-13 16:40 | Event Note ---
Date of Encounter: 12/13/18 Time of Encounter: 16:39 RN reports that patient continues to have hematuria in mccallum. Urine is flowing into bag without difficulty. Mccallum bag has dark red clots and urine. Has been flowing well. Hgb was stable this morning at his baseline. VSS. Pt alert and oriented, but goes on tangents unrelated to conversation. He has been doing this all day. Urology (Dr. Carmona) was consulted to see the patient in the morning for further evaluation. Did advise nursing to contact hospitalist or Dr. Carmona if there is an issue with the mccallum, more bleeding etc. overnight.
[2018-12-13] MEDS: OLANZapine 10 MG TAB.RAPDIS PO SCH (18:04)
[2018-12-13] MEDS: Melatonin 3 MG TABLET PO SCH (20:24)
[2018-12-13] MEDS: Sulfamethoxazole/Trimeth DS 1 EACH TABLET PO SCH (20:24)
[2018-12-13] MEDS: Gentamicin Oint 15 GM TUBE TP SCH ×2 (23:32)
[2018-12-14 04:07] LABS: Basophils % 0.2 %; Eosinophils # 0.2 K/mcL (0.0-0.6); Eosinophils % 1.5 %; Hematocrit 26.9 % (37.5-50.1); Hemoglobin 7.9 g/dL (12.9-16.9); Immature Granulocytes % 0.8 % (0-4); Immature Platelets 1.3 % (1.1-6.1); Lymphocytes % 15.4 %; Mean Corpuscular HGB Conc 29.4 g/dL (31.6-35.5); Mean Corpuscular Hemoglobin 23.7 pg (28.0-33.3); Mean Corpuscular Volume 80.5 fL (83.0-100.0); Mean Platelet Volume 9.6 fL (9.4-12.4); Monocytes # 0.8 K/mcL (0.0-1.3); Monocytes % 6.3 %; Neutrophils # 9.8 K/mcL (1.6-8.9); Platelet Count 188 K/mcL (140-400); Red Blood Count 3.34 M/mcL (4.19-5.50); Red Cell Distribution Width 17.2 % (11.5-14.5); Segmented Neutrophils % 75.8 %
[2018-12-14 04:22] LABS: BUN/Creatinine Ratio 15 (6-26); Blood Urea Nitrogen 16 mg/dL (6-20); Calcium 9.2 mg/dL (8.6-10.3); Carbon Dioxide 26 mEq/L (23-29); Chloride 106 mEq/L (98-107); Glucose 118 mg/dL (70-105); Osmolality,Calculated 292 (280-300); Potassium 4.3 mEq/L (3.5-5.1); Sodium 140 mEq/L (136-145); eGFR For Non-African Americans > 60 (> 60)
[2018-12-14 07:05] LABS: Magnesium 1.3 mg/dL (1.6-2.6)
[2018-12-14 07:52] LABS: INR 1.2
--- NOTE | 2018-12-14 08:18 | Urology - Consult Note ---
<Kathy Carver N - Last Filed: 12/14/18 09:38> Date of Encounter: 12/14/18 Time of Encounter: 07:40 - Assessment and Plan (1) Complicated UTI (urinary tract infection) Current Visit: Yes Status: Acute Assessment and plan: Patient is a 53-year-old male who presents with a chronic indwelling Willis catheter and MDRO Acinetobacter, yeast urinary tract infection. Vital signs are stable and afebrile. Renal function is reassuring. White blood cell count is elevated to 12.9. Patient is receiving Bactrim and fluconazole. Final blood cultures are pending. Appreciate infectious disease recommendations. (2) Gross hematuria Current Visit: No Status: Acute Assessment and plan: Patient is a 53-year-old male who presents with gross hematuria following catheter trauma. Willis irrigated with some resistance. I was able to hand irrigate 500 mL of sterile water with return of frothy, malodorous blood tinged urine. 2 small clots were evacuated. Urine appeared transparent pink lemonade after irrigation. Patient tolerated well without difficulty. Urology CN:[facility] Consult date: 12/14/18 Reason for consult Urology: Gross Hematuria History of present illness: Patient is a 53-year-old male who presents with gross hematuria following catheter trauma. Patient reportedly pulled on Willis catheter and subsequently experienced blood in the urine. Patient has a significant history for paraplegia, chronic decubitus ulcers, chronic indwelling Willis catheter, recurrent urinary infections. Patient's urine is positive for multi-drug resistant Acinetobacter and yeast. Patient is receiving Bactrim and Diflucan. Decubiti culture is positive for gram negative rods with final sensitivity report pending. Patient seen and examined lying in bed sleeping. Patient very fatigued declined to participate in answering any pointed past medical history questions. Patient is new to our service, and he has a new patient appointment pending for 12/17/[address] Perez. Past Med Surg Social Fam HX - Past Medical History Medical history: COPD, dementia, GERD, hepatitis, other Additional medical history: spinal stenosis, anemia, encephalopathy, GI hemorrhage,MRSA, osteomyelitis, pressure ulcer Psychiatric history: bipolar, schizophrenia - Past Surgical History Surgical History: non-contributory Additional surgical history: back/spine surgery, evacuation of epidural abscess, I&D, C5-T1 laminectomy December 2017 - Social History Smoking Status: Current every day smoker Smokeless Tobacco Status: No Alcohol use: none Drug use: none - Family History Father Living Status: Hx Family Cardiac Disorders: Yes ([place]) Mother Living Status: Hx Family Cancer: Yes Medications and Allergies Albuterol Neb [Proventil Neb] 2.5 mg IH Q6H PRN 07/01/18 [History] Baclofen [Lioresal] 10 mg PO TID 07/01/18 [History] Famotidine [Heartburn Prevention] 20 mg PO Q12H 07/01/18 [History] Gabapentin [Neurontin] 600 mg PO TID 07/01/18 [History] Heparin 5,000 unit SQ Q8H 07/01/18 [History] Nortriptyline [Pamelor] 25 mg PO HS 07/01/18 [History] Ascorbic Acid [Vitamin C] 500 mg PO BID 07/28/18 [History] Budesonide/Formoterol 80/4.5 [Symbicort 80/4.5] 2 puff IH BID 07/28/18 [History] Lactulose [Enulose] 20 gm PO TIDWM 07/28/18 [History] Lidocaine [Aspercreme] 1 patch TP DAILY 07/28/18 [History] Melatonin [Melatin] 3 mg PO HS 07/28/18 [History] Multivitamin [Multivitamins] 1 tab PO DAILY 07/28/18 [History] OLANZapine [Zyprexa] 10 mg PO QPM 07/28/18 [History] Zinc Sulfate 220 mg PO BID 07/28/18 [History] Acetaminophen [Tylenol] 650 mg PO Q8H PRN 08/04/18 [History] Amino Acids/Protein Hydrolys [Pro-Stat Awc Liquid] 30 ml PO BID 09/09/18 [History] Buspirone HCl [Buspar] 5 mg PO TID 09/09/18 [History] Valproic Acid [Depakene] 500 mg PO Q8H 09/18/18 [History] Doxycycline Hyclate 100 mg PO BID 60 Days #90 capsule 10/19/18 [Rx] Tramadol HCl [Ultram] 50 mg PO Q8H PRN 10 Days #30 tablet 10/19/18 [Rx] Ferrous Sulfate 325 mg PO BID 12/11/18 [History] Magnesium Oxide [Magnesium] 400 mg PO DAILY 12/11/18 [History] Allergy/AdvReac Type Severity Reaction Status Date / Time No Known Allergies Allergy Verified 08/02/18 22:22 Review of Systems ROS unobtainable: due to mental status Exam Initial Vital Signs Temp Pulse Resp BP Pulse Ox 99.5 F 120 18 122/77 98 12/09/18 19:33 12/09/18 19:33 12/09/18 19:33 12/09/18 19:33 12/09/18 19:33 - General physical appearance Present: no distress, no pain, chronically ill - Eyes Present: other (patient resting with eyes closed ) - ENT Present: normal nares, no congestion - Neck Present: trachea midline - Respiratory Present: normal respiratory effort - Genitourinary other (Willis catheter indwelling and draining transparent bebe-colored urine into bedside bag) - Integumentary Present: no rash, no abnormal pigmentation - Neurologic Present: other (patient sleeping) - Musculoskeletal Present: other (spastic contracture of bilateral lower extremities) Urology Results - Labs 12/14/18 03:36 12/14/18 03:36 Abnormal lab results WBC 12.9 K/mcL (4.3-11.1) H D 12/14/18 03:36 RBC 3.34 M/mcL (4.19-5.50) L 12/14/18 03:36 Hgb 7.9 g/dL (12.9-16.9) L 12/14/18 03:36 Hct 26.9 % (37.5-50.1) L 12/14/18 03:36 MCV 80.5 fL (83.0-100.0) L 12/14/18 03:36 MCH 23.7 pg (28.0-33.3) L 12/14/18 03:36 MCHC 29.4 g/dL (31.6-35.5) L 12/14/18 03:36 RDW 17.2 % (11.5-14.5) H 12/14/18 03:36 Neutrophils # 9.8 K/mcL (1.6-8.9) H 12/14/18 03:36 ESR >= 130 mm/hr (0-10) H 12/11/18 05:30 PT 14.0 Seconds (9.4-12.1) H 12/14/18 07:16 Glucose 118 mg/dL (70-105) H 12/14/18 03:36 Magnesium 1.3 mg/dL (1.6-2.6) L 12/14/18 03:36 AST 9 Units/L (13-39) L 12/09/18 20:27 C-Reactive Protein 96 mg/L (Less than 10) H 12/11/18 05:30 Albumin 2.9 g/dL (3.5-5.7) L 12/09/18 20:27 Globulin 3.8 g/dL (2.4-3.5) H 12/09/18 20:27 Albumin/Globulin Ratio 0.8 (1.1-2.2) L 12/09/18 20:27 Ur Specimen Adequacy See below A 12/09/18 22:01 Urine Clarity Cloudy (Clear) A 12/09/18 22:01 Urine Protein 30 mg/dL (Neg-Trace) H 12/09/18 22:01 Urine Blood Large (Negative) H 12/09/18 22:01 Ur Leukocyte Esterase Large (Negative) H 12/09/18 22:01 Urine Microscopic WBC 15-30 per hpf (0-3) H 12/09/18 22:01 Urine Yeast Moderate per hpf (None Seen) H 12/09/18 22:01 Ur Culture Indicated? YES (NO) A 12/09/18 22:01 Diabetes panel 12/13/18 12/14/18 Range/Units 08:40 03:36 Sodium 140 140 (136-145) mEq/L Potassium 4.0 4.3 (3.5-5.1) mEq/L Chloride 105 106 (98-107) mEq/L Carbon Dioxide 28 26 (23-29) mEq/L BUN 9 16 (6-20) mg/dL Creatinine 0.66 L 1.08 (0.70-1.30) mg/dL Glucose 79 118 H (70-105) mg/dL Calcium 9.5 9.2 (8.6-10.3) mg/dL Calcium panel 12/13/18 12/14/18 Range/Units 08:40 03:36 Calcium 9.5 9.2 (8.6-10.3) mg/dL Pituitary panel 12/13/18 12/14/18 Range/Units 08:40 03:36 Sodium 140 140 (136-145) mEq/L Potassium 4.0 4.3 (3.5-5.1) mEq/L Chloride 105 106 (98-107) mEq/L Carbon Dioxide 28 26 (23-29) mEq/L BUN 9 16 (6-20) mg/dL Creatinine 0.66 L 1.08 (0.70-1.30) mg/dL Glucose 79 118 H (70-105) mg/dL Calcium 9.5 9.2 (8.6-10.3) mg/dL Adrenal panel 12/13/18 12/14/18 Range/Units 08:40 03:36 Sodium 140 140 (136-145) mEq/L Potassium 4.0 4.3 (3.5-5.1) mEq/L Chloride 105 106 (98-107) mEq/L Carbon Dioxide 28 26 (23-29) mEq/L BUN 9 16 (6-20) mg/dL Creatinine 0.66 L 1.08 (0.70-1.30) mg/dL Glucose 79 118 H (70-105) mg/dL Calcium 9.5 9.2 (8.6-10.3) mg/dL All other labs normal. - Imaging CT scan - abdomen: report reviewed CT scan - pelvis: report reviewed (reviewed from 09/2018) Procedures:Urology - Bladder Irrigation/Clot Evacuation Irrigation: other (sterile water ) Patient tolerated procedure: well, no complications Continuous Bladder Irrigation: No Additional comments: 2 small clots evacuated from bladder Consult Discharge Plan - Plan Referrals: Brock Lyle MD [Non-Partnered Physician] - 12/29/18 8:00 am (IN [facility]) NONE,PCP [Primary Care Provider] - <Jayson Carmona - Last Filed: 12/14/18 09:58> Date of Encounter: 12/14/18 - Assessment and Plan (1) Willis catheter problem Current Visit: Yes Status: Acute Assessment and plan: pt seen and examined. I agree with PA findings in addition to my findings and plan I actually evaluated pt before our PA. the cath would was not irrigating well and I was unable to manipulate cath back into the bladder indicating the balloon was in the urethra. I deflated the balloon and was able to "hub" the cath and reinflated balloon with 20 cc. It then easily irrigated. no clots. with these findings I suspect the cath was not fully in the bladder overnight a nd at admission he has severe erosive hypospadius which is chronic. he ma benefit from a suprapubic cath placement as an outpatient. Qualifiers: Encounter type: initial encounter Qualified Code(s): T83.9XXA - Unspecified complication of genitourinary prosthetic device, implant and graft, initial encounter Exam Initial Vital Signs Temp Pulse Resp BP Pulse Ox 99.5 F 120 18 122/77 98 12/09/18 19:33 12/09/18 19:33 12/09/18 19:33 12/09/18 19:33 12/09/18 19:33 Urology Results - Labs 12/14/18 03:36 12/14/18 03:36 Abnormal lab results WBC 12.9 K/mcL (4.3-11.1) H D 12/14/18 03:36 RBC 3.34 M/mcL (4.19-5.50) L 12/14/18 03:36 Hgb 7.9 g/dL (12.9-16.9) L 12/14/18 03:36 Hct 26.9 % (37.5-50.1) L 12/14/18 03:36 MCV 80.5 fL (83.0-100.0) L 12/14/18 03:36 MCH 23.7 pg (28.0-33.3) L 12/14/18 03:36 MCHC 29.4 g/dL (31.6-35.5) L 12/14/18 03:36 RDW 17.2 % (11.5-14.5) H 12/14/18 03:36 Neutrophils # 9.8 K/mcL (1.6-8.9) H 12/14/18 03:36 ESR >= 130 mm/hr (0-10) H 12/11/18 05:30 PT 14.0 Seconds (9.4-12.1) H 12/14/18 07:16 Glucose 118 mg/dL (70-105) H 12/14/18 03:36 Magnesium 1.3 mg/dL (1.6-2.6) L 12/14/18 03:36 AST 9 Units/L (13-39) L 12/09/18 20:27 C-Reactive Protein 96 mg/L (Less than 10) H 12/11/18 05:30 Albumin 2.9 g/dL (3.5-5.7) L 12/09/18 20:27 Globulin 3.8 g/dL (2.4-3.5) H 12/09/18 20:27 Albumin/Globulin Ratio 0.8 (1.1-2.2) L 12/09/18 20:27 Ur Specimen Adequacy See below A 12/09/18 22:01 Urine Clarity Cloudy (Clear) A 12/09/18 22:01 Urine Protein 30 mg/dL (Neg-Trace) H 12/09/18 22:01 Urine Blood Large (Negative) H 12/09/18 22:01 Ur Leukocyte Esterase Large (Negative) H 12/09/18 22:01 Urine Microscopic WBC 15-30 per hpf (0-3) H 12/09/18 22:01 Urine Yeast Moderate per hpf (None Seen) H 12/09/18 22:01 Ur Culture Indicated? YES (NO) A 12/09/18 22:01 Diabetes panel 12/14/18 Range/Units 03:36 Sodium 140 (136-145) mEq/L Potassium 4.3 (3.5-5.1) mEq/L Chloride 106 (98-107) mEq/L Carbon Dioxide 26 (23-29) mEq/L BUN 16 (6-20) mg/dL Creatinine 1.08 (0.70-1.30) mg/dL Glucose 118 H (70-105) mg/dL Calcium 9.2 (8.6-10.3) mg/dL Calcium panel 12/14/18 Range/Units 03:36 Calcium 9.2 (8.6-10.3) mg/dL Pituitary panel 12/14/18 Range/Units 03:36 Sodium 140 (136-145) mEq/L Potassium 4.3 (3.5-5.1) mEq/L Chloride 106 (98-107) mEq/L Carbon Dioxide 26 (23-29) mEq/L BUN 16 (6-20) mg/dL Creatinine 1.08 (0.70-1.30) mg/dL Glucose 118 H (70-105) mg/dL Calcium 9.2 (8.6-10.3) mg/dL Adrenal panel 12/14/18 Range/Units 03:36 Sodium 140 (136-145) mEq/L Potassium 4.3 (3.5-5.1) mEq/L Chloride 106 (98-107) mEq/L Carbon Dioxide 26 (23-29) mEq/L BUN 16 (6-20) mg/dL Creatinine 1.08 (0.70-1.30) mg/dL Glucose 118 H (70-105) mg/dL Calcium 9.2 (8.6-10.3) mg/dL All other labs normal.
[2018-12-14] MEDS: Fluconazole 200 MG/100 ML 200 MG/100 ML BAG IVPB SCH (08:46)
[2018-12-14] MEDS: Piperacillin/Tazobactam 3.375 GM in 0.9 % Sodium Chloride Mini Bag 100 ML IVPB SCH (08:46)
--- NOTE | 2018-12-14 09:20 | Internal Med Progress Note ---
<Zulaygualberto - Last Filed: 12/14/18 13:24> Hospitalist Progress Note - Encounter Date of Encounter: 12/14/18 Time of Encounter: 10:10 - Exam Vitals: Temp Pulse Resp BP Pulse Ox 96.6 F L 88 17 94/54 94 12/14/18 11:45 12/14/18 11:45 12/14/18 11:45 12/14/18 11:45 12/14/18 11:45 - Assessment and Plan (1) COPD (chronic obstructive pulmonary disease) Current Visit: Yes Status: Chronic (2) Hepatitis C Current Visit: Yes Status: Chronic (3) Mood disorder Current Visit: Yes Status: Chronic (4) Pressure ulcer of right heel, unstageable Current Visit: Yes Status: Acute (5) Osteomyelitis of sacrum Current Visit: Yes Status: Chronic (6) Paraplegia Current Visit: Yes Status: Chronic (7) Complicated UTI (urinary tract infection) Current Visit: Yes Status: Acute (8) Sacral decubitus ulcer Current Visit: Yes Status: Chronic (9) Decubitus ulcer of left leg, unstageable Current Visit: Yes Status: Acute - Time Spent with Patient Total time spent is greater than 50% in coordination of care (as documented) at patient's floor/unit and/or counseling patient: Internal Medicine: Result - Labs CBC & Chem 7: 12/14/18 03:36 12/14/18 03:36 Labs: Short CBC 12/14/18 Range/Units 03:36 WBC 12.9 H D (4.3-11.1) K/mcL Hgb 7.9 L (12.9-16.9) g/dL Hct 26.9 L (37.5-50.1) % Plt Count 188 (140-400) K/mcL Neutrophils # 9.8 H (1.6-8.9) K/mcL BMP 12/14/18 03:36 Sodium 140 Potassium 4.3 Chloride 106 Carbon Dioxide 26 BUN 16 Creatinine 1.08 Glucose 118 H Calcium 9.2 - ABG Interpretation ABG results: PT/INR, D-dimer PT 14.0 Seconds (9.4-12.1) H 12/14/18 07:16 - Impressions Impressions Chest X-Ray 12/14/18 06:35 IMPRESSION: Mild right basilar opacity, atelectasis favored over pneumonia. Rotation limits the exam. Consider radiographic follow-up. D/ / 12/14/2018 08:06:52 Luis Sanford MD / ayad Interpreting Provider: Luis Sanford MD Head CT 12/14/18 09:19 IMPRESSION: Chronic microvascular disease without acute intracranial abnormality. D/ / Waldo Mccabe / Waldo Mccabe Interpreting Provider: Waldo Mccabe Consult Discharge Plan - Plan Referrals: Brock Lyle MD [Non-Partnered Physician] - 12/29/18 8:00 am (IN [facility]) NONE,PCP [Primary Care Provider] - (Patient is from [facility]) - Attending Attestation I saw evaluated and examined this patient and my medical decision-making was reviewed with the Resident Physician, Gladis Franklin. I agree with the documented findings, disposition and treatment plan as described except to any changes set forth below. We independently had [id number] contact with the patient. Patient continues to have hematuria but Mccallum catheter draining. He was disoriented this morning when I evaluated him. Very somnolent but awoke and answered questions appropriately although he fell back to sleep immediately. General: Patient is somnolent, disoriented today. ENT: Mucous membranes moist Respiratory: Good respiratory effort. Normal breath sounds. No wheezing or crackles. Cardiovascular: Regular rate and rhythm. s1 and s2 normal No clicks, rubs, gallops, or murmurs. No pedal edema Abdomen: Abdomen is soft, nontender. Bowel sounds are present Musculoskeletal: Paraplegia. Skin: Multiple decubitus ulcers involving the sacral region, bilateral heels in various stages. Neuro: Alert oriented x 3 normal cranial nerves, patient has paraplegia. Normal upper extremity strength bilaterally. Sepsis: From acute UTI and osteomyelitis involving sacral region and left lower extremity. Continue IV antibiotics. Blood pressure lobe today. Check lactic acid. IV fluids. Wound culture from left ankle growing Pseudomonas MDRO. Sacral wound growing Klebsiella and Providencia. Urine culture growing Acinetobacter and yeast Complicated urinary tract infection: Urine culture growing Acinetobacter and yeast. Patient has been on fluconazole and was started on Bactrim yesterday. Will follow with ID recommendations.. Acute encephalopathy: Likely due to sepsis. CT of the head was negative. If patient remains somnolent, encephalopathic, will consider lumbar puncture. Chronic osteomyelitis of the sacrum/coccygeal region with stage IV decubitus ulcers: Continue local wound care. Surgery recommendations appreciated. Decubitus ulcers on left leg with osteomyelitis per MRI: Podiatry following. Continue IV antibiotics per infectious disease recommendations. Paraplegia: Fall precautions. Continue supportive carepatient receiving P ercocet and tramadol for pain control. Will decrease dosage and frequency as patient is increasingly somnolent today. Mood disorder: Continue BuSpar, nortriptyline and Zyprexa Hematuria: Due to trauma from patient trying to remove his Mccallum catheter. Urology consult appreciated. DVT prophylaxis with subcutaneous Lovenox. <Ismael Mcgill - Last Filed: 12/14/18 18:01> Hospitalist Progress Note - Encounter Date of Encounter: 12/14/18 Time of Encounter: 09:20 - Subjective Interval History: Patient seen and examined resting comfortably in bed. Of note, his blood pressure was 77/54 overnight and heart rate 119. 1 L normal saline bolus was ordered. Mccallum catheter was replaced this morning by urology with good urine output. Patient has garbled speech today and decreased green chain marker strength on the left. CT head was ordered. Patient changed to NPO diet and speech therapy was consulted. - Exam Vitals: Temp Pulse Resp BP Pulse Ox 98.4 F 113 18 90/54 94 12/14/18 06:45 12/14/18 06:45 12/14/18 06:45 12/14/18 06:45 12/14/18 06:45 Exam: General: alert and oriented, frail, chronically ill-appearing, NAD, arouses to sternal rub HEENT: NC/AT, PERRLA, EOMI, mucous membranes dry Cardio: tachycardic w/o MRG, pulses 2+ Respiratory: CTAB, no cyanosis or clubbing Abd: soft, non-tender, no guarding or rigidity, bs present. Stoma left lower abdomen with no output in ostomy, Mccallum catheter in place Extremities: non-tender, no edema, pulses 2+, PICC in place right UE, left tibia exposed, black Skin: warm, dry, multiple wounds that are currently dressed on his bilateral legs, and sacrum. He has heelmedix boots on b/l. Neuro: Garbled speech, decreased green chain marker strength on left extremity, paraplegia, unable to cooperate with further neuro exam Psych: Awake, normal mood - Assessment and Plan (1) Sepsis Current Visit: No Status: Resolved Assessment and Plan: From acute UTI and osteomyelitis involving sacral region and left lower extremity. Continue IV antibiotics. Blood pressure lobe today. Check lactic acid. IV fluids. Wound culture from left ankle growing Pseudomonas MDRO. Sacral wound growing Klebsiella and Providencia. Urine culture growing Acinetobacter and yeast (2) Acute encephalopathy Current Visit: Yes Status: Acute Assessment and Plan: Acute encephalopathy: Likely due to sepsis. Chronic microvascular disease without acute intracranial abnormality. If patient remains somnolent, encephalopathic, will consider lumbar puncture. (3) Complicated UTI (urinary tract infection) Current Visit: Yes Status: Acute Assessment and Plan: Recurrent UTI from chronic dwelling mccallum Previous urine cultures 10/14/2018: Klebsiella pneumoniae S: Carbapnem and zosyn (otherwise fatima resistant) and Proteus mirabilis S: Ertapenem, imipenem and Zosyn (otherwise fatima resistant). Culture growing Acinetobacter baumannii MDRO sensitive only to TMP/SMX and yeast. Per nursing pt had large blood clot in mccallum bag. Pt reports pulling on mccallum, has hx of pulling mccallum out. Mccallum currently in place and bag will be changed. Will continue to monitor and further intervention will be done as needed. Plan: -Contact precautions -New mccallum placed today -Patient has been on fluconazole and was started on Bactrim yesterday. Will follow with ID recommendations. (4) Osteomyelitis of sacrum Current Visit: Yes Status: Chronic Assessment and Plan: Continue local wound care. Surgery recommendations appreciated. (5) Sacral decubitus ulcer Current Visit: Yes Status: Chronic Assessment and Plan: Patient has chronic stage 4 sacral decubitus ulcer with osteomyelitis, completed course of IV [facility] at [facility] from 10/19 x6 weeks He presented after 2 days of fever with multiple sources for infection including indwelling mccallum, PICC and numerous pressure ulcers and wounds Decubitus ulcer on sacrum demonstrates purulent drainage Wound culture growing gram Kelbsiella pneumoniae ESBL and Providencia stuartii, both sensitive to zosyn. Blood cultures obtained including PICC sample, results pending Nasal MRSA swab negative ID, general surgery and wound care have been consulted, appreciate their recommendations on wound management. Overall poor prognosis and healing ability of the ulcers given patient's reluctance to undergo plastic surgery. BS have been well controlled. Plan: -Continue wound care per General Surgery -Continue antibiotics per ID reccs -Continue with pain control as ordered -Tight glycemic control to promote wound healing. (6) Decubitus ulcer of left leg, unstageable Current Visit: Yes Status: Acute Assessment and Plan: Pressure ulcer of left tibia measuring 9 x 3 cm. Podiatry noted eschar to wound bed, no fluctuance noted. Foul odor noted. Surrounding tissue erythematous, no streaking noted. XR demonstrated findings concerning for possible osteomyelitis along the mid left tibia medial diaphysis. MRI Left LE: Broad ulceration with moderate surrounding cellulitis along theanteromedial aspect of the left leg with exposure of the subjacent mid tibial diaphyseal cortex and subjacent cortical destruction as well as osteomyelitis of the mid left tibial diaphysis. Ulcer at the lateral aspect of the left ankle with subjacent osteomyelitis at the lateral malleolus. Moderate diffuse infectious myositis of the musculature of the left lower leg. Plan: -Continue abx recs by ID -Wound management per podiatry (7) Pressure ulcer of right heel, unstageable Current Visit: Yes Status: Acute Assessment and Plan: Turn patient q2h (8) Paraplegia Current Visit: Yes Status: Chronic Assessment and Plan: Continue supportive care. Patient receiving Percocet and tramadol for pain control. Will decrease dosage and frequency as patient is increasingly somnolent today (9) Hematuria Current Visit: Yes Status: Acute Assessment and Plan: Due to trauma from patient trying to remove his Mccallum catheter. Urology consult appreciated. Placed new mccallum today with adequate urine output (10) COPD (chronic obstructive pulmonary disease) Current Visit: Yes Status: Chronic Assessment and Plan: Not currently in exacerbation Plan: -Continue home meds. (11) Hepatitis C Current Visit: Yes Status: Chronic (12) Mood disorder Current Visit: Yes Status: Chronic Assessment and Plan: Continue BuSpar, nortriptyline and Zyprexa - Time Spent with Patient Total time spent is greater than 50% in coordination of care (as documented) at patient's floor/unit and/or counseling patient: Internal Medicine: Result - Labs CBC & Chem 7: 12/14/18 03:36 12/14/18 03:36 Labs: Short CBC 12/13/18 12/14/18 Range/Units 08:40 03:36 WBC 6.4 12.9 H D (4.3-11.1) K/mcL Hgb 8.6 L 7.9 L (12.9-16.9) g/dL Hct 29.0 L 26.9 L (37.5-50.1) % Plt Count 168 188 (140-400) K/mcL Neutrophils # 3.6 9.8 H (1.6-8.9) K/mcL BMP 12/13/18 12/14/18 08:40 03:36 Sodium 140 140 Potassium 4.0 4.3 Chloride 105 106 Carbon Dioxide 28 26 BUN 9 16 Creatinine 0.66 L 1.08 Glucose 79 118 H Calcium 9.5 9.2 - ABG Interpretation ABG results: PT/INR, D-dimer PT 14.0 Seconds (9.4-12.1) H 12/14/18 07:16 - Pulse Oximetry Interpretation Digit-Finger Pulse Oximetry Readin (On room air) - Impressions Impressions Chest X-Ray 12/14/18 06:35 IMPRESSION: Mild right basilar opacity, atelectasis favored over pneumonia. Rotation limits the exam. Consider radiographic follow-up. D/ / 12/14/2018 08:06:52 Luis Sanford MD / ayad Interpreting Provider: Luis Sanford MD <Griffin Biswas - Last Filed: 12/14/18 13:24> (1) COPD (chronic obstructive pulmonary disease) Qualifiers: COPD type: chronic bronchitis Chronic bronchitis type: simple Qualified Code(s): J41.0 - Simple chronic bronchitis (2) Hepatitis C Qualifiers: Viral hepatitis chronicity: chronic Hepatic coma status: without hepatic coma Qualified Code(s): B18.2 - Chronic viral hepatitis C (8) Sacral decubitus ulcer Qualifiers: Pressure injury stage: stage 4 Qualified Code(s): L89.154 - Pressure ulcer of sacral region, stage 4 <Ismael Mcgill - Last Filed: 12/14/18 18:01> (1) Sepsis Qualifiers: Sepsis type: sepsis due to unspecified organism Qualified Code(s): A41.9 - Sepsis, unspecified organism (5) Sacral decubitus ulcer Qualifiers: Pressure injury stage: stage 4 Qualified Code(s): L89.154 - Pressure ulcer of sacral region, stage 4 (10) COPD (chronic obstructive pulmonary disease) Qualifiers: COPD type: chronic bronchitis Chronic bronchitis type: simple Qualified Code(s): J41.0 - Simple chronic bronchitis (11) Hepatitis C Qualifiers: Viral hepatitis chronicity: chronic Hepatic coma status: without hepatic coma Qualified Code(s): B18.2 - Chronic viral hepatitis C
[2018-12-14] MEDS ORDERED: 0.9 % Sodium Chloride 1,000 ML ONE (09:24)
[2018-12-14] MEDS ORDERED: 0.9 % Sodium Chloride 1,000 ML IVC ONE (09:32)
[2018-12-14] MEDS ORDERED: Sulfamethoxazole/Trimeth 800 ML in D5% in Water 500 ML IVPB SCH (10:00)
[2018-12-14] MEDS ORDERED: Doxycycline 100 MG in 0.9 % Sodium Chloride Mini Bag 100 ML IVPB SCH (10:00)
[2018-12-14] MEDS: Budesonide/Formoterol 80/4.5 MDI IH SCH ×2 (10:40→20:16)
[2018-12-14] MEDS ORDERED: Sulfamethoxazole/Trimeth 10 ML in D5% in Water 500 ML IVPB SCH (11:00)
[2018-12-14] MEDS: Sulfamethoxazole/Trimeth DS 1 EACH TABLET PO SCH (11:16)
[2018-12-14] MEDS: Lactulose Oral Soln 20 GM/30 ML UDC PO SCH ×3 (11:17→15:46)
[2018-12-14] MEDS: Doxycycline 100 MG CAPSULE PO SCH (11:17)
[2018-12-14] MEDS: Famotidine 20 MG TABLET PO SCH ×2 (12:02→15:44)
[2018-12-14] MEDS: Zinc Sulfate 220 MG CAPSULE PO SCH ×2 (12:03→21:44)
[2018-12-14] MEDS: Ascorbic Acid 500 MG TABLET PO SCH ×2 (12:03→21:44)
[2018-12-14] MEDS: Iron Polysaccharide Complex 150 MG CAPSULE PO SCH (12:03)
[2018-12-14] MEDS: Valproic Acid 250 MG CAPSULE PO SCH ×3 (12:03→21:44)
[2018-12-14] MEDS: Gabapentin 300 MG CAPSULE PO SCH ×3 (12:03→21:44)
[2018-12-14] MEDS: Multivit/Ca/Min/Fe/FA 1 TAB TABLET PO SCH (12:04)
[2018-12-14] MEDS: Baclofen 10 MG TABLET PO SCH ×3 (12:04→21:44)
[2018-12-14] MEDS ORDERED: Colistin (Colistimethate) 300 MG in 0.9 % Sodium Chloride 50 ML IVPB ONE (12:57)
--- NOTE | 2018-12-14 14:05 | Infectious Disease Progress No ---
Date of Encounter: 12/14/18 Time of Encounter: 12:30 - Assessment and Plan (1) Sepsis Current Visit: No Status: Resolved The patient has four SIRS criteria including hypothermia, tachycardia, tachypnea, and leukocytosis with hypotension. Likely secondary to complicated UTI and osteomyelitis. He has a RUE PICC line that does not appear infected. Blood cultures drawn 12/09/18 peripherally are negative x 2 sets. Repeat blood culture drawn 12/10/18 from PICC line is NGTD x 1 set. Recommendations. Consider transfer to higher level of care for closer monitoring. Repeat blood cultures x 2 sets now. Send MDR Acinetobacter for colistin susceptibilities and MDR Pseudomonas for Zosyn, colistin, and Avycaz susceptibilities. Get CT of the chest to evaluate for PNA. Discontinue Bactrim, doxycycline, and Zosyn. Discontinue fluconazole. At this point, we are very limited in antibiotic options to treat the patient's wound infections. He has two MDROs which make this a very challenging case. Will start Colistin in attempts to treat these organisms. The patient is at high risk for renal injury so we will have to be cautious in dosing the medication so I have asked pharmacy to assist with this. He will require close renal monitoring. Duration of treatment depends on the clinical picture. Monitor renal function and dose-adjust antibiotics. Sacral wound dressing changes per the wound care team's recommendations. Foot wound dressings per the Podiatry team. Contact precautions per the hospital protocol. Qualifiers: Sepsis type: sepsis due to unspecified organism Qualified Code(s): A41.9 - Sepsis, unspecified organism (2) Complicated UTI (urinary tract infection) Current Visit: Yes Status: Acute Causative organism: MDRO A. baummannii. Yeast species noted in the urine, but not likely contributing to the patient's clinical picture. Willis catheter replaced after patient pulled it out. Urology consulted. Currently on Zosyn, Bactrim, and fluconazole. (3) Osteomyelitis Current Visit: No Status: Chronic Location: Left lateral malleolus and left tibia. Causative organism: MDR PSEA. Likely secondary to chronic non-healing ulcers, worsened by the patient's poor nutritional status. Podiatry consulted and following. Currently on Zosyn, but we do not run Zosyn susceptibilities on this strain of Pseudomonas here in the hospital and it is a send-out. I asked the micro staff to send it out for Avycaz, Zosyn, and Colistin susceptibilities. Given the patient's recent decline in status, will switch to Colistin to see if the patient improves while we wait for susceptibilities. Qualifiers: Osteomyelitis type: other Osteomyelitis location: multiple sites Qualified Code(s): M86.8X0 - Other osteomyelitis, multiple sites (4) Pneumonia Current Visit: No Status: Suspected CXR shows mild right basilar opacity, atelectasis is favored over PNA. The patient has a productive cough with brown sputum and is clinically worsened since admission. MRSA screen negative on admission. Get CT of the chest to evaluate. Currently on Bactrim, doxycycline, and zosyn. 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 (6) Osteomyelitis of coccyx Current Visit: No Status: Acute Causative organism not clear. No cultures were ever obtained but based on urine culture we decided to treat previously with ertapenem Received ertapenem IV (10/14/2018 - 12/03/2018) CT pelvis 12/10/2018: Sacrococcygeal chronic osteomyelitis associated with decubitus ulcer, seen previously. No abscess or fluid collection visualized. Chronic CT findings are expected in patient with chronic osteomyelitis that just finished treatment one week prior to admission Based on the left findings and inflammatory markers, consider a bone biopsy and send biopsy for cultures including routine, aerobic, anaerobic, fungal and AFB, although I am not sure how yielding it will be at this point since the patient has been on IV antibiotics for several days. Wound culture on admission is positive for ESBL K. pneumoniae and P. stuartii. Currently on IV Zosyn. (7) Paraplegia Current Visit: Yes Status: Chronic (8) Tobacco use Current Visit: Yes Status: Chronic (9) Hepatitis C Current Visit: Yes Status: Chronic Qualifiers: Viral hepatitis chronicity: chronic Hepatic coma status: without hepatic coma Qualified Code(s): B18.2 - Chronic viral hepatitis C (10) Anemia Current Visit: Yes Status: Chronic Hgb down to 7.9 this morning. Further workup and management per the primary team. Qualifiers: Anemia type: unspecified type Qualified Code(s): D64.9 - Anemia, unspecifie d - Subjective Interval history: Patient seen and examined. No acute events noted overnight. Patient hypothermic, tachycardic, and lethargic this morning. Unable to provide ROS information. Patient noted to have cough with brown sputum during exam. MRI positive for OM of the tibia and lateral malleolus. CT head this morning was negative. Infect Dis PN-Objective Data - Labs CBC & Chem 7: 12/14/18 03:36 12/14/18 03:36 Labs: Laboratory Results - last 24 hr 12/14/18 12/14/18 12/14/18 03:36 03:36 07:16 WBC 12.9 H D RBC 3.34 L Hgb 7.9 L Hct 26.9 L MCV 80.5 L MCH 23.7 L MCHC 29.4 L RDW 17.2 H Plt Count 188 MPV 9.6 Immature Gran % 0.8 Seg Neutrophils % 75.8 Lymphocytes % 15.4 Monocytes % 6.3 Eosinophils % 1.5 Basophils % 0.2 Neutrophils # 9.8 H Lymphocytes # 2.0 Monocytes # 0.8 Eosinophils # 0.2 Basophils # 0.0 Immature Plt Fraction 1.3 PT 14.0 H INR 1.2 Sodium 140 Potassium 4.3 Chloride 106 Carbon Dioxide 26 BUN 16 Creatinine 1.08 Est GFR ( Amer) > 60 Est GFR (Non-Af Amer) > 60 BUN/Creatinine Ratio 15 Glucose 118 H Calculated Osmolality 292 Lactic Acid Calcium 9.2 Magnesium 1.3 L 12/14/18 07:16 WBC RBC Hgb Hct MCV MCH MCHC RDW Plt Count MPV Immature Gran % Seg Neutrophils % Lymphocytes % Monocytes % Eosinophils % Basophils % Neutrophils # Lymphocytes # Monocytes # Eosinophils # Basophils # Immature Plt Fraction PT INR Sodium Potassium Chloride Carbon Dioxide BUN Creatinine Est GFR ( Amer) Est GFR (Non-Af Amer) BUN/Creatinine Ratio Glucose Calculated Osmolality Lactic Acid 0.7 Calcium Magnesium Cultures: Cultures 12/11/18 18:25 Wound Culture - Preliminary Left Ankle P. aeruginosa MDRO 12/14/18 07:16 Blood Culture - Preliminary Peripheral Venipuncture Culture is incubating and being continuously monitored for growth. Final report to follow. 12/14/18 07:16 Blood Culture - Preliminary Peripheral Venipuncture Culture is incubating and being continuously monitored for growth. Final report to follow. 12/10/18 11:43 Wound Culture - Final Buttock Klebsiella pneumoniae ESBL Providencia stuartii 12/09/18 22:01 Urine Culture - Final Urine,[place] Yeast Species Acinetobacter baumannii MDRO 12/10/18 08:34 Blood Culture - Preliminary Peripheral Central Cath, Picc Culture is incubating and being continuously monitored for growth. Final report to follow. 12/09/18 20:27 Blood Culture - Preliminary Peripheral Venipuncture Culture is incubating and being continuously monitored for growth. Final report to follow. 12/09/18 20:27 Blood Culture - Preliminary Peripheral Venipuncture Culture is incubating and being continuously monitored for growth. Final report to follow. Serology 12/11/18 12/09/18 Range/Units 05:07 22:01 Ur Specimen Adequacy See below A Urine Color Yellow (Yellow) Urine Clarity Cloudy A (Clear) Urine pH 5.5 (5.0-8.0) pH Units Ur Specific [place] 1.020 (1.010-1.025) Urine Protein 30 H (Neg-Trace) mg/dL Urine Glucose (UA) Normal (Normal) mg/dL Urine Ketones Negative (Negative) mg/dL Urine Blood Large H (Negative) Urine Nitrite Negative (Negative) Urine Bilirubin Negative (Negative) Urine Urobilinogen Normal (Normal) mg/dL Ur Leukocyte Esterase Large H (Negative) Urine Microscopic RBC 0-3 (0-3) per hpf Urine Microscopic WBC 15-30 H (0-3) per hpf Urine Bacteria Few (None-Few) per hpf Urine Mucus Few (Few) Urine Yeast Moderate H (None Seen) per hpf Ur Culture Indicated? YES A (NO) Nasal Screen MRSA (PCR) Negative (Negative) - Impressions Impressions Chest X-Ray 12/14/18 06:35 IMPRESSION: Mild right basilar opacity, atelectasis favored over pneumonia. Rotation limits the exam. Consider radiographic follow-up. D/ / 12/14/2018 08:06:52 Luis Sanford MD / ayad Interpreting Provider: Luis Sanford MD Head CT 12/14/18 09:19 IMPRESSION: Chronic microvascular disease without acute intracranial abnormality. D/ / Waldo Mccabe / Waldo Mccabe Interpreting Provider: Waldo Mccabe Exam - Constitutional Vitals: Temp Pulse Resp BP Pulse Ox 96.6 F L 88 17 94/54 94 12/14/18 11:45 12/14/18 11:45 12/14/18 11:45 12/14/18 11:45 12/14/18 11:45 General appearance: cooperative, no acute distress, thin - Head Head exam: Present: atraumatic, normal inspection, normocephalic - Eye Eye exam: Present: EOMI, normal appearance, PERRL Pupils: Present: normal accommodation - ENT ENT exam: Present: mucous membranes moist - Neck Neck exam: Present: normal inspection - Respiratory Respiratory exam: Present: CTAB. Absent: rales, respiratory distress, rhonchi, wheezes - Cardiovascular Cardiovascular exam: Present: +S1, +S2, tachycardia. Absent: irregular rhythm - GI/Abdominal GI/Abdominal exam: Present: normal bowel sounds, soft. Absent: distended, tenderness Additional comments: Colostomy noted to the left abdomen with no stool noted in the collection bag. Willis catheter noted to be draining dark, bloody urine. - Extremities Exam Extremities exam: Absent: normal inspection (Muscle atrophy noted to the BLE and BUE), pedal edema Additional comments: BLE dressings C/D/I. - Neurological Exam Neurological exam: Present: altered (Opens eyes, follows commands, but difficult to understand due to low voice and garbled speech.). Absent: no focal deficits (Paralysis noted to the BLE) - Skin Skin exam: Present: dry, intact, normal color, warm - Additional findings Additional findings: PICC line noted to the RUE with transparent dressing C/D/I. No erythema, warmth, tenderness, or drainage noted. Consult Discharge Plan - Plan Referrals: Brock Lyle MD [Non-Partnered Physician] - 12/29/18 8:00 am (IN [facility]) NONE,PCP [Primary Care Provider] - (Patient is from [facility])
--- NOTE | 2018-12-14 14:53 | Podiatry Progress Note ---
Date of Encounter: 12/14/18 Time of Encounter: 14:30 - Assessment and Plan (1) Decubitus ulcer of left leg, unstageable Current Visit: Yes Status: Acute Assessment: Pressure ulcer of left tibia measuring 9 x 3 x 0.5 cm. Eschar noted to wound bed, no fluctuance noted. Foul odor noted. Surrounding tissue erythematous, no streaking noted. Blood culture pending Blood glucose 110s today WBC 12.9 Xray of tib/fib concerning for OM MRI of LLE showed left tibial diaphysis and left lateral malleolus OM ID managing ATB-appreciate recommendations Plan: Continue BID dressing changes to LLE. Recommend tight glycemic control to promote wound healing. Recommend palliative consult d/t extensive OM and decision making regarding surgery vs palliative/hospice care Recommend LLE amputation, patient in the past has been reluctant for surgery. If patient alert/oriented and agreeable to surgery, recommend [facility] transfer d/t extensive OM and possible need for plastic surgery per previous ID recommendations (2) Pressure ulcer of right heel, stage 3 Current Visit: Yes Status: Chronic Assessment: Stage 3 pressure ulcer of right calcaneous Wound bed pink in color with slough noted. Edges rolled. Surrounding tissue pink in color. Warm to touch. No edema, no erythema, no streaking, no foul odor. Does not probe to bone, no tunneling, no undermining noted. CFT <3 seconds No active drainage noted Xray returned acute OM of right heel. ID currently managing ATB-appreciate recommendations Plan: Recommend palliative consultation for surgical vs conservative treatment options. Recommend amputation of right calcaneous, if agreeable to surgery recommend transfer to [facility]. Continue twice daily dressing changes. Nursing to change. Continue ATB Heel medix boots ordered. Please keep feet elevated while in bed at all times. (3) Pressure ulcer of left ankle, stage 3 Current Visit: Yes Status: Chronic Assessment: Stage 3 pressure ulcer to left lateral malleolus Yellow/brown drainage noted. Wound culture returned psuedomonas MDRO. ID managing ATB- appreciate recommendations Wound bed pink in color, no undermining noted, no tunneling noted Surrounding tissue erythematous, no streaking noted, no foul odor noted Xray negative MRI showed OM of left lateral malleolus Plan: Recommend amputation of LLE, previously reluctant in past to have any surgical intervention. If patient agreeable to surgery, recommend transfer to [facility] for extensive OM. Recommend palliative consult. Continue twice daily wound care. Continue ATB Heel medix boots ordered to offload pressure. Subjective Interval history: Patient awake in bed. Patient alert, oriented to place and person. Patient does not follow appropriate conversation. Unable to understand patient at times d/t mumbled speech. Objective - Vital Signs Vital Signs: Vital Signs Temp Pulse Resp BP Pulse Ox 12/14/18 11:45 96.6 F L 88 17 94/54 94 12/14/18 06:45 98.4 F 113 18 90/54 94 12/14/18 05:24 96.7 F L 112 14 85/54 94 12/14/18 05:11 96.7 F L 112 14 77/54 94 12/14/18 02:05 97.8 F 119 15 95/61 94 12/13/18 20:50 98 12/13/18 19:56 98.0 F 123 16 120/76 98 12/13/18 19:46 98.0 F 102 16 124/82 93 12/13/18 19:45 16 95 12/13/18 15:47 97.6 F 92 16 143/83 99 Intake and Output 12/13/18 12/14/18 12/14/18 23:59 07:59 15:59 Intake Total 400 / 400 100 / 100 1304 / 1304 Output Total 150 / 150 325 / 325 Balance 250 / 250 -225 / -225 1304 / 1304 Intake: IV Fluids 200 / 200 100 / 100 1304 / 1304 0.9 % Sodium Chloride 1,000 ML 1000 / 1000 @ 999 mls/hr IVC .Q1H1M ONE Rx# :[id number] Doxycycline 100 MG In 0.9 % 0 / 0 Sodium Chloride (Mini-Bag +) 100 ML @ 100 mls/hr IVPB Q12HR [facility] Rx#:[id number] Diflucan Premix 200 MG/100 ML 100 / 100 100 / 100 200 mg In 100 ml @ 100 mls/hr IVPB DAILY [facility] Rx#:[id number] Magnesium Sulfate 2 GM In 0.9 % 104 / 104 Sodium Chloride 100 ML @ 52 mls/hr IVPB ONCE ONE Rx#: [id number] Zosyn 3.375 GM In 0.9 % Sodium 100 / 100 100 / 100 100 / 100 Chloride (Mini-Bag +) 100 ML @ 25 mls/hr IVPB Q8HR [facility] Rx#: [id number] Oral 200 / 200 0 / 0 0 / 0 Output: Catheter 150 / 150 325 / 325 Other: Weight 77.2 kg Patient Weight 12/14/18 23:59 Weight 77.2 kg - Exam Exam: Constitiutional: Alert and oriented to person and place. Inappropriate Poor historian. Cachectic Vascular: 1/4 DP/PT bilaterally, CFT <3 sec to all digits, warm to warm from tibia to toes bilaterally, no calf pain with squeeze bilaterally Neurologic: Absent sensation to touch, normal plantar response, abnormal position sense dorsiflexion/plantar flexion Dermatologic: Pressure ulcer stage 3 noted to right calcaneous wound bed pink with rolled edges, slough noted to edge of wound, pressure ulcer stage 3 noted to left lateral malleolus with yellow/brown drainage, does not probe to bone, no undermining or tunneling noted, pressure ulcer unstageable with eschar noted to left tibia measuring 9 x 3. Musculoskeletal: 2/5 muscle strength. Muscle atrophy noted to bilateral lower extremities - Lab Result Diagrams: 12/14/18 03:36 12/14/18 03:36 Labs: Abnormal lab results WBC 12.9 K/mcL (4.3-11.1) H D 12/14/18 03:36 RBC 3.34 M/mcL (4.19-5.50) L 12/14/18 03:36 Hgb 7.9 g/dL (12.9-16.9) L 12/14/18 03:36 Hct 26.9 % (37.5-50.1) L 12/14/18 03:36 MCV 80.5 fL (83.0-100.0) L 12/14/18 03:36 MCH 23.7 pg (28.0-33.3) L 12/14/18 03:36 MCHC 29.4 g/dL (31.6-35.5) L 12/14/18 03:36 RDW 17.2 % (11.5-14.5) H 12/14/18 03:36 Neutrophils # 9.8 K/mcL (1.6-8.9) H 12/14/18 03:36 ESR >= 130 mm/hr (0-10) H 12/11/18 05:30 PT 14.0 Seconds (9.4-12.1) H 12/14/18 07:16 Glucose 118 mg/dL (70-105) H 12/14/18 03:36 Magnesium 1.3 mg/dL (1.6-2.6) L 12/14/18 03:36 AST 9 Units/L (13-39) L 12/09/18 20:27 C-Reactive Protein 96 mg/L (Less than 10) H 12/11/18 05:30 Albumin 2.9 g/dL (3.5-5.7) L 12/09/18 20:27 Globulin 3.8 g/dL (2.4-3.5) H 12/09/18 20:27 Albumin/Globulin Ratio 0.8 (1.1-2.2) L 12/09/18 20:27 Ur Specimen Adequacy See below A 12/09/18 22:01 Urine Clarity Cloudy (Clear) A 12/09/18 22:01 Urine Protein 30 mg/dL (Neg-Trace) H 12/09/18 22:01 Urine Blood Large (Negative) H 12/09/18 22:01 Ur Leukocyte Esterase Large (Negative) H 12/09/18 22:01 Urine Microscopic WBC 15-30 per hpf (0-3) H 12/09/18 22:01 Urine Yeast Moderate per hpf (None Seen) H 12/09/18 22:01 Ur Culture Indicated? YES (NO) A 12/09/18 22:01 Microbiology, Last 48 Hours 12/11/18 18:25 Wound Culture - Preliminary Left Ankle P. aeruginosa MDRO 12/09/18 22:01 Urine Culture - Preliminary Urine,[place] Yeast Species Acinetobacter baumannii MDRO 12/14/18 07:16 Blood Culture - Preliminary Peripheral Venipuncture Culture is incubating and being continuously monitored for growth. Final report to follow. 12/14/18 07:16 Blood Culture - Preliminary Peripheral Venipuncture Culture is incubating and being continuously monitored for growth. Final report to follow. 12/10/18 11:43 Wound Culture - Final Buttock Klebsiella pneumoniae ESBL Providencia stuartii Consult Discharge Plan - Plan Referrals: Brock Lyle MD [Non-Partnered Physician] - 12/29/18 8:00 am (IN [facility]) NONE,PCP [Primary Care Provider] - (Patient is from [facility])
[2018-12-14] MEDS: *HR* OxyCODONE/APAP 5/325 TABLET PO PRN ×2 (15:46→21:44)
[2018-12-14] MEDS: OLANZapine 10 MG TAB.RAPDIS PO SCH (19:00)
[2018-12-14] MEDS: Melatonin 3 MG TABLET PO SCH (21:44)
[2018-12-14] MEDS: Gentamicin Oint 15 GM TUBE TP SCH (22:04)
[2018-12-15] MEDS: Colistin (Colistimethate) 100 MG in 0.9 % Sodium Chloride 50 ML IVPB SCH ×2 (02:11→14:53)
[2018-12-15 06:37] LABS: Magnesium 1.5 mg/dL (1.6-2.6)
[2018-12-15 06:50] LABS: Basophils % 0.1 %
[2018-12-15 06:51] LABS: Eosinophils # 0.1 K/mcL (0.0-0.6); Eosinophils % 1.4 %; Hematocrit 24.9 % (37.5-50.1); Hemoglobin 7.1 g/dL (12.9-16.9); Immature Granulocytes % 0.4 % (0-4); Lymphocytes # 1.2 K/mcL (0.6-4.6); Lymphocytes % 17.1 %; Mean Corpuscular HGB Conc 28.5 g/dL (31.6-35.5); Mean Corpuscular Hemoglobin 23.6 pg (28.0-33.3); Mean Corpuscular Volume 82.7 fL (83.0-100.0); Mean Platelet Volume 9.3 fL (9.4-12.4); Monocytes # 0.5 K/mcL (0.0-1.3); Neutrophils # 5.2 K/mcL (1.6-8.9); Platelet Count 107 K/mcL (140-400); Red Blood Count 3.01 M/mcL (4.19-5.50); Red Cell Distribution Width 17.7 % (11.5-14.5)
[2018-12-15 07:00] LABS: BUN/Creatinine Ratio 18 (6-26); Blood Urea Nitrogen 13 mg/dL (6-20); Calcium 9.5 mg/dL (8.6-10.3); Carbon Dioxide 27 mEq/L (23-29); Chloride 108 mEq/L (98-107); Glucose 78 mg/dL (70-105); Osmolality,Calculated 293 (280-300); Potassium 4.1 mEq/L (3.5-5.1); Sodium 142 mEq/L (136-145); eGFR For Non-African Americans > 60 (> 60)
[2018-12-15 07:21] LABS: Anisocytosis 1+ (Not Present); Hypochromasia Present (Not Present); Platelet Estimate Slight Decrease (Normal)
--- NOTE | 2018-12-15 09:03 | Internal Med Progress Note ---
Hospitalist Progress Note - Encounter Date of Encounter: 12/15/18 - Subjective Interval History: Patient seen and examined at bedside this morning. He is lying in bed upon my arrival sleeping. He arouses to voice and stimulation however he is slow to arouse and quickly falls asleep. His speech is not garbled today but is very soft. - Exam Vitals: Temp Pulse Resp BP Pulse Ox 99.6 F 105 18 98/61 92 12/15/18 07:33 12/15/18 07:33 12/15/18 07:33 12/15/18 07:33 12/15/18 07:33 Exam: General: alert and oriented, frail, chronically ill-appearing, NAD, arouses to voice and rubbing his arm HEENT: NC/AT, PERRLA, EOMI, mucous membranes dry Cardio: tachycardic w/o MRG, pulses 2+ Respiratory: CTAB, no cyanosis or clubbing Abd: soft, non-tender, no guarding or rigidity, bs present. Stoma left lower abdomen with no output in ostomy, Mccallum catheter in place with dark urine in bag, no blood Extremities: non-tender, no edema, pulses 2+, PICC in place right UE Skin: warm, dry, multiple wounds that are currently dressed on his bilateral legs, and sacrum. He has heelmedix boots on b/l. Neuro: soft speech that is not garbled, does not stay awake to follow further commands, paraplegia, unable to cooperate with further neuro exam - Assessment and Plan (1) Sepsis Current Visit: No Status: Resolved Assessment and Plan: Secondary to acute UTI, osteomyelitis. PNA. Wound culture from left ankle growing Pseudomonas MDRO. Sacral wound growing Klebsiella and Providencia. Urine culture growing Acinetobacter and yeast BP and HR improving after IVF afebrile, WBC 7.0, lactic acid 0.7 ID has been consulted, appreciate their recommendations. Plan: - Continue Colistimethate IV Q12hr -Continue to monitor pt status closely (2) Sacral decubitus ulcer Current Visit: Yes Status: Chronic Assessment and Plan: Patient has chronic stage 4 sacral decubitus ulcer with osteomyelitis, completed course [facility] 10[facility]14 x6 weeks He presented after 2 days of fever with multiple sources for infection including indwelling mccallum, PICC and numerous pressure ulcers and wounds Decubitus ulcer on sacrum demonstrates purulent drainage Wound culture growing gram Kelbsiella pneumoniae ESBL and Providencia stuartii, both sensitive to zosyn. Blood cultures obtained including PICC sample, results pending Nasal MRSA swab negative ID, general surgery and wound care have been consulted, appreciate their recommendations on wound management. Overall poor prognosis and healing ability of the ulcers given patient's reluctance to undergo plastic surgery. BS have been well controlled. Plan: -Continue wound care per General Surgery -Continue antibiotics per ID recs--colistimethate IV 12hr -Continue with pain control as ordered -Tight glycemic control to promote wound healing. (3) Osteomyelitis Current Visit: No Status: Chronic Assessment and Plan: Left lateral malleolus and left tibia Wound culture currently growing MDR p. aeruginosa Podiatry and ID following, appreciate their recommendations. ID has requested susceptibilities of Avycaz, Zosyn, and Colistin to be run on the culture as a send out lab Plan: -Continue IV colistin per ID, awaiting sensitivities -Continue wound care per podiatry and wound care team. (4) Complicated UTI (urinary tract infection) Current Visit: Yes Status: Acute Assessment and Plan: Recurrent UTI from chronic dwelling mccallum Previous urine cultures 10/14/2018: Klebsiella pneumoniae S: Carbapnem and zosyn (otherwise fatima resistant) and Proteus mirabilis S: Ertapenem, imipenem and Zosyn (otherwise fatima resistant). Culture growing Acinetobacter baumannii MDRO sensitive only to TMP/SMX and yeast. Pt evaluated by Urology and mccallum marly been changed. Per their recs, should f/u outpt for consideration of suprapubic catheter placement. No current hematuria Plan: -Contact precautions -Mccallum in place, continue to monitor -Will follow with ID recommendations for treatment (5) Osteomyelitis of sacrum Current Visit: Yes Status: Chronic Assessment and Plan: Continue local wound care. Surgery recommendations appreciated. (6) Decubitus ulcer of left leg, unstageable Current Visit: Yes Status: Acute Assessment and Plan: Pressure ulcer of left tibia measuring 9 x 3 cm. Podiatry noted eschar to wound bed, no fluctuance noted. Foul odor noted. Surrounding tissue erythematous, no streaking noted. XR demonstrated findings concerning for possible osteomyelitis along the mid left tibia medial diaphysis. MRI Left LE: Broad ulceration with moderate surrounding cellulitis along theanteromedial aspect of the left leg with exposure of the subjacent mid tibial diaphyseal cortex and subjacent cortical destruction as well as osteomyelitis of the mid left tibial diaphysis. Ulcer at the lateral aspect of the left ankle with subjacent osteomyelitis at the lateral malleolus. Moderate diffuse infectious myositis of the musculature of the left lower leg. Plan: -Continue abx recs by ID -Wound management per podiatry (7) Pressure ulcer of right heel, unstageable Current Visit: Yes Status: Acute Assessment and Plan: wound care per wound team plan: -continue heelmedix boots -frequent turns (8) Pressure ulcer of left ankle, stage 3 Current Visit: Yes Status: Chronic Assessment and Plan: Continue care per wound team, frequent turns, heel medix boots (9) Paraplegia Current Visit: Yes Status: Chronic Assessment and Plan: Continue supportive are, frequent turns, fall precautions, pain control (10) COPD (chronic obstructive pulmonary disease) Current Visit: Yes Status: Chronic Assessment and Plan: Not currently in exacerbation Plan: -Continue home meds. (11) Mood disorder Current Visit: Yes Status: Chronic Assessment and Plan: Continue BuSpar, nortriptyline and Zyprexa (12) Hepatitis C Current Visit: Yes Status: Chronic (13) Tobacco use Current Visit: Yes Status: Chronic Assessment and Plan: Encourage cessation (14) Hematuria Current Visit: Yes Status: Acute Assessment and Plan: Hematuria and blood clots and Mccallum following traumatic event of patient pulling on Mccallum. Urology has evaluated the patient and has replaced the Mccallum. No current hematuria noted. Plan: -Continue to monitor (15) Pneumonia Current Visit: No Status: Suspected Assessment and Plan: CT of the chest shows pneumonia. DVT Prophylaxis: on hold secondary to hematuria and diffuse LE pressure ulcers - Time Spent with Patient Total time spent is greater than 50% in coordination of care (as documented) at patient's floor/unit and/or counseling patient: Internal Medicine: Result - Labs CBC & Chem 7: 12/15/18 05:51 12/15/18 05:51 Labs: Short CBC 12/15/18 Range/Units 05:51 WBC 7.0 (4.3-11.1) K/mcL Hgb 7.1 L (12.9-16.9) g/dL Hct 24.9 L (37.5-50.1) % Plt Count 107 L (140-400) K/mcL Neutrophils # 5.2 (1.6-8.9) K/mcL BMP 12/15/18 05:51 Sodium 142 Potassium 4.1 Chloride 108 H Carbon Dioxide 27 BUN 13 Creatinine 0.74 Glucose 78 Calcium 9.5 - ABG Interpretation ABG results: PT/INR, D-dimer PT 14.0 Seconds (9.4-12.1) H 12/14/18 07:16 - Impressions Impressions Head CT 12/14/18 09:19 IMPRESSION: Chronic microvascular disease without acute intracranial abnormality. D/ / Waldo Mccabe / Waldo Mccabe Interpreting Provider: Waldo Mccabe Chest CT 12/14/18 14:31 IMPRESSION: Patchy right upper lobe and bilateral lower lobe, right greater than left, airspace disease most compatible with pneumonia. There is frothy material within the central bronchi extending into lower lung branches, possibly mucous secretions. Aspiration could be considered as well. D/ / Lynda Valentino Cha, MD / Lynda Valentino Cha, MD Interpreting Provider: Lynda Valentino Cha, MD Consult Discharge Plan - Plan Referrals: Brock Lyle MD [Non-Partnered Physician] - 12/29/18 8:00 am (IN [facility]) NONE,PCP [Primary Care Provider] - (Patient is from [facility]) __ (1) Sepsis Qualifiers: Sepsis type: sepsis due to unspecified organism Qualified Code(s): A41.9 - Sepsis, unspecified organism (2) Sacral decubitus ulcer Qualifiers: Pressure injury stage: stage 4 Qualified Code(s): L89.154 - Pressure ulcer of sacral region, stage 4 (3) Osteomyelitis Qualifiers: Osteomyelitis type: other Osteomyelitis location: multiple sites Qualified Code(s): M86.8X0 - Other osteomyelitis, multiple sites (10) COPD (chronic obstructive pulmonary disease) Qualifiers: COPD type: chronic bronchitis Chronic bronchitis type: simple Qualified Code(s): J41.0 - Simple chronic bronchitis (12) Hepatitis C Qualifiers: Viral hepatitis chronicity: chronic Hepatic coma status: without hepatic coma Qualified Code(s): B18.2 - Chronic viral hepatitis C (15) Pneumonia Qualifiers: Pneumonia type: due to unspecified organism Laterality: right Lung location: unspecified part of lung Qualified Code(s): J18.9 - Pneumonia, unspecified organism
--- NOTE | 2018-12-15 10:16 | Infectious Disease Progress No ---
Date of Encounter: 12/15/18 Time of Encounter: 09:30 - Assessment and Plan (1) Sepsis Current Visit: No Status: Resolved The patient had four SIRS criteria including hypothermia, tachycardia, tachypnea, and leukocytosis with hypotension. Likely secondary to complicated UTI and osteomyelitis. He has a RUE PICC line that does not appear infected. WBC has normalized. Continues to have tachycardia. Hypothermia has resolved. Blood cultures drawn 12/09/18 peripherally are negative x 2 sets. Repeat blood culture drawn 12/10/18 from PICC line is NGTD x 1 set. Repeat peripheral blood cultures drawn 12/14/18 are pending x 2 sets. Recommendations. Consider transfer to higher level of care and tertiary care center for closer monitoring and further workup/treatment/surgery. Discussed with Dr. Mcgill of the primary team. Send MDR Acinetobacter for colistin susceptibilities and MDR Pseudomonas for Zosyn, colistin, and Avycaz susceptibilities.--> pending. At this point, we are very limited in antibiotic options to treat the patient's wound infections. He has two MDROs which make this a very challenging case. Will have started Colistin in attempts to treat these organisms. The patient is at high risk for renal injury so we will have to be cautious in dosing the medication so I have asked pharmacy to assist with this. He will require close renal monitoring. Start flagyl 500mg IV TID. If the patient continues to decline, consider starting Vancomycin. Consider blood transfusion since his Hgb is 7.1 this morning. Per the primary team. Duration of treatment depends on the clinical picture. Monitor renal function and dose-adjust antibiotics. Sacral wound dressing changes per the wound care team's recommendations. Foot wound dressings per the Podiatry team. Contact precautions per the hospital protocol. Overall prognosis guarded. Qualifiers: Sepsis type: sepsis due to unspecified organism Qualified Code(s): A41.9 - Sepsis, unspecified organism (2) Complicated UTI (urinary tract infection) Current Visit: Yes Status: Acute Causative organism: MDRO A. baummannii. Yeast species noted in the urine, but not likely contributing to the patient's clinical picture. Willis catheter replaced after patient pulled it out. Urology consulted. Currently on Colistin. (3) Osteomyelitis Current Visit: No Status: Chronic Location: Left lateral malleolus and left tibia. Causative organism: MDR PSEA. Zosyn, avycaz, and colistin susceptibilities are pending. Likely secondary to chronic non-healing ulcers, worsened by the patient's poor nutritional status. Podiatry consulted and following. Recommends amputation and transfer to tertiary care center. Currently on IV Colistin. Qualifiers: Osteomyelitis type: other Osteomyelitis location: multiple sites Qualified Code(s): M86.8X0 - Other osteomyelitis, multiple sites (4) Pneumonia Current Visit: No Status: Suspected CXR shows mild right basilar opacity, atelectasis is favored over PNA. CT chest concerning for bilateral PNA and aspiration. The patient has a productive cough with brown sputum and is clinically worsened since admission. MRSA screen negative on admission. Send S. pneumo and Legionella UATs. Send sputum for culture. Check RIP. Currently on Colistin. Will add IV Flagyl to cover aspiration. Consider adding Vancomycin if patient continues to decline, but will hold off for now since her MRSA screen was negative and he is already at high risk for HECTOR due to the Colistin. 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 (6) Osteomyelitis of coccyx Current Visit: No Status: Acute Causative organism not clear. No cultures were ever obtained but based on urine culture we decided to treat previously with ertapenem Received ertapenem IV (10/14/2018 - 12/03/2018) CT pelvis 12/10/2018: Sacrococcygeal chronic osteomyelitis associated with decubitus ulcer, seen previously. No abscess or fluid collection visualized. Chronic CT findings are expected in patient with chronic osteomyelitis that just finished treatment one week prior to admission Based on the left findings and inflammatory markers, consider a bone biopsy and send biopsy for cultures including routine, aerobic, anaerobic, fungal and AFB, although I am not sure how yielding it will be at this point since the patient has been on IV antibiotics for several days. Wound culture on admission is positive for ESBL K. pneumoniae and P. stuartii. Currently on IV Colistin. (7) Paraplegia Current Visit: Yes Status: Chronic (8) Tobacco use Current Visit: Yes Status: Chronic (9) Hepatitis C Current Visit: Yes Status: Chronic Qualifiers: Viral hepatitis chronicity: chronic Hepatic coma status: without hepatic coma Qualified Code(s): B18.2 - Chronic viral hepatitis C (10) Anemia Current Visit: Yes Status: Chronic Hgb down to 7.1 this morning. The patient is pale and diaphoretic. Consider PRBC transfution. Discussed with the primary team. Further workup and management per the primary team. Qualifiers: Anemia type: unspecified type Qualified Code(s): D64.9 - Anemia, unspecified - Subjective Interval history: Patient seen and examined with Dr. Biswas. No acute events noted overnight. Patient is tachycardic and lethargic this morning. He is hallucinating. Unable to provide ROS information. CT chest concerning for PNA and aspiration. MRI positive for OM of the tibia and lateral malleolus. CT head was negative. Blood cultures are negative x 3 sets. Podiatry has recommended transfer to higher level of care due to extent of OM. Infect Dis PN-Objective Data - Labs CBC & Chem 7: 12/15/18 05:51 12/15/18 05:51 Labs: Laboratory Results - last 24 hr 12/15/18 12/15/18 05:51 05:51 WBC 7.0 RBC 3.01 L Hgb 7.1 L Hct 24.9 L MCV 82.7 L MCH 23.6 L MCHC 28.5 L RDW 17.7 H Plt Count 107 L MPV 9.3 L Immature Gran % 0.4 Seg Neutrophils % 74.0 Lymphocytes % 17.1 Monocytes % 7.0 Eosinophils % 1.4 Basophils % 0.1 Neutrophils # 5.2 Lymphocytes # 1.2 Monocytes # 0.5 Eosinophils # 0.1 Basophils # 0.0 Platelet Estimate Slight Decrease L Hypochromasia Present A Anisocytosis 1+ A Sodium 142 Potassium 4.1 Chloride 108 H Carbon Dioxide 27 BUN 13 Creatinine 0.74 Est GFR ( Amer) > 60 Est GFR (Non-Af Amer) > 60 BUN/Creatinine Ratio 18 Glucose 78 Calculated Osmolality 293 Calcium 9.5 Magnesium 1.5 L Cultures: Cultures 12/10/18 08:34 Blood Culture - Final Peripheral Central Cath, Picc No growth. Final report. 12/09/18 20:27 Blood Culture - Final Peripheral Venipuncture No growth. Final report. 12/09/18 20:27 Blood Culture - Final Peripheral Venipuncture No growth. Final report. 12/11/18 18:25 Wound Culture - Preliminary Left Ankle P. aeruginosa MDRO 12/09/18 22:01 Urine Culture - Preliminary Urine,[place] Yeast Species Acinetobacter baumannii MDRO 12/14/18 07:16 Blood Culture - Preliminary Peripheral Venipuncture Culture is incubating and being continuously monitored for growth. Final report to follow. 12/14/18 07:16 Blood Culture - Preliminary Peripheral Venipuncture Culture is incubating and being continuously monitored for growth. Final report to follow. 12/10/18 11:43 Wound Culture - Final Buttock Klebsiella pneumoniae ESBL Providencia stuartii Serology 12/11/18 12/09/18 Range/Units 05:07 22:01 Ur Specimen Adequacy See below A Urine Color Yellow (Yellow) Urine Clarity Cloudy A (Clear) Urine pH 5.5 (5.0-8.0) pH Units Ur Specific [place] 1.020 (1.010-1.025) Urine Protein 30 H (Neg-Trace) mg/dL Urine Glucose (UA) Normal (Normal) mg/dL Urine Ketones Negative (Negative) mg/dL Urine Blood Large H (Negative) Urine Nitrite Negative (Negative) Urine Bilirubin Negative (Negative) Urine Urobilinogen Normal (Normal) mg/dL Ur Leukocyte Esterase Large H (Negative) Urine Microscopic RBC 0-3 (0-3) per hpf Urine Microscopic WBC 15-30 H (0-3) per hpf Urine Bacteria Few (None-Few) per hpf Urine Mucus Few (Few) Urine Yeast Moderate H (None Seen) per hpf Ur Culture Indicated? YES A (NO) Nasal Screen MRSA (PCR) Negative (Negative) - Impressions Impressions Chest X-Ray 12/14/18 06:35 IMPRESSION: Mild right basilar opacity, atelectasis favored over pneumonia. Rotation limits the exam. Consider radiographic follow-up. D/ / 12/14/2018 08:06:52 Luis Sanford MD / ayad Interpreting Provider: Luis Sanford MD Head CT 12/14/18 09:19 IMPRESSION: Chronic microvascular disease without acute intracranial abnormality. D/ / Waldo Mccabe / Waldo Mccabe Interpreting Provider: Waldo Mccabe Chest CT 12/14/18 14:31 IMPRESSION: Patchy right upper lobe and bilateral lower lobe, right greater than left, airspace disease most compatible with pneumonia. There is frothy material within the central bronchi extending into lower lung branches, possibly mucous secretions. Aspiration could be considered as well. D/ / Lynda Valentino Cha, MD / Lynda Valentino Cha, MD Interpreting Provider: Lynda Valentino Cha, MD Exam - Constitutional Vitals: Temp Pulse Resp BP Pulse Ox 99.6 F 105 18 98/61 92 12/15/18 07:33 12/15/18 07:33 12/15/18 07:33 12/15/18 07:33 12/15/18 07:33 General appearance: cooperative, no acute distress, thin - Head Head exam: Present: atraumatic, normal inspection, normocephalic - Eye Eye exam: Present: normal appearance, PERRL Pupils: Present: normal accommodation - ENT ENT exam: Present: mucous membranes dry - Neck Neck exam: Present: normal inspection - Respiratory Respiratory exam: Present: rhonchi (throughout). Absent: rales, respiratory distress, wheezes - Cardiovascular Cardiovascular exam: Present: +S1, +S2, tachycardia. Absent: irregular rhythm - GI/Abdominal GI/Abdominal exam: Present: normal bowel sounds, soft. Absent: distended, tenderness Additional comments: Colostomy noted to the left abdomen with soft brown stool noted. - Extremities Exam Extremities exam: Absent: normal inspection (Muscle wasting noted to the BLE and BUE.), pedal edema Additional comments: Dressings to the BLE are C/D/I. - Neurological Exam Neurological exam: Present: altered (Awake, follows commands, visual hallucinations. Oriented to name only.) - Skin Skin exam: Present: dry, intact, pallor, warm - Additional findings Additional findings: PICC line noted to the RUE with transparent dressing C/D/I. No erythema, warmth, tenderness, or drainage noted. Consult Discharge Plan - Plan Referrals: Brock Lyle MD [Non-Partnered Physician] - 12/29/18 8:00 am (IN [facility]) NONE,PCP [Primary Care Provider] - (Patient is from [facility])
--- NOTE | 2018-12-15 10:38 | Urology Progress Note ---
Date of Encounter: 12/15/18 Time of Encounter: 10:10 - Assessment and Plan (1) Complicated UTI (urinary tract infection) Current Visit: Yes Status: Acute Assessment and plan: Patient is a 53-year old male who presents with chronic indwelling mccallum and MRDO Acinetobacter UTI. VSS. Afebrile with temp 99.6. Patient receiving Coli stin. Patient being considered for transfer per ID recommendation. Appreciate ID support. (2) Gross hematuria Current Visit: No Status: Inactive Assessment and plan: Patient is a 53-year old male who presents with a history of gross hematuria. Hematuria is resolved. Catheter was repositioned to patient's bladder and is draining well. Urology will reevaluate if any concern for poor drainage or h ematuria recurrence. Progress Note Narrative: Patient seen and examined sitting upright in bed in no apparent distress. Mccallum catheter is indwelling and draining transparent dark yellow urine into bedside bag. No hematuria, sediment or clots observed. Nurse at bedside and states he is being considered for transfer to [facility]. Objective Initial Vital Signs Temp Pulse Resp BP Pulse Ox 99.5 F 120 18 122/77 98 12/09/18 19:33 12/09/18 19:33 12/09/18 19:33 12/09/18 19:33 12/09/18 19:33 - General physical appearance Present: no distress, chronically ill - Respiratory Present: normal expansion, normal respiratory effort - Genitourinary Present: normal penis with no external lesions Urine Appearance: Present: Clear - Integumentary Present: no rash, no abnormal pigmentation - Musculoskeletal Present: other (contracted bilateral lower extremities ) - Labs 12/15/18 05:51 12/15/18 05:51 Diabetes panel 12/15/18 Range/Units 05:51 Sodium 142 (136-145) mEq/L Potassium 4.1 (3.5-5.1) mEq/L Chloride 108 H (98-107) mEq/L Carbon Dioxide 27 (23-29) mEq/L BUN 13 (6-20) mg/dL Creatinine 0.74 (0.70-1.30) mg/dL Glucose 78 (70-105) mg/dL Calcium 9.5 (8.6-10.3) mg/dL Calcium panel 12/15/18 Range/Units 05:51 Calcium 9.5 (8.6-10.3) mg/dL Pituitary panel 12/15/18 Range/Units 05:51 Sodium 142 (136-145) mEq/L Potassium 4.1 (3.5-5.1) mEq/L Chloride 108 H (98-107) mEq/L Carbon Dioxide 27 (23-29) mEq/L BUN 13 (6-20) mg/dL Creatinine 0.74 (0.70-1.30) mg/dL Glucose 78 (70-105) mg/dL Calcium 9.5 (8.6-10.3) mg/dL Adrenal panel 12/15/18 Range/Units 05:51 Sodium 142 (136-145) mEq/L Potassium 4.1 (3.5-5.1) mEq/L Chloride 108 H (98-107) mEq/L Carbon Dioxide 27 (23-29) mEq/L BUN 13 (6-20) mg/dL Creatinine 0.74 (0.70-1.30) mg/dL Glucose 78 (70-105) mg/dL Calcium 9.5 (8.6-10.3) mg/dL Consult Discharge Plan - Plan Referrals: Brock Lyle MD [Non-Partnered Physician] - 12/29/18 8:00 am (IN [facility]) NONE,PCP [Primary Care Provider] - (Patient is from [facility])
--- NOTE | 2018-12-15 11:07 | Discharge Summary ---
<Griffin Biswas - Last Filed: 12/15/18 12:48> Orders not resulted at time of discharge: Pending orders 12/09/18 22:01 Culture,Urine [RM] Stat 12/11/18 18:25 Culture,Wound [RM] Routine 12/14/18 07:16 Culture,Blood [BC] Stat 12/15/18 10:58 Culture,Sputum with Gram Stain [RM] Routine Legionella Antigen [RM] Routine S. Pneumoniae Antigen [RM] Routine 12/15/18 11:31 Red Blood Cells [BBK] Stat Type and Screen [BBK] Stat 12/15/18 12:20 Respiratory Infection Panel [MOLMIC] Routine Date of Encounter: 12/15/18 Time of Encounter: 12:48 - Discharge Diagnosis (1) COPD (chronic obstructive pulmonary disease) Status: Chronic Qualifiers: COPD type: chronic bronchitis Chronic bronchitis type: simple Qualified Code(s): J41.0 - Simple chronic bronchitis (2) Sepsis Status: Resolved Qualifiers: Sepsis type: sepsis due to unspecified organism Qualified Code(s): A41.9 - Sepsis, unspecified organism (3) Hepatitis C Status: Chronic Qualifiers: Viral hepatitis chronicity: chronic Hepatic coma status: without hepatic coma Qualified Code(s): B18.2 - Chronic viral hepatitis C (4) Mood disorder Status: Chronic (5) Pressure ulcer of right heel, unstageable Status: Acute (6) Osteomyelitis of sacrum Status: Chronic (7) Paraplegia Status: Chronic (8) Complicated UTI (urinary tract infection) Status: Acute (9) Sacral decubitus ulcer Status: Chronic Qualifiers: Pressure injury stage: stage 4 Qualified Code(s): L89.154 - Pressure ulcer of sacral region, stage 4 (10) Decubitus ulcer of left leg, unstageable Status: Acute (11) Hematuria Status: Acute (12) Acute encephalopathy Status: Acute Hospital course: Mr. Carrasco is a 53 year old male Discharge discussed with: patient, family, advisor consultant - Time Spent with Patient Total time spent providing and/or coordinating discharge services: Less than 30 minutes (10 min) - Discharge Medications Home Medications: Albuterol Neb [Proventil Neb] 2.5 mg IH Q6H PRN 07/01/18 [History] Baclofen [Lioresal] 10 mg PO TID 07/01/18 [History] Famotidine [Heartburn Prevention] 20 mg PO Q12H 07/01/18 [History] Gabapentin [Neurontin] 600 mg PO TID 07/01/18 [History] Nortriptyline [Pamelor] 25 mg PO HS 07/01/18 [History] Ascorbic Acid [Vitamin C] 500 mg PO BID 07/28/18 [History] Budesonide/Formoterol 80/4.5 [Symbicort 80/4.5] 2 puff IH BID 07/28/18 [History] Lactulose [Enulose] 20 gm PO TIDWM 07/28/18 [History] Lidocaine [Aspercreme] 1 patch TP DAILY 07/28/18 [History] Melatonin [Melatin] 3 mg PO HS 07/28/18 [History] Multivitamin [Multivitamins] 1 tab PO DAILY 07/28/18 [History] OLANZapine [Zyprexa] 10 mg PO QPM 07/28/18 [History] Zinc Sulfate 220 mg PO BID 07/28/18 [History] Acetaminophen [Tylenol] 650 mg PO Q8H PRN 08/04/18 [History] Amino Acids/Protein Hydrolys [Pro-Stat Awc Liquid] 30 ml PO BID 09/09/18 [Histor y] Buspirone HCl [Buspar] 5 mg PO TID 09/09/18 [History] Valproic Acid [Depakene] 500 mg PO Q8H 09/18/18 [History] Tramadol HCl [Ultram] 50 mg PO Q8H PRN 10 Days #30 tablet 10/19/18 [Rx] Ferrous Sulfate 325 mg PO BID 12/11/18 [History] Magnesium Oxide [Magnesium] 400 mg PO DAILY 12/11/18 [History] Iron Polysaccharide Complex [Ferrex 150] 150 mg PO DAILY capsule 12/15/18 [Rx] Allergies/Adverse Reactions: Allergy/AdvReac Type Severity Reaction Status Date / Time No Known Allergies Allergy Verified 08/02/18 22:22 Date of admission: 12/09/18 23:35 Primary care physician: PCP NONE Consults: 12/10/18 08:36 Consult to Wound Care [CONS] Routine Reason for Consult: decubitus to sacral, ankle and heel Call Completed: No 12/10/18 08:37 Consult to Nutrition [CONS] Routine Comment: Consulting Provider: NUTRITION Reason for Dietary Consult: PO Supplementation 12/10/18 09:59 Consult to Infectious Diseases [CONS] Routine Consulting Provider: Infectious Disease [facility] Reason for Consult: chronic osteomyelitis Call Completed: Yes 12/10/18 11:37 Consult to Occupational Therapy [CONS] Routine Comment: Evaluate, develop and implement POC Reason for Consult: discharge Does patient have active BEDREST order?: No Is patient medically & hemodynamically stable?: Yes Patient assessed for mobility or mobilized this visit?: Yes Consult to Physical Therapy [CONS] Routine Comment: Evaluate, develop and implement POC Reason for Consult: weakness Does patient have active BEDREST order?: No Is patient medically & hemodynamically stable?: Yes Patient assessed for mobility or mobilized this visit?: Yes 12/10/18 17:34 Consult to Podiatry [CONS] Routine Consulting Provider: [facility] Reason for Consult: heel, and ankle decubitus Call Completed: Yes Consult to Surgery [CONS] Routine Consulting Provider: [facility] Reason for Consult: stage 4 sacral decubitus, and osteomyelitis Call Completed: Yes 12/13/18 08:13 Consult to PICC team [Consult to Invasive Line Access Team] [CONS] Routine Reason for Consult: PICC line in place, not drawing please evaluate Line Type: PICC 12/13/18 16:28 Consult to Urology [CONS] Routine Consulting Provider: Urology [facility] Reason for Consult: hematuria, pt pulled mccallum Time Notified: 16:29 Call Completed: Yes 12/14/18 09:36 Consult to Speech Therapy [CONS] Routine Comment: Evaluate, develop and implement POC Reason for Consult: Garbled speech, swallow eval Call Completed: No 12/14/18 15:25 Consult to Palliative Care [CONS] Routine Comment: Consulting Provider: [facility] [place] Reason for Consult: goals of care, decide if want to transfer Time Notified: 15:26 Call Completed: Yes - Constitutional Vitals: Temp Pulse Resp BP Pulse Ox 98.6 F 82 18 119/61 86 12/15/18 11:56 12/15/18 11:56 12/15/18 11:56 12/15/18 11:56 12/15/18 11:56 General appearance: Present: cooperative, A&O X 2 Exam: Falls asleep easily. Awakes to questions but has very soft speech deficit and difficult to understand today. - Respiratory Respiratory exam: Absent: accessory muscle use, rales, rhonchi, wheezes Additional comments: Coarse breath sounds - Cardiovascular Cardiovascular exam: Present: RRR, +S1, +S2, tachycardia. Absent: diastolic murmur, gallop, rubs, systolic murmur - GI/Abdominal GI/Abdominal exam: Present: normal bowel sounds, soft. Absent: tenderness - Skin Additional comments: Sacral decubitus ulcer covered. Bilateral lower extremities also have multiple decubitus ulcers which are covered - Patient Status Disposition: Transfer Intermediate Care Fac Condition: Critical - Discharge Instructions Instructions: Urinary Tract Infection in Men (DC), Chronic Obstructive Pulmonary Disease (DC), Anemia (GEN) Follow Up With: Brock Lyle MD [Non-Partnered Physician] - 12/29/18 8:00 am (IN [facility]) NONE,PCP [Primary Care Provider] - ([facility] - Attending Attestation I saw evaluated and examined this patient and my medical decision-making was reviewed with the Resident Physician, Gladis Franklin. I agree with the documented findings, disposition and treatment plan as described except to any changes set forth below. We independently had [id number] contact with the patient. Patient with a history of paraplegia and chronic sacral decubitus ulcer, we will decubitus ulcers in his both feet, chronic anemia, COPD with underlying osteomyelitis was brought to the hospital after he developed fever. He had recently been on IV antibiotics and had just completed antibiotic course about 2 days prior to onset of his fever. He was admitted here and was treated with IV antibiotics for suspected acute infection of his decubitus ulcer in his lower extremities and persistent osteomyelitis in his sacral region. He was evaluated by infectious disease and podiatry. He was recommended MRI of his left lower extremity which showed osteomyelitis at the lateral malleolus and mid left tibial diaphoresis. He also had diffuse infectious myositis of the musculature of the lower leg his wound cultures have been positive for Pseudomonas MDRO, Klebsiella pneumoniae, Providencia. Patient also has a chronic indwelling Mccallum catheter and his urine culture was positive for yeast and Acinetobacter. Per infectious disease recommendations, patient's antibiotics had been switched to colistin. However patient became increasingly encephalopathic since yesterday. CT scan of the chest was done which showed signs of aspiration. Speech therapy was consulted and patient was placed on Flagyl in addition to colistin. He was evaluated by podiatry and recommended amputation of left lower extremity but patient had previously been very hesitant about surgical treatment. He had also previously been referred to plastic surgery at [facility] for management of his multiple decubitus ulcers but he had refused this in the past. However given his current clinical condition, we have discussed this with his POA as patient is currently encephalopathic and recommended transfer to tertiary care center. She agrees with this plan and as such patient will be transferred to [facility] when he has a bed available. Patient also developed hematuria after he pulled out his Mccallum catheter. Urology was consulted and have replaced the Mccallum. He has continued to have good good drainage through his catheter since then. Patient has chronic anemia and this morning his hemoglobin was 7.9. Most likely nutritional anemia exacerbated with hematuria. Patient has been ordered 1 unit PRBC transfusion. <Gladis Franklin - Last Filed: 12/15/18 17:12> - NOTES TO OUTPATIENT PROVIDER Notes to Outpatient Provider: Patient intubated and transferred to [facility] for higher level of care and managment of multiple MDRO infections. Orders not resulted at time of discharge: Pending orders 12/09/18 22:01 Culture,Urine [RM] Stat 12/11/18 18:25 Culture,Wound [RM] Routine 12/14/18 07:16 Culture,Blood [BC] Stat 12/15/18 10:58 Culture,Sputum with Gram Stain [RM] Routine Legionella Antigen [RM] Routine Respiratory Infection Panel [MOLMIC] Routine S. Pneumoniae Antigen [RM] Routine 12/15/18 11:02 ABG [Arterial Blood Gas] Stat 12/15/18 11:04 Red Blood Cells [BBK] Stat Type and Screen [BBK] Stat Date of Encounter: 12/15/18 Time of Encounter: 11:06 - Discharge Diagnosis (1) Sepsis Priority: Primary Status: Resolved Qualifiers: Sepsis type: Pseudomonas Qualified Code(s): A41.52 - Sepsis due to Pseudomonas (2) Sacral decubitus ulcer Priority: Secondary Status: Chronic Qualifiers: Pressure injury stage: stage 4 Qualified Code(s): L89.154 - Pressure ulcer of sacral region, stage 4 (3) Osteomyelitis Priority: Secondary Status: Chronic Qualifiers: Osteomyelitis type: other Osteomyelitis location: multiple sites Qualified Code(s): M86.8X0 - Other osteomyelitis, multiple sites (4) Complicated UTI (urinary tract infection) Priority: Secondary Status: Acute (5) Osteomyelitis of sacrum Priority: Secondary Status: Chronic (6) Decubitus ulcer of left leg, unstageable Priority: Secondary Status: Acute (7) Pressure ulcer of right heel, unstageable Priority: Secondary Status: Acute (8) Pressure ulcer of left ankle, stage 3 Priority: Secondary Status: Chronic (9) Paraplegia Priority: Secondary Status: Chronic (10) COPD (chronic obstructive pulmonary disease) Priority: Secondary Status: Chronic Qualifiers: COPD type: chronic bronchitis Chronic bronchitis type: simple Qualified Code(s): J41.0 - Simple chronic bronchitis (11) Mood disorder Priority: Secondary Status: Chronic (12) Hepatitis C Priority: Secondary Status: Chronic Qualifiers: Viral hepatitis chronicity: chronic Hepatic coma status: without hepatic coma Qualified Code(s): B18.2 - Chronic viral hepatitis C (13) Tobacco use Priority: Secondary Status: Chronic (14) Hematuria Priority: Secondary Status: Acute (15) Pneumonia Priority: Secondary Status: Suspected Qualifiers: Pneumonia type: due to unspecified organism Laterality: right Lung location: unspecified part of lung Qualified Code(s): J18.9 - Pneumonia, unspecified organism (16) Acute respiratory failure Priority: Secondary Status: Acute Qualifiers: Respiratory failure complication: hypoxia Qualified Code(s): J96.01 - Acute respiratory failure with hypoxia Hospital course: Mr. Carrasco is a 53 year old male who presented to [facility] 12/10/2013 from [facility] where he had been staying for treatment of osteomyelitis. He was brought to the emergency department due to 2 days of fever. He was found to have multiple chronic decubitus sacral, left leg, left heel, right heel ulcers. Wound cultures and urine cultures were done in the emergency department. Blood cultures show no growth to date, repeat blood cultures on 12/14/2018 are pending with no growth to date. Urine culture grew Acinetobacter that is MDRO. Wound culture from sacral ulcer grew Klebsiella pneumoniae ESBL and Providencia stuartii. Left ankle culture grew P. aeruginosa MDRO. The patient has been evaluated by general surgery, podiatry and infectious disease. General surgery and podiatry have provided instructions for wound care. MRI of the left lower extremity was performed demonstrating osteomyelitis of the leg and ankle. Infectious disease started the patient on Colistin 12/14. The patient pulled at his Mccallum catheter on 12/13/18 and subsequently had blood clots and hematuria. U rology was consulted for further evaluation. The Mccallum catheter was replaced and urine has been draining by clear since. His Hgb has declined to 7.1 and 1 unit PRBC was transfused today. 12/14/18 the patient was acutely altered, demonstrated some left-sided weakness and garbled speech. A head CT was obtained that did not show any acute changes or intracranial bleed. CT scan of the chest was done which showed signs of aspiration. Speech therapy was consulted and patient was placed on Flagyl in addition to colistin. The patient did improve today after IV fluid hydration, however throughout the day his respiratory status has continued to decline. This afternoon he was noted to be saturating in the 70s- 80s on an Oxymask. A nonrebreather was placed on the patient with minimal improvement in oxygenation saturation. Respiratory therapy evaluate the patient and cannot find a BiPAP mask on his face. Pulmonology was consulted and the patient was subsequently transferred to the ICU and intubated. He did have bronchoscopy demonstrating diffuse mucus plugging. He was evaluated by podiatry and recommended amputation of left lower extremity but patient had previously been very hesitant about surgical treatment. He had also previously been referred to plastic surgery at [facility] for management of his multiple decubitus ulcers but he had refused this in the past. Earlier in the day [facility] transfer center had been called to transfer the patient to [facility] for higher level of care in the setting of his multiple infections with multiple drug-resistant organisms and declining clinical status. [facility] has accepted the patient and has been attempting to find a bed for him today. I did call and update [facility] on his current status of being intubated in the ICU. They are currently working to find him a bed and he will be transferred in stable condition once one is available. His POA Katrin Carrasco has been updated on patient status and has agreed to transfer, intubation and bronchoscopy. Discharge discussed with: patient, family, nurse, advisor consultant - Time Spent with Patient Total time spent providing and/or coordinating discharge services: Date of admission: 12/09/18 23:35 Primary care physician: PCP NONE Consults: 12/10/18 08:36 Consult to Wound Care [CONS] Routine Reason for Consult: decubitus to sacral, ankle and heel Call Completed: No 12/10/18 08:37 Consult to Nutrition [CONS] Routine Comment: Consulting Provider: NUTRITION Reason for Dietary Consult: PO Supplementation 12/10/18 09:59 Consult to Infectious Diseases [CONS] Routine Consulting Provider: Infectious Disease [facility] Reason for Consult: chronic osteomyelitis Call Completed: Yes 12/10/18 11:37 Consult to Occupational Therapy [CONS] Routine Comment: Evaluate, develop and implement POC Reason for Consult: discharge Does patient have active BEDREST order?: No Is patient medically & hemodynamically stable?: Yes Patient assessed for mobility or mobilized this visit?: Yes Consult to Physical Therapy [CONS] Routine Comment: Evaluate, develop and implement POC Reason for Consult: weakness Does patient have active BEDREST order?: No Is patient medically & hemodynamically stable?: Yes Patient assessed for mobility or mobilized this visit?: Yes 12/10/18 17:34 Consult to Podiatry [CONS] Routine Consulting Provider: [facility] Reason for Consult: heel, and ankle decubitus Call Completed: Yes Consult to Surgery [CONS] Routine Consulting Provider: [facility] Reason for Consult: stage 4 sacral decubitus, and osteomyelitis Call Completed: Yes 12/13/18 08:13 Consult to PICC team [Consult to Invasive Line Access Team] [CONS] Routine Reason for Consult: PICC line in place, not drawing please evaluate Line Type: PICC 12/13/18 16:28 Consult to Urology [CONS] Routine Consulting Provider: Urology [facility] Reason for Consult: hematuria, pt pulled mccallum Time Notified: 16:29 Call Completed: Yes 12/14/18 09:36 Consult to Speech Therapy [CONS] Routine Comment: Evaluate, develop and implement POC Reason for Consult: Garbled speech, swallow eval Call Completed: No 12/14/18 15:25 Consult to Palliative Care [CONS] Routine Comment: Consulting Provider: [facility] [place] Reason for Consult: goals of care, decide if want to transfer Time Notified: 15:26 Call Completed: Yes Discharging clinician: Gladis Franklin Anticipated date of discharge: 12/15/18 - Constitutional Vitals: Temp Pulse Resp BP Pulse Ox 99.6 F 105 18 98/61 92 12/15/18 07:33 12/15/18 07:33 12/15/18 07:33 12/15/18 07:33 12/15/18 07:33 General appearance: Present: A&O X 3 Exam: General: alert and oriented, frail, chronically ill-appearing, NAD, arouses to voice and rubbing his arm HEENT: NC/AT, PERRLA, EOMI, mucous membranes dry Cardio: tachycardic w/o MRG, pulses 2+ Respiratory: CTAB, no cyanosis or clubbing Abd: soft, non-tender, no guarding or rigidity, bs present. Stoma left lower abdomen with no output in ostomy, Mccallum catheter in place with dark urine in bag, no blood Extremities: non-tender, no edema, pulses 2+, PICC in place right UE Skin: warm, dry, multiple wounds that are currently dressed on his bilateral legs, and sacrum. He has heelmedix boots on b/l. Neuro: soft speech that is not garbled, does not stay awake to follow further commands, paraplegia, unable to cooperate with further neuro exam - Patient Status Functional capacity at discharge: bed bound Overall status at discharge: patient is not back to baseline - Diet and Activity Activity: as per physical therapy Diet: other
--- NOTE | 2018-12-15 11:17 | Palliative - Consult Note ---
<Tao Olivas S - Last Filed: 12/15/18 11:15> Date of Encounter: 12/15/18 Time of Encounter: 11:16 - Assessment and Plan (1) Goals of care, counseling/discussion Current Visit: Yes Status: Acute Assessment and plan: Patient seen at bedside. The patient is currently unable to participate in the goals of care discussion as he is extremely sleepy. In the past, the pt wishes to be a full code and refuses to give up on treatment. In the past the pt also refused transfer to [facility] for plastic surgery evaluation. He does have extensive osteomyelitis of the sacrum and the bilateral lower extremities (leg left/right foot). Podiatry recommendations at this time are that he needs a left leg amputation and right foot amputation, however, they feel he needs higher level of care and possibly needs to have plastic surgery on board. He is currently going to be transferred to [facility] for a higher level of care. At this time we spoke with daughter Katrin GEORGE). She is agreeable for him to be transferred to [facility] for further management and higher level of care. She was informed that he now has bilateral osteomyelitis. She does state that his goal is to try to get better so he can go home and take care of himself. She wishes to speak with the rest of the family before making a final decision, however, she is okay with pro ceeding with transfer. (2) Pressure ulcer Current Visit: Yes Status: Chronic Assessment and plan: Patient has extensive pressure ulcers. Left tibia has pressure ulcer measuring 9x3cm. [employer] Team Member noted eschar, foul smell. At this time, they feel he needs the left leg amputated and the right foot amputated. XR showed findings concerning for possible osteomyelitis along the mid left tibia medial diapysis. MRI confirmed broad ulceration with moderate cellulitis along the anteromedial aspect of the left left with exposure of the subajacent mid tibial diaphyseal cortex and subjacent cortical destruction as well as osteomyelitis of the mid left tibial diaphysis. Ulcer at the lateral aspect of the left ankle with subjacent osteomyelitis at the lateral malleolus. Moderate diffuse infectious myositis of the musculature of the left lower leg. Continue abx as per infectious disease. Wound care by podiatry. Transfer to [facility] pending. Qualifiers: Pressure injury location: contiguous region involving back, buttock, and hip Pressure injury stage: stage 4 Laterality: unspecified laterality Qualified Code(s): L89.44 - Pressure ulcer of contiguous site of back, buttock and hip, stage 4 (3) Paraplegia Current Visit: Yes Status: Acute Assessment and plan: Continue q2hr turns, fall precautions, pain control. (4) COPD (chronic obstructive pulmonary disease) Current Visit: Yes Status: Acute Assessment and plan: Not in acute exacerbation. Management as per primary. Qualifiers: COPD type: unspecified COPD Qualified Code(s): J44.9 - Chronic obstructive pulmonary disease, unspecified (5) Pressure ulcer of both feet, unstageable Current Visit: No Status: Acute Assessment and plan: Wound care per wound care team. (6) Osteomyelitis Current Visit: No Status: Chronic Assessment and plan: Pt has extensive osteomyelitis of the sacrum and LE. He does require higher level of care and will be transferred to [facility]. Qualifiers: Osteomyelitis type: other Osteomyelitis location: multiple sites Qualified Code(s): M86.8X0 - Other osteomyelitis, multiple sites (7) Complicated UTI (urinary tract infection) Current Visit: Yes Status: Acute Assessment and plan: Pt cultures have grown klebsiella and proteus mirabilis. - klebsiella sensitive to carbapenem and zosyn, to other abx is resistant - proteus sensitive to ertapenem, imipenem and zosyn, to other abx is panresistant Current cx growing actineobacter baumannii MDRO and yeast Pt is currently on contact precautions, mccallum inplace. ID following. Palliative-CN HPI - Data of Consult Patient: known to practice within the last 3 years Consult date: 12/14/18 Requesting Physician: Griffin Biswas MD Primary Care Provider: PCP NONE - Consult Narrative Palliative Care/Comfort Measures: Palliative care Reason for consult: goals of care History of present illness: Mr. Carrasco is a 53 year old male with PMH COPD, dementia, GERD, hepatitis C, paraplegia, schizophrenia and chronic osteomyeltiis. He presented on 12/10 from [facility] for 2 days of fever. The pt was recently here 10/19/18 and had been discharged with 6wks of Invanz for chronic sacral decubitus ulcer. His wound culture grew gram negative bacteria. Patient has since been evaluated by podiatry, who feel that the patient needs to have an amputation of the left lower extremity and an amputation of the right foot. In the past the pt has been adament that he doesn't want plastics surgery involved nor did he wish for transfer to [facility] on last visit. He did, however, want "everything possible done" and wanted aggressive management. He was also found to have a UTI and cultures on 12/09 grew yeast and MDRO actinebobacter baumannii. At this time, he is consulted for goals of care. At bedside the patient is unable to participate in conversation. He is very sleepy and somnolent. He only moans and hardly is able to make coherent sentences. We will contact daughter, who is his POA, at this time to figure out if transfer to [facility] aligns with their wishes for treatment. CC: Griffin Biswas MD - Time Spent with Patient Time: Total time spent is greater than 50% in coordination of care (as documented) at patient's floor/unit and/or counseling patient: Time with patient: 20 minutes Past Med Surg Social Fam HX - Past Medical History Medical history: COPD, dementia, GERD, hepatitis, other Additional medical history: spinal stenosis, anemia, encephalopathy, GI hemorrhage,MRSA, osteomyelitis, pressure ulcer Psychiatric history: bipolar, schizophrenia - Past Surgical History Surgical History: non-contributory Additional surgical history: back/spine surgery, evacuation of epidural abscess, I&D, C5-T1 laminectomy December 2017 - Social History Smoking Status: Current every day smoker Smokeless Tobacco Status: No Alcohol use: none Drug use: none - Family History Father Living Status: Hx Family Cardiac Disorders: Yes (MD) Mother Living Status: Hx Family Cancer: Yes Medications and Allergies Albuterol Neb [Proventil Neb] 2.5 mg IH Q6H PRN 07/01/18 [History] Baclofen [Lioresal] 10 mg PO TID 07/01/18 [History] Famotidine [Heartburn Prevention] 20 mg PO Q12H 07/01/18 [History] Gabapentin [Neurontin] 600 mg PO TID 07/01/18 [History] Heparin 5,000 unit SQ Q8H 07/01/18 [History] Nortriptyline [Pamelor] 25 mg PO HS 07/01/18 [History] Ascorbic Acid [Vitamin C] 500 mg PO BID 07/28/18 [History] Budesonide/Formoterol 80/4.5 [Symbicort 80/4.5] 2 puff IH BID 07/28/18 [History] Lactulose [Enulose] 20 gm PO TIDWM 07/28/18 [History] Lidocaine [Aspercreme] 1 patch TP DAILY 07/28/18 [History] Melatonin [Melatin] 3 mg PO HS 07/28/18 [History] Multivitamin [Multivitamins] 1 tab PO DAILY 07/28/18 [History] OLANZapine [Zyprexa] 10 mg PO QPM 07/28/18 [History] Zinc Sulfate 220 mg PO BID 07/28/18 [History] Acetaminophen [Tylenol] 650 mg PO Q8H PRN 08/04/18 [History] Amino Acids/Protein Hydrolys [Pro-Stat Awc Liquid] 30 ml PO BID 09/09/18 [History] Buspirone HCl [Buspar] 5 mg PO TID 09/09/18 [History] Valproic Acid [Depakene] 500 mg PO Q8H 09/18/18 [History] Doxycycline Hyclate 100 mg PO BID 60 Days #90 capsule 10/19/18 [Rx] Tramadol HCl [Ultram] 50 mg PO Q8H PRN 10 Days #30 tablet 10/19/18 [Rx] Ferrous Sulfate 325 mg PO BID 12/11/18 [History] Magnesium Oxide [Magnesium] 400 mg PO DAILY 12/11/18 [History] Allergy/AdvReac Type Severity Reaction Status Date / Time No Known Allergies Allergy Verified 08/02/18 22:22 ROS unobtainable: due to mental status Palliative Care-Exam - Constitutional Vitals: Temp Pulse Resp BP Pulse Ox 99.6 F 105 18 98/61 92 12/15/18 07:33 12/15/18 07:33 12/15/18 07:33 12/15/18 07:33 12/15/18 07:33 General appearance: Present: disheveled, no acute distress, thin - Head Head Exam: Present: atraumatic, normocephalic - Respiratory Respiratory exam: Present: decreased breath sounds, prolonged expiratory phase, respiratory distress (mild respiratory distress) - Expanded Respiratory Exam Location: decreased breath sounds: Left, Right, Upper, Lower, rhonchi: Left, Right, Upper, Lower - Cardiovascular Cardiovascular exam: Present: tachycardia. Absent: JVD - GI/Abdominal Exam GI/Abdominal exam: Present: soft. Absent: distended, tenderness - Extremities Exam Additional comments: lower left extremity wrapped from the knee down, right lower foot wrapped. Pt ahs ulceration along left leg anteromedially; ulcer at the lase of the lateral aspect of the left ankle - Neurological Exam Neurological exam: Present: altered, no focal deficits. Absent: alert - Psychiatric Psychiatric exam: Present: anxious Additional comments: anxious appearing male - Skin Additional comments: bilateral lower extremities wrapped in bandages; upper extremities are intact and warm/dry Internal Medicine - CN: Reslt - Labs CBC & Chem 7: 12/15/18 05:51 12/15/18 05:51 Labs: Short CBC 12/15/18 Range/Units 05:51 WBC 7.0 (4.3-11.1) K/mcL Hgb 7.1 L (12.9-16.9) g/dL Hct 24.9 L (37.5-50.1) % Plt Count 107 L (140-400) K/mcL Neutrophils # 5.2 (1.6-8.9) K/mcL BMP 12/15/18 05:51 Sodium 142 Potassium 4.1 Chloride 108 H Carbon Dioxide 27 BUN 13 Creatinine 0.74 Glucose 78 Calcium 9.5 - ABG Interpretation ABG results: PT/INR, D-dimer PT 14.0 Seconds (9.4-12.1) H 12/14/18 07:16 - Impressions Impressions Chest X-Ray 12/14/18 06:35 IMPRESSION: Mild right basilar opacity, atelectasis favored over pneumonia. Rotation limits the exam. Consider radiographic follow-up. D/ / 12/14/2018 08:06:52 Luis Sanford MD / ayad Interpreting Provider: Luis Sanford MD Chest CT 12/14/18 14:31 IMPRESSION: Patchy right upper lobe and bilateral lower lobe, right greater than left, airspace disease most compatible with pneumonia. There is frothy material within the central bronchi extending into lower lung branches, possibly mucous secretions. Aspiration could be considered as well. D/ / Lynda Valentino Cha, MD / Lynda Valentino Cha, MD Interpreting Provider: Lynda Valentino Cha, MD Consult Discharge Plan - Plan Referrals: Brock Lyle MD [Non-Partnered Physician] - 12/29/18 8:00 am (IN [facility]) NONE,PCP [Primary Care Provider] - (Patient is from [facility]) Palliative Quality Palliative Quality: Screen for Code Status: No, Screen for Goals of Care: No, Screen for Pain: No, If Pain Regimen Started, Initiate Bowel Regimen: NA, Screen for Nausea/Vomitting: No Code Status: 12/10/18 08:32 Resuscitation Status: Active [RES] Routine Comment: Resuscitation Status: Full Code Palliative Scale - Palliative Performance Scale How ambulatory is this patient?: Totally bed bound What is patient's level of activity and evidence of disease?: Unable to do most activity, Extensive disease How much self-care assistance does patient require?: Total care How much oral intake does the patient have?: Mouth care only What is this patient's level of consciousness?: Full or drowsy with or without confusion Palliative Performance Score: 30 % <Karishma Bagley - Last Filed: 12/15/18 12:19> Date of Encounter: 12/15/18 Palliative-CN HPI - Data of Consult Requesting Physician: Griffin Biswas MD Primary Care Provider: PCP NONE - Consult Narrative History of present illness: Mr. Carrasco is a 53 year old male CC: Griffin Biswsa MD - Time Spent with Patient Time: Total time spent is greater than 50% in coordination of care (as documented) at patient's floor/unit and/or counseling patient: Palliative Care-Exam - Constitutional Vitals: Temp Pulse Resp BP Pulse Ox 99.6 F 105 20 98/61 93 12/15/18 07:33 12/15/18 07:33 12/15/18 11:21 12/15/18 07:33 12/15/18 11:21 Internal Medicine - CN: Reslt - Labs CBC & Chem 7: 12/15/18 05:51 12/15/18 05:51 Labs: Short CBC 12/15/18 Range/Units 05:51 WBC 7.0 (4.3-11.1) K/mcL Hgb 7.1 L (12.9-16.9) g/dL Hct 24.9 L (37.5-50.1) % Plt Count 107 L (140-400) K/mcL Neutrophils # 5.2 (1.6-8.9) K/mcL BMP 12/15/18 05:51 Sodium 142 Potassium 4.1 Chloride 108 H Carbon Dioxide 27 BUN 13 Creatinine 0.74 Glucose 78 Calcium 9.5 - ABG Interpretation ABG results: ABG ABG pH 7.46 pH Units (7.32-7.45) H 12/15/18 11:22 ABG pCO2 43 mmHg (35-45) 12/15/18 11:22 ABG pO2 78 mmHg (85-104) L 12/15/18 11:22 ABG O2 Saturation 96 % (95-98) 12/15/18 11:22 PT/INR, D-dimer PT 14.0 Seconds (9.4-12.1) H 12/14/18 07:16 - Impressions Impressions Chest X-Ray 12/14/18 06:35 IMPRESSION: Mild right basilar opacity, atelectasis favored over pneumonia. Rotation limits the exam. Consider radiographic follow-up. D/ / 12/14/2018 08:06:52 Luis Sanford MD / ayad Interpreting Provider: Luis Sanford MD Chest CT 12/14/18 14:31 IMPRESSION: Patchy right upper lobe and bilateral lower lobe, right greater than left, airspace disease most compatible with pneumonia. There is frothy material within the central bronchi extending into lower lung branches, possibly mucous secretions. Aspiration could be considered as well. D/ / Lynda Valentino Cha, MD / Lynda Valentino Cha, MD Interpreting Provider: Lynda Valentino Cha, MD - Attending Attestation I performed a history and physical examination of the patient and discussed his management with the resident. I reviewed the residents note and agree with the documented findings and plan of care, except as follow: Patient today at the time of a concern was anxious and confused, Unable to participate in discussion, unable to make his needs known. In no acute distress. Called and discussed with daughter RAH Wilkes. She states that patient is still wanting to have everything done, because he is hoping to be able to regain functionality of his legs, and go back to leaving independently. Discussed the current medical condition, trajectory of illness, prognosis and treatment option. She was made aware that podiatry recommended bilateral amputation for patient. Katrin was very distressed by the news, because she knows patient wants to walk. However, she also stated that patient still wants all to be done to keep him alive so he has a chance to recover. Katrin is agreeable for patient to be transferred to [facility], but she would like further discussion with ama garcia before any decision be made about surgery. Patient remains FULL CODE Palliative Quality Code Status: 12/10/18 08:32 Resuscitation Status: Active [RES] Routine Comment: Resuscitation Status: Full Code
[2018-12-15] MEDS: Budesonide/Formoterol 80/4.5 MDI IH SCH (11:21)
[2018-12-15 11:26] LABS: ABG Base Excess 6 mEq/L (-2 to 3); ABG HCO3 30 mEq/L (21-27); ABG Oxygen Saturation 96 % (95-98); ABG PCO2 43 mmHg (35-45); ABG PH 7.46 pH Units (7.32-7.45); ABG PO2 78 mmHg (85-104); ABG TCO2 32 mEq/L (20-26)
[2018-12-15] MEDS: Lactulose Oral Soln 20 GM/30 ML UDC PO SCH ×2 (12:12→16:30)
[2018-12-15] MEDS: Gabapentin 300 MG CAPSULE PO SCH ×2 (12:12→16:02)
[2018-12-15] MEDS: Iron Polysaccharide Complex 150 MG CAPSULE PO SCH (12:12)
[2018-12-15] MEDS: Baclofen 10 MG TABLET PO SCH ×2 (12:12→16:02)
[2018-12-15] MEDS: Valproic Acid 250 MG CAPSULE PO SCH (12:12)
[2018-12-15] MEDS: Famotidine 20 MG TABLET PO SCH ×2 (12:12→16:10)
[2018-12-15] MEDS: Zinc Sulfate 220 MG CAPSULE PO SCH (12:13)
[2018-12-15] MEDS: Multivit/Ca/Min/Fe/FA 1 TAB TABLET PO SCH (12:13)
[2018-12-15] MEDS: Ascorbic Acid 500 MG TABLET PO SCH (12:13)
[2018-12-15] MEDS ORDERED: Artificial Tears SOLN 15 ML BOTTLE BOTH EYES PRN (15:18)
[2018-12-15] MEDS ORDERED: FentaNYL (PF) 1,000 MCG in 0.9 % Sodium Chloride 80 ML IVC SCH (15:30)
[2018-12-15] MEDS ORDERED: Valproic Acid INJ 500 MG in 0.9 % Sodium Chloride 100 ML IVPB SCH (15:30)
[2018-12-15] MEDS ORDERED: Dexmedetomidine HCl 400 MCG/100 ML MLS IVC SCH (15:30)
--- NOTE | 2018-12-15 15:50 | Pulmonology Consult Note ---
<Christelle Foote - Last Filed: 12/15/18 18:16> Date of Encounter: 12/15/18 Time of Encounter: 03:30 Assessment and Plan (1) Acute respiratory failure Status: Acute Today, patient had increasing respiratory distress. He was saturating in the 70s and 80s on high flow. Patient was subsequently sedated and intubated. Concern for aspiration pneumonia secondary to decreasing mental status Chest CT 12/14/18- patchy right upper lobe and bilateral lower lobe airspace disease suggestive of pneumonia and mucus secretions chest x-ray 12/15/18- right basilar opacity Bronchoscopy was performed, mucus secretions were suctioned. Cultures, Gram stain, cytology from bronchoscopy pending. Continue sedation with Precedex and fentanyl Continue colistin and Flagyl. Continue mechanical ventilation and respiratory support as necessary. Transfer to [facility] pending. Qualifiers: Respiratory failure complication: hypoxia Qualified Code(s): J96.01 - Acute respiratory failure with hypoxia (2) Acute encephalopathy Status: Acute Patient has had altered mental status since 12/13/18, mental status has continued to decline. Acute respiratory failure likely secondary to worsening mental status due to multiple infections, osteomyelitis, UTI, pneumonia Head CT negative for acute intracranial abnormality, chronic microvascular disease present. Plan continue antibiotic regimen and respiratory support. (3) Decubitus ulcer, stage 4 with infection Status: Acute Stage IV sacral decubitus ulcer complicated by osteomyelitis. Recently completed 6 week course of antibiotics at [facility]. Decubitus sacral ulcer had purulent drainage on presentation Wound culture grew Klebsiella pneumoniae and Providencia stuartii Surgery consulted, recommendations are to undergo plastic surgery, however patient is reluctant Continue wound care Continue colistin Continue pain control Continue glycemic control. (4) Osteomyelitis Status: Chronic Osteomyelitis present in left lateral malleolus, left tibia, and decubitus sacral ulcer. Wound culture of sacral ulcer revealed Klebsiella pneumonia and Providencia stuartii Left ankle wound culture grew pseudomonas aeruginosa Surgery and podiatry consulted, recommends surgical intervention and amputation of left lower extremity, however patient has been reluctant in the past. Continue gentamicin ointment, Santyl dressing Continue colistin and wound care. Qualifiers: Osteomyelitis type: other Osteomyelitis location: multiple sites Qualified Code(s): M86.8X0 - Other osteomyelitis, multiple sites (5) Pneumonia Status: Acute Suspect aspiration pneumonia secondary to altered mental status Contributing to acute respiratory failure Chest CT revealed patchy right upper lobe and bilateral lower lobe airspace disease suggestive of pneumonia with mucous secretions and possible aspiration Chest x-ray today revealed right basilar opacity Bronchoscopy was performed, cultures, cytology, Gram stain pending Continue metronidazole and colistin and respiratory support Qualifiers: Pneumonia type: aspiration pneumonia Aspiration pneumonia type: unspecified Laterality: bilateral Lung location: lower lobe of lung Qualified Code(s): J69.0 - Pneumonitis due to inhalation of food and vomit (6) Complicated UTI (urinary tract infection) Status: Acute Patient has a history of UTI Patient has an indwelling Willis catheter that has been changed Current urine culture positive for Enterobacter baumannii MDRO Previous urine cultures 10/14/2018: Klebsiella pneumoniae S: Carbapnem and zosyn (otherwise fatima resistant) and Proteus mirabilis S: Ertapenem, imipenem and Zosyn (otherwise fatima resistant) Recent trauma to Willis, while altered, patient attempted to pull Willis out and caused injury to the urethral meatus. Urology recommendations are suprapubic catheter placement as outpatient Continue colistin. (7) Decubitus ulcer of left leg, unstageable Status: Acute Decubitus pressure ulcer of the left tibia and lateral malleolus, complicated by osteomyelitis Left tibia and fibular x-ray showed possible osteomyelitis along mid left tibia medial diaphysis and ulceration of soft tissues. MRI of left leg showed broad ulceration with moderate cellulitis along kishan- medial aspect of left leg, exposure of mid tibial diaphyseal cortex and subjacent cortical destruction and osteomyelitis of mid left tibial diaphysis with subjacent osteomyelitis left lateral malleolus. Wound culture of left lower extremity grew Pseudomonas Continue colistin Continue wound care and heelmedix boots (8) Pressure ulcer of right heel, unstageable Status: Acute Pressure ulcer of right heel present, no osteomyelitis seen on x-ray. Continue wound care and heelmedix boots (9) Paraplegia Status: Acute History of paraplegia secondary to previous fall with back injury and surgical repair Continue supportive care, routine nursing care, fall precautions (10) COPD (chronic obstructive pulmonary disease) Status: Acute History of COPD Possibly contributing to acute respiratory failure Continue Symbicort, albuterol Qualifiers: COPD type: unspecified COPD Qualified Code(s): J44.9 - Chronic obstructive pulmonary disease, unspecified (11) Mood disorder Status: Chronic Continue home medications, BuSpar, nortriptyline, olanzapine (12) Hepatitis C Status: Chronic History of hepatitis C Chronic issue Qualifiers: Viral hepatitis chronicity: chronic Hepatic coma status: without hepatic coma Qualified Code(s): B18.2 - Chronic viral hepatitis C (13) Tobacco use Status: Chronic Current smoker Encourage cessation Contributing to COPD and chronic lung issues. (14) Hematuria Status: Acute Hematuria present secondary to traumatic Willis incident While altered, patient pulled on Willis and attempt to remove it Gross hematuria was present Urology has evaluated and has replaced Willis Continue to monitor. Qualifiers: Hematuria type: gross Qualified Code(s): R31.0 - Gross hematuria (15) DVT prophylaxis Status: Acute Lovenox currently on hold secondary to hematuria and diffuse lower extremity pressure ulcers Consider restarting tomorrow History of Present Illness Consult date: 12/15/18 Chief complaint: Acute respiratory failure History of present illness: David Carrasco is a 53-year-old male who presented on 12/09/18 from [facility] with complaint of fever and tachycardia. PMH: osteomyelitis of sacral decubitus ulc er, right heel ulcer, left lower extremity ulcer, epidural abscess, paraplegia of both lower extremities, COPD, anemia, tachycardia, urinary tract infection, dementia, GERD, hepatitis C, bipolar, schizophrenia, current smoker. He also has a history of spinal surgery secondary to a previous injury and has chronic weakness in upper and lower extremities. Patient also has a PICC line, an ostomy bag and chronic Willis use. Patient subsequently diagnosed with complicated urinary tract infection, caused by Enterobacter baumanni multi drug resistant. Osteomyelitis of coccyx secondary to stage IV sacral decubitus ulcer. Wound cultures of sacral decubitus ulcer positive for Klebsiella pneumonia and Providencia stuartii. He has recently completed 6 weeks course of antibiotics for the sacral decubitus ulcer. Left lateral malleolus and tibia wound culture positive for Pseudomonas. Patient also has a unstageable pressure ulcer of right heel. Infectious disease, surgery, podiatry, wound care consults for further management of patient. Patient had an episode of tugging on Willis catheter with injury to urethral meatus, urology consultation for management. Current antibiotics include colistimethate and Flagyl. Since Friday, patient has had increased confusion and altered mental status. Pulmonary consult was placed secondary to acute respiratory failure, patient was saturating in the 80s on a nonrebreather mask at high flow. There was concern for aspiration pneumonia. Patient was subsequently sedated, intubated, and transferred to the ICU. Bronchoscopy was performed. Patient is pending transfer to higher level of care at [facility] where he has been a patient previously. Past Med Surg Social Fam HX - Past Medical History Medical history: COPD, dementia, GERD, hepatitis, other Additional medical history: spinal stenosis, anemia, encephalopathy, GI hemorrhage,MRSA, osteomyelitis, pressure ulcer Psychiatric history: bipolar, schizophrenia - Past Surgical History Surgical History: non-contributory Additional surgical history: back/spine surgery, evacuation of epidural abscess, I&D, C5-T1 laminectomy December 2017 - Social History Smoking Status: Current every day smoker Smokeless Tobacco Status: No Alcohol use: none Drug use: none - Family History Father Living Status: Hx Family Cardiac Disorders: Yes (NM) Mother Living Status: Hx Family Cancer: Yes Medications and Allergies RX: Albuterol Neb [Proventil Neb] 2.5 mg IH Q6H PRN 07/01/18 [History] RX: Baclofen [Lioresal] 10 mg PO TID 07/01/18 [History] RX: Famotidine [Heartburn Prevention] 20 mg PO Q12H 07/01/18 [History] RX: Gabapentin [Neurontin] 600 mg PO TID 07/01/18 [History] RX: Nortriptyline [Pamelor] 25 mg PO HS 07/01/18 [History] RX: Ascorbic Acid [Vitamin C] 500 mg PO BID 07/28/18 [History] RX: Budesonide/Formoterol 80/4.5 [Symbicort 80/4.5] 2 puff IH BID 07/28/18 [History] RX: Lactulose [Enulose] 20 gm PO TIDWM 07/28/18 [History] RX: Lidocaine [Aspercreme] 1 patch TP DAILY 07/28/18 [History] RX: Melatonin [Melatin] 3 mg PO HS 07/28/18 [History] RX: Multivitamin [Multivitamins] 1 tab PO DAILY 07/28/18 [History] RX: OLANZapine [Zyprexa] 10 mg PO QPM 07/28/18 [History] RX: Zinc Sulfate 220 mg PO BID 07/28/18 [History] RX: Acetaminophen [Tylenol] 650 mg PO Q8H PRN 08/04/18 [History] RX: Amino Acids/Protein Hydrolys [Pro-Stat Awc Liquid] 30 ml PO BID 09/09/18 [History] RX: Buspirone HCl [Buspar] 5 mg PO TID 09/09/18 [History] RX: Valproic Acid [Depakene] 500 mg PO Q8H 09/18/18 [History] RX: Tramadol HCl [Ultram] 50 mg PO Q8H PRN 10 Days #30 tablet 10/19/18 [Rx] RX: Ferrous Sulfate 325 mg PO BID 12/11/18 [History] RX: Magnesium Oxide [Magnesium] 400 mg PO DAILY 12/11/18 [History] RX: Iron Polysaccharide Complex [Ferrex 150] 150 mg PO DAILY capsule 12/15/18 [Rx] Allergy/AdvReac Type Severity Reaction Status Date / Time No Known Allergies Allergy Verified 08/02/18 22:22 ROS unobtainable: due to endotracheal tube, due to mental status All Systems: The remainder of the systems were reviewed and are negative Physical Examination Vital Signs: Vital Signs, Last 4 Hours Temp Pulse Resp BP Pulse Ox 12/15/18 11:56 98.6 F 82 18 119/61 86 Gen.: Vitals noted. Mild respiratory distress, sedated and intubated HEENT: PERRLA, Normocephalic, atraumatic, MMM Neck: Supple. No adenopathy. Trachea midline Cardiac: Tachycardic, regular rhythm, no murmur, +S1/S2, No BLE edema. Radial pulses 2+ dorsal pedis pulses 1+. Capillary refill less than 2 seconds in all extremities. Pulmonary: Clear to auscultation bilaterally, somewhat diminished breath sounds, equal chest expansion, no accessory muscle use Abdomen: soft, nontender, BS noted, no guarding, no palpable HSM. Ostomy in place, no erythema, minimal output. Back: Nontender throughout. Skin: warm and dry, bilateral lower extremity wounds are dressed, no drainage on dressing or erythema surrounding dressing. Sacral decubitus ulcer is dressed, no erythema or drainage noted around bandage. Male genital exam: Willis in place, traumatic lesion to urethral meatus present. No obvious signs of bleeding from lesion. MSK: No joint swelling noted, paraplegic. Non tender calf or clubbing Neuro: Sedated, moves bilateral upper extremities, paraplegic, PERRLA, unable to fully assess cranial nerves. Psych: Unable to assess as patient is sedated. Lines: PICC line in place, no erythema, no signs of infection. Results - Laboratory Findings CBC and BMP: 12/15/18 05:51 12/15/18 05:51 ABG ABG pH 7.46 pH Units (7.32-7.45) H 12/15/18 11:22 ABG pCO2 43 mmHg (35-45) 12/15/18 11:22 ABG pO2 78 mmHg (85-104) L 12/15/18 11:22 ABG O2 Saturation 96 % (95-98) 12/15/18 11:22 PT/INR, D-dimer PT 14.0 Seconds (9.4-12.1) H 12/14/18 07:16 Abnormal lab findings: Abnormal lab results RBC 3.01 M/mcL (4.19-5.50) L 12/15/18 05:51 Hgb 7.1 g/dL (12.9-16.9) L 12/15/18 05:51 Hct 24.9 % (37.5-50.1) L 12/15/18 05:51 MCV 82.7 fL (83.0-100.0) L 12/15/18 05:51 MCH 23.6 pg (28.0-33.3) L 12/15/18 05:51 MCHC 28.5 g/dL (31.6-35.5) L 12/15/18 05:51 RDW 17.7 % (11.5-14.5) H 12/15/18 05:51 Plt Count 107 K/mcL (140-400) L 12/15/18 05:51 MPV 9.3 fL (9.4-12.4) L 12/15/18 05:51 Platelet Estimate Slight Decrease (Normal) L 12/15/18 05:51 Hypochromasia Present (Not Present) A 12/15/18 05:51 Anisocytosis 1+ (Not Present) A 12/15/18 05:51 ESR >= 130 mm/hr (0-10) H 12/11/18 05:30 PT 14.0 Seconds (9.4-12.1) H 12/14/18 07:16 ABG pH 7.46 pH Units (7.32-7.45) H 12/15/18 11:22 ABG pO2 78 mmHg (85-104) L 12/15/18 11:22 ABG HCO3 30 mEq/L (21-27) H 12/15/18 11:22 ABG Total CO2 32 mEq/L (20-26) H 12/15/18 11:22 ABG Base Excess 6 mEq/L (-2 to 3) H 12/15/18 11:22 Chloride 108 mEq/L (98-107) H 12/15/18 05:51 Magnesium 1.5 mg/dL (1.6-2.6) L 12/15/18 05:51 AST 9 Units/L (13-39) L 12/09/18 20:27 C-Reactive Protein 96 mg/L (Less than 10) H 12/11/18 05:30 Albumin 2.9 g/dL (3.5-5.7) L 12/09/18 20:27 Globulin 3.8 g/dL (2.4-3.5) H 12/09/18 20:27 Albumin/Globulin Ratio 0.8 (1.1-2.2) L 12/09/18 20:27 Ur Specimen Adequacy See below A 12/09/18 22:01 Urine Clarity Cloudy (Clear) A 12/09/18 22:01 Urine Protein 30 mg/dL (Neg-Trace) H 12/09/18 22:01 Urine Blood Large (Negative) H 12/09/18 22:01 Ur Leukocyte Esterase Large (Negative) H 12/09/18 22:01 Urine Microscopic WBC 15-30 per hpf (0-3) H 12/09/18 22:01 Urine Yeast Moderate per hpf (None Seen) H 12/09/18 22:01 Ur Culture Indicated? YES (NO) A 12/09/18 22:01 - Microbiology Findings Microbiology Findings: Microbiology, Last 48 Hours 12/10/18 08:34 Blood Culture - Final Peripheral Central Cath, Picc No growth. Final report. 12/09/18 20:27 Blood Culture - Final Peripheral Venipuncture No growth. Final report. 12/09/18 20:27 Blood Culture - Final Peripheral Venipuncture No growth. Final report. 12/11/18 18:25 Wound Culture - Preliminary Left Ankle P. aeruginosa MDRO 12/09/18 22:01 Urine Culture - Preliminary Urine,[place] Yeast Species Acinetobacter baumannii MDRO 12/14/18 07:16 Blood Culture - Preliminary Peripheral Venipuncture Culture is incubating and being continuously monitored for growth. Final report to follow. 12/14/18 07:16 Blood Culture - Preliminary Peripheral Venipuncture Culture is incubating and being continuously monitored for growth. Final report to follow. - Clinical Findings Intake & Output: Intake & Output 12/14/18 12/15/18 12/15/18 23:59 07:59 15:59 Intake Total 50 / 50 50 / 50 104 / 104 Balance 50 / 50 50 / 50 104 / 104 Consult Discharge Plan - Plan Instructions: Urinary Tract Infection in Men (DC), Chronic Obstructive Pulmonary Disease (DC), Anemia (GEN) Referrals: Brock Lyle MD [Non-Partnered Physician] - 12/29/18 8:00 am (IN [facility]) NONE,PCP [Primary Care Provider] - (Patient is from [facility]) <Moshe Tee - Last Filed: 12/16/18 16:57> Date of Encounter: 12/16/18 All Systems: The remainder of the systems were reviewed and are negative Results - Laboratory Findings CBC and BMP: 12/15/18 05:51 12/15/18 05:51 ABG ABG pH 7.40 pH Units (7.32-7.45) 12/15/18 16:20 ABG pCO2 49 mmHg (35-45) H 12/15/18 16:20 ABG pO2 121 mmHg (85-104) H D 12/15/18 16:20 ABG O2 Saturation 99 % (95-98) H 12/15/18 16:20 PT/INR, D-dimer PT 14.0 Seconds (9.4-12.1) H 12/14/18 07:16 Abnormal lab findings: Abnormal lab results RBC 3.01 M/mcL (4.19-5.50) L 12/15/18 05:51 Hgb 7.1 g/dL (12.9-16.9) L 12/15/18 05:51 Hct 24.9 % (37.5-50.1) L 12/15/18 05:51 MCV 82.7 fL (83.0-100.0) L 12/15/18 05:51 MCH 23.6 pg (28.0-33.3) L 12/15/18 05:51 MCHC 28.5 g/dL (31.6-35.5) L 12/15/18 05:51 RDW 17.7 % (11.5-14.5) H 12/15/18 05:51 Plt Count 107 K/mcL (140-400) L 12/15/18 05:51 MPV 9.3 fL (9.4-12.4) L 12/15/18 05:51 Platelet Estimate Slight Decrease (Normal) L 12/15/18 05:51 Hypochromasia Present (Not Present) A 12/15/18 05:51 Anisocytosis 1+ (Not Present) A 12/15/18 05:51 ESR >= 130 mm/hr (0-10) H 12/11/18 05:30 PT 14.0 Seconds (9.4-12.1) H 12/14/18 07:16 ABG pCO2 49 mmHg (35-45) H 12/15/18 16:20 ABG pO2 121 mmHg (85-104) H D 12/15/18 16:20 ABG HCO3 30 mEq/L (21-27) H 12/15/18 16:20 ABG Total CO2 32 mEq/L (20-26) H 12/15/18 16:20 ABG O2 Saturation 99 % (95-98) H 12/15/18 16:20 ABG Base Excess 5 mEq/L (-2 to 3) H 12/15/18 16:20 Chloride 108 mEq/L (98-107) H 12/15/18 05:51 Magnesium 1.5 mg/dL (1.6-2.6) L 12/15/18 05:51 AST 9 Units/L (13-39) L 12/09/18 20:27 C-Reactive Protein 96 mg/L (Less than 10) H 12/11/18 05:30 Albumin 2.9 g/dL (3.5-5.7) L 12/09/18 20:27 Globulin 3.8 g/dL (2.4-3.5) H 12/09/18 20:27 Albumin/Globulin Ratio 0.8 (1.1-2.2) L 12/09/18 20:27 Ur Specimen Adequacy See below A 12/09/18 22:01 Urine Clarity Cloudy (Clear) A 12/09/18 22:01 Urine Protein 30 mg/dL (Neg-Trace) H 12/09/18 22:01 Urine Blood Large (Negative) H 12/09/18 22:01 Ur Leukocyte Esterase Large (Negative) H 12/09/18 22:01 Urine Microscopic WBC 15-30 per hpf (0-3) H 12/09/18 22:01 Urine Yeast Moderate per hpf (None Seen) H 12/09/18 22:01 Ur Culture Indicated? YES (NO) A 12/09/18 22:01 - Microbiology Findings Microbiology Findings: Microbiology, Last 48 Hours 12/10/18 08:34 Blood Culture - Final Peripheral Central Cath, Picc No growth. Final report. 12/09/18 20:27 Blood Culture - Final Peripheral Venipuncture No growth. Final report. 12/09/18 20:27 Blood Culture - Final Peripheral Venipuncture No growth. Final report. 12/11/18 18:25 Wound Culture - Preliminary Left Ankle P. aeruginosa MDRO 12/09/18 22:01 Urine Culture - Preliminary Urine,[place] Yeast Species Acinetobacter baumannii MDRO 12/14/18 07:16 Blood Culture - Preliminary Peripheral Venipuncture Culture is incubating and being continuously monitored for growth. Final report to follow. 12/14/18 07:16 Blood Culture - Preliminary Peripheral Venipuncture Culture is incubating and being continuously monitored for growth. Final report to follow. - Clinical Findings Intake & Output: Intake & Output 12/15/18 12/15/18 12/15/18 07:59 15:59 23:59 Intake Total 50 / 50 104 / 104 Balance 50 / 50 104 / 104 - Attending Attestation I examined this patient and my medical decision-making was reviewed with the Resident Physician. I agree with the documented findings, disposition and treatment plan as described except to the extent set forth below. Patient seen and examined. Labs, radiology, chart personally reviewed. Agree with resident's history and physical, assessment, plan with following comments: LEARNING AND DEVELOPMENT ASSOCIATE: Patient is not follows commands, Pulmonary: I was called by the primary team to evaluate this patient since his hypoxia is worsening and when I arrived in 2A a pond him in mild respiratory distress, unfortunately patient not able to tolerate noninvasive ventilation and suspicion of aspiration as well as mucous plaques all were again still have patient on noninvasive ventilation and patient was placed on high flow oxygen with the still no significant improvement and patient was transferred to ICU where patient needed to be intubated with invasive mechanical ventilation and his power of admitted attorneys was aware to hold the events. After patient was stabilized in the intensive care unit mainly from the pulmonary standpoint there was already a bed at [facility] and patient was transferred due to his multiple medical problems and also his sepsis. Unfortunately overall prognosis is poor for this patient. Cardiovascular: stable GI: Nutrition per dietary and GI prophylaxis per routine Heme: DVT prophylaxis per routine ID: Continue antibiotics and plan to de-escalation Renal; urine out put and renal funtion reviewed Endorcine: blood glucose is monitored Lines: all lines checked and no evidence of infections Skin: skin care to prevent pressure ulcers per nursing routine care I spent 45 min of Critical Care time with this patient. It involved decision making of high complexity to assess, manipulate, and support vital organ system failure and/or to prevent further life threatening deterioration of the patient's condition. The time involved in the performance of separately reportable procedures was not counted toward critical care time.
[2018-12-15] MEDS ORDERED: 0.9 % Sodium Chloride 1,000 ML IVC SCH (16:00)
[2018-12-15] MEDS ORDERED: Pantoprazole 40 MG VIAL IVP SCH (16:00)
[2018-12-15] MEDS ORDERED: Artificial Tears SOLN 15 ML BOTTLE BOTH EYES SCH (16:00)
[2018-12-15] MEDS ORDERED: MetroNIDAZOLE 500 MG/100 ML 500 MG/100 ML BAG IVPB SCH (16:00)
--- NOTE | 2018-12-15 16:05 | Event Note ---
Date of Encounter: 12/15/18 Time of Encounter: 15:30 Called by the nurse to the patient's room as he was having oxygenation saturations in the 70s to 80s on oxy mask. The patient was not taking deep breaths and was breathing by mouth. He was speaking, but not making sense and was tachycardic. Chest x-ray was obtained demonstrating a new right basilar opacity. Respiratory therapy was called with attempts to place BiPAP on the patient however they were unable to find a mask that fit his face. Dr. Tee was consulted with pulmonology for possible transfer to ICU. Patient was subsequently transferred and immediately intubated. I did call Dr. [place] at [facility] to update on the patient's status. They are still attempting to find a bed for him. I also called the patient's daughter Katrin Carrasco who is the POA and updated her on his status and intubation. I did obtaine verbal consent with her for bedside bronchoscopy to be performed by Dr. Tee. This telephone consent was confirmed by Dr. Fotoe as well.
[2018-12-15 16:23] LABS: ABG Base Excess 5 mEq/L (-2 to 3); ABG HCO3 30 mEq/L (21-27); ABG Oxygen Saturation 99 % (95-98); ABG PCO2 49 mmHg (35-45); ABG PO2 121 mmHg (85-104); ABG TCO2 32 mEq/L (20-26); Blood Gas Modality VC; Blood Gas PEEP 5 cm H2O; Blood Gas Respiration Rate 12; Blood Gas VT 500 cc
[2018-12-15] MEDS: OLANZapine 10 MG TAB.RAPDIS PO SCH (16:30)
--- NOTE | 2018-12-15 17:17 | Procedure Note ---
Date of procedure: 12/15/18 Pre-op diagnosis: Respiratory failure Post-op diagnosis: same Procedure: This patient was having acute respiratory failure and he was transferred to ICU. His oxygen saturation was in the 60s and he was given 20 mg of etomidate and then with Olivas blade to 3 and ET tube size 8 he was intubated without immediate complications. There was significant mucopurulent secretion was suctioned out. Patient also had bronchoscopy after that with location of ET t ube in appropriate in satisfactory position. There was condensation in the ET tube and bilateral breath sounds with changing color of capnometer confirming placement of ET tube. ET tube was secured at the lip at 26. Anesthesia: IV sedation Surgeon: Moshe Tee Was there an sound assistant present: No Estimated blood loss (cc): 0 Specimen: 0 Disposition: ICU
[2018-12-15 18:03] LABS: Adenovirus Not Detected (Not Detect); Bordetella Pertussis Not Detected (Not Detect); Chlamydophila pneumoniae Not Detected (Not Detect); Coronavirus 229E Not Detected (Not Detect); Coronavirus HKU1 Not Detected (Not Detect); Coronavirus NL63 Not Detected (Not Detect); Coronavirus OC43 Not Detected (Not Detect); Human Metapneumovirus Not Detected (Not Detect); Human Rhinovirus/Enterovirus Not Detected (Not Detect); Influenza A Subtype 2009 H1 Not Detected (Not Detect); Influenza A Untypeable Not Detected (Not Detect); Influenza B Not Detected (Not Detect); Mycoplasma pneumoniae Not Detected (Not Detect); Parainfluenza Virus 1 Not Detected (Not Detect); Parainfluenza Virus 2 Not Detected (Not Detect); Parainfluenza Virus 3 Not Detected (Not Detect); Parainfluenza Virus 4 Not Detected (Not Detect); Respiratory Syncytial Virus Not Detected (Not Detect)
[2018-12-15 18:17] LABS: Bilirubin,Urine Negative (Negative); Blood,Urine Negative (Negative); Clarity,Urine Clear (Clear); Color,Urine Yellow (Yellow); Glucose,Urine (UA) Normal (Normal); Ketones,Urine 15 mg/dL (Negative); Leukocyte Esterase,Urine Negative (Negative); Nitrite,Urine Negative (Negative); PH,Urine 6.5 pH Units (5.0-8.0); Protein,Urine 30 mg/dL (Neg-Trace); Specific Gravity,Urine 1.014 (1.010-1.025); Urobilinogen,Urine Normal (Normal)
[2018-12-15 18:35] LABS: Squamous Epithelial Cell,Urine Few per lpf (None-Few)
[2018-12-15 20:31] VITALS: BP 81/49
[2018-12-15] MEDS ORDERED: *HR* Midazolam HCl 2 MG/2 ML VIAL IV ONE (20:31)
[2018-12-15] MEDS ORDERED: *HR* Etomidate 20 MG/10 ML AMPUL IVP ONE (20:31)
[2018-12-15] MEDS ORDERED: *HR* Midazolam HCl 5 MG/5 ML VIAL IVP ONE (20:31)
[2018-12-15] MEDS ORDERED: Chlorhexidine Rinse 15 ML MOUTHWASH MM SCH (21:00)
[2018-12-15 21:47] LABS: Appearance of Body Fluid Cloudy (Clear); Source of Body Fluid RIGHT LOWER LOBE LUN; Volume of Body Fluid 17 mL
== END 2018-12-15 20:32 | DRG 380 ==
LOC: 2ANU 19:18 → EMEROOARM 19:18 → SUATTDRO 23:35 → 2ANU 23:37 → ICNU 12-15 15:16
PROVIDERS: ADMIT Family Medicine; ATTEND Internal Medicine